=== PATIENT | male | born 1970 | race Caucasian/White ===

== ENCOUNTER → 2016-02-28 | Emergency (ER) | payer OTHER ==
[~2016-02-28] MED LIST: CEFAZOLIN (PRE-DOCKED) 50 ML IVPB ONE; CLINDAMYCIN 600MG PREMIX IVPB 50 ML IVPB ONE; FOLIC ACID 1 MG TABLET (FP) ONE; LORazepam 0.5 MG TABLET ONE; METHADONE HCL 10 MG TABLET ONE; ONDANSETRON 4 MG/2 ML VIAL ONE; PIPERACILLIN/TAZOB 3.375 GM 50 ML IVPB ONE; POTASSIUM CHLORIDE 40 MEQ/30 ML UNIT DOSE CUP ONE; POTASSIUM CHLORIDE TABS 20 MEQ TABLET.ER (FP) PO ONE; SILVER SULFADIAZINE 1% TOP CREAM 50 GM JAR TP ONE; VANCOMYCIN 1 GRAM (PRE-DOCKED) 250 ML IVPB ONE; chlordiazePOXIDE HCL 25 MG CAPSULE ONE; morphine CARPU-JECT 2 MG/1 ML DISP.SYRIN ONE; morphine CARPU-JECT 4 MG/1 ML DISP.SYRIN ONE
[2016-02-28 03:12] VITALS: BP 118/68; PULSE 95; TEMP 98; BMI 34.5
--- NOTE | 2016-02-28 04:20 | PDOC ---
History of Present Illness - General Chief Complaint: Injury Stated Complaint: FALL ( NOSE BLEED) Time Seen by Provider: 02/28/16 03:19 History Source: Patient, Family Exam Limitations: No Limitations - History of Present Illness Initial Comments: 02/28/16 04:15 Patient is a 45 year old male with h/o exploratary laparotomy for perforated viscus with bowel resection hernia c/o laceration to the nose since [employer]. States was walking up the stairs and got his foot caught on a nail on the step, tripped and fell on the steps hitting his nose. He has no LOC, no dizziness, no prodrome. Tetanus is UTD. PMD: [facility] PMHX: as above PSOCHX: (+) occ etoh, (-) cig, (-) drug PFamHx: noncontributory ALL: NKDA GENERAL/CONSTITUTIONAL: [No fever or chills. No weakness. No weight change.] HEAD, EYES, EARS, NOSE AND THROAT: [No change in vision. No ear pain or discharge. No sore throat.] CARDIOVASCULAR: [No chest pain or shortness of breath.] RESPIRATORY: [No cough, wheezing, or hemoptysis.] GASTROINTESTINAL: [No nausea, vomiting, diarrhea or constipation. No rectal bleeding.] GENITOURINARY: [No dysuria, frequency, or change in urination.] MUSCULOSKELETAL: [No joint or muscle swelling or pain. No neck or back pain.] SKIN AND BREASTS: (+) open wound to the left calf (chronic) or easy bruising.] NEUROLOGIC: [No headache, vertigo, loss of consciousness, or loss of sensation.] PSYCHIATRIC: [No depression or anxiety.] ENDOCRINE: [No increased thirst. No abnormal weight change.] HEMATOLOGIC/LYMPHATIC: [No anemia, easy bleeding, or history of blood clots.] ALLERGIC/IMMUNOLOGIC: [No hives or skin allergy. No latex allergy.] GENERAL: [The patient is awake, alert, and fully oriented, in no acute distress. ] HEAD: [Normal with no signs of trauma.] EYES: [Pupils equal, round and reactive to light, extraocular movements intact, sclera anicteric, conjunctiva clear.] ENT: [Ears normal, nares patent, oropharynx clear without exudates. Moist mucous membranes.] NECK: [Normal range of motion, supple without lymphadenopathy, JVD, or masses.] LUNGS: [Breath sounds equal, clear to auscultation bilaterally. No wheezes, and no crackles.] HEART: [Regular rate and rhythm, normal S1 and S2 without murmur, rub.] ABDOMEN: [Soft, nontender, normoactive bowel sounds. No guarding, no rebound. No masses.] EXTREMITIES: [Normal range of motion, no edema. No clubbing or cyanosis. No cords, erythema, or tenderness.] NEUROLOGICAL: [Cranial nerves II through XII grossly intact. Normal speech, normal gait.] PSYCH: [Normal mood, normal affect.] SKIN: (+) 2 cm laceration to the bridge of the nose, no septal hematoma, no epistaxis, large open wound to the left calf with good granulating tissue. Warm , Dry, normal turgor, no rashes or lesions noted.] Past History - Past Medical History Allergies/Adverse Reactions: Allergies Allergy/AdvReac Type Severity Reaction Status Date / Time No Known Allergies Allergy Verified 02/28/16 02:57 Home Medications: Ambulatory Orders Furosemide [Lasix -] 40 mg PO DAILY 03/27/15 Lactulose 20 gm PO Q8H 03/27/15 Methadone [Dolophine -] 10 mg PO DAILY 03/27/15 Pantoprazole Sodium [Protonix] 40 mg PO DAILY 03/27/15 Propranolol HCl 10 mg PO Q8H 03/27/15 Quetiapine Fumarate [Seroquel -] 25 mg PO BID 03/27/15 Spironolactone 50 mg PO DAILY 03/27/15 Doxepin HCl [Sinequan -] 10 mg PO HS 02/25/16 Folic Acid 1 mg PO DAILY 02/25/16 Thiamine HCl [Vitamin B1] 100 mg PO BID 02/25/16 GI Disorders: Yes (GI BLEED) Liver Disease: Yes (HEPATITS B) - Surgical History Abdominal Surgery: Yes (GI BLEED/HERNIA) Neurologic Surgery: Yes - Psycho/Social/Smoking Cessation Hx Anxiety: No Suicidal Ideation: No Smoking Status: Yes Smoking History: Former smoker Have you smoked in the past 12 months: Yes Number of Cigarettes Smoked Daily: 10 If you are a former smoker, when did you quit?: 2013 Information on smoking cessation initiated: No 'Breaking Loose' booklet given: 02/25/16 Hx Alcohol Use: Yes Drug/Substance Use Hx: Yes Substance Use Type: Opiates Hx Substance Use Treatment: Yes (MMTP) *Physical Exam - Vital Signs Last Vital Signs Temp Pulse Resp BP Pulse Ox 98 F 95 H 18 118/68 99 02/28/16 02:51 02/28/16 02:51 02/28/16 02:51 02/28/16 02:51 02/28/16 02:51 Procedures - Laceration/Wound Repair Proximal Nose Wound Length: to 2.5 cm Wound Explored: clean Wound's Depth, Shape: superficial, irregular Irrigated w/ Saline: Yes Betadine Prep: Yes Wound Repaired With: Steri-strips, Dermabond Medical Decision Making - Medical Decision Making 02/28/16 04:20 Patient is a 45 year old male with h/o exploratary laparotomy for perforated viscus with bowel resection hernia c/o laceration to the nose since [employer], mechanical fall. Will dermabond and strips Wound care provided by the nurse I discussed the physical exam findings, ancillary test results and final diagnoses with the patient. I answered all of the patient's questions. The patient was satisfied with the care received and felt comfortable with the discharge plan and treatment plan. The Patient agrees to follow up with the primary care physician within 24-72 hours. *DC/Admit/Observation/Transfer Diagnosis at time of Disposition: Laceration, Open wound - Discharge Dispostion Disposition: HOME Condition at time of disposition: Stable - Patient Instructions Printed Discharge Instructions: DI for Laceration Repair With Dermabond Additional Instructions: Do not put any oil, lotions or cream on the laceration, wash with soap and water the strip with fall off in a few days. Return to the ED if the wound becomes hot, red, and discharging, for fever.
== END | disposition home or self-care (01) ==
LOC: JER 02:48
PROC: 09QKXZZ Repair Nasal Mucosa and Soft Tissue, External Approach (ICD-10-PCS; principal; 2016-02-28)
DX: S01.21XA Laceration without foreign body of nose, initial encounter (principal); S81.802A Unspecified open wound, left lower leg, initial encounter; W10.8XXA Fall (on) (from) other stairs and steps, initial encounter; Y93.89 Activity, other specified; Y92.89 Other specified places as the place of occurrence of the external cause; Y99.8 Other external cause status
CPT/HCPCS: 12011-25; 99282-25

== ENCOUNTER 2016-03-29 03:32 | Emergency (ER) | payer OTHER ==
[2016-03-29] MEDS ORDERED: KETOROLAC TROMETHAMINE 60 MG/2 ML VIAL IM ONE (05:00)
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
[2016-03-29] MEDS ORDERED: KETOROLAC TROMETHAMINE 60 MG/2 ML VIAL ONE (05:15)
[2016-03-29 05:31] VITALS: BP 145/85; PULSE 89; TEMP 98.1; BMI 35.4
== END 2016-03-29 06:29 | disposition home or self-care (01) ==
LOC: JER 03:32
PROC: 3E0233Z Introduction of Anti-inflammatory into Muscle, Percutaneous Approach (ICD-10-PCS; principal; 2016-03-29)
DX: L03.115 Cellulitis of right lower limb (principal); I83.018 Varicose veins of right lower extremity with ulcer other part of lower leg; R18.8 Other ascites; F10.10 Alcohol abuse, uncomplicated; F11.10 Opioid abuse, uncomplicated; B18.2 Chronic viral hepatitis C
CPT/HCPCS: 96372; 99284-25

== ENCOUNTER 2016-05-28 13:09 | Inpatient (IN) | payer OTHER ==
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
[2016-05-28 14:22] VITALS: BMI 38.0
[2016-05-28 15:29] LABS: BASOPHIL 2.6 % (0-2.0); EOSINOPHIL 6.5 % (0-4.5); MCH 26.9 pg (25.7-33.7); MEAN CELL VOLUME 81.4 fl (80-96); NEUTROPHILS 55.8 % (42.8-82.8); PLATELET COUNT 58 K/MM3 (134-434); RDW 18.7 % (11.9-15.9); WHITE BLOOD COUNT 3.7 K/mm3 (4.0-10.0)
[2016-05-28 16:04] LABS: ALBUMIN 2.4 g/dl (3.4-5.0); ANION GAP 10 (8-16); CALCIUM 7.6 mg/dL (8.5-10.1); CO2 27 mmol/L (21-32); COCKROFT - GAULT 260.05; CREATININE 0.5 mg/dL (0.7-1.3); GLUCOSE,RANDOM 86 mg/dL (74-106); SGOT/AST 134 U/L (15-37)
[2016-05-28 16:14] LABS: ALK PHOS 350 U/L (45-117); BILIRUBIN,TOTAL 1.8 mg/dL (0.2-1.0); SGPT/ALT 61 U/L (12-78); TOT PROT 7.9 g/dl (6.4-8.2)
[2016-05-28] MEDS ORDERED: POTASSIUM CHLORIDE TABS 20 MEQ TABLET.ER (FP) PO ONE (17:35)
[2016-05-28] MEDS ORDERED: MAGNESIUM SULF 50% (8.12 MEQ/2 ML-1 GM VIAL) IVPB ONE (19:20)
[2016-05-28] MEDS ORDERED: FOLIC ACID INJECTION - 1 MG, THIAMINE HCL 100 MG, MULTIVIT INJECTION ADULT 10 ML in SOD... IVPB ONE (20:24)
[2016-05-28] MEDS ORDERED: KCL 10 MEQ IVPB 100 ML IVPB ONE ×2 (21:43→23:12)
[2016-05-28] MEDS ORDERED: KCL 10 MEQ IVPB 100 ML IVPB SCH (21:45)
[2016-05-28] MEDS: KCL 10 MEQ IVPB 100 ML IVPB SCH ×2 (21:48→23:21)
[2016-05-28 23:48] LABS: ALBUMIN 2.2 g/dl (3.4-5.0); ANION GAP 9 (8-16); BILIRUBIN,TOTAL 1.9 mg/dL (0.2-1.0); CALCIUM 7.3 mg/dL (8.5-10.1); CO2 28 mmol/L (21-32); COCKROFT - GAULT 260.05; CREATININE 0.5 mg/dL (0.7-1.3); GLUCOSE,RANDOM 105 mg/dL (74-106); SGOT/AST 116 U/L (15-37); SGPT/ALT 53 U/L (12-78); TOT PROT 7.2 g/dl (6.4-8.2)
[2016-05-28 23:49] LABS: ALK PHOS 284 U/L (45-117)
[2016-05-29] MEDS ORDERED: KCL 10 MEQ IVPB 100 ML IVPB ONE (00:46)
[2016-05-29] MEDS ORDERED: POTASSIUM CHLORIDE TABS 20 MEQ TABLET.ER (FP) PO ONE ×2 (02:32→03:45)
[2016-05-29] MEDS ORDERED: VANCOMYCIN 1,000 MG in DEXTROSE 5%-WATER - 250 ML IVPB ONE (06:07)
[2016-05-29] MEDS ORDERED: VANCOMYCIN 1 GRAM (PRE-DOCKED) 250 ML IVPB ONE (08:16)
[2016-05-29] MEDS ORDERED: ACETAMINOPHEN 325 MG TABLET (FP) ONE (08:27)
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
[2016-05-29] MEDS ORDERED: chlordiazePOXIDE HCL 25 MG CAPSULE PO PRN (09:39)
[2016-05-29] MEDS ORDERED: chlordiazePOXIDE HCL 25 MG CAPSULE PO ONE (09:39)
[2016-05-29] MEDS: HEPARIN NA (PORCINE) 5,000 UNITS/ML 1ML VIAL SQ SCH ×2 (10:27→23:14)
[2016-05-29] MEDS: CLINDAMYCIN 600MG PREMIX IVPB 50 ML IVPB SCH ×2 (10:27→17:06)
[2016-05-29] MEDS ORDERED: METHADONE HCL 5 MG TABLET PO SCH (11:45)
[2016-05-29] MEDS: METHADONE HCL 5 MG TABLET PO SCH (12:13)
[2016-05-29] MEDS: chlordiazePOXIDE HCL 25 MG CAPSULE PO SCH ×2 (16:46→23:14)
[2016-05-30] MEDS: CLINDAMYCIN 600MG PREMIX IVPB 50 ML IVPB SCH ×2 (01:28→11:10)
[2016-05-30] MEDS: chlordiazePOXIDE HCL 25 MG CAPSULE PO SCH ×2 (05:31→11:09)
[2016-05-30] MEDS: METHADONE HCL 5 MG TABLET PO SCH (06:18)
[2016-05-30 08:22] LABS: MCH 26.8 pg (25.7-33.7); MCHC 32.7 g/dl (32.0-35.9); MEAN PLT VOLUME 8.3 fl (7.5-11.1); PLATELET COUNT 42 K/MM3 (134-434); WHITE BLOOD COUNT 2.6 K/mm3 (4.0-10.0)
[2016-05-30 08:59] LABS: ALBUMIN 2.1 g/dl (3.4-5.0); ALK PHOS 241 U/L (45-117); ANION GAP 10 (8-16); BILIRUBIN,TOTAL 2.7 mg/dL (0.2-1.0); CALCIUM 8.1 mg/dL (8.5-10.1); CO2 23 mmol/L (21-32); COCKROFT - GAULT 260.05; CREATININE 0.5 mg/dL (0.7-1.3); GLUCOSE,RANDOM 83 mg/dL (74-106); MAGNESIUM 1.7 mg/dL (1.8-2.4); SGOT/AST 124 U/L (15-37); SGPT/ALT 53 U/L (12-78); TOT PROT 7.1 g/dl (6.4-8.2)
[2016-05-30] MEDS: HEPARIN NA (PORCINE) 5,000 UNITS/ML 1ML VIAL SQ SCH (11:10)
--- NOTE | 2016-05-30 13:21 | PN ---
Progress Note (short form) - Note Progress Note: ID Consult dictated Cellulitis R LE Fever,possible sepsis Non-healing R LE ulcers Chronic liver disease Polysubstance use Empiric cefazolin Wound care evaluation Await BC
[2016-05-30] MEDS ORDERED: POTASSIUM CHLORIDE TABS 20 MEQ TABLET.ER (FP) PO ONE (13:35)
[2016-05-30] MEDS ORDERED: MAGNESIUM OXIDE 400 MG TABLET (FP) PO ONE (13:45)
[2016-05-30] MEDS: CEFAZOLIN (PRE-DOCKED) 50 ML IVPB SCH ×2 (14:11→17:59)
--- NOTE | 2016-05-30 14:37 | PN ---
Progress Note (short form) - Note Progress Note: Subjective: The patient was seen and examined at the bedside, he states he has had the wounds on his left leg for months and sees Dr. Garcia in the office. He reports having a casting operator but does not recall her name. Quant gold from previous admission positive, now with no evidence of Tb. No hemoptysis, no chest x-ray evidence. Discussed with Dr. Gasca, will need outpatient follow-up, no intervention now. Current Medications Generic Name Dose Route Start Last Admin Trade Name Freq PRN Reason Stop Dose Admin Chlordiazepoxide HCl 25 mg 05/29/16 09:39 Librium - PO 06/01/16 09:38 Q4H PRN WITHDRAWAL(CONT SUBST) Chlordiazepoxide HCl 25 mg 05/30/16 17:00 Librium - PO 05/31/16 11:01 T4C-VRA KENDRICK Chlordiazepoxide HCl 15 mg 05/31/16 17:00 Librium - PO 06/01/16 11:01 [id number] KENDRICK Heparin Sodium (Porcine) 5,000 unit 05/29/16 10:00 05/30/16 11:10 Heparin - SQ 5,000 unit BID KENDRICK Administration Cefazolin Sodium 50 mls @ 100 mls/hr 05/30/16 13:30 05/30/16 14:11 Ancef 1gm Ivpb (Pre-Docked) IVPB 100 mls/hr Q8H-IV KENDRICK Administration Methadone HCl 5 mg 05/29/16 12:15 05/30/16 06:18 Dolophine - PO 5 mg DAILY@0600 KENDRICK Administration Objective: Vital Signs Period Temp Pulse Resp BP Sys/Choi Pulse Ox Last 24 Hr 98.3 F-99.4 F 64-78 16-20 125-139/66-80 97-100 Physical Exam: General: NAD, A&Ox3 HEENT: No tongue fasiculations Lungs: Patient refused Heart: Patient refused Abd: Patient refused Ext: RLE with dressing, patient refused to take dressing off CBCD WBC 2.6 K/mm3 (4.0-10.0) L 05/30/16 06:00 RBC 3.74 M/mm3 (4.00-5.60) L 05/30/16 06:00 Hgb 10.0 GM/dL (11.7-16.9) L 05/30/16 06:00 Hct 30.7 % (35.4-49) L 05/30/16 06:00 MCV 82.0 fl (80-96) 05/30/16 06:00 MCHC 32.7 g/dl (32.0-35.9) 05/30/16 06:00 RDW 18.0 % (11.9-15.9) H 05/30/16 06:00 Plt Count 42 K/MM3 (134-434) L D 05/30/16 06:00 MPV 8.3 fl (7.5-11.1) 05/30/16 06:00 CMP Sodium 142 mmol/L (136-145) 05/30/16 06:00 Potassium 3.4 mmol/L (3.5-5.1) L 05/30/16 06:00 Chloride 109 mmol/L (98-107) H 05/30/16 06:00 Carbon Dioxide 23 mmol/L (21-32) 05/30/16 06:00 Anion Gap 10 (8-16) 05/30/16 06:00 BUN 7 mg/dL (7-18) D 05/30/16 06:00 Creatinine 0.5 mg/dL (0.7-1.3) L 05/30/16 06:00 Creat Clearance w eGFR > 60 (>60) 05/30/16 06:00 Random Glucose 83 mg/dL (74-106) D 05/30/16 06:00 Calcium 8.1 mg/dL (8.5-10.1) L 05/30/16 06:00 Total Bilirubin 2.7 mg/dL (0.2-1.0) H D 05/30/16 06:00 AST 124 U/L (15-37) H 05/30/16 06:00 ALT 53 U/L (12-78) 05/30/16 06:00 Alkaline Phosphatase 241 U/L (45-117) H 05/30/16 06:00 Total Protein 7.1 g/dl (6.4-8.2) 05/30/16 06:00 Albumin 2.1 g/dl (3.4-5.0) L 05/30/16 06:00 Microbiology 05/29/16 09:50 Blood - Peripheral Venous Blood Culture - Preliminary NO GROWTH OBTAINED AFTER 24 HOURS, INCUBATION TO CONTINUE FOR 4 DAYS. 05/29/16 09:50 Blood - Peripheral Venous Blood Culture - Preliminary NO GROWTH OBTAINED AFTER 24 HOURS, INCUBATION TO CONTINUE FOR 4 DAYS. Assessment: This is a 45 year old male with PMHx of alcohol abuse, SBO s/p partial bowel resection, HCV, possible liver cirrhosis, previous heroin user, ascites, esophageal varices, rheumatoid arthritis who presented to the ED after being found unresponsive possibly 2/2 opiate overdose. Plan: 1) ID: RLE cellulitis - Per ID will start Cefazolin - F/u blood cultures - F/u Dr. Garcia for wound care (patient follows outpatient) - Appreciate ID consult 2) Psych: Opiate overdose - Continue Methadone Acute alcohol withdrawal - Continue Librium taper - Continue Folic acid - Continue thiamine - Continue Multivitamin 3) GI: Liver cirrhosis, HCV - Follows with outpatient casting operator Thrombocytopenia, worsening 2/2 cirrhosis - Continue to trend - Transfuse it platelets <10 with no active bleeding Esophageal varices - No active issues 4) F/E/N: - Monitor electrolytes - Hypomagnesemia: replete - Hypokalemia: replete - Sodium controlled diet 5) Prophylaxis: - Hold all chemical DVT prophylaxis 2/2 thrombocytopenia - OOB ambulating - SCD left leg only (not on right leg 2/2 ulcerations) 6) Dispo: - Requires continued inpatient care CODE STATUS: FULL CODE Visit type - Emergency Visit Emergency Visit: Yes ED Registration Date: 05/29/16 Care time: The patient presented to the Emergency Department on the above date and was hospitalized for further evaluation of their emergent condition. - New Patient This patient is new to me today: Yes Date on this admission: 05/30/16 - Critical Care Critical Care patient: No
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
[2016-05-30] MEDS ORDERED: chlordiazePOXIDE HCL 25 MG CAPSULE PO SCH (17:00)
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
[2016-05-30] MEDS ORDERED: COLLAGENASE CLOSTRIDIUM HIST. 30 GRAMS TUBE TP SCH (19:00)
[2016-05-30] MEDS ORDERED: traMADol HCL 50 MG TABLET PO PRN (20:45)
[2016-05-30 21:28] LABS: URINE MARIJUANA THC NEGATIVE ng/ml (CUTOFF=50)
[2016-05-30 22:57] VITALS: BP 141/72; PULSE 96; TEMP 99.8
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
[2016-05-31] MEDS ORDERED: MULTIVITAMINS (DAILY MVI) TABLET (FP) PO SCH (10:00)
[2016-05-31] MEDS ORDERED: THIAMINE HCL 100 MG TABLET (FP) PO SCH (10:00)
[2016-05-31] MEDS ORDERED: FOLIC ACID 1 MG TABLET (FP) PO SCH (10:00)
--- NOTE | 2016-05-31 12:58 | EKG ---
Test Reason : Blood Pressure : / mmHG Vent. Rate : 081 BPM Atrial Rate : 081 BPM P-R Int : 140 ms QRS Dur : 090 ms QT Int : 422 ms P-R-T Axes : 058 014 036 degrees QTc Int : 490 ms NORMAL SINUS RHYTHM PROLONGED QT ABNORMAL ECG WHEN COMPARED WITH ECG OF 17-MAR-2016 02:08, NO SIGNIFICANT CHANGE WAS FOUND Confirmed by SUZANNE VARGAS MD ([id number]) on 05/31/2016 12:57:26 PM Referred By: Confirmed By:SUZANNE VARGAS MD
[2016-05-31] MEDS ORDERED: chlordiazePOXIDE 5 MG CAPSULE PO SCH (17:00)
[2016-06-01] MEDS ORDERED: chlordiazePOXIDE 5 MG CAPSULE PO SCH (17:00)
== END 2016-05-30 22:00 | disposition left against medical advice (07) | DRG 812 ==
LOC: JER 13:09 → JERBED 05-29 06:09 → UNDOADMIN 05-29 06:17 → JERBED 05-29 06:17 → J7W 05-29 09:33
PROVIDERS: ADMIT Internal Medicine; ATTEND Internal Medicine
PROC: HZ2ZZZZ Detoxification Services for Substance Abuse Treatment (ICD-10-PCS; principal; 2016-05-29)
DX: T40.2X1A Poisoning by other opioids, accidental (unintentional), initial encounter (principal); A41.89 Other specified sepsis; R00.0 Tachycardia, unspecified; I83.019 Varicose veins of right lower extremity with ulcer of unspecified site; L97.919 Non-pressure chronic ulcer of unspecified part of right lower leg with unspecified severity; L03.115 Cellulitis of right lower limb; K70.30 Alcoholic cirrhosis of liver without ascites; F11.10 Opioid abuse, uncomplicated; F17.210 Nicotine dependence, cigarettes, uncomplicated; F10.230 Alcohol dependence with withdrawal, uncomplicated; F19.10 Other psychoactive substance abuse, uncomplicated; E83.42 Hypomagnesemia; E87.6 Hypokalemia; D69.6 Thrombocytopenia, unspecified; I85.00 Esophageal varices without bleeding; M06.80 Other specified rheumatoid arthritis, unspecified site; K42.9 Umbilical hernia without obstruction or gangrene; B19.10 Unspecified viral hepatitis B without hepatic coma; I50.9 Heart failure, unspecified; R18.8 Other ascites
CPT/HCPCS: 36415; 71010-TC; 80053; 80307; 83605; 83735; 85025; 85027; 87040; 93005; 93010; 93971-TC; 99285-25; J1644

== ENCOUNTER 2016-07-26 05:15 | Inpatient (IN) | payer OTHER ==
[2016-07-26] MEDS ORDERED: morphine CARPU-JECT 4 MG/1 ML DISP.SYRIN ONE (05:48)
[2016-07-26] MEDS ORDERED: ONDANSETRON 4 MG/2 ML VIAL IVPUSH ONE (05:50)
[2016-07-26] MEDS ORDERED: VANCOMYCIN 1,000 MG in DEXTROSE 5%-WATER - 250 ML IVPB ONE (05:50)
[2016-07-26] MEDS ORDERED: morphine CARPU-JECT 4 MG/1 ML DISP.SYRIN IVPUSH ONE (05:50)
[2016-07-26] MEDS ORDERED: SODIUM CHLORIDE 1,000 ML IV STA (05:50)
--- NOTE | 2016-07-26 05:56 | PDOC ---
History of Present Illness - General Chief Complaint: Laceration Stated Complaint: BLEEDING/RT LEG WOUND Time Seen by Provider: 07/26/16 05:21 History Source: Patient Exam Limitations: No Limitations - History of Present Illness Initial Comments: 07/26/16 06:21 46yo Male patient w/ PmHx: EtOH and Opiate abuse, Cirrhosis, Chronic edema, Hypokalemia, RLE Wounds, Cellulitis presents to ED via EMS from home. Patient reports while changing wound dressings, his leg began to bleed profusely. Patient called EMS and was transported to this ED with tourniquet applied to right LE. Timing/Duration: reports: just prior to arrival Severity: Yes: moderate Location: reports: extremities Respiratory Risk Factors: denies: no cause identified, exposure to illness, exposure to allergen, foods, insect bite, insect sting, medications, pollen, soaps, other Modifying Factors: worse with: antihistamine, calamine lotion, prednisone, scratching, topical steriods, other Associated Symptoms: denies: denies symptoms, blisters, change in skin texture, edema, fever, flushing, headache, hives, jaundice, malaise, nasal congestion, numbness, pallor, paresthesia, petechiae, rash, sore throat, swelling/mass/lumps , tingling, other Past History - Travel Traveled outside of the country in the last 30 days: No Close contact w/someone who was outside of country & ill: No - Past Medical History Allergies/Adverse Reactions: Allergies Allergy/AdvReac Type Severity Reaction Status Date / Time No Known Allergies Allergy Verified 07/26/16 05:52 Home Medications: Ambulatory Orders Unobtainable [Unobtainable] 07/26/16 Anemia: No Asthma: No Cancer: No Cardiac Disorders: No CVA: No COPD: No CHF: No Dementia: No Diabetes: No GI Disorders: Yes (GI BLEED) Disorders: No HTN: Yes Hypercholesterolemia: No Liver Disease: Yes (HEPATITS C) Seizures: No Thyroid Disease: No - Surgical History Abdominal Surgery: Yes (GI BLEED/HERNIA) Appendectomy: No Cardiac Surgery: No Cholecystectomy: No Lung Surgery: No Neurologic Surgery: Yes Orthopedic Surgery: No - Immunization History Immunization Up to Date: No - Psycho/Social/Smoking Cessation Hx Anxiety: No Suicidal Ideation: No Smoking Status: Yes Smoking History: Current every day smoker Have you smoked in the past 12 months: No Number of Cigarettes Smoked Daily: 10 If you are a former smoker, when did you quit?: 06/11/2013 Information on smoking cessation initiated: No 'Breaking Loose' booklet given: 02/25/16 Hx Alcohol Use: Yes Drug/Substance Use Hx: No Substance Use Type: Opiates Hx Substance Use Treatment: Yes (MMTP) Review of Systems - Review of Systems Able to Perform ROS?: Yes Is the patient limited Hungarian proficient: No Constitutional: No: Chills, Fever Respiratory: No: Shortness of Breath, Stridor, Wheezing Cardiac (ROS): No: Chest Pain ABD/GI: No: Constipated, Diarrhea, Nausea, Poor Appetite, Poor Fluid Intake, Vomiting, Abdominal cramping : No: Dysuria, Hematuria Musculoskeletal: No: Back Pain Integumentary: Yes: Erythema, Other (3 Large Wounds) Neurological: No: Headache, Seizure All Other Systems: Reviewed and Negative *Physical Exam - Vital Signs Last Vital Signs Temp Pulse Resp BP Pulse Ox 98.1 F 112 H 16 123/63 96 07/26/16 05:19 07/26/16 05:19 07/26/16 05:19 07/26/16 05:19 07/26/16 05:19 - Physical Exam General Appearance: Yes: Nourished, Appropriately Dressed, Disheveled, Mild Distress. No: Apparent Distress Neck: positive: Trachea midline, Supple. negative: Lymphadenopathy (R), Lymphadenopathy (L) Respiratory/Chest: positive: Lungs Clear, Normal Breath Sounds. negative: Chest Tender, Respiratory Distress, Accessory Muscle Use, Labored Respiration, Rapid RR Cardiovascular: positive: Tachycardia Gastrointestinal/Abdominal: positive: Normal Bowel Sounds, Soft, Distended. negative: Guarding, Rebound, Tenderness Musculoskeletal: positive: Normal Inspection. negative: CVA Tenderness Extremity: positive: Normal Capillary Refill, Normal Range of Motion, Swelling, Erythema, Inflammation, Other (3 Large Wounds infected, odor, bleeding controlled. +Weeping Cellulitis w/ excoration). 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
[2016-07-26 06:13] LABS: BASOPHIL 2.9 % (0-2.0); EOSINOPHIL 6.1 % (0-4.5); MCH 24.4 pg (25.7-33.7); MEAN CELL VOLUME 76.1 fl (80-96); NEUTROPHILS 52.3 % (42.8-82.8); RDW 18.4 % (11.9-15.9); WHITE BLOOD COUNT 4.2 K/mm3 (4.0-10.0)
[2016-07-26] MEDS ORDERED: ONDANSETRON 4 MG/2 ML VIAL ONE (06:15)
[2016-07-26] MEDS ORDERED: VANCOMYCIN 1 GRAM (PRE-DOCKED) 250 ML IVPB ONE (06:15)
[2016-07-26 06:36] LABS: ANION GAP 10 (8-16); CALCIUM 7.3 mg/dL (8.5-10.1); CO2 27 mmol/L (21-32); COCKROFT - GAULT 221.44; CREATININE 0.5 mg/dL (0.7-1.3); GLUCOSE,RANDOM 146 mg/dL (74-106); SGOT/AST 96 U/L (15-37); SGPT/ALT 43 U/L (12-78)
[2016-07-26 06:38] LABS: ALK PHOS 230 U/L (45-117); BILIRUBIN,TOTAL 1.9 mg/dL (0.2-1.0); TOT PROT 7.5 g/dl (6.4-8.2)
[2016-07-26 06:40] LABS: INR 1.47 (0.82-1.09); PROTHROMBIN TIME (PATIENT) 16.3 SEC (9.98-11.88)
[2016-07-26 06:43] LABS: ACTIVATED PTT 39.2 SECONDS (26.9-34.4)
[2016-07-26 07:33] LABS: MEAN PLT VOLUME 8.4 fl (7.5-11.1); PLATELET COUNT 52 K/MM3 (134-434)
[2016-07-26 07:34] LABS: PLATELET COMMENT2 NO CLOTTING DETECTED
[2016-07-26 09:15] LABS: URINE MARIJUANA THC NEGATIVE ng/ml (CUTOFF=50)
[2016-07-26] MEDS ORDERED: PIPERACILLIN/TAZOB 3.375 GM/50 ML PRE-DOCKED IVPB ONE (10:35)
[2016-07-26] MEDS ORDERED: PIPERACILLIN/TAZOB 3.375 GM/50 ML PRE-DOCKED IV ONE (10:35)
[2016-07-26] MEDS: FOLIC ACID 1 MG TABLET (FP) PO SCH (10:49)
[2016-07-26] MEDS: THIAMINE HCL 100 MG TABLET (FP) PO SCH (11:20)
[2016-07-26] MEDS ORDERED: chlordiazePOXIDE HCL 25 MG CAPSULE PO PRN (11:49)
[2016-07-26] MEDS ORDERED: METHADONE HCL 10 MG TABLET (FOR DETOX USE ONLY) PO ONE ×2 (11:49→23:00)
[2016-07-26] MEDS ORDERED: METHADONE HCL 10 MG TABLET ONE (12:04)
[2016-07-26] MEDS: chlordiazePOXIDE HCL 25 MG CAPSULE PO SCH ×3 (12:09→23:08)
--- NOTE | 2016-07-26 12:49 | PN ---
Progress Note (short form) - Note Progress Note: ID consult dictated imp/reccd 46 year old man with history of etoh use, denies IV drug use, chronic RLE ulcer was recently seen at [facility]- discharged on doxycycline (I called his pharmacy) developed profuse bleeding from ulcer and called EMS no fevers itchy scaly rash now for three days that he attributes to antibiotics he is a very poor historian chronic venous stasis ulcer with associated cellulitis no history of MRSA can treat with cefazolin surgical f/u rash- consider derm evaluation etoh use liver cirrhosis Problem List - Problems (1) Cellulitis of right leg Code(s): L03.115 - CELLULITIS OF RIGHT LOWER LIMB (2) Venous stasis ulcer Code(s): I83.009 - VARICOSE VEINS OF UNSP LOWER EXTREMITY W ULCER OF UNSP SITE L97.909 - NON-PRS CHRONIC ULC UNSP PRT OF UNSP LOW LEG W UNSP SEVERITY (3) Alcohol abuse Code(s): F10.10 - ALCOHOL ABUSE, UNCOMPLICATED (4) Liver cirrhosis Code(s): K74.60 - UNSPECIFIED CIRRHOSIS OF LIVER (5) Rash Code(s): R21 - RASH AND OTHER NONSPECIFIC SKIN ERUPTION
--- NOTE | 2016-07-26 13:20 | HP ---
CHIEF COMPLAINT: lower leg bleeding and redness PCP: HISTORY OF PRESENT ILLNESS: 45 yo M with h/o of HCV, cirrhosis, varices, EtOH abuse with admissions for withdrawal (no intubations, no seizures), opiate abuse on methadone maintenance at [facility] ( ), chronic edema with poorly healing ulcers presents with bleeding of lower ext. He is a poor historian and difficult to illicit history. When speaking with his partner she states that last night he was attempting to change his dressings and when he removed bandage wounds began to bleed and amount of blood loss was concerning and prompted visit to ER.Denies CP, CHOWDHURY, SOB, abd. pain , n/v. ER course was notable for: (1)No leukocytosis (2) (3) Recent Travel: PAST MEDICAL HISTORY:HCV, cirrhosis, varices, EtOH abuse PAST SURGICAL HISTORY: Social History: Smoking:PPD Alcohol:ETOH abuse with cirrhosis Drugs: Extasy Family History: Allergies No Known Allergies Allergy (Verified 07/26/16 05:52) HOME MEDICATIONS: Home Medications Medication Instructions Recorded Unobtainable [Unobtainable] 07/26/16 REVIEW OF SYSTEMS Patient uncooperative with review of symptoms. Refused to answer questions. PHYSICAL EXAMINATION Vital Signs - 24 hr 07/26/16 07/26/16 07/26/16 07:05 11:45 12:41 Temperature 98.0 F 98.1 F Pulse Rate [ 78 73 68 Right] Respiratory 18 18 20 Rate Blood Pressure 94/32 113/71 124/74 [Right Arm] O2 Sat by Pulse 94 L 98 99 Oximetry (%) GENERAL: lethargic no acute distress. HEAD:NC/AT EYES: PERRLA, sclera anicteris EARS, NOSE, THROAT: Dry mucous membranes. NECK: supple with no JVD, or masses. LUNGS:CTAB. No wheezes, and no crackles. No accessory muscle use. HEART:RRR, normal S1 and S2 without murmur, rub or gallop. ABDOMEN: Soft, nontender, distended, normoactive bowel sounds, no guarding, no rebound, no masses. MUSCULOSKELETAL: Normal range of motion at all joints. No bony deformities or tenderness. No CVA tenderness. UPPER EXTREMITIES: 2+ pulses, warm, well-perfused. No cyanosis. No clubbing. No peripheral edema. LOWER EXTREMITIES:R leg with 3 deep ulcerations and diffuse cellulitits up to groin. NEUROLOGICAL: lethargic Laboratory Results - last 24 hr 07/26/16 08:44 Opiates Screen Negative Methadone Screen Negative Barbiturate Screen Negative Phencyclidine Screen Negative Ur Amphetamines Screen Negative MDMA (Ecstasy) Screen Positive Benzodiazepines Screen Negative Cocaine Screen Negative U Marijuana (THC) Screen Negative ASSESSMENT/PLAN: 45 yo M with h/o of HCV, cirrhosis, varices, EtOH abuse admitted for cellulitis and bleeding leg ulcers. Problem List - Problem (1) Venous stasis ulcer Assessment/Plan: * Chronic ulcers previously seen by Dr. Garcia ; will consult * Wounds have been bandaged and wrapped with dry sterile dressing. * Very foul smell - No history of MRSA * ID consulted * Vanco and Zosyn given in ED. (2) Cellulitis of right leg Assessment/Plan: * Extensive cellulits of RLE * Started on Vanco and Zosyn * ID consulted. (3) Liver cirrhosis Assessment/Plan: * LFT's AST mildly elevated. * Ammonia level pending. (4) Rash Assessment/Plan: * Patchy maculopapular rash * Unclear etiolgy * will consider Derm consult. (5) Alcohol abuse Assessment/Plan: * History of withdrawal with seizure. * Started on Librium detox protocol . * Will monitor for sign of withdrawal and DT's (6) Methadone dependence Assessment/Plan: * [facility] saw him 07/25/16 abd confirmed dose of 10mg PO daily. Visit type - Emergency Visit Emergency Visit: Yes ED Registration Date: 07/26/16 Care time: The patient presented to the Emergency Department on the above date and was hospitalized for further evaluation of their emergent condition. - New Patient This patient is new to me today: Yes Date on this admission: 07/27/16 - Critical Care Critical Care patient: No
--- NOTE | 2016-07-26 14:13 | PN ---
Teaching Attending Note Name of Resident: Alcon Tapia ATTENDING PHYSICIAN STATEMENT I saw and evaluated the patient. I reviewed the resident's note and discussed the case with the resident. I agree with the resident's findings and plan as documented. SUBJECTIVE: Patient is lying in bed with no acute distress, No shortness of breath. Family; Mother and Fiancee at bed side. OBJECTIVE: Vital Signs Temperature 98.1 F 07/26/16 11:45 Pulse Rate 68 07/26/16 12:41 Respiratory Rate 20 07/26/16 12:41 Blood Pressure 124/74 07/26/16 12:41 O2 Sat by Pulse Oximetry (%) 99 07/26/16 12:41 GENERAL: Lying in bed, sleeping, poor historian. in no acute distress. HEAD: Normal with no signs of trauma. EYES: Pupils equal, round and reactive to light, extraocular movements intact, sclera anicteric, conjunctiva clear. No lid lag. EARS, NOSE, THROAT: Ears normal, nares patent, oropharynx clear without exudates. Moist mucous membranes. NECK: Normal range of motion, supple without lymphadenopathy, JVD, or masses. LUNGS: Breath sounds equal, clear to auscultation bilaterally. No wheezes, and no crackles. No accessory muscle use. HEART: Regular rate and rhythm, normal S1 and S2 without murmur, rub or gallop. ABDOMEN: Soft, nontender, not distended, normoactive bowel sounds, NG,NR, no masses appreciated, has a midline scar due to having recent surgery. MUSCULOSKELETAL: Normal range of motion at all joints. No bony deformities or tenderness. No CVA tenderness. EXTREMITIES: 2+ pulses, warm, well-perfused. No calf tenderness. RLE redness above the wound, chronic venous stasis of RLE, No further bleeding. NEUROLOGICAL: Cranial nerves II-XII intact. Normal speech. Normal gait. PSYCHIATRIC: Cooperative. Good eye contact. Appropriate mood and affect. SKIN: Warm, dry, normal turgor, itchy scaly rash on right side of abdomen. CBCD WBC 4.2 K/mm3 (4.0-10.0) D 07/26/16 06:06 RBC 3.79 M/mm3 (4.00-5.60) L 07/26/16 06:06 Hgb 9.2 GM/dL (11.7-16.9) L 07/26/16 06:06 Hct 28.9 % (35.4-49) L 07/26/16 06:06 MCV 76.1 fl (80-96) L 07/26/16 06:06 MCHC 32.0 g/dl (32.0-35.9) 07/26/16 06:06 RDW 18.4 % (11.9-15.9) H 07/26/16 06:06 Plt Count 52 K/MM3 (134-434) L D 07/26/16 06:06 MPV 8.4 fl (7.5-11.1) 07/26/16 06:06 CMP Sodium 140 mmol/L (136-145) 07/26/16 06:06 Potassium 3.2 mmol/L (3.5-5.1) L 07/26/16 06:06 Chloride 103 mmol/L (98-107) 07/26/16 06:06 Carbon Dioxide 27 mmol/L (21-32) 07/26/16 06:06 Anion Gap 10 (8-16) 07/26/16 06:06 BUN 5 mg/dL (7-18) L D 07/26/16 06:06 Creatinine 0.5 mg/dL (0.7-1.3) L 07/26/16 06:06 Creat Clearance w eGFR > 60 (>60) 07/26/16 06:06 Random Glucose 146 mg/dL (74-106) H D 07/26/16 06:06 Calcium 7.3 mg/dL (8.5-10.1) L 07/26/16 06:06 Total Bilirubin 1.9 mg/dL (0.2-1.0) H D 07/26/16 06:06 AST 96 U/L (15-37) H D 07/26/16 06:06 ALT 43 U/L (12-78) 07/26/16 06:06 Alkaline Phosphatase 230 U/L (45-117) H 07/26/16 06:06 Total Protein 7.5 g/dl (6.4-8.2) 07/26/16 06:06 Albumin 2.0 g/dl (3.4-5.0) L 07/26/16 06:06 CARDIAC ENZYMES Creatine Kinase 302 IU/L (39-308) D 07/26/16 06:06 Current Medications Generic Name Dose Route Start Last Admin Trade Name Freq PRN Reason Stop Dose Admin Chlordiazepoxide HCl 50 mg 07/26/16 11:00 07/26/16 12:09 Librium - PO 07/27/16 05:01 50 mg [id number] KENDRICK Administration Chlordiazepoxide HCl 25 mg 07/26/16 11:49 Librium - PO 07/29/16 11:50 Q4H PRN WITHDRAWAL(CONT SUBST) Chlordiazepoxide HCl 25 mg 07/27/16 11:00 Librium - PO 07/28/16 05:01 [id number] KENDRICK Chlordiazepoxide HCl 15 mg 07/28/16 11:00 Librium - PO 07/29/16 05:01 [id number] KENDRICK Folic Acid 1 mg 07/26/16 10:00 07/26/16 10:49 Folic Acid - PO 1 mg DAILY KENDRICK Administration Cefazolin Sodium 2 gm/ 50 mls @ 200 mls/hr 07/26/16 18:00 Dextrose IVPB Q8H-IV KENDRICK Methadone HCl 10 mg 07/26/16 23:00 Dolophine - PO 07/26/16 23:01 ONCE@2300 ONE Methadone HCl 20 mg 07/27/16 10:00 Dolophine - PO 07/27/16 10:01 DAILY KENDRICK Methadone HCl 10 mg 07/30/16 10:00 Dolophine - PO 07/30/16 10:01 DAILY KENDRICK Methadone HCl 15 mg 07/28/16 10:00 Dolophine - PO 07/29/16 10:01 DAILY KENDRICK Methadone HCl 5 mg 07/31/16 06:00 Dolophine - PO 07/31/16 06:01 DAILY@0600 KENDRICK Thiamine HCl 100 mg 07/26/16 10:00 07/26/16 11:20 Vitamin B1 - PO 100 mg DAILY KENDRICK Administration Home Medications Medication Instructions Recorded Unobtainable [Unobtainable] 07/26/16 ASSESSMENT AND PLAN: Patient is a 46 year old man with history of etoh abuse, Heroin use 10 yrs ago on Methadone, presented to ED.due to developing profuse bleeding from the ulcer of RLE bleeding last night. Has a hx of chronic RLE ulcer was recently seen at [facility]- discharged on doxycycline # Acute cellulitis of RLE with chronic venous stasis ulcer: No further bleeding ; started on cefazolin IV, ID consult seen the patient in ED. Vascular surgery consult .s/p Pepito/nevaeh in ED. # Alcohol withdrawel: monitor for DTs ,as per patient's Fiancee he drinks beer starts looking for it on opening his eyes. Librium protocol . for consult. Folic acid/thiamine ordered. #hx of Heroin use on Methadone, Dr.Piirre Nathan on the case # Acute Hypokalemia on Pot[place] supplement continue DVT Px: early ambulation, patient was bleeding from RLE, No heparin for now.
--- NOTE | 2016-07-26 15:49 | CONS ---
INFECTIOUS DISEASE CONSULTATION DATE OF CONSULTATION: DATE OF DICTATION: 07/26/2016 REQUESTED BY: The hospitalist service. The patient was seen and examined in the emergency room. He is a very poor historian. Apparently, this morning, he developed profuse bleeding from his leg when he was changing his wound. He came to the emergency room. He was noted to have an associated cellulitis and admitted. As well, he notes he has an itchy rash that is confined to his arms and his abdomen that started 3 days ago. He has been taking oral antibiotics, he does not know what, which he was prescribed after an admission recently at [facility]. He does not know any other medications he is taking. He denies any fevers or chills. To me, he states he drinks alcohol, but has not drunk recently, and he denies any other substance use. He has no known drug allergies. I called his pharmacy on [facility], which he indicated was his primary pharmacy, and they state he filled a prescription for doxycycline 100 mg b.i.d. on July 19. They state he had not been taking any other medication since at least May or they have not filled medications for him. PAST MEDICAL HISTORY: Per the ER chart is notable for a prior GI bleed, hypertension, hepatitis C. He apparently has a history of liver cirrhosis and chronic leg edema. He also has a chronic ulcer on the right leg. He has a history of a venous stasis ulcer. He apparently has a history of cirrhosis, esophageal varices, and polysubstance use. SURGICAL HISTORY: Notable for hernia repair in the past. SOCIAL HISTORY: Positive for alcohol, tobacco and opiate use. He tested HIV negative in March 2016. MEDICATION: Currently is doxycycline 100 mg p.o. b.i.d. which he started July 19. REVIEW OF SYSTEMS: He reports pain in his right leg. PHYSICAL EXAMINATION: General: He is awake and alert. Vital signs: He is afebrile, temperature is 98.1, pulse of 68, blood pressure 124/74, respiratory rate is 20, O2 saturation is 99%. HEENT: He is normocephalic. His eyes are anicteric. Neck: Supple. Lungs: Clear to auscultation. Heart: Regular rate and rhythm. Extremities: He has edema of both legs. He has a dressing intact from the bleeding right leg where he has a stasis ulcer on the posterior aspect of the right leg and he has surrounding erythema and induration which is painful to touch. He has 3 large open wounds. LABORATORIES: Notable for a white count of 4.2, hemoglobin 9.2, platelets are 52,000. He has an INR of 1.4. BUN and creatinine of 5 and 0.5, alkaline phosphatase is 230. Toxicology on admission was positive for Ecstasy. Blood cultures and wound cultures are pending. 1. In summary, this is a 46-year-old man with a history of alcohol use and liver cirrhosis with chronic ulcers with associated cellulitis of the right lower extremity. There is no history of MRSA. We could treat him with cefazolin, at this time, with surgical followup. 2. Itchy rash. Would consider Dermatology evaluation. 3. Liver cirrhosis. 4. Alcohol use. MICHAEL CARRILLO M.D. [id number]
[2016-07-26] MEDS ORDERED: CLINDAMYCIN IVPB 300 MG in DEXTROSE 5%-WATER - 48 ML IVPB SCH (18:00)
[2016-07-26] MEDS: CEFAZOLIN 2 GM/D5W 50 ML IVPB SCH (19:05)
[2016-07-26 20:06] VITALS: BMI 36.7
[2016-07-26] MEDS ORDERED: METHADONE HCL 10 MG TABLET PO ONE (23:00)
[2016-07-27] MEDS: CEFAZOLIN 2 GM/D5W 50 ML IVPB SCH ×3 (01:09→18:54)
[2016-07-27] MEDS: chlordiazePOXIDE HCL 25 MG CAPSULE PO SCH ×4 (06:19→23:04)
[2016-07-27] MEDS ORDERED: PT OWN MED DRAWER 7, Y5N ONE ×2 (09:52→18:17)
[2016-07-27] MEDS: THIAMINE HCL 100 MG TABLET (FP) PO SCH (09:54)
[2016-07-27] MEDS: FUROSEMIDE 40 MG TABLET (FP) PO SCH (09:54)
[2016-07-27] MEDS: POTASSIUM CHLORIDE TABS 20 MEQ TABLET.ER (FP) PO SCH (09:54)
[2016-07-27] MEDS: FOLIC ACID 1 MG TABLET (FP) PO SCH (09:54)
[2016-07-27] MEDS: METHADONE HCL 10 MG TABLET PO SCH (09:55)
[2016-07-27] MEDS ORDERED: METHADONE HCL 10 MG TABLET PO SCH (10:00)
[2016-07-27 10:33] LABS: BASOPHIL 0.7 % (0-2.0); EOSINOPHIL 3.2 % (0-4.5); MCH 24.7 pg (25.7-33.7); MCHC 32.1 g/dl (32.0-35.9); MEAN CELL VOLUME 76.9 fl (80-96); MEAN PLT VOLUME 8.3 fl (7.5-11.1); NEUTROPHILS 65.7 % (42.8-82.8); RDW 18.2 % (11.9-15.9); WHITE BLOOD COUNT 4.9 K/mm3 (4.0-10.0)
[2016-07-27 10:57] LABS: PLATELET COUNT 31 K/MM3 (134-434)
[2016-07-27 11:11] LABS: ALBUMIN 1.9 g/dl (3.4-5.0); ALK PHOS 179 U/L (45-117); ANION GAP 7 (8-16); BILIRUBIN,TOTAL 2.4 mg/dL (0.2-1.0); CALCIUM 7.4 mg/dL (8.5-10.1); CO2 27 mmol/L (21-32); COCKROFT - GAULT 281.28; CREATININE 0.4 mg/dL (0.7-1.3); GLUCOSE,RANDOM 87 mg/dL (74-106); MAGNESIUM 1.8 mg/dL (1.8-2.4); PHOSPHOROUS 2.2 mg/dL (2.5-4.9); SGOT/AST 82 U/L (15-37); SGPT/ALT 35 U/L (12-78); TOT PROT 7.2 g/dl (6.4-8.2)
[2016-07-27 11:12] LABS: INR 1.51 (0.82-1.09); PROTHROMBIN TIME (PATIENT) 16.8 SEC (9.98-11.88)
[2016-07-27] MEDS: LACTULOSE 20 GM/30 ML UDC (FOR ORAL USE ONLY) PO SCH ×3 (15:12→21:59)
--- NOTE | 2016-07-27 15:57 | PN ---
Progress Note (short form) - Note Progress Note: NAD no complaints Vital Signs Period Temp Pulse Resp BP Sys/Choi Pulse Ox Last 24 Hr 98.3 F-100.1 F 68-91 18-20 127-136/60-78 95-96 cor-rrr lungs clear leg examined, less erythema and induration +foulsmelling ulcer CBC, BMP 07/27/16 10:30 07/27/16 10:30 Microbiology 07/26/16 06:06 Blood - Peripheral Venous Blood Culture - Preliminary NO GROWTH OBTAINED AFTER 24 HOURS, INCUBATION TO CONTINUE FOR 4 DAYS. 07/26/16 06:06 Blood - Peripheral Venous Blood Culture - Preliminary NO GROWTH OBTAINED AFTER 24 HOURS, INCUBATION TO CONTINUE FOR 4 DAYS. a/p chronic venous stasis ulcer with associated cellulitis improving continue cefazolin, f/u with surgery rash- consider derm evaluation etoh use liver cirrhosis Problem List - Problems (1) Cellulitis of right leg Code(s): L03.115 - CELLULITIS OF RIGHT LOWER LIMB (2) Venous stasis ulcer Code(s): I83.009 - VARICOSE VEINS OF UNSP LOWER EXTREMITY W ULCER OF UNSP SITE L97.909 - NON-PRS CHRONIC ULC UNSP PRT OF UNSP LOW LEG W UNSP SEVERITY (3) Alcohol abuse Code(s): F10.10 - ALCOHOL ABUSE, UNCOMPLICATED (4) Liver cirrhosis Code(s): K74.60 - UNSPECIFIED CIRRHOSIS OF LIVER Qualifiers: Hepatic cirrhosis type: alcoholic cirrhosis (5) Rash Code(s): R21 - RASH AND OTHER NONSPECIFIC SKIN ERUPTION
--- NOTE | 2016-07-27 16:14 | PN ---
Teaching Attending Note Name of Resident: Alcon Tapia ATTENDING PHYSICIAN STATEMENT I saw and evaluated the patient. I reviewed the resident's note and discussed the case with the resident. I agree with the resident's findings and plan as documented. SUBJECTIVE:pain has improved , no more bleeding from the wound OBJECTIVE: Vital Signs Temperature 98.9 F 07/27/16 14:22 Pulse Rate 91 H 07/27/16 14:22 Respiratory Rate 20 07/27/16 10:00 Blood Pressure 136/76 07/27/16 14:22 O2 Sat by Pulse Oximetry (%) 96 07/27/16 09:00 ENERAL: lethargic no acute distress. HEAD:NC/AT EYES: Pupils equal, round and reactive to light, extraocular movements intact, sclera anicteric, conjunctiva clear. No lid lag. EARS, NOSE, THROAT: Dry mucous membranes. NECK: Normal range of motion, supple without lymphadenopathy, JVD, or masses. LUNGS: Breath sounds equal, clear to auscultation bilaterally. No wheezes, and no crackles. No accessory muscle use. HEART: Regular rate and rhythm, normal S1 and S2 without murmur, rub or gallop. ABDOMEN: Soft, nontender, distended, normoactive bowel sounds, no guarding, no rebound, no masses. No hepatomegaly or splenomegaly. MUSCULOSKELETAL: Normal range of motion at all joints. No bony deformities or tenderness. No CVA tenderness. UPPER EXTREMITIES: 2+ pulses, warm, well-perfused. LOWER EXTREMITIES:R leg with 3 deep ulcerations and diffuse cellulitits NEUROLOGICAL: somnolent Abnormal Lab Results 07/26/16 07/27/16 07/27/16 16:15 10:30 10:30 RBC 3.65 L Hgb 9.0 L Hct 28.1 L MCV 76.9 L RDW 18.2 H Plt Count 31 L* D Monocytes % 15.2 H INR 1.51 H Anion Gap BUN Creatinine Calcium Phosphorus Total Bilirubin AST Alkaline Phosphatase Ammonia 126.68 H Albumin 07/27/16 10:30 RBC Hgb Hct MCV RDW Plt Count Monocytes % INR Anion Gap 7 L BUN 6 L Creatinine 0.4 L Calcium 7.4 L Phosphorus 2.2 L D Total Bilirubin 2.4 H D AST 82 H Alkaline Phosphatase 179 H D Ammonia Albumin 1.9 L ASSESSMENT AND PLAN: Chronic venous stasis ulcers complicated by RLE cellulitis * Chronic ulcers previously seen by Dr. Garcia ; will consult * Reapply sterile dressing. * ID consulted * Vanco and Zosyn given in ED and will continue Hepatic Encephalopathy - alcoholic liver chirrhosis * start lactulose Alcohol Dependence and history of withdrawal seizure. * Started on Librium detox protocol . * Will monitor for sign of withdrawal and DT's * [facility] saw him 07/25/16 abd confirmed dose of 10mg PO daily of methadone Pancytopenia- secondary to liver disease * monitor CBC and for signs of bleeding
--- NOTE | 2016-07-27 16:58 | PN ---
Physical Exam: SUBJECTIVE: Patient seen and examined at bedside. no overnight events. No new complaints. more alert today but remains confused. Continued R leg pain. Denies CP, CHOWDHURY, SOB, palpitations, N/V. OBJECTIVE: Vital Signs Period Temp Pulse Resp BP Sys/Choi Pulse Ox Last 24 Hr 98.3 F-100.1 F 68-91 18-20 127-136/60-78 95-96 GENERAL:awake and alert no acute distress. HEAD:NC/AT EYES: PERRLA, sclera icteris EARS, NOSE, THROAT: Dry mucous membranes. NECK: supple with no JVD, or masses. LUNGS:CTAB. No wheezes, and no crackles. No accessory muscle use. HEART:RRR, normal S1 and S2 without murmur, rub or gallop. ABDOMEN: Soft, nontender, distended, normoactive bowel sounds, no guarding, no rebound, no masses. MUSCULOSKELETAL: Normal range of motion at all joints. No bony deformities or tenderness. No CVA tenderness. UPPER EXTREMITIES: 2+ pulses, warm, well-perfused. No cyanosis. No clubbing. No peripheral edema. LOWER EXTREMITIES:R leg with 3 deep ulcerations and diffuse cellulitits up to groin. NEUROLOGICAL: alert but confused. SKIN: diffuse macular papular rash. Laboratory Results - last 24 hr 07/26/16 07/27/16 07/27/16 16:15 10:30 10:30 WBC 4.9 RBC 3.65 L Hgb 9.0 L Hct 28.1 L MCV 76.9 L MCHC 32.1 RDW 18.2 H Plt Count 31 L* D MPV 8.3 Neutrophils % 65.7 D Lymphocytes % 15.2 D Monocytes % 15.2 H Eosinophils % 3.2 Basophils % 0.7 INR 1.51 H Sodium Potassium Chloride Carbon Dioxide Anion Gap BUN Creatinine Creat Clearance w eGFR Random Glucose Calcium Phosphorus Magnesium Total Bilirubin AST ALT Alkaline Phosphatase Ammonia 126.68 H Total Protein Albumin 07/27/16 10:30 WBC RBC Hgb Hct MCV MCHC RDW Plt Count MPV Neutrophils % Lymphocytes % Monocytes % Eosinophils % Basophils % INR Sodium 140 Potassium 3.7 Chloride 106 Carbon Dioxide 27 Anion Gap 7 L BUN 6 L Creatinine 0.4 L Creat Clearance w eGFR > 60 Random Glucose 87 D Calcium 7.4 L Phosphorus 2.2 L D Magnesium 1.8 Total Bilirubin 2.4 H D AST 82 H ALT 35 Alkaline Phosphatase 179 H D Ammonia Total Protein 7.2 Albumin 1.9 L Active Medications Generic Name Dose Route Start Last Admin Trade Name Freesperanza PRN Reason Stop Dose Admin Chlordiazepoxide HCl 25 mg 07/26/16 11:49 Librium - PO 07/29/16 11:50 Q4H PRN WITHDRAWAL(CONT SUBST) Chlordiazepoxide HCl 25 mg 07/27/16 11:00 07/27/16 12:28 Librium - PO 07/28/16 05:01 Not Given [id number] KENDRICK Chlordiazepoxide HCl 15 mg 07/28/16 11:00 Librium - PO 07/29/16 05:01 [id number] KENDRICK Folic Acid 1 mg 07/26/16 10:00 07/27/16 09:54 Folic Acid - PO 1 mg DAILY KENDRICK Administration Furosemide 40 mg 07/27/16 10:00 07/27/16 09:54 Lasix - PO 40 mg DAILY KENDRICK Administration Cefazolin Sodium/Dextrose 50 mls @ 100 mls/hr 07/26/16 18:00 07/27/16 13:24 Ancef 2 Gm Premixed Ivpb - IVPB 100 mls/hr Q8H-IV KENDRICK Administration Lactulose 20 gm 07/27/16 14:00 07/27/16 15:12 Cephulac (Oral Use) PO 20 gm TID KENDRICK Administration Methadone HCl 10 mg 07/27/16 10:00 07/27/16 09:55 Dolophine - PO 10 mg DAILY KENDRICK Administration Potassium Chloride 40 meq 07/27/16 10:00 07/27/16 09:54 K-Dur - PO 40 meq DAILY KENDRICK Administration Thiamine HCl 100 mg 07/26/16 10:00 07/27/16 09:54 Vitamin B1 - PO 100 mg DAILY KENDRICK Administration ASSESSMENT/PLAN: Problem List - Problems (1) Venous stasis ulcer Assessment/Plan: * Vascular surgery consult pending. * Wounds have been bandaged and wrapped with dry sterile dressing. * Very foul smell - No history of MRSA * ID consult appreciated. * Continue IV abx (2) Cellulitis of right leg Assessment/Plan: * Extensive cellulits of RLE improved * switched to Cefazolin * ID consulted appreciated (3) Liver cirrhosis Assessment/Plan: * LFT's AST trending down * Ammonia level increased - started on Lactulose 20mg TID * repeat labs in AM (4) Rash Assessment/Plan: * Patchy maculopapular rash * will consider Derm consult. (5) Alcohol abuse Assessment/Plan: * History of withdrawal with seizure. * Started on Librium detox protocol . * Will monitor for sign of withdrawal and DT's (6) Methadone dependence Assessment/Plan: * [facility] saw him 07/25/16 abd confirmed dose of 10mg PO daily. (7) Hyperammonemia Assessment/Plan: * Lactulose 20mg TID * repeat levels in am (8) Thrombocytopenia concurrent with and due to alcoholism Assessment/Plan: * No active bleeding * NO platelet transfusion at this time. * Will monitor Visit type - Emergency Visit Emergency Visit: Yes ED Registration Date: 07/26/16 Care time: The patient presented to the Emergency Department on the above date and was hospitalized for further evaluation of their emergent condition. - New Patient This patient is new to me today: No - Critical Care Critical Care patient: No - Discharge Referral Referred to [facility] Med P.C.: No
[2016-07-27] MEDS ORDERED: CEFAZOLIN 2 GM in DEXTROSE 5%-WATER - 100 ML IVPB SCH (18:00)
[2016-07-27] MEDS ORDERED: CEFAZOLIN 2 GM in DEXTROSE 5%-WATER - 50 ML IVPB SCH (18:00)
[2016-07-27] MEDS: CEFAZOLIN 2 GM in DEXTROSE 5%-WATER - 50 ML IVPB SCH (21:15)
[2016-07-28] MEDS: CEFAZOLIN 2 GM in DEXTROSE 5%-WATER - 50 ML IVPB SCH ×3 (01:08→17:46)
[2016-07-28] MEDS: chlordiazePOXIDE HCL 25 MG CAPSULE PO SCH (05:09)
[2016-07-28] MEDS: LACTULOSE 20 GM/30 ML UDC (FOR ORAL USE ONLY) PO SCH ×5 (05:09→21:30)
[2016-07-28 07:12] LABS: BASOPHIL 2.6 % (0-2.0); EOSINOPHIL 6.4 % (0-4.5); MCH 24.7 pg (25.7-33.7); MCHC 31.9 g/dl (32.0-35.9); MEAN CELL VOLUME 77.5 fl (80-96); MEAN PLT VOLUME 8.4 fl (7.5-11.1); NEUTROPHILS 61.2 % (42.8-82.8); WHITE BLOOD COUNT 3.3 K/mm3 (4.0-10.0)
[2016-07-28 07:45] LABS: PLATELET COUNT 26 K/MM3 (134-434)
[2016-07-28 07:49] LABS: CALCIUM 7.9 mg/dL (8.5-10.1)
[2016-07-28 07:56] LABS: ALBUMIN 1.8 g/dl (3.4-5.0); ALK PHOS 149 U/L (45-117); ANION GAP 8 (8-16); BILIRUBIN,TOTAL 2.6 mg/dL (0.2-1.0); CO2 27 mmol/L (21-32); COCKROFT - GAULT 225.03; CREATININE 0.5 mg/dL (0.7-1.3); GLUCOSE,RANDOM 87 mg/dL (74-106); SGOT/AST 66 U/L (15-37); SGPT/ALT 29 U/L (12-78); TOT PROT 6.6 g/dl (6.4-8.2)
[2016-07-28] MEDS ORDERED: METHADONE HCL 5 MG TABLET PO SCH (10:00)
[2016-07-28] MEDS: POTASSIUM CHLORIDE TABS 20 MEQ TABLET.ER (FP) PO SCH (10:08)
[2016-07-28] MEDS: METHADONE HCL 10 MG TABLET PO SCH (10:08)
[2016-07-28] MEDS: THIAMINE HCL 100 MG TABLET (FP) PO SCH (10:08)
[2016-07-28] MEDS: FOLIC ACID 1 MG TABLET (FP) PO SCH (10:08)
[2016-07-28] MEDS: FUROSEMIDE 40 MG TABLET (FP) PO SCH (10:08)
--- NOTE | 2016-07-28 12:58 | PN ---
Teaching Attending Note Name of Resident: Alcon Tapia ATTENDING PHYSICIAN STATEMENT I saw and evaluated the patient. I reviewed the resident's note and discussed the case with the resident. I agree with the resident's findings and plan as documented. SUBJECTIVE: was trying to scratch RLE wound . Denies pain Vital Signs Temperature 99.2 F 07/28/16 06:01 Pulse Rate 73 07/28/16 06:01 Respiratory Rate 20 07/28/16 06:01 Blood Pressure 125/69 07/28/16 06:01 O2 Sat by Pulse Oximetry (%) 97 07/27/16 21:00 ENERAL: lethargic no acute distress. HEAD:NC/AT EYES: Pupils equal, round and reactive to light, extraocular movements intact, sclera anicteric, conjunctiva clear. No lid lag. EARS, NOSE, THROAT: Dry mucous membranes. NECK: Normal range of motion, supple without lymphadenopathy, JVD, or masses. LUNGS: Breath sounds equal, clear to auscultation bilaterally. No wheezes, and no crackles. No accessory muscle use. HEART: Regular rate and rhythm, normal S1 and S2 without murmur, rub or gallop. ABDOMEN: Soft, nontender, distended, normoactive bowel sounds, no guarding, no rebound, no masses. No hepatomegaly or splenomegaly. MUSCULOSKELETAL: Normal range of motion at all joints. No bony deformities or tenderness. No CVA tenderness. UPPER EXTREMITIES: 2+ pulses, warm, well-perfused. LOWER EXTREMITIES:R leg with 3 deep ulcerations and diffuse cellulitits NEUROLOGICAL: somnolent Abnormal Lab Results 07/28/16 07/28/16 07/28/16 06:20 06:20 06:20 WBC 3.3 L D RBC 3.53 L Hgb 8.7 L Hct 27.3 L MCV 77.5 L MCHC 31.9 L RDW 18.0 H Plt Count 26 L* Monocytes % 15.5 H Eosinophils % 6.4 H D Basophils % 2.6 H D Potassium 3.2 L Creatinine 0.5 L D Calcium 7.9 L Total Bilirubin 2.6 H AST 66 H Alkaline Phosphatase 149 H Ammonia 89.85 H Albumin 1.8 L OBJECTIVE: ASSESSMENT AND PLAN: Chronic venous stasis ulcers complicated by RLE cellulitis * Chronic ulcers previously seen by Dr. Garcia * Reapply sterile dressing. * ID input appreciated re length of therapy * Ancef IV Hepatic Encephalopathy - alcoholic liver chirrhosis * on lactulose Alcohol Dependence and history of withdrawal seizure. * on Librium detox protocol . * Will monitor for signs of withdrawal and DT's * [facility] saw him 07/25/16 abd confirmed dose of 10mg PO daily of methadone Pancytopenia- secondary to liver disease * monitor platelets and for signs of bleeding * no transfusion at this time
[2016-07-28] MEDS: chlordiazePOXIDE 5 MG CAPSULE PO SCH ×3 (14:31→22:22)
--- NOTE | 2016-07-28 16:36 | PN ---
Progress Note (short form) - Note Progress Note: Vascular Surgery Pt well known from wound care center. Left lower ext venous stasis ulcers. Post calf ulcer with extensive slough. Leg is swollen and weeping. Will start santyl and wrap with tesfaye for compression. Might need debridment. Pt is non compliant. Sen Garcia DO
--- NOTE | 2016-07-28 17:48 | PN ---
Physical Exam: SUBJECTIVE: Patient seen and examined at bedside. No overnight events. No new complaints. Less confused and more alert. Only 1 loose BM in 24hrs. Denies CP,CHOWDHURY , SOB, abd.pain, N/V. OBJECTIVE: Vital Signs Period Temp Pulse Resp BP Sys/Choi Pulse Ox Last 24 Hr 98.7 F-99.2 F 73-76 18-20 98-125/60-69 97 GENERAL:awake and mildly confused. NAD HEAD:NC/AT EYES: PERRLA, sclera icteris EARS, NOSE, THROAT: Dry mucous membranes. NECK: supple with no JVD, or masses. LUNGS:CTAB. No wheezes, and no crackles. No accessory muscle use. HEART:RRR, normal S1 and S2 without murmur, rub or gallop. ABDOMEN: Soft, nontender, distended, normoactive bowel sounds, no guarding, no rebound, no masses. MUSCULOSKELETAL: Normal range of motion at all joints. No bony deformities or tenderness. No CVA tenderness. UPPER EXTREMITIES: 2+ pulses, warm, well-perfused. No cyanosis. No clubbing. No peripheral edema. LOWER EXTREMITIES:R leg with 3 deep ulcerations and cellulitits has improved significantly . NEUROLOGICAL: alert but confused. SKIN: diffuse macular papular rash. Laboratory Results - last 24 hr 07/28/16 07/28/16 07/28/16 06:20 06:20 06:20 WBC 3.3 L D RBC 3.53 L Hgb 8.7 L Hct 27.3 L MCV 77.5 L MCHC 31.9 L RDW 18.0 H Plt Count 26 L* MPV 8.4 Neutrophils % 61.2 Lymphocytes % 14.3 Monocytes % 15.5 H Eosinophils % 6.4 H D Basophils % 2.6 H D Sodium 139 Potassium 3.2 L Chloride 104 Carbon Dioxide 27 Anion Gap 8 BUN 7 Creatinine 0.5 L D Creat Clearance w eGFR > 60 Random Glucose 87 Calcium 7.9 L Total Bilirubin 2.6 H AST 66 H ALT 29 Alkaline Phosphatase 149 H Ammonia 89.85 H Total Protein 6.6 Albumin 1.8 L Active Medications Generic Name Dose Route Start Last Admin Trade Name Freq PRN Reason Stop Dose Admin Chlordiazepoxide HCl 25 mg 07/26/16 11:49 Librium - PO 07/29/16 11:50 Q4H PRN WITHDRAWAL(CONT SUBST) Chlordiazepoxide HCl 15 mg 07/28/16 11:00 07/28/16 17:11 Librium - PO 07/29/16 05:01 10 mg [id number] KENDRICK Administration Collagenase 1 applic 07/28/16 16:45 Santyl - TP DAILY KENDRICK Folic Acid 1 mg 07/26/16 10:00 07/28/16 10:08 Folic Acid - PO 1 mg DAILY KENDRICK Administration Furosemide 40 mg 07/27/16 10:00 07/28/16 10:08 Lasix - PO 40 mg DAILY KENDRICK Administration Cefazolin Sodium 2 gm/ 50 mls @ 100 mls/hr 07/27/16 20:15 07/28/16 10:07 Dextrose IVPB 100 mls/hr Q8H-IV KENDRICK Administration Lactulose 20 gm 07/28/16 18:00 07/28/16 17:12 Cephulac (Oral Use) PO 20 gm QID KENDRICK Administration Methadone HCl 10 mg 07/27/16 10:00 07/28/16 10:08 Dolophine - PO 10 mg DAILY KENDRICK Administration Potassium Chloride 40 meq 07/27/16 10:00 07/28/16 10:08 K-Dur - PO 40 meq DAILY KENDRICK Administration Thiamine HCl 100 mg 07/26/16 10:00 07/28/16 10:08 Vitamin B1 - PO 100 mg DAILY KENDRICK Administration Microbiology 07/26/16 06:06 Gram Stain - Final Skin - Cellulitis Wound Culture - Preliminary Non Lactose Fermenting Gnb Lactose Fermenting Neg Bacilli Staphylococcus Coagulase Neg Pending Organism 07/26/16 06:06 Blood Culture - Preliminary Blood - Peripheral Venous NO GROWTH OBTAINED AFTER 48 HOURS, INCUBATION TO CONTINUE FOR 3 DAYS. 07/26/16 06:06 Blood Culture - Preliminary Blood - Peripheral Venous NO GROWTH OBTAINED AFTER 48 HOURS, INCUBATION TO CONTINUE FOR 3 DAYS. ASSESSMENT/PLAN: 45 yo M with h/o of HCV, cirrhosis, varices, EtOH abuse admitted for cellulitis and bleeding leg ulcers. Problem List - Problems (1) Venous stasis ulcer Assessment/Plan: * Vascular surgery consult appreciated. * start santyl and wrap with tesfaye for compression * Might need debridment. * Very foul smell - No history of MRSA * ID consult appreciated. * Continue IV abx (2) Cellulitis of right leg Assessment/Plan: * cellulits of RLE improved * Continue Cefazolin * Cultures as above. * ID consulted appreciated (3) Liver cirrhosis Assessment/Plan: * LFT's AST trending down * Ammonia trending down - Increase Lactulose 20mg QID * repeat labs in AM (4) Rash Assessment/Plan: * Patchy maculopapular rash * will consider Derm consult. (5) Alcohol abuse Assessment/Plan: * History of withdrawal with seizure. * Started on Librium detox protocol . * Will monitor for sign of withdrawal and DT's (6) Methadone dependence Assessment/Plan: * [facility] saw him 07/25/16 abd confirmed dose of 10mg PO daily. (7) Hyperammonemia Assessment/Plan: * increased Lactulose 20mg QID - only one loose BM in 24hrs. * repeat levels in am (8) Thrombocytopenia concurrent with and due to alcoholism Assessment/Plan: * No active bleeding * NO platelet transfusion at this time. * Will monitor Visit type - Emergency Visit Emergency Visit: Yes ED Registration Date: 07/26/16 Care time: The patient presented to the Emergency Department on the above date and was hospitalized for further evaluation of their emergent condition. - New Patient This patient is new to me today: No - Critical Care Critical Care patient: No - Discharge Referral Referred to [facility] Med P.C.: No
[2016-07-28] MEDS: COLLAGENASE CLOSTRIDIUM HIST. 30 GRAMS TUBE TP SCH (18:07)
[2016-07-28] MEDS ORDERED: PT OWN MED DRAWER 7, Y5N ONE (21:12)
[2016-07-29] MEDS: CEFAZOLIN 2 GM in DEXTROSE 5%-WATER - 50 ML IVPB SCH ×2 (01:59→09:33)
[2016-07-29] MEDS: chlordiazePOXIDE 5 MG CAPSULE PO SCH (06:35)
[2016-07-29 08:20] LABS: BASOPHIL 2.8 % (0-2.0); EOSINOPHIL 6.8 % (0-4.5); MCH 24.8 pg (25.7-33.7); MCHC 31.9 g/dl (32.0-35.9); MEAN CELL VOLUME 77.7 fl (80-96); MEAN PLT VOLUME 8.3 fl (7.5-11.1); PLATELET COUNT 39 K/MM3 (134-434); RDW 18.7 % (11.9-15.9); WHITE BLOOD COUNT 3.3 K/mm3 (4.0-10.0)
[2016-07-29 08:56] LABS: ALBUMIN 1.8 g/dl (3.4-5.0); ANION GAP 10 (8-16); CALCIUM 7.6 mg/dL (8.5-10.1); CO2 25 mmol/L (21-32); CREATININE 0.4 mg/dL (0.7-1.3); GLUCOSE,RANDOM 71 mg/dL (74-106); SGOT/AST 69 U/L (15-37); SGPT/ALT 29 U/L (12-78); TOT PROT 6.6 g/dl (6.4-8.2)
[2016-07-29 08:57] LABS: ALK PHOS 153 U/L (45-117)
[2016-07-29] MEDS ORDERED: PT OWN MED DRAWER 7, Y5N ONE (09:32)
[2016-07-29] MEDS: LACTULOSE 20 GM/30 ML UDC (FOR ORAL USE ONLY) PO SCH (09:33)
[2016-07-29] MEDS: METHADONE HCL 10 MG TABLET PO SCH (09:34)
[2016-07-29] MEDS: POTASSIUM CHLORIDE TABS 20 MEQ TABLET.ER (FP) PO SCH (09:35)
[2016-07-29] MEDS: FOLIC ACID 1 MG TABLET (FP) PO SCH (09:35)
[2016-07-29] MEDS: FUROSEMIDE 40 MG TABLET (FP) PO SCH (09:36)
[2016-07-29] MEDS: THIAMINE HCL 100 MG TABLET (FP) PO SCH (09:36)
[2016-07-29] MEDS: COLLAGENASE CLOSTRIDIUM HIST. 30 GRAMS TUBE TP SCH (09:36)
[2016-07-29 13:16] VITALS: BP 118/60; PULSE 83; TEMP 99.3
--- NOTE | 2016-07-29 13:23 | CONSULT ---
Consult Detox [facility] Reason for Current Admission/Consult: Opioid dependence on Agonist therapy. MDMA Referred by:: Joyce Jennings MD - History History of Present Illness: 46 y/o man on OTP has a positive drug screen for MDMA.He was brought to ED because of bleeding from wound on legs. - History Source History Provided By: Patient, Medical Record Limitations to Obtaining History: No Limitations - Alcohol/Substance Use Hx Alcohol Use: Yes - Past Medical History Gastrointestinal: Yes: Ascites, Esophageal Varices, Other (Hepatitis, umbilical hernia) Hepatobiliary: Yes: Cirrhosis, Hepatitis B Psych: Yes: Addictions (alchohol Current, Heroin revcovery) Rheumatology: Yes: Rheumatoid Arthritis, Other (Arthritis). No: Fibromyalgia - Past Surgical History Past Surgical History: Yes: Colectomy Assessment Plan - Diagnosis (1) Opioid dependence on agonist therapy Status: Acute
--- NOTE | 2016-07-29 14:57 | PN ---
Teaching Attending Note Name of Resident: Alcon Tapia ATTENDING PHYSICIAN STATEMENT I saw and the patient however he refused further exams and was leaving against our advice I reviewed the resident's note and discussed the case with the resident. I agree with the resident's findings and plan as documented. Patient left against medical advice. Risks of worsening infection and bleeding were explained. IV line was removed . Chronic venous stasis ulcers complicated by RLE cellulitis Hepatic Encephalopathy - alcoholic liver chirrhosis , improved , alert and oriented Alcohol Dependence and history of withdrawal seizure. * Pancytopenia- secondary to liver disease
--- NOTE | 2016-07-29 15:48 | DS ---
Physical Exam: SUBJECTIVE: Patient seen and examined at bedside. No overnight events. No new complaints. Alert and oriented. Angry and want to leave. Denies CP,CHOWDHURY, SOB, Abd. pain, N/V. OBJECTIVE: Vital Signs Period Temp Pulse Resp BP Sys/Choi Pulse Ox Last 24 Hr 98.8 F-99.6 F 74-88 18-20 100-135/58-85 95-97 PHYSICAL EXAM GENERAL:AAOx3, NAD, agitated. HEAD:NC/AT EYES: PERRLA, sclera icteris EARS, NOSE, THROAT: Dry mucous membranes. NECK: supple with no JVD, or masses. LUNGS:CTAB. No wheezes, and no crackles. No accessory muscle use. HEART:RRR, normal S1 and S2 without murmur, rub or gallop. ABDOMEN: Soft, nontender, mildly distended, normoactive bowel sounds, no guarding, no rebound, no masses. MUSCULOSKELETAL: Normal range of motion at all joints. No bony deformities or tenderness. No CVA tenderness. UPPER EXTREMITIES: 2+ pulses, warm, well-perfused. No cyanosis. No clubbing. No peripheral edema. LOWER EXTREMITIES:R leg with 3 deep ulcerations still draining but cellulitits has improved significantly . NEUROLOGICAL: Alert and agitated. SKIN: diffuse macular papular rash. LABS Laboratory Results - last 24 hr 07/26/16 07/29/16 07/29/16 08:00 07:35 07:35 WBC 3.3 L RBC 3.52 L Hgb 8.7 L Hct 27.3 L MCV 77.7 L MCHC 31.9 L RDW 18.7 H Plt Count 39 L D MPV 8.3 Neutrophils % 52.0 Lymphocytes % 20.3 D Monocytes % 18.1 H Eosinophils % 6.8 H Basophils % 2.8 H Sodium 139 Potassium 3.4 L Chloride 104 Carbon Dioxide 25 Anion Gap 10 BUN 8 Creatinine 0.4 L Creat Clearance w eGFR > 60 Random Glucose 71 L Calcium 7.6 L Total Bilirubin 2.0 H D AST 69 H ALT 29 Alkaline Phosphatase 153 H Ammonia Total Protein 6.6 Albumin 1.8 L MDMA & Metabolite Positive H 07/29/16 07:35 WBC RBC Hgb Hct MCV MCHC RDW Plt Count MPV Neutrophils % Lymphocytes % Monocytes % Eosinophils % Basophils % Sodium Potassium Chloride Carbon Dioxide Anion Gap BUN Creatinine Creat Clearance w eGFR Random Glucose Calcium Total Bilirubin AST ALT Alkaline Phosphatase Ammonia 92.87 H Total Protein Albumin MDMA & Metabolite HOSPITAL COURSE: 45 yo M with h/o of HCV, cirrhosis, varices, EtOH abuse admitted for cellulitis and bleeding leg ulcers. For his leg ulcers daily wound care and IV antibiotic started. Vascular surgeon saw him and advised wound care with santyl and compression dressing. Possible dibridement but patient left AMA. He was started on IV antibiotic for his cellulitis and erythema improved. A prescription sent to his pharmacy for continued antibiotics for 7 days. His liver enzymes were trending down. He refused all medications and began to become severely agitated. He was awake and fully oriented. Patient adamantly refuses hospitalization and wants to leave AMA. I explained to patient that AMA is dangerous and can lead to worsening of condition, permanent disability, and even . I used lay terminology. I answered all questions. It is clear to me that he understands the risk and benefits of continuous hospital stay and leaving AMA. He has capacity to make his own decisions, He agrees to follow up with PMD tomorrow and return to ED if symptoms worsen. Date of Admission:07/26/16 Date of Discharge: 07/29/16 Minutes to complete discharge: 35 Discharge Summary Reason For Visit: CELLULITIS OF RIGHT LEG Current Active Problems Hypokalemia (Acute) Liver failure (Acute) Condition: Poor - Instructions Diet, Activity, Other Instructions: Patient adamantly refuses hospitalization and wants to leave AMA. I explained to patient that AMA is dangerous and can lead to worsening of condition, permanent disability, and even . I used lay terminology. I answered all questions. It is clear to me that he understands the risk and benefits of continuous hospital stay and leaving AMA. He has capacity to make his own decisions, He agrees to follow up with PMD tomorrow and return to ED if symptoms worsen. -I will send antibiotics to his pharmacy for him to continue. -Advised he needs to follow up with wound care. - Disposition: AGAINST MEDICAL ADVICE - Home Medications Comprehensive Discharge Medication List: Ambulatory Orders Furosemide [Lasix] 40 mg PO DAILY 07/26/16 Methadone [Dolophine -] 10 mg PO DAILY 07/27/16 Collagenase Clostridium Hist. [Santyl -] 1 applic TP DAILY #1 tube 07/29/16 Levofloxacin [Levaquin] 500 mg PO DAILY #7 tablet 07/29/16 Problem List - Problems (1) Venous stasis ulcer (2) Cellulitis of right leg (3) Liver cirrhosis (4) Rash (5) Alcohol abuse (6) Methadone dependence (7) Hyperammonemia (8) Thrombocytopenia concurrent with and due to alcoholism This patient is new to me today: No Emergency Visit: Yes ED Registration Date: 07/26/16 Care time: The patient presented to the Emergency Department on the above date and was hospitalized for further evaluation of their emergent condition. Critical Care patient: No - Discharge Referral Referred to [facility] Med P.C.: No
[2016-07-30] MEDS ORDERED: METHADONE HCL 10 MG TABLET PO SCH (10:00)
[2016-07-31] MEDS ORDERED: METHADONE HCL 5 MG TABLET PO SCH (06:00)
== END 2016-07-29 14:30 | disposition left against medical advice (07) | DRG 380 ==
LOC: JER 05:15 → JERBED 06:57 → J6S 17:58
PROVIDERS: ADMIT Internal Medicine; ATTEND Internal Medicine
DX: L97.819 Non-pressure chronic ulcer of other part of right lower leg with unspecified severity (principal); D61.818 Other pancytopenia; E72.20 Disorder of urea cycle metabolism, unspecified; K70.30 Alcoholic cirrhosis of liver without ascites; D69.6 Thrombocytopenia, unspecified; F11.20 Opioid dependence, uncomplicated; K72.90 Hepatic failure, unspecified without coma; L03.115 Cellulitis of right lower limb; I87.2 Venous insufficiency (chronic) (peripheral); R21 Rash and other nonspecific skin eruption; B19.20 Unspecified viral hepatitis C without hepatic coma; E87.6 Hypokalemia; F10.20 Alcohol dependence, uncomplicated
CPT/HCPCS: 36415; 80053; 80307; 82140; 82550; 82553; 83605; 83735; 84100; 85025; 85610; 85730; 86850; 86900; 86901; 87040; 87070; 87186; 87205; 93970-TC; 97116-GP; 97161-GP; 99285-25; G0480

== ENCOUNTER 2016-08-29 00:33 | Inpatient (IN) | payer OTHER ==
[2016-08-29] MEDS ORDERED: SODIUM CHLORIDE 0.9% 1000 ML INFUS.BAG IV PRN (01:31)
[2016-08-29] MEDS ORDERED: VANCOMYCIN 1,000 MG in DEXTROSE 5%-WATER - 250 ML IVPB ONE (01:34)
[2016-08-29] MEDS ORDERED: PIPERACILLIN/TAZOB 3.375 GM/50 ML PRE-DOCKED IVPB ONE (01:36)
[2016-08-29] MEDS ORDERED: SODIUM CHLORIDE 0.9% 1000 ML INFUS.BAG IV ONE (01:38)
[2016-08-29] MEDS ORDERED: morphine CARPU-JECT 4 MG/1 ML DISP.SYRIN IVPUSH ONE (02:19)
--- NOTE | 2016-08-29 02:22 | PDOC ---
Attending Attestation - Resident Resident Name: AndreslevynickZhao - ED Attending Attestation I have performed the following: I have examined & evaluated the patient, The case was reviewed & discussed with the resident, I agree w/resident's findings & plan, Exceptions are as noted - HPI HPI: 08/29/16 02:20 46 year old male with past medical history of liver cirrhosis, alcohol abuse, polysubstance abuse, chronic cellulitis of the right lower extremity presents with right lotion ulcer and cellulitis. The patient was here in July 2016 where he is advised to get debridement and treatment for cellulitis. He had left AGAINST MEDICAL ADVICE at that time. Denies fevers or chills. Stated the last 2 weeks that he's been having intermittent tactile fevers and worsening right lower extremity cellulitis and right calf ulcer. - Physicial Exam PE: 08/29/16 02:20 GENERAL: Awake, alert, and fully oriented, in no acute distress. HEAD: No signs of trauma EYES: PERRLA, EOMI, sclera anicteric, conjunctiva clear ENT: Auricles normal inspection, hearing grossly normal, nares patent, oropharynx clear without exudates. NECK: Normal ROM, supple, no lymphadenopathy, JVD, or masses LUNGS: Breath sounds equal, clear to auscultation bilaterally. No wheezes, and no crackles HEART: Regular rate and rhythm, normal S1 and S2, no murmurs, rubs or gallops ABDOMEN: Soft, nontender, normoactive bowel sounds. No guarding, no rebound. No masses EXTREMITIES: 2+ pitting edema b/l. ~5x5 cm R calf ulcer with large surrounding erythema and induration, TTP. NEUROLOGICAL: Cranial nerves II through XII grossly intact. Normal speech, normal gait SKIN: Warm, Dry, normal turgor, no rashes or lesions noted. - Medical Decision Making 08/29/16 02:21 This is an cirrhosis patient with a chronic now acute right lower showing cellulitis and wound. Adult sepsis protocol initiated. Empiric vancomycin and zosyn was ordered. Patient should be admitted to the hospital for further management and disposition. Heart Score/ECG Review #1 ECG reviewed & interpreted by me at: 02:15 08/29/16 02:22 NSR 90, QTC 504 msec, no std/angela, normal axis
[2016-08-29 02:48] LABS: BASOPHIL 0.6 % (0-2.0); EOSINOPHIL 3.5 % (0-4.5); MCH 22.2 pg (25.7-33.7); MCHC 31.1 g/dl (32.0-35.9); MEAN CELL VOLUME 71.5 fl (80-96); NEUTROPHILS 66.4 % (42.8-82.8); RDW 18.3 % (11.9-15.9); WHITE BLOOD COUNT 5.6 K/mm3 (4.0-10.0)
--- NOTE | 2016-08-29 02:51 | PDOC ---
History of Present Illness - General Chief Complaint: Wound Infection Stated Complaint: LEG PAIN Time Seen by Provider: 08/29/16 01:02 History Source: Patient Exam Limitations: Clinical Condition - History of Present Illness Initial Comments: 08/29/16 02:46 The patient is a 46M with a PMH of HCV, cirrhosis, varices, EtOH abuse, opiate abuse, and chronic leg edema who presents with worsening cellulitis of his R calf. He was admitted in July 2016 for IV treatment of his cellulitis but left AMA. The patient states that he follows with wound clinic but changes his bandages himself. The patient states that tonight the pain is not tolerable. Patient states that he has had fevers on and off for the past 2 weeks. PSH: non contributory Social: Former IVDU Allergies: NKDA Past History - Past Medical History Allergies/Adverse Reactions: Allergies Allergy/AdvReac Type Severity Reaction Status Date / Time No Known Allergies Allergy Verified 08/29/16 01:45 Home Medications: Ambulatory Orders Furosemide [Lasix] 40 mg PO DAILY 07/26/16 Methadone [Dolophine -] 10 mg PO DAILY 07/27/16 Collagenase Clostridium Hist. [Santyl -] 1 applic TP DAILY #1 tube 07/29/16 Levofloxacin [Levaquin] 500 mg PO DAILY #7 tablet 07/29/16 Oxycodone HCl/Acetaminophen [Percocet 5-325 mg Tablet] 1 tab PO Q6H #100 tablet MDD 4 08/19/16 Anemia: No Asthma: No Cancer: No Cardiac Disorders: No CVA: No COPD: No CHF: No Dementia: No Diabetes: No GI Disorders: Yes (GI BLEED) Disorders: No HTN: Yes Hypercholesterolemia: No Liver Disease: Yes (HEPATITS C) Seizures: No Thyroid Disease: No - Surgical History Abdominal Surgery: Yes (GI BLEED/HERNIA) Appendectomy: No Cardiac Surgery: No Cholecystectomy: No Lung Surgery: No Neurologic Surgery: Yes Orthopedic Surgery: No - Immunization History Immunization Up to Date: No - Psycho/Social/Smoking Cessation Hx Anxiety: No Suicidal Ideation: No Smoking Status: Yes Smoking History: Never smoked Have you smoked in the past 12 months: Yes Number of Cigarettes Smoked Daily: 3 If you are a former smoker, when did you quit?: 06/11/2013 Information on smoking cessation initiated: No 'Breaking Loose' booklet given: 07/26/16 Hx Alcohol Use: No Drug/Substance Use Hx: No Substance Use Type: Opiates Hx Substance Use Treatment: Yes (MMTP) Review of Systems - Review of Systems Constitutional: Yes: Fever Respiratory: No: Shortness of Breath Cardiac (ROS): No: Chest Pain ABD/GI: Yes: Abdominal Distended Integumentary: Yes: Lesions, Other (R calf swelling, erythema, ulcerations) Neurological: No: Numbness, Paresthesia, Weakness *Physical Exam - Vital Signs Last Vital Signs Temp Pulse Resp BP Pulse Ox 97.9 F 93 H 14 118/87 97 08/29/16 01:46 08/29/16 01:46 08/29/16 01:46 08/29/16 01:46 08/29/16 01:46 - Physical Exam General Appearance: Yes: Mild Distress HEENT: positive: Normal Voice Neck: positive: Trachea midline Respiratory/Chest: positive: Lungs Clear, Normal Breath Sounds. negative: Respiratory Distress Cardiovascular: positive: Regular Rhythm, Regular Rate, S1, S2 Vascular Pulses: Dorsalis-Pedis (R): 2+ Gastrointestinal/Abdominal: positive: Soft, Distended. negative: Tender, Guarding, Rebound Integumentary: positive: Moist (R calf), Swelling (b/l lower extremities), Other (Erythematous and swollen from knee to ankle. 5x5 ulceration on posterior calf. Weeping ulcer. Tender to palpation) Neurologic: positive: Other (Neurovascularly intact in R foot.) Heart Score/ECG Review - ST and T Prolonged Q-T Interval: Yes - ECG Impressions Normal ECG: Yes ED Treatment Course - LABORATORY CBC & Chemistry Diagram: 08/29/16 02:30 08/29/16 02:30 - RADIOLOGY Radiology Studies Ordered: Category Date Time Status CHEST X-RAY PORTABLE* [RAD] Stat Radiology 08/29/16 01:32 Taken Medical Decision Making - Medical Decision Making 08/29/16 02:57 Patient is a 46M with a PMH of chronic leg edema and previous cellulitis who left AMA last month. He is now present with worsening symptoms. He has agreed to stay the length of his hospital course until he is deemed clinically recovering from his cellulitis. Sepsis protocol has been ordered and the patient 's pain is being addressed. I will update the patient as labs return. EKG shows prolonged QT. *DC/Admit/Observation/Transfer Diagnosis at time of Disposition: Cellulitis Qualifiers: Site of cellulitis: extremity Site of cellulitis of extremity: lower extremity Laterality: right Qualified Code(s): L03.115 - Cellulitis of right lower limb - Discharge Dispostion Condition at time of disposition: Stable Admit: Yes - Referrals Referrals: Garcia Arteaga [Primary Care Provider] - - Transfer to Acute Care Facility Accepting Physician:: Willie - Attestations Physician Attestion: 08/29/16 04:48 I, Dr. Zhao Hdz, attest that this document has been prepared under my direction and personally reviewed by me in its entirety. I further attest, that it accurately reflects all work, treatment, procedures and medical decision -making performed by me.
[2016-08-29] MEDS ORDERED: PIPERACILLIN/TAZOB 4.5 GM/100 ML PRE-DOCKED IVPB ONE (02:56)
[2016-08-29 03:06] LABS: INR 1.55 (0.82-1.09); PROTHROMBIN TIME (PATIENT) 17.2 SEC (9.98-11.88)
[2016-08-29 03:08] LABS: ACTIVATED PTT 39.7 SECONDS (26.9-34.4)
[2016-08-29 03:16] LABS: ALBUMIN 1.8 g/dl (3.4-5.0); ANION GAP 8 (8-16); CALCIUM 7.6 mg/dL (8.5-10.1); CO2 28 mmol/L (21-32); CREATININE 0.4 mg/dL (0.7-1.3); GLUCOSE,RANDOM 80 mg/dL (74-106); SGOT/AST 77 U/L (15-37); SGPT/ALT 37 U/L (12-78); TOT PROT 6.9 g/dl (6.4-8.2)
[2016-08-29 03:18] LABS: ALK PHOS 194 U/L (45-117); TROPONIN I < 0.02 ng/ml (0.00-0.05)
[2016-08-29 04:02] LABS: MEAN PLT VOLUME 8.6 fl (7.5-11.1); PLATELET COUNT 72 K/MM3 (134-434)
--- NOTE | 2016-08-29 05:35 | HP ---
CHIEF COMPLAINT: LEG WOUND PCP: Garcia Arteaga NP, Vascular: Coty Garcia HISTORY OF PRESENT ILLNESS: This is a 46 year old male with a past medical history of cirrhosis, ETOH, varices, Hep C, chronic wound to RLE who presented to the ED with pain to RLE and non healing wound. Pt reports redness and swelling increasing. He states that he is followed by wound care here and last visit was about 2 weeks ago. He states that he changes dressing regularly but dressing does not look as if it has been changed in several days. Pt reports pain increasing to leg. ER course was notable for: (1) WBC 5.6 (2) Lactic acid 2.2 Recent Travel: pt denies PAST MEDICAL HISTORY: Hep C cirrhosis varices EtOH SBO PAST SURGICAL HISTORY: partial SB resection facial trauma-fx orbit s/p ORIF with metal plate Social History: Smoking: "once in a while" - not daily Alcohol: none x 2 days, report daily drinking prior, a "few beers" Drugs: pt denies current use. Recent utox + MDMA, past h/o heroin use Allergies No Known Allergies Allergy (Verified 08/29/16 01:45) HOME MEDICATIONS: 3 Medication Instructions Recorded Furosemide [Lasix] 40 mg PO DAILY 07/26/16 Oxycodone HCl/Acetaminophen 1 tab PO Q6H #100 tablet MDD 4 08/19/16 [Percocet 5-325 mg Tablet] REVIEW OF SYSTEMS CONSTITUTIONAL: Absent: fever, chills, diaphoresis, generalized weakness, malaise, loss of appetite, weight change HEENT: Absent: rhinorrhea, nasal congestion, throat pain, throat swelling, difficulty swallowing, mouth swelling, ear pain, eye pain, visual changes CARDIOVASCULAR: Absent: chest pain, syncope, palpitations, irregular heart rate, lightheadedness , peripheral edema RESPIRATORY: Absent: cough, shortness of breath, dyspnea with exertion, orthopnea, wheezing, stridor, hemoptysis GASTROINTESTINAL: Absent: abdominal pain, abdominal distension, nausea, vomiting, diarrhea, constipation, melena, hematochezia GENITOURINARY: Absent: dysuria, frequency, urgency, hesitancy, hematuria, flank pain, genital pain MUSCULOSKELETAL: Absent: myalgia, arthralgia, joint swelling, back pain, neck pain SKIN: Present: wound RLE w/ pain Absent: rash, itching, pallor HEMATOLOGIC/IMMUNOLOGIC: Absent: easy bleeding, easy bruising, lymphadenopathy, frequent infections ENDOCRINE: Absent: unexplained weight gain, unexplained weight loss, heat intolerance, cold intolerance NEUROLOGIC: Absent: headache, focal weakness or paresthesias, dizziness, unsteady gait, seizure, mental status changes, bladder or bowel incontinence PSYCHIATRIC: Absent: anxiety, depression, suicidal or homicidal ideation, hallucinations. PHYSICAL EXAMINATION Vital Signs - 24 hr 3 08/29/16 01:46 Temperature 97.9 F Pulse Rate 93 H Respiratory 14 Rate Blood Pressure 118/87 O2 Sat by Pulse 97 Oximetry (%) GENERAL: Awake, alert, and fully oriented, in no acute distress. HEAD: Normal with no signs of trauma. EYES: Pupils equal, round and reactive to light, extraocular movements intact, sclera icteric, conjunctiva clear. No lid lag. EARS, NOSE, THROAT: Ears normal, nares patent, oropharynx clear without exudates. Moist mucous membranes. NECK: Normal range of motion, supple without lymphadenopathy, JVD, or masses. LUNGS: Breath sounds equal, clear to auscultation bilaterally. No wheezes, and no crackles. No accessory muscle use. HEART: Regular rate and rhythm, normal S1 and S2 without murmur, rub or gallop. ABDOMEN: Soft, nontender, not distended, normoactive bowel sounds, no guarding, no rebound, no masses. No hepatomegaly or splenomegaly. + mild ascites MUSCULOSKELETAL: Normal range of motion at all joints. No bony deformities or tenderness. No CVA tenderness. UPPER EXTREMITIES: 2+ pulses, warm, well-perfused. No cyanosis. No clubbing. No peripheral edema. LOWER EXTREMITIES: 2+ pulses, warm. LLE 1+ edema, hypertrophic skin to lower aspect, no erythema. RLE 2-3+ edema, Excoriated beefy red lower aspect circumferentially with open wound to posterolateral aspect: 7.6cm x 5.5cm x 0.3cm. wound bed pink with slough, dc brown, foul odor. NEUROLOGICAL: Cranial nerves II-XII intact. Normal speech. Normal gait. resting tremor of upper extremities PSYCHIATRIC: Cooperative. Good eye contact. Appropriate mood and affect. SKIN: Warm, dry, normal turgor, no rashes or lesions noted, normal capillary refill. Laboratory Results - last 24 hr 3 0708/29/16 08/29/16 02:30 02:30 02:30 WBC 5.6 D RBC 3.83 L Hgb 8.5 L Hct 27.4 L MCV 71.5 L MCH 22.2 L MCHC 31.1 L RDW 18.3 H Plt Count 72 L D MPV 8.6 Neutrophils % 66.4 D Lymphocytes % 16.5 Monocytes % 13.0 H Eosinophils % 3.5 Basophils % 0.6 Differential Comment Slide scanned Platelet Comment No clumping noted INR 1.55 H PTT (Actin FS) 39.7 H Sodium 141 Potassium 3.6 Chloride 105 Carbon Dioxide 28 Anion Gap 8 BUN 4 L D Creatinine 0.4 L Creat Clearance w eGFR > 60 Random Glucose 80 Lactic Acid 2.2 H* Calcium 7.6 L Total Bilirubin 2.0 H AST 77 H ALT 37 D Alkaline Phosphatase 194 H D Creatine Kinase 273 Creatine Kinase Index 0.7 CK-MB (CK-2) 1.959 CK-MB (CK-2) Rel Index Troponin I < 0.02 Total Protein 6.9 Albumin 1.8 L Blood Type B NEGATIVE Antibody Screen Negative CXR pending ASSESSMENT/PLAN: 46yM with PMH cirrhosis, Hep C, ETOH, varices, chronic RLE wound presented to ED for increased pain and worsening of wound. Pt is being admitted for same. RLE wound with chronic venous stasis - admitted 07/26-07/29 for same, tx with ancef with good response. Will restart same - collagenase to wound bed after NS cleanse, cover with DPD, xeroform to open excoriated skin. - vascular surgery consult - consider ID consult Lactic acidosis - received 1L bolus in ED, will repeat ETOH - librium protocol as pt is tremulous on exam and not outside window of possible DT given last drink less than 96H ago Cirrhosis - supportive care - cont lasix po - trend LFTs DVT PPX - heparin contraindicated, plt count <75, + liver disease - SCD to LLE FEN - NS @ 100cc/hr, DC if repeat lactic acid WNL Dispo: Pt currently requires inpatient management of his emergent condition. Visit type - Emergency Visit Emergency Visit: Yes ED Registration Date: 08/29/16 Care time: The patient presented to the Emergency Department on the above date and was hospitalized for further evaluation of their emergent condition. - New Patient This patient is new to me today: No Date on this admission: 08/29/16 - Critical Care Critical Care patient: No
[2016-08-29] MEDS ORDERED: chlordiazePOXIDE HCL 25 MG CAPSULE PO PRN (06:22)
[2016-08-29] MEDS: SODIUM CHLORIDE 1,000 ML IV SCH ×2 (06:48→15:21)
[2016-08-29] MEDS: CEFAZOLIN 2 GM/D5W 50 ML IVPB SCH ×2 (09:29→17:29)
[2016-08-29] MEDS: FUROSEMIDE 40 MG TABLET (FP) PO SCH (09:29)
[2016-08-29 09:30] VITALS: BMI 35.4
[2016-08-29] MEDS ORDERED: FUROSEMIDE 40 MG/4 ML INJECTABLE VIAL IVPUSH SCH (10:00)
[2016-08-29] MEDS: oxyCODONE HCL 5 MG TABLET PO PRN ×2 (12:04→22:48)
[2016-08-29] MEDS: chlordiazePOXIDE HCL 25 MG CAPSULE PO SCH ×3 (12:05→22:40)
--- NOTE | 2016-08-29 12:32 | EKG ---
Test Reason : Blood Pressure : / mmHG Vent. Rate : 090 BPM Atrial Rate : 090 BPM P-R Int : 120 ms QRS Dur : 088 ms QT Int : 412 ms P-R-T Axes : 046 009 042 degrees QTc Int : 504 ms NORMAL SINUS RHYTHM PROLONGED QT ABNORMAL ECG WHEN COMPARED WITH ECG OF 28-MAY-2016 14:44, NO SIGNIFICANT CHANGE WAS FOUND Confirmed by PAPI JOSHI MD ([id number]) on 08/29/2016 12:32:25 PM Referred By: Confirmed By:PAPI JOSHI MD
[2016-08-29] MEDS: METHADONE HCL 10 MG TABLET PO SCH (12:51)
[2016-08-29] MEDS ORDERED: ACETAMINOPHEN 325 MG TABLET (FP) PO ONE (14:31)
[2016-08-29] MEDS: COLLAGENASE CLOSTRIDIUM HIST. 30 GRAMS TUBE TP SCH (17:12)
[2016-08-29 17:22] LABS: URINE APPEARANCE CLEAR; URINE BILIRUBIN NEGATIVE (NEGATIVE); URINE BLOOD NEGATIVE (NEGATIVE); URINE COLOR LTYELLOW; URINE GLUCOSE (UA) NEGATIVE (NEGATIVE); URINE KETONE NEGATIVE (NEGATIVE); URINE LEUK ESTERASE NEGATIVE (NEGATIVE); URINE NITRITE NEGATIVE (NEGATIVE); URINE PROTEIN NEGATIVE (NEGATIVE); URINE UROBILINOGEN NEGATIVE mg/dL (0.2-1.0)
[2016-08-30] MEDS: ACETAMINOPHEN 325 MG TABLET (FP) PO PRN (00:09)
[2016-08-30] MEDS: CEFAZOLIN 2 GM/D5W 50 ML IVPB SCH ×2 (01:24→09:33)
[2016-08-30] MEDS: SODIUM CHLORIDE 1,000 ML IV SCH ×2 (02:18→05:23)
[2016-08-30] MEDS: chlordiazePOXIDE HCL 25 MG CAPSULE PO SCH ×4 (05:21→22:08)
[2016-08-30 07:25] LABS: BASOPHIL 1.3 % (0-2.0); EOSINOPHIL 3.7 % (0-4.5); MCH 22.3 pg (25.7-33.7); MCHC 31.3 g/dl (32.0-35.9); MEAN CELL VOLUME 71.2 fl (80-96); MEAN PLT VOLUME 8.2 fl (7.5-11.1); NEUTROPHILS 65.1 % (42.8-82.8); PLATELET COUNT 51 K/MM3 (134-434); RDW 18.7 % (11.9-15.9); WHITE BLOOD COUNT 4.3 K/mm3 (4.0-10.0)
[2016-08-30 07:49] LABS: ALBUMIN 1.5 g/dl (3.4-5.0); ALK PHOS 123 U/L (45-117); ANION GAP 7 (8-16); BILIRUBIN,TOTAL 2.1 mg/dL (0.2-1.0); CALCIUM 7.1 mg/dL (8.5-10.1); CO2 28 mmol/L (21-32); CREATININE 0.4 mg/dL (0.7-1.3); GLUCOSE,RANDOM 77 mg/dL (74-106); MAGNESIUM 1.6 mg/dL (1.8-2.4); PHOSPHOROUS 2.7 mg/dL (2.5-4.9); SGOT/AST 50 U/L (15-37); SGPT/ALT 25 U/L (12-78); TOT PROT 5.8 g/dl (6.4-8.2)
[2016-08-30] MEDS ORDERED: MAGNESIUM OXIDE 400 MG TABLET (FP) PO ONE (08:15)
[2016-08-30] MEDS ORDERED: POTASSIUM CHLORIDE TABS 20 MEQ TABLET.ER (FP) PO ONE (08:15)
[2016-08-30] MEDS: oxyCODONE HCL 5 MG TABLET PO PRN ×3 (08:36→22:08)
[2016-08-30] MEDS: COLLAGENASE CLOSTRIDIUM HIST. 30 GRAMS TUBE TP SCH (09:32)
[2016-08-30] MEDS: METHADONE HCL 10 MG TABLET PO SCH (09:32)
[2016-08-30] MEDS: FUROSEMIDE 40 MG TABLET (FP) PO SCH (09:33)
--- NOTE | 2016-08-30 11:06 | PN ---
Progress Note (short form) - Note Progress Note: ID Consult Dictated: Pt is 46yo M with PMHx of liver cirrhosis, esophageal varices, EtOH abuse, polysubstance abuse, chronic R lower extremity wound, and history of hep C who presents with worsening R LE wound pain and intermittent fevers. Pt had visited the ED recently in July and was advised to get debridement and tx for cellulitis ; pt ended up leaving AMA. Pt states he had taken 6 days of the abx he was given (levaquin?) he is unsure of the name. Pt is an unreliable historian. Has chills and intermittent fevers (Tmax 102.7) Denies vomiting, nausea, diarrhea, abdominal pain, or dizziness. PSHx: Partial SB resection, fractured orbit s/p ORIF. All: NKDA Blood Cx: Gram negative bacilli UA: Negative Impression/Plan: Fever and gram negative bacteremia - source? Right LE ulcer and cellulitis D/c cefazolin Start Zosyn - gram negative and pseudomonas coverage (Hx of cultures positive for pseudomonas, e. coli) Abdominal U/S - r/o intraabdominal source of bacteremia
--- NOTE | 2016-08-30 11:19 | CONSULT ---
Consult - Past Medical History Gastrointestinal: Yes: Ascites, Esophageal Varices, Other (Hepatitis, umbilical hernia) Hepatobiliary: Yes: Cirrhosis, Hepatitis B Psych: Yes: Addictions (alchohol Current, Heroin revcovery) Rheumatology: Yes: Rheumatoid Arthritis, Other (Arthritis). No: Fibromyalgia - Past Surgical History Past Surgical History: Yes: Colectomy - Alcohol/Substance Use Hx Alcohol Use: Yes Number of Drinks Daily: 3 History of Substance Use: reports: Heroin - Smoking History Smoking history: Current some day smoker Have you smoked in the past 12 months: Yes Aproximately how many cigarettes per day: 3 If you are a former smoker, when did you quit?: 06/11/2013 Home Medications - Allergies Allergies/Adverse Reactions: Allergies Allergy/AdvReac Type Severity Reaction Status Date / Time No Known Allergies Allergy Verified 08/29/16 01:45 - Home Medications Home Medications: Ambulatory Orders Furosemide [Lasix] 40 mg PO DAILY 07/26/16 Methadone [Dolophine -] 10 mg PO DAILY 07/27/16 Collagenase Clostridium Hist. [Santyl -] 1 applic TP DAILY #1 tube 07/29/16 Levofloxacin [Levaquin] 500 mg PO DAILY #7 tablet 07/29/16 Oxycodone HCl/Acetaminophen [Percocet 5-325 mg Tablet] 1 tab PO Q6H #100 tablet MDD 4 08/19/16 Physical Exam Vital Signs: Vital Signs Temperature 99 F 08/30/16 09:32 Pulse Rate 82 08/30/16 09:32 Respiratory Rate 18 08/30/16 09:32 Blood Pressure 116/68 08/30/16 09:32 O2 Sat by Pulse Oximetry (%) 99 08/29/16 06:52 Labs: CBC, BMP 08/30/16 05:35 08/30/16 05:35 Assessment/Plan Vascular Surgery 46 year old male with past medical history of liver cirrhosis, alcohol abuse, polysubstance abuse, chronic cellulitis of the right lower extremity presents with right lotion ulcer and cellulitis. The patient was here in July 2016 where he is advised to get debridement and treatment for cellulitis. He had left AGAINST MEDICAL ADVICE at that time. Denies fevers or chills. Stated the last 2 weeks that he's been having intermittent tactile fevers and worsening right lower extremity cellulitis and right calf ulcer. Well known to wound care clinic PE Head - NC/AT Lung - CTA heart - rrr abd - soft,nt,nd ext - warm, pink. RLE -- wounds, clean, pink, granulating. A/P Right lower ext wounds. Lateral bertrand 1. Santyl daily to wounds 2. Compression with tesfaye. 3. leg elevation Sen Garcia DO
[2016-08-30] MEDS: PIPERACILLIN/TAZOB 4.5 GM/100 ML PRE-DOCKED IVPB SCH ×2 (11:30→17:47)
--- NOTE | 2016-08-30 15:10 | PN ---
Progress Note (short form) - Note Progress Note: Subjective: The patient was seen and examined at the bedside, he has no complaints at this time. Tmax 102.6 Current Medications Generic Name Dose Route Start Last Admin Trade Name Freq PRN Reason Stop Dose Admin Acetaminophen 650 mg 08/29/16 23:52 08/30/16 00:09 Tylenol - PO 650 mg Q6H PRN Administration FEVER OR PAIN Chlordiazepoxide HCl 25 mg 08/29/16 06:22 Librium - PO 09/01/16 06:21 Q4H PRN WITHDRAWAL(CONT SUBST) Chlordiazepoxide HCl 25 mg 08/30/16 11:00 08/30/16 11:17 Librium - PO 08/31/16 05:01 25 mg [id number] KENDRICK Administration Chlordiazepoxide HCl 15 mg 08/31/16 11:00 Librium - PO 09/01/16 05:01 [id number] KENDRICK Collagenase 1 applic 08/29/16 10:00 08/30/16 09:32 Santyl - TP 1 applic DAILY KENDRICK Administration Furosemide 40 mg 08/29/16 10:00 08/30/16 09:33 Lasix - PO 40 mg DAILY KENDRICK Administration Sodium Chloride 1,000 mls @ 100 mls/hr 08/29/16 05:00 08/30/16 05:23 Normal Saline - IV Not Given ASDIR KENDRICK Methadone HCl 10 mg 08/29/16 12:45 08/30/16 09:32 Dolophine - PO 10 mg DAILY KENDRICK Administration Oxycodone HCl 5 mg 08/29/16 04:59 08/30/16 08:36 Roxicodone - PO 5 mg Q4H PRN Administration PAIN Piperacillin Sod/Tazobactam Sod 4.5 gm 08/30/16 11:15 08/30/16 11:30 Zosyn 4.5gm Ivpb (Pre-Docked) IVPB 4.5 gm Q8H-IV KENDRICK Administration Objective: Vital Signs Period Temp Pulse Resp BP Sys/Choi Pulse Ox Last 24 Hr 98.7 F-100.7 F 82-96 16-18 113-144/62-71 Physical Exam: Patient refused CBCD WBC 4.3 K/mm3 (4.0-10.0) 08/30/16 05:35 RBC 3.46 M/mm3 (4.00-5.60) L 08/30/16 05:35 Hgb 7.7 GM/dL (11.7-16.9) L 08/30/16 05:35 Hct 24.6 % (35.4-49) L 08/30/16 05:35 MCV 71.2 fl (80-96) L 08/30/16 05:35 MCHC 31.3 g/dl (32.0-35.9) L 08/30/16 05:35 RDW 18.7 % (11.9-15.9) H 08/30/16 05:35 Plt Count 51 K/MM3 (134-434) L D 08/30/16 05:35 MPV 8.2 fl (7.5-11.1) 08/30/16 05:35 CMP Sodium 141 mmol/L (136-145) 08/30/16 05:35 Potassium 3.1 mmol/L (3.5-5.1) L 08/30/16 05:35 Chloride 106 mmol/L (98-107) 08/30/16 05:35 Carbon Dioxide 28 mmol/L (21-32) 08/30/16 05:35 Anion Gap 7 (8-16) L 08/30/16 05:35 BUN 8 mg/dL (7-18) D 08/30/16 05:35 Creatinine 0.4 mg/dL (0.7-1.3) L 08/30/16 05:35 Creat Clearance w eGFR > 60 (>60) 08/30/16 05:35 Random Glucose 77 mg/dL (74-106) 08/30/16 05:35 Calcium 7.1 mg/dL (8.5-10.1) L 08/30/16 05:35 Total Bilirubin 2.1 mg/dL (0.2-1.0) H 08/30/16 05:35 AST 50 U/L (15-37) H D 08/30/16 05:35 ALT 25 U/L (12-78) D 08/30/16 05:35 Alkaline Phosphatase 123 U/L (45-117) H D 08/30/16 05:35 Total Protein 5.8 g/dl (6.4-8.2) L 08/30/16 05:35 Albumin 1.5 g/dl (3.4-5.0) L 08/30/16 05:35 CARDIAC ENZYMES Creatine Kinase 273 IU/L (39-308) 08/29/16 02:30 Troponin I < 0.02 ng/ml (0.00-0.05) 08/29/16 02:30 Microbiology 08/29/16 02:30 Blood - Peripheral Venous Blood Culture - Preliminary Non Lactose Fermenting Gnb 08/29/16 02:30 Blood - Peripheral Venous Blood Culture - Preliminary NO GROWTH OBTAINED AFTER 24 HOURS, INCUBATION TO CONTINUE FOR 4 DAYS. 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 Plan: 1) ID: Gram negative bacilli bacteremia, RLE cellulitis - Start Zosyn, hx of positive pseudomonas - Per ID, abdominal ultrasound to r/o intraabominal source for bacteremia - Monitor WBC - Monitor fever curve - Appreciate ID consult 2) Vascular: Chronic right lower extremity wound - Collagenase daily - Compression with tesfaye bandage - Leg elevation - Appreciate vascular surgery consult 3) GI: Liver cirrhosis - No evidence of hepatic encephalopathy, continue to monitor - Pancytopenia 2/2 liver disease - Elevated INR 2/2 liver disease 4) Psych: Acute alcohol withdrawal - Continue librium taper 5) F/E/N: - Hypokalemia: replete - Hypomagenesemia: replete - Regular diet 6) Prophylaxis: - SCDs bilaterally - No chemical DVT prophylaxis 2/2 thrombocytopenia 7) Dispo: - Requires continued inpatient care CODE STATUS: FULL CODE Visit type - Emergency Visit Emergency Visit: Yes ED Registration Date: 08/29/16 Care time: The patient presented to the Emergency Department on the above date and was hospitalized for further evaluation of their emergent condition. - New Patient This patient is new to me today: Yes Date on this admission: 08/30/16 - Critical Care Critical Care patient: No
--- NOTE | 2016-08-30 15:20 | CONS ---
INFECTIOUS DISEASE CONSULTATION DATE OF CONSULTATION: DATE OF DICTATION: 08/30/2016 REQUESTING PHYSICIAN: The hospitalist service. HISTORY OF PRESENT ILLNESS: This is a 46-year-old man who I saw last admission in July when he was admitted with an ulcer on his leg that was profusely bleeding. He was noted to have associated cellulitis and admitted. He had recently been admitted at that point to [facility]. He has a known ulcer on that leg that he has had he says for at least 1 year. He left on the last admission AMA. He now comes back with history of intermittent fever. Overnight, he had fever as high as 102, and blood culture this morning, 1 of 4 bottles is growing gram-negative bacillus. Hence, we were asked to see him. He denies any abdominal complaints. He denies nausea, vomiting. Denies cough. He is a very poor historian. He reports he had fever yesterday and prior to that, 4 days ago. In the emergency room, he stated he had 2 weeks of intermittent fever. PAST MEDICAL HISTORY: Notable for prior GI bleed, hypertension, hepatitis C. He has a history of liver cirrhosis, chronic leg edema, chronic ulcer of the right leg, esophageal varices, and polysubstance use. PAST SURGICAL HISTORY: He has had a hernia repair in the past, and he reports having had partial small-bowel resection, as well as facial trauma with a fracture to the orbits. SOCIAL HISTORY: He reports occasional beer use. He denies any current drug use, and he does not smoke regularly. ALLERGIES: He has no known drug allergies. MEDICATIONS AN OUTPATIENT: Include Lasix and Percocet. He reports he is a methadone maintenance program. REVIEW OF SYSTEMS: He reports pain at the site of his lower extremity ulcer. He is an extremely poor historian, and his answers change. He is not very reliable in his history. He was HIV tested in March of this year and is HIV negative. PHYSICAL EXAMINATION: Vital Signs: His T-max is 102.6. Current temperature is 99. Pulse is 82, blood pressure 116/68, respiratory rate is 18. HEENT: He is normocephalic. His eyes are anicteric. Neck: Supple. Lungs: Clear to auscultation. Heart: Regular rate and rhythm. Abdomen: Distended. Question ascites. It is nontender. Extremities: He has edema of both legs, left greater than right, 2+ pitting. He has an open ulcer on his right lower extremity that is probably 6 x 8 cm. It is shallow. There is some surrounding erythema. There is no noted purulence. LABORATORY DATA: Labs are notable for a white count of 4.3, hemoglobin 7.7, platelets of 51,000. His INR is 1.5. His BUN is 8 and creatinine 0.4, a total bilirubin of 2.1, and an alkaline phosphatase of 123. His albumin is 1.5. His urinalysis is negative. His urine toxicology was positive for MDMA. Blood cultures as stated; 1 bottle is growing a non-lactose furniture duster. Of note, in July when he had blood cultures, they were negative, but a culture of the wound grew a pansensitive pseudomonas, a pansensitive E. coli with coagulase-negative staphylococcus and Streptococcus viridans. He had a duplex done that was unremarkable. He had chest x-ray done that showed no evidence of active disease. In summary, this is a 46-year-old man with liver cirrhosis, both on the basis of hepatitis C and alcohol, admitted with fever, a chronic lower extremity ulcer with cellulitis and gran-negative bacteremia. Possible source of bacteremia would include the wound as he has had gram negatives colonize the wound in the past, but must evaluate him for intraabdominal processes. Would start with an abdominal sonogram. Would stop the cefazolin, start Zosyn for gram-negative and pseudomonas coverage given the prior culture results, and obtain a sonogram of the abdomen. Further recommendations to follow. [place] [id number]
[2016-08-31] MEDS: SODIUM CHLORIDE 1,000 ML IV SCH ×3 (01:12→21:40)
[2016-08-31] MEDS: PIPERACILLIN/TAZOB 4.5 GM/100 ML PRE-DOCKED IVPB SCH ×2 (01:12→11:09)
[2016-08-31] MEDS: chlordiazePOXIDE HCL 25 MG CAPSULE PO SCH (05:06)
[2016-08-31] MEDS: oxyCODONE HCL 5 MG TABLET PO PRN ×3 (05:12→21:43)
[2016-08-31 06:19] LABS: BASOPHIL 1.7 % (0-2.0); EOSINOPHIL 4.8 % (0-4.5); MCH 21.8 pg (25.7-33.7); MCHC 30.3 g/dl (32.0-35.9); MEAN PLT VOLUME 8.4 fl (7.5-11.1); NEUTROPHILS 61.3 % (42.8-82.8); PLATELET COUNT 66 K/MM3 (134-434); WHITE BLOOD COUNT 3.8 K/mm3 (4.0-10.0)
[2016-08-31 06:56] LABS: ALBUMIN 1.5 g/dl (3.4-5.0); ALK PHOS 140 U/L (45-117); ANION GAP 7 (8-16); BILIRUBIN,TOTAL 1.6 mg/dL (0.2-1.0); CALCIUM 7.3 mg/dL (8.5-10.1); CO2 26 mmol/L (21-32); CREATININE 0.5 mg/dL (0.7-1.3); GLUCOSE,RANDOM 78 mg/dL (74-106); SGOT/AST 45 U/L (15-37); SGPT/ALT 22 U/L (12-78); TOT PROT 5.8 g/dl (6.4-8.2)
[2016-08-31] MEDS ORDERED: POTASSIUM CHLORIDE TABS 20 MEQ TABLET.ER (FP) PO ONE (08:30)
[2016-08-31 09:06] LABS: MAGNESIUM 1.8 mg/dL (1.8-2.4)
[2016-08-31] MEDS: METHADONE HCL 10 MG TABLET PO SCH (09:50)
[2016-08-31] MEDS: FOLIC ACID 1 MG TABLET (FP) PO SCH (09:51)
[2016-08-31] MEDS: MULTIVITAMINS (DAILY MVI) TABLET (FP) PO SCH (09:51)
[2016-08-31] MEDS: FUROSEMIDE 40 MG TABLET (FP) PO SCH (09:51)
[2016-08-31] MEDS: THIAMINE HCL 100 MG TABLET (FP) PO SCH (09:51)
--- NOTE | 2016-08-31 09:51 | PN ---
Progress Note (short form) - Note Progress Note: Subjective: The patient was seen and examined at the bedside, he reports lower extremity pain, however is refusing an exam Current Medications Generic Name Dose Route Start Last Admin Trade Name Freq PRN Reason Stop Dose Admin Acetaminophen 650 mg 08/29/16 23:52 08/30/16 00:09 Tylenol - PO 650 mg Q6H PRN Administration FEVER OR PAIN Chlordiazepoxide HCl 25 mg 08/29/16 06:22 Librium - PO 09/01/16 06:21 Q4H PRN WITHDRAWAL(CONT SUBST) Chlordiazepoxide HCl 15 mg 08/31/16 11:00 08/31/16 11:27 Librium - PO 09/01/16 05:01 Not Given [id number] KENDRICK Collagenase 1 applic 08/29/16 10:00 08/31/16 11:11 Santyl - TP 1 applic DAILY KENDRICK Administration Folic Acid 1 mg 08/31/16 10:00 08/31/16 09:51 Folic Acid - PO 1 mg DAILY KENDRICK Administration Furosemide 40 mg 08/29/16 10:00 08/31/16 09:51 Lasix - PO 40 mg DAILY KENDRICK Administration Sodium Chloride 1,000 mls @ 100 mls/hr 08/29/16 05:00 08/31/16 05:14 Normal Saline - IV Not Given ASDIR KENDRICK Vancomycin HCl 1,250 mg/ 250 mls @ 250 mls/hr 08/31/16 16:00 Dextrose IVPB DAILY KENDRICK Protocol Methadone HCl 10 mg 08/29/16 12:45 08/31/16 09:50 Dolophine - PO 10 mg DAILY KENDRICK Administration Multivitamins/Minerals/Vitamin C 1 tab 08/31/16 10:00 08/31/16 09:51 Tab-A-Vit - PO 1 tab DAILY KENDRICK Administration Oxycodone HCl 5 mg 08/29/16 04:59 08/31/16 05:12 Roxicodone - PO 5 mg Q4H PRN Administration PAIN Thiamine HCl 100 mg 08/31/16 10:00 08/31/16 09:51 Vitamin B1 - PO 100 mg DAILY KENDRICK Administration Objective: Vital Signs Period Temp Pulse Resp BP Sys/Choi Pulse Ox Last 24 Hr 98.9 F-100.4 F 83-96 20-20 100-123/53-75 92 Physical Exam: Patient refused CBCD WBC 3.8 K/mm3 (4.0-10.0) L 08/31/16 05:32 RBC 3.45 M/mm3 (4.00-5.60) L 08/31/16 05:32 Hgb 7.5 GM/dL (11.7-16.9) L 08/31/16 05:32 Hct 24.8 % (35.4-49) L 08/31/16 05:32 MCV 72.0 fl (80-96) L 08/31/16 05:32 MCHC 30.3 g/dl (32.0-35.9) L 08/31/16 05:32 RDW 19.0 % (11.9-15.9) H 08/31/16 05:32 Plt Count 66 K/MM3 (134-434) L D 08/31/16 05:32 MPV 8.4 fl (7.5-11.1) 08/31/16 05:32 CMP Sodium 140 mmol/L (136-145) 08/31/16 05:32 Potassium 3.1 mmol/L (3.5-5.1) L 08/31/16 05:32 Chloride 107 mmol/L (98-107) 08/31/16 05:32 Carbon Dioxide 26 mmol/L (21-32) 08/31/16 05:32 Anion Gap 7 (8-16) L 08/31/16 05:32 BUN 9 mg/dL (7-18) 08/31/16 05:32 Creatinine 0.5 mg/dL (0.7-1.3) L D 08/31/16 05:32 Creat Clearance w eGFR > 60 (>60) 08/31/16 05:32 Random Glucose 78 mg/dL (74-106) 08/31/16 05:32 Calcium 7.3 mg/dL (8.5-10.1) L 08/31/16 05:32 Total Bilirubin 1.6 mg/dL (0.2-1.0) H D 08/31/16 05:32 AST 45 U/L (15-37) H 08/31/16 05:32 ALT 22 U/L (12-78) 08/31/16 05:32 Alkaline Phosphatase 140 U/L (45-117) H 08/31/16 05:32 Total Protein 5.8 g/dl (6.4-8.2) L 08/31/16 05:32 Albumin 1.5 g/dl (3.4-5.0) L 08/31/16 05:32 CARDIAC ENZYMES Creatine Kinase 273 IU/L (39-308) 08/29/16 02:30 Troponin I < 0.02 ng/ml (0.00-0.05) 08/29/16 02:30 Microbiology 08/29/16 02:30 Blood - Peripheral Venous Blood Culture - Preliminary Escherichia Vulneris Pending Organism Pending Organism#2 08/29/16 16:30 Urine - Urine Clean Catch Urine Culture - Final NO GROWTH OBTAINED 08/29/16 02:30 Blood - Peripheral Venous Blood Culture - Preliminary NO GROWTH OBTAINED AFTER 48 HOURS, INCUBATION TO CONTINUE FOR 3 DAYS. 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 Plan: 1) ID: Gram negative bacilli bacteremia, RLE cellulitis - Continue Zosyn - Per ID, abdominal ultrasound to r/o intraabominal source for bacteremia - Monitor WBC - Monitor fever curve - F/u blood cultures - Appreciate ID consult 2) Vascular: Chronic right lower extremity wound - Collagenase daily - Compression with tesfaye bandage - Leg elevation - Appreciate vascular surgery consult 3) GI: Liver cirrhosis - No evidence of hepatic encephalopathy, continue to monitor - Pancytopenia 2/2 liver disease - Elevated INR 2/2 liver disease 4) Psych: Acute alcohol withdrawal - Continue librium taper 5) F/E/N: - Hypokalemia: replete - Hypomagenesemia: replete - Regular diet 6) Prophylaxis: - SCDs bilaterally - No chemical DVT prophylaxis 2/2 thrombocytopenia 7) Dispo: - Requires continued inpatient care CODE STATUS: FULL CODE Visit type - Emergency Visit Emergency Visit: Yes ED Registration Date: 08/29/16 Care time: The patient presented to the Emergency Department on the above date and was hospitalized for further evaluation of their emergent condition. - New Patient This patient is new to me today: No - Critical Care Critical Care patient: No
[2016-08-31] MEDS: COLLAGENASE CLOSTRIDIUM HIST. 30 GRAMS TUBE TP SCH (11:11)
[2016-08-31] MEDS: chlordiazePOXIDE 5 MG CAPSULE PO SCH ×3 (11:27→22:08)
--- NOTE | 2016-08-31 16:05 | PN ---
Progress Note (short form) - Note Progress Note: some low grade overnight eating well no abdominal pain Vital Signs Period Temp Pulse Resp BP Sys/Choi Pulse Ox Last 24 Hr 98.9 F-100.4 F 83-96 20-20 100-123/53-75 92 cor-rrr lungs decreased bs at bases abd soft,nt ext +edema +erythema left leg and inner thigh open shallow ulcer LLE CBC, BMP 08/31/16 05:32 08/31/16 05:32 Microbiology 08/29/16 02:30 Blood - Peripheral Venous Blood Culture - Preliminary Escherichia Vulneris Pending Organism Pending Organism#2 08/29/16 16:30 Urine - Urine Clean Catch Urine Culture - Final NO GROWTH OBTAINED 08/29/16 02:30 Blood - Peripheral Venous Blood Culture - Preliminary NO GROWTH OBTAINED AFTER 48 HOURS, INCUBATION TO CONTINUE FOR 3 DAYS. sonogram- no GB disease, small ascites Impression/Plan: Fever and polymicrobial bacteremia- ?contaminant repeat blood cultures cefazolin/vancomycin cellulitis with venous stasis ulcer cirrhosis consider d/c IVF
[2016-08-31] MEDS: ceFAZolin 2 GRAM PREMIX BAG IVPB SCH (16:25)
[2016-08-31] MEDS: VANCOMYCIN 1,250 MG in DEXTROSE 5%-WATER - 250 ML IVPB SCH (17:34)
[2016-08-31] MEDS ORDERED: PIPERACILLIN/TAZOB 4.5 GM 4.5 GM in DEXTROSE 5%-WATER 100 ML IVPB SCH (18:00)
[2016-09-01] MEDS: ceFAZolin 2 GRAM PREMIX BAG IVPB SCH ×3 (00:06→16:25)
[2016-09-01] MEDS: ACETAMINOPHEN 325 MG TABLET (FP) PO PRN (02:00)
[2016-09-01] MEDS: oxyCODONE HCL 5 MG TABLET PO PRN ×2 (03:54→19:35)
[2016-09-01] MEDS: SODIUM CHLORIDE 1,000 ML IV SCH ×2 (05:45→14:50)
[2016-09-01] MEDS: chlordiazePOXIDE 5 MG CAPSULE PO SCH (05:46)
[2016-09-01 07:13] LABS: EOSINOPHIL 6.3 % (0-4.5); MCH 22.1 pg (25.7-33.7); MCHC 30.6 g/dl (32.0-35.9); MEAN CELL VOLUME 72.3 fl (80-96); MEAN PLT VOLUME 8.4 fl (7.5-11.1); NEUTROPHILS 51.4 % (42.8-82.8); PLATELET COUNT 65 K/MM3 (134-434); RDW 19.3 % (11.9-15.9)
[2016-09-01 07:28] LABS: ALBUMIN 1.5 g/dl (3.4-5.0); ANION GAP 7 (8-16); CALCIUM 7.2 mg/dL (8.5-10.1); CO2 26 mmol/L (21-32); CREATININE 0.5 mg/dL (0.7-1.3); GLUCOSE,RANDOM 67 mg/dL (74-106); MAGNESIUM 1.6 mg/dL (1.8-2.4); SGPT/ALT 21 U/L (12-78)
[2016-09-01 07:30] LABS: ALK PHOS 156 U/L (45-117); BILIRUBIN,TOTAL 1.3 mg/dL (0.2-1.0); SGOT/AST 50 U/L (15-37); TOT PROT 5.7 g/dl (6.4-8.2)
--- NOTE | 2016-09-01 08:25 | PN ---
Progress Note (short form) - Note Progress Note: Subjective: The patient was seen and examined at the bedside, he reports feeling "so-so" Tmax 101.4 Current Medications Generic Name Dose Route Start Last Admin Trade Name Freesperanza PRN Reason Stop Dose Admin Acetaminophen 650 mg 08/29/16 23:52 09/01/16 02:00 Tylenol - PO 650 mg Q6H PRN Administration FEVER OR PAIN Cefazolin Sodium/Dextrose 2 gm 08/31/16 16:15 09/01/16 08:23 Ancef 2 Gm Premixed Ivpb - IVPB 2 gm Q8H KENDRICK Administration Collagenase 1 applic 08/29/16 10:00 08/31/16 11:11 Santyl - TP 1 applic DAILY KENDRICK Administration Folic Acid 1 mg 08/31/16 10:00 08/31/16 09:51 Folic Acid - PO 1 mg DAILY KENDRICK Administration Furosemide 40 mg 08/29/16 10:00 08/31/16 09:51 Lasix - PO 40 mg DAILY KENDRICK Administration Sodium Chloride 1,000 mls @ 100 mls/hr 08/29/16 05:00 09/01/16 05:45 Normal Saline - IV Not Given ASDIR KENDRICK Vancomycin HCl 1,250 mg/ 250 mls @ 166.667 mls/hr 08/31/16 16:00 08/31/16 17:34 Dextrose IVPB 166.667 mls/hr DAILY KENDRICK Administration Protocol Magnesium Oxide 400 mg 09/01/16 10:00 Mag-Ox - PO 09/02/16 22:01 BID KENDRICK Methadone HCl 10 mg 08/29/16 12:45 08/31/16 09:50 Dolophine - PO 10 mg DAILY KENDRICK Administration Multivitamins/Minerals/Vitamin C 1 tab 08/31/16 10:00 08/31/16 09:51 Tab-A-Vit - PO 1 tab DAILY KENDRICK Administration Oxycodone HCl 5 mg 08/29/16 04:59 09/01/16 03:54 Roxicodone - PO 5 mg Q4H PRN Administration PAIN Potassium Chloride 40 meq 09/01/16 10:00 K-Dur - PO 09/01/16 22:01 BID KENDRICK Thiamine HCl 100 mg 08/31/16 10:00 08/31/16 09:51 Vitamin B1 - PO 100 mg DAILY KENDRICK Administration Objective: Vital Signs Period Temp Pulse Resp BP Sys/Choi Pulse Ox Last 24 Hr 98.8 F-101.4 F 80-96 18-20 108-121/65-71 92-95 Physical Exam: General: NAD Lungs: CTA bilaterally Heart: RRR, S1S2 Abd: Soft, distended. Normoactive bowel sounds Ext: RLE with dressing (refusing to have it removed) CBCD WBC 3.0 K/mm3 (4.0-10.0) L 09/01/16 06:00 RBC 3.47 M/mm3 (4.00-5.60) L 09/01/16 06:00 Hgb 7.7 GM/dL (11.7-16.9) L 09/01/16 06:00 Hct 25.1 % (35.4-49) L 09/01/16 06:00 MCV 72.3 fl (80-96) L 09/01/16 06:00 MCHC 30.6 g/dl (32.0-35.9) L 09/01/16 06:00 RDW 19.3 % (11.9-15.9) H 09/01/16 06:00 Plt Count 65 K/MM3 (134-434) L 09/01/16 06:00 MPV 8.4 fl (7.5-11.1) 09/01/16 06:00 CMP Sodium 141 mmol/L (136-145) 09/01/16 06:00 Potassium 3.1 mmol/L (3.5-5.1) L 09/01/16 06:00 Chloride 108 mmol/L (98-107) H 09/01/16 06:00 Carbon Dioxide 26 mmol/L (21-32) 09/01/16 06:00 Anion Gap 7 (8-16) L 09/01/16 06:00 BUN 8 mg/dL (7-18) 09/01/16 06:00 Creatinine 0.5 mg/dL (0.7-1.3) L 09/01/16 06:00 Creat Clearance w eGFR > 60 (>60) 09/01/16 06:00 Random Glucose 67 mg/dL (74-106) L 09/01/16 06:00 Calcium 7.2 mg/dL (8.5-10.1) L 09/01/16 06:00 Total Bilirubin 1.3 mg/dL (0.2-1.0) H 09/01/16 06:00 AST 50 U/L (15-37) H 09/01/16 06:00 ALT 21 U/L (12-78) 09/01/16 06:00 Alkaline Phosphatase 156 U/L (45-117) H 09/01/16 06:00 Total Protein 5.7 g/dl (6.4-8.2) L 09/01/16 06:00 Albumin 1.5 g/dl (3.4-5.0) L 09/01/16 06:00 CARDIAC ENZYMES Creatine Kinase 273 IU/L (39-308) 08/29/16 02:30 Troponin I < 0.02 ng/ml (0.00-0.05) 08/29/16 02:30 Microbiology 08/29/16 02:30 Blood - Peripheral Venous Blood Culture - Preliminary NO GROWTH OBTAINED AFTER 72 HOURS, INCUBATION TO CONTINUE FOR 2 DAYS. 08/29/16 02:30 Blood - Peripheral Venous Blood Culture - Preliminary Escherichia Vulneris Pending Organism Pending Organism#2 08/29/16 16:30 Urine - Urine Clean Catch Urine Culture - Final NO GROWTH OBTAINED Assessment: This is a 46 year old male with PMHx of liver cirrhosis, esophageal varices, ETOH abuse, polysubstance abuse, chronic right lower extremity would, HCV (recent admission for cellulitis, left AMA), who presented to the ED with worsening right lower extremity pain and intermittent fevers. Plan: 1) ID: Polymicrobial bacteremia, RLE cellulitis - Tmax 101.4 - Abx switched to Vancomycin and Cefazolin - Monitor WBC - F/u repeat blood cultures 08/31 - Appreciate ID consult 2) Vascular: Chronic right lower extremity wound - Collagenase daily - Compression with tesfaye bandage - Leg elevation - Appreciate vascular surgery consult 3) GI: Liver cirrhosis - No evidence of hepatic encephalopathy, continue to monitor - Pancytopenia 2/2 liver disease - Elevated INR 2/2 liver disease 4) Psych: Acute alcohol withdrawal - Completed Librium taper 5) F/E/N: - Hypokalemia: replete - Hypomagenesemia: replete - Regular diet 6) Prophylaxis: - SCDs bilaterally - No chemical DVT prophylaxis 2/2 thrombocytopenia 7) Dispo: - Requires continued inpatient care CODE STATUS: FULL CODE Visit type - Emergency Visit Emergency Visit: Yes ED Registration Date: 08/29/16 Care time: The patient presented to the Emergency Department on the above date and was hospitalized for further evaluation of their emergent condition. - New Patient This patient is new to me today: No - Critical Care Critical Care patient: No
[2016-09-01] MEDS: MULTIVITAMINS (DAILY MVI) TABLET (FP) PO SCH (09:50)
[2016-09-01] MEDS: VANCOMYCIN 1,250 MG in DEXTROSE 5%-WATER - 250 ML IVPB SCH (09:50)
[2016-09-01] MEDS: FUROSEMIDE 40 MG TABLET (FP) PO SCH (09:50)
[2016-09-01] MEDS: METHADONE HCL 10 MG TABLET PO SCH (09:50)
[2016-09-01] MEDS: THIAMINE HCL 100 MG TABLET (FP) PO SCH (09:50)
[2016-09-01] MEDS: FOLIC ACID 1 MG TABLET (FP) PO SCH (09:50)
[2016-09-01] MEDS: POTASSIUM CHLORIDE TABS 20 MEQ TABLET.ER (FP) PO SCH ×2 (09:51→21:08)
[2016-09-01] MEDS: MAGNESIUM OXIDE 400 MG TABLET (FP) PO SCH ×2 (09:51→21:07)
[2016-09-01] MEDS: COLLAGENASE CLOSTRIDIUM HIST. 30 GRAMS TUBE TP SCH (09:54)
[2016-09-01 11:52] LABS: ANISOCYTOSIS 2+; HYPOCHROMIA 3+; MICROCYTOSIS 2+
--- NOTE | 2016-09-01 16:11 | PN ---
Progress Note (short form) - Note Progress Note: alert febrile overnight Vital Signs Period Temp Pulse Resp BP Sys/Choi Pulse Ox Last 24 Hr 98.2 F-101.4 F 84-96 18-18 103-121/60-71 95-95 cor-rrr lungs clear abd firm NT ext +edema, erythema markedly improved CBC, BMP 09/01/16 06:00 09/01/16 06:00 Microbiology 08/31/16 15:30 Blood - Peripheral Venous Blood Culture - Preliminary NO GROWTH OBTAINED AFTER 24 HOURS, INCUBATION TO CONTINUE FOR 4 DAYS. 08/31/16 15:30 Blood - Peripheral Venous Blood Culture - Preliminary NO GROWTH OBTAINED AFTER 24 HOURS, INCUBATION TO CONTINUE FOR 4 DAYS. 08/29/16 02:30 Blood - Peripheral Venous Blood Culture - Preliminary Escherichia Vulneris Gram Positive Bacillus Gram Positive Bacillus#2 Diphtheroid/Corynebacterium 08/29/16 02:30 Blood - Peripheral Venous Blood Culture - Preliminary NO GROWTH OBTAINED AFTER 72 HOURS, INCUBATION TO CONTINUE FOR 2 DAYS. 08/29/16 16:30 Urine - Urine Clean Catch Urine Culture - Final NO GROWTH OBTAINED Impression/Plan: Fever and polymicrobial bacteremia- suspect contaminant repeat blood cultures pending cefazolin/vancomycin cellulitis with venous stasis ulcer cirrhosis consider d/c IVF
[2016-09-02] MEDS: ceFAZolin 2 GRAM PREMIX BAG IVPB SCH ×2 (00:40→09:09)
[2016-09-02] MEDS: oxyCODONE HCL 5 MG TABLET PO PRN ×4 (00:55→18:49)
[2016-09-02] MEDS: ACETAMINOPHEN 325 MG TABLET (FP) PO PRN ×3 (00:58→18:48)
[2016-09-02 07:55] LABS: BASOPHIL 1.5 % (0-2.0); EOSINOPHIL 5.7 % (0-4.5); MCH 22.1 pg (25.7-33.7); MCHC 30.6 g/dl (32.0-35.9); MEAN CELL VOLUME 72.4 fl (80-96); MEAN PLT VOLUME 8.2 fl (7.5-11.1); NEUTROPHILS 56.5 % (42.8-82.8); PLATELET COUNT 69 K/MM3 (134-434); RDW 19.6 % (11.9-15.9); WHITE BLOOD COUNT 3.5 K/mm3 (4.0-10.0)
[2016-09-02 08:27] LABS: ALBUMIN 1.4 g/dl (3.4-5.0); ALK PHOS 153 U/L (45-117); ANION GAP 6 (8-16); BILIRUBIN,TOTAL 1.3 mg/dL (0.2-1.0); CALCIUM 7.3 mg/dL (8.5-10.1); CO2 26 mmol/L (21-32); CREATININE 0.4 mg/dL (0.7-1.3); GLUCOSE,RANDOM 105 mg/dL (74-106); MAGNESIUM 1.7 mg/dL (1.8-2.4); SGOT/AST 50 U/L (15-37); SGPT/ALT 20 U/L (12-78); TOT PROT 5.3 g/dl (6.4-8.2)
--- NOTE | 2016-09-02 08:49 | PN ---
Physical Exam: SUBJECTIVE: Patient seen and examined. Complains that he was unable to sleep last night. OBJECTIVE: TMax 101.4 @ 2am. Vital Signs Period Temp Pulse Resp BP Sys/Choi Pulse Ox Last 24 Hr 98.7 F-101.4 F 81-95 18-18 99-116/60-62 95-96 GENERAL: The patient is awake, alert, and fully oriented, in no acute distress. HEAD: Normal with no signs of trauma. EYES: PERRL, extraocular movements intact, sclera anicteric, conjunctiva clear. No ptosis. ENT: Ears normal, nares patent, oropharynx clear without exudates, moist mucous membranes. NECK: Trachea midline, full range of motion, supple. LUNGS: Breath sounds equal, clear to auscultation bilaterally, no wheezes, no crackles, no accessory muscle use. HEART: Regular rate and rhythm, S1, S2 without murmur, rub or gallop. ABDOMEN: Protuberant, firm, non-tender, normoactive bowel sounds, no guarding, no rebound, no hepatosplenomegaly, no masses. EXTREMITIES: 2+ pulses. RLE 2+ non-pitting edema. Refuses removal of RLE dressing for wound inspection. NEUROLOGICAL: Cranial nerves II through XII grossly intact. Normal speech, gait not observed. PSYCH: Argumentative.. SKIN: Warm, dry, normal turgor. Laboratory Results - last 24 hr 09/01/16 09/02/16 09/02/16 06:00 06:05 06:05 WBC 3.0 L 3.5 L RBC 3.47 L 3.49 L Hgb 7.7 L 7.7 L Hct 25.1 L 25.3 L MCV 72.3 L 72.4 L MCH 22.1 L 22.1 L MCHC 30.6 L 30.6 L RDW 19.3 H 19.6 H Plt Count 65 L 69 L MPV 8.4 8.2 Neutrophils % 51.4 56.5 Lymphocytes % 22.9 D 19.5 Monocytes % 17.4 H 16.8 H Eosinophils % 6.3 H 5.7 H Basophils % 2.0 1.5 Hypochromic-Microcytic 3+ Anisocytosis 2+ Microcytosis 2+ Sodium 139 Potassium 3.3 L Chloride 107 Carbon Dioxide 26 Anion Gap 6 L BUN 7 Creatinine 0.4 L Creat Clearance w eGFR > 60 Random Glucose 105 D Calcium 7.3 L Magnesium 1.7 L Total Bilirubin 1.3 H AST 50 H ALT 20 Alkaline Phosphatase 153 H Total Protein 5.3 L Albumin 1.4 L Active Medications Generic Name Dose Route Start Last Admin Trade Name Shenq PRN Reason Stop Dose Admin Acetaminophen 650 mg 08/29/16 23:52 09/02/16 00:58 Tylenol - PO 650 mg Q6H PRN Administration FEVER OR PAIN Cefazolin Sodium/Dextrose 2 gm 08/31/16 16:15 09/02/16 00:40 Ancef 2 Gm Premixed Ivpb - IVPB 2 gm Q8H KENDRICK Administration Collagenase 1 applic 08/29/16 10:00 09/01/16 09:54 Santyl - TP 1 applic DAILY KENDRICK Administration Folic Acid 1 mg 08/31/16 10:00 09/01/16 09:50 Folic Acid - PO 1 mg DAILY KENDRICK Administration Furosemide 40 mg 08/29/16 10:00 09/01/16 09:50 Lasix - PO 40 mg DAILY KENDRICK Administration Vancomycin HCl 1,250 mg/ 250 mls @ 166.667 mls/hr 08/31/16 16:00 09/01/16 09:50 Dextrose IVPB 166.667 mls/hr DAILY KENDRICK Administration Protocol Magnesium Oxide 400 mg 09/01/16 10:00 09/01/16 21:07 Mag-Ox - PO 09/02/16 22:01 400 mg BID KENDRICK Administration Methadone HCl 10 mg 08/29/16 12:45 09/01/16 09:50 Dolophine - PO 10 mg DAILY KENDRICK Administration Multivitamins/Minerals/Vitamin C 1 tab 08/31/16 10:00 09/01/16 09:50 Tab-A-Vit - PO 1 tab DAILY KENDRICK Administration Oxycodone HCl 5 mg 08/29/16 04:59 09/02/16 06:35 Roxicodone - PO 5 mg Q4H PRN Administration PAIN Potassium Chloride 40 meq 09/02/16 08:48 K-Dur - PO 09/02/16 08:49 ONCE ONE Thiamine HCl 100 mg 08/31/16 10:00 09/01/16 09:50 Vitamin B1 - PO 100 mg DAILY KENDRICK Administration Microbiology 08/29/16 02:30 Blood - Peripheral Venous Blood Culture - Preliminary Escherichia Vulneris Propionibacterium Acnes Diphtheroid/Corynebacterium#2 Diphtheroid/Corynebacterium 08/29/16 02:30 Blood - Peripheral Venous Blood Culture - Preliminary NO GROWTH OBTAINED AFTER 96 HOURS, INCUBATION TO CONTINUE FOR 1 DAYS. 08/31/16 15:30 Blood - Peripheral Venous Blood Culture - Preliminary NO GROWTH OBTAINED AFTER 24 HOURS, INCUBATION TO CONTINUE FOR 4 DAYS. 08/31/16 15:30 Blood - Peripheral Venous Blood Culture - Preliminary NO GROWTH OBTAINED AFTER 24 HOURS, INCUBATION TO CONTINUE FOR 4 DAYS. 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 Plan: 1) ID: Polymicrobial bacteremia, RLE cellulitis - Tmax 101.4 again today - Continue Vancomycin (Day #3) and Cefazolin (Day #3) - Monitor WBC, temp - Tylenol prn fever - F/u repeat blood cultures 08/31 - ID following 2) Vascular: Chronic right lower extremity wound - Collagenase daily - Compression with tesfaye bandage - Leg elevation - Vascular following 3) GI: Liver cirrhosis - No evidence of hepatic encephalopathy, continue to monitor - Pancytopenia 2/2 liver disease - Prolonged INR 2/2 liver disease - No abdominal tenderness to suggest SBP 4) Psych: Acute alcohol withdrawal (resolved) - Completed Librium taper 5) F/E/N: - Hypokalemia: replete - Hypomagenesemia: replete - Regular diet 6) Prophylaxis: - SCDs bilaterally - No chemical DVT prophylaxis 2/2 thrombocytopenia 7) Dispo: - Requires continued inpatient care CODE STATUS: FULL CODE
[2016-09-02] MEDS ORDERED: diphenhydrAMINE HCL 25 MG CAPSULE (FP) PO PRN (08:53)
[2016-09-02] MEDS ORDERED: POTASSIUM CHLORIDE TABS 20 MEQ TABLET.ER (FP) PO ONE (09:15)
[2016-09-02] MEDS: FOLIC ACID 1 MG TABLET (FP) PO SCH (09:56)
[2016-09-02] MEDS: MULTIVITAMINS (DAILY MVI) TABLET (FP) PO SCH (09:56)
[2016-09-02] MEDS: METHADONE HCL 10 MG TABLET PO SCH (09:57)
[2016-09-02] MEDS: COLLAGENASE CLOSTRIDIUM HIST. 30 GRAMS TUBE TP SCH (09:57)
[2016-09-02] MEDS: THIAMINE HCL 100 MG TABLET (FP) PO SCH (09:57)
[2016-09-02] MEDS: MAGNESIUM OXIDE 400 MG TABLET (FP) PO SCH ×2 (09:57→21:18)
[2016-09-02] MEDS: VANCOMYCIN 1,250 MG in DEXTROSE 5%-WATER - 250 ML IVPB SCH (09:57)
[2016-09-02] MEDS: FUROSEMIDE 40 MG TABLET (FP) PO SCH (09:57)
[2016-09-02] MEDS ORDERED: PIPERACILLIN/TAZOB 3.375 GM/50 ML PRE-DOCKED IVPB SCH (11:30)
[2016-09-02] MEDS ORDERED: PIPERACILLIN/TAZOBACTAM 3.375 GM VIAL IVPB ONE ×2 (12:20→18:40)
[2016-09-02] MEDS ORDERED: DEXTROSE 5%-WATER 100 ML IVPB ONE ×2 (12:21→18:40)
[2016-09-02] MEDS: PIPERACILLIN/TAZOB 3.375 GM 3.375 GM in DEXTROSE 5%-WATER 100 ML IVPB SCH ×2 (12:23→18:46)
--- NOTE | 2016-09-02 15:01 | PN ---
Progress Note (short form) - Note Progress Note: still with intermittent fever otherwise well Vital Signs Period Temp Pulse Resp BP Sys/Choi Pulse Ox Last 24 Hr 98.9 F-101.4 F 81-95 18-20 97-131/60-62 94-96 cor-rrr lungs decreased bs at bases abd soft,nt ext +edema much less erythema cxray bibasilar infiltrates CBC, BMP 09/02/16 06:05 09/02/16 06:05 Impression/Plan: Fever and polymicrobial bacteremia- suspect contaminant now with pneumonia cellulitis with venous stasis ulcer-improving vancomycin for cellulitis add zosyn for HAP check vancomycin level cirrhosis consider d/c IVF
[2016-09-03] MEDS ORDERED: DEXTROSE 5%-WATER 100 ML IVPB ONE ×3 (01:18→16:50)
[2016-09-03] MEDS ORDERED: PIPERACILLIN/TAZOBACTAM 3.375 GM VIAL IVPB ONE ×4 (01:18→17:34)
[2016-09-03] MEDS: PIPERACILLIN/TAZOB 3.375 GM 3.375 GM in DEXTROSE 5%-WATER 100 ML IVPB SCH ×3 (01:22→17:11)
[2016-09-03] MEDS: ACETAMINOPHEN 325 MG TABLET (FP) PO PRN ×2 (01:26→22:27)
[2016-09-03] MEDS: oxyCODONE HCL 5 MG TABLET PO PRN ×3 (01:26→22:27)
--- NOTE | 2016-09-03 07:25 | PN ---
Physical Exam: SUBJECTIVE: Patient seen and examined. Feels better. No fevers/chills overnight. Slept better. OBJECTIVE: Hospital day #5 for this 46 year old male admitted with alcohol withdrawal and venous stasis ulcer with cellulitis. Persistent fevers; CXR yesterday with bilateral infiltrates. Abx adjusted. Vital Signs Period Temp Pulse Resp BP Sys/Choi Pulse Ox Last 24 Hr 98.5 F-99.1 F 76-86 16-20 97-131/50-70 94 GENERAL: The patient is awake, alert, and fully oriented, in no acute distress. HEAD: Normal with no signs of trauma. EYES: PERRL, extraocular movements intact, sclera anicteric, conjunctiva clear. No ptosis. ENT: Ears normal, nares patent, oropharynx clear without exudates, moist mucous membranes. NECK: Trachea midline, full range of motion, supple. LUNGS: Breath sounds equal, clear to auscultation bilaterally, no wheezes, no crackles, no accessory muscle use. HEART: Regular rate and rhythm, S1, S2 without murmur, rub or gallop. ABDOMEN: Soft, nontender, nondistended, normoactive bowel sounds, no guarding, no rebound, no hepatosplenomegaly, no masses. EXTREMITIES: 2+ pulses, warm, well-perfused, no edema. NEUROLOGICAL: Cranial nerves II through XII grossly intact. Normal speech, gait not observed. PSYCH: Normal mood, normal affect. SKIN: 5x5 cm calf ulceration and adjacent 2 x 3cm ulcaration lateral to right bertrand with surrounding erythema, weeping serosanguinous fluid. Laboratory Results - last 24 hr 09/02/16 09/02/16 06:05 06:05 WBC 3.5 L RBC 3.49 L Hgb 7.7 L Hct 25.3 L MCV 72.4 L MCH 22.1 L MCHC 30.6 L RDW 19.6 H Plt Count 69 L MPV 8.2 Neutrophils % 56.5 Lymphocytes % 19.5 Monocytes % 16.8 H Eosinophils % 5.7 H Basophils % 1.5 Sodium 139 Potassium 3.3 L Chloride 107 Carbon Dioxide 26 Anion Gap 6 L BUN 7 Creatinine 0.4 L Creat Clearance w eGFR > 60 Random Glucose 105 D Calcium 7.3 L Magnesium 1.7 L Total Bilirubin 1.3 H AST 50 H ALT 20 Alkaline Phosphatase 153 H Total Protein 5.3 L Albumin 1.4 L Active Medications Generic Name Dose Route Start Last Admin Trade Name Freq PRN Reason Stop Dose Admin Acetaminophen 650 mg 08/29/16 23:52 09/03/16 01:26 Tylenol - PO 650 mg Q6H PRN Administration FEVER OR PAIN Collagenase 1 applic 08/29/16 10:00 09/02/16 09:57 Santyl - TP 1 applic DAILY KENDRICK Administration Diphenhydramine HCl 25 mg 09/02/16 08:53 Benadryl - PO HS PRN INSOMNIA Folic Acid 1 mg 08/31/16 10:00 09/02/16 09:56 Folic Acid - PO 1 mg DAILY KENDRICK Administration Furosemide 40 mg 08/29/16 10:00 09/02/16 09:57 Lasix - PO 40 mg DAILY KENDRICK Administration Vancomycin HCl 1,250 mg/ 250 mls @ 166.667 mls/hr 08/31/16 16:00 09/02/16 09:57 Dextrose IVPB 166.667 mls/hr DAILY KENDRICK Administration Protocol Piperacillin Sod/Tazobactam 100 mls @ 200 mls/hr 09/02/16 12:15 09/03/16 01:22 Sod 3.375 gm/ Dextrose IVPB 200 mls/hr Q8H-IV KENDRICK Administration Methadone HCl 10 mg 08/29/16 12:45 09/02/16 09:57 Dolophine - PO 10 mg DAILY KENDRICK Administration Multivitamins/Minerals/Vitamin C 1 tab 08/31/16 10:00 09/02/16 09:56 Tab-A-Vit - PO 1 tab DAILY KENDRICK Administration Oxycodone HCl 5 mg 08/29/16 04:59 09/03/16 06:11 Roxicodone - PO 5 mg Q4H PRN Administration PAIN Thiamine HCl 100 mg 08/31/16 10:00 09/02/16 09:57 Vitamin B1 - PO 100 mg DAILY KENDRICK Administration Microbiology 08/29/16 02:30 Blood - Peripheral Venous Blood Culture - Final NO GROWTH AFTER 5 DAYS INCUBATION 08/31/16 15:30 Blood - Peripheral Venous Blood Culture - Preliminary NO GROWTH OBTAINED AFTER 48 HOURS, INCUBATION TO CONTINUE FOR 3 DAYS. 08/31/16 15:30 Blood - Peripheral Venous Blood Culture - Preliminary NO GROWTH OBTAINED AFTER 48 HOURS, INCUBATION TO CONTINUE FOR 3 DAYS. 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 Plan: 1) ID: Polymicrobial bacteremia, RLE cellulitis - Blood culture 08/29 polymicrobial, but contaminant suspected - Repeat from 08/31 ngtd, repeat from 09/02 pending - Afebrile overnight - Continue Vancomycin (Day #4 - check trough) and Zosyn (Day #2) - Monitor WBC, temp - Tylenol prn fever - ID following 2) Vascular: Chronic right lower extremity wound - Collagenase daily - Compression with tesfaye bandage - Leg elevation - Vascular following 3) GI: Liver cirrhosis - No evidence of hepatic encephalopathy, continue to monitor - Pancytopenia 2/2 liver disease - Prolonged INR 2/2 liver disease - No abdominal tenderness to suggest SBP 4) Psych: Acute alcohol withdrawal (resolved) - Completed Librium taper 5) F/E/N: - Hypokalemia: replete - Hypomagenesemia: replete - Regular diet 6) Prophylaxis: - No chemical DVT prophylaxis 2/2 thrombocytopenia 7) Dispo: - Requires continued inpatient care CODE STATUS: FULL CODE
[2016-09-03 10:00] LABS: BASOPHIL 2.2 % (0-2.0); EOSINOPHIL 6.2 % (0-4.5); MCH 22.1 pg (25.7-33.7); MCHC 30.3 g/dl (32.0-35.9); MEAN CELL VOLUME 72.8 fl (80-96); MEAN PLT VOLUME 8.3 fl (7.5-11.1); NEUTROPHILS 60.8 % (42.8-82.8); PLATELET COUNT 70 K/MM3 (134-434); RDW 19.2 % (11.9-15.9); WHITE BLOOD COUNT 3.7 K/mm3 (4.0-10.0)
[2016-09-03 10:14] LABS: ALBUMIN 1.4 g/dl (3.4-5.0); ANION GAP 5 (8-16); BILIRUBIN,TOTAL 1.1 mg/dL (0.2-1.0); CALCIUM 7.3 mg/dL (8.5-10.1); CO2 26 mmol/L (21-32); CREATININE 0.5 mg/dL (0.7-1.3); GLUCOSE,RANDOM 86 mg/dL (74-106); SGOT/AST 59 U/L (15-37); TOT PROT 5.8 g/dl (6.4-8.2)
[2016-09-03 10:15] LABS: ALK PHOS 179 U/L (45-117); SGPT/ALT 21 U/L (12-78)
[2016-09-03] MEDS: FUROSEMIDE 40 MG TABLET (FP) PO SCH (10:20)
[2016-09-03] MEDS: FOLIC ACID 1 MG TABLET (FP) PO SCH (10:20)
[2016-09-03] MEDS: MULTIVITAMINS (DAILY MVI) TABLET (FP) PO SCH (10:20)
[2016-09-03] MEDS: THIAMINE HCL 100 MG TABLET (FP) PO SCH (10:20)
[2016-09-03] MEDS: METHADONE HCL 10 MG TABLET PO SCH (10:20)
[2016-09-03] MEDS: COLLAGENASE CLOSTRIDIUM HIST. 30 GRAMS TUBE TP SCH (10:22)
[2016-09-03] MEDS: VANCOMYCIN 1,250 MG in DEXTROSE 5%-WATER - 250 ML IVPB SCH ×3 (11:35→22:27)
[2016-09-04] MEDS ORDERED: DEXTROSE 5%-WATER 100 ML IVPB ONE ×3 (02:07→17:58)
[2016-09-04] MEDS ORDERED: PIPERACILLIN/TAZOBACTAM 3.375 GM VIAL IVPB ONE ×3 (02:07→17:58)
[2016-09-04] MEDS: PIPERACILLIN/TAZOB 3.375 GM 3.375 GM in DEXTROSE 5%-WATER 100 ML IVPB SCH ×3 (02:29→18:01)
[2016-09-04] MEDS: oxyCODONE HCL 5 MG TABLET PO PRN ×3 (06:37→21:05)
[2016-09-04] MEDS: ACETAMINOPHEN 325 MG TABLET (FP) PO PRN ×2 (06:37→16:35)
[2016-09-04 07:43] LABS: EOSINOPHIL 5.5 % (0-4.5); MCH 22.1 pg (25.7-33.7); MCHC 30.8 g/dl (32.0-35.9); MEAN CELL VOLUME 71.8 fl (80-96); MEAN PLT VOLUME 8.2 fl (7.5-11.1); NEUTROPHILS 49.8 % (42.8-82.8); PLATELET COUNT 77 K/MM3 (134-434); RDW 19.6 % (11.9-15.9); WHITE BLOOD COUNT 3.3 K/mm3 (4.0-10.0)
--- NOTE | 2016-09-04 08:16 | PN ---
Physical Exam: SUBJECTIVE: Patient seen and examined OBJECTIVE: Vital Signs Period Temp Pulse Resp BP Sys/Choi Pulse Ox Last 24 Hr 98.6 F-100.1 F 76-85 16-18 101-118/57-64 98-98 GENERAL: The patient is awake, alert, and fully oriented, in no acute distress. HEAD: Normal with no signs of trauma. EYES: PERRL, extraocular movements intact, sclera anicteric, conjunctiva clear. No ptosis. ENT: Ears normal, nares patent, oropharynx clear without exudates, moist mucous membranes. NECK: Trachea midline, full range of motion, supple. LUNGS: Breath sounds equal, clear to auscultation bilaterally, no wheezes, no crackles, no accessory muscle use. HEART: Regular rate and rhythm, S1, S2 without murmur, rub or gallop. ABDOMEN: Soft, nontender, nondistended, normoactive bowel sounds, no guarding, no rebound, no hepatosplenomegaly, no masses. EXTREMITIES: 2+ pulses, warm, well-perfused, 2+ non-pitting LE edema, improving. NEUROLOGICAL: Cranial nerves II through XII grossly intact. Normal speech, gait not observed. PSYCH: Normal mood, normal affect. SKIN: 5x5 cm calf ulceration and adjacent 2 x 3cm ulcaration lateral to right bertrand with surrounding erythema, weeping serosanguinous fluid. Laboratory Results - last 24 hr 09/03/16 09/03/16 09/03/16 09:25 09:25 09:25 WBC 3.7 L RBC 3.66 L Hgb 8.1 L Hct 26.6 L MCV 72.8 L MCH 22.1 L MCHC 30.3 L RDW 19.2 H Plt Count 70 L MPV 8.3 Neutrophils % 60.8 Lymphocytes % 16.0 Monocytes % 14.8 H Eosinophils % 6.2 H Basophils % 2.2 H Sodium 140 Potassium 3.5 Chloride 109 H Carbon Dioxide 26 Anion Gap 5 L BUN 7 Creatinine 0.5 L D Creat Clearance w eGFR > 60 Random Glucose 86 Calcium 7.3 L Total Bilirubin 1.1 H AST 59 H ALT 21 Alkaline Phosphatase 179 H Total Protein 5.8 L Albumin 1.4 L Vancomycin Pre-Dose 1.811 L* 09/04/16 06:55 WBC 3.3 L RBC 3.67 L Hgb 8.1 L Hct 26.3 L MCV 71.8 L MCH 22.1 L MCHC 30.8 L RDW 19.6 H Plt Count 77 L MPV 8.2 Neutrophils % 49.8 Lymphocytes % 22.9 D Monocytes % 19.8 H Eosinophils % 5.5 H Basophils % 2.0 Sodium Potassium Chloride Carbon Dioxide Anion Gap BUN Creatinine Creat Clearance w eGFR Random Glucose Calcium Total Bilirubin AST ALT Alkaline Phosphatase Total Protein Albumin Vancomycin Pre-Dose Active Medications Generic Name Dose Route Start Last Admin Trade Name Freq PRN Reason Stop Dose Admin Acetaminophen 650 mg 08/29/16 23:52 09/04/16 06:37 Tylenol - PO 650 mg Q6H PRN Administration FEVER OR PAIN Collagenase 1 applic 08/29/16 10:00 09/03/16 10:22 Santyl - TP 1 applic DAILY KENDRICK Administration Diphenhydramine HCl 25 mg 09/02/16 08:53 Benadryl - PO HS PRN INSOMNIA Folic Acid 1 mg 08/31/16 10:00 09/03/16 10:20 Folic Acid - PO 1 mg DAILY KENDRICK Administration Furosemide 40 mg 08/29/16 10:00 09/03/16 10:20 Lasix - PO 40 mg DAILY KENDRICK Administration Piperacillin Sod/Tazobactam 100 mls @ 200 mls/hr 09/02/16 12:15 09/04/16 02:29 Sod 3.375 gm/ Dextrose IVPB 200 mls/hr Q8H-IV KENDRICK Administration Vancomycin HCl 1,250 mg/ 250 mls @ 166.667 mls/hr 09/03/16 22:00 09/03/16 22:27 Dextrose IVPB 166.667 mls/hr BID KENDRICK Administration Protocol Methadone HCl 10 mg 08/29/16 12:45 09/03/16 10:20 Dolophine - PO 10 mg DAILY KENDRICK Administration Multivitamins/Minerals/Vitamin C 1 tab 08/31/16 10:00 09/03/16 10:20 Tab-A-Vit - PO 1 tab DAILY KENDRICK Administration Oxycodone HCl 5 mg 08/29/16 04:59 09/04/16 06:37 Roxicodone - PO 5 mg Q4H PRN Administration PAIN Thiamine HCl 100 mg 08/31/16 10:00 09/03/16 10:20 Vitamin B1 - PO 100 mg DAILY KENDRICK Administration Microbiology 08/31/16 15:30 Blood - Peripheral Venous Blood Culture - Preliminary NO GROWTH OBTAINED AFTER 72 HOURS, INCUBATION TO CONTINUE FOR 2 DAYS. 08/31/16 15:30 Blood - Peripheral Venous Blood Culture - Preliminary NO GROWTH OBTAINED AFTER 72 HOURS, INCUBATION TO CONTINUE FOR 2 DAYS. 09/02/16 12:58 Blood - Peripheral Venous Blood Culture - Preliminary NO GROWTH OBTAINED AFTER 24 HOURS, INCUBATION TO CONTINUE FOR 4 DAYS. 09/02/16 12:55 Blood - Peripheral Venous Blood Culture - Preliminary NO GROWTH OBTAINED AFTER 24 HOURS, INCUBATION TO CONTINUE FOR 4 DAYS. 08/29/16 02:30 Blood - Peripheral Venous Blood Culture - Final NO GROWTH AFTER 5 DAYS INCUBATION 08/29/16 02:30 Blood - Peripheral Venous Blood Culture - Preliminary Escherichia Vulneris Propionibacterium Acnes Diphtheroid/Corynebacterium#2 Diphtheroid/Corynebacterium 08/29/16 16:30 Urine - Urine Clean Catch Urine Culture - Final NO GROWTH OBTAINED IMAGING: CXR 08/29: No active pulmonary disease Vascular u/s: No DVT bilaterally Abd u/s: Cirrhosis with portal HTN CXR 09/02: Left retrocardiac and right base infiltrates ASSESSMENT/PLAN: 46 year old male with liver cirrhosis/Hep C, esophageal varices , ETOH abuse, polysubstance abuse, chronic right lower extremity would, (recent admission for cellulitis, left AMA), who presented to the ED with worsening right lower extremity pain and intermittent fevers. Plan: 1) ID: Polymicrobial bacteremia, RLE cellulitis - Blood culture 08/29 polymicrobial, but contaminant suspected - Repeat from 08/31 ngtd, repeat from 09/02 also ngtd - TMax overnight 100.1 - Continue Vancomycin (Day #5 - increased to bid per yesterday's trough 1.8) and Zosyn (Day #3) - Monitor WBC, temp - Tylenol prn fever - ID following 2) Vascular: Chronic right lower extremity wound - Collagenase daily - Compression with tesfaye bandage - Lasix - Leg elevation - Vascular following 3) GI: Liver cirrhosis - No evidence of hepatic encephalopathy - Pancytopenia 2/2 liver disease - Prolonged INR 2/2 liver disease - No abdominal tenderness to suggest SBP 4) Psych: Acute alcohol withdrawal (resolved) - Completed Librium taper 5) F/E/N: - Hypokalemia: resolved - Hypomagenesemia: on daily Mg - Regular diet 6) Prophylaxis: - No chemical DVT prophylaxis 2/2 thrombocytopenia 7) Dispo: - Requires continued inpatient care CODE STATUS: FULL CODE
[2016-09-04 08:25] LABS: ALBUMIN 1.4 g/dl (3.4-5.0); ALK PHOS 177 U/L (45-117); ANION GAP 7 (8-16); CALCIUM 7.7 mg/dL (8.5-10.1); CO2 26 mmol/L (21-32); CREATININE 0.5 mg/dL (0.7-1.3); GLUCOSE,RANDOM 71 mg/dL (74-106); SGOT/AST 56 U/L (15-37); SGPT/ALT 20 U/L (12-78); TOT PROT 5.6 g/dl (6.4-8.2)
[2016-09-04 09:13] LABS: MAGNESIUM 1.9 mg/dL (1.8-2.4)
[2016-09-04] MEDS ORDERED: PT OWN MED DRAWER 7, Y5N ONE (10:23)
[2016-09-04] MEDS: MULTIVITAMINS (DAILY MVI) TABLET (FP) PO SCH (10:29)
[2016-09-04] MEDS: THIAMINE HCL 100 MG TABLET (FP) PO SCH (10:29)
[2016-09-04] MEDS: FOLIC ACID 1 MG TABLET (FP) PO SCH (10:29)
[2016-09-04] MEDS: METHADONE HCL 10 MG TABLET PO SCH (10:29)
[2016-09-04] MEDS: FUROSEMIDE 40 MG TABLET (FP) PO SCH (10:29)
[2016-09-04] MEDS: VANCOMYCIN 1,250 MG in DEXTROSE 5%-WATER - 250 ML IVPB SCH ×2 (11:40→21:05)
[2016-09-04] MEDS: COLLAGENASE CLOSTRIDIUM HIST. 30 GRAMS TUBE TP SCH (16:38)
[2016-09-05] MEDS: ACETAMINOPHEN 325 MG TABLET (FP) PO PRN ×2 (00:55→06:11)
[2016-09-05] MEDS: oxyCODONE HCL 5 MG TABLET PO PRN ×3 (00:56→14:06)
[2016-09-05] MEDS: PIPERACILLIN/TAZOB 3.375 GM 3.375 GM in DEXTROSE 5%-WATER 100 ML IVPB SCH ×3 (04:00→17:19)
[2016-09-05] MEDS ORDERED: PIPERACILLIN/TAZOBACTAM 3.375 GM VIAL IVPB ONE ×3 (04:33→17:16)
[2016-09-05] MEDS ORDERED: DEXTROSE 5%-WATER 100 ML IVPB ONE ×3 (04:33→17:16)
[2016-09-05 08:17] LABS: MCH 22.4 pg (25.7-33.7); MCHC 31.3 g/dl (32.0-35.9); MEAN CELL VOLUME 71.6 fl (80-96); MEAN PLT VOLUME 8.2 fl (7.5-11.1); PLATELET COUNT 85 K/MM3 (134-434); RDW 19.8 % (11.9-15.9); WHITE BLOOD COUNT 3.1 K/mm3 (4.0-10.0)
[2016-09-05 08:36] LABS: ALBUMIN 1.4 g/dl (3.4-5.0); ALK PHOS 238 U/L (45-117); ANION GAP 6 (8-16); BILIRUBIN,TOTAL 0.8 mg/dL (0.2-1.0); CALCIUM 7.4 mg/dL (8.5-10.1); CO2 27 mmol/L (21-32); CREATININE 0.5 mg/dL (0.7-1.3); GLUCOSE,RANDOM 86 mg/dL (74-106); SGOT/AST 60 U/L (15-37); SGPT/ALT 21 U/L (12-78); TOT PROT 5.9 g/dl (6.4-8.2)
[2016-09-05] MEDS ORDERED: PT OWN MED DRAWER 7, Y5N ONE (09:34)
[2016-09-05] MEDS: THIAMINE HCL 100 MG TABLET (FP) PO SCH (09:39)
[2016-09-05] MEDS: FOLIC ACID 1 MG TABLET (FP) PO SCH (09:39)
[2016-09-05] MEDS: FUROSEMIDE 40 MG TABLET (FP) PO SCH (09:39)
[2016-09-05] MEDS: MULTIVITAMINS (DAILY MVI) TABLET (FP) PO SCH (09:39)
[2016-09-05] MEDS: METHADONE HCL 10 MG TABLET PO SCH (09:39)
[2016-09-05] MEDS: COLLAGENASE CLOSTRIDIUM HIST. 30 GRAMS TUBE TP SCH (11:08)
[2016-09-05] MEDS: VANCOMYCIN 1,250 MG in DEXTROSE 5%-WATER - 250 ML IVPB SCH ×2 (11:14→21:07)
--- NOTE | 2016-09-05 11:17 | PN ---
Physical Exam: SUBJECTIVE: Patient seen and examined at bedside. Leg dressings being changed. OBJECTIVE: Vital Signs Period Temp Pulse Resp BP Sys/Choi Pulse Ox Last 24 Hr 98.0 F-99.2 F 78-87 18-18 106-116/57-71 97 GENERAL: The patient is awake, alert, and fully oriented, in mild distress during dressing change. HEAD: Normal with no signs of trauma. EYES: PERRL, extraocular movements intact, sclera anicteric, conjunctiva clear. No ptosis. LUNGS: Breath sounds equal, clear to auscultation bilaterally, no wheezes, no crackles, no accessory muscle use. HEART: Regular rate and rhythm, S1, S2 without murmur, rub or gallop. ABDOMEN: Distended, 1+ pitting edema up flanks; not tender, normoactive bowel sounds; no guarding, no rebound; well-healed surgical scar RIGHT LOWER EXTREMITY: extensive venous ulcers, beefy red wound beds, mild bleeding with dressing change, no odor LEFT LOWER EXTREMITY: 3+ pitting pedal and lower edema, mild erythema, mild warmth NEUROLOGICAL: Cranial nerves II through XII grossly intact. Normal speech, gait not observed. Laboratory Results - last 24 hr 09/04/16 09/05/16 09/05/16 06:55 06:00 06:00 WBC 3.1 L RBC 3.56 L Hgb 8.0 L Hct 25.5 L MCV 71.6 L MCH 22.4 L MCHC 31.3 L RDW 19.8 H Plt Count 85 L MPV 8.2 Neutrophils % Y Lymphocytes % Y Sodium 140 Potassium 3.4 L Chloride 107 Carbon Dioxide 27 Anion Gap 6 L BUN 7 Creatinine 0.5 L Creat Clearance w eGFR > 60 Random Glucose 86 D Calcium 7.4 L Magnesium Cancelled Total Bilirubin 0.8 AST 60 H ALT 21 Alkaline Phosphatase 238 H D Total Protein 5.9 L Albumin 1.4 L Vancomycin Pre-Dose 09/05/16 08:50 WBC RBC Hgb Hct MCV MCH MCHC RDW Plt Count MPV Neutrophils % Lymphocytes % Sodium Potassium Chloride Carbon Dioxide Anion Gap BUN Creatinine Creat Clearance w eGFR Random Glucose Calcium Magnesium Total Bilirubin AST ALT Alkaline Phosphatase Total Protein Albumin Vancomycin Pre-Dose 8.775 D Current Medications Generic Name Dose Route Start Last Admin Trade Name Freq PRN Reason Stop Dose Admin Collagenase 1 applic 08/29/16 10:00 09/05/16 11:08 Santyl - TP 1 applic DAILY KENDRICK Administration Folic Acid 1 mg 08/31/16 10:00 09/05/16 09:39 Folic Acid - PO 1 mg DAILY KENDRICK Administration Furosemide 40 mg 09/05/16 16:00 Lasix Injection - IVPUSH BID@0600,1400 KENDRICK Heparin Sodium (Porcine) 5,000 unit 09/05/16 12:45 Heparin - SQ BID KENDRICK Piperacillin Sod/Tazobactam 100 mls @ 200 mls/hr 09/02/16 12:15 09/05/16 09:40 Sod 3.375 gm/ Dextrose IVPB 200 mls/hr Q8H-IV KENDRICK Administration Vancomycin HCl 1,250 mg/ 250 mls @ 166.667 mls/hr 09/03/16 22:00 09/05/16 11:14 Dextrose IVPB 166.667 mls/hr BID KENDRICK Administration Protocol Lactulose 20 gm 09/05/16 12:06 Cephulac (Oral Use) PO TID PRN CONSTIPATION Methadone HCl 10 mg 08/29/16 12:45 09/05/16 09:39 Dolophine - PO 10 mg DAILY KENDRICK Administration Multivitamins/Minerals/Vitamin C 1 tab 08/31/16 10:00 09/05/16 09:39 Tab-A-Vit - PO 1 tab DAILY KENDRICK Administration Oxycodone HCl 5 mg 09/05/16 12:19 Roxicodone - PO Q24H PRN PAIN Pantoprazole Sodium 40 mg 09/06/16 10:00 Protonix - PO DAILY KENDRICK Potassium Chloride 40 meq 09/05/16 12:00 K-Dur - PO 09/05/16 18:01 Q6H KENDRICK Thiamine HCl 100 mg 08/31/16 10:00 09/05/16 09:39 Vitamin B1 - PO 100 mg DAILY KENDRICK Administration ASSESSMENT/PLAN: 46 year-old male with a PMH of polysubstance abuse (ETOH, on methadone), esophageal varices, hepatitis, SBO, and RLE chronic wound. Admitted for RLE cellulitis, pneumonia, cirrhosis with portal hypertension, anisarca. Bilateral lower extremity cellulitis Chronic RLE venous ulcers --both legs with cellulitic changes; Tm 100.1, no leukocytosis --continue Vanc (day #6) --collagenase daily to wounds --JAVIER wrap compression to both legs Bilateral HAP --continue Zosyn (day #3) Cirrhosis with portal hypertension Ascites Anisarca Hypoalbuminemia --08/31 US abdomen: consistent with cirrhosis with portal hypertension; small amount of ascites --total bili 2.0 on admission, has trended down to 0.8; alk phos trending up ; albumin 1.4 --edematous from feet to bilateral flanks; escalate Lasix IVP 40mg BID; daily weights --GI consult requested; consider need for paracentesis to r/o SBP given cirrhosis, ascites, fever, and altered mental status h/o esophageal varices --start protonix Polysubstance abuse --opioid, MDMA, alcohol --continue methadone,thiamine, folic acid Hyperammonia Altered mental status --alert and oriented but slow to respond to questions today --start lactulose, titrate to 3-4 BMs per day Hypokalemia --repleted F/E/N Fluids: PO intake adequate Electrolytes: replete as indicated Nutrition: low sodium DVT prophylaxis: subq heparin (platelets 85k), oob, ambulation PT evaluation Daily PT Dispo: continues to require inpatient care. Full Code. Visit type - Emergency Visit Emergency Visit: Yes ED Registration Date: 08/29/16 Care time: The patient presented to the Emergency Department on the above date and was hospitalized for further evaluation of their emergent condition. - New Patient This patient is new to me today: Yes Date on this admission: 09/05/16 - Critical Care Critical Care patient: No
[2016-09-05] MEDS ORDERED: ENOXAPARIN NA (PORCINE) 40 MG/0.4 ML DISP.SYRIN SQ SCH (12:00)
[2016-09-05] MEDS ORDERED: FUROSEMIDE 40 MG/4 ML INJECTABLE VIAL IVPUSH ONE (12:00)
[2016-09-05] MEDS ORDERED: PANTOPRAZOLE 40 MG TABLET (FP) PO ONE (12:03)
[2016-09-05] MEDS ORDERED: LACTULOSE 20 GM/30 ML UDC (FOR ORAL USE ONLY) PO PRN (12:06)
[2016-09-05 12:08] LABS: PLATELET ESTIMATE DECREASED (NORMAL)
--- NOTE | 2016-09-05 12:08 | PN ---
Progress Note (short form) - Note Progress Note: afebrile Vital Signs Period Temp Pulse Resp BP Sys/Choi Pulse Ox Last 24 Hr 98.0 F-99.2 F 78-87 18-18 106-116/57-71 97 cor-rrr lungs decreased bs at bases abd soft,nt ext +edema dressings intact, less erythema cxray bibasilar infiltrates CBC, BMP 09/05/16 06:00 09/05/16 06:00 Microbiology 08/31/16 15:30 Blood - Peripheral Venous Blood Culture - Preliminary NO GROWTH OBTAINED AFTER 96 HOURS, INCUBATION TO CONTINUE FOR 1 DAYS. 08/31/16 15:30 Blood - Peripheral Venous Blood Culture - Preliminary NO GROWTH OBTAINED AFTER 96 HOURS, INCUBATION TO CONTINUE FOR 1 DAYS. 09/02/16 12:58 Blood - Peripheral Venous Blood Culture - Preliminary NO GROWTH OBTAINED AFTER 48 HOURS, INCUBATION TO CONTINUE FOR 3 DAYS. 09/02/16 12:55 Blood - Peripheral Venous Blood Culture - Preliminary NO GROWTH OBTAINED AFTER 48 HOURS, INCUBATION TO CONTINUE FOR 3 DAYS. 08/29/16 02:30 Blood - Peripheral Venous Blood Culture - Final NO GROWTH AFTER 5 DAYS INCUBATION 08/29/16 02:30 Blood - Peripheral Venous Blood Culture - Preliminary Escherichia Vulneris Propionibacterium Acnes Diphtheroid/Corynebacterium#2 Diphtheroid/Corynebacterium 08/29/16 16:30 Urine - Urine Clean Catch Urine Culture - Final NO GROWTH OBTAINED Impression/Plan: Fever and polymicrobial bacteremia- suspect contaminant now with pneumonia cellulitis with venous stasis ulcer-improving vancomycin for cellulitis-day #6 add zosyn for HAP day #3 cirrhosis-meds per primary service will consider change to po antibiotics in am if patient remains afebrile gentle diuresis
--- NOTE | 2016-09-05 12:33 | PN ---
Progress Note (short form) - Note Progress Note: Vascular Surgery Pt seen and examined. Left leg dressing changed. Cont santyl with tesfaye for compression. No need for wound vac. Sen Garcia DO
[2016-09-05] MEDS: HEPARIN NA (PORCINE) 5,000 UNITS/ML 1ML VIAL SQ SCH ×2 (13:43→21:07)
[2016-09-05] MEDS: POTASSIUM CHLORIDE TABS 20 MEQ TABLET.ER (FP) PO SCH ×2 (13:44→17:19)
[2016-09-05] MEDS ORDERED: FUROSEMIDE 40 MG/4 ML INJECTABLE VIAL IVPUSH SCH (16:00)
[2016-09-05] MEDS ORDERED: ACETAMINOPHEN 325 MG TABLET (FP) PO ONE (16:30)
--- NOTE | 2016-09-05 18:30 | CON.GI ---
Consult Consult Specialty:: gastroenterology Referred by:: hospitalist - History of Present Illness History of Present Illness: 46 y/o male with PMH of cirrhosis secondary to alcohol was admitted because of bilateral leg cellulitis and anasarca. He denies, hematemesis,change in sleep pattern, confusion, melena and rectal bleeding. He is on 100mg of aldactone and Lasix 40mg with no improvement of his anasarca. - Past Medical History Gastrointestinal: Yes: Ascites, Esophageal Varices, Other (Hepatitis, umbilical hernia) Hepatobiliary: Yes: Cirrhosis, Hepatitis B Psych: Yes: Addictions (alchohol Current, Heroin revcovery) Rheumatology: Yes: Rheumatoid Arthritis, Other (Arthritis). No: Fibromyalgia - Past Surgical History Past Surgical History: Yes: Colectomy - Alcohol/Substance Use Hx Alcohol Use: Yes Number of Drinks Daily: 3 History of Substance Use: reports: Heroin - Smoking History Smoking history: Current some day smoker Have you smoked in the past 12 months: Yes Aproximately how many cigarettes per day: 3 If you are a former smoker, when did you quit?: 06/11/2013 Home Medications - Allergies Allergies/Adverse Reactions: Allergies Allergy/AdvReac Type Severity Reaction Status Date / Time No Known Allergies Allergy Verified 08/29/16 01:45 - Home Medications Home Medications: Ambulatory Orders Furosemide [Lasix] 40 mg PO DAILY 07/26/16 Methadone [Dolophine -] 10 mg PO DAILY 07/27/16 Collagenase Clostridium Hist. [Santyl -] 1 applic TP DAILY #1 tube 07/29/16 Levofloxacin [Levaquin] 500 mg PO DAILY #7 tablet 07/29/16 Oxycodone HCl/Acetaminophen [Percocet 5-325 mg Tablet] 1 tab PO Q6H #100 tablet MDD 4 08/19/16 Review of Systems - Review of Systems Constitutional: denies: Loss of Appetite Eyes: denies: Blurred Vision HENT: denies: Difficult Swallowing Neck: denies: Decreased ROM Cardiovascular: denies: Chest Pain Respiratory: denies: Cough, SOB on Exertion Gastrointestinal: reports: Bloating. denies: Abdominal Pain, Diarrhea, Dysphagia, Melena, Rectal Bleeding, Vomiting, Vomiting Blood Physical Exam-GI Vital Signs: Vital Signs Temperature 98.5 F 09/05/16 17:55 Pulse Rate 77 07/24/17 17:55 Respiratory Rate 18 09/05/16 17:55 Blood Pressure 116/71 09/05/16 17:55 O2 Sat by Pulse Oximetry (%) 97 09/04/16 21:00 Constitutional: Yes: Obese Eyes: Yes: Conjunctiva Clear HENT: Yes: Atraumatic Neck: Yes: Supple Cardiovascular: Yes: Regular Rate and Rhythm Respiratory: Yes: CTA Bilaterally Gastrointestinal Inspection: Yes: Ascites, Other (mid line scar) ...Palpate: Yes: Soft. No: Firm/Rigid, Guarding, Mass, Pulsatile Mass, Splenomegaly, Tenderness, Tenderness, Epigastium Edema: LLE: 4+, RLE: 4+ Labs: CBC, BMP 09/05/16 06:00 09/05/16 06:00 INR, PTT INR 1.55 (0.82-1.09) H 08/29/16 02:30 Problem List - Problems (1) Bilateral leg edema Assessment/Plan: secondary to Alcohol cirrhosis R> AFP level every 4 mos abdominal ultrasound every 6 mos Cocktail of Albumin, IV lasix and Zaroxolyn then resume lasix 40mg bid then decrease diuretic once leg edema resolved to avoid renal insufficiency Code(s): R60.0 - LOCALIZED EDEMA
[2016-09-05] MEDS: FUROSEMIDE 40 MG/4 ML INJECTABLE VIAL IVPUSH SCH (19:50)
[2016-09-05] MEDS: ALBUMIN HUMAN 25% 12.5 GM/50 ML VIAL IVPB SCH (19:50)
[2016-09-06] MEDS ORDERED: traMADol HCL 50 MG TABLET PO ONE (01:30)
[2016-09-06] MEDS ORDERED: PIPERACILLIN/TAZOBACTAM 3.375 GM VIAL IVPB ONE ×3 (01:35→17:16)
[2016-09-06] MEDS ORDERED: DEXTROSE 5%-WATER 100 ML IVPB ONE ×3 (01:36→17:16)
[2016-09-06] MEDS: PIPERACILLIN/TAZOB 3.375 GM 3.375 GM in DEXTROSE 5%-WATER 100 ML IVPB SCH ×3 (01:37→17:24)
[2016-09-06] MEDS: ALBUMIN HUMAN 25% 12.5 GM/50 ML VIAL IVPB SCH ×2 (06:05→19:43)
[2016-09-06] MEDS: FUROSEMIDE 40 MG/4 ML INJECTABLE VIAL IVPUSH SCH ×2 (06:07→19:43)
[2016-09-06 08:01] LABS: ANION GAP 7 (8-16); CALCIUM 7.6 mg/dL (8.5-10.1); CO2 28 mmol/L (21-32); GLUCOSE,RANDOM 72 mg/dL (74-106); MAGNESIUM 1.8 mg/dL (1.8-2.4)
[2016-09-06 08:02] LABS: CREATININE 0.5 mg/dL (0.7-1.3)
[2016-09-06] MEDS: PANTOPRAZOLE 40 MG TABLET (FP) PO SCH (09:07)
[2016-09-06] MEDS: FOLIC ACID 1 MG TABLET (FP) PO SCH (09:07)
[2016-09-06] MEDS: SPIRONOLACTONE 25 MG TABLET (FP) PO SCH (09:07)
[2016-09-06] MEDS: MULTIVITAMINS (DAILY MVI) TABLET (FP) PO SCH (09:07)
[2016-09-06] MEDS: METHADONE HCL 10 MG TABLET PO SCH (09:07)
[2016-09-06] MEDS: THIAMINE HCL 100 MG TABLET (FP) PO SCH (09:07)
[2016-09-06] MEDS: HEPARIN NA (PORCINE) 5,000 UNITS/ML 1ML VIAL SQ SCH ×2 (09:08→21:28)
[2016-09-06] MEDS ORDERED: FUROSEMIDE 40 MG TABLET (FP) PO SCH (10:00)
[2016-09-06] MEDS: oxyCODONE HCL 5 MG TABLET PO PRN (11:23)
[2016-09-06] MEDS: COLLAGENASE CLOSTRIDIUM HIST. 30 GRAMS TUBE TP SCH (11:24)
--- NOTE | 2016-09-06 13:08 | PN ---
Progress Note (short form) - Note Progress Note: afebrile leg much improved diuresis per GI Vital Signs Period Temp Pulse Resp BP Sys/Choi Pulse Ox Last 24 Hr 97.2 F-100.2 F 68-80 18-20 100-117/50-71 96 cor-rrr lungs decreased bs at bases abd soft,nt ext +edema leg with much less erythema CBC, BMP 09/05/16 06:00 09/06/16 06:00 Microbiology 09/02/16 12:58 Blood - Peripheral Venous Blood Culture - Preliminary NO GROWTH OBTAINED AFTER 96 HOURS, INCUBATION TO CONTINUE FOR 1 DAYS. 09/02/16 12:55 Blood - Peripheral Venous Blood Culture - Preliminary NO GROWTH OBTAINED AFTER 96 HOURS, INCUBATION TO CONTINUE FOR 1 DAYS. 08/31/16 15:30 Blood - Peripheral Venous Blood Culture - Final NO GROWTH AFTER 5 DAYS INCUBATION 08/31/16 15:30 Blood - Peripheral Venous Blood Culture - Final NO GROWTH AFTER 5 DAYS INCUBATION 08/29/16 02:30 Blood - Peripheral Venous Blood Culture - Final Escherichia Vulneris Propionibacterium Acnes Diphtheroid/Corynebacterium#2 Diphtheroid/Corynebacterium 08/29/16 02:30 Blood - Peripheral Venous Blood Culture - Final NO GROWTH AFTER 5 DAYS INCUBATION 08/29/16 16:30 Urine - Urine Clean Catch Urine Culture - Final NO GROWTH OBTAINED Impression/Plan: Fever and polymicrobial bacteremia- suspect contaminant now with pneumonia cellulitis with venous stasis ulcer-resolved vancomycin for cellulitis-day #7- will d/c, much improved zosyn for HAP day #4 cirrhosis-meds per primary service being diuresed will consider change to po antibiotics in am if patient remains afebrile gentle diuresis
[2016-09-06] MEDS: VANCOMYCIN 1,250 MG in DEXTROSE 5%-WATER - 250 ML IVPB SCH (13:10)
--- NOTE | 2016-09-06 17:18 | PN ---
Physical Exam: SUBJECTIVE: Patient seen and examined at bedside. Irritated about decrease in opioid medication. OBJECTIVE: Vital Signs Period Temp Pulse Resp BP Sys/Choi Pulse Ox Last 24 Hr 97.2 F-98.8 F 68-80 18-20 94-117/50-71 96 GENERAL: The patient is awake, alert, and fully oriented, in no acute distress. More alert, animated, sitting up, eating dinner, responding to questions. HEAD: Normal with no signs of trauma. EYES: PERRL, extraocular movements intact, sclera anicteric, conjunctiva clear. No ptosis. LUNGS: Breath sounds equal, clear to auscultation bilaterally, no wheezes, no crackles, no accessory muscle use. HEART: Regular rate and rhythm, S1, S2 without murmur, rub or gallop. ABDOMEN: Distended, 1+ pitting edema up flanks; not tender, normoactive bowel sounds; no guarding, no rebound; well-healed surgical scar RIGHT LOWER EXTREMITY: wounds wrapped, dressings c/d/i LEFT LOWER EXTREMITY: 3+ pitting pedal and lower edema, mild erythema, mild warmth NEUROLOGICAL: Cranial nerves II through XII grossly intact. Normal speech, gait not observed. Laboratory Results - last 24 hr 09/05/16 09/06/16 09/06/16 21:00 06:00 09:45 Sodium 142 Potassium 3.4 L Chloride 107 Carbon Dioxide 28 Anion Gap 7 L BUN 8 Creatinine 0.5 L Random Glucose 72 L Calcium 7.6 L Magnesium 1.8 Vancomycin Pre-Dose 17.118 H* D 5.793 D Active Medications Generic Name Dose Route Start Last Admin Trade Name Rafael PRN Reason Stop Dose Admin Albumin Human 12.5 gm 09/05/16 19:00 09/06/16 06:05 Albumin Human 25% IVPB 09/07/16 07:01 12.5 gm Q12H KENDRICK Administration Collagenase 1 applic 08/29/16 10:00 09/06/16 11:24 Santyl - TP 1 applic DAILY KENDRICK Administration Folic Acid 1 mg 08/31/16 10:00 09/06/16 09:07 Folic Acid - PO 1 mg DAILY KENDRICK Administration Furosemide 40 mg 09/05/16 19:00 09/06/16 06:07 Lasix Injection - IVPUSH 09/07/16 07:01 40 mg Q12H KENDRICK Administration Heparin Sodium (Porcine) 5,000 unit 09/05/16 12:45 09/06/16 09:08 Heparin - SQ 5,000 unit BID KENDRICK Administration Piperacillin Sod/Tazobactam 100 mls @ 200 mls/hr 09/02/16 12:15 09/06/16 09:08 Sod 3.375 gm/ Dextrose IVPB 200 mls/hr Q8H-IV KENDRICK Administration Lactulose 20 gm 09/05/16 12:06 09/05/16 13:43 Cephulac (Oral Use) PO 20 gm TID PRN Administration CONSTIPATION Methadone HCl 10 mg 08/29/16 12:45 09/06/16 09:07 Dolophine - PO 10 mg DAILY KENDRICK Administration Metolazone 5 mg 09/06/16 18:30 Zaroxolyn - PO DAILY [facility] Multivitamins/Minerals/Vitamin C 1 tab 08/31/16 10:00 09/06/16 09:07 Tab-A-Vit - PO 1 tab DAILY KENDRICK Administration Oxycodone HCl 5 mg 09/05/16 12:19 09/06/16 11:23 Roxicodone - PO 5 mg Q24H PRN Administration PAIN Pantoprazole Sodium 40 mg 09/06/16 10:00 09/06/16 09:07 Protonix - PO 40 mg DAILY KENDRICK Administration Spironolactone 100 mg 09/06/16 10:00 09/06/16 09:07 Aldactone - PO 100 mg DAILY KENDRICK Administration Thiamine HCl 100 mg 08/31/16 10:00 09/06/16 09:07 Vitamin B1 - PO 100 mg DAILY KENDRICK Administration ASSESSMENT/PLAN 46 year-old male with a PMH of polysubstance abuse (ETOH, on methadone), esophageal varices, hepatitis, SBO, and RLE chronic wound. Admitted for RLE cellulitis, pneumonia, cirrhosis with portal hypertension, anisarca. Bilateral lower extremity cellulitis Chronic RLE venous ulcers --continue Vanc (day #7, last day) --collagenase daily to wounds --JAVIER wrap compression to both legs Bilateral HAP --continue Zosyn (day #4) Cirrhosis with portal hypertension Ascites Anisarca Hypoalbuminemia --08/31 US abdomen: consistent with cirrhosis with portal hypertension; small amount of ascites --started by GI yesterday on Lasix/albumin/spironolactone --net negative 3L over past 24 hours, will monitor closely h/o esophageal varices --continue protonix Polysubstance abuse --opioid, MDMA, alcohol --continue methadone,thiamine, folic acid --limit oxycodone to once daily 30 minutes before dressing changes Hyperammonia Altered mental status --alert and oriented, mentally clearer today --continue lactulose Hypokalemia --repleted again today F/E/N Fluids: PO intake adequate Electrolytes: replete as indicated Nutrition: low sodium DVT prophylaxis: subq heparin, oob, ambulation PT evaluation Daily PT Dispo: continues to require inpatient care. Full Code. Visit type - Emergency Visit Emergency Visit: Yes ED Registration Date: 08/29/16 Care time: The patient presented to the Emergency Department on the above date and was hospitalized for further evaluation of their emergent condition. - New Patient This patient is new to me today: No - Critical Care Critical Care patient: No
[2016-09-06] MEDS: METOLAZONE 5 MG TABLET PO SCH (18:24)
--- NOTE | 2016-09-06 18:38 | PN ---
GI Progress Note Subjective: hard to assess real weight as different weighing scales are used, he did have good results with cocktail if diuretics, there was a downward trend of BUN ad creatinine, he was just medicated and hard to asses clinically - Objective Vital Signs: Vital Signs Temperature 98.3 F 09/06/16 13:58 Pulse Rate 76 09/06/16 13:58 Respiratory Rate 18 09/06/16 13:58 Blood Pressure 94/52 09/06/16 13:58 O2 Sat by Pulse Oximetry (%) 96 09/05/16 20:29 Constitutional: Well Nourished, Poor Hygeine HENT: Yes: Atraumatic Neck: Yes: Supple Cardiovascular: Yes: Regular Rate and Rhythm Respiratory: Yes: Regular ...Palpate: Yes: Soft. No: Firm/Rigid, Guarding, Hepatomegaly, Mass, Pulsatile Mass, Splenomegaly, Other Edema: LLE: 4+, RLE: 4+ Labs: CBC, BMP 09/05/16 06:00 09/06/16 06:00 INR, PTT INR 1.55 (0.82-1.09) H 08/29/16 02:30 Problem List - Problems (1) Bilateral leg edema Assessment/Plan: continue cocktail of diuretics as oredered then may give Lasix 20mg po tid Code(s): R60.0 - LOCALIZED EDEMA
[2016-09-06] MEDS: POTASSIUM CHLORIDE TABS 20 MEQ TABLET.ER (FP) PO SCH ×3 (19:05→23:48)
[2016-09-07] MEDS ORDERED: PIPERACILLIN/TAZOBACTAM 3.375 GM VIAL IVPB ONE (01:38)
[2016-09-07] MEDS ORDERED: DEXTROSE 5%-WATER 100 ML IVPB ONE (01:39)
[2016-09-07] MEDS: PIPERACILLIN/TAZOB 3.375 GM 3.375 GM in DEXTROSE 5%-WATER 100 ML IVPB SCH (01:50)
[2016-09-07] MEDS: ALBUMIN HUMAN 25% 12.5 GM/50 ML VIAL IVPB SCH (06:01)
[2016-09-07] MEDS: FUROSEMIDE 40 MG/4 ML INJECTABLE VIAL IVPUSH SCH (06:01)
--- NOTE | 2016-09-07 07:59 | PN ---
Progress Note, Physician Chief Complaint: ID Remains on Pip Tazobactam Groans that he is in pain No fever - Current Medication List Current Medications: Active Medications Collagenase (Santyl -) 1 applic TP DAILY [facility] Last Admin: 09/06/16 11:24 Dose: 1 applic Folic Acid (Folic Acid -) 1 mg PO DAILY [facility] Last Admin: 09/06/16 09:07 Dose: 1 mg Heparin Sodium (Porcine) (Heparin -) 5,000 unit SQ BID [facility] Last Admin: 09/06/16 21:28 Dose: 5,000 unit Piperacillin Sod/Tazobactam (Sod 3.375 gm/ Dextrose) 100 mls @ 200 mls/hr IVPB Q8H-IV [facility] Last Admin: 09/07/16 01:50 Dose: 200 mls/hr Lactulose (Cephulac (Oral Use)) 20 gm PO TID PRN PRN Reason: CONSTIPATION Last Admin: 09/05/16 13:43 Dose: 20 gm Methadone HCl (Dolophine -) 10 mg PO DAILY [facility] Last Admin: 09/06/16 09:07 Dose: 10 mg Metolazone (Zaroxolyn -) 5 mg PO DAILY [facility] Last Admin: 09/06/16 18:24 Dose: 5 mg Multivitamins/Minerals/Vitamin C (Tab-A-Vit -) 1 tab PO DAILY [facility] Last Admin: 09/06/16 09:07 Dose: 1 tab Oxycodone HCl (Roxicodone -) 5 mg PO Q24H PRN PRN Reason: PAIN Last Admin: 09/06/16 11:23 Dose: 5 mg Pantoprazole Sodium (Protonix -) 40 mg PO DAILY [facility] Last Admin: 09/06/16 09:07 Dose: 40 mg Spironolactone (Aldactone -) 100 mg PO DAILY [facility] Last Admin: 09/06/16 09:07 Dose: 100 mg Thiamine HCl (Vitamin B1 -) 100 mg PO DAILY [facility] Last Admin: 09/06/16 09:07 Dose: 100 mg - Objective Vital Signs: Vital Signs Temperature 99.0 F 09/07/16 06:33 Pulse Rate 76 09/07/16 06:33 Respiratory Rate 19 09/07/16 06:33 Blood Pressure 114/64 09/07/16 06:33 O2 Sat by Pulse Oximetry (%) 96 09/05/16 20:29 Constitutional: Yes: No Distress Neck: Yes: WNL, Supple Cardiovascular: Yes: S1, S2 Respiratory: Yes: WNL, Regular, CTA Bilaterally, Diminished, Tachypnea Gastrointestinal: Yes: WNL, Soft Edema: Yes Labs: CBC, BMP 09/05/16 06:00 09/06/16 06:00 INR, PTT INR 1.55 (0.82-1.09) H 08/29/16 02:30 Assessment/Plan Laboratory Tests 09/05/16 09/06/16 06:00 06:00 WBC 3.1 L Hgb 8.0 L Hct 25.5 L Plt Count 85 L BUN 8 Creatinine 0.5 L Assessment Cirrhosis varices HAP as per chart Blood culture contaminant Plan Stop Zosyn Ceftin 500mg bid 72 hours ( QT prolonged EKG avoid quinolone) Campos LLOYD
[2016-09-07] MEDS ORDERED: traMADol HCL 50 MG TABLET PO PRN (08:47)
[2016-09-07] MEDS: PANTOPRAZOLE 40 MG TABLET (FP) PO SCH (09:01)
[2016-09-07] MEDS: METHADONE HCL 10 MG TABLET PO SCH (09:01)
[2016-09-07] MEDS: METOLAZONE 5 MG TABLET PO SCH (09:01)
[2016-09-07] MEDS: FOLIC ACID 1 MG TABLET (FP) PO SCH (09:01)
[2016-09-07] MEDS: MULTIVITAMINS (DAILY MVI) TABLET (FP) PO SCH (09:01)
[2016-09-07] MEDS: THIAMINE HCL 100 MG TABLET (FP) PO SCH (09:01)
[2016-09-07] MEDS: HEPARIN NA (PORCINE) 5,000 UNITS/ML 1ML VIAL SQ SCH (09:02)
[2016-09-07] MEDS: SPIRONOLACTONE 25 MG TABLET (FP) PO SCH (09:04)
--- NOTE | 2016-09-07 09:59 | DS ---
Physical Exam: SUBJECTIVE: Patient seen and examined. No fevers/chills. Complaining of pain at wound site. OBJECTIVE: Vital Signs Period Temp Pulse Resp BP Sys/Choi Pulse Ox Last 24 Hr 98.2 F-99.0 F 57-80 18-20 94-114/50-64 PHYSICAL EXAM GENERAL: The patient is awake, alert, and fully oriented, in no acute distress. HEAD: Normal with no signs of trauma. EYES: PERRL, extraocular movements intact, sclera anicteric, conjunctiva clear. ENT: Ears normal, nares patent, oropharynx clear without exudates, moist mucous membranes. NECK: Trachea midline, full range of motion, supple. LUNGS: Breath sounds equal, clear to auscultation bilaterally, no wheezes, no crackles, no accessory muscle use. HEART: Regular rate and rhythm, S1, S2 without murmur, rub or gallop. ABDOMEN: Soft, nontender, nondistended, normoactive bowel sounds, no guarding, no rebound, no hepatosplenomegaly, no masses. EXTREMITIES: 2+ pulses, warm, well-perfused, no edema. NEUROLOGICAL: Cranial nerves II through XII grossly intact. Normal speech, gait not observed. PSYCH: Normal mood, normal affect. SKIN: Warm, dry, normal turgor, no rashes or lesions noted. LABS Microbiology 09/02/16 12:58 Blood - Peripheral Venous Blood Culture - Preliminary NO GROWTH OBTAINED AFTER 96 HOURS, INCUBATION TO CONTINUE FOR 1 DAYS. 09/02/16 12:55 Blood - Peripheral Venous Blood Culture - Preliminary NO GROWTH OBTAINED AFTER 96 HOURS, INCUBATION TO CONTINUE FOR 1 DAYS. 08/31/16 15:30 Blood - Peripheral Venous Blood Culture - Final NO GROWTH AFTER 5 DAYS INCUBATION 08/31/16 15:30 Blood - Peripheral Venous Blood Culture - Final NO GROWTH AFTER 5 DAYS INCUBATION 08/29/16 02:30 Blood - Peripheral Venous Blood Culture - Final Escherichia Vulneris Propionibacterium Acnes Diphtheroid/Corynebacterium#2 Diphtheroid/Corynebacterium 08/29/16 02:30 Blood - Peripheral Venous Blood Culture - Final NO GROWTH AFTER 5 DAYS INCUBATION 08/29/16 16:30 Urine - Urine Clean Catch Urine Culture - Final NO GROWTH OBTAINED IMAGING: CXR 08/29: No active pulmonary disease Vascular u/s: No DVT bilaterally Abd u/s: Cirrhosis with portal HTN CXR 09/02: Left retrocardiac and right base infiltrates HOSPITAL COURSE: 46 year old male with liver cirrhosis/Hep C, esophageal varices , ETOH abuse, polysubstance abuse, chronic right lower extremity would, (recent admission for cellulitis, left AMA), who presented to the ED with worsening right lower extremity pain and intermittent fevers. He was started on Cefazolin and Vancomycin. He was seen by wound care/vascular surgery and provided with Collagenase and dressings. Blood cultures sent on 08/28 showed a polymicrobial bacteremia, suspected to be contaminant. Repeat cultures from 08/31 showed no growth. On 09/01, he spiked fevers (TMax 101.4) and continued to spike fevers though . CXR on 09/02 showed bilateral infiltrates. Antibiotics were broadened to Zosyn/Vancomycin. Fevers resolved. Wound appearance greatly improved. Today in consultation with ID, patient can be discharged today on po Ceftin with VNS services for dressing changes. He will continue Lasix and methadone as an outpatient. Followup instructions and return precautions reviewed. Date of Admission:08/29/16 Date of Discharge: 09/07/16 Minutes to complete discharge: 35 Discharge Summary Reason For Visit: CELLULITIS Current Active Problems Cellulitis (Acute) Cellulitis of right leg (Acute) Venous stasis ulcer of right lower extremity (Acute) Bilateral leg edema (Chronic) Liver failure (Chronic) Condition: Stable - Instructions Diet, Activity, Other Instructions: -Continue Collagenase/dressing changes with Visiting Nurse Services -Continue Ceftin (an antibiotic) as prescribed and ibuprofen as needed for pain with Tramadol if needed for severe pain -Follow up with your primary care doctor as well as the Wound Center (contact information enclosed) within one week -Do not drink alcohol -Return here for fevers, increased redness around the wounds, or any other concerning symptoms Referrals: Garcia Arteaga [Primary Care Provider] - 1 Week Sen Garcia MD [Staff Physician] - Disposition: VNS/HOME HEALTH CARE - Home Medications Comprehensive Discharge Medication List: Ambulatory Orders Furosemide [Lasix] 40 mg PO DAILY 07/26/16 Methadone [Dolophine -] 10 mg PO DAILY 07/27/16 Cefuroxime Axetil [Ceftin -] 500 mg PO Q12H #6 tablet 09/07/16 Collagenase Clostridium Hist. [Santyl -] 1 applic TP DAILY #1 tube 09/07/16 Ibuprofen [Motrin -] 600 mg PO QID PRN #15 tablet 09/07/16 This patient is new to me today: No Emergency Visit: Yes ED Registration Date: 08/29/16 Care time: The patient presented to the Emergency Department on the above date and was hospitalized for further evaluation of their emergent condition. Critical Care patient: No - Discharge Referral Referred to [facility] Med P.C.: No
[2016-09-07] MEDS ORDERED: CEFUROXIME AXETIL 500 MG TABLET PO SCH (10:00)
[2016-09-07] MEDS: COLLAGENASE CLOSTRIDIUM HIST. 30 GRAMS TUBE TP SCH (10:31)
[2016-09-07 11:14] VITALS: BP 109/67; PULSE 83; TEMP 98.2
--- NOTE | 2016-09-07 11:16 | HOSP ---
Subjective - Review of Symptoms Subjective: Controlled prescription for percocet sent to pharmacy with 3 day supply Istop checked reference #[id number] Physical Examination Vital Signs: Vital Signs Temperature 98.2 F 09/07/16 11:13 Pulse Rate 83 09/07/16 11:13 Respiratory Rate 18 09/07/16 11:13 Blood Pressure 109/67 09/07/16 11:13 O2 Sat by Pulse Oximetry (%) 96 09/05/16 20:29 Labs: CBC, BMP 09/05/16 06:00 09/06/16 06:00
== END 2016-09-07 11:43 | disposition home health service (06) | DRG 383 ==
LOC: JER 00:33 → JERBED 04:48 → J6S 08:50
PROVIDERS: ADMIT Internal Medicine; ATTEND Registered Nurse Emergency
PROC: HZ2ZZZZ Detoxification Services for Substance Abuse Treatment (ICD-10-PCS; principal; 2016-08-29)
DX: L03.115 Cellulitis of right lower limb (principal); K70.31 Alcoholic cirrhosis of liver with ascites; F10.230 Alcohol dependence with withdrawal, uncomplicated; F11.10 Opioid abuse, uncomplicated; B19.20 Unspecified viral hepatitis C without hepatic coma; E87.2 Acidosis; L97.809 Non-pressure chronic ulcer of other part of unspecified lower leg with unspecified severity; I87.8 Other specified disorders of veins; I85.10 Secondary esophageal varices without bleeding; B96.89 Other specified bacterial agents as the cause of diseases classified elsewhere; K42.9 Umbilical hernia without obstruction or gangrene; M06.80 Other specified rheumatoid arthritis, unspecified site; F17.210 Nicotine dependence, cigarettes, uncomplicated; F19.10 Other psychoactive substance abuse, uncomplicated; E87.6 Hypokalemia; E83.42 Hypomagnesemia; D61.818 Other pancytopenia; E88.09 Other disorders of plasma-protein metabolism, not elsewhere classified; E72.20 Disorder of urea cycle metabolism, unspecified; J18.9 Pneumonia, unspecified organism; R60.0 Localized edema; R41.82 Altered mental status, unspecified; R78.81 Bacteremia
CPT/HCPCS: 36415; 71010-TC; 76700-TC; 80048; 80053; 81003; 82140; 82550; 82553; 83605; 83735; 84100; 84484; 85025; 85610; 85730; 86850; 86900; 86901; 87040; 87086; 87186; 93005; 93010; 93970-TC; 97116-GP; 97161-GP; 99282-25; G0480; J1644; P9047

== ENCOUNTER 2016-09-29 00:32 | Inpatient (IN) | payer OTHER ==
--- NOTE | 2016-09-29 01:04 | PDOC ---
History of Present Illness - General History Source: Patient Exam Limitations: No Limitations - History of Present Illness Initial Comments: 09/29/16 01:16 The patient is a 46 year old male with a significant past medical history of HCV , cirrhosis, varices, ETOH abuse, opiate abuse, and chronic leg edema who presents to the ED with worsening leg edema since earlier today. Patient reports bilateral leg edema that is worse from his baseline. He states his right leg is worse than his left and reports pain, erythema, and bleeding wounds on his right lower extremity. Patient denies fevers or chills. Denies nausea, vomiting, or diarrhea. Denies chest pain or shortness of breath. Denies any other symptoms. <Kisha Leo - Last Filed: 09/29/16 02:03> - General History Source: Patient <Rios Riddle - Last Filed: 09/29/16 19:33> - General Chief Complaint: Edema Stated Complaint: LEG PAIN Time Seen by Provider: 09/29/16 00:59 Past History <Kisha Leo - Last Filed: 09/29/16 02:03> - Past Medical History Anemia: No Asthma: No Cancer: No Cardiac Disorders: No CVA: No COPD: No CHF: No Dementia: No Diabetes: No GI Disorders: Yes (GI BLEED) Disorders: No HTN: Yes Hypercholesterolemia: No Liver Disease: Yes (HEPATITS C) Seizures: No Thyroid Disease: No - Surgical History Abdominal Surgery: Yes (GI BLEED/HERNIA) Appendectomy: No Cardiac Surgery: No Cholecystectomy: No Lung Surgery: No Neurologic Surgery: Yes Orthopedic Surgery: No - Immunization History Immunization Up to Date: No - Psycho/Social/Smoking Cessation Hx Anxiety: No Suicidal Ideation: No Smoking Status: Yes Smoking History: Unknown if ever smoked Have you smoked in the past 12 months: No Number of Cigarettes Smoked Daily: 3 If you are a former smoker, when did you quit?: 06/11/2013 Information on smoking cessation initiated: No 'Breaking Loose' booklet given: 07/26/16 Hx Alcohol Use: No Drug/Substance Use Hx: No Substance Use Type: Opiates Hx Substance Use Treatment: Yes (MMTP) <Rios Riddle - Last Filed: 09/29/16 19:33> - Past Medical History Allergies/Adverse Reactions: Allergies Allergy/AdvReac Type Severity Reaction Status Date / Time No Known Allergies Allergy Verified 09/29/16 00:43 Home Medications: Ambulatory Orders Furosemide [Lasix] 40 mg PO DAILY 07/26/16 Methadone [Dolophine -] 10 mg PO DAILY 07/27/16 Collagenase Clostridium Hist. [Santyl -] 1 applic TP DAILY #1 tube 09/07/16 Ibuprofen [Motrin -] 600 mg PO QID PRN #15 tablet 09/07/16 Oxycodone HCl/Acetaminophen [Percocet 5-325 mg Tablet] 1 tab PO Q4H PRN #18 tablet MDD 30 09/07/16 Pantoprazole Sodium [Protonix] 40 mg PO DAILY 09/29/16 Review of Systems - Review of Systems Able to Perform ROS?: Yes Comments:: 09/29/16 01:16 CONSTITUTIONAL: No reported: Fever, Chills, Diaphoresis, Generalized Weakness, Malaise, Loss of Appetite HEENT: No reported: Rhinorrhea, Nasal Congestion, Throat Pain, Throat Swelling, Difficulty Swallowing, Mouth Swelling, Ear Pain, Eye Pain, Visual Changes CARDIOVASCULAR: No reported: Chest Pain, Syncope, Palpitations, Irregular Heart Rate, Lightheadedness, Peripheral Edema RESPIRATORY: No reported: Cough, Shortness of Breath, SOB with Exertion, Orthopnea, Wheezing , Stridor, Hemoptysis GASTROINTESTINAL: No reported: Abdominal pain, Abdominal Distension, Nausea, Vomiting, Diarrhea, Constipation, Melena, Hematochezia GENITOURINARY: No reported: Dysuria, Frequency, Urgency, Hesitancy, Flank Pain, Genital Pain MUSCULOSKELETAL: + leg edema, pain, erythema and bleeding No reported: Back pain, Neck Pain SKIN: No reported: Rash, Itching, Pallor HEMEATOLOGIC/IMMUNOLOGIC: No reported: Easy Bleeding, Easy Bruising, Lymphadenopathy, Frequent infections ENDOCRINE: No reported: Unexplained Weight Gain, Unexplained Weight Loss, Heat Intolerance , Cold Intolerance NEUROLOGIC: No reported: Headache, Focal Weakness, Paresthesias, Vertigo, Lightheadedness, Unsteady Gait, Seizure, Mental Status Changes, Incontinence PSYCHIATRIC: No reported: Anxiety, Depression All Other Systems: Reviewed and Negative <Kisha Leo - Last Filed: 09/29/16 02:03> *Physical Exam - Vital Signs Last Vital Signs Temp Pulse Resp BP Pulse Ox 97.1 F L 111 H 20 109/69 98 09/29/16 00:44 09/29/16 00:44 09/29/16 00:44 09/29/16 00:44 09/29/16 00:44 - Physical Exam Comments: 09/29/16 01:16 GENERAL: Well developed, well nourished. Awake and alert. No acute distress. HEENT: Normocephalic, atraumatic. PERRLA, EOMI. No conjunctival pallor. Sclera are non- icteric. Moist mucous membranes. Oropharynx is clear. NECK: Supple. Full ROM. No JVD. Carotid pulses 2+ and symmetric, without bruits. No thyromegaly. No lymphadenopathy. CARDIOVASCULAR: + tachycardic Regular rhythm. No murmurs, rubs, or gallops. Distal pulses are 2+ and symmetric. PULMONARY: + Bibasilar crackles No evidence of respiratory distress. Lungs clear to auscultation bilaterally. No wheezing, rales. ABDOMINAL: + obese Soft. Non-tender. Non-distended. No rebound or guarding. No organomegaly. Normoactive bowel sounds. MUSCULOSKELETAL Normal range of motion at all joints. No bony deformities or tenderness. No CVA tenderness. EXTREMITIES: + Bilateral edema to both lower extremities, right greater than left. Right lower extremity wounds with bleeding. No cyanosis. No clubbing. No calf tenderness. SKIN: Warm. No rashes. No jaundice. NEUROLOGICAL: Alert, awake, appropriate. Cranial nerves 2-12 intact. No deficits to light touch and temperature in face, upper extremities and lower extremities. No motor deficits in the in face, upper extremities and lower extremities. Normoreflexic in the upper and lower extremities. Normal speech. Toes are down- going bilaterally. Gait is normal without ataxia. PSYCHIATRIC: Cooperative. Good eye contact. Appropriate mood and affect. <Kisha Leo - Last Filed: 09/29/16 02:03> - Vital Signs Last Vital Signs Temp Pulse Resp BP Pulse Ox 97.1 F L 111 H 20 109/69 98 09/29/16 00:44 09/29/16 00:44 09/29/16 00:44 09/29/16 00:44 09/29/16 00:44 <Rios Riddle - Last Filed: 09/29/16 19:33> Heart Score/ECG Review #1 08/17/17 02:04 Vent. rate 95 bpm MI interval 136 ms QRS duration 82 ms Normal sinus rhythm <Kisha Leo - Last Filed: 09/29/16 02:03> ED Treatment Course - LABORATORY CBC & Chemistry Diagram: 09/29/16 02:10 09/29/16 11:45 <Rios Riddle - Last Filed: 09/29/16 19:33> Medical Decision Making - Medical Decision Making 09/29/16 19:33 Dr. Riddle: The scribe's documentation has been prepared under my direction and personally reviewed by me in its entirery. I confirm that the note above accurately reflects all work, treatment, procedures, and medical decision making performed by me. <Rios Riddle - Last Filed: 09/29/16 19:33> *DC/Admit/Observation/Transfer - Attestations Scribe Attestion: 09/29/16 01:16 Documentation prepared by Kisha Leo, acting as medical investigator for Rios Riddle MD <Kisha Leo - Last Filed: 09/29/16 02:03> - Discharge Dispostion Admit: Yes <Rios Riddle - Last Filed: 09/29/16 19:33> Diagnosis at time of Disposition: Bilateral leg edema, Venous stasis ulcer of right lower extremity - Referrals
[2016-09-29 02:29] LABS: BASOPHIL 0.7 % (0-2.0); EOSINOPHIL 2.2 % (0-4.5); MCHC 31.6 g/dl (32.0-35.9); MEAN CELL VOLUME 72.8 fl (80-96); MEAN PLT VOLUME 8.4 fl (7.5-11.1); NEUTROPHILS 63.8 % (42.8-82.8); PLATELET COUNT 115 K/MM3 (134-434); RDW 21.8 % (11.9-15.9)
[2016-09-29 02:42] LABS: INR 1.71 (0.82-1.09)
[2016-09-29 04:03] LABS: ALBUMIN 1.6 g/dl (3.4-5.0); ANION GAP 10 (8-16); BILIRUBIN,TOTAL 1.1 mg/dL (0.2-1.0); CALCIUM 7.3 mg/dL (8.5-10.1); CO2 24 mmol/L (21-32); CREATININE 0.4 mg/dL (0.7-1.3); GLUCOSE,RANDOM 90 mg/dL (74-106); SGOT/AST 53 U/L (15-37); SGPT/ALT 25 U/L (12-78); TOT PROT 6.3 g/dl (6.4-8.2)
[2016-09-29 04:06] LABS: ALK PHOS 112 U/L (45-117); CPK 221 IU/L (39-308); TROPONIN I < 0.02 ng/ml (0.00-0.05)
[2016-09-29] MEDS ORDERED: POTASSIUM CHLORIDE TABS 20 MEQ TABLET.ER (FP) PO ONE ×2 (04:12→04:18)
[2016-09-29] MEDS ORDERED: AMPICILLIN NA/SULBACTAM NA 3 GM in SODIUM CHLORIDE 100 ML IVPB ONE (04:48)
[2016-09-29] MEDS ORDERED: oxyCODONE HCL 5 MG TABLET PO PRN (04:48)
[2016-09-29] MEDS ORDERED: IBUPROFEN 600 MG TABLET (FP) PO PRN (04:50)
[2016-09-29] MEDS ORDERED: traMADol HCL 50 MG TABLET ONE (05:36)
[2016-09-29] MEDS: traMADol HCL 50 MG TABLET PO PRN ×2 (05:36→18:45)
--- NOTE | 2016-09-29 06:19 | HP ---
CHIEF COMPLAINT: LEG WOUND PCP: Garcia Arteaga NP, Vascular: Coty Garcia HISTORY OF PRESENT ILLNESS: This is a 46 year old male with a past medical history of cirrhosis, ETOH, varices, Hep C, chronic wound to RLE who presented to the ED with pain to RLE and non healing wound. Pt reports redness and swelling increasing x 2 weeks. He presented because the pain became "unbearable". ER course was notable for: (1) WBC 5.0 Recent Travel: pt denies PAST MEDICAL HISTORY: Hep C cirrhosis varices EtOH SBO PAST SURGICAL HISTORY: partial SB resection facial trauma-fx orbit s/p ORIF with metal plate Social History: Smokin-2 cig/day Alcohol: 2 beers a day, last drink with dinner last nght Drugs: pt denies current use. past h/o heroin use, on methadone program [facility] [place] Allergies No Known Allergies Allergy (Verified 09/29/16 00:43) HOME MEDICATIONS: 3 Medication Instructions Recorded Furosemide [Lasix] 40 mg PO DAILY 07/26/16 Methadone [Dolophine -] 10 mg PO DAILY 07/27/16 Collagenase Clostridium Hist. 1 applic TP DAILY #1 tube 09/07/16 [Santyl -] Ibuprofen [Motrin -] 600 mg PO QID PRN #15 tablet 09/07/16 Oxycodone HCl/Acetaminophen 1 tab PO Q4H PRN #18 tablet MDD 30 09/07/16 [Percocet 5-325 mg Tablet] Pantoprazole Sodium [Protonix] 40 mg PO DAILY 09/29/16 REVIEW OF SYSTEMS CONSTITUTIONAL: Absent: fever, chills, diaphoresis, generalized weakness, malaise, loss of appetite, weight change HEENT: Absent: rhinorrhea, nasal congestion, throat pain, throat swelling, difficulty swallowing, mouth swelling, ear pain, eye pain, visual changes CARDIOVASCULAR: Present: peripheral edema Absent: chest pain, syncope, palpitations, irregular heart rate, lightheadedness RESPIRATORY: Absent: cough, shortness of breath, dyspnea with exertion, orthopnea, wheezing, stridor, hemoptysis GASTROINTESTINAL: Absent: abdominal pain, abdominal distension, nausea, vomiting, diarrhea, constipation, melena, hematochezia GENITOURINARY: Absent: dysuria, frequency, urgency, hesitancy, hematuria, flank pain, genital pain MUSCULOSKELETAL: Present: leg pain Absent: myalgia, arthralgia, joint swelling, back pain, neck pain SKIN: Absent: rash, itching, pallor HEMATOLOGIC/IMMUNOLOGIC: Absent: easy bleeding, easy bruising, lymphadenopathy, frequent infections ENDOCRINE: Absent: unexplained weight gain, unexplained weight loss, heat intolerance, cold intolerance NEUROLOGIC: Absent: headache, focal weakness or paresthesias, dizziness, unsteady gait, seizure, mental status changes, bladder or bowel incontinence PSYCHIATRIC: Absent: anxiety, depression, suicidal or homicidal ideation, hallucinations. PHYSICAL EXAMINATION Vital Signs - 24 hr 3 09/29/16 09/29/16 00:44 05:46 Temperature 97.1 F L 99.5 F Pulse Rate 111 H Pulse Rate [ 108 H Apical] Respiratory 20 18 Rate Blood Pressure 109/69 Blood Pressure 135/83 [Left Arm] O2 Sat by Pulse 98 98 Oximetry (%) GENERAL: Awake, alert, and fully oriented, in no acute distress. HEAD: Normal with no signs of trauma. EYES: Pupils equal, round and reactive to light, extraocular movements intact, sclera anicteric, conjunctiva clear. No lid lag. EARS, NOSE, THROAT: Ears normal, nares patent, oropharynx clear without exudates. Moist mucous membranes. NECK: Normal range of motion, supple without lymphadenopathy, JVD, or masses. LUNGS: Breath sounds equal, clear to auscultation bilaterally. No wheezes, and no crackles. No accessory muscle use. HEART: Regular rate and rhythm, normal S1 and S2 without murmur, rub or gallop. ABDOMEN: Soft, nontender, not distended, normoactive bowel sounds, no guarding, no rebound, no masses. No hepatomegaly or splenomegaly. MUSCULOSKELETAL: Normal range of motion at all joints. No bony deformities or tenderness. No CVA tenderness. UPPER EXTREMITIES: 2+ pulses, warm, well-perfused. No cyanosis. No clubbing. No peripheral edema. LOWER EXTREMITIES: 2+ pulses, warm, well-perfused. No calf tenderness. 2+ peripheral edema RLE, 1+ LLE, + venous ulcer to RLE 5.8cm x 8cm x 0.2cm, wound bed beefy red, no slough or eschar. majority of entire lower leg noted with desquamation of skin, wound beds beefy red, DC serosanguinous. Existing xeroform dresing dry and adherant to wound in places, loosened with NS. dried dc noted to foot and betwen toes. All cleansed with NS and redressed with xeroform and bulky kerlix dressing NEUROLOGICAL: Cranial nerves II-XII intact. Normal speech. Normal gait. PSYCHIATRIC: Cooperative. Good eye contact. Appropriate mood and affect. SKIN: Warm, dry, normal turgor, no rashes or lesions noted, normal capillary refill. Laboratory Results - last 24 hr 3 09/29/16 09/29/16 09/29/16 02:10 02:10 02:10 WBC 5.0 D RBC 4.20 Hgb 9.7 L D Hct 30.6 L D MCV 72.8 L MCH 23.0 L MCHC 31.6 L RDW 21.8 H D Plt Count 115 L D MPV 8.4 Neutrophils % 63.8 Lymphocytes % 18.2 Monocytes % 15.1 H Eosinophils % 2.2 Basophils % 0.7 INR 1.71 H Sodium Cancelled Potassium Cancelled Chloride Cancelled Carbon Dioxide Cancelled Anion Gap Cancelled BUN Cancelled Creatinine Cancelled Creat Clearance w eGFR Cancelled Random Glucose Cancelled Calcium Cancelled Magnesium Cancelled Total Bilirubin Cancelled AST Cancelled ALT Cancelled Alkaline Phosphatase Cancelled Creatine Kinase Cancelled Creatine Kinase Index CK-MB (CK-2) Troponin I Cancelled B-Natriuretic Peptide Cancelled Total Protein Cancelled Albumin Cancelled Anti-A Titer Blood Type Antibody Screen Spec Expiration Date 3 09/29/16 09/29/16 09/29/16 02:10 03:23 03:23 WBC RBC Hgb Hct MCV MCH MCHC RDW Plt Count MPV Neutrophils % Lymphocytes % Monocytes % Eosinophils % Basophils % INR Sodium 138 Potassium 3.3 L Chloride 104 Carbon Dioxide 24 Anion Gap 10 BUN 5 L D Creatinine 0.4 L Creat Clearance w eGFR > 60 Random Glucose 90 D Calcium 7.3 L Magnesium Total Bilirubin 1.1 H D AST 53 H ALT 25 Alkaline Phosphatase 112 D Creatine Kinase 221 Creatine Kinase Index 0.7 CK-MB (CK-2) 1.743 Troponin I < 0.02 B-Natriuretic Peptide Total Protein 6.3 L Albumin 1.6 L Anti-A Titer Cancelled Blood Type Cancelled B NEGATIVE Antibody Screen Cancelled Negative Spec Expiration Date Cancelled ECG NSR, rate 95, QTC [address]/T wave changes CXR final read pending, haziness noted at costophrenic angle, + no acute infiltrates noted ASSESSMENT/PLAN: 46yM with PMH HCV, cirrhosis, ETOH, varices, chronic leg edema presented to the ED with increased swelling and leg pain. He is being admitted for RLE cellulitis. RLE cellulitis with vascular ulcer - start unasyn 3g q6h - cont xeroform dressing daily, more frequently if needed - vascular consult; consider ID consult - change lasix to IV QD Cirrhosis - alcohol cessation encouraged - monitor platelets closely on heparin. ETOH dependence - start librium protocol - start folate and thiamine DVT PPX - Heparin 5000u TID, monitor platelets and dc if dropping FEN - no IVF, tolerating po - BMP 12pm with Mg - low sodium diet Dispo: Pt currently requires inpatient management of his emergent condition. Visit type - Emergency Visit Emergency Visit: Yes ED Registration Date: 09/29/16 Care time: The patient presented to the Emergency Department on the above date and was hospitalized for further evaluation of their emergent condition. - New Patient This patient is new to me today: Yes Date on this admission: 09/29/16 - Critical Care Critical Care patient: No
[2016-09-29] MEDS ORDERED: chlordiazePOXIDE HCL 25 MG CAPSULE PO PRN (06:23)
[2016-09-29 07:43] LABS: ANISOCYTOSIS 1+; MICROCYTOSIS 1+
[2016-09-29] MEDS ORDERED: COLLAGENASE CLOSTRIDIUM HIST. 30 GRAMS TUBE TP SCH (10:00)
[2016-09-29] MEDS ORDERED: FUROSEMIDE 40 MG TABLET (FP) PO SCH (10:00)
[2016-09-29] MEDS ORDERED: AMPICILLIN NA/SULBACTAM NA 100 ML IVPB SCH (11:00)
[2016-09-29] MEDS: FOLIC ACID 1 MG TABLET (FP) PO SCH (11:08)
[2016-09-29] MEDS: FUROSEMIDE 40 MG/4 ML INJECTABLE VIAL IVPUSH SCH ×2 (11:08→11:10)
[2016-09-29] MEDS: PANTOPRAZOLE 40 MG TABLET (FP) PO SCH (11:08)
[2016-09-29] MEDS: THIAMINE HCL 100 MG TABLET (FP) PO SCH (11:08)
[2016-09-29] MEDS: chlordiazePOXIDE HCL 25 MG CAPSULE PO SCH ×3 (11:09→22:12)
[2016-09-29] MEDS: HEPARIN NA (PORCINE) 5,000 UNITS/ML 1ML VIAL SQ SCH ×2 (11:09→18:37)
[2016-09-29] MEDS ORDERED: AMPICILLIN NA/SULBACTAM NA 3 GM in SODIUM CHLORIDE 100 ML IVPB SCH (11:45)
[2016-09-29] MEDS ORDERED: AMPICILLIN NA/SULBACTAM NA 3 GM in DEXTROSE 5%-WATER - 100 ML IVPB SCH (11:45)
--- NOTE | 2016-09-29 11:48 | PN ---
Progress Note (short form) - Note Progress Note: ID consult dictated imp/reccd 46 year old man with liver cirrhosis, chronic RLE venous stasis with ulcer, active ETOH use, on methadone recent admission in July and August for bleeding from leg ulcer last admission had intermittent fevers and was treated for pneumonia now readmitted with severe leg pain and bleeding suspect this is primarily a wound care issue- not sure he is adherent with wound care f/u some mild cellulitis ancef with switch to po keflex agree with evaluation by Dr Garcia consider diuresis consider ammonia level- mild asterixis on exam somewhat sleepy but appropriate when awoken hiv negative 03/2016, would document hep c status as well d/w hospitalist Problem List - Problems (1) Cellulitis of right leg Code(s): L03.115 - CELLULITIS OF RIGHT LOWER LIMB (2) Venous stasis ulcer of right lower extremity Code(s): I83.019 - VARICOSE VEINS OF RIGHT LOWER EXTREMITY W ULCER OF UNSP SITE (3) Liver cirrhosis Code(s): K74.60 - UNSPECIFIED CIRRHOSIS OF LIVER Qualifiers: Hepatic cirrhosis type: alcoholic cirrhosis
[2016-09-29] MEDS: METHADONE HCL 10 MG TABLET PO SCH (12:18)
[2016-09-29 12:24] LABS: ANION GAP 8 (8-16); CALCIUM 7.3 mg/dL (8.5-10.1); CO2 25 mmol/L (21-32); CREATININE 0.4 mg/dL (0.7-1.3); GLUCOSE,RANDOM 94 mg/dL (74-106); MAGNESIUM 1.9 mg/dL (1.8-2.4)
[2016-09-29] MEDS ORDERED: ceFAZolin SODIUM 1 GM VIAL ONE ×2 (13:01→18:31)
[2016-09-29] MEDS ORDERED: DEXTROSE 5%-WATER - 50 ML IVPB ONE ×2 (13:01→18:31)
[2016-09-29] MEDS: CEFAZOLIN 1 GM in DEXTROSE 5%-WATER - 50 ML IVPB SCH ×2 (13:04→18:37)
--- NOTE | 2016-09-29 13:17 | CONS ---
DATE OF CONSULTATION: 09/29/2016 This is a 46-year-old man who I saw in July and again in August. He has a history of liver cirrhosis and alcohol use. He has a chronic ulcer and venous stasis of his right lower extremity. Was admitted both in July and again in August with bleeding from the ulcer and pain. His last admission he had intermittent fever, was treated for cellulitis and pneumonia with resolution. He now returns again with pain in his leg accompanied by some bleeding. He denies any abdominal pain. He denies any chest pain or cough. He has no fevers or chills. PAST MEDICAL HISTORY: Is notable for GI bleed, hypertension, liver cirrhosis, chronic leg edema, chronic ulcer of the right leg, esophageal varices and polysubstance use. SOCIAL HISTORY: Is notable for hernia repair in the past. He has had a partial small bowel obstruction. He has a history of facial trauma with a fracture to his orbits in the past. SOCIAL HISTORY: He still drinks 3 to 4 beers daily, his last drink was 2 days ago. 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 He smokes 1 to 2 cigarettes daily. ALLERGIES: He has no known drug allergies. MEDICATIONS AN OUTPATIENT: Include furosemide, Methadone, , Motrin, Percocet and Protonix. FAMILY HISTORY: Noncontributory. REVIEW OF SYSTEMS: It is notable for edema and pain in his legs. He reports he takes Lasix intermittently at home. PHYSICAL EXAMINATION: General: He is sleepy but he is easily arousable. He is afebrile. Vital Signs: T-max is 99.5, pulse is 97, blood pressure 133/73, respiratory rate is 22, his weight is 200 pounds, he is satting 98% on room air. HEENT: He is normocephalic. His eyes are anicteric. Neck: Supple. Lungs: Clear to auscultation. Heart: Regular rate and rhythm. Abdomen: Slightly distended. Extremities: He has bilateral pitting edema of his legs extending up to his thighs. He has a beefy red shallow ulcer on the anterior part of most of his right lower extremity. He has a slightly deeper venous stasis ulcer on the posterior aspect of the right lower leg. He has some swelling. The right lower extremity is larger than his left. His legs are warm. There is no associated purulence and there is some mild erythema. LABORATORY DATA: His labs are notable for a white count of 5, hemoglobin is 9.7, platelets are 150, INR is 1.7, BUN 5 and creatinine 0.4, bilirubin is 1.1. His urinalysis is negative and in March of this year he was tested and is HIV negative. He had a chest x-ray which shows no infiltrate and a Duplex of his leg that is negative for DVT. IN SUMMARY: This is a 46-year-old jamal with liver cirrhosis, still actively drinking, admitted with bleeding and pain in his leg which I suspect is primarily a wound care issue. It does not sound like he is adherent with wound care follow up. He does have some mild cellulitis, could treat him with Ancef, will switch to oral Keflex. Would agree with evaluation by Dr. Garcia and consider diuresis, consider an ammonia level. Addendum to his physical exam is that he has mild asterixis. He is somewhat sleepy but appropriate when awoken. HIV negative in March 2016. Would document Hepatitis C status as well. This was all discussed with the hospitalist. MICHAEL CARRILLO M.D. [id number]
--- NOTE | 2016-09-29 14:53 | EKG ---
Test Reason : Blood Pressure : / mmHG Vent. Rate : 095 BPM Atrial Rate : 095 BPM P-R Int : 136 ms QRS Dur : 082 ms QT Int : 380 ms P-R-T Axes : 049 -03 018 degrees QTc Int : 477 ms NORMAL SINUS RHYTHM NORMAL ECG WHEN COMPARED WITH ECG OF 29-AUG-2016 02:11, NO SIGNIFICANT CHANGE WAS FOUND Confirmed by KENN WEBB MD ([id number]) on 09/29/2016 2:52:54 PM Referred By: Confirmed By:KENN WEBB MD
--- NOTE | 2016-09-29 17:23 | CONSULT ---
Consult - Past Medical History Gastrointestinal: Yes: Ascites, Esophageal Varices, Other (Hepatitis, umbilical hernia) Hepatobiliary: Yes: Cirrhosis, Hepatitis B Psych: Yes: Addictions (alchohol Current, Heroin revcovery) Rheumatology: Yes: Rheumatoid Arthritis, Other (Arthritis). No: Fibromyalgia - Past Surgical History Past Surgical History: Yes: Colectomy - Alcohol/Substance Use Hx Alcohol Use: No Number of Drinks Daily: 3 History of Substance Use: reports: Heroin - Smoking History Smoking history: Unknown if ever smoked Have you smoked in the past 12 months: No Aproximately how many cigarettes per day: 3 If you are a former smoker, when did you quit?: 06/11/2013 Home Medications - Allergies Allergies/Adverse Reactions: Allergies Allergy/AdvReac Type Severity Reaction Status Date / Time No Known Allergies Allergy Verified 09/29/16 00:43 - Home Medications Home Medications: Ambulatory Orders Furosemide [Lasix] 40 mg PO DAILY 07/26/16 Methadone [Dolophine -] 10 mg PO DAILY 07/27/16 Collagenase Clostridium Hist. [Santyl -] 1 applic TP DAILY #1 tube 09/07/16 Ibuprofen [Motrin -] 600 mg PO QID PRN #15 tablet 09/07/16 Oxycodone HCl/Acetaminophen [Percocet 5-325 mg Tablet] 1 tab PO Q4H PRN #18 tablet MDD 30 09/07/16 Pantoprazole Sodium [Protonix] 40 mg PO DAILY 09/29/16 Physical Exam Vital Signs: Vital Signs Temperature 98.8 F 09/29/16 14:49 Pulse Rate 75 09/29/16 14:49 Respiratory Rate 20 09/29/16 14:49 Blood Pressure 91/47 09/29/16 14:49 O2 Sat by Pulse Oximetry (%) 98 09/29/16 05:46 Labs: CBC, BMP 09/29/16 11:45 Assessment/Plan Vascular surgery The patient is a 46 year old male with a significant past medical history of HCV , cirrhosis, varices, ETOH abuse, opiate abuse, and chronic leg edema who presents to the ED with worsening leg edema since earlier today. Patient reports bilateral leg edema that is worse from his baseline. He states his right leg is worse than his left and reports pain, erythema, and bleeding wounds on his right lower extremity. Patient denies fevers or chills. Denies nausea, vomiting, or diarrhea. Denies chest pain or shortness of breath. Denies any other symptoms. <Kisha Leo - Last Filed: 09/29/16 02:03> - General History Source: Patient <Rios Riddle - Last Filed: 09/29/16 04:37> - General Chief Complaint: Edema Stated Complaint: LEG PAIN Time Seen by Provider: 09/29/16 00:59 Past History <Kisha Leo - Last Filed: 09/29/16 02:03> - Past Medical History Anemia: No Asthma: No Cancer: No Cardiac Disorders: No CVA: No COPD: No CHF: No Dementia: No Diabetes: No GI Disorders: Yes (GI BLEED) Disorders: No HTN: Yes Hypercholesterolemia: No Liver Disease: Yes (HEPATITS C) Seizures: No Thyroid Disease: No - Surgical History Abdominal Surgery: Yes (GI BLEED/HERNIA) Appendectomy: No Cardiac Surgery: No Cholecystectomy: No Lung Surgery: No Neurologic Surgery: Yes Orthopedic Surgery: No - Immunization History Immunization Up to Date: No - Psycho/Social/Smoking Cessation Hx Anxiety: No Suicidal Ideation: No Smoking Status: Yes Smoking History: Unknown if ever smoked Have you smoked in the past 12 months: No Number of Cigarettes Smoked Daily: 3 If you are a former smoker, when did you quit?: 06/11/2013 Information on smoking cessation initiated: No 'Breaking Loose' booklet given: 07/26/16 Hx Alcohol Use: No Drug/Substance Use Hx: No Substance Use Type: Opiates Hx Substance Use Treatment: Yes ([facility]) <Rios Riddle - Last Filed: 09/29/16 04:37> - Past Medical History Allergies/Adverse Reactions: Allergies Allergy/AdvReac Type Severity Reaction Status Date / Time No Known Allergies Allergy Verified 09/29/16 00:43 Home Medications: Ambulatory Orders Furosemide [Lasix] 40 mg PO DAILY 07/26/16 Methadone [Dolophine -] 10 mg PO DAILY 07/27/16 Collagenase Clostridium Hist. [Santyl -] 1 applic TP DAILY #1 tube 09/07/16 Ibuprofen [Motrin -] 600 mg PO QID PRN #15 tablet 09/07/16 Oxycodone HCl/Acetaminophen [Percocet 5-325 mg Tablet] 1 tab PO Q4H PRN #18 tablet MDD 30 09/07/16 Pantoprazole Sodium [Protonix] 40 mg PO DAILY 09/29/16 PE head - NC/at Lung - CTA Heart - RRR abd - soft,nt,nd ext - RLE -- posterior calf wound, ant calf wound. weeping , slough A/P Right calf wounds Pt does not follow in wound care clinic Santyl to wounds with tesfaye for compression Sen alexander DO
[2016-09-29 17:40] VITALS: BMI 34.3
[2016-09-29] MEDS: COLLAGENASE CLOSTRIDIUM HIST. 30 GRAMS TUBE TP SCH (18:37)
[2016-09-30] MEDS ORDERED: ceFAZolin SODIUM 1 GM VIAL ONE ×3 (00:57→16:56)
[2016-09-30] MEDS ORDERED: DEXTROSE 5%-WATER - 50 ML IVPB ONE ×3 (00:57→16:56)
[2016-09-30] MEDS: CEFAZOLIN 1 GM in DEXTROSE 5%-WATER - 50 ML IVPB SCH ×3 (02:32→17:02)
[2016-09-30] MEDS: traMADol HCL 50 MG TABLET PO PRN ×2 (02:43→21:27)
[2016-09-30] MEDS: HEPARIN NA (PORCINE) 5,000 UNITS/ML 1ML VIAL SQ SCH ×4 (04:06→21:28)
[2016-09-30] MEDS: chlordiazePOXIDE HCL 25 MG CAPSULE PO SCH ×4 (05:15→22:12)
[2016-09-30 07:52] LABS: BASOPHIL 0.8 % (0-2.0); EOSINOPHIL 4.7 % (0-4.5); MCH 22.7 pg (25.7-33.7); MCHC 31.1 g/dl (32.0-35.9); MEAN CELL VOLUME 73.1 fl (80-96); MEAN PLT VOLUME 8.4 fl (7.5-11.1); NEUTROPHILS 57.9 % (42.8-82.8); PLATELET COUNT 100 K/MM3 (134-434); RDW 22.1 % (11.9-15.9); WHITE BLOOD COUNT 4.1 K/mm3 (4.0-10.0)
[2016-09-30 08:10] LABS: ANION GAP 6 (8-16); CALCIUM 7.2 mg/dL (8.5-10.1); CO2 27 mmol/L (21-32); CREATININE 0.4 mg/dL (0.7-1.3); GLUCOSE,RANDOM 67 mg/dL (74-106)
[2016-09-30] MEDS: FOLIC ACID 1 MG TABLET (FP) PO SCH (11:18)
[2016-09-30] MEDS: THIAMINE HCL 100 MG TABLET (FP) PO SCH (11:18)
[2016-09-30] MEDS: PANTOPRAZOLE 40 MG TABLET (FP) PO SCH (11:18)
[2016-09-30] MEDS: METHADONE HCL 10 MG TABLET PO SCH (11:18)
[2016-09-30] MEDS: FUROSEMIDE 40 MG/4 ML INJECTABLE VIAL IVPUSH SCH (11:19)
[2016-09-30] MEDS: COLLAGENASE CLOSTRIDIUM HIST. 30 GRAMS TUBE TP SCH (11:19)
--- NOTE | 2016-09-30 12:15 | PN ---
Physical Exam: SUBJECTIVE: Patient seen and examined. He has pain to his R leg. Denies withdrawal symptoms. OBJECTIVE: Vital Signs Period Temp Pulse Resp BP Sys/Choi Pulse Ox Last 24 Hr 97.2 F-99.6 F 70-77 20-20 91-121/43-64 99 PE Neuro: alert, awake, cn 2-12intact, mental slowing Pulm: diminished bases CV: s1 s2 rrr Abd: s nt nd + bs Ext: R pedal edema, edema +1 up to thigh, R lower ext erythema, red, posterior calf with slough Laboratory Results - last 24 hr 09/29/16 09/30/16 09/30/16 11:45 06:00 06:00 WBC 4.1 RBC 3.74 L Hgb 8.5 L D Hct 27.3 L MCV 73.1 L MCH 22.7 L MCHC 31.1 L RDW 22.1 H Plt Count 100 L MPV 8.4 Neutrophils % 57.9 Lymphocytes % 19.5 Monocytes % 17.1 H Eosinophils % 4.7 H D Basophils % 0.8 Sodium 139 Potassium 3.8 Chloride 106 Carbon Dioxide 25 Anion Gap 8 BUN 5 L Creatinine 0.4 L Random Glucose 94 Calcium 7.3 L Magnesium 1.9 Cancelled 09/30/16 06:00 WBC RBC Hgb Hct MCV MCH MCHC RDW Plt Count MPV Neutrophils % Lymphocytes % Monocytes % Eosinophils % Basophils % Sodium 140 Potassium 3.5 Chloride 107 Carbon Dioxide 27 Anion Gap 6 L BUN 7 D Creatinine 0.4 L Random Glucose 67 L D Calcium 7.2 L Magnesium 2.0 Active Medications Generic Name Dose Route Start Last Admin Trade Name Shenq PRN Reason Stop Dose Admin Chlordiazepoxide HCl 25 mg 09/30/16 11:00 09/30/16 11:18 Librium - PO 10/01/16 05:01 25 mg [id number] KENDRICK Administration Chlordiazepoxide HCl 15 mg 10/01/16 11:00 Librium - PO 10/02/16 05:01 [id number] KENDRICK Chlordiazepoxide HCl 25 mg 09/29/16 06:23 Librium - PO 10/02/16 06:22 Q4H PRN WITHDRAWAL(CONT SUBST) Collagenase 1 applic 09/29/16 17:30 09/30/16 11:19 Santyl - TP 1 gm DAILY KENDRICK Administration Folic Acid 1 mg 09/29/16 10:00 09/30/16 11:18 Folic Acid - PO 1 mg DAILY KENDRICK Administration Furosemide 40 mg 09/29/16 06:30 09/30/16 11:19 Lasix Injection - IVPUSH 40 mg DAILY KENDRICK Administration Heparin Sodium (Porcine) 5,000 unit 09/30/16 04:07 09/30/16 06:32 Heparin - SQ 5,000 unit TID KENDRICK Administration Cefazolin Sodium 1 gm/ 50 mls @ 100 mls/hr 09/29/16 12:15 09/30/16 11:18 Dextrose IVPB 100 mls/hr Q8H-IV KENDRICK Administration Methadone HCl 10 mg 09/29/16 11:45 09/30/16 11:18 Dolophine - PO 10 mg DAILY KENDRICK Administration Pantoprazole Sodium 40 mg 09/29/16 10:00 09/30/16 11:18 Protonix - PO 40 mg DAILY KENDRICK Administration Thiamine HCl 100 mg 09/29/16 10:00 09/30/16 11:18 Vitamin B1 - PO 100 mg DAILY KENDRICK Administration Tramadol HCl 50 mg 09/29/16 04:53 09/30/16 02:43 Ultram - PO 50 mg Q6H PRN Administration PAIN Assessment: 46 year old male with pmhx cirrhosis, ETOH, esophageal varices, Hep C, chronic wound to RLE admitted with pain to RLE and non healing wound. Plan: 1. RLE acute on chronic non healing wound - Continue ancef with keflex transition on discharge - Daily dressing changes with santyl - Will need outpt wound care 2. ETOH abuse - Continue librium taper - Folic acid - Thaimine - Methadone 10mg daily - ammonia level pendin 3. Lower ext edema - Improving with IV diuresis - If worsens will give albumin, lasix, zaroxolyn 4. Esophageal varices/Portal HTN - Start low dose nadolol - Protonix 40mg daily 5. Thrombocytopenia/prolonged INR - Likely d/t cirrhosis Visit type - Emergency Visit Emergency Visit: Yes ED Registration Date: 09/29/16 Care time: The patient presented to the Emergency Department on the above date and was hospitalized for further evaluation of their emergent condition. - New Patient This patient is new to me today: Yes Date on this admission: 09/30/16 - Critical Care Critical Care patient: No - Discharge Referral Physician Referral: Sen Garcia DO ([facility])
[2016-09-30] MEDS ORDERED: PT OWN MED DRAWER 7, Y5N ONE ×2 (14:24→14:59)
[2016-09-30] MEDS: NADOLOL 20 MG TABLET (FP) PO SCH (15:21)
--- NOTE | 2016-09-30 16:47 | PN ---
Progress Note (short form) - Note Progress Note: sleepy no complaints Vital Signs Period Temp Pulse Resp BP Sys/Choi Pulse Ox Last 24 Hr 97.2 F-99.6 F 70-79 18-20 102-121/43-66 99 cor-rrr lungs cler abd soft,nt ext +edema less erythema of RLE CBC, BMP 09/30/16 06:00 09/30/16 06:00 Microbiology 09/29/16 12:13 Urine - Urine Clean Catch Urine Culture - Final Contaminated: Please Repeat 09/29/16 02:10 Blood - Peripheral Venous Blood Culture - Preliminary NO GROWTH OBTAINED AFTER 24 HOURS, INCUBATION TO CONTINUE FOR 4 DAYS. 09/29/16 02:12 Blood - Peripheral Venous Blood Culture - Preliminary NO GROWTH OBTAINED AFTER 24 HOURS, INCUBATION TO CONTINUE FOR 4 DAYS. a/p suspect this is primarily a wound care issue- not sure he is adherent with wound care f/u some mild cellulitis ancef with switch to po keflex agree with evaluation by Dr Garcia consider diuresis consider ammonia level- mild asterixis on exam somewhat sleepy but appropriate when awoken hiv negative 03/2016, would document hep c status as well d/w hospitalist will sign off cellulitis is improving can switch to po keflex when discharged Problem List - Problems (1) Cellulitis of right leg Code(s): L03.115 - CELLULITIS OF RIGHT LOWER LIMB (2) Venous stasis ulcer of right lower extremity Code(s): I83.019 - VARICOSE VEINS OF RIGHT LOWER EXTREMITY W ULCER OF UNSP SITE (3) Liver cirrhosis Code(s): K74.60 - UNSPECIFIED CIRRHOSIS OF LIVER Qualifiers: Hepatic cirrhosis type: alcoholic cirrhosis
[2016-09-30] MEDS ORDERED: LACTULOSE 20 GM/30 ML UDC (FOR ORAL USE ONLY) PO ONE (19:10)
[2016-10-01] MEDS ORDERED: DEXTROSE 5%-WATER - 50 ML IVPB ONE ×3 (02:15→17:15)
[2016-10-01] MEDS ORDERED: ceFAZolin SODIUM 1 GM VIAL ONE ×3 (02:15→17:15)
[2016-10-01] MEDS: CEFAZOLIN 1 GM in DEXTROSE 5%-WATER - 50 ML IVPB SCH ×3 (02:38→17:18)
[2016-10-01] MEDS: traMADol HCL 50 MG TABLET PO PRN (03:21)
[2016-10-01] MEDS: chlordiazePOXIDE HCL 25 MG CAPSULE PO SCH (06:02)
[2016-10-01] MEDS: HEPARIN NA (PORCINE) 5,000 UNITS/ML 1ML VIAL SQ SCH ×3 (06:02→21:35)
[2016-10-01 09:12] LABS: ALBUMIN 1.3 g/dl (3.4-5.0); ANION GAP 8 (8-16); BASOPHIL 1.5 % (0-2.0); BILIRUBIN,TOTAL 1.1 mg/dL (0.2-1.0); CALCIUM 7.3 mg/dL (8.5-10.1); CO2 27 mmol/L (21-32); CREATININE 0.4 mg/dL (0.7-1.3); EOSINOPHIL 5.3 % (0-4.5); GLUCOSE,RANDOM 68 mg/dL (74-106); MCH 23.4 pg (25.7-33.7); MCHC 32.5 g/dl (32.0-35.9); MEAN CELL VOLUME 72.2 fl (80-96); MEAN PLT VOLUME 8.7 fl (7.5-11.1); NEUTROPHILS 55.7 % (42.8-82.8); PLATELET COUNT 126 K/MM3 (134-434); RDW 22.5 % (11.9-15.9); SGOT/AST 42 U/L (15-37); SGPT/ALT 21 U/L (12-78); TOT PROT 5.4 g/dl (6.4-8.2); WHITE BLOOD COUNT 3.3 K/mm3 (4.0-10.0)
[2016-10-01 09:13] LABS: ALK PHOS 111 U/L (45-117)
[2016-10-01] MEDS ORDERED: POTASSIUM CHLORIDE ORAL LIQUID 20 MEQ/15 ML PO ONE (10:00)
[2016-10-01] MEDS ORDERED: PT OWN MED DRAWER 7, Y5N ONE (10:36)
[2016-10-01] MEDS: METHADONE HCL 10 MG TABLET PO SCH (10:38)
[2016-10-01] MEDS: THIAMINE HCL 100 MG TABLET (FP) PO SCH (10:38)
[2016-10-01] MEDS: FOLIC ACID 1 MG TABLET (FP) PO SCH (10:38)
[2016-10-01] MEDS: PANTOPRAZOLE 40 MG TABLET (FP) PO SCH (10:38)
[2016-10-01] MEDS: FUROSEMIDE 40 MG/4 ML INJECTABLE VIAL IVPUSH SCH (10:40)
[2016-10-01] MEDS: NADOLOL 20 MG TABLET (FP) PO SCH (10:40)
[2016-10-01] MEDS: chlordiazePOXIDE 5 MG CAPSULE PO SCH ×3 (11:03→22:48)
[2016-10-01] MEDS: COLLAGENASE CLOSTRIDIUM HIST. 30 GRAMS TUBE TP SCH (11:39)
--- NOTE | 2016-10-01 16:47 | PN ---
Physical Exam: SUBJECTIVE: Patient seen and examined. He is sleepy but arousable. No acute issues OBJECTIVE: Vital Signs Period Temp Pulse Resp BP Sys/Choi Pulse Ox Last 24 Hr 98.3 F-99.3 F 67-77 16-20 101-139/57-66 96-97 PE Neuro: drowsy, arousable, cn 2-12intact Pulm: clear anteriorly CV: s1 s2 rrr no mrg Abd: s nt nd + bs Ext: R pedal edema improved, trace, RLE wound dressed, LLE edema resolved Laboratory Results - last 24 hr 09/30/16 10/01/16 10/01/16 06:00 08:00 08:00 WBC 3.3 L RBC 3.76 L Hgb 8.8 L Hct 27.2 L MCV 72.2 L MCH 23.4 L MCHC 32.5 RDW 22.5 H Plt Count 126 L D MPV 8.7 Neutrophils % 55.7 Lymphocytes % 20.5 Monocytes % 17.0 H Eosinophils % 5.3 H Basophils % 1.5 Sodium 141 Potassium 3.4 L Chloride 106 Carbon Dioxide 27 Anion Gap 8 BUN 6 L Creatinine 0.4 L Creat Clearance w eGFR > 60 Random Glucose 68 L Calcium 7.3 L Total Bilirubin 1.1 H AST 42 H D ALT 21 Alkaline Phosphatase 111 Total Protein 5.4 L Albumin 1.3 L Hepatitis C Antibody >11.0 H Active Medications Generic Name Dose Route Start Last Admin Trade Name Freq PRN Reason Stop Dose Admin Chlordiazepoxide HCl 15 mg 10/01/16 11:00 10/01/16 11:03 Librium - PO 10/02/16 05:01 15 mg [id number] KENDRICK Administration Chlordiazepoxide HCl 25 mg 09/29/16 06:23 Librium - PO 10/02/16 06:22 Q4H PRN WITHDRAWAL(CONT SUBST) Collagenase 1 applic 09/29/16 17:30 10/01/16 11:39 Santyl - TP 1 applic DAILY KENDRICK Administration Folic Acid 1 mg 09/29/16 10:00 10/01/16 10:38 Folic Acid - PO 1 mg DAILY KENDRICK Administration Furosemide 40 mg 09/29/16 06:30 10/01/16 10:40 Lasix Injection - IVPUSH 40 mg DAILY KENDRICK Administration Heparin Sodium (Porcine) 5,000 unit 09/30/16 04:07 10/01/16 13:56 Heparin - SQ 5,000 unit TID KENDRICK Administration Cefazolin Sodium 1 gm/ 50 mls @ 100 mls/hr 09/29/16 12:15 10/01/16 10:40 Dextrose IVPB 100 mls/hr Q8H-IV KENDRICK Administration Methadone HCl 10 mg 09/29/16 11:45 10/01/16 10:38 Dolophine - PO 10 mg DAILY KENDRICK Administration Nadolol 10 mg 09/30/16 13:15 10/01/16 10:40 Corgard - PO 10 mg DAILY KENDRICK Administration Pantoprazole Sodium 40 mg 09/29/16 10:00 10/01/16 10:38 Protonix - PO 40 mg DAILY KENDRICK Administration Thiamine HCl 100 mg 09/29/16 10:00 10/01/16 10:38 Vitamin B1 - PO 100 mg DAILY KENDRICK Administration Tramadol HCl 50 mg 09/29/16 04:53 10/01/16 03:21 Ultram - PO 50 mg Q6H PRN Administration PAIN Assessment: 46 year old male with pmhx cirrhosis, ETOH, esophageal varices, Hep C, chronic wound to RLE admitted with pain to RLE and non healing wound. Plan: 1. RLE acute on chronic non healing wound - Continue ancef with keflex transition tomorrow - Daily dressing changes with santyl - Will need outpt wound care 2. ETOH abuse - Continue librium taper ends tomorrow - Folic acid - Thaimine - Methadone 10mg daily - s/p lactulose with BM 3. Lower ext edema - Improved - Stop IV lasix - Resume home lasix PO tomorrow 4. Esophageal varices/Portal HTN - Nadolol 10mg daily - Protonix 40mg daily 5. Thrombocytopenia/prolonged INR - Likely d/t cirrhosis Visit type - Emergency Visit Emergency Visit: Yes ED Registration Date: 09/29/16 Care time: The patient presented to the Emergency Department on the above date and was hospitalized for further evaluation of their emergent condition. - New Patient This patient is new to me today: No - Critical Care Critical Care patient: No
[2016-10-02] MEDS ORDERED: ceFAZolin SODIUM 1 GM VIAL ONE ×4 (01:16→21:12)
[2016-10-02] MEDS ORDERED: DEXTROSE 5%-WATER - 50 ML IVPB ONE ×4 (01:17→21:12)
[2016-10-02] MEDS: CEFAZOLIN 1 GM in DEXTROSE 5%-WATER - 50 ML IVPB SCH ×3 (01:42→17:48)
[2016-10-02] MEDS: traMADol HCL 50 MG TABLET PO PRN (02:26)
[2016-10-02] MEDS: HEPARIN NA (PORCINE) 5,000 UNITS/ML 1ML VIAL SQ SCH ×3 (06:20→21:38)
[2016-10-02] MEDS: chlordiazePOXIDE 5 MG CAPSULE PO SCH (06:20)
[2016-10-02] MEDS: FUROSEMIDE 40 MG TABLET (FP) PO SCH (09:47)
[2016-10-02] MEDS: METHADONE HCL 10 MG TABLET PO SCH (09:47)
[2016-10-02] MEDS: PANTOPRAZOLE 40 MG TABLET (FP) PO SCH (09:47)
[2016-10-02] MEDS: FOLIC ACID 1 MG TABLET (FP) PO SCH (09:47)
[2016-10-02] MEDS: THIAMINE HCL 100 MG TABLET (FP) PO SCH (09:47)
[2016-10-02] MEDS: NADOLOL 20 MG TABLET (FP) PO SCH (10:40)
[2016-10-02] MEDS ORDERED: PT OWN MED DRAWER 7, Y5N ONE ×2 (11:17→11:18)
[2016-10-02] MEDS: COLLAGENASE CLOSTRIDIUM HIST. 30 GRAMS TUBE TP SCH (14:06)
[2016-10-02] MEDS ORDERED: LACTULOSE 20 GM/30 ML UDC (FOR ORAL USE ONLY) PO ONE (17:02)
--- NOTE | 2016-10-02 17:04 | PN ---
Physical Exam: SUBJECTIVE: Patient seen and examined. Pt says he is in pain and he doesn't want to go home. Events: - Per RN 2 person transfer to wheelchair OBJECTIVE: Vital Signs Period Temp Pulse Resp BP Sys/Choi Pulse Ox Last 24 Hr 98 F-98.9 F 65-90 17-20 101-142/56-65 96 PE Neuro: drowsy, arousable, cn 2-12intact Pulm: CTAB CV: s1 s2 rrr no mrg Abd: s nt nd + bs Ext: R pedal edema improved, trace, RLE wound dressed, LLE edema resolved Active Medications Generic Name Dose Route Start Last Admin Trade Name Freq PRN Reason Stop Dose Admin Collagenase 1 applic 09/29/16 17:30 10/02/16 14:06 Santyl - TP 1 applic DAILY KENDRICK Administration Folic Acid 1 mg 09/29/16 10:00 10/02/16 09:47 Folic Acid - PO 1 mg DAILY KENDRICK Administration Furosemide 40 mg 10/02/16 10:00 10/02/16 09:47 Lasix - PO 40 mg DAILY KENDRICK Administration Heparin Sodium (Porcine) 5,000 unit 09/30/16 04:07 10/02/16 14:06 Heparin - SQ 5,000 unit TID KENDRICK Administration Cefazolin Sodium 1 gm/ 50 mls @ 100 mls/hr 09/29/16 12:15 10/02/16 09:48 Dextrose IVPB 100 mls/hr Q8H-IV KENDRICK Administration Lactulose 20 gm 10/02/16 17:02 Cephulac (Oral Use) PO 10/02/16 17:03 ONCE ONE Methadone HCl 10 mg 09/29/16 11:45 10/02/16 09:47 Dolophine - PO 10 mg DAILY KENDRICK Administration Nadolol 10 mg 09/30/16 13:15 10/02/16 10:40 Corgard - PO 10 mg DAILY KENDRICK Administration Pantoprazole Sodium 40 mg 09/29/16 10:00 10/02/16 09:47 Protonix - PO 40 mg DAILY KENDRICK Administration Thiamine HCl 100 mg 09/29/16 10:00 10/02/16 09:47 Vitamin B1 - PO 100 mg DAILY KENDRICK Administration Tramadol HCl 50 mg 09/29/16 04:53 10/02/16 02:26 Ultram - PO 50 mg Q6H PRN Administration PAIN Assessment: 46 year old male with pmhx cirrhosis, ETOH, esophageal varices, Hep C, chronic wound to RLE admitted with pain to RLE and non healing wound. Plan: 1. RLE acute on chronic non healing wound - Increased pain with dressing changes - Continue cefazolin (day 4) - Daily dressing changes with santyl - Will need outpt wound care - Physical therapy, pt unable to bear weight 2. ETOH abuse - Completed librium taper - Folic acid - Thaimine - Methadone 10mg daily 3. Lower ext edema - Improved - Continue Po lasix 40mg daily 4. Esophageal varices/Portal HTN/cirrhosis - Nadolol 10mg daily - Protonix 40mg daily 5. Mild hepatic encephalopathy - Start lactulose 20mg TID 6. Thrombocytopenia/prolonged INR - Likely d/t cirrhosis Visit type - Emergency Visit Emergency Visit: Yes ED Registration Date: 09/29/16 Care time: The patient presented to the Emergency Department on the above date and was hospitalized for further evaluation of their emergent condition. - New Patient This patient is new to me today: No - Critical Care Critical Care patient: No
[2016-10-02] MEDS: LACTULOSE 20 GM/30 ML UDC (FOR ORAL USE ONLY) PO SCH (21:37)
[2016-10-03] MEDS: CEFAZOLIN 1 GM in DEXTROSE 5%-WATER - 50 ML IVPB SCH ×3 (01:29→17:51)
[2016-10-03] MEDS: HEPARIN NA (PORCINE) 5,000 UNITS/ML 1ML VIAL SQ SCH ×3 (06:28→22:54)
[2016-10-03 09:02] LABS: ANION GAP 10 (8-16); CALCIUM 7.5 mg/dL (8.5-10.1); CO2 26 mmol/L (21-32); CREATININE 0.5 mg/dL (0.7-1.3); GLUCOSE,RANDOM 60 mg/dL (74-106)
[2016-10-03] MEDS ORDERED: ceFAZolin SODIUM 1 GM VIAL ONE ×3 (09:59→21:29)
[2016-10-03] MEDS ORDERED: POTASSIUM CHLORIDE ORAL LIQUID 20 MEQ/15 ML PO SCH (10:00)
[2016-10-03] MEDS ORDERED: DEXTROSE 5%-WATER - 50 ML IVPB ONE ×3 (10:00→21:29)
[2016-10-03] MEDS: LACTULOSE 20 GM/30 ML UDC (FOR ORAL USE ONLY) PO SCH (10:12)
[2016-10-03] MEDS: POTASSIUM CHLORIDE ORAL LIQUID 20 MEQ/15 ML PO SCH ×2 (10:13→15:31)
[2016-10-03] MEDS: METHADONE HCL 10 MG TABLET PO SCH (10:14)
[2016-10-03] MEDS: THIAMINE HCL 100 MG TABLET (FP) PO SCH (10:14)
[2016-10-03] MEDS: PANTOPRAZOLE 40 MG TABLET (FP) PO SCH (10:14)
[2016-10-03] MEDS: FUROSEMIDE 40 MG TABLET (FP) PO SCH (10:14)
[2016-10-03] MEDS: FOLIC ACID 1 MG TABLET (FP) PO SCH (10:14)
[2016-10-03] MEDS: NADOLOL 20 MG TABLET (FP) PO SCH (10:15)
[2016-10-03] MEDS: traMADol HCL 50 MG TABLET PO PRN (10:30)
[2016-10-03] MEDS: COLLAGENASE CLOSTRIDIUM HIST. 30 GRAMS TUBE TP SCH (10:47)
--- NOTE | 2016-10-03 12:36 | PN ---
Physical Exam: SUBJECTIVE: Patient seen and examined. He complains of pain, he knows he is at [facility]. Per RN pt will not straighten his leg OBJECTIVE: Vital Signs Period Temp Pulse Resp BP Sys/Choi Pulse Ox Last 24 Hr 98 F-99.0 F 72-90 17-20 100-142/56-71 PE Neuro: drowsy, arousable, responds to touch and verbal stimuli Pulm: CTAB CV: s1 s2 rrr no mrg Abd: s nt nd + bs, midline incision healed Ext: R pedal edema improved, trace, RLE wound dressed, LLE edema resolved Skin: Tattoo Laboratory Results - last 24 hr 10/03/16 06:00 Sodium 143 Potassium 3.3 L Chloride 107 Carbon Dioxide 26 Anion Gap 10 BUN 7 Creatinine 0.5 L D Random Glucose 60 L Calcium 7.5 L Active Medications Generic Name Dose Route Start Last Admin Trade Name Freq PRN Reason Stop Dose Admin Collagenase 1 applic 09/29/16 17:30 10/03/16 10:47 Santyl - TP 1 applic DAILY KENDRICK Administration Folic Acid 1 mg 09/29/16 10:00 10/03/16 10:14 Folic Acid - PO 1 mg DAILY KENDRICK Administration Furosemide 40 mg 10/02/16 10:00 10/03/16 10:14 Lasix - PO 40 mg DAILY KENDRICK Administration Heparin Sodium (Porcine) 5,000 unit 09/30/16 04:07 10/03/16 06:28 Heparin - SQ 5,000 unit TID KENDRICK Administration Cefazolin Sodium 1 gm/ 50 mls @ 100 mls/hr 09/29/16 12:15 10/03/16 10:13 Dextrose IVPB 100 mls/hr Q8H-IV KENDRICK Administration Lactulose 20 gm 10/02/16 22:00 10/03/16 10:12 Cephulac (Oral Use) PO 20 gm BID KENDRICK Administration Methadone HCl 10 mg 09/29/16 11:45 10/03/16 10:14 Dolophine - PO 10 mg DAILY KENDRICK Administration Nadolol 10 mg 09/30/16 13:15 10/03/16 10:15 Corgard - PO 10 mg DAILY KENDRICK Administration Pantoprazole Sodium 40 mg 09/29/16 10:00 10/03/16 10:14 Protonix - PO 40 mg DAILY KENDRICK Administration Potassium Chloride 40 meq 10/03/16 10:00 10/03/16 10:13 Potassium Chloride Oral Liquid PO 10/03/16 14:01 40 meq BID@1000,1400 KENDRICK Administration Thiamine HCl 100 mg 09/29/16 10:00 10/03/16 10:14 Vitamin B1 - PO 100 mg DAILY KENDRICK Administration Tramadol HCl 50 mg 09/29/16 04:53 10/03/16 10:30 Ultram - PO 50 mg Q6H PRN Administration PAIN Assessment: 46 year old male with pmhx cirrhosis, ETOH, esophageal varices, Hep C, chronic wound to RLE admitted with pain to RLE and non healing wound. Plan: 1. RLE acute on chronic non healing wound - Continue cefazolin (day 5) - Daily dressing changes with santyl - Will need outpt wound care - SNF placement unable to bear weight 2. ETOH abuse - Completed librium taper - Folic acid - Thaimine - Decrease methadone 5mg daily 3. Mild hepatic encephalopathy - Lactulose 20mg TID - Decrease methadoone 5mg daily - Stop ultram 4. Lower ext edema - Lasix 40mg daily - s/p IV diuresis 5. Esophageal varices/Portal HTN/cirrhosis - Nadolol 10mg daily - Protonix 40mg daily 6. Thrombocytopenia/prolonged INR - Likely d/t cirrhosis 7. Hypokalemia - Replete 40meq x2 q4hr 8. PPX - Daily physical therapy - Heparin BID - Daily wound care Dispo: - Medically cleared, awaiting SNF placement or home PT, pt unable to assist himself or walk with walker Visit type - Emergency Visit Emergency Visit: Yes ED Registration Date: 09/29/16 Care time: The patient presented to the Emergency Department on the above date and was hospitalized for further evaluation of their emergent condition. - New Patient This patient is new to me today: No - Critical Care Critical Care patient: No - Discharge Referral Referred to [facility] Med P.C[facility] No
[2016-10-03] MEDS ORDERED: METHADONE HCL 10 MG TABLET PO SCH (16:18)
[2016-10-03] MEDS ORDERED: LACTULOSE 20 GM/30 ML UDC (FOR ORAL USE ONLY) PO SCH (22:00)
[2016-10-03] MEDS: LACTULOSE 20 GM/30 ML UDC (FOR RECTAL USE ONLY) PR SCH (22:54)
[2016-10-03] MEDS: RIFAXIMIN 550 MG TABLET (UD) PO SCH (22:55)
[2016-10-04] MEDS: CEFAZOLIN 1 GM in DEXTROSE 5%-WATER - 50 ML IVPB SCH ×2 (01:48→10:18)
[2016-10-04] MEDS: HEPARIN NA (PORCINE) 5,000 UNITS/ML 1ML VIAL SQ SCH ×3 (06:36→21:06)
[2016-10-04 08:31] LABS: ANION GAP 8 (8-16); CALCIUM 7.4 mg/dL (8.5-10.1); CO2 27 mmol/L (21-32); CREATININE 0.4 mg/dL (0.7-1.3); GLUCOSE,RANDOM 75 mg/dL (74-106)
[2016-10-04] MEDS ORDERED: ceFAZolin SODIUM 1 GM VIAL ONE (10:00)
[2016-10-04] MEDS ORDERED: PT OWN MED DRAWER 7, Y5N ONE ×2 (10:00→20:06)
[2016-10-04] MEDS ORDERED: DEXTROSE 5%-WATER - 50 ML IVPB ONE (10:01)
[2016-10-04] MEDS: RIFAXIMIN 550 MG TABLET (UD) PO SCH ×2 (10:18→21:07)
[2016-10-04] MEDS: NADOLOL 20 MG TABLET (FP) PO SCH (10:18)
[2016-10-04] MEDS: METHADONE HCL 5 MG TABLET PO SCH (10:18)
[2016-10-04] MEDS: THIAMINE HCL 100 MG TABLET (FP) PO SCH (10:19)
[2016-10-04] MEDS: FOLIC ACID 1 MG TABLET (FP) PO SCH (10:19)
[2016-10-04] MEDS: PANTOPRAZOLE 40 MG TABLET (FP) PO SCH (10:19)
[2016-10-04] MEDS: COLLAGENASE CLOSTRIDIUM HIST. 30 GRAMS TUBE TP SCH ×2 (10:19→14:26)
[2016-10-04] MEDS: FUROSEMIDE 40 MG TABLET (FP) PO SCH (10:19)
[2016-10-04] MEDS: POTASSIUM CHLORIDE TABS 20 MEQ TABLET.ER (FP) PO SCH ×2 (10:24→16:32)
[2016-10-04 10:52] LABS: ALBUMIN 1.4 g/dl (3.4-5.0); BILIRUBIN,DIRECT 0.5 mg/dL (0.0-0.2)
[2016-10-04 10:54] LABS: BILIRUBIN,TOTAL 0.9 mg/dL (0.2-1.0); TOT PROT 5.5 g/dl (6.4-8.2)
[2016-10-04] MEDS: LACTULOSE 20 GM/30 ML UDC (FOR RECTAL USE ONLY) PR SCH (11:07)
--- NOTE | 2016-10-04 11:57 | PN ---
Physical Exam: SUBJECTIVE: Patient seen and examined at bedside. Kept eyes closed during this provider's exam, irritated, refused to answer questions, but awoke and was alert and oriented when fiancee came to bedside. OBJECTIVE: Vital Signs Period Temp Pulse Resp BP Sys/Choi Pulse Ox Last 24 Hr 97.5 F-99.2 F 70-75 18-20 87-110/45-62 99 GENERAL: A&Ox3 HEAD: Normal with no signs of trauma. EYES: PERRL, extraocular movements intact, sclera anicteric, conjunctiva clear. No ptosis. LUNGS: Breath sounds equal, clear to auscultation bilaterally, no wheezes, no crackles, no accessory muscle use. HEART: Regular rate and rhythm, S1, S2 without murmur, rub or gallop. ABDOMEN: Soft, distended, tympanic UPPER EXTREMITIES: 2+ pulses, warm, well-perfused, no edema. RIGHT LOWER EXTREMITY: vascular ulcer extends on posterior leg from ankle to knee, wound bed is beefy red, no slough, no odor, moderate bleeding NEUROLOGICAL: Cranial nerves II through XII grossly intact. Normal speech, gait not observed. Laboratory Results - last 24 hr 09/30/16 10/04/16 10/04/16 06:00 06:00 06:00 Sodium 144 Potassium 3.4 L Chloride 109 H Carbon Dioxide 27 Anion Gap 8 BUN 9 D Creatinine 0.4 L Random Glucose 75 D Calcium 7.4 L Total Bilirubin Direct Bilirubin AST ALT Alkaline Phosphatase Ammonia 117.35 H Total Protein Albumin Hepatitis C Antibody >11.0 H 10/04/16 06:00 Sodium Potassium Chloride Carbon Dioxide Anion Gap BUN Creatinine Random Glucose Calcium Total Bilirubin 0.9 Direct Bilirubin 0.5 H D AST 39 H ALT 17 Alkaline Phosphatase 97 Ammonia Total Protein 5.5 L Albumin 1.4 L Hepatitis C Antibody Active Medications Generic Name Dose Route Start Last Admin Trade Name Freq PRN Reason Stop Dose Admin Collagenase 1 applic 09/29/16 17:30 10/04/16 10:19 Santyl - TP 1 applic DAILY KENDRICK Administration Folic Acid 1 mg 09/29/16 10:00 10/04/16 10:19 Folic Acid - PO 1 mg DAILY KENDRICK Administration Furosemide 40 mg 10/02/16 10:00 10/04/16 10:19 Lasix - PO 40 mg DAILY KENDRICK Administration Heparin Sodium (Porcine) 5,000 unit 09/30/16 04:07 10/04/16 06:36 Heparin - SQ 5,000 unit TID KENDRICK Administration Cefazolin Sodium 1 gm/ 50 mls @ 100 mls/hr 09/29/16 12:15 10/04/16 10:18 Dextrose IVPB 100 mls/hr Q8H-IV KENDRICK Administration Lactulose 45 gm 10/04/16 10:30 Cephulac (Oral Use) PO TID KENDRICK Methadone HCl 5 mg 10/03/16 16:43 10/04/16 10:18 Dolophine - PO 5 mg DAILY KENDRICK Administration Nadolol 10 mg 09/30/16 13:15 10/04/16 10:18 Corgard - PO 10 mg DAILY KENDRICK Administration Pantoprazole Sodium 40 mg 09/29/16 10:00 10/04/16 10:19 Protonix - PO 40 mg DAILY KENDRICK Administration Potassium Chloride 40 meq 10/04/16 10:00 10/04/16 10:24 K-Dur - PO 10/04/16 16:01 40 meq Q6H KENDRICK Administration Rifaximin 550 mg 10/03/16 22:00 10/04/16 10:18 Xifaxan - PO 550 mg BID KENDRICK Administration Thiamine HCl 100 mg 09/29/16 10:00 10/04/16 10:19 Vitamin B1 - PO 100 mg DAILY KENDRICK Administration ASSESSMENT/PLAN 46 year old male with pmhx cirrhosis, ETOH, esophageal varices, Hep C, chronic wound to RLE admitted with pain to RLE and non healing wound. RLE venous stasis ulcer --wound very clean, no slough, no odor, no drainage; moderate amount of bleeding --switch to PO Keflex --stop collagenase, dress daily with xerofoam ETOH abuse --completed librium taper --continue folic acid, thiamine Opioid dependence --continue methadone 5mg daily Mild hepatic encephalopathy --much improved; alert, oriented, interactive with family at bedside; non- cooperative with staff; suspect volitional component to "lethargy" --very large BM overnight --increase lactulose 30mg TID--titrate to 2-3 BMs per day Hypoalbuminemia Lower extremity edema --continue PO lasix Esophageal varices/Portal HTN/cirrhosis --continue Nadolol, protonix Thrombocytopenia/prolonged INR -- Likely d/t cirrhosis Hypokalemia --repleted PPX - Daily physical therapy - Heparin BID - Daily wound care Dispo: - Medically cleared, awaiting SNF placement or home PT, pt unable to assist himself or walk with walker Visit type - Emergency Visit Emergency Visit: Yes ED Registration Date: 09/29/16 Care time: The patient presented to the Emergency Department on the above date and was hospitalized for further evaluation of their emergent condition. - New Patient This patient is new to me today: Yes Date on this admission: 10/04/16 - Critical Care Critical Care patient: No
[2016-10-04] MEDS: LACTULOSE 20 GM/30 ML UDC (FOR ORAL USE ONLY) PO SCH ×3 (12:00→21:06)
[2016-10-04] MEDS ORDERED: traMADol HCL 50 MG TABLET PO PRN (12:17)
[2016-10-04] MEDS: CEPHALEXIN MONOHYDRATE 500 MG CAPSULE (UD) PO SCH (18:03)
[2016-10-04] MEDS ORDERED: ACETAMINOPHEN 325 MG TABLET (FP) PO ONE ×2 (20:45)
[2016-10-04] MEDS ORDERED: oxyCODONE HCL 5 MG TABLET PO ONE ×2 (20:45)
[2016-10-04] MEDS: MULTIVITAMINS (DAILY MVI) TABLET (FP) PO SCH (22:30)
[2016-10-05] MEDS: CEPHALEXIN MONOHYDRATE 500 MG CAPSULE (UD) PO SCH ×3 (00:37→18:09)
[2016-10-05 10:13] LABS: HCV LOG 10 5.732 (.)
[2016-10-05] MEDS ORDERED: PT OWN MED DRAWER 7, Y5N ONE (11:01)
[2016-10-05] MEDS: NADOLOL 20 MG TABLET (FP) PO SCH (11:04)
[2016-10-05] MEDS: METHADONE HCL 5 MG TABLET PO SCH (11:06)
[2016-10-05] MEDS: FOLIC ACID 1 MG TABLET (FP) PO SCH (11:06)
[2016-10-05] MEDS: PANTOPRAZOLE 40 MG TABLET (FP) PO SCH (11:06)
[2016-10-05] MEDS: FUROSEMIDE 40 MG TABLET (FP) PO SCH (11:06)
[2016-10-05] MEDS: THIAMINE HCL 100 MG TABLET (FP) PO SCH (11:07)
[2016-10-05] MEDS: ASCORBIC ACID 500 MG TABLET (FP) PO SCH (11:07)
[2016-10-05] MEDS: RIFAXIMIN 550 MG TABLET (UD) PO SCH ×2 (11:07→23:00)
[2016-10-05] MEDS: MULTIVITAMINS (DAILY MVI) TABLET (FP) PO SCH (11:07)
--- NOTE | 2016-10-05 13:17 | DS ---
Physical Exam: SUBJECTIVE: Patient seen and examined at bedside. States he wants to go home, not to a rehab facility. OBJECTIVE: Vital Signs Period Temp Pulse Resp BP Sys/Choi Pulse Ox Last 24 Hr 97.9 F-99.6 F 75-85 18-20 104-120/60-68 98 PHYSICAL EXAM GENERAL: A&Ox3 HEAD: Normal with no signs of trauma. EYES: PERRL, extraocular movements intact, sclera anicteric, conjunctiva clear. No ptosis. LUNGS: Breath sounds equal, clear to auscultation bilaterally, no wheezes, no crackles, no accessory muscle use. HEART: Regular rate and rhythm, S1, S2 without murmur, rub or gallop. ABDOMEN: Soft, distended, tympanic UPPER EXTREMITIES: 2+ pulses, warm, well-perfused, no edema. RIGHT LOWER EXTREMITY: vascular ulcer extends on posterior leg from ankle to knee, wound bed is beefy red, no slough, no odor, moderate bleeding NEUROLOGICAL: Cranial nerves II through XII grossly intact. Normal speech, gait not observed. CBCD WBC 3.3 K/mm3 (4.0-10.0) L 10/01/16 08:00 RBC 3.76 M/mm3 (4.00-5.60) L 10/01/16 08:00 Hgb 8.8 GM/dL (11.7-16.9) L 10/01/16 08:00 Hct 27.2 % (35.4-49) L 10/01/16 08:00 MCV 72.2 fl (80-96) L 10/01/16 08:00 MCHC 32.5 g/dl (32.0-35.9) 10/01/16 08:00 RDW 22.5 % (11.9-15.9) H 10/01/16 08:00 Plt Count 126 K/MM3 (134-434) L D 10/01/16 08:00 MPV 8.7 fl (7.5-11.1) 10/01/16 08:00 CMP Sodium 144 mmol/L (136-145) 10/04/16 06:00 Potassium 3.4 mmol/L (3.5-5.1) L 10/04/16 06:00 Chloride 109 mmol/L (98-107) H 10/04/16 06:00 Carbon Dioxide 27 mmol/L (21-32) 10/04/16 06:00 Anion Gap 8 (8-16) 10/04/16 06:00 BUN 9 mg/dL (7-18) D 10/04/16 06:00 Creatinine 0.4 mg/dL (0.7-1.3) L 10/04/16 06:00 Creat Clearance w eGFR > 60 (>60) 10/01/16 08:00 Calcium 7.4 mg/dL (8.5-10.1) L 10/04/16 06:00 Total Bilirubin 0.9 mg/dL (0.2-1.0) 10/04/16 06:00 AST 39 U/L (15-37) H 10/04/16 06:00 ALT 17 U/L (12-78) 10/04/16 06:00 Alkaline Phosphatase 97 U/L (45-117) 10/04/16 06:00 Total Protein 5.5 g/dl (6.4-8.2) L 10/04/16 06:00 Albumin 1.4 g/dl (3.4-5.0) L 10/04/16 06:00 HOSPITAL COURSE: Date of Admission:09/29/16 Date of Discharge: 10/05/16 46 year old male with pmhx cirrhosis, ETOH, esophageal varices, Hep C, chronic wound to RLE admitted with pain to RLE and non healing wound. RLE venous stasis ulcer --wound very clean, no slough, no odor, no drainage; moderate amount of bleeding --switch to PO Keflex for 10 days --stop collagenase, dress daily with xerofoam ETOH abuse --completed librium taper --continued folic acid, thiamine Opioid dependence --continued methadone 5mg daily Mild hepatic encephalopathy --much improved; alert, oriented, interactive with family at bedside; non- cooperative with staff; suspect volitional component to "lethargy" --very large BM overnight --increase lactulose 30mg TID--titrate to 2-3 BMs per day Hypoalbuminemia Lower extremity edema --continued PO lasix Esophageal varices/Portal HTN/cirrhosis --continued Nadolol, protonix Thrombocytopenia/prolonged INR -- Likely d/t cirrhosis Hypokalemia --repleted Directions to death claim clerk: presently there is no sign of infection. Patient will continue Keflex for another 10 days. After cleaning and drying wound, apply xerofoam dressings and wrap with sterile cling. Minutes to complete discharge: 35 Discharge Summary Reason For Visit: BILATERAL LEG EDEMA, OPEN WOUND Current Active Problems Cellulitis of right leg (Acute) Venous stasis ulcer of right lower extremity (Acute) Bilateral leg edema (Chronic) Liver failure (Chronic) - Instructions Diet, Activity, Other Instructions: Arrangements have been made for you to be seen by the Visiting Nurse Wound Service. Five prescriptions have been sent to your pharmacy. You should take these medications as directed. You should followup with your primary care provider within 1 week of your discharge. Referrals: Garcia Arteaga [Primary Care Provider] - 1 Week - Home Medications Comprehensive Discharge Medication List: Ambulatory Orders Furosemide [Lasix] 40 mg PO DAILY 07/26/16 Methadone [Dolophine -] 10 mg PO DAILY 07/27/16 Collagenase Clostridium Hist. [Santyl -] 1 applic TP DAILY #1 tube 09/07/16 Pantoprazole Sodium [Protonix] 40 mg PO DAILY 09/29/16 Folic Acid - 1 mg PO DAILY #30 tablet 10/02/16 Nadolol [Corgard -] 10 mg PO DAILY #30 tablet 10/02/16 Thiamine HCl [Vitamin B1 -] 100 mg PO DAILY #30 tablet 10/02/16 This patient is new to me today: No Emergency Visit: Yes ED Registration Date: 09/29/16 Care time: The patient presented to the Emergency Department on the above date and was hospitalized for further evaluation of their emergent condition. Critical Care patient: No - Discharge Referral Referred to [facility] Med P.C[facility] No Physician Referral: Sen Garcia DO ([facility])
[2016-10-05] MEDS: LACTULOSE 20 GM/30 ML UDC (FOR ORAL USE ONLY) PO SCH ×2 (13:41→22:59)
[2016-10-05] MEDS: HEPARIN NA (PORCINE) 5,000 UNITS/ML 1ML VIAL SQ SCH ×2 (13:43→22:57)
--- NOTE | 2016-10-05 21:50 | HOSP ---
Subjective - Review of Symptoms Events since last encounter: 46yo M has been D/Jose but not yet left the hospital, has been detoxed from etoh , admitted for RLE nonhealing wound. Pt became agitated and was posing a risk of injury to self. Wrist restraints were ordered for pt safety. Physical Examination Vital Signs: Vital Signs Temperature 98.1 F 10/05/16 21:00 Pulse Rate 92 H 10/05/16 21:00 Respiratory Rate 18 10/05/16 21:00 Blood Pressure 125/75 10/05/16 21:00 O2 Sat by Pulse Oximetry (%) 98 10/04/16 21:00 Labs: CBC, BMP 10/01/16 08:00 10/04/16 06:00 Visit type - Emergency Visit Emergency Visit: Yes ED Registration Date: 09/29/16 Care time: The patient presented to the Emergency Department on the above date and was hospitalized for further evaluation of their emergent condition. - New Patient This patient is new to me today: Yes Date on this admission: 10/05/16 - Critical Care Critical Care patient: No
[2016-10-06] MEDS: CEPHALEXIN MONOHYDRATE 500 MG CAPSULE (UD) PO SCH ×2 (00:20→06:15)
[2016-10-06] MEDS: LACTULOSE 20 GM/30 ML UDC (FOR ORAL USE ONLY) PO SCH (06:15)
[2016-10-06] MEDS: HEPARIN NA (PORCINE) 5,000 UNITS/ML 1ML VIAL SQ SCH (06:16)
[2016-10-06 08:39] VITALS: BP 117/69; PULSE 80; TEMP 97.7
[2016-10-06] MEDS ORDERED: PT OWN MED DRAWER 7, Y5N ONE (09:16)
[2016-10-06] MEDS: NADOLOL 20 MG TABLET (FP) PO SCH (09:20)
[2016-10-06] MEDS: PANTOPRAZOLE 40 MG TABLET (FP) PO SCH (09:21)
[2016-10-06] MEDS: METHADONE HCL 5 MG TABLET PO SCH (09:21)
[2016-10-06] MEDS: FUROSEMIDE 40 MG TABLET (FP) PO SCH (09:21)
[2016-10-06] MEDS: FOLIC ACID 1 MG TABLET (FP) PO SCH (09:21)
[2016-10-06] MEDS: RIFAXIMIN 550 MG TABLET (UD) PO SCH (09:22)
[2016-10-06] MEDS: MULTIVITAMINS (DAILY MVI) TABLET (FP) PO SCH (09:22)
[2016-10-06] MEDS: ASCORBIC ACID 500 MG TABLET (FP) PO SCH (09:22)
[2016-10-06] MEDS: THIAMINE HCL 100 MG TABLET (FP) PO SCH (09:22)
== END 2016-10-06 12:18 | disposition home or self-care (01) | DRG 380 ==
LOC: JER 00:32 → JERBED 04:37 → J5S 06:51 → J8W 10-02 14:09
PROVIDERS: ADMIT Internal Medicine; ATTEND Nurse Practitioner Acute Care
PROC: HZ2ZZZZ Detoxification Services for Substance Abuse Treatment (ICD-10-PCS; principal; 2016-09-29)
DX: L97.819 Non-pressure chronic ulcer of other part of right lower leg with unspecified severity (principal); I83.019 Varicose veins of right lower extremity with ulcer of unspecified site; K70.30 Alcoholic cirrhosis of liver without ascites; B19.20 Unspecified viral hepatitis C without hepatic coma; F10.20 Alcohol dependence, uncomplicated; L03.115 Cellulitis of right lower limb; I85.00 Esophageal varices without bleeding; K42.9 Umbilical hernia without obstruction or gangrene; M06.80 Other specified rheumatoid arthritis, unspecified site; M13.88 Other specified arthritis, other site; K76.6 Portal hypertension; D69.6 Thrombocytopenia, unspecified; R27.8 Other lack of coordination; R79.1 Abnormal coagulation profile; K72.90 Hepatic failure, unspecified without coma; E87.6 Hypokalemia; R60.0 Localized edema; F11.20 Opioid dependence, uncomplicated; E88.09 Other disorders of plasma-protein metabolism, not elsewhere classified
CPT/HCPCS: 36415; 71010-TC; 80048; 80053; 80076; 81003; 82140; 82553; 83735; 84484; 85025; 85610; 86803; 86850; 86900; 86901; 87040; 87086; 87522; 93005; 93010; 93970-TC; 97116-GP; 97162-GP; 99283-25; J1644

== ENCOUNTER 2016-10-10 13:51 | Inpatient (IN) | payer OTHER ==
--- NOTE | 2016-10-10 15:04 | PDOC ---
History of Present Illness <Ozzie Palafox - Last Filed: 10/10/16 15:48> <Del Guzmán - Last Filed: 10/10/16 16:21> - General History Source: Patient Exam Limitations: No Limitations - History of Present Illness Initial Comments: 10/10/16 15:04 CHIEF COMPLAINT: AMS HISTORY OF PRESENT ILLNESS: This is a 46 year old male with liver cirrhosis/Hep C, esophageal varices, SBO, ETOH abuse, polysubstance abuse, chronic right lower extremity wound with multiple recent admissions for cellulitis brought in by his girlfriend for altered mental status. She states that she found him in the street this morning unconscious. She acknowledges that he has been drinking heavily recently. She also notes that his wound has been leaking malodorous fluid and appears redder and more swollen than usual. She is concerned that his ammonia levels may be high because he is lethargic and confused. V/s on arrival are notable for P 91. PCP is Garcia Arteaga. REVIEW OF SYSTEMS: Patient is unable to participate. PHYSICAL EXAM: GENERAL: The patient is responsive to painful stimuli, minimally interactive. HEAD: Normal with no signs of trauma. ENT: Pupils equal, round and reactive to light, extraocular movements intact, sclera anicteric, conjunctiva clear. Neck supple. LUNGS: Clear to auscultation bilaterally. Normal excursion. No respiratory distress or use of accessory muscles. CV: RRR, S1/S2, no MRG. Cap refill < 2 sec. ABDOMEN: Soft, protuberant, non-tender, midline vertical surgical scar. EXTREMITIES: RLE: 2+ pitting edema. Open, desquamated ulcerations to anterior tibia and posterior calf, beefy red with malodorous yellow drainage. DP/PT pulses 1+, warm and well-perfused. NEUROLOGICAL: Opens eyes to voice. Groans when dressing taken down. CN II-XII grossly intact. SKIN: Warm, dry, normal turgor. <Natalie Aggarwal - Last Filed: 10/10/16 19:07> - General Chief Complaint: Alcohol intoxication Stated Complaint: Alcohol intoxication Time Seen by Provider: 10/10/16 14:29 Past History <Ozzie Palafox - Last Filed: 10/10/16 15:48> <Del Guzmán - Last Filed: 10/10/16 16:21> - Past Medical History Anemia: No Asthma: No Cancer: No Cardiac Disorders: No CVA: No COPD: No CHF: No Dementia: No Diabetes: No Dialysis: No GI Disorders: Yes (GI BLEED) Disorders: No HTN: Yes Hypercholesterolemia: No HIV: No Liver Disease: Yes (HEPATITS C) Seizures: No Thyroid Disease: No - Surgical History Abdominal Surgery: Yes (GI BLEED/HERNIA) Appendectomy: No Cardiac Surgery: No Cholecystectomy: No Lung Surgery: No Neurologic Surgery: Yes Orthopedic Surgery: No - Immunization History Immunization Up to Date: No - Psycho/Social/Smoking Cessation Hx Anxiety: No Suicidal Ideation: No Smoking Status: Yes Smoking History: Current some day smoker Have you smoked in the past 12 months: Yes Number of Cigarettes Smoked Daily: 3 If you are a former smoker, when did you quit?: 06/11/2013 Information on smoking cessation initiated: No 'Breaking Loose' booklet given: 07/26/16 Hx Alcohol Use: Yes Drug/Substance Use Hx: No Substance Use Type: Alcohol Hx Substance Use Treatment: Yes ([facility]) <Natalie Aggarwal - Last Filed: 10/10/16 19:07> - Past Medical History Allergies/Adverse Reactions: Allergies Allergy/AdvReac Type Severity Reaction Status Date / Time No Known Allergies Allergy Verified 09/29/16 00:43 Home Medications: Ambulatory Orders Methadone [Dolophine -] 10 mg PO DAILY 07/27/16 Pantoprazole Sodium [Protonix] 40 mg PO DAILY 09/29/16 Folic Acid - 1 mg PO DAILY #30 tablet 10/02/16 Nadolol [Corgard -] 10 mg PO DAILY #30 tablet 10/02/16 Thiamine HCl [Vitamin B1 -] 100 mg PO DAILY #30 tablet 10/02/16 Ascorbic Acid [Vitamin C -] 500 mg PO DAILY #30 tablet 10/05/16 Cephalexin Monohydrate [Keflex -] 500 mg PO BID #20 mg 10/05/16 Lactulose (Oral Use) [Cephulac -] 30 gm PO TID #90 gm 10/05/16 Multivitamins [Multivit ([facility] Formul[facility])] 1 tab PO DAILY #30 tab 10/05/16 Rifaximin [Xifaxan -] 550 mg PO BID #60 tablet 10/05/16 *Physical Exam - Vital Signs Last Vital Signs Temp Pulse Resp BP Pulse Ox 98.2 F 91 H 18 126/77 98 10/10/16 14:03 10/10/16 14:03 10/10/16 14:03 10/10/16 14:03 10/10/16 14:03 <Ozzie Palafox - Last Filed: 10/10/16 15:48> - Vital Signs Last Vital Signs Temp Pulse Resp BP Pulse Ox 98.2 F 91 H 18 126/77 98 10/10/16 14:03 10/10/16 14:03 10/10/16 14:03 10/10/16 14:03 10/10/16 14:03 <Del Guzmán - Last Filed: 10/10/16 16:21> - Vital Signs Last Vital Signs Temp Pulse Resp BP Pulse Ox 98.2 F 91 H 18 126/77 98 10/10/16 14:03 10/10/16 14:03 10/10/16 14:03 10/10/16 14:03 10/10/16 14:03 <Natalie Aggarwal - Last Filed: 10/10/16 19:07> Heart Score/ECG Review #1 10/10/16 15:48 Vent. rate 92 bpm. IA interval 130 ms QRS duration 88 ms QT/QTc 386/477 ms P-R-T axes 73 0 30 Normal sinus rhythm Normal ECG <Ozzie Palafox - Last Filed: 10/10/16 15:48> ED Treatment Course - LABORATORY CBC & Chemistry Diagram: 10/10/16 15:38 10/10/16 15:38 - RADIOLOGY Radiology Studies Ordered: Category Date Time Status HEAD CT WITHOUT CONTRAST [CT] Stat CT Scan 10/10/16 15:03 Ordered CHEST X-RAY PORTABLE* [RAD] Stat Radiology 10/10/16 15:02 Ordered <Natalie Aggarwal - Last Filed: 10/10/16 19:07> Medical Decision Making - Medical Decision Making 10/10/16 16:21 20g Angiocath L EJ without complication <Del Guzmán - Last Filed: 10/10/16 16:21> - Medical Decision Making 10/10/16 16:16 A/P: 46 year old male with AMS. Possible etiologies include EtOH intoxication, hyperammonemia, sepsis/metabolic encephalopathy secondary to wound infection. 1. EKG 2. Basic labs, ammonia, blood cultures 3. Vancomycin/Zosyn for likely wound infection 4. Anticipate admission CXR: No infiltrate. Patient now more alert and requesting pain medication for RLE. Also given lactulose for elevated ammonia (78). IV abx infusing. EtOH <5; AMS not attributable to intoxication. Family wishes to discuss SNF placement. Endorsed to Dr. Solitario. <Natalie Aggarwal - Last Filed: 10/10/16 19:07> *DC/Admit/Observation/Transfer <Ozzie Palafox - Last Filed: 10/10/16 15:48> <Del Guzmán - Last Filed: 10/10/16 16:21> - Discharge Dispostion Admit: Yes <Natalie Aggarwal - Last Filed: 10/10/16 19:07> Diagnosis at time of Disposition: Wound infection, Hyperammonemia Altered mental status Qualifiers: Altered mental status type: somnolence Qualified Code(s): R40.0 - Somnolence - Referrals Referrals: Garcia Arteaga [Primary Care Provider] -
[2016-10-10] MEDS ORDERED: morphine CARPU-JECT 4 MG/1 ML DISP.SYRIN IVPUSH ONE (15:13)
[2016-10-10] MEDS ORDERED: PIPERACILLIN/TAZOB 4.5 GM 4.5 GM in DEXTROSE 5%-WATER - 100 ML IVPB ONE (16:19)
[2016-10-10] MEDS ORDERED: VANCOMYCIN 1,000 MG in DEXTROSE 5%-WATER - 250 ML IVPB ONE (16:19)
[2016-10-10 16:29] LABS: BASOPHIL 0.4 % (0-2.0); EOSINOPHIL 2.7 % (0-4.5); MCH 23.2 pg (25.7-33.7); MCHC 32.6 g/dl (32.0-35.9); MEAN CELL VOLUME 71.3 fl (80-96); MEAN PLT VOLUME 8.3 fl (7.5-11.1); NEUTROPHILS 67.7 % (42.8-82.8); PLATELET COUNT 109 K/MM3 (134-434); RDW 22.1 % (11.9-15.9)
[2016-10-10 16:44] LABS: INR 1.86 (0.82-1.09); PROTHROMBIN TIME (PATIENT) 20.7 SEC (9.98-11.88)
[2016-10-10] MEDS ORDERED: VANCOMYCIN 1 GRAM (PRE-DOCKED) 250 ML IVPB ONE (16:44)
[2016-10-10] MEDS ORDERED: PIPERACILLIN/TAZOB 4.5 GM 100 ML IVPB ONE (16:44)
[2016-10-10 17:02] LABS: ALBUMIN 1.8 g/dl (3.4-5.0); ANION GAP 8 (8-16); BILIRUBIN,TOTAL 1.8 mg/dL (0.2-1.0); CALCIUM 7.6 mg/dL (8.5-10.1); CO2 27 mmol/L (21-32); CREATININE 0.5 mg/dL (0.7-1.3); SGOT/AST 58 U/L (15-37); SGPT/ALT 25 U/L (12-78); TOT PROT 6.7 g/dl (6.4-8.2)
[2016-10-10 17:04] LABS: ALK PHOS 93 U/L (45-117); CPK 221 IU/L (39-308); TROPONIN I < 0.02 ng/ml (0.00-0.05)
[2016-10-10] MEDS ORDERED: LACTULOSE 20 GM/30 ML UDC (FOR ORAL USE ONLY) PO ONE (17:15)
[2016-10-10 17:20] LABS: GLUCOSE,RANDOM 103 mg/dL (74-106)
[2016-10-10 18:35] LABS: PLATELET ESTIMATE DECREASED (NORMAL); POLYCHROMASIA 1+
[2016-10-10 18:36] LABS: ANISOCYTOSIS 3+
[2016-10-10] MEDS ORDERED: oxyCODONE HCL 5 MG TABLET PO PRN (19:49)
--- NOTE | 2016-10-10 20:09 | HP ---
CHIEF COMPLAINT: altered mental status PCP: Garcia Arteaga NP, Vascular: Coty Garcia HISTORY OF PRESENT ILLNESS: This is a 46 year old male with a past medical history of cirrhosis, ETOH, varices, Hep C, chronic wound to RLE who presented to the ED with altered mental status. As per ED note, girlfriend found patient "unconscious in street" . Pt minimally responsive, unable to obtain HPI from him and girlfriend not present. ER course was notable for: (1) CT head negative for acute infarct or hemorrhage (2) ammonia level 78.79 Recent Travel: pt denies PAST MEDICAL HISTORY: Hep C cirrhosis varices EtOH SBO PAST SURGICAL HISTORY: partial SB resection facial trauma-fx orbit s/p ORIF with metal plate Social History: Smoking: unknown, previously reported 1-2 cig/day Alcohol: unknown-as per ED note girlfriend reported "heavy drinking" Drugs: pt denies current use. past h/o heroin use, on methadone program [facility] Allergies No Known Allergies Allergy (Verified 09/29/16 00:43) Home Medications 3 Medication Instructions Recorded Methadone [Dolophine -] 10 mg PO DAILY 07/27/16 Pantoprazole Sodium [Protonix] 40 mg PO DAILY 09/29/16 Folic Acid - 1 mg PO DAILY #30 tablet 10/02/16 Nadolol [Corgard -] 10 mg PO DAILY #30 tablet 10/02/16 Thiamine HCl [Vitamin B1 -] 100 mg PO DAILY #30 tablet 10/02/16 Ascorbic Acid [Vitamin C -] 500 mg PO DAILY #30 tablet 10/05/16 Cephalexin Monohydrate [Keflex -] 500 mg PO BID #20 mg 10/05/16 Lactulose (Oral Use) [Cephulac -] 30 gm PO TID #90 gm 10/05/16 Multivitamins [Multivit ([facility] 1 tab PO DAILY #30 tab 10/05/16 Formulary)] Rifaximin [Xifaxan -] 550 mg PO BID #60 tablet 10/05/16 REVIEW OF SYSTEMS CONSTITUTIONAL: Absent: fever, chills, diaphoresis, generalized weakness, malaise, loss of appetite, weight change HEENT: Absent: rhinorrhea, nasal congestion, throat pain, throat swelling, difficulty swallowing, mouth swelling, ear pain, eye pain, visual changes CARDIOVASCULAR: Present: peripheral edema Absent: chest pain, syncope, palpitations, irregular heart rate, lightheadedness RESPIRATORY: Absent: cough, shortness of breath, dyspnea with exertion, orthopnea, wheezing, stridor, hemoptysis GASTROINTESTINAL: Absent: abdominal pain, abdominal distension, nausea, vomiting, diarrhea, constipation, melena, hematochezia GENITOURINARY: Absent: dysuria, frequency, urgency, hesitancy, hematuria, flank pain, genital pain MUSCULOSKELETAL: Present: leg pain Absent: myalgia, arthralgia, joint swelling, back pain, neck pain SKIN: Present: chronic wound RLE Absent: rash, itching, pallor HEMATOLOGIC/IMMUNOLOGIC: Absent: easy bleeding, easy bruising, lymphadenopathy, frequent infections ENDOCRINE: Absent: unexplained weight gain, unexplained weight loss, heat intolerance, cold intolerance NEUROLOGIC: Present: altered mental status Absent: headache, focal weakness or paresthesias, dizziness, unsteady gait, seizure, bladder or bowel incontinence PSYCHIATRIC: Absent: anxiety, depression, suicidal or homicidal ideation, hallucinations. PHYSICAL EXAMINATION Vital Signs - 24 hr 3 10/10/16 14:03 Temperature 98.2 F Pulse Rate 91 H Respiratory 18 Rate Blood Pressure 126/77 O2 Sat by Pulse 98 Oximetry (%) GENERAL: Awake, alert, and fully oriented, in no acute distress. HEAD: Normal with no signs of trauma. EYES: Pupils equal, round and reactive to light, extraocular movements intact, sclera anicteric, conjunctiva clear. No lid lag. EARS, NOSE, THROAT: Ears normal, nares patent, oropharynx clear without exudates. Moist mucous membranes. NECK: Normal range of motion, supple without lymphadenopathy, JVD, or masses. LUNGS: Breath sounds equal, clear to auscultation bilaterally. No wheezes, and no crackles. No accessory muscle use. HEART: Regular rate and rhythm, normal S1 and S2 without murmur, rub or gallop. ABDOMEN: Soft, nontender, not distended, normoactive bowel sounds, no guarding, no rebound, no masses. No hepatomegaly or splenomegaly. MUSCULOSKELETAL: Normal range of motion at all joints. No bony deformities or tenderness. No CVA tenderness. UPPER EXTREMITIES: 2+ pulses, warm, well-perfused. No cyanosis. No clubbing. No peripheral edema. LOWER EXTREMITIES: 2+ pulses, warm, well-perfused. No calf tenderness. 2+ peripheral edema RLE, 1+ LLE, + venous ulcer to posterior aspect RLE, brown eschar noted, DC yellowish, foul smelling. majority of entire lower leg noted with desquamation of skin, wound beds beefy red, DC serosanguinous. NEUROLOGICAL: Cranial nerves II-XII intact. Normal speech. Normal gait. PSYCHIATRIC: Cooperative. Good eye contact. Appropriate mood and affect. SKIN: Warm, dry, normal turgor, no rashes or lesions noted, normal capillary refill. Laboratory Results - last 24 hr 3 10/10/16 10/10/16 10/10/16 15:38 15:38 15:38 WBC 6.0 D RBC 3.90 L Hgb 9.1 L Hct 27.8 L MCV 71.3 L MCH 23.2 L MCHC 32.6 RDW 22.1 H Plt Count 109 L MPV 8.3 Neutrophils % 67.7 D Lymphocytes % 11.0 D Monocytes % 18.2 H Eosinophils % 2.7 Basophils % 0.4 Platelet Estimate Decreased Polychromasia 1+ Anisocytosis 3+ INR 1.86 H Sodium 139 Potassium 3.6 Chloride 104 Carbon Dioxide 27 Anion Gap 8 BUN 5 L D Creatinine 0.5 L D Creat Clearance w eGFR > 60 Random Glucose 103 D Calcium 7.6 L Total Bilirubin 1.8 H D AST 58 H D ALT 25 D Alkaline Phosphatase 93 Ammonia 78.79 H Creatine Kinase 221 Creatine Kinase Index 0.7 CK-MB (CK-2) 1.576 Troponin I < 0.02 Total Protein 6.7 D Albumin 1.8 L D Alcohol, Quantitative < 5.[address] without contrast Clinical information: altered mental status No intracranial hemorrhage is seen. There is no discrete infarct within the limitations of CT. No gross mass lesion is identified. There is no extra-axial fluid collection. The ventricles and cisterns appear unremarkable. Impression: No CT evidence of acute intracranial pathology. Reported By: Jeremy Beasley MD 10/10/162017 ASSESSMENT/PLAN: 46yM with PMH HCV, cirrhosis, ETOH, varices, chronic leg edema presented to the ED with altered mental status and increased RLE swelling and pain. He is being admitted for hepatic encephalopathy and RLE cellulitis. Hepatic encephalopathy - unclear if pt has been taking medications at home - resume home lactulose 30gm TID - continue rifaximin - will need NGT placed if too lethargic to swallow po meds RLE cellulitis with vascular ulcer - start ancef 1g q8h - cont xeroform dressing daily, more frequently if needed - vascular consult; consider ID consult - change lasix to IV QD Cirrhosis - alcohol cessation encouraged - monitor platelets closely on heparin. ETOH dependence - start librium protocol - cont folate and thiamine DVT PPX - Heparin 5000u TID, monitor platelets and dc if dropping FEN - no IVF at this time - CMP in AM with Mg - low sodium diet Dispo: Pt currently requires inpatient management of his emergent condition and expected LOS is greater than 2 MN Visit type - Emergency Visit Emergency Visit: Yes ED Registration Date: 10/10/16 Care time: The patient presented to the Emergency Department on the above date and was hospitalized for further evaluation of their emergent condition. - New Patient This patient is new to me today: Yes Date on this admission: 10/10/16 - Critical Care Critical Care patient: No
[2016-10-10] MEDS ORDERED: chlordiazePOXIDE HCL 25 MG CAPSULE PO PRN (20:37)
[2016-10-10] MEDS: LACTULOSE 20 GM/30 ML UDC (FOR ORAL USE ONLY) PO SCH (22:32)
[2016-10-10] MEDS: RIFAXIMIN 550 MG TABLET (UD) PO SCH (22:32)
[2016-10-10 23:01] VITALS: BMI 33.7
[2016-10-10] MEDS: chlordiazePOXIDE HCL 25 MG CAPSULE PO SCH (23:15)
[2016-10-11] MEDS ORDERED: ceFAZolin SODIUM 1 GM VIAL ONE ×2 (01:43→10:17)
[2016-10-11] MEDS ORDERED: DEXTROSE 5%-WATER - 50 ML IVPB ONE ×3 (01:44→17:17)
[2016-10-11] MEDS: CEFAZOLIN 1 GM in DEXTROSE 5%-WATER - 50 ML IVPB SCH (01:48)
[2016-10-11] MEDS: HEPARIN NA (PORCINE) 5,000 UNITS/ML 1ML VIAL SQ SCH ×3 (01:48→18:04)
[2016-10-11] MEDS ORDERED: CEFAZOLIN (PRE-DOCKED) 50 ML IVPB SCH (02:00)
[2016-10-11] MEDS ORDERED: chlordiazePOXIDE HCL 25 MG CAPSULE PO SCH (05:00)
[2016-10-11] MEDS: LACTULOSE 20 GM/30 ML UDC (FOR ORAL USE ONLY) PO SCH ×4 (05:51→21:09)
[2016-10-11 08:31] LABS: BASOPHIL 0.6 % (0-2.0); EOSINOPHIL 2.2 % (0-4.5); MCH 22.7 pg (25.7-33.7); MCHC 31.8 g/dl (32.0-35.9); MEAN CELL VOLUME 71.3 fl (80-96); MEAN PLT VOLUME 8.2 fl (7.5-11.1); NEUTROPHILS 71.1 % (42.8-82.8); PLATELET COUNT 100 K/MM3 (134-434); RDW 22.2 % (11.9-15.9); WHITE BLOOD COUNT 7.5 K/mm3 (4.0-10.0)
[2016-10-11 09:31] LABS: ALBUMIN 1.6 g/dl (3.4-5.0); ANION GAP 8 (8-16); CALCIUM 7.5 mg/dL (8.5-10.1); CO2 26 mmol/L (21-32); CREATININE 0.4 mg/dL (0.7-1.3); GLUCOSE,RANDOM 70 mg/dL (74-106); MAGNESIUM 1.9 mg/dL (1.8-2.4); PHOSPHOROUS 2.5 mg/dL (2.5-4.9); SGOT/AST 46 U/L (15-37); SGPT/ALT 22 U/L (12-78)
[2016-10-11 09:33] LABS: ALK PHOS 89 U/L (45-117); BILIRUBIN,TOTAL 1.6 mg/dL (0.2-1.0); TOT PROT 6.1 g/dl (6.4-8.2)
--- NOTE | 2016-10-11 09:36 | PN ---
Physical Exam: SUBJECTIVE: Patient seen and examined. States he is in pain. Denies chest pain, shortness of breath OBJECTIVE: Bilateral lower ext doppler to rule out DVT Right leg PA and lateral r/o fracture Started on Vanco and Zosyn, ID consulted Will order lactic acid Ammonia levels remain elevated, rechecking levels this afternoon Negative for DVT on bilateral lower ext. Xray to rule out fracture unclear as it reads as follows "There is diffuse soft tissue swelling. Fracture or dislocation is seen". Clarified with Dr. Beasley that there is no fracture or dislocation, addendum on report to follow. Vital Signs Period Temp Pulse Resp BP Sys/Choi Pulse Ox Last 24 Hr 99.1 F-100 F 83-95 18-20 113-127/58-71 GENERAL: The patient is lethargic, asking for pain medications - opens eyes to tactile stimuli HEAD: Normal with no signs of trauma. EYES: PERRL, extraocular movements intact, sclera anicteric, conjunctiva clear. No ptosis. LUNGS: Breath sounds equal, clear to auscultation bilaterally, ABDOMEN: distended abdomen, soft rebound, no hepatosplenomegaly, no masses. EXTREMITIES: Right leg cellulitis, +3 pitting edema, open ulcerations to anterior aspect of leg. Right leg with purulent yellow drainage, mild odor. Painful to touch. NEUROLOGICAL: Lethargy, but asking for pain meds NEUROLOGICAL: Opens eyes to voice. Groans when dressing taken down. CN II-XII grossly intact. SKIN: Warm, dry, normal turgor. Laboratory Results - last 24 hr 10/11/16 10/11/16 10/11/16 07:45 07:45 07:45 WBC 7.5 RBC 3.97 L Hgb 9.0 L Hct 28.3 L MCV 71.3 L MCH 22.7 L MCHC 31.8 L RDW 22.2 H Plt Count 100 L MPV 8.2 Neutrophils % 71.1 Lymphocytes % 11.1 Monocytes % 15.0 H Eosinophils % 2.2 Basophils % 0.6 Sodium 141 Potassium 3.1 L Chloride 107 Carbon Dioxide 26 Anion Gap 8 BUN 5 L Creatinine 0.4 L Creat Clearance w eGFR > 60 Random Glucose 70 L D Calcium 7.5 L Phosphorus 2.5 Magnesium 1.9 Total Bilirubin 1.6 H AST 46 H D ALT 22 Alkaline Phosphatase 89 Ammonia 73.6 H Total Protein 6.1 L Albumin 1.6 L Active Medications Generic Name Dose Route Start Last Admin Trade Name Freq PRN Reason Stop Dose Admin Ascorbic Acid 500 mg 10/11/16 10:00 Vitamin C - PO DAILY [facility] Chlordiazepoxide HCl 25 mg 10/10/16 20:37 Librium - PO 10/13/16 20:36 Q4H PRN WITHDRAWAL(CONT SUBST) Chlordiazepoxide HCl 25 mg 10/11/16 05:00 10/11/16 05:51 Librium - PO 10/11/16 23:01 Not Given [id number] KENDRICK Chlordiazepoxide HCl 15 mg 10/12/16 05:00 Librium - PO 10/12/16 23:01 [id number] KENDRICK Folic Acid 1 mg 10/11/16 10:00 Folic Acid - PO DAILY KENDRICK Furosemide 40 mg 10/11/16 10:00 Lasix Injection - IVPUSH DAILY KENDRICK Heparin Sodium (Porcine) 5,000 unit 10/11/16 02:00 10/11/16 01:48 Heparin - SQ 5,000 unit Q8H KENDRICK Administration Cefazolin Sodium 1 gm/ 50 mls @ 100 mls/hr 10/11/16 02:00 10/11/16 01:48 Dextrose IVPB 100 mls/hr Q8H-IV KENDRICK Administration Sodium Chloride 1,000 mls @ 100 mls/hr 10/11/16 09:45 Normal Saline - IV ASDIR KENDRICK Piperacillin Sod/Tazobactam 50 mls @ 100 mls/hr 10/11/16 09:34 Sod 2.25 gm/ Dextrose IVPB 10/11/16 10:03 ONCE ONE Protocol Lactulose 30 gm 10/10/16 22:00 10/11/16 05:51 Cephulac (Oral Use) PO Not Given TID KENDRICK Lactulose 200 gm 10/11/16 10:00 Cephulac (Rectal Use) NM 10/11/16 10:01 ONCE ONE Methadone HCl 10 mg 10/11/16 10:00 Dolophine - PO DAILY [facility] Multivitamins/Minerals/Vitamin C 1 tab 10/11/16 10:00 Tab-A-Vit - PO DAILY [facility] Nadolol 10 mg 10/11/16 10:00 Corgard - PO DAILY [facility] Pantoprazole Sodium 40 mg 10/11/16 10:00 Protonix - PO DAILY [facility] Rifaximin 550 mg 10/10/16 22:00 10/10/16 22:32 Xifaxan - PO Not Given BID KENDRICK Thiamine HCl 100 mg 10/11/16 10:00 Vitamin B1 - PO DAILY [facility] ASSESSMENT/PLAN: Patient is a 46 year old male with a significant past medical history of chronic ETOH abuse, varicies, cirrhosis, small bowel obstruction, hepatitis C and right leg cellulitis. He was admitted on 10/10/2016 for altered mental status and right leg wound infection with purulent drainage. As per ED notes, patient was found by his girlfriend passed out in the street. On exam he is lethargic but arousable. He verbalizes pain of his right leg. Has episodes of agitation. Ammonia levels on admission 78. Lactulose is scheduled TID. On previous admissions his ammonia levels were as high as 117. Imaging: Right leg xray - diffuse soft tissue swelling, NO fracture or dislocation is seen. Vascular study - negative for DVT Neurology: Hepatic encephalopathy/Altered mental status - acute A/P: CT of head negative for acute infarct or hemorrhage He is responsive to tactile stimuli On Rifaximin Presented with hyperammonemia. Ammonia level 78.79 on admission, started on lactulose TID Repeat ammonia levels pending Hx of cirrhosis/Varicies, on Corgard ID: Sepsis/metabolic encephalopathy likely secondary to RLE cellulitis with vascular ulcer, purulent drainage - acute A/P: Blood and urine cultures pending ID consulted, started on Zosyn and Vanco Lactic acid 1.5, WBC within normal limits Wound cultured Vascular consulted Hematology: Anemia A/P: Likely chronic in setting of ETOH abuse Monitor in abstinence of alcohol Platelets stable at 100, monitor for thrombocytopenia Psyche: ETOH abuse with ependence/polysubstance -chronic A/P: Started on Librium protocol On folate and thiamine Started home dose of methadone 10mg F.E.N. Fluids: NS @ 100 cc/hr Electrolytes: hypok repleted, monitor daily BMP Nutrition; low sodium diet Prophylaxis: DVT: on heparin GI: Protonix Disposition: Pt currently requires inpatient management of his emergent condition and expected LOS is greater than 2 MN Visit type - Emergency Visit Emergency Visit: Yes ED Registration Date: 10/10/16 Care time: The patient presented to the Emergency Department on the above date and was hospitalized for further evaluation of their emergent condition. - New Patient This patient is new to me today: Yes Date on this admission: 10/11/16 - Critical Care Critical Care patient: No - Discharge Referral Referred to [facility] No
[2016-10-11] MEDS ORDERED: LACTULOSE 20 GM/30 ML UDC (FOR RECTAL USE ONLY) PR ONE (10:00)
[2016-10-11] MEDS ORDERED: FUROSEMIDE 40 MG/4 ML INJECTABLE VIAL IVPUSH SCH (10:00)
[2016-10-11] MEDS ORDERED: POTASSIUM CHLORIDE ORAL LIQUID 20 MEQ/15 ML PO ONE (10:15)
[2016-10-11] MEDS: ASCORBIC ACID 500 MG TABLET (FP) PO SCH (10:28)
[2016-10-11] MEDS: METHADONE HCL 10 MG TABLET PO SCH (10:28)
[2016-10-11] MEDS: PANTOPRAZOLE 40 MG TABLET (FP) PO SCH (10:28)
[2016-10-11] MEDS: THIAMINE HCL 100 MG TABLET (FP) PO SCH (10:29)
[2016-10-11] MEDS: FOLIC ACID 1 MG TABLET (FP) PO SCH (10:29)
[2016-10-11] MEDS: RIFAXIMIN 550 MG TABLET (UD) PO SCH ×2 (10:29→21:09)
[2016-10-11] MEDS: MULTIVITAMINS (DAILY MVI) TABLET (FP) PO SCH (10:29)
[2016-10-11] MEDS ORDERED: PT OWN MED DRAWER 7, Y5N ONE (10:34)
[2016-10-11] MEDS ORDERED: chlordiazePOXIDE HCL 25 MG CAPSULE PO PRN (10:40)
[2016-10-11] MEDS ORDERED: VANCOMYCIN 1,250 MG in DEXTROSE 5%-WATER - 250 ML IVPB ONE (11:30)
[2016-10-11] MEDS ORDERED: PIPERACILLIN/TAZOB 2.25 GM 2.25 GM in DEXTROSE 5%-WATER - 50 ML IVPB ONE (11:30)
--- NOTE | 2016-10-11 13:33 | CONSULT ---
Consult Consult Specialty:: infectious diseases Reason for Consultation:: bilateral cellulitits and open wounds of the legs on the rt - History of Present Illness History of Present Illness: patient in no condition to give hisotry which is taken from the charts, according to the story patient was found in the streets drunk This is a 46 year old male with liver cirrhosis/Hep C, esophageal varices, SBO , ETOH abuse, polysubstance abuse, chronic right lower extremity wound with multiple recent admissions for cellulitis brought in by his girlfriend for altered mental status. patient was found in the street unconscious. he had been drinking heavily recently. She also notes that his wound has been leaking malodorous fluid and appears redder and more swollen than usual. patient wound on the rt leg it seems have been there for some time and now have become worse currently the patient is zonked out and is in no condition to give history,but he squirms in severe pain when his right leg is touched his left leg is also cellulitic - History Source History Provided By: Medical Record Limitations to Obtaining History: Clinical Condition - Past Medical History Gastrointestinal: Yes: Ascites, Esophageal Varices, Other (Hepatitis, umbilical hernia) Hepatobiliary: Yes: Cirrhosis, Hepatitis B Psych: Yes: Addictions (alchohol Current, Heroin revcovery) Rheumatology: Yes: Rheumatoid Arthritis, Other (Arthritis). No: Fibromyalgia - Past Surgical History Past Surgical History: Yes: Colectomy - Alcohol/Substance Use Hx Alcohol Use: Yes Number of Drinks Daily: 3 History of Substance Use: reports: Heroin - Smoking History Smoking history: Current every day smoker Have you smoked in the past 12 months: Yes Aproximately how many cigarettes per day: 3 If you are a former smoker, when did you quit?: 06/11/2013 Home Medications - Allergies Allergies/Adverse Reactions: Allergies Allergy/AdvReac Type Severity Reaction Status Date / Time No Known Allergies Allergy Verified 09/29/16 00:43 - Home Medications Home Medications: Ambulatory Orders Methadone [Dolophine -] 10 mg PO DAILY 07/27/16 Pantoprazole Sodium [Protonix] 40 mg PO DAILY 09/29/16 Folic Acid - 1 mg PO DAILY #30 tablet 10/02/16 Nadolol [Corgard -] 10 mg PO DAILY #30 tablet 10/02/16 Thiamine HCl [Vitamin B1 -] 100 mg PO DAILY #30 tablet 10/02/16 Ascorbic Acid [Vitamin C -] 500 mg PO DAILY #30 tablet 10/05/16 Cephalexin Monohydrate [Keflex -] 500 mg PO BID #20 mg 10/05/16 Lactulose (Oral Use) [Cephulac -] 30 gm PO TID #90 gm 10/05/16 Multivitamins [Multivit ([facility] Formulary)] 1 tab PO DAILY #30 tab 10/05/16 Rifaximin [Xifaxan -] 550 mg PO BID #60 tablet 10/05/16 Review of Systems Unable to obtain ROS, reason: unable to obtain - Review of Systems Constitutional: reports: Other Physical Exam Vital Signs: Vital Signs Temperature 98.9 F 10/11/16 10:25 Pulse Rate 91 H 10/11/16 10:25 Respiratory Rate 18 10/11/16 10:25 Blood Pressure 113/61 10/11/16 10:25 O2 Sat by Pulse Oximetry (%) 98 10/10/16 14:03 Constitutional: Yes: Other Eyes: Yes: Conjunctiva Clear HENT: Yes: Atraumatic Neck: Yes: Supple Cardiovascular: Yes: Regular Rate and Rhythm Respiratory: Yes: Regular, On Nasal O2, Poor Air Entry, Rhonchi Gastrointestinal: Yes: Normal Bowel Sounds, Soft Musculoskeletal: Yes: Other Extremities: Yes: Other (bilateral cellulitis of the leg multiple wounds on the rt leg draianing) Integumentary: Yes: Erythema, Venous Stasis Changes Wound/Incision: Yes: Dressing Removed, Draining, Other (wounds looked at multiple present painful) Neurological: Yes: Alert, Other Psychiatric: Yes: Alert, Other Labs: CBC, BMP 10/11/16 07:45 10/11/16 07:45 Imaging - Results Chest X-ray: Report Reviewed, Image Reviewed X-ray: Report Reviewed, Image Reviewed Cat Scan: Report Reviewed, Image Reviewed Assessment/Plan this patient with terminal gauger ulcers on the leg with alcohol intoxication now admitted because of that with bilateral cellulitits of the legs with worsening of the wounds of the leg which are painful non healing ulcer of the rt leg bilateral cellulitits of the leg etoh intoxication lethargy plan will start patient on abx leg elevation 'wound care aspiration precautions withdrawal prevention rest as per primary team
[2016-10-11] MEDS: SODIUM CHLORIDE 1,000 ML IV SCH (13:43)
[2016-10-11] MEDS: chlordiazePOXIDE HCL 25 MG CAPSULE PO SCH ×3 (13:43→22:42)
[2016-10-11] MEDS: NADOLOL 20 MG TABLET (FP) PO SCH (16:47)
[2016-10-11] MEDS ORDERED: PIPERACILLIN/TAZOBACTAM 3.375 GM VIAL IVPB ONE (17:17)
[2016-10-11] MEDS: PIPERACILLIN/TAZOB 3.375 GM 3.375 GM in DEXTROSE 5%-WATER - 50 ML IVPB SCH (17:23)
--- NOTE | 2016-10-11 18:26 | EKG ---
Test Reason : Blood Pressure : / mmHG Vent. Rate : 080 BPM Atrial Rate : 080 BPM P-R Int : 134 ms QRS Dur : 088 ms QT Int : 426 ms P-R-T Axes : 002 001 021 degrees QTc Int : 491 ms NORMAL SINUS RHYTHM NONDIAGNOSTIC Q WAVE IN AND aVL PROLONGED QT ABNORMAL ECG WHEN COMPARED WITH ECG OF 10-OCT-2016 14:50, NO SIGNIFICANT CHANGE WAS FOUND Confirmed by LUIS M WARE MD ([id number]) on 10/11/2016 6:26:18 PM Referred By: SUGEY AGUAYO Confirmed By:LUIS M WARE MD
--- NOTE | 2016-10-11 19:12 | EKG ---
Test Reason : Blood Pressure : / mmHG Vent. Rate : 092 BPM Atrial Rate : 092 BPM P-R Int : 130 ms QRS Dur : 088 ms QT Int : 386 ms P-R-T Axes : 073 000 030 degrees QTc Int : 477 ms NORMAL SINUS RHYTHM T INVERSIONS IN V2 WHEN COMPARED WITH ECG OF 29-SEP-2016 01:44, T WAVES ARE INVERTED IN V2 REPEAT EKG IF CLINICALLY INDICATED Confirmed by LUIS M WARE MD ([id number]) on 10/11/2016 7:12:31 PM Referred By: Confirmed By:LUIS M WARE MD
--- NOTE | 2016-10-11 19:21 | CONSULT ---
Consult Detox [facility] Reason for Current Admission/Consult: pt with h/o cirrhosis, hcv, chronic alcoholism on methadone treatment who was found with AMS and brought to ED. - History History of Present Illness: 46 y/o m pt with multiple admissions for encephalopathy, cirrhosiis ,hcv , chronic alcoholism , kristi methadone main. with chronic rt lower extremity cellulitis , esophageal varices who was found unresponsive and brought to ED. - History Source History Provided By: Patient, Family Member, Medical Record Limitations to Obtaining History: Clinical Condition - Alcohol/Substance Use Hx Alcohol Use: Yes (beer 4 / d) Hx Substance Use: Yes (h/o opioid dep. 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 moist no tremor 's + asterixis rt lower extremity bandage in place CIWA Score - CIWA Score Nausea/Vomitin-Mild Nausea/No Vomiting Muscle Tremors: 1-None Visible, but [place] Anxiety: 1-Mildly Anxious Agitation: 1-Slight > Activity Paroxysmal Sweats: 1-Minimal Palms Moist Orientation: 2-Disoriented Date<2 days Tacttile Disturbances: 1-Very Mild Itch/Numbness Auditory Disturbances: 0-None Visual Disturbances: 0-None Headache: 0-None Present CIWA-Ar Total Score: 8 Assessment Plan - Diagnosis (1) Altered mental status Status: Acute Qualifiers: Altered mental status type: somnolence Qualified Code(s): R40.0 - Somnolence (2) Cellulitis Status: Chronic Qualifiers: Site of cellulitis: extremity Site of cellulitis of extremity: lower extremity Laterality: right Qualified Code(s): L03.115 - Cellulitis of right lower limb (3) Liver cirrhosis Status: Chronic Qualifiers: Hepatic cirrhosis type: alcoholic cirrhosis (4) Opioid dependence on agonist therapy Status: Chronic (5) Chronic alcoholism Status: Chronic - Plan Plan: cont. alcohol detox with librium protocol cont thiamine 100mg po/d cont folic aciid 1mg/d strongly encourage in pt rehab after d/c -[facility] librium 10mg po q 6h x 4 doses starting 10/14/16 @11:00 am - Medication Detox Regimen/Protocol: Librium
--- NOTE | 2016-10-11 19:32 | CON.PSY ---
Psychiatry Consult Chief Complaint: Patient with a history of Alcoholism admitted with Chronic Cellulitis. seen for capacity, pt wanted to sign out. Symptoms: reports: Irritability - Previous Psychiatric Treatment Outpatient: None Inpatient: None - Previous Substance Abuse Treatment Outpatient: None Inpatient: None - Reason for Previous Treatment Reason for Previous Treatment: Alcohol Abuse - Current Medications Current Medications: Active Medications Ascorbic Acid (Vitamin C -) 500 mg PO DAILY [facility] Last Admin: 10/11/16 10:28 Dose: 500 mg Chlordiazepoxide HCl (Librium -) 25 mg PO Q4H PRN PRN Reason: WITHDRAWAL(CONT SUBST) Stop: 10/14/16 10:39 Chlordiazepoxide HCl (Librium -) 50 mg PO [id number] KENDRICK Stop: 10/12/16 05:01 Last Admin: 10/11/16 17:23 Dose: 50 mg Chlordiazepoxide HCl (Librium -) 25 mg PO [id number] KENDRICK Stop: 10/13/16 05:01 Chlordiazepoxide HCl (Librium -) 15 mg PO [id number] [facility] Stop: 10/14/16 05:01 Folic Acid (Folic Acid -) 1 mg PO DAILY [facility] Last Admin: 10/11/16 10:29 Dose: 1 mg Heparin Sodium (Porcine) (Heparin -) 5,000 unit SQ Q8H [facility] Last Admin: 10/11/16 18:04 Dose: 5,000 unit Sodium Chloride (Normal Saline -) 1,000 mls @ 100 mls/hr IV ASDIR [facility] Last Admin: 10/11/16 13:43 Dose: 100 mls/hr Vancomycin HCl 1,250 mg/ (Dextrose) 250 mls @ 166.667 mls/hr IVPB DAILY@1200 KENDRICK PRN Reason: Protocol Piperacillin Sod/Tazobactam (Sod 3.375 gm/ Dextrose) 50 mls @ 100 mls/hr IVPB Q8H-IV KENDRICK PRN Reason: Protocol Last Admin: 10/11/16 17:23 Dose: 100 mls/hr Lactulose (Cephulac (Oral Use)) 30 gm PO QID [facility] Methadone HCl (Dolophine -) 10 mg PO DAILY [facility] Last Admin: 10/11/16 10:28 Dose: 10 mg Multivitamins/Minerals/Vitamin C (Tab-A-Vit -) 1 tab PO DAILY [facility] Last Admin: 10/11/16 10:29 Dose: 1 tab Nadolol (Corgard -) 10 mg PO DAILY [facility] Last Admin: 10/11/16 16:47 Dose: 10 mg Pantoprazole Sodium (Protonix -) 40 mg PO DAILY [facility] Last Admin: 10/11/16 10:28 Dose: 40 mg Potassium Chloride (K-Dur -) 20 meq PO BID [facility] Rifaximin (Xifaxan -) 550 mg PO BID [facility] Last Admin: 10/11/16 10:29 Dose: 550 mg Thiamine HCl (Vitamin B1 -) 100 mg PO DAILY [facility] Last Admin: 10/11/16 10:29 Dose: 100 mg - Allergies Allergies: Allergies Allergy/AdvReac Type Severity Reaction Status Date / Time No Known Allergies Allergy Verified 09/29/16 00:43 - Current Living Status Usual Living Arrangement: Alone - Current Mental Status Evaluation Appearance: Disheveled Attitude: Guarded - Affect Affect: Constrictive Appropriateness: Appropriate to Content - Mood Mood: Irritable - Speech/Language Expressive: Coherent - Psychomotor Activity Psychomotor Activity: Normal - Thought Process Thought Process: Intact - Thought Content Hallucinations: Absent Delusions: Absent - Self Perception Self Perception: No Impairment - Cognition Attention: Alert Orientation: Time Memory, Immediate Recall: Intact Memory, Short Term: 2/3 Memory, Remote with Promptin/3 - Concentration Serial Sevens Intact: No Simple Calculations Intact: No - Abstraction Proverb Interpretation: Intact Judgement: Minimally Impaired - Insight Insight: Intact - Impulse Control Impulse Control: Minimally Impaired - Suicidal Ideation Suicidal Ideation: No - Homicidal Ideation Homicidal Ideation: No Assessment/Plan Patient is not suicidal, can sign out AMA if he wants.
[2016-10-11] MEDS: POTASSIUM CHLORIDE TABS 20 MEQ TABLET.ER (FP) PO SCH (21:09)
[2016-10-12] MEDS ORDERED: PIPERACILLIN/TAZOBACTAM 3.375 GM VIAL IVPB ONE ×2 (02:31→10:30)
[2016-10-12] MEDS ORDERED: DEXTROSE 5%-WATER - 50 ML IVPB ONE ×2 (02:31→10:30)
[2016-10-12] MEDS: PIPERACILLIN/TAZOB 3.375 GM 3.375 GM in DEXTROSE 5%-WATER - 50 ML IVPB SCH ×2 (02:41→10:49)
[2016-10-12] MEDS: SODIUM CHLORIDE 1,000 ML IV SCH (02:43)
[2016-10-12] MEDS: HEPARIN NA (PORCINE) 5,000 UNITS/ML 1ML VIAL SQ SCH ×2 (02:58→10:49)
[2016-10-12] MEDS ORDERED: chlordiazePOXIDE 5 MG CAPSULE PO SCH (05:00)
[2016-10-12] MEDS: chlordiazePOXIDE HCL 25 MG CAPSULE PO SCH ×2 (05:19→07:29)
[2016-10-12 06:58] VITALS: BP 100/60; PULSE 90; TEMP 99.2
[2016-10-12] MEDS: CEFAZOLIN 1 GM in DEXTROSE 5%-WATER - 50 ML IVPB SCH (07:28)
[2016-10-12 08:01] LABS: BASOPHIL 0.8 % (0-2.0); EOSINOPHIL 3.5 % (0-4.5); MCH 22.8 pg (25.7-33.7); MCHC 31.5 g/dl (32.0-35.9); MEAN CELL VOLUME 72.3 fl (80-96); MEAN PLT VOLUME 8.3 fl (7.5-11.1); NEUTROPHILS 64.2 % (42.8-82.8); PLATELET COUNT 90 K/MM3 (134-434); RDW 22.9 % (11.9-15.9); WHITE BLOOD COUNT 5.5 K/mm3 (4.0-10.0)
[2016-10-12 08:28] LABS: ALBUMIN 1.4 g/dl (3.4-5.0); ALK PHOS 102 U/L (45-117); ANION GAP 4 (8-16); BILIRUBIN,TOTAL 1.1 mg/dL (0.2-1.0); CALCIUM 7.3 mg/dL (8.5-10.1); CO2 28 mmol/L (21-32); CREATININE 0.6 mg/dL (0.7-1.3); GLUCOSE,RANDOM 82 mg/dL (74-106); MAGNESIUM 1.9 mg/dL (1.8-2.4); SGOT/AST 49 U/L (15-37); SGPT/ALT 19 U/L (12-78); TOT PROT 5.3 g/dl (6.4-8.2)
[2016-10-12] MEDS ORDERED: PT OWN MED DRAWER 7, Y5N ONE (10:30)
[2016-10-12] MEDS: RIFAXIMIN 550 MG TABLET (UD) PO SCH (10:48)
[2016-10-12] MEDS: POTASSIUM CHLORIDE TABS 20 MEQ TABLET.ER (FP) PO SCH (10:48)
[2016-10-12] MEDS: FOLIC ACID 1 MG TABLET (FP) PO SCH (10:48)
[2016-10-12] MEDS: ASCORBIC ACID 500 MG TABLET (FP) PO SCH (10:48)
[2016-10-12] MEDS: NADOLOL 20 MG TABLET (FP) PO SCH (10:48)
[2016-10-12] MEDS: PANTOPRAZOLE 40 MG TABLET (FP) PO SCH (10:48)
[2016-10-12] MEDS: THIAMINE HCL 100 MG TABLET (FP) PO SCH (10:48)
[2016-10-12] MEDS: MULTIVITAMINS (DAILY MVI) TABLET (FP) PO SCH (10:49)
[2016-10-12] MEDS: LACTULOSE 20 GM/30 ML UDC (FOR ORAL USE ONLY) PO SCH (10:49)
[2016-10-12] MEDS: METHADONE HCL 10 MG TABLET PO SCH (10:49)
[2016-10-12] MEDS ORDERED: chlordiazePOXIDE HCL 25 MG CAPSULE PO SCH (11:00)
[2016-10-12] MEDS ORDERED: VANCOMYCIN 1,250 MG in DEXTROSE 5%-WATER - 250 ML IVPB SCH (12:00)
--- NOTE | 2016-10-12 12:37 | DS ---
Physical Exam: SUBJECTIVE: Patient seen and examined OBJECTIVE: Vital Signs Period Temp Pulse Resp BP Sys/Choi Pulse Ox Last 24 Hr 98.0 F-99.2 F 78-90 18-20 100-136/60-73 97 PHYSICAL EXAM GENERAL: The patient is awake, alert, and fully oriented, in no acute distress. HEAD: Normal with no signs of trauma. EYES: PERRL, extraocular movements intact, sclera anicteric, conjunctiva clear. ENT: Ears normal, nares patent, oropharynx clear without exudates, moist mucous membranes. NECK: Trachea midline, full range of motion, supple. LUNGS: Breath sounds equal, clear to auscultation bilaterally, no wheezes, no crackles, no accessory muscle use. HEART: Regular rate and rhythm, S1, S2 without murmur, rub or gallop. ABDOMEN: Soft, nontender, nondistended, normoactive bowel sounds, no guarding, no rebound, no hepatosplenomegaly, no masses. EXTREMITIES: 2+ pulses, warm, well-perfused, no edema. NEUROLOGICAL: Cranial nerves II through XII grossly intact. Normal speech, gait not observed. PSYCH: Normal mood, normal affect. SKIN: Warm, dry, normal turgor, no rashes or lesions noted. LABS Laboratory Results - last 24 hr 10/11/16 10/11/16 10/12/16 17:20 18:48 06:00 WBC 5.5 RBC 3.67 L Hgb 8.3 L Hct 26.5 L MCV 72.3 L MCH 22.8 L MCHC 31.5 L RDW 22.9 H Plt Count 90 L MPV 8.3 Neutrophils % 64.2 Lymphocytes % 17.1 D Monocytes % 14.4 H Eosinophils % 3.5 Basophils % 0.8 Sodium Potassium 3.4 L Chloride Carbon Dioxide Anion Gap BUN Creatinine Creat Clearance w eGFR Random Glucose Calcium Magnesium Total Bilirubin AST ALT Alkaline Phosphatase Ammonia 71.45 H Total Protein Albumin 10/12/16 10/12/16 06:00 06:00 WBC RBC Hgb Hct MCV MCH MCHC RDW Plt Count MPV Neutrophils % Lymphocytes % Monocytes % Eosinophils % Basophils % Sodium 144 Potassium 3.6 Chloride 112 H Carbon Dioxide 28 Anion Gap 4 L BUN 6 L Creatinine 0.6 L D Creat Clearance w eGFR > 60 Random Glucose 82 Calcium 7.3 L Magnesium 1.9 Total Bilirubin 1.1 H D AST 49 H ALT 19 Alkaline Phosphatase 102 Ammonia 35.3 H Total Protein 5.3 L Albumin 1.4 L HOSPITAL COURSE: Date of Admission:10/10/16 Date of Discharge: 10/12/16 Discharge Summary Reason For Visit: WOUND INFECTION AMS Current Active Problems Altered mental status (Acute) Cellulitis of right leg (Acute) Hyperammonemia (Acute) Wound infection (Acute) Chronic alcoholism (Chronic) Liver failure (Chronic) Hospital Course: AMA - Instructions Referrals: Garcia Arteaga [Primary Care Provider] - Disposition: AGAINST MEDICAL ADVICE - Home Medications Comprehensive Discharge Medication List: Ambulatory Orders Methadone [Dolophine -] 10 mg PO DAILY 07/27/16 Pantoprazole Sodium [Protonix] 40 mg PO DAILY 09/29/16 Folic Acid - 1 mg PO DAILY #30 tablet 10/02/16 Nadolol [Corgard -] 10 mg PO DAILY #30 tablet 10/02/16 Thiamine HCl [Vitamin B1 -] 100 mg PO DAILY #30 tablet 10/02/16 Ascorbic Acid [Vitamin C -] 500 mg PO DAILY #30 tablet 10/05/16 Cephalexin Monohydrate [Keflex -] 500 mg PO BID #20 mg 10/05/16 Lactulose (Oral Use) [Cephulac -] 30 gm PO TID #90 gm 10/05/16 Multivitamins [Multivit ([facility] Formulary)] 1 tab PO DAILY #30 tab 10/05/16 Rifaximin [Xifaxan -] 550 mg PO BID #60 tablet 10/05/16 - Discharge Referral Referred to [facility] No
[2016-10-13] MEDS ORDERED: chlordiazePOXIDE 5 MG CAPSULE PO SCH (11:00)
[2016-10-14] MEDS ORDERED: chlordiazePOXIDE 5 MG CAPSULE PO SCH (11:00)
== END 2016-10-12 13:04 | disposition left against medical advice (07) | DRG 720 ==
LOC: JER 13:51 → JERBED 18:43 → J6S 21:23
PROVIDERS: ADMIT Internal Medicine; ATTEND Registered Nurse
DX: A41.9 Sepsis, unspecified organism (principal); G93.41 Metabolic encephalopathy; L97.819 Non-pressure chronic ulcer of other part of right lower leg with unspecified severity; F11.20 Opioid dependence, uncomplicated; K72.90 Hepatic failure, unspecified without coma; B19.20 Unspecified viral hepatitis C without hepatic coma; L03.115 Cellulitis of right lower limb; D64.9 Anemia, unspecified; E87.6 Hypokalemia; M06.9 Rheumatoid arthritis, unspecified; F10.220 Alcohol dependence with intoxication, uncomplicated; K70.30 Alcoholic cirrhosis of liver without ascites
CPT/HCPCS: 36415; 70450-TC; 71010-TC; 73590-TC-RT; 80053; 80307; 82140; 82553; 83605; 83735; 84100; 84132; 84484; 85025; 85610; 87040; 87070; 87077; 87205; 93005; 93010; 93970-TC; 99284-25; J1644

== ENCOUNTER 2016-10-14 17:29 | Emergency (ER) | payer OTHER ==
[2016-10-14 17:44] VITALS: BP 123/70; PULSE 108; TEMP 98.9; BMI 31.8
--- NOTE | 2016-10-14 17:53 | PDOC ---
Attending Attestation - Resident Resident Name: GeoffreyCelso corbin - ED Attending Attestation I have performed the following: I have examined & evaluated the patient, The case was reviewed & discussed with the resident, I agree w/resident's findings & plan, Exceptions are as noted - HPI HPI: 46 yo M history EtOH abuse, cirrhosis, HCV, hepatic encephalopathy, chronic R lower leg wound presents with leg wound. He left hospital AMA 2 days ago for leg wound, has filled his prescription for bactrim but has not yet started it. He left AMA after having psychiatry consult for capacity, he was cleared. He denies complaints at present, does not want to stay for evaluation. Denies fever , drainage. Wound was not dressed on ED arrival. - Physicial Exam PE: GENERAL: Awake, alert, and fully oriented, in no acute distress HEAD: No signs of trauma EYES: PERRLA, EOMI, sclera anicteric, conjunctiva clear ENT: Auricles normal inspection, hearing grossly normal, nares patent, oropharynx clear without exudates. Moist mucosa NECK: Normal ROM, supple, no lymphadenopathy, JVD, or masses LUNGS: Breath sounds equal, clear to auscultation bilaterally. No wheezes, and no crackles HEART: Regular rate and rhythm, normal S1 and S2, no murmurs, rubs or gallops ABDOMEN: Soft, nontender, normoactive bowel sounds. No guarding, no rebound. No masses EXTREMITIES: 3+ pitting edema to BLE, R lower leg with ulcerated lesion to posterior leg, mild serosanguineous drainage. +Surrounding cellulitis. Remainder of extremities with normal range of motion. No clubbing or cyanosis. No cords, erythema, or tenderness NEUROLOGICAL: Cranial nerves II through XII grossly intact. Normal speech, normal gait SKIN: Warm, Dry, normal turgor, no rashes or lesions noted. - Medical Decision Making Pt was brought to hospital against his wishes, refused evaluation and treatment in ED. He was evaluated by psychiatry in the last 2 days, found to have decision -making capacity. Explained consequences of leaving without treatment. Patient understands, and still wishes to leave. Encouraged him to take his medication.
--- NOTE | 2016-10-14 19:10 | PDOC ---
History of Present Illness - General Chief Complaint: Wound Infection Stated Complaint: Altered Mental Status Time Seen by Provider: 10/14/16 17:51 - History of Present Illness Initial Comments: 10/14/16 19:35 Patient is a 46M with history of etoh abuse, alcohol withdrawal, HCV, cirrhosis , varices, hepatic encephalopathy and chronic leg edema arrived here today for a leg wound. He states that he did not want to come to the hospital today, and that someone else called EMS. He states that he's taking his antibiotics and his wound is getting better. He denies nausea, vomiting, fevers and chills. He denies chest pain and shortness of breath. Past History - Past Medical History Allergies/Adverse Reactions: Allergies Allergy/AdvReac Type Severity Reaction Status Date / Time No Known Allergies Allergy Verified 10/14/16 17:44 Home Medications: Ambulatory Orders Ciprofloxacin HCl [Cipro] 500 mg PO DAILY 10/14/16 Oxycodone HCl/Acetaminophen [Endocet 5-325 Tablet] 1 each PO Q6H PRN 10/14/16 Sulfamethoxazole/Trimethoprim [Bactrim Ds -] 1 tab PO DAILY 10/14/16 Anemia: No Asthma: No Cancer: No Cardiac Disorders: No CVA: No COPD: No CHF: No Dementia: No Diabetes: No Dialysis: No GI Disorders: Yes (GI BLEED, SBO) Disorders: No HTN: Yes Hypercholesterolemia: No HIV: No Liver Disease: Yes (HEPATITS C) Seizures: No Thyroid Disease: No - Surgical History Abdominal Surgery: Yes (GI BLEED/HERNIA, Partial SBO resection) Appendectomy: No Cardiac Surgery: No Cholecystectomy: No Lung Surgery: No Neurologic Surgery: Yes Orthopedic Surgery: No - Immunization History Immunization Up to Date: No - Psycho/Social/Smoking Cessation Hx Anxiety: No Suicidal Ideation: No Smoking Status: Yes Smoking History: Current some day smoker Have you smoked in the past 12 months: Yes Number of Cigarettes Smoked Daily: 3 If you are a former smoker, when did you quit?: 06/11/2013 Information on smoking cessation initiated: No 'Breaking Loose' booklet given: 07/26/16 Hx Alcohol Use: Yes Drug/Substance Use Hx: Yes Substance Use Type: Alcohol, Opiates Hx Substance Use Treatment: Yes ([facility]MTP) Review of Systems - Review of Systems Comments:: 10/14/16 19:39 GENERAL/CONSTITUTIONAL: No fever or chills. No weakness. HEAD, EYES, EARS, NOSE AND THROAT: No change in vision. No sore throat. CARDIOVASCULAR: No chest pain or shortness of breath RESPIRATORY: No cough, wheezing, or hemoptysis. GASTROINTESTINAL: No nausea, vomiting, diarrhea or constipation. GENITOURINARY: No dysuria, frequency, or change in urination. MUSCULOSKELETAL: No joint or muscle swelling or pain. No neck or back pain. SKIN: No rash NEUROLOGIC: No headache, vertigo, loss of consciousness, or change in strength/ sensation. *Physical Exam - Vital Signs Last Vital Signs Temp Pulse Resp BP Pulse Ox 98.9 F 108 H 20 123/70 97 10/14/16 17:43 10/14/16 17:43 10/14/16 17:43 10/14/16 17:43 10/14/16 17:43 - Physical Exam Comments: 10/14/16 19:40 GENERAL: Awake, alert, and fully oriented, in no acute distress HEAD: No signs of trauma, normocephalic, atraumatic EYES: PERRLA, EOMI, sclera anicteric, conjunctiva clear ENT: Auricles normal inspection, hearing grossly normal, nares patent, oropharynx clear without exudates. Moist mucosa LUNGS: No distress, speaks full sentences, clear to auscultation bilaterally HEART: Tachycardic, regular rhythm, normal S1 and S2, no murmurs, rubs or gallops, peripheral pulses normal and equal bilaterally. ABDOMEN: Soft, nontender, normoactive bowel sounds. No guarding, no rebound. No masses EXTREMITIES: Large circumferential wound, about 15cm in length, with large amount of skin breakdown and necrosis. Neurovascularly intact distal to wound NEUROLOGICAL: Cranial nerves II through XII grossly intact. Normal speech, walks with cane, no focal sensorimotor deficits Medical Decision Making - Medical Decision Making 10/14/16 19:34 46M with history of etoh abuse, etoh withdrawal, HCV, varices, hepatic encephalopathy and chronic leg edema here today with leg wound. Recently hospitalized for wound, left AMA. Alert, oriented to person, place, self and time. Expressed understanding that leaving now without treatment will risk loss of limb and . Left AMA. *DC/Admit/Observation/Transfer Diagnosis at time of Disposition: Open wound, Wound infection, Edema - Discharge Dispostion Disposition: AGAINST MEDICAL ADVICE Condition at time of disposition: Poor Admit: No
[2016-10-14] MEDS ORDERED: SODIUM CHLORIDE 0.9% 1000 ML INFUS.BAG IV STA (19:12)
[2016-10-14] MEDS ORDERED: PIPERACILLIN/TAZOB 4.5 GM/100 ML PRE-DOCKED IVPB ONE (19:15)
[2016-10-14] MEDS ORDERED: VANCOMYCIN 1,000 MG in DEXTROSE 5%-WATER - 250 ML IVPB SCH (22:00)
== END 2016-10-14 19:52 | disposition left against medical advice (07) ==
LOC: JER 17:29
DX: L97.811 Non-pressure chronic ulcer of other part of right lower leg limited to breakdown of skin (principal); L03.115 Cellulitis of right lower limb; R60.0 Localized edema; B18.2 Chronic viral hepatitis C; K74.69 Other cirrhosis of liver; F10.10 Alcohol abuse, uncomplicated
CPT/HCPCS: 99282-25

== ENCOUNTER 2016-11-13 23:57 | Inpatient (IN) | payer OTHER ==
[2016-11-14] MEDS ORDERED: SODIUM CHLORIDE 0.9% 1000 ML INFUS.BAG IV ONE (01:11)
--- NOTE | 2016-11-14 01:15 | PDOC ---
History of Present Illness - General Chief Complaint: Pain, Acute Stated Complaint: PAIN Time Seen by Provider: 11/14/16 00:35 History Source: Patient, Significant Other - History of Present Illness Initial Comments: 11/14/16 01:15 Patient is a 46-year-old male with history of chronic EtOH abuse, cirrhosis, varices, hep C, IVDA, substance abuse, chronic wound to RLE, SBO, partial small bowel resection, facial trauma - fracture orbit s/p ORIF/w metal plates, brought by his girlfriend for AMS. Patient is a poor historian due to somnolence history obtained from the girlfriend. Girlfriend states that she found him "unconscious" in someone's hallway today, curled up and shaking. States the patient has been having right lower leg swelling for about and consequently went to [facility] for evaluation and was discharged from the emergency room 2-3 days ago. Further states that in the past when he has been like this at his ammonia has been high. She does not know if he has been taking his lactulose. Also states that he was given IV antibiotics, and when discharged from the hospital he was given antibiotics but does not think that he took them. She also thinks that he is back on his methadone and continued about a month ago. Based on review of the chart patient was admitted to the hospital one month ago for similar symptoms. Denies drinking today PMD: CARLOS ENRIQUE [facility]: Dr. Coty Garcia PMH: As above PSOCHx: (+) etoh abuse, IVDA, polysubstance abuse, ALL: NKDA GENERAL/CONSTITUTIONAL: [No fever or chills. (+) weakness. No weight change.] HEAD, EYES, EARS, NOSE AND THROAT: [No change in vision. No ear pain or discharge. No sore throat.] CARDIOVASCULAR: [No chest pain or shortness of breath.] RESPIRATORY: [No cough, wheezing, or hemoptysis.] GASTROINTESTINAL: [No nausea, vomiting, diarrhea or constipation. No rectal bleeding (+) abdominal distension.] GENITOURINARY: [No dysuria, frequency, or change in urination.] MUSCULOSKELETAL: [No joint or muscle swelling or pain. No neck or back pain.] SKIN AND BREASTS: (+) Chronic RLE wound, No rash or easy bruising.] NEUROLOGIC: [No headache, vertigo, loss of consciousness, or loss of sensation.] PSYCHIATRIC: [No depression or anxiety.] ENDOCRINE: [No increased thirst. No abnormal weight change.] HEMATOLOGIC/LYMPHATIC: [No anemia, easy bleeding, or history of blood clots.] ALLERGIC/IMMUNOLOGIC: [No hives or skin allergy. No latex allergy.] GENERAL: [The patient is awake, alert, and fully oriented, in no acute distress , (+) somnolent.] HEAD: [Normal with no signs of trauma.] EYES: [Pupils equal, round and reactive to light, extraocular movements intact, sclera anicteric, conjunctiva clear.] ENT: [Ears normal, nares patent, oropharynx clear without exudates. Moist mucous membranes.] NECK: [Normal range of motion, supple without lymphadenopathy, JVD, or masses.] LUNGS: [Breath sounds equal, clear to auscultation bilaterally. No wheezes, and no crackles.] HEART: [Regular rate and rhythm, normal S1 and S2 without murmur, rub.] ABDOMEN: [Soft, (+) distended, nontender, normoactive bowel sounds. No guarding, no rebound. No masses.] EXTREMITIES: [Normal range of motion, (+) b/l edema , multiple wound to the RLE with a 4x 7cm necrotic wound to the last aspect of the leg, (+) erythema and tenderness to RLE. No clubbing or cyanosis, pulses intact. NEUROLOGICAL: (+) slurred speech, unsteady gait, arousable PSYCH: [Normal mildy irritable mood when aroused. SKIN: [Warmth to RLE, (+) tense edema, choronic change to b/l lower ext, wound to RLE as above] Past History - Past Medical History Allergies/Adverse Reactions: Allergies Allergy/AdvReac Type Severity Reaction Status Date / Time No Known Allergies Allergy Verified 10/14/16 17:44 Home Medications: Ambulatory Orders Unobtainable [Unobtainable] 11/14/16 Anemia: No Asthma: No Cancer: No Cardiac Disorders: No CVA: No COPD: No CHF: No Dementia: No Diabetes: No Dialysis: No GI Disorders: Yes (GI BLEED, SBO) Disorders: No HTN: Yes Hypercholesterolemia: No Liver Disease: Yes (HEPATITS C) Seizures: No Thyroid Disease: No - Surgical History Abdominal Surgery: Yes (GI BLEED/HERNIA, Partial SBO resection) Appendectomy: No Cardiac Surgery: No Cholecystectomy: No Lung Surgery: No Neurologic Surgery: Yes Orthopedic Surgery: No - Immunization History Immunization Up to Date: No - Suicide/Smoking/Psychosocial Hx Smoking Status: Yes Smoking History: Current some day smoker Have you smoked in the past 12 months: No Number of Cigarettes Smoked Daily: 3 If you are a former smoker, when did you quit?: 06/11/2013 Information on smoking cessation initiated: No 'Breaking Loose' booklet given: 07/26/16 Hx Alcohol Use: Yes Drug/Substance Use Hx: Yes Substance Use Type: Alcohol, Opiates Hx Substance Use Treatment: Yes (MMTP) *Physical Exam - Vital Signs Last Vital Signs Temp Pulse Resp BP Pulse Ox 98.3 F 96 H 18 132/77 100 11/14/16 00:43 11/14/16 00:43 11/14/16 00:43 11/14/16 00:43 11/14/16 00:43 ED Treatment Course - LABORATORY CBC & Chemistry Diagram: 11/14/16 01:22 11/14/16 02:23 - RADIOLOGY Radiology Studies Ordered: Category Date Time Status CHEST X-RAY PORTABLE* [RAD] Stat Radiology 11/14/16 01:11 Ordered Medical Decision Making - Medical Decision Making 11/14/16 00:35 Patient is a 46-year-old male with history of chronic EtOH abuse, ascites, cirrhosis, varices, hep C, IVDA, substance abuse, chronic wound to RLE, SBO, partial small bowel resection, facial trauma - fracture orbit s/p ORIF/w metal plates, brought by his girlfriend for AMS. Base on prior history DDx inclu but not limited to substance withdrawal, sepsis, wound infection, intoxication. will initiate SIRS protocol but will withhold sepsis fluid due to h/o ascites Ancef 1 gm IV, admission EKG SR rate 94, NAD, prolonged QT 500, (-) ST-T wave change CXR no acute infiltrates Ancef 1 g given for wound infection labs review not to have a lactic elevation but hold fluid due to ascites, and liver disease K+ 3.1 will given runs x 2 Elevated ammonia level, however lactulose helped due to patient's somnolence. Discussed with hospitalist will admit to Dr. Tapia *DC/Admit/Observation/Transfer Diagnosis at time of Disposition: Wound infection, Cellulitis of right leg, Polysubstance abuse, Hyperammonemia, Acute hypokalemia Altered mental status Qualifiers: Altered mental status type: somnolence Qualified Code(s): R40.0 - Somnolence; R40.0 - Somnolence - Discharge Dispostion Condition at time of disposition: Stable Admit: Yes
[2016-11-14 01:23] VITALS: BMI 31.8
[2016-11-14 01:47] LABS: BASOPHIL 0.7 % (0-2.0); EOSINOPHIL 4.8 % (0-4.5); MCH 22.4 pg (25.7-33.7); MCHC 31.8 g/dl (32.0-35.9); MEAN CELL VOLUME 70.5 fl (80-96); MEAN PLT VOLUME 8.3 fl (7.5-11.1); NEUTROPHILS 62.4 % (42.8-82.8); PLATELET COUNT 137 K/MM3 (134-434); RDW 20.6 % (11.9-15.9); WHITE BLOOD COUNT 5.4 K/mm3 (4.0-10.0)
[2016-11-14 02:08] LABS: INR 1.7 (0.82-1.09); PROTHROMBIN TIME (PATIENT) 18.9 SEC (9.98-11.88)
[2016-11-14 02:10] LABS: ACTIVATED PTT 31.4 SECONDS (26.9-34.4)
[2016-11-14 03:00] LABS: ALBUMIN 1.9 g/dl (3.4-5.0); ALK PHOS 143 U/L (45-117); ANION GAP 12 (8-16); BILIRUBIN,TOTAL 1.5 mg/dL (0.2-1.0); CALCIUM 7.4 mg/dL (8.5-10.1); CO2 25 mmol/L (21-32); CREATININE 0.4 mg/dL (0.7-1.3); GLUCOSE,RANDOM 91 mg/dL (74-106); SGOT/AST 62 U/L (15-37); SGPT/ALT 34 U/L (12-78); TOT PROT 6.1 g/dl (6.4-8.2)
[2016-11-14 03:04] LABS: CPK 298 IU/L (39-308); TROPONIN I < 0.02 ng/ml (0.00-0.05)
[2016-11-14 03:08] LABS: URINE APPEARANCE SLCLOUDY; URINE BLOOD NEGATIVE (NEGATIVE); URINE GLUCOSE (UA) NEGATIVE (NEGATIVE); URINE KETONE NEGATIVE (NEGATIVE); URINE LEUK ESTERASE NEGATIVE (NEGATIVE); URINE NITRITE NEGATIVE (NEGATIVE); URINE UROBILINOGEN 4.0 E.U/dl mg/dL (0.2-1.0)
[2016-11-14 03:10] LABS: URINE COLOR YELLOW; URINE PROTEIN 1+ (NEGATIVE)
[2016-11-14] MEDS ORDERED: CEFAZOLIN 1 GM in DEXTROSE 5%-WATER - 50 ML IVPB ONE (03:15)
[2016-11-14 03:19] LABS: URINE MUCUS MANY; URINE RBC 2 /hpf (0-3); URINE WBC 3 /hpf (3-5)
[2016-11-14 03:20] LABS: URINE MARIJUANA THC NEGATIVE ng/ml (CUTOFF=50)
[2016-11-14] MEDS ORDERED: CEFAZOLIN (PRE-DOCKED) 50 ML IVPB ONE (03:34)
--- NOTE | 2016-11-14 03:48 | PN ---
Teaching Attending Note Name of Resident: Edmundo Ortez ATTENDING PHYSICIAN STATEMENT I saw and evaluated the patient. I reviewed the resident's note and discussed the case with the resident. I agree with the resident's findings and plan as documented. SUBJECTIVE: 46 yo M with pmhx of Etoh abuse, cirrhosis, varices, hep. C, IVDA, Chronic wound RLE, SBO s/p partial Small Bowel Resection, facial truma s/p ORIF w. metal plates, who presented with AMS. His girlfriend found him on the floor of someone's [place]. She states he has been having RLE wounds for 1 year. Pt. had multiple prior admissions and did not follow with wound care. OBJECTIVE: Physical: VS: Vital Signs Period Temp Pulse Resp BP Sys/Choi Pulse Ox Last 24 Hr 98.3 F 96 18 132/77 100 GEN: NAD, Resting in bed, AA0X3 HEENT: NCAT, PERRL, Throat without erythema or exudates CARD: RRR S1,S2 RESP: CTAB ABD: BSX4, NTD to palpation, midline scar, mild distension EXT: + 2 Pitting edema bilateral and equal. RLE 5x3 cm ulcer with serosanginous drainage, with surrounding erythema and edema. +2 Pulses bilateral LE. CBCD WBC 5.4 K/mm3 (4.0-10.0) 11/14/16 01:22 RBC 3.98 M/mm3 (4.00-5.60) L 11/14/16 01:22 Hgb 8.9 GM/dL (11.7-16.9) L 11/14/16 01:22 Hct 28.0 % (35.4-49) L 11/14/16 01:22 MCV 70.5 fl (80-96) L 11/14/16 01:22 MCHC 31.8 g/dl (32.0-35.9) L 11/14/16 01:22 RDW 20.6 % (11.9-15.9) H D 11/14/16 01:22 Plt Count 137 K/MM3 (134-434) D 11/14/16 01:22 MPV 8.3 fl (7.5-11.1) 11/14/16 01:22 CMP Sodium 144 mmol/L (136-145) 11/14/16 02:23 Potassium 3.1 mmol/L (3.5-5.1) L 11/14/16 02:23 Chloride 107 mmol/L (98-107) 11/14/16 02:23 Carbon Dioxide 25 mmol/L (21-32) 11/14/16 02:23 Anion Gap 12 (8-16) 11/14/16 02:23 BUN 5 mg/dL (7-18) L 11/14/16 02:23 Creatinine 0.4 mg/dL (0.7-1.3) L D 11/14/16 02:23 Creat Clearance w eGFR > 60 (>60) 11/14/16 02:23 Random Glucose 91 mg/dL (74-106) 11/14/16 02:23 Calcium 7.4 mg/dL (8.5-10.1) L 11/14/16 02:23 Total Bilirubin 1.5 mg/dL (0.2-1.0) H D 11/14/16 02:23 AST 62 U/L (15-37) H D 11/14/16 02:23 ALT 34 U/L (12-78) D 11/14/16 02:23 Alkaline Phosphatase 143 U/L (45-117) H D 11/14/16 02:23 Total Protein 6.1 g/dl (6.4-8.2) L 11/14/16 02:23 Albumin 1.9 g/dl (3.4-5.0) L D 11/14/16 02:23 CARDIAC ENZYMES Creatine Kinase 298 IU/L (39-308) 11/14/16 02:23 Troponin I < 0.02 ng/ml (0.00-0.05) 11/14/16 02:23 Urine Test Results Urine Color Yellow 11/14/16 02:00 Urine Appearance Slcloudy 11/14/16 02:00 Urine pH 5.0 (5.0-8.0) D 11/14/16 02:00 Urine Protein 1+ (NEGATIVE) H 11/14/16 02:00 Urine Glucose (UA) Negative (NEGATIVE) 11/14/16 02:00 Urine Ketones Negative (NEGATIVE) 11/14/16 02:00 Urine Blood Negative (NEGATIVE) 11/14/16 02:00 Urine Nitrite Negative (NEGATIVE) 11/14/16 02:00 Urine Bilirubin 2.0 (NEGATIVE) 11/14/16 02:00 Urine RBC 2 /hpf (0-3) 11/14/16 02:00 Urine WBC 3 /hpf (3-5) 11/14/16 02:00 Ur Epithelial Cells Rare /hpf (FEW) 11/14/16 02:00 Urine Mucus Many 11/14/16 02:00 EKG:NSR QtC 500 CXR- No acute Process(Pre-coto)read Home Medications Medication Instructions Recorded Unobtainable [Unobtainable] 11/14/16 ASSESSMENT AND PLAN: 46 yo M with hx. of polysubstance abuse, cirrhosis, etoh, varices, Hep. C, Chronic RLE wound who presented with AMS, found to have metabolic encephalopathy and chronic RLE wound. 1.) Metabolic Encephalopathy - Now resolved - C/W Lactulose and Rifaxamin 2.) RLE Cellulitis with chronic non healing ulcer - Wound care cx, - blood cx - C/W Ancef - ID consult 3.) Polysubstance Abuse - Banana Bag - CIWA w. Librium - Detox Consult - Thiamine and Folic A 4.) Microcytic Anemia - Fe studies done last visit - B12/Folate if not already done 5.) Lactic Acidosis - IVF-Gentle - Repeat 6.) Hypokalemia - Replete - Chk. Mg 2+ 7.) Hypoalbuminemia - Most likely from Cirrhosis - Monitor, Etoh cessation, nutrition 8.) Cirrhosis - Etoh Cessation 9.) Dvt Ppx - Mod Risk - Heparin [address] in Med-Sx
[2016-11-14] MEDS ORDERED: LACTULOSE 20 GM/30 ML UDC (FOR ORAL USE ONLY) PO ONE (04:07)
[2016-11-14] MEDS ORDERED: KCL 10 MEQ IVPB 100 ML IVPB SCH ×2 (04:15)
[2016-11-14 04:29] LABS: ANISOCYTOSIS 2+; HYPOCHROMIA 1+; PLATELET ESTIMATE ADEQUATE (NORMAL)
--- NOTE | 2016-11-14 04:31 | PDOC ---
*Physical Exam - Vital Signs Last Vital Signs Temp Pulse Resp BP Pulse Ox 98.3 F 96 H 18 132/77 100 11/14/16 00:43 11/14/16 00:43 11/14/16 00:43 11/14/16 00:43 11/14/16 00:43 ED Treatment Course - LABORATORY CBC & Chemistry Diagram: 11/14/16 01:22 11/14/16 02:23 - ADDITIONAL ORDERS Additional order review: Laboratory Results 11/14/16 11/14/16 11/14/16 02:45 02:23 02:23 PT with INR INR PTT (Actin FS) Sodium Potassium Chloride Carbon Dioxide Anion Gap BUN Creatinine Creat Clearance w eGFR Random Glucose Specific [place] Lactic Acid Calcium Total Bilirubin AST ALT Alkaline Phosphatase Ammonia Creatine Kinase Creatine Kinase Index CK-MB (CK-2) Troponin I Total Protein Albumin Urine Color Urine Appearance Urine pH Urine Protein Urine Glucose (UA) Urine Ketones Urine Blood Urine Nitrite Urine Bilirubin Urine Urobilinogen Urine RBC Urine WBC Ur Epithelial Cells Urine Mucus Urine Butalbital Ur Butalbital Confirm Opiates Screen Positive Urine Opiates Screen Meperidine Urine Normeperidine U Normeperidine GC/MS Urine Codeine U Codeine Confrm GC/MS Urine Morphine Morphine Confirm GC/MS Urine Hydrocodone Ur Hydrocodone (GC/MS) Oxycodone Urine Oxycodone Ur Oxycodone GC/MS Oxymorphone Confirm U Oxycodone/Oxymorphon Methadone Screen Negative Ur Methadone Ur Methadone Confirm Ur Hydromorphone Ur Hydromorphone (GC/MS) Urine Propoxyphene U Propoxyphene/M GC/MS Barbiturate Screen Negative Ur Barbiturates Screen Urine Barbiturates Phencyclidine Screen Negative Ur Phencyclidine (PCP) Ur PCP Confirm (GC/MS) Amphetamines Amphetamines Grp GC/MS Ur Amphetamines Screen Negative Urine Amphetamine Ur Amphetamines, Quant Methamphetamine Methamphetamine GC/MS MDMA (Ecstasy) Screen Negative Urine Amobarbital Ur Amobarbital GC/MS Urine Pentobarbital U Pentobarbital GC/MS Urine Phenobarbital U Phenobarbital GC/MS Urine Secobarbital U Secobarbital GC/MS Urine Alprazolam U OH-Alprazolam GC/MS Benzodiazepines Screen Positive U Benzodiazepines Scrn Urine Clonazepam U 7-Amino Clonazep GC/MS Ur Nordiazepam Ur Nordiazepam GC/MS Flurazepam Flurazepam Confirm Lorazepam Urine Lorazepam Ur Oxazepam U Oxazepam Confm GC/MS Urine Temazepam Ur Temazepam (GC/MS) Urine Triazolam Ur Triazolam (GC/MS) Meperidine (GC/MS) Ur Meperidine Cocaine Screen Positive Cocaine & Metabolite Urine Cocaine Benzoylecgonine Cannabinoids Urine Cannabinoids U Marijuana (THC) Screen Negative Urine Marijuana (THC) Drug Test Comment Alcohol, Quantitative 102.2 H* Urine Ethyl Alcohol Anti-A Titer Blood Type B NEGATIVE Antibody Screen Negative Spec Expiration Date 11/14/16 11/14/16 11/14/16 02:23 02:23 02:20 PT with INR INR PTT (Actin FS) Sodium 144 Cancelled Potassium 3.1 L Cancelled Chloride 107 Cancelled Carbon Dioxide 25 Cancelled Anion Gap 12 Cancelled BUN 5 L Cancelled Creatinine 0.4 L D Cancelled Creat Clearance w eGFR > 60 Cancelled Random Glucose 91 Cancelled Specific [place] Lactic Acid Calcium 7.4 L Cancelled Total Bilirubin 1.5 H D Cancelled AST 62 H D Cancelled ALT 34 D Cancelled Alkaline Phosphatase 143 H D Cancelled Ammonia 114.80 H Creatine Kinase 298 Creatine Kinase Index 0.7 CK-MB (CK-2) 2.140 Troponin I < 0.02 Total Protein 6.1 L Cancelled Albumin 1.9 L D Cancelled Urine Color Urine Appearance Urine pH Urine Protein Urine Glucose (UA) Urine Ketones Urine Blood Urine Nitrite Urine Bilirubin Urine Urobilinogen Urine RBC Urine WBC Ur Epithelial Cells Urine Mucus Urine Butalbital Ur Butalbital Confirm Opiates Screen Urine Opiates Screen Meperidine Urine Normeperidine U Normeperidine GC/MS Urine Codeine U Codeine Confrm GC/MS Urine Morphine Morphine Confirm GC/MS Urine Hydrocodone Ur Hydrocodone (GC/MS) Oxycodone Urine Oxycodone Ur Oxycodone GC/MS Oxymorphone Confirm U Oxycodone/Oxymorphon Methadone Screen Ur Methadone Ur Methadone Confirm Ur Hydromorphone Ur Hydromorphone (GC/MS) Urine Propoxyphene U Propoxyphene/M GC/MS Barbiturate Screen Ur Barbiturates Screen Urine Barbiturates Phencyclidine Screen Ur Phencyclidine (PCP) Ur PCP Confirm (GC/MS) Amphetamines Amphetamines Grp GC/MS Ur Amphetamines Screen Urine Amphetamine Ur Amphetamines, Quant Methamphetamine Methamphetamine GC/MS MDMA (Ecstasy) Screen Urine Amobarbital Ur Amobarbital GC/MS Urine Pentobarbital U Pentobarbital GC/MS Urine Phenobarbital U Phenobarbital GC/MS Urine Secobarbital U Secobarbital GC/MS Urine Alprazolam U OH-Alprazolam GC/MS Benzodiazepines Screen U Benzodiazepines Scrn Urine Clonazepam U 7-Amino Clonazep GC/MS Ur Nordiazepam Ur Nordiazepam GC/MS Flurazepam Flurazepam Confirm Lorazepam Urine Lorazepam Ur Oxazepam U Oxazepam Confm GC/MS Urine Temazepam Ur Temazepam (GC/MS) Urine Triazolam Ur Triazolam (GC/MS) Meperidine (GC/MS) Ur Meperidine Cocaine Screen Cocaine & Metabolite Urine Cocaine Benzoylecgonine Cannabinoids Urine Cannabinoids U Marijuana (THC) Screen Urine Marijuana (THC) Drug Test Comment Alcohol, Quantitative Urine Ethyl Alcohol Anti-A Titer Blood Type Antibody Screen Spec Expiration Date 11/14/16 11/14/16 11/14/16 02:00 02:00 01:22 PT with INR INR PTT (Actin FS) Sodium Potassium Chloride Carbon Dioxide Anion Gap BUN Creatinine Cancelled Creat Clearance w eGFR Random Glucose Specific [place] Cancelled Lactic Acid Calcium Total Bilirubin AST ALT Alkaline Phosphatase Ammonia Creatine Kinase Creatine Kinase Index CK-MB (CK-2) Troponin I Total Protein Albumin Urine Color Yellow Urine Appearance Slcloudy Urine pH 5.0 D Urine Protein 1+ H Urine Glucose (UA) Negative Urine Ketones Negative Urine Blood Negative Urine Nitrite Negative Urine Bilirubin 2.0 Urine Urobilinogen 4.0 e.u/dl Urine RBC 2 Urine WBC 3 Ur Epithelial Cells Rare Urine Mucus Many Urine Butalbital Cancelled Ur Butalbital Confirm Cancelled Opiates Screen Urine Opiates Screen Cancelled Meperidine Cancelled Urine Normeperidine Cancelled U Normeperidine GC/MS Cancelled Urine Codeine Cancelled U Codeine Confrm GC/MS Cancelled Urine Morphine Cancelled Morphine Confirm GC/MS Cancelled Urine Hydrocodone Cancelled Ur Hydrocodone (GC/MS) Cancelled Oxycodone Cancelled Urine Oxycodone Cancelled Ur Oxycodone GC/MS Cancelled Oxymorphone Confirm Cancelled U Oxycodone/Oxymorphon Cancelled Methadone Screen Ur Methadone Cancelled Ur Methadone Confirm Cancelled Ur Hydromorphone Cancelled Ur Hydromorphone (GC/MS) Cancelled Urine Propoxyphene Cancelled U Propoxyphene/M GC/MS Cancelled Barbiturate Screen Ur Barbiturates Screen Cancelled Urine Barbiturates Cancelled Phencyclidine Screen Ur Phencyclidine (PCP) Cancelled Ur PCP Confirm (GC/MS) Cancelled Amphetamines Cancelled Amphetamines Grp GC/MS Cancelled Ur Amphetamines Screen Urine Amphetamine Cancelled Ur Amphetamines, Quant Cancelled Methamphetamine Cancelled Methamphetamine GC/MS Cancelled MDMA (Ecstasy) Screen Urine Amobarbital Cancelled Ur Amobarbital GC/MS Cancelled Urine Pentobarbital Cancelled U Pentobarbital GC/MS Cancelled Urine Phenobarbital Cancelled U Phenobarbital GC/MS Cancelled Urine Secobarbital Cancelled U Secobarbital GC/MS Cancelled Urine Alprazolam Cancelled U OH-Alprazolam GC/MS Cancelled Benzodiazepines Screen U Benzodiazepines Scrn Cancelled Urine Clonazepam Cancelled U 7-Amino Clonazep GC/MS Cancelled Ur Nordiazepam Cancelled Ur Nordiazepam GC/MS Cancelled Flurazepam Cancelled Flurazepam Confirm Cancelled Lorazepam Cancelled Urine Lorazepam Cancelled Ur Oxazepam Cancelled U Oxazepam Confm GC/MS Cancelled Urine Temazepam Cancelled Ur Temazepam (GC/MS) Cancelled Urine Triazolam Cancelled Ur Triazolam (GC/MS) Cancelled Meperidine (GC/MS) Cancelled Ur Meperidine Cancelled Cocaine Screen Cocaine & Metabolite Cancelled Urine Cocaine Cancelled Benzoylecgonine Cancelled Cannabinoids Cancelled Urine Cannabinoids Cancelled U Marijuana (THC) Screen Urine Marijuana (THC) Cancelled Drug Test Comment Cancelled Alcohol, Quantitative Urine Ethyl Alcohol Cancelled Anti-A Titer Cancelled Blood Type Cancelled Antibody Screen Cancelled Spec Expiration Date Cancelled 11/14/16 11/14/16 01:22 01:13 PT with INR 18.90 H INR 1.70 H PTT (Actin FS) 31.4 Sodium Potassium Chloride Carbon Dioxide Anion Gap BUN Creatinine Creat Clearance w eGFR Random Glucose Specific [place] Lactic Acid 2.9 H* Calcium Total Bilirubin AST ALT Alkaline Phosphatase Ammonia Creatine Kinase Creatine Kinase Index CK-MB (CK-2) Troponin I Total Protein Albumin Urine Color Urine Appearance Urine pH Urine Protein Urine Glucose (UA) Urine Ketones Urine Blood Urine Nitrite Urine Bilirubin Urine Urobilinogen Urine RBC Urine WBC Ur Epithelial Cells Urine Mucus Urine Butalbital Ur Butalbital Confirm Opiates Screen Urine Opiates Screen Meperidine Urine Normeperidine U Normeperidine GC/MS Urine Codeine U Codeine Confrm GC/MS Urine Morphine Morphine Confirm GC/MS Urine Hydrocodone Ur Hydrocodone (GC/MS) Oxycodone Urine Oxycodone Ur Oxycodone GC/MS Oxymorphone Confirm U Oxycodone/Oxymorphon Methadone Screen Ur Methadone Ur Methadone Confirm Ur Hydromorphone Ur Hydromorphone (GC/MS) Urine Propoxyphene U Propoxyphene/M GC/MS Barbiturate Screen Ur Barbiturates Screen Urine Barbiturates Phencyclidine Screen Ur Phencyclidine (PCP) Ur PCP Confirm (GC/MS) Amphetamines Amphetamines Grp GC/MS Ur Amphetamines Screen Urine Amphetamine Ur Amphetamines, Quant Methamphetamine Methamphetamine GC/MS MDMA (Ecstasy) Screen Urine Amobarbital Ur Amobarbital GC/MS Urine Pentobarbital U Pentobarbital GC/MS Urine Phenobarbital U Phenobarbital GC/MS Urine Secobarbital U Secobarbital GC/MS Urine Alprazolam U OH-Alprazolam GC/MS Benzodiazepines Screen U Benzodiazepines Scrn Urine Clonazepam U 7-Amino Clonazep GC/MS Ur Nordiazepam Ur Nordiazepam GC/MS Flurazepam Flurazepam Confirm Lorazepam Urine Lorazepam Ur Oxazepam U Oxazepam Confm GC/MS Urine Temazepam Ur Temazepam (GC/MS) Urine Triazolam Ur Triazolam (GC/MS) Meperidine (GC/MS) Ur Meperidine Cocaine Screen Cocaine & Metabolite Urine Cocaine Benzoylecgonine Cannabinoids Urine Cannabinoids U Marijuana (THC) Screen Urine Marijuana (THC) Drug Test Comment Alcohol, Quantitative Urine Ethyl Alcohol Anti-A Titer Blood Type Antibody Screen Spec Expiration Date 11/14/16 01:22 RBC 3.98 L MCV 70.5 L MCHC 31.8 L RDW 20.6 H D MPV 8.3 Neutrophils % 62.4 Lymphocytes % 19.3 Monocytes % 12.8 H Eosinophils % 4.8 H Basophils % 0.7 - Medications Given in the ED: ED Medications Discontinued Medications Generic Name Dose Route Start Last Admin Trade Name Rafael PRN Reason Stop Dose Admin Cefazolin Sodium 1 gm/ 50 mls @ 100 mls/hr 11/14/16 03:15 11/14/16 03:37 Dextrose IVPB 11/14/16 03:44 100 mls/hr ONCE ONE Administration Sodium Chloride 500 ml 11/14/16 01:11 11/14/16 01:48 Normal Saline - IV 11/14/16 01:12 500 ml ONCE ONE Administration Medical Decision Making - Medical Decision Making 11/14/16 04:30 Pt seen by the Advanced Practice Provider under my direct supervision Ancillary studies reviewed I agree with plan as outlined by the Advanced Practice Provider *DC/Admit/Observation/Transfer Diagnosis at time of Disposition: Wound infection, Cellulitis of right leg, Polysubstance abuse, Hyperammonemia, Acute hypokalemia Altered mental status Qualifiers: Altered mental status type: somnolence Qualified Code(s): R40.0 - Somnolence - Discharge Dispostion Condition at time of disposition: Stable - Referrals Referrals: Garcia Arteaga [Primary Care Provider] - - Patient Instructions - Post Discharge Activity
[2016-11-14] MEDS ORDERED: LACTULOSE 20 GM/30 ML UDC (FOR ORAL USE ONLY) ONE (04:32)
[2016-11-14] MEDS ORDERED: KCL 10 MEQ IVPB 100 ML IVPB ONE ×2 (04:33→04:57)
[2016-11-14 04:40] LABS: VENOUS BLOOD GAS HCO3 25.9 meq/L (19-25); VENOUS PH 7.45 (7.32-7.42)
[2016-11-14] MEDS ORDERED: POTASSIUM CHLORIDE TABS 20 MEQ TABLET.ER (FP) PO ONE ×2 (04:48→05:02)
[2016-11-14] MEDS ORDERED: chlordiazePOXIDE HCL 25 MG CAPSULE PO PRN (04:55)
[2016-11-14] MEDS ORDERED: FOLIC ACID INJECTION - 1 MG, THIAMINE HCL 100 MG, MULTIVIT INJECTION ADULT 10 ML in SOD... IVPB ONE (05:04)
--- NOTE | 2016-11-14 05:21 | HP ---
Admitting History and Physical - Primary Care Physician PCP: Garcia Arteaga - Admission History of Present Illness: 46 yo M with pmhx of Etoh abuse, cirrhosis, varices, hep. C, IVDA, Chronic wound RLE, SBO s/p partial Small Bowel Resection, facial trauma s/p ORIF w. metal plates, who presented with AMS. history difficult to obtain from patient as Patient is intoxicated and a poor historian. Multiple admission for RLE cellultitis and non healing ulcer and altered mental status. Found in hallway of friends building by girlfriend shaking with a hoodie over his head. Patient was altered. Girlfriend states he usually gets like this when ammonia level gets too high. Patient denies nausea vomiting fevers. Girlfriend states he had some chills no measured fever. Recently discharged from [facility] ED with Abx which girlfriend believes he did not take. Girlfriend magdalenamax he is back on methadone now but his urine tox did not pick it up. It instead picked up benzos cocaine an opiates which patient denied using all. 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 Gastrointestinal: Yes: Ascites, Esophageal Varices, Other (Hepatitis, umbilical hernia) Hepatobiliary: Yes: Cirrhosis, Hepatitis C Psych: Yes: Addictions (alchohol Current, Heroin revcovery) Rheumatology: No: Fibromyalgia Dermatology: Yes: Other (rt lower extremity cellulitis) - Past Surgical History Past Surgical History: Yes: Colectomy - Smoking History Smoking history: Current some day smoker Have you smoked in the past 12 months: No Aproximately how many cigarettes per day: 3 If you are a former smoker, when did you quit?: 06/11/2013 - Alcohol/Substance Use Hx Alcohol Use: Yes Number of Drinks Daily: 3 History of Substance Use: reports: Heroin Home Medications - Allergies Allergies/Adverse Reactions: Allergies Allergy/AdvReac Type Severity Reaction Status Date / Time No Known Allergies Allergy Verified 10/14/16 17:44 - Home Medications Home Medications: Ambulatory Orders Unobtainable [Unobtainable] 11/14/16 Review of Systems Findings/Remarks: Unable to obtain: somnolent Did state while somonolent he gets occasional chest pain and shortness of breath Physical Examination Vital Signs: Vital Signs Temperature 98.3 F 11/14/16 00:43 Pulse Rate 96 H 11/14/16 00:43 Respiratory Rate 18 11/14/16 00:43 Blood Pressure 132/77 11/14/16 00:43 O2 Sat by Pulse Oximetry (%) 100 10 00:43 Constitutional: Yes: No Distress, Other (lethargic) Eyes: Yes: Conjunctiva Clear HENT: Yes: Atraumatic, Normocephalic, Other (dry mucous membranes) Neck: Yes: Supple Cardiovascular: Yes: Regular Rate and Rhythm, Murmur (3/6 systolic murmur), S1, S2 Respiratory: Yes: Regular, CTA Bilaterally Gastrointestinal: Yes: Soft, Distention, Other (+ shifting dullness no fluid wave). No: Tenderness Extremities: Yes: Other (LLE with large ulcer posterior calf with surrounding erythema and skin excoritation along the whole length of the lef from just below the ankle up to just below the knee. 2+ Dp pulses. Evidence of early venous stasis) Edema: Yes Edema: LLE: 1+, RLE: 1+ (pitting ) Peripheral Pulses: Left Doralis Pedis: 2+, Right Dorsalis Pedis: 2+ Neurological: Yes: Lethargy Imaging - Results Chest X-ray: Image Reviewed Assessment/Plan 46M with hx. of polysubstance abuse, cirrhosis, etoh, varices, Hep. C, Chronic RLE wound who presented with AMS, found to have metabolic encephalopathy and chronic RLE wound. Problem list : RLE non healing ulcer with cellulitis hepatic encephalopathy polysubstance abuse-Utox positive for opioids benzos and cocaine Lactic acidosos hypokalemia varcies mirocyic anemia-likely anemia of chronic disease possible portal hypertension recurrent ascites hypoalbuminemia elevated ammonia cirrhosis Plan: admit to inpatient med/surg Continue home meds Continue rifaxamin hold nadolol due to cocaine abuse [facility] protocol detox consult vascular consult-known to Dr. Garcia ID consult-known to Dr. 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 Visit type - Emergency Visit Emergency Visit: Yes ED Registration Date: 11/14/16 Care time: The patient presented to the Emergency Department on the above date and was hospitalized for further evaluation of their emergent condition. - New Patient This patient is new to me today: Yes Date on this admission: 11/14/16 - Critical Care Critical Care patient: No
--- NOTE | 2016-11-14 05:42 | HP ---
CHIEF COMPLAINT: AMS & RLE cellulitis PCP: CARLOS ENRIQUE Arteaga Vascular: Dr. Coty Garcia HISTORY OF PRESENT ILLNESS: Pt is a 46M with PMH EtOH abuse, hepatic encephalopathy, ascites, polysubstance abuse, IVDA, recent admissions to this hospital and to [facility] who was brought in by ambulance after being found by girlfriend unconscious and shivering in a neighbor's hallway. Pt is somnolent and unable to provide any meaningful history, so history was taken from records and from girlfriend. Pt has a cellulitic RLE with ulceration which has been relatively stable for the last year. ER course was notable for: (1) utox Pos for cocaine, EtOH (102.2), benzos, opiates, neg for methadone (2) labs significant for low K 3.1,LA 2.9, T. Bili 1.5, Ammonia 114, Hb 8.9, INR 1.7 (3) Recent Travel: denies PAST MEDICAL HISTORY: EtOH abuse, hepatic encephalopathy, ascites, polysubstance abuse, IVDA, Hep C, facial trauma, SBO PAST SURGICAL HISTORY: small bowel resection, facial ORIF Social History: Smokin cig/day Alcohol: positive Drugs: positive Family History: n/a Allergies No Known Allergies Allergy (Verified 10/14/16 17:44) HOME MEDICATIONS: Home Medications Medication Instructions Recorded Unobtainable [Unobtainable] 11/14/16 REVIEW OF SYSTEMS : taken from girlfriend, as pt was too intoxicated to give history CONSTITUTIONAL: subjective fevers, chills, Absent: diaphoresis, generalized weakness, malaise, loss of appetite, weight change HEENT: Absent: rhinorrhea, nasal congestion, throat pain, throat swelling, difficulty swallowing, mouth swelling, ear pain, eye pain, visual changes CARDIOVASCULAR: Absent: chest pain, syncope, palpitations, irregular heart rate, lightheadedness , peripheral edema RESPIRATORY: Absent: cough, shortness of breath, dyspnea with exertion, orthopnea, wheezing, stridor, hemoptysis GASTROINTESTINAL: Absent: abdominal pain, abdominal distension, nausea, vomiting, diarrhea, constipation, melena, hematochezia GENITOURINARY: Absent: dysuria, frequency, urgency, hesitancy, hematuria, flank pain, genital pain MUSCULOSKELETAL: Absent: myalgia, arthralgia, joint swelling, back pain, neck pain SKIN: Absent: rash, itching, pallor HEMATOLOGIC/IMMUNOLOGIC: Absent: easy bleeding, easy bruising, lymphadenopathy, frequent infections ENDOCRINE: Absent: unexplained weight gain, unexplained weight loss, heat intolerance, cold intolerance NEUROLOGIC: Absent: headache, focal weakness or paresthesias, dizziness, unsteady gait, seizure, mental status changes, bladder or bowel incontinence PSYCHIATRIC: Absent: anxiety, depression, suicidal or homicidal ideation, hallucinations. PHYSICAL EXAMINATION Very poor historian. Intoxicated GENERAL: somnolent in no acute distress. HEAD: Normal with no signs of trauma. EYES: Pupils equal, round and reactive to light, sclera anicteric, conjunctiva clear EARS, NOSE, THROAT: Moist mucous membranes. Able to extend tongue midline NECK: Normal range of motion, supple without lymphadenopathy, JVD, or masses. No carotid bruits LUNGS: Breath sounds equal, clear to auscultation bilaterally. No wheezes, and no crackles. No accessory muscle use. HEART: Regular rate and rhythm, normal S1 and S2 with 4/6 crescendo-decrescendo murmur heard throughout and best heard at RUSB, no rub or gallop. ABDOMEN: Soft, nontender, distended with mild shifting dullness, normoactive bowel sounds, no guarding, no rebound, no masses. No hepatomegaly or splenomegaly. midline surgical scar MUSCULOSKELETAL: Normal range of motion at all joints. No bony deformities or tenderness. No CVA tenderness. UPPER EXTREMITIES: 2+ pulses, warm, well-perfused. No cyanosis. No clubbing. No peripheral edema. LOWER EXTREMITIES: RLE cellulitis with nonhealing posterior ulcer. 2+ pulses b/l , warm. No calf tenderness. 2+ peripheral edema. NEUROLOGICAL: unable to assess SKIN: Warm, dry, normal turgor, cellulitic region, normal capillary refill. ASSESSMENT/PLAN: 46 M with PMH EtOH abuse, hepatic encephalopathy, ascites, polysubstance abuse, IVDA, recent admissions to this hospital and to [facility] who was brought in by ambulance after being found by girlfriend unconscious and shivering in a neighbor's hallway. Pt is being admitted for cellulitis and AMS 2/2 intoxication & hepatic encephalopathy. #Intoxication -Utox pos for EtOH 102, cocaine, benzos, opiates -LA 2.9->1.7 -[facility] protocol -banana bag, thiamine, folate -CIWA -Detox (Dr. Courtney) consulted #Cellulitis -WBC 8.9 -Ancef in ED -ID (Dr. Beebe) consulted #Hepatic encephalopathy/Cirrhosis -[id number] -INR 1.7 -hypoalbuminemia -varices -may have portal HTN (pt is on Nadalol) -c/w Lactulose -c/w Rifaximin -stop EtOH #Hypokalemia -K of 3.1 -f/u Mg -KCl supplement PO #Lactic Acidosis: RESOLVED -LA 2.9 on admission. Now 1.7 #Hep C -f/u out pt #Abdominal distension -recently tapped -consider imaging/abdominal tap if worsens #Chronic Anemia -repeat Fe studies (last done in Mar) -B12/Folate #Methadone -Pt has been on methadone in the past. According to girlfriend, pt said he restarted today. However, Utox was negative for methadone. #FEN -NS -hypokalemia on PO KCl -advance once pt is awake and lucid #Dispo -admit to Med-Surg for AMS, metabolic encephalopathy, cellulitis Edmundo Ortez MD, PGY-1 Case discussed with senior Visit type - Emergency Visit Emergency Visit: Yes ED Registration Date: 11/14/16 Care time: The patient presented to the Emergency Department on the above date and was hospitalized for further evaluation of their emergent condition. - New Patient This patient is new to me today: Yes Date on this admission: 11/14/16 - Critical Care Critical Care patient: No
[2016-11-14] MEDS ORDERED: HEPARIN NA (PORCINE) 5,000 UNITS/ML 1ML VIAL SQ SCH (06:00)
[2016-11-14] MEDS ORDERED: HEPARIN NA (PORCINE) 5,000 UNITS/ML 1ML VIAL ONE (06:18)
[2016-11-14 09:08] LABS: MCH 22.2 pg (25.7-33.7); MCHC 31.8 g/dl (32.0-35.9); MEAN PLT VOLUME 8.2 fl (7.5-11.1); PLATELET COUNT 91 K/MM3 (134-434)
[2016-11-14 09:18] LABS: INR 1.75 (0.82-1.09); PROTHROMBIN TIME (PATIENT) 19.5 SEC (9.98-11.88)
[2016-11-14 09:21] LABS: ACTIVATED PTT 35.6 SECONDS (26.9-34.4)
[2016-11-14 09:31] LABS: ANION GAP 9 (8-16); CALCIUM 7.6 mg/dL (8.5-10.1); CO2 26 mmol/L (21-32); CREATININE 0.4 mg/dL (0.7-1.3); GLUCOSE,RANDOM 91 mg/dL (74-106); MAGNESIUM 1.9 mg/dL (1.8-2.4); PHOSPHOROUS 3.1 mg/dL (2.5-4.9)
[2016-11-14] MEDS ORDERED: RIFAXIMIN 550 MG TABLET (UD) PO SCH ×2 (10:00→22:00)
[2016-11-14] MEDS ORDERED: NADOLOL 20 MG TABLET (FP) PO SCH (10:00)
[2016-11-14] MEDS: FOLIC ACID 1 MG TABLET (FP) PO SCH (10:27)
[2016-11-14] MEDS: THIAMINE HCL 100 MG TABLET (FP) PO SCH (10:27)
[2016-11-14] MEDS: PANTOPRAZOLE 40 MG TABLET (FP) PO SCH (10:27)
[2016-11-14] MEDS: ASCORBIC ACID 500 MG TABLET (FP) PO SCH (10:27)
--- NOTE | 2016-11-14 10:56 | EKG ---
Test Reason : Blood Pressure : / mmHG Vent. Rate : 094 BPM Atrial Rate : 094 BPM P-R Int : 114 ms QRS Dur : 084 ms QT Int : 400 ms P-R-T Axes : 048 007 018 degrees QTc Int : 500 ms NORMAL SINUS RHYTHM PROLONGED QT ABNORMAL ECG WHEN COMPARED WITH ECG OF 11-OCT-2016 08:52, NO SIGNIFICANT CHANGE WAS FOUND Confirmed by PAPI JOSHI MD ([id number]) on 11/14/2016 10:55:46 AM Referred By: Confirmed By:PAPI JOSHI MD
[2016-11-14] MEDS ORDERED: chlordiazePOXIDE HCL 25 MG CAPSULE PO SCH (11:00)
[2016-11-14 11:35] LABS: FERRITIN 15 ng/ml (16.4-293.9)
--- NOTE | 2016-11-14 11:35 | CONSULT ---
Consult Detox [facility] Reason for Current Admission/Consult: Polysubstance use - IDU heroin and alcohol Referred by:: Shanita Ying - History History of Present Illness: 46 yo m with h/o chronic alcoholism, IDU heroin, Hep C+, cirrhosis, esophageal varices, ascites, s/p colectomy for SBO, chronc LES ulcers - not compliant with follow up now admitted with AMS, etiology unknown. Unable to obtain history from patient re:substance use, is being transported for further studies at this time. Appears to have been a patient at [facility] intensive outpatient program at one time. 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 No signs of withdrawal at this time, no tremors, no sweats, no pupillary dilation, normal bp and pulse, no sweats or anxiety noted. Labs reviewed and significant for severe anemai, hypokalemia, no [id number], elevated ammonia and lactic acid. COWS - Scale Resting Pulse: 1= [place] 81-100 Sweatin= No chills or Flushing Restless Observation: 0= Sits Still Pupil Size: 0= Normal to Room Light Bone or Joint Aches: 0= None Runny Nose/ Eye Tearin= None GI Upset > 30mins: 0= None Tremor Observation: 0= None Yawning Observation: 0= None Anxiety or Irritability: 0= None Goose Flesh Skin: 0=Smooth Skin COWS Score: 1 CIWA Score - CIWA Score Nausea/Vomitin-No Nausea/No Vomiting Muscle Tremors: None Anxiety: 0-No Anxiety, at Ease Agitation: 0-Normal Activity Paroxysmal Sweats: No Perspiration Orientation: 3-Disoriented Date>2 days Tacttile Disturbances: 0-None Auditory Disturbances: 0-None Visual Disturbances: 0-None Headache: 0-None Present CIWA-Ar Total Score: 3 Assessment Plan - Diagnosis (1) Polysubstance abuse Status: Chronic (2) Altered mental status Status: Acute Qualifiers: Altered mental status type: somnolence Qualified Code(s): R40.0 - Somnolence; R40.0 - Somnolence (3) Chronic alcoholism Status: Chronic (4) Opioid dependence Status: Acute - Medication Detox Regimen/Protocol: Not Applicable (no signs of withdrawal at this time, continue to observe and monitor, patient appears to be intoxicated at the very least from alcohol with some hepatic encephalopthy. If he develops signs and symptoms of withdrawal consider symptom triggered treatment with short acting ativan. Will follow. May need methadone detox if he develops opioid withdrawal. call [phone] )
--- NOTE | 2016-11-14 13:34 | CON.ID ---
Consult Consult Specialty:: infectious diseases Referred by:: Reason for Consultation:: cellulitis of the rt leg - History of Present Illness History of Present Illness: RY OF PRESENT ILLNESS: Pt is a 46M with PMH EtOH abuse, hepatic encephalopathy, ascites, polysubstance abuse, IVDA, recent admissions to this hospital and to [facility] who was brought in by ambulance after being found by girlfriend unconscious and shivering in a neighbor's hallway. Pt is somnolent and unable to provide any meaningful history, so history was taken from records Pt has a cellulitic RLE with ulceration which has been relatively stable for the last year. 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 Gastrointestinal: Yes: Ascites, Esophageal Varices, Other (Hepatitis, umbilical hernia) Hepatobiliary: Yes: Cirrhosis, Hepatitis C Psych: Yes: Addictions (alchohol Current, Heroin revcovery) Rheumatology: No: Fibromyalgia Dermatology: Yes: Other (rt lower extremity cellulitis) - Past Surgical History Past Surgical History: Yes: Colectomy - Alcohol/Substance Use Hx Alcohol Use: Yes Number of Drinks Daily: 3 History of Substance Use: reports: Heroin - Smoking History Smoking history: Current some day smoker Have you smoked in the past 12 months: No Aproximately how many cigarettes per day: 3 If you are a former smoker, when did you quit?: 06/11/2013 - Social History Usual Living Arrangement: Alone Home Medications - Allergies Allergies/Adverse Reactions: Allergies Allergy/AdvReac Type Severity Reaction Status Date / Time No Known Allergies Allergy Verified 10/14/16 17:44 - Home Medications Home Medications: Ambulatory Orders Unobtainable [Unobtainable] 11/14/16 Review of Systems Unable to obtain ROS, reason: unable to obtain Physical Exam Vital Signs: Vital Signs Temperature 98.8 F 11/14/16 11:00 Pulse Rate 84 11/14/16 11:00 Respiratory Rate 16 11/14/16 11:00 Blood Pressure 129/83 11/14/16 11:00 O2 Sat by Pulse Oximetry (%) 100 11/14/16 09:00 Constitutional: Yes: Other Eyes: Yes: Conjunctiva Clear Neck: Yes: Supple Cardiovascular: Yes: Regular Rate and Rhythm Respiratory: Yes: Regular, CTA Bilaterally Gastrointestinal: Yes: Normal Bowel Sounds, Soft Musculoskeletal: Yes: Other Extremities: Yes: Erythema, Other Integumentary: Yes: Erythema, Other Wound/Incision: Yes: Reddened, Excoriated Neurological: Yes: Lethargy, Other Psychiatric: Yes: Other Labs: CBC, BMP 11/14/16 08:35 11/14/16 08:35 Imaging - Results Chest X-ray: Report Reviewed, Image Reviewed Assessment/Plan Intoxication #Cellulitis #Hepatic encephalopathy/Cirrhosis #Hypokalemia #Lactic Acidosis patient has non healing venous ulcer with probably polymicrobial infection the wound has some spots of erythema but other romero looks dry and foul smelling plan will start him on abx rest continue as per detox await for cx reports rest as per primary
--- NOTE | 2016-11-14 14:12 | PN ---
Teaching Attending Note Name of Resident: Shanita Ying ATTENDING PHYSICIAN STATEMENT I saw and evaluated the patient. I reviewed the resident's note and discussed the case with the resident. I agree with the resident's findings and plan as documented. SUBJECTIVE:c/o LLE pain. states he last drank beers yesterday. states hes on methadone from [facility] [address]. denies cocaine use or IVDA. claims medication compliance. denies CP, SOB, fever, chills, CHOWDHURY, N/V/C/D denies visual/ auditory or tactile stimuli. does not report hx of withdrawal seizures or DT's. OBJECTIVE: Last Vital Signs Temp Pulse Resp BP Pulse Ox 98.8 F 84 16 129/83 100 11/14/16 11:00 11/14/16 11:00 11/14/16 11:00 11/14/16 11:00 11/14/16 09:00 General lethargic. anicteric. easily arrousable to verbal stimuli A&O x2 (self and location) CV S1 S2 RRR no murmur/rub/gallop Lungs CTA B/L no wheezing/rales/rhonchi Abdomen soft +distended. midline scar Extremities +tremor no asterixis. RLE +warmth, +tender multiple ulcers with + active drainage noted on bed +foul odor +edema ASSESSMENT AND PLAN: 46yo M with PMH continuous ETOH dependence, Cirrhosis, HCV, SBO s/p resection, possible methadone abuse presented to the ER with AMS 1. Acute toxic encephalopathy- likely due to Hyperammonemia vs severe sepsis due to RLE cellulitis vs SBP?- mental status slightly improved. started on lactulose no reports of BM per RN. pt also has enlarged abdomen concern for ascites with ?SBP. unable to obtain if had paracentesis in the past unsure if this is new but does not appear to be painful. obtain abdominal u/s. doppler to r/o DVT. started on lactulose and rifaxmin. on cefazolin which will cover for both sources. will hold librium at this time to prevent worsening confusion as does not appear to be withdrawing at this time. ID and vascular surgery consulted 2. Microcytic anemia- no reports of bleeding. likely some dilutional component. repeat CBC this afternoon, check iron studies. no indication for transfusion. txn for Hgb <7 3. Hypokalemia- Kcl po 4. Pseudohypocalcemia- Corrected Ca 9.2 5. Continuous polysubstance abuse- Utox +opiates, BZD, cocaine. CIWA 3. will hold librium at this time as he is already lethargic and does not appear to be actively withdrawing. reports hes on methadone but Utox is negative. will call to confirm. banana bag, thiamine, folate, MVI. detox specialist. monitor for worsening signs of withdrawal 6. Cirrhosis- due to HCV vs ETOH. unclear if he was treated for HCV in the past. transaminits at baseline 7. DVT ppx- hold pharmacologic prophylaxis
[2016-11-14] MEDS ORDERED: PT OWN MED DRAWER 7, Y5N ONE (14:17)
[2016-11-14] MEDS: LACTULOSE 20 GM/30 ML UDC (FOR ORAL USE ONLY) PO SCH ×2 (14:28→21:32)
[2016-11-14] MEDS: AMPICILLIN NA/SULBACTAM NA 3 GM in SODIUM CHLORIDE 100 ML IVPB SCH ×2 (14:30→18:22)
[2016-11-14] MEDS ORDERED: LORazepam 0.5 MG TABLET PO PRN (17:03)
--- NOTE | 2016-11-14 17:03 | PN ---
Physical Exam: SUBJECTIVE: Patient seen and examined. uncooperative. unable to obtain proper history. OBJECTIVE: Vital Signs Period Temp Pulse Resp BP Sys/Choi Pulse Ox Last 24 Hr 98 F-98.8 F 82-90 14-20 120-165/75-95 95-100 GENERAL: lethargic, uncooperative, nad. A/o X2 HEAD: Normal with no signs of trauma. EYES: 1mm pupils, minimally reactive ENT: oropharynx clear without exudates, moist mucous membranes. NECK: supple. LUNGS: Breath sounds equal, clear to auscultation bilaterally, no wheezes, no crackles, no accessory muscle use. HEART: Regular rate and rhythm, S1, S2 with 4/6 crescendo-decrescendo murmur ABDOMEN: Distended, Ascities, normoactive bowel sounds, nontender EXTREMITIES: warm, tender, RLE cellulitis. foul smelling, non healing posterior ulcer without drainage. SKIN: Warm, dry, normal turgor, no rashes or lesions noted Laboratory Results - last 24 hr 11/14/16 11/14/16 11/14/16 04:25 08:35 08:35 WBC 5.0 RBC 3.51 L Hgb 7.8 L D Hct 24.6 L MCV 70.0 L MCH 22.2 L MCHC 31.8 L RDW 20.0 H Plt Count 91 L D MPV 8.2 PT with INR 19.50 H INR 1.75 H PTT (Actin FS) 35.6 H Sodium Potassium Chloride Carbon Dioxide Anion Gap BUN Creatinine Random Glucose Lactic Acid 1.7 Calcium Phosphorus Magnesium Ferritin Vitamin B12 Serum Folate 11/14/16 11/14/16 11/14/16 08:35 08:35 08:35 WBC RBC Hgb Hct MCV MCH MCHC RDW Plt Count MPV PT with INR INR PTT (Actin FS) Sodium 144 Potassium 3.5 Chloride 109 H Carbon Dioxide 26 Anion Gap 9 BUN 5 L Creatinine 0.4 L Random Glucose 91 Lactic Acid Calcium 7.6 L Phosphorus 3.1 D Magnesium 1.9 Ferritin 15 L Cancelled Vitamin B12 1016 H D Cancelled Serum Folate 18 H Active Medications Generic Name Dose Route Start Last Admin Trade Name Freq PRN Reason Stop Dose Admin Ascorbic Acid 500 mg 11/14/16 10:00 11/14/16 10:27 Vitamin C - PO 500 mg DAILY KENDRICK Administration Folic Acid 1 mg 11/14/16 10:00 11/14/16 10:27 Folic Acid - PO 1 mg DAILY KENDRICK Administration Ampicillin Sodium/Sulbactam 100 mls @ 200 mls/hr 11/14/16 14:00 11/14/16 14:30 Sodium 3 gm/ Sodium Chloride IVPB 200 mls/hr Q8H-IV KENDRICK Administration Lactulose 30 gm 11/14/16 14:00 11/14/16 14:28 Cephulac (Oral Use) PO 30 gm TID KENDRICK Administration Pantoprazole Sodium 40 mg 11/14/16 10:00 11/14/16 10:27 Protonix - PO 40 mg DAILY KENDRICK Administration Rifaximin 550 mg 11/14/16 10:00 11/14/16 10:27 Xifaxan - PO 550 mg BID KENDRICK Administration Thiamine HCl 100 mg 11/14/16 10:00 11/14/16 10:27 Vitamin B1 - PO 100 mg DAILY KENDRICK Administration ASSESSMENT/PLAN: #Acute toxic encephalopathy - Hyperammonemia vs Severe Sepsis due to RLE cellulitis vs SBP -slightly improved mental status compared to last night -distended abdomen, ascities -continue Lactulose 30mg TID - continue rifaximin 550 PO BID -Started Unasyn today as per ID -Duplex negative -ID and vascular consulted -FU ammonia -FU hepatic panel #RLE cellulitis -wbc 5 -multiple previous admissions for same problem -chronic, non-compliant - ID on board -Started on Unasyn #Polysubstance abuse -held librium- will monitor withdrawal symptoms -utox + for opiates, BZD, cocaine, CIWA 3 -banana bag -thiamine -folate -FU detox specialist- recommends PRN short acting ativan for withdrawal. -will monitor for worsening signs of withdrawal #Microcytic anemia -FU repeat CBC -FU iron studies -treat if hemoglobin <7 #Hypokalemia -Given KCL PO #FEN -Not on any fluids -WNL -Sodium controlled diet #DVT PPX -held Visit type - Emergency Visit Emergency Visit: Yes ED Registration Date: 11/14/16 Care time: The patient presented to the Emergency Department on the above date and was hospitalized for further evaluation of their emergent condition. - New Patient This patient is new to me today: Yes Date on this admission: 11/14/16 - Critical Care Critical Care patient: No
[2016-11-14] MEDS: oxyCODONE HCL 5 MG TABLET PO PRN (17:23)
[2016-11-14] MEDS: SPIRONOLACTONE 25 MG TABLET (FP) PO SCH (18:27)
[2016-11-14] MEDS: FUROSEMIDE 20 MG TABLET (FP) PO SCH (18:28)
[2016-11-14 18:50] LABS: ALBUMIN 1.8 g/dl (3.4-5.0); BILIRUBIN,DIRECT 0.9 mg/dL (0.0-0.2); BILIRUBIN,TOTAL 1.5 mg/dL (0.2-1.0); TOT PROT 6.4 g/dl (6.4-8.2)
[2016-11-14 19:07] LABS: MCH 22.8 pg (25.7-33.7); MEAN CELL VOLUME 71.1 fl (80-96); MEAN PLT VOLUME 8.6 fl (7.5-11.1); PLATELET COUNT 96 K/MM3 (134-434); RDW 20.3 % (11.9-15.9); WHITE BLOOD COUNT 5.5 K/mm3 (4.0-10.0)
[2016-11-14] MEDS: COLLAGENASE CLOSTRIDIUM HIST. 30 GRAMS TUBE TP SCH (19:50)
[2016-11-15] MEDS: AMPICILLIN NA/SULBACTAM NA 3 GM in SODIUM CHLORIDE 100 ML IVPB SCH ×3 (02:38→17:55)
[2016-11-15] MEDS: oxyCODONE HCL 5 MG TABLET PO PRN ×2 (03:34→20:59)
[2016-11-15] MEDS: LACTULOSE 20 GM/30 ML UDC (FOR ORAL USE ONLY) PO SCH ×3 (05:39→21:00)
[2016-11-15 07:51] LABS: MCH 22.3 pg (25.7-33.7); MCHC 31.6 g/dl (32.0-35.9); MEAN CELL VOLUME 70.5 fl (80-96); MEAN PLT VOLUME 8.2 fl (7.5-11.1); PLATELET COUNT 89 K/MM3 (134-434); RDW 20.5 % (11.9-15.9); WHITE BLOOD COUNT 6.6 K/mm3 (4.0-10.0)
[2016-11-15] MEDS ORDERED: oxyCODONE HCL 5 MG TABLET PO PRN (07:55)
[2016-11-15 08:09] LABS: SERUM IRON 15 ug/dL (38-169); TOTAL IRON BINDING CAPACITY 214 ug/dL (250-450); UIBC 199 ug/dL (111-343)
[2016-11-15 08:23] LABS: ALBUMIN 1.7 g/dl (3.4-5.0); ALK PHOS 132 U/L (45-117); ANION GAP 7 (8-16); BILIRUBIN,TOTAL 1.6 mg/dL (0.2-1.0); CALCIUM 7.7 mg/dL (8.5-10.1); CO2 25 mmol/L (21-32); CREATININE 0.4 mg/dL (0.7-1.3); GLUCOSE,RANDOM 79 mg/dL (74-106); SGOT/AST 45 U/L (15-37); SGPT/ALT 28 U/L (12-78); TOT PROT 6.1 g/dl (6.4-8.2)
--- NOTE | 2016-11-15 08:31 | PN ---
Physical Exam: SUBJECTIVE: Patient seen and examined. No acute events overnight. Patient complains of pain in his RLE. Says the pain is a 8/10. Did not have a BM since admission. He denies nausea, vomiting, fever, dizziness. OBJECTIVE: Vital Signs Period Temp Pulse Resp BP Sys/Choi Pulse Ox Last 24 Hr 98 F-99.7 F 82-100 14-20 122-165/74-95 96-100 GENERAL: lethargic, uncooperative, A/O x 3 HEAD: Normal with no signs of trauma. EYES: 1mm pupils, minimally reactive ENT: oropharynx clear without exudates, moist mucous membranes. NECK: supple. LUNGS: Breath sounds equal, clear to auscultation bilaterally, no wheezes, no crackles, no accessory muscle use. HEART: Regular rate and rhythm, S1, S2 with 4/6 crescendo-decrescendo murmur ABDOMEN: Distended, Ascites, normoactive bowel sounds, nontender EXTREMITIES: RLE tenderness with warmth, edematous, erythematous, ulcerated, drainage, and foul odor. SKIN: Warm, dry, normal turgor, no rashes or lesions noted Laboratory Results - last 24 hr 11/14/16 11/14/16 11/14/16 08:35 08:35 08:35 WBC 5.0 RBC 3.51 L Hgb 7.8 L D Hct 24.6 L MCV 70.0 L MCH 22.2 L MCHC 31.8 L RDW 20.0 H Plt Count 91 L D MPV 8.2 PT with INR 19.50 H INR 1.75 H PTT (Actin FS) 35.6 H Sodium 144 Potassium 3.5 Chloride 109 H Carbon Dioxide 26 Anion Gap 9 BUN 5 L Creatinine 0.4 L Random Glucose 91 Calcium 7.6 L Phosphorus 3.1 D Magnesium 1.9 Iron TIBC Iron Saturation Transferrin Ferritin 15 L Total Bilirubin Direct Bilirubin AST ALT Alkaline Phosphatase Ammonia Total Protein Albumin Vitamin B12 1016 H D Serum Folate 18 H 11/14/16 11/14/16 11/14/16 08:35 08:35 08:35 WBC RBC Hgb Hct MCV MCH MCHC RDW Plt Count MPV PT with INR INR PTT (Actin FS) Sodium Potassium Chloride Carbon Dioxide Anion Gap BUN Creatinine Random Glucose Calcium Phosphorus Magnesium Iron 15 L TIBC 214 L Iron Saturation 7 L Transferrin Ferritin Cancelled Total Bilirubin Direct Bilirubin AST ALT Alkaline Phosphatase Ammonia Total Protein Albumin Vitamin B12 Cancelled Serum Folate 11/14/16 11/14/16 11/14/16 08:35 17:15 17:15 WBC 5.5 RBC 3.79 L Hgb 8.6 L D Hct 26.9 L MCV 71.1 L MCH 22.8 L MCHC 32.0 RDW 20.3 H Plt Count 96 L MPV 8.6 PT with INR INR PTT (Actin FS) Sodium Potassium Chloride Carbon Dioxide Anion Gap BUN Creatinine Random Glucose Calcium Phosphorus Magnesium Iron TIBC Iron Saturation Transferrin 188 L Ferritin Total Bilirubin 1.5 H Direct Bilirubin 0.9 H D AST 58 H ALT 32 Alkaline Phosphatase 170 H Ammonia Total Protein 6.4 Albumin 1.8 L Vitamin B12 Serum Folate 11/14/16 17:15 WBC RBC Hgb Hct MCV MCH MCHC RDW Plt Count MPV PT with INR INR PTT (Actin FS) Sodium Potassium Chloride Carbon Dioxide Anion Gap BUN Creatinine Random Glucose Calcium Phosphorus Magnesium Iron TIBC Iron Saturation Transferrin Ferritin Total Bilirubin Direct Bilirubin AST ALT Alkaline Phosphatase Ammonia 103.72 H Total Protein Albumin Vitamin B12 Serum Folate Active Medications Generic Name Dose Route Start Last Admin Trade Name Freq PRN Reason Stop Dose Admin Ascorbic Acid 500 mg 11/14/16 10:00 11/14/16 10:27 Vitamin C - PO 500 mg DAILY KENDRICK Administration Collagenase 1 applic 11/14/16 19:45 11/14/16 19:50 Santyl - TP 1 applic DAILY KENDRICK Administration Folic Acid 1 mg 11/14/16 10:00 11/14/16 10:27 Folic Acid - PO 1 mg DAILY KENDRICK Administration Furosemide 20 mg 11/14/16 17:45 11/14/16 18:28 Lasix - PO 20 mg DAILY KENDRICK Administration Ampicillin Sodium/Sulbactam 100 mls @ 200 mls/hr 11/14/16 14:00 11/15/16 02:38 Sodium 3 gm/ Sodium Chloride IVPB 200 mls/hr Q8H-IV KENDRICK Administration Lactulose 30 gm 11/14/16 14:00 11/15/16 05:39 Cephulac (Oral Use) PO Not Given TID KENDRICK Lorazepam 0.5 mg 11/14/16 17:03 Ativan - PO DAILY PRN ANXIETY Oxycodone HCl 5 mg 11/15/16 07:55 Roxicodone - PO Q6H PRN PAIN Pantoprazole Sodium 40 mg 11/14/16 10:00 11/14/16 10:27 Protonix - PO 40 mg DAILY KENDRICK Administration Rifaximin 550 mg 11/15/16 10:00 Xifaxan - PO BID KENDRICK Spironolactone 50 mg 11/14/16 17:45 11/14/16 18:27 Aldactone - PO 50 mg DAILY KENDRICK Administration Thiamine HCl 100 mg 11/14/16 10:00 11/14/16 10:27 Vitamin B1 - PO 100 mg DAILY KENDRICK Administration ASSESSMENT/PLAN: #Acute toxic encephalopathy - Hyperammonemia vs Severe Sepsis due to RLE cellulitis vs SBP -improved mental status, likely at baseline -distended abdomen, ascities -continue Lactulose 30mg TID - continue rifaximin 550 PO BID -LFT's trending down -Continue Unasyn (day 2) -Duplex negative -ID and vascular consulted -Says he has a knuckler at [facility] but has not seen him in a long time -Chemical debridement with collagenase recommended by surgical PA #RLE cellulitis -wbc 5.6 -multiple previous admissions for same problem -chronic, non-compliant - ID on board -continue Unasyn (day 2) #Polysubstance abuse -held librium- will monitor withdrawal symptoms -Ativan 2mg PO daily -Methadone 10mg q12 -utox + for opiates, BZD, cocaine, CIWA 0 -thiamine -folate -FU detox specialist- recommends PRN short acting ativan for withdrawal and methadone -will go to [facility] for rehab once medically optimized -will monitor for worsening signs of withdrawal -should follow up with [facility]ler outpatient -continue spirolactone, lasix, and rifaxamin #Cirrhosis -likely from ETOH vs. HCV -ascites, but patient says his abdomen has always been like that -low concern for SBP -refused Liver u/s #Thrombocytopenia -likely from cirrhosis -baseline 80-90 -will monitor #Microcytic anemia -no signs of bleeding -iron deficiency -monitor H&H -treat if hemoglobin <7 #Hypokalemia -resolved #FEN -Not on any fluids -WNL -Sodium controlled diet #DVT PPX -held Visit type - Emergency Visit Emergency Visit: Yes ED Registration Date: 11/14/16 Care time: The patient presented to the Emergency Department on the above date and was hospitalized for further evaluation of their emergent condition. - New Patient This patient is new to me today: No - Critical Care Critical Care patient: No
--- NOTE | 2016-11-15 08:40 | PN ---
[facility] CIWA - CIWA Score Nausea/Vomitin-No Nausea/No Vomiting Muscle Tremors: None Anxiety: 1-Mildly Anxious Agitation: 1-Slight > Activity Paroxysmal Sweats: No Perspiration Orientation: 0-Oriented Tacttile Disturbances: 0-None Auditory Disturbances: 0-None Visual Disturbances: 0-None Headache: 0-None Present CIWA-Ar Total Score: 2 S COWS - Scale Resting Pulse: 1= [place] 81-100 Sweatin= No chills or Flushing Restless Observation: 1= Difficult to Sit Still Pupil Size: 0= Normal to Room Light Bone or Joint Aches: 1= Mild Discomfort Runny Nose/ Eye Tearin= Nasal Congestion GI Upset > 30mins: 0= None Tremor Observation of Outstretched Hands: 0= None Yawning Observation: 0= None Anxiety or Irritability: 1=Feels Anxious/Irritable Goose Flesh Skin: 0=Smooth Skin COWS Score: 5 S Progress Note (SOAP) Subjective: c/o back pain , pain left leg ulcer, started on oxycodone 5mg po prn patient reports being on [facility]MTP ([facility]?) but utox neg for methadone, denies IDU heroin, cocaine or benzodiazepines, reports drinking 1 6 pack daily. also reports insomnia. Objective: 11/15/16 08:33 Vital Signs - 24 hr 11/14/16 11/14/16 11/14/16 09:00 11:00 14:00 Temperature 98 F 98.8 F 98.8 F Pulse Rate 82 84 90 Respiratory 14 16 20 Rate Blood Pressure 165/95 129/83 O2 Sat by Pulse 100 Oximetry (%) 11/14/16 11/14/16 11/14/16 20:00 21:00 23:37 Temperature 99.7 F H 98.0 F Pulse Rate 90 82 Respiratory 20 18 Rate Blood Pressure 122/74 134/78 O2 Sat by Pulse 96 Oximetry (%) 11/15/16 06:20 Temperature 98.9 F Pulse Rate 100 H Respiratory 20 Rate Blood Pressure 130/83 O2 Sat by Pulse Oximetry (%) patient still lethargic but more responsive then yesterday, slight cough, moving in bed, appears uncomfortable on movement, awaiting US now NPO Assessment: 11/15/16 08:40 mild withdrawal from opioids/alcohol noted, chronic back and leg pain poorly controlled with po oxycodone, continued lethargy and AMS Plan: 1. cont work up and treatment as per primary team 2. Pain - oxycodone scheduled around the clock for pain 5mg q4h with 5mg po for breakthrough pain prn may provide better control, hold for sedation - this should treat any opiod withdrawal sx as well. 3. Opioid dependence - called [facility] , they report he was administratively discharged for non compliance and his last date of medication was 10/18/16, last dose dispensed was 5mg methadone. He is not able to return to the program. When patient is ready for d/c can transfer to [facility] for opioid detox from pain medication if he is in agreement. Can give ativan po 2 mg qHS for sleep and prn for any withdrawal sx noted, hold for sedation. 4. Chronic alcoholism - deneies h/o seizures or DTS, would not start librium detox protocol at this time because of sedation. Patient may benefit form suboxone in divided doses for pain and addiction, can follow up at [facility] for buprenorphine induction maintenance treatment as alternative to inpatient detoxification.
[2016-11-15] MEDS ORDERED: chlordiazePOXIDE HCL 25 MG CAPSULE PO SCH (11:00)
[2016-11-15] MEDS: THIAMINE HCL 100 MG TABLET (FP) PO SCH (11:31)
[2016-11-15] MEDS: FOLIC ACID 1 MG TABLET (FP) PO SCH (11:31)
[2016-11-15] MEDS: PANTOPRAZOLE 40 MG TABLET (FP) PO SCH (11:33)
[2016-11-15] MEDS: SPIRONOLACTONE 25 MG TABLET (FP) PO SCH (11:33)
[2016-11-15] MEDS: FUROSEMIDE 20 MG TABLET (FP) PO SCH (11:34)
[2016-11-15] MEDS: RIFAXIMIN 550 MG TABLET (UD) PO SCH ×2 (11:34→20:59)
[2016-11-15] MEDS: COLLAGENASE CLOSTRIDIUM HIST. 30 GRAMS TUBE TP SCH (11:52)
[2016-11-15] MEDS: ASCORBIC ACID 500 MG TABLET (FP) PO SCH (11:52)
--- NOTE | 2016-11-15 12:22 | PN ---
Progress Note (short form) - Note Progress Note: PT states that he has had this wound for several months. He has been seen in the clinic at [facility]. He is having pain to this extremity this am. He has a male history of chronic EtOH abuse, cirrhosis, varices, hep C, IVDA, substance abuse, chronic wound to RLE. He was found down and brought to the ER by his girlfriend. The patient was recently discharge from [facility]. Vital Signs Period Temp Pulse Resp BP Sys/Choi Pulse Ox Last 24 Hr 98.0 F-99.7 F 82-100 18-20 122-134/74-83 96 RLE: approx 15 x15 wound with granulated base, there are small, scattered areas of necrotic tissue. averagni 1 to 2 cm in size. No eschar. his b/l lower ext are warm to touch with distal DP/palpable +2 pulses. His right lower extremity has some swelling, no erythema. Duplex study-no evidnece of DVT CBC, BMP 11/15/16 07:15 11/15/16 07:15 Problem List - Problems (1) Ulcer of right calf Assessment/Plan: recommend to continue santyl/xeroform, telfa with gauze and kerlix daily elevate RLE for comfort and to decrease swelling IV abx as per ID D.w Dr. Garcia, at this time no surgical debridment is needed. Apply Santyl to small areas of tissue which need debridement. Code(s): L97.219 - NON-PRESSURE CHRONIC ULCER OF RIGHT CALF WITH UNSP SEVERITY Qualifiers: Non-pressure ulcer stage: limited to breakdown of skin Qualified Code(s): L97.211 - Non-pressure chronic ulcer of right calf limited to breakdown of skin; L97.211 - Non-pressure chronic ulcer of right calf limited to breakdown of skin; L97.211 - Non-pressure chronic ulcer of right calf limited to breakdown of skin; L97.211 - Non-pressure chronic ulcer of right calf limited to breakdown of skin
[2016-11-15] MEDS ORDERED: METHADONE HCL 10 MG TABLET PO SCH (13:00)
[2016-11-15] MEDS: METHADONE HCL 10 MG TABLET PO SCH (13:33)
[2016-11-15] MEDS ORDERED: LORazepam 1 MG TABLET PO PRN (13:34)
--- NOTE | 2016-11-15 13:49 | PN ---
Teaching Attending Note Name of Resident: Shanita Ying ATTENDING PHYSICIAN STATEMENT I saw and evaluated the patient. I reviewed the resident's note and discussed the case with the resident. I agree with the resident's findings and plan as documented. SUBJECTIVE:c/o RLE pain. states pain has been progressively worsening. states this is why he came to the hospital. does not recall events of yesterday. admits to drinking on monday but refuses cocaine or IV drug use. denies abdominal pain. states his abdomen is not distended and this is normal for him. denies paracentesis in the past. denies CP, SOB, fever, chills, N/V/C/D, [place]OW[place], auditory/visual/tactile hallucinations, no hx of withdrawal seizures or DT's No BM since arrival OBJECTIVE: Last Vital Signs Temp Pulse Resp BP Pulse Ox 98.9 F 100 H 20 130/83 96 11/15/16 06:20 11/15/16 06:20 11/15/16 06:20 11/15/16 06:20 11/14/16 21:00 General A&O x3 CV S1 S2 RRR no murmur/rub/gallop Lungs CTA B/L no wheezing/rales/rhonchi Abdomen soft +distended. dull to percussion. midline scar Extremities RLE +warmth, +tender multiple ulcers with +active drainage +slough + foul odor +edema. no tremors ASSESSMENT AND PLAN: 46yo M with PMH continuous ETOH dependence, Cirrhosis, HCV, SBO s/p resection, possible methadone abuse presented to the ER with AMS 1. Acute toxic encephalopathy- likely due to Hyperammonemia vs severe sepsis due to RLE cellulitis vs SBP vs acute intoxication- mental status appears to be at baseline. no BM yet. will cont lactulose with titration to 2-3 BM daily. states that he is following with automatic dry starch operator at [facility] (unknown name). abdomen is distended but low concern for SBP at this time. evaluated the leg with surgical PA who recommends chemical debridement with collagenase. if no improvement will possibly require debridement in a few days. abx switched to Unasyn day 2. doppler negative for DVT. cont to hold any sedating drugs. ID and vascular surgery consulted 2. Microcytic anemia- no reports of bleeding. repeat cbc yesterday improved. iron studies pending. no indication for transfusion. txn for Hgb <7 3. Hypokalemia- resolved 4. thrombocytopenia- likely due to cirrhosis. near baseline 80-90's. as pt has no active bleeding no indication for platelet transfusion. monitor for now 5. Pseudohypocalcemia- Corrected Ca 9.2 6. Continuous polysubstance abuse- Utox +opiates, BZD, cocaine. CIWA 0. no signs of withdrawals. not on methadone at this time. last dose received 10/15/16 and not indicated at this time. as per detox specialist recommends oxy RTC to prevent opiate withdrawal. will leave for now. ativan QHS for agitation. will avoid long acting bzd with liver disease. counseled on need for drug abstinence. will go to [facility] [place] for opiate detox and rehab once medically optimized. cont thiamine/folate/MVI 7. Cirrhosis- due to HCV vs ETOH. with apparent ascites although pt states his abdomen does not appear larger than usual. low concern for SBP given no pain. he reports he had abdominal u/s but as per RN he refused it. would ultimately require paracentesis if he does have ascites to characterize fluid but would need to confirm first. would defer for now. should follow up with automatic dry starch operator fur further management. cont spirolactone, lasix, and rifaxamin. transaminits at baseline 8. DVT ppx- hold pharmacologic prophylaxis in setting of anemia
--- NOTE | 2016-11-15 14:08 | PN ---
Progress Note, Physician History of Present Illness: patient stable no new issues - Current Medication List Current Medications: Active Medications Ascorbic Acid (Vitamin C -) 500 mg PO DAILY [facility] Last Admin: 11/15/16 11:52 Dose: 500 mg Collagenase (Santyl -) 1 applic TP DAILY [facility] Last Admin: 11/15/16 11:52 Dose: 1 applic Folic Acid (Folic Acid -) 1 mg PO DAILY [facility] Last Admin: 11/15/16 11:31 Dose: 1 mg Furosemide (Lasix -) 20 mg PO DAILY [facility] Last Admin: 11/15/16 11:34 Dose: 20 mg Ampicillin Sodium/Sulbactam (Sodium 3 gm/ Sodium Chloride) 100 mls @ 200 mls/ hr IVPB Q8H-IV [facility] Last Admin: 11/15/16 11:32 Dose: 200 mls/hr Lactulose (Cephulac (Oral Use)) 30 gm PO TID [facility] Last Admin: 11/15/16 13:35 Dose: 30 gm Lorazepam (Ativan -) 2 mg PO HS PRN PRN Reason: ANXIETY Methadone HCl (Dolophine -) 10 mg PO Q12H [facility] Last Admin: 11/15/16 13:33 Dose: 10 mg Methadone HCl (Dolophine -) 5 mg PO DAILY@0600 [facility] Oxycodone HCl (Roxicodone -) 5 mg PO Q6H PRN PRN Reason: PAIN Last Admin: 11/15/16 11:51 Dose: 5 mg Pantoprazole Sodium (Protonix -) 40 mg PO DAILY [facility] Last Admin: 11/15/16 11:33 Dose: 40 mg Rifaximin (Xifaxan -) 550 mg PO BID [facility] Last Admin: 11/15/16 11:34 Dose: 550 mg Spironolactone (Aldactone -) 50 mg PO DAILY [facility] Last Admin: 11/15/16 11:33 Dose: 50 mg Thiamine HCl (Vitamin B1 -) 100 mg PO DAILY [facility] Last Admin: 11/15/16 11:31 Dose: 100 mg - Objective Vital Signs: Vital Signs Temperature 98.9 F 11/15/16 06:20 Pulse Rate 100 H 11/15/16 06:20 Respiratory Rate 20 11/15/16 06:20 Blood Pressure 130/83 11/15/16 06:20 O2 Sat by Pulse Oximetry (%) 96 11/14/16 21:00 Constitutional: Yes: No Distress, Calm Cardiovascular: Yes: Regular Rate and Rhythm Respiratory: Yes: Regular, CTA Bilaterally Gastrointestinal: Yes: Normal Bowel Sounds, Soft Musculoskeletal: Yes: Other Extremities: Yes: Other (non healing wound) Wound/Incision: Yes: Reddened, Other Psychiatric: Yes: Alert, Other Labs: CBC, BMP 11/15/16 07:15 11/15/16 07:15 INR, PTT INR 1.75 (0.82-1.09) H 11/14/16 08:35 Assessment/Plan Intoxication #Cellulitis #Hepatic encephalopathy/Cirrhosis #Hypokalemia #Lactic Acidosis plan continue current mgmt when patient ready for discharge might be able to switch to oral
[2016-11-15 16:49] LABS: MCH 22.6 pg (25.7-33.7); MCHC 31.8 g/dl (32.0-35.9); MEAN CELL VOLUME 71.1 fl (80-96); MEAN PLT VOLUME 8.3 fl (7.5-11.1); PLATELET COUNT 93 K/MM3 (134-434); RDW 20.7 % (11.9-15.9); WHITE BLOOD COUNT 5.6 K/mm3 (4.0-10.0)
[2016-11-15] MEDS ORDERED: PT OWN MED DRAWER 7, Y5N ONE (17:53)
[2016-11-16] MEDS: METHADONE HCL 10 MG TABLET PO SCH ×2 (00:51→14:09)
[2016-11-16] MEDS: AMPICILLIN NA/SULBACTAM NA 3 GM in SODIUM CHLORIDE 100 ML IVPB SCH ×3 (02:36→17:41)
[2016-11-16] MEDS: LACTULOSE 20 GM/30 ML UDC (FOR ORAL USE ONLY) PO SCH ×2 (05:51→21:03)
[2016-11-16] MEDS ORDERED: METHADONE HCL 5 MG TABLET PO SCH (06:00)
[2016-11-16] MEDS: oxyCODONE HCL 5 MG TABLET PO PRN ×2 (09:13→20:55)
[2016-11-16] MEDS: FUROSEMIDE 20 MG TABLET (FP) PO SCH (09:13)
[2016-11-16] MEDS: FOLIC ACID 1 MG TABLET (FP) PO SCH (09:14)
[2016-11-16] MEDS: SPIRONOLACTONE 25 MG TABLET (FP) PO SCH (09:14)
[2016-11-16] MEDS: THIAMINE HCL 100 MG TABLET (FP) PO SCH (09:14)
[2016-11-16] MEDS: PANTOPRAZOLE 40 MG TABLET (FP) PO SCH (09:14)
[2016-11-16] MEDS: RIFAXIMIN 550 MG TABLET (UD) PO SCH ×2 (09:14→21:03)
[2016-11-16] MEDS: ASCORBIC ACID 500 MG TABLET (FP) PO SCH (09:14)
[2016-11-16] MEDS ORDERED: PT OWN MED DRAWER 7, Y5N ONE ×2 (09:29→17:40)
[2016-11-16] MEDS: COLLAGENASE CLOSTRIDIUM HIST. 30 GRAMS TUBE TP SCH (09:33)
[2016-11-16] MEDS ORDERED: chlordiazePOXIDE 5 MG CAPSULE PO SCH (11:00)
[2016-11-16] MEDS ORDERED: LACTULOSE 20 GM/30 ML UDC (FOR ORAL USE ONLY) PO PRN (11:44)
[2016-11-16] MEDS ORDERED: LACTULOSE 20 GM/30 ML UDC (FOR ORAL USE ONLY) PO SCH (14:00)
[2016-11-16] MEDS: FERROUS SO4 325 MG TABLET (FP) PO SCH (14:09)
--- NOTE | 2016-11-16 14:59 | PN ---
Physical Exam: SUBJECTIVE: Patient seen and examined. No acute events overnight. Patient still complains of pain in his RLE but better today with pain medications. He had 1 bowel movement since yesterday. He denies nausea, vomiting, fever, dizziness. OBJECTIVE: Vital Signs Period Temp Pulse Resp BP Sys/Choi Pulse Ox Last 24 Hr 98.0 F-99.0 F 82-90 19-21 107-125/57-76 95 GENERAL: alert, lethargic, oriented x 3 HEAD: Normal with no signs of trauma. EYES: 1mm pupils, minimally reactive ENT: oropharynx clear without exudates, moist mucous membranes. NECK: supple. LUNGS: Breath sounds equal, clear to auscultation bilaterally, no wheezes, no crackles, no accessory muscle use. HEART: Regular rate and rhythm, S1, S2 with 4/6 crescendo-decrescendo murmur ABDOMEN: Distended, Ascites, normoactive bowel sounds, nontender EXTREMITIES: RLE tenderness with warmth, edematous, erythematous, ulcerated, drainage, and foul odor. SKIN: Warm, dry, normal turgor, no rashes or lesions noted Laboratory Results - last 24 hr 11/15/16 11/15/16 16:10 16:10 WBC 5.6 RBC 3.62 L Hgb 8.2 L Hct 25.7 L MCV 71.1 L MCH 22.6 L MCHC 31.8 L RDW 20.7 H Plt Count 93 L MPV 8.3 Ferritin 17.514 Active Medications Generic Name Dose Route Start Last Admin Trade Name Freq PRN Reason Stop Dose Admin Ascorbic Acid 500 mg 11/14/16 10:00 11/16/16 09:14 Vitamin C - PO 500 mg DAILY [facility] Administration Collagenase 1 applic 11/14/16 19:45 11/16/16 09:33 Santyl - TP 1 applic DAILY [facility] Administration Ferrous Sulfate 325 mg 11/16/16 13:30 11/16/16 14:09 Feosol - PO 325 mg DAILY [facility] Administration Folic Acid 1 mg 11/14/16 10:00 11/16/16 09:14 Folic Acid - PO 1 mg DAILY [facility] Administration Furosemide 20 mg 11/14/16 17:45 11/16/16 09:13 Lasix - PO 20 mg DAILY [facility] Administration Ampicillin Sodium/Sulbactam 100 mls @ 200 mls/hr 11/14/16 14:00 11/16/16 09:33 Sodium 3 gm/ Sodium Chloride IVPB 200 mls/hr Q8H-IV [facility] Administration Lactulose 30 gm 11/16/16 11:44 Cephulac (Oral Use) PO QID PRN CONSTIPATION Lorazepam 2 mg 11/15/16 13:34 Ativan - PO HS PRN ANXIETY Methadone HCl 10 mg 11/15/16 13:00 11/16/16 14:09 Dolophine - PO 10 mg Q12H [facility] Administration Oxycodone HCl 5 mg 11/15/16 18:23 11/16/16 09:13 Roxicodone - PO 5 mg Q4H PRN Administration PAIN Pantoprazole Sodium 40 mg 11/14/16 10:00 11/16/16 09:14 Protonix - PO 40 mg DAILY [facility] Administration Rifaximin 550 mg 11/15/16 10:00 11/16/16 09:14 Xifaxan - PO 550 mg BID [facility] Administration Spironolactone 50 mg 11/14/16 17:45 11/16/16 09:14 Aldactone - PO 50 mg DAILY [facility] Administration Thiamine HCl 100 mg 11/14/16 10:00 11/16/16 09:14 Vitamin B1 - PO 100 mg DAILY [facility] Administration ASSESSMENT/PLAN: #Acute toxic encephalopathy - Hyperammonemia vs Severe Sepsis due to RLE cellulitis vs SBP -improved mental status, likely at baseline -distended abdomen (worse than yesterday), ascites -refused liver US yesterday. agreed for today at 6pm -continue Lactulose 30mg q6 - continue rifaximin 550 PO BID -LFT's trending down -Continue Unasyn (day 3) -Duplex negative -Says he has a community center worker at [facility] but has not seen him in a long time #RLE cellulitis - last wbc 5.6 -multiple previous admissions for same problem -chronic, non-compliant -debridement not recommended as per Vascular -Continue santyl/xeroform, telfa with gauze and kerlix daily - ID on board -continue Unasyn (day 3) #Polysubstance abuse -held librium- will monitor withdrawal symptoms -Ativan 2mg PO daily -Methadone 10mg q12 -utox + for opiates, BZD, cocaine, CIWA 0 -thiamine -folate -FU detox specialist- recommends PRN short acting ativan for withdrawal and methadone -will go to [facility] for detox and rehab once medically optimized -will monitor for worsening signs of withdrawal -should follow up with community center worker outpatient -continue spirolactone, lasix, and rifaxamin #Cirrhosis -likely from ETOH vs. HCV -ascites, today patient says abdominal distension is new. yesterday he said it was chronic. -low concern for SBP #Thrombocytopenia -likely from cirrhosis -baseline 80-90 -will monitor #Microcytic anemia -no signs of bleeding -iron deficiency -monitor H&H -treat if hemoglobin <7 #Hypokalemia -resolved #FEN -Not on any fluids -WNL -Sodium controlled diet #DVT PPX -held (thrombocytopenia) Visit type - Emergency Visit Emergency Visit: Yes ED Registration Date: 11/14/16 Care time: The patient presented to the Emergency Department on the above date and was hospitalized for further evaluation of their emergent condition. - New Patient This patient is new to me today: No - Critical Care Critical Care patient: No
--- NOTE | 2016-11-16 15:25 | PN ---
Progress Note, Physician History of Present Illness: patient is awake but still zonked looks comfortable - Current Medication List Current Medications: Active Medications Ascorbic Acid (Vitamin C -) 500 mg PO DAILY [facility] Last Admin: 11/16/16 09:14 Dose: 500 mg Collagenase (Santyl -) 1 applic TP DAILY [facility] Last Admin: 11/16/16 09:33 Dose: 1 applic Ferrous Sulfate (Feosol -) 325 mg PO DAILY [facility] Last Admin: 11/16/16 14:09 Dose: 325 mg Folic Acid (Folic Acid -) 1 mg PO DAILY [facility] Last Admin: 11/16/16 09:14 Dose: 1 mg Furosemide (Lasix -) 20 mg PO DAILY [facility] Last Admin: 11/16/16 09:13 Dose: 20 mg Ampicillin Sodium/Sulbactam (Sodium 3 gm/ Sodium Chloride) 100 mls @ 200 mls/ hr IVPB Q8H-IV [facility] Last Admin: 11/16/16 09:33 Dose: 200 mls/hr Lactulose (Cephulac (Oral Use)) 30 gm PO QID PRN PRN Reason: CONSTIPATION Lorazepam (Ativan -) 2 mg PO HS PRN PRN Reason: ANXIETY Methadone HCl (Dolophine -) 10 mg PO Q12H [facility] Last Admin: 11/16/16 14:09 Dose: 10 mg Oxycodone HCl (Roxicodone -) 5 mg PO Q4H PRN PRN Reason: PAIN Last Admin: 11/16/16 09:13 Dose: 5 mg Pantoprazole Sodium (Protonix -) 40 mg PO DAILY [facility] Last Admin: 11/16/16 09:14 Dose: 40 mg Rifaximin (Xifaxan -) 550 mg PO BID [facility] Last Admin: 11/16/16 09:14 Dose: 550 mg Spironolactone (Aldactone -) 50 mg PO DAILY [facility] Last Admin: 11/16/16 09:14 Dose: 50 mg Thiamine HCl (Vitamin B1 -) 100 mg PO DAILY [facility] Last Admin: 11/16/16 09:14 Dose: 100 mg - Objective Vital Signs: Vital Signs Temperature 98.0 F 11/16/16 14:00 Pulse Rate 87 11/16/16 14:00 Respiratory Rate 20 11/16/16 14:00 Blood Pressure 118/76 11/16/16 14:00 O2 Sat by Pulse Oximetry (%) 95 11/15/16 20:14 Constitutional: Yes: No Distress, Calm Cardiovascular: Yes: Regular Rate and Rhythm Respiratory: Yes: Regular, Poor Air Entry Gastrointestinal: Yes: Normal Bowel Sounds, Soft, Ascites, Distention Musculoskeletal: Yes: WNL Extremities: Yes: Other Integumentary: Yes: Erythema Wound/Incision: Yes: Dressing Dry and Intact Neurological: Yes: Alert Psychiatric: Yes: Alert Labs: CBC, BMP 11/15/16 16:10 11/15/16 07:15 INR, PTT INR 1.75 (0.82-1.09) H 11/14/16 08:35 Assessment/Plan Intoxication #Cellulitis #Hepatic encephalopathy/Cirrhosis #Hypokalemia #Lactic Acidosis plan patient going to be worked up for ascites patient to continue abx rest as per primary will check wound tomorrow
[2016-11-16] MEDS ORDERED: LORazepam 0.5 MG TABLET PO PRN (17:05)
--- NOTE | 2016-11-16 17:05 | PN ---
[facility] CIWA - CIWA Score Nausea/Vomitin-Mild Nausea/No Vomiting Muscle Tremors: 3 Anxiety: 4-Mod. Anxious/Guarded Agitation: 3 Paroxysmal Sweats: No Perspiration Orientation: 0-Oriented Tacttile Disturbances: 0-None Auditory Disturbances: 0-None Visual Disturbances: 0-None Headache: 0-None Present CIWA-Ar Total Score: 11 S COWS - Scale Resting Pulse: 1= PA 81-100 Sweatin= No chills or Flushing Restless Observation: 0= Sits Still Pupil Size: 0= Normal to Room Light Bone or Joint Aches: 1= Mild Discomfort Runny Nose/ Eye Tearin= Nasal Congestion GI Upset > 30mins: 0= None Tremor Observation of Outstretched Hands: 2= Slight Tremor Visible Yawning Observation: 0= None Anxiety or Irritability: 2=Irritable/Anxious Goose Flesh Skin: 0=Smooth Skin COWS Score: 7 [facility] Progress Note (SOAP) Subjective: c/o anxiety, body aches, tremor, insomnia and sweats Objective: 11/16/16 17:02 Vital Signs - 8 hr 11/16/16 14:00 Temperature 98.0 F Pulse Rate 87 Respiratory 20 Rate Blood Pressure 118/76 Laboratory Tests 11/14/16 11/14/16 11/14/16 01:13 01:22 01:22 WBC 5.4 RBC 3.98 L Hgb 8.9 L Hct 28.0 L MCV 70.5 L MCH 22.4 L MCHC 31.8 L RDW 20.6 H D Plt Count 137 D MPV 8.3 Neutrophils % 62.4 Lymphocytes % 19.3 Monocytes % 12.8 H Eosinophils % 4.8 H Basophils % 0.7 Hypochromia 1+ Platelet Estimate Adequate Anisocytosis 2+ Morphology Comment PT with INR 18.90 H INR 1.70 H PTT (Actin FS) 31.4 VBG pH POC VBG pCO2 POC VBG pO2 Mixed VBG HCO3 Sodium Potassium Chloride Carbon Dioxide Anion Gap BUN Creatinine Creat Clearance w eGFR Random Glucose Specific Parrish Lactic Acid 2.9 H* Calcium Phosphorus Magnesium Iron TIBC Iron Saturation Transferrin Ferritin Total Bilirubin Direct Bilirubin AST ALT Alkaline Phosphatase Ammonia Creatine Kinase Creatine Kinase Index CK-MB (CK-2) Troponin I Total Protein Albumin Vitamin B12 Serum Folate Urine Color Urine Appearance Urine pH Ur Specific Parrish Urine Protein Urine Glucose (UA) Urine Ketones Urine Blood Urine Nitrite Urine Bilirubin Urine Urobilinogen Urine RBC Urine WBC Ur Epithelial Cells Urine Mucus Urine Butalbital Ur Butalbital Confirm Opiates Screen Urine Opiates Screen Meperidine Urine Normeperidine U Normeperidine GC/MS Urine Codeine U Codeine Confrm GC/MS Urine Morphine Morphine Confirm GC/MS Urine Hydrocodone Ur Hydrocodone (GC/MS) Oxycodone Urine Oxycodone Ur Oxycodone GC/MS Oxymorphone Confirm U Oxycodone/Oxymorphon Methadone Screen Ur Methadone Ur Methadone Confirm Ur Hydromorphone Ur Hydromorphone (GC/MS) Urine Propoxyphene U Propoxyphene/M GC/MS Barbiturate Screen Ur Barbiturates Screen Urine Barbiturates Phencyclidine Screen Ur Phencyclidine (PCP) Ur PCP Confirm (GC/MS) Amphetamines Amphetamines Grp GC/MS Ur Amphetamines Screen Urine Amphetamine Ur Amphetamines, Quant Methamphetamine Methamphetamine GC/MS MDMA (Ecstasy) Screen Urine Amobarbital Ur Amobarbital GC/MS Urine Pentobarbital U Pentobarbital GC/MS Urine Phenobarbital U Phenobarbital GC/MS Urine Secobarbital U Secobarbital GC/MS Urine Alprazolam U OH-Alprazolam GC/MS Benzodiazepines Screen U Benzodiazepines Scrn Urine Clonazepam U 7-Amino Clonazep GC/MS Ur Nordiazepam Ur Nordiazepam GC/MS Flurazepam Flurazepam Confirm Lorazepam Urine Lorazepam Ur Oxazepam U Oxazepam Confm GC/MS Urine Temazepam Ur Temazepam (GC/MS) Urine Triazolam Ur Triazolam (GC/MS) Meperidine (GC/MS) Ur Meperidine Cocaine Screen Cocaine & Metabolite Urine Cocaine Benzoylecgonine Cannabinoids Urine Cannabinoids U Marijuana (THC) Screen Urine Marijuana (THC) Drug Test Comment Alcohol, Quantitative Urine Ethyl Alcohol Anti-A Titer Blood Type Antibody Screen Spec Expiration Date 11/14/16 11/14/16 11/14/16 01:22 02:00 02:00 WBC RBC Hgb Hct MCV MCH MCHC RDW Plt Count MPV Neutrophils % Lymphocytes % Monocytes % Eosinophils % Basophils % Hypochromia Platelet Estimate Anisocytosis Morphology Comment PT with INR INR PTT (Actin FS) VBG pH POC VBG pCO2 POC VBG pO2 Mixed VBG HCO3 Sodium Potassium Chloride Carbon Dioxide Anion Gap BUN Creatinine Cancelled Creat Clearance w eGFR Random Glucose Specific Parrish Cancelled Lactic Acid Calcium Phosphorus Magnesium Iron TIBC Iron Saturation Transferrin Ferritin Total Bilirubin Direct Bilirubin AST ALT Alkaline Phosphatase Ammonia Creatine Kinase Creatine Kinase Index CK-MB (CK-2) Troponin I Total Protein Albumin Vitamin B12 Serum Folate Urine Color Yellow Urine Appearance Slcloudy Urine pH 5.0 D Ur Specific Parrish 1.020 Urine Protein 1+ H Urine Glucose (UA) Negative Urine Ketones Negative Urine Blood Negative Urine Nitrite Negative Urine Bilirubin 2.0 Urine Urobilinogen 4.0 e.u/dl Urine RBC 2 Urine WBC 3 Ur Epithelial Cells Rare Urine Mucus Many Urine Butalbital Cancelled Ur Butalbital Confirm Cancelled Opiates Screen Urine Opiates Screen Cancelled Meperidine Cancelled Urine Normeperidine Cancelled U Normeperidine GC/MS Cancelled Urine Codeine Cancelled U Codeine Confrm GC/MS Cancelled Urine Morphine Cancelled Morphine Confirm GC/MS Cancelled Urine Hydrocodone Cancelled Ur Hydrocodone (GC/MS) Cancelled Oxycodone Cancelled Urine Oxycodone Cancelled Ur Oxycodone GC/MS Cancelled Oxymorphone Confirm Cancelled U Oxycodone/Oxymorphon Cancelled Methadone Screen Ur Methadone Cancelled Ur Methadone Confirm Cancelled Ur Hydromorphone Cancelled Ur Hydromorphone (GC/MS) Cancelled Urine Propoxyphene Cancelled U Propoxyphene/M GC/MS Cancelled Barbiturate Screen Ur Barbiturates Screen Cancelled Urine Barbiturates Cancelled Phencyclidine Screen Ur Phencyclidine (PCP) Cancelled Ur PCP Confirm (GC/MS) Cancelled Amphetamines Cancelled Amphetamines Grp GC/MS Cancelled Ur Amphetamines Screen Urine Amphetamine Cancelled Ur Amphetamines, Quant Cancelled Methamphetamine Cancelled Methamphetamine GC/MS Cancelled MDMA (Ecstasy) Screen Urine Amobarbital Cancelled Ur Amobarbital GC/MS Cancelled Urine Pentobarbital Cancelled U Pentobarbital GC/MS Cancelled Urine Phenobarbital Cancelled U Phenobarbital GC/MS Cancelled Urine Secobarbital Cancelled U Secobarbital GC/MS Cancelled Urine Alprazolam Cancelled U OH-Alprazolam GC/MS Cancelled Benzodiazepines Screen U Benzodiazepines Scrn Cancelled Urine Clonazepam Cancelled U 7-Amino Clonazep GC/MS Cancelled Ur Nordiazepam Cancelled Ur Nordiazepam GC/MS Cancelled Flurazepam Cancelled Flurazepam Confirm Cancelled Lorazepam Cancelled Urine Lorazepam Cancelled Ur Oxazepam Cancelled U Oxazepam Confm GC/MS Cancelled Urine Temazepam Cancelled Ur Temazepam (GC/MS) Cancelled Urine Triazolam Cancelled Ur Triazolam (GC/MS) Cancelled Meperidine (GC/MS) Cancelled Ur Meperidine Cancelled Cocaine Screen Cocaine & Metabolite Cancelled Urine Cocaine Cancelled Benzoylecgonine Cancelled Cannabinoids Cancelled Urine Cannabinoids Cancelled U Marijuana (THC) Screen Urine Marijuana (THC) Cancelled Drug Test Comment Cancelled Alcohol, Quantitative Urine Ethyl Alcohol Cancelled Anti-A Titer Cancelled Blood Type Cancelled Antibody Screen Cancelled Spec Expiration Date Cancelled 11/14/16 11/14/16 11/14/16 02:20 02:23 02:23 WBC RBC Hgb Hct MCV MCH MCHC RDW Plt Count MPV Neutrophils % Lymphocytes % Monocytes % Eosinophils % Basophils % Hypochromia Platelet Estimate Anisocytosis Morphology Comment PT with INR INR PTT (Actin FS) VBG pH POC VBG pCO2 POC VBG pO2 Mixed VBG HCO3 Sodium Cancelled 144 Potassium Cancelled 3.1 L Chloride Cancelled 107 Carbon Dioxide Cancelled 25 Anion Gap Cancelled 12 BUN Cancelled 5 L Creatinine Cancelled 0.4 L D Creat Clearance w eGFR Cancelled > 60 Random Glucose Cancelled 91 Specific Parrish Lactic Acid Calcium Cancelled 7.4 L Phosphorus Magnesium Iron TIBC Iron Saturation Transferrin Ferritin Total Bilirubin Cancelled 1.5 H D Direct Bilirubin AST Cancelled 62 H D ALT Cancelled 34 D Alkaline Phosphatase Cancelled 143 H D Ammonia 114.80 H Creatine Kinase 298 Creatine Kinase Index 0.7 CK-MB (CK-2) 2.140 Troponin I < 0.02 Total Protein Cancelled 6.1 L Albumin Cancelled 1.9 L D Vitamin B12 Serum Folate Urine Color Urine Appearance Urine pH Ur Specific Parrish Urine Protein Urine Glucose (UA) Urine Ketones Urine Blood Urine Nitrite Urine Bilirubin Urine Urobilinogen Urine RBC Urine WBC Ur Epithelial Cells Urine Mucus Urine Butalbital Ur Butalbital Confirm Opiates Screen Urine Opiates Screen Meperidine Urine Normeperidine U Normeperidine GC/MS Urine Codeine U Codeine Confrm GC/MS Urine Morphine Morphine Confirm GC/MS Urine Hydrocodone Ur Hydrocodone (GC/MS) Oxycodone Urine Oxycodone Ur Oxycodone GC/MS Oxymorphone Confirm U Oxycodone/Oxymorphon Methadone Screen Ur Methadone Ur Methadone Confirm Ur Hydromorphone Ur Hydromorphone (GC/MS) Urine Propoxyphene U Propoxyphene/M GC/MS Barbiturate Screen Ur Barbiturates Screen Urine Barbiturates Phencyclidine Screen Ur Phencyclidine (PCP) Ur PCP Confirm (GC/MS) Amphetamines Amphetamines Grp GC/MS Ur Amphetamines Screen Urine Amphetamine Ur Amphetamines, Quant Methamphetamine Methamphetamine GC/MS MDMA (Ecstasy) Screen Urine Amobarbital Ur Amobarbital GC/MS Urine Pentobarbital U Pentobarbital GC/MS Urine Phenobarbital U Phenobarbital GC/MS Urine Secobarbital U Secobarbital GC/MS Urine Alprazolam U OH-Alprazolam GC/MS Benzodiazepines Screen U Benzodiazepines Scrn Urine Clonazepam U 7-Amino Clonazep GC/MS Ur Nordiazepam Ur Nordiazepam GC/MS Flurazepam Flurazepam Confirm Lorazepam Urine Lorazepam Ur Oxazepam U Oxazepam Confm GC/MS Urine Temazepam Ur Temazepam (GC/MS) Urine Triazolam Ur Triazolam (GC/MS) Meperidine (GC/MS) Ur Meperidine Cocaine Screen Cocaine & Metabolite Urine Cocaine Benzoylecgonine Cannabinoids Urine Cannabinoids U Marijuana (THC) Screen Urine Marijuana (THC) Drug Test Comment Alcohol, Quantitative Urine Ethyl Alcohol Anti-A Titer Blood Type Antibody Screen Spec Expiration Date 11/14/16 11/14/16 11/14/16 02:23 02:23 02:45 WBC RBC Hgb Hct MCV MCH MCHC RDW Plt Count MPV Neutrophils % Lymphocytes % Monocytes % Eosinophils % Basophils % Hypochromia Platelet Estimate Anisocytosis Morphology Comment PT with INR INR PTT (Actin FS) VBG pH POC VBG pCO2 POC VBG pO2 Mixed VBG HCO3 Sodium Potassium Chloride Carbon Dioxide Anion Gap BUN Creatinine Creat Clearance w eGFR Random Glucose Specific Parrish Lactic Acid Calcium Phosphorus Magnesium Iron TIBC Iron Saturation Transferrin Ferritin Total Bilirubin Direct Bilirubin AST ALT Alkaline Phosphatase Ammonia Creatine Kinase Creatine Kinase Index CK-MB (CK-2) Troponin I Total Protein Albumin Vitamin B12 Serum Folate Urine Color Urine Appearance Urine pH Ur Specific Parrish Urine Protein Urine Glucose (UA) Urine Ketones Urine Blood Urine Nitrite Urine Bilirubin Urine Urobilinogen Urine RBC Urine WBC Ur Epithelial Cells Urine Mucus Urine Butalbital Ur Butalbital Confirm Opiates Screen Positive Urine Opiates Screen Meperidine Urine Normeperidine U Normeperidine GC/MS Urine Codeine U Codeine Confrm GC/MS Urine Morphine Morphine Confirm GC/MS Urine Hydrocodone Ur Hydrocodone (GC/MS) Oxycodone Urine Oxycodone Ur Oxycodone GC/MS Oxymorphone Confirm U Oxycodone/Oxymorphon Methadone Screen Negative Ur Methadone Ur Methadone Confirm Ur Hydromorphone Ur Hydromorphone (GC/MS) Urine Propoxyphene U Propoxyphene/M GC/MS Barbiturate Screen Negative Ur Barbiturates Screen Urine Barbiturates Phencyclidine Screen Negative Ur Phencyclidine (PCP) Ur PCP Confirm (GC/MS) Amphetamines Amphetamines Grp GC/MS Ur Amphetamines Screen Negative Urine Amphetamine Ur Amphetamines, Quant Methamphetamine Methamphetamine GC/MS MDMA (Ecstasy) Screen Negative Urine Amobarbital Ur Amobarbital GC/MS Urine Pentobarbital U Pentobarbital GC/MS Urine Phenobarbital U Phenobarbital GC/MS Urine Secobarbital U Secobarbital GC/MS Urine Alprazolam U OH-Alprazolam GC/MS Benzodiazepines Screen Positive U Benzodiazepines Scrn Urine Clonazepam U 7-Amino Clonazep GC/MS Ur Nordiazepam Ur Nordiazepam GC/MS Flurazepam Flurazepam Confirm Lorazepam Urine Lorazepam Ur Oxazepam U Oxazepam Confm GC/MS Urine Temazepam Ur Temazepam (GC/MS) Urine Triazolam Ur Triazolam (GC/MS) Meperidine (GC/MS) Ur Meperidine Cocaine Screen Positive Cocaine & Metabolite Urine Cocaine Benzoylecgonine Cannabinoids Urine Cannabinoids U Marijuana (THC) Screen Negative Urine Marijuana (THC) Drug Test Comment Alcohol, Quantitative 102.2 H* Urine Ethyl Alcohol Anti-A Titer Blood Type B NEGATIVE Antibody Screen Negative Spec Expiration Date 11/14/16 11/14/16 11/14/16 04:00 04:25 08:35 WBC 5.0 RBC 3.51 L Hgb 7.8 L D Hct 24.6 L MCV 70.0 L MCH 22.2 L MCHC 31.8 L RDW 20.0 H Plt Count 91 L D MPV 8.2 Neutrophils % Lymphocytes % Monocytes % Eosinophils % Basophils % Hypochromia Platelet Estimate Anisocytosis Morphology Comment PT with INR INR PTT (Actin FS) VBG pH 7.45 H POC VBG pCO2 37.9 L POC VBG pO2 80.0 H Mixed VBG HCO3 25.9 H Sodium Potassium Chloride Carbon Dioxide Anion Gap BUN Creatinine Creat Clearance w eGFR Random Glucose Specific Parrish Lactic Acid 1.7 Calcium Phosphorus Magnesium Iron TIBC Iron Saturation Transferrin Ferritin Total Bilirubin Direct Bilirubin AST ALT Alkaline Phosphatase Ammonia Creatine Kinase Creatine Kinase Index CK-MB (CK-2) Troponin I Total Protein Albumin Vitamin B12 Serum Folate Urine Color Urine Appearance Urine pH Ur Specific Parrish Urine Protein Urine Glucose (UA) Urine Ketones Urine Blood Urine Nitrite Urine Bilirubin Urine Urobilinogen Urine RBC Urine WBC Ur Epithelial Cells Urine Mucus Urine Butalbital Ur Butalbital Confirm Opiates Screen Urine Opiates Screen Meperidine Urine Normeperidine U Normeperidine GC/MS Urine Codeine U Codeine Confrm GC/MS Urine Morphine Morphine Confirm GC/MS Urine Hydrocodone Ur Hydrocodone (GC/MS) Oxycodone Urine Oxycodone Ur Oxycodone GC/MS Oxymorphone Confirm U Oxycodone/Oxymorphon Methadone Screen Ur Methadone Ur Methadone Confirm Ur Hydromorphone Ur Hydromorphone (GC/MS) Urine Propoxyphene U Propoxyphene/M GC/MS Barbiturate Screen Ur Barbiturates Screen Urine Barbiturates Phencyclidine Screen Ur Phencyclidine (PCP) Ur PCP Confirm (GC/MS) Amphetamines Amphetamines Grp GC/MS Ur Amphetamines Screen Urine Amphetamine Ur Amphetamines, Quant Methamphetamine Methamphetamine GC/MS MDMA (Ecstasy) Screen Urine Amobarbital Ur Amobarbital GC/MS Urine Pentobarbital U Pentobarbital GC/MS Urine Phenobarbital U Phenobarbital GC/MS Urine Secobarbital U Secobarbital GC/MS Urine Alprazolam U OH-Alprazolam GC/MS Benzodiazepines Screen U Benzodiazepines Scrn Urine Clonazepam U 7-Amino Clonazep GC/MS Ur Nordiazepam Ur Nordiazepam GC/MS Flurazepam Flurazepam Confirm Lorazepam Urine Lorazepam Ur Oxazepam U Oxazepam Confm GC/MS Urine Temazepam Ur Temazepam (GC/MS) Urine Triazolam Ur Triazolam (GC/MS) Meperidine (GC/MS) Ur Meperidine Cocaine Screen Cocaine & Metabolite Urine Cocaine Benzoylecgonine Cannabinoids Urine Cannabinoids U Marijuana (THC) Screen Urine Marijuana (THC) Drug Test Comment Alcohol, Quantitative Urine Ethyl Alcohol Anti-A Titer Blood Type Antibody Screen Spec Expiration Date 11/14/16 11/14/16 11/14/16 08:35 08:35 08:35 WBC RBC Hgb Hct MCV MCH MCHC RDW Plt Count MPV Neutrophils % Lymphocytes % Monocytes % Eosinophils % Basophils % Hypochromia Platelet Estimate Anisocytosis Morphology Comment PT with INR 19.50 H INR 1.75 H PTT (Actin FS) 35.6 H VBG pH POC VBG pCO2 POC VBG pO2 Mixed VBG HCO3 Sodium 144 Potassium 3.5 Chloride 109 H Carbon Dioxide 26 Anion Gap 9 BUN 5 L Creatinine 0.4 L Creat Clearance w eGFR Random Glucose 91 Specific Parrish Lactic Acid Calcium 7.6 L Phosphorus 3.1 D Magnesium 1.9 Iron TIBC Iron Saturation Transferrin Ferritin 15 L Total Bilirubin Direct Bilirubin AST ALT Alkaline Phosphatase Ammonia Creatine Kinase Creatine Kinase Index CK-MB (CK-2) Troponin I Total Protein Albumin Vitamin B12 1016 H D Cancelled Serum Folate 18 H Urine Color Urine Appearance Urine pH Ur Specific Parrish Urine Protein Urine Glucose (UA) Urine Ketones Urine Blood Urine Nitrite Urine Bilirubin Urine Urobilinogen Urine RBC Urine WBC Ur Epithelial Cells Urine Mucus Urine Butalbital Ur Butalbital Confirm Opiates Screen Urine Opiates Screen Meperidine Urine Normeperidine U Normeperidine GC/MS Urine Codeine U Codeine Confrm GC/MS Urine Morphine Morphine Confirm GC/MS Urine Hydrocodone Ur Hydrocodone (GC/MS) Oxycodone Urine Oxycodone Ur Oxycodone GC/MS Oxymorphone Confirm U Oxycodone/Oxymorphon Methadone Screen Ur Methadone Ur Methadone Confirm Ur Hydromorphone Ur Hydromorphone (GC/MS) Urine Propoxyphene U Propoxyphene/M GC/MS Barbiturate Screen Ur Barbiturates Screen Urine Barbiturates Phencyclidine Screen Ur Phencyclidine (PCP) Ur PCP Confirm (GC/MS) Amphetamines Amphetamines Grp GC/MS Ur Amphetamines Screen Urine Amphetamine Ur Amphetamines, Quant Methamphetamine Methamphetamine GC/MS MDMA (Ecstasy) Screen Urine Amobarbital Ur Amobarbital GC/MS Urine Pentobarbital U Pentobarbital GC/MS Urine Phenobarbital U Phenobarbital GC/MS Urine Secobarbital U Secobarbital GC/MS Urine Alprazolam U OH-Alprazolam GC/MS Benzodiazepines Screen U Benzodiazepines Scrn Urine Clonazepam U 7-Amino Clonazep GC/MS Ur Nordiazepam Ur Nordiazepam GC/MS Flurazepam Flurazepam Confirm Lorazepam Urine Lorazepam Ur Oxazepam U Oxazepam Confm GC/MS Urine Temazepam Ur Temazepam (GC/MS) Urine Triazolam Ur Triazolam (GC/MS) Meperidine (GC/MS) Ur Meperidine Cocaine Screen Cocaine & Metabolite Urine Cocaine Benzoylecgonine Cannabinoids Urine Cannabinoids U Marijuana (THC) Screen Urine Marijuana (THC) Drug Test Comment Alcohol, Quantitative Urine Ethyl Alcohol Anti-A Titer Blood Type Antibody Screen Spec Expiration Date 11/14/16 11/14/16 11/14/16 08:35 08:35 08:35 WBC RBC Hgb Hct MCV MCH MCHC RDW Plt Count MPV Neutrophils % Lymphocytes % Monocytes % Eosinophils % Basophils % Hypochromia Platelet Estimate Anisocytosis Morphology Comment PT with INR INR PTT (Actin FS) VBG pH POC VBG pCO2 POC VBG pO2 Mixed VBG HCO3 Sodium Potassium Chloride Carbon Dioxide Anion Gap BUN Creatinine Creat Clearance w eGFR Random Glucose Specific Parrish Lactic Acid Calcium Phosphorus Magnesium Iron 15 L TIBC 214 L Iron Saturation 7 L Transferrin 188 L Ferritin Cancelled Total Bilirubin Direct Bilirubin AST ALT Alkaline Phosphatase Ammonia Creatine Kinase Creatine Kinase Index CK-MB (CK-2) Troponin I Total Protein Albumin Vitamin B12 Serum Folate Urine Color Urine Appearance Urine pH Ur Specific Parrish Urine Protein Urine Glucose (UA) Urine Ketones Urine Blood Urine Nitrite Urine Bilirubin Urine Urobilinogen Urine RBC Urine WBC Ur Epithelial Cells Urine Mucus Urine Butalbital Ur Butalbital Confirm Opiates Screen Urine Opiates Screen Meperidine Urine Normeperidine U Normeperidine GC/MS Urine Codeine U Codeine Confrm GC/MS Urine Morphine Morphine Confirm GC/MS Urine Hydrocodone Ur Hydrocodone (GC/MS) Oxycodone Urine Oxycodone Ur Oxycodone GC/MS Oxymorphone Confirm U Oxycodone/Oxymorphon Methadone Screen Ur Methadone Ur Methadone Confirm Ur Hydromorphone Ur Hydromorphone (GC/MS) Urine Propoxyphene U Propoxyphene/M GC/MS Barbiturate Screen Ur Barbiturates Screen Urine Barbiturates Phencyclidine Screen Ur Phencyclidine (PCP) Ur PCP Confirm (GC/MS) Amphetamines Amphetamines Grp GC/MS Ur Amphetamines Screen Urine Amphetamine Ur Amphetamines, Quant Methamphetamine Methamphetamine GC/MS MDMA (Ecstasy) Screen Urine Amobarbital Ur Amobarbital GC/MS Urine Pentobarbital U Pentobarbital GC/MS Urine Phenobarbital U Phenobarbital GC/MS Urine Secobarbital U Secobarbital GC/MS Urine Alprazolam U OH-Alprazolam GC/MS Benzodiazepines Screen U Benzodiazepines Scrn Urine Clonazepam U 7-Amino Clonazep GC/MS Ur Nordiazepam Ur Nordiazepam GC/MS Flurazepam Flurazepam Confirm Lorazepam Urine Lorazepam Ur Oxazepam U Oxazepam Confm GC/MS Urine Temazepam Ur Temazepam (GC/MS) Urine Triazolam Ur Triazolam (GC/MS) Meperidine (GC/MS) Ur Meperidine Cocaine Screen Cocaine & Metabolite Urine Cocaine Benzoylecgonine Cannabinoids Urine Cannabinoids U Marijuana (THC) Screen Urine Marijuana (THC) Drug Test Comment Alcohol, Quantitative Urine Ethyl Alcohol Anti-A Titer Blood Type Antibody Screen Spec Expiration Date 11/14/16 11/14/16 11/14/16 17:15 17:15 17:15 WBC 5.5 RBC 3.79 L Hgb 8.6 L D Hct 26.9 L MCV 71.1 L MCH 22.8 L MCHC 32.0 RDW 20.3 H Plt Count 96 L MPV 8.6 Neutrophils % Lymphocytes % Monocytes % Eosinophils % Basophils % Hypochromia Platelet Estimate Anisocytosis Morphology Comment PT with INR INR PTT (Actin FS) VBG pH POC VBG pCO2 POC VBG pO2 Mixed VBG HCO3 Sodium Potassium Chloride Carbon Dioxide Anion Gap BUN Creatinine Creat Clearance w eGFR Random Glucose Specific Parrish Lactic Acid Calcium Phosphorus Magnesium Iron TIBC Iron Saturation Transferrin Ferritin Total Bilirubin 1.5 H Direct Bilirubin 0.9 H D AST 58 H ALT 32 Alkaline Phosphatase 170 H Ammonia 103.72 H Creatine Kinase Creatine Kinase Index CK-MB (CK-2) Troponin I Total Protein 6.4 Albumin 1.8 L Vitamin B12 Serum Folate Urine Color Urine Appearance Urine pH Ur Specific Parrish Urine Protein Urine Glucose (UA) Urine Ketones Urine Blood Urine Nitrite Urine Bilirubin Urine Urobilinogen Urine RBC Urine WBC Ur Epithelial Cells Urine Mucus Urine Butalbital Ur Butalbital Confirm Opiates Screen Urine Opiates Screen Meperidine Urine Normeperidine U Normeperidine GC/MS Urine Codeine U Codeine Confrm GC/MS Urine Morphine Morphine Confirm GC/MS Urine Hydrocodone Ur Hydrocodone (GC/MS) Oxycodone Urine Oxycodone Ur Oxycodone GC/MS Oxymorphone Confirm U Oxycodone/Oxymorphon Methadone Screen Ur Methadone Ur Methadone Confirm Ur Hydromorphone Ur Hydromorphone (GC/MS) Urine Propoxyphene U Propoxyphene/M GC/MS Barbiturate Screen Ur Barbiturates Screen Urine Barbiturates Phencyclidine Screen Ur Phencyclidine (PCP) Ur PCP Confirm (GC/MS) Amphetamines Amphetamines Grp GC/MS Ur Amphetamines Screen Urine Amphetamine Ur Amphetamines, Quant Methamphetamine Methamphetamine GC/MS MDMA (Ecstasy) Screen Urine Amobarbital Ur Amobarbital GC/MS Urine Pentobarbital U Pentobarbital GC/MS Urine Phenobarbital U Phenobarbital GC/MS Urine Secobarbital U Secobarbital GC/MS Urine Alprazolam U OH-Alprazolam GC/MS Benzodiazepines Screen U Benzodiazepines Scrn Urine Clonazepam U 7-Amino Clonazep GC/MS Ur Nordiazepam Ur Nordiazepam GC/MS Flurazepam Flurazepam Confirm Lorazepam Urine Lorazepam Ur Oxazepam U Oxazepam Confm GC/MS Urine Temazepam Ur Temazepam (GC/MS) Urine Triazolam Ur Triazolam (GC/MS) Meperidine (GC/MS) Ur Meperidine Cocaine Screen Cocaine & Metabolite Urine Cocaine Benzoylecgonine Cannabinoids Urine Cannabinoids U Marijuana (THC) Screen Urine Marijuana (THC) Drug Test Comment Alcohol, Quantitative Urine Ethyl Alcohol Anti-A Titer Blood Type Antibody Screen Spec Expiration Date 11/15/16 11/15/16 11/15/16 07:15 07:15 16:10 WBC 6.6 5.6 RBC 3.53 L 3.62 L Hgb 7.9 L 8.2 L Hct 24.9 L 25.7 L MCV 70.5 L 71.1 L MCH 22.3 L 22.6 L MCHC 31.6 L 31.8 L RDW 20.5 H 20.7 H Plt Count 89 L 93 L MPV 8.2 8.3 Neutrophils % Lymphocytes % Monocytes % Eosinophils % Basophils % Hypochromia Platelet Estimate Anisocytosis Morphology Comment PT with INR INR PTT (Actin FS) VBG pH POC VBG pCO2 POC VBG pO2 Mixed VBG HCO3 Sodium 146 H Potassium 3.7 Chloride 114 H Carbon Dioxide 25 Anion Gap 7 L BUN 6 L Creatinine 0.4 L Creat Clearance w eGFR > 60 Random Glucose 79 Specific Parrish Lactic Acid Calcium 7.7 L Phosphorus Magnesium Iron TIBC Iron Saturation Transferrin Ferritin Total Bilirubin 1.6 H Direct Bilirubin AST 45 H D ALT 28 Alkaline Phosphatase 132 H D Ammonia Creatine Kinase Creatine Kinase Index CK-MB (CK-2) Troponin I Total Protein 6.1 L Albumin 1.7 L Vitamin B12 Serum Folate Urine Color Urine Appearance Urine pH Ur Specific Parrish Urine Protein Urine Glucose (UA) Urine Ketones Urine Blood Urine Nitrite Urine Bilirubin Urine Urobilinogen Urine RBC Urine WBC Ur Epithelial Cells Urine Mucus Urine Butalbital Ur Butalbital Confirm Opiates Screen Urine Opiates Screen Meperidine Urine Normeperidine U Normeperidine GC/MS Urine Codeine U Codeine Confrm GC/MS Urine Morphine Morphine Confirm GC/MS Urine Hydrocodone Ur Hydrocodone (GC/MS) Oxycodone Urine Oxycodone Ur Oxycodone GC/MS Oxymorphone Confirm U Oxycodone/Oxymorphon Methadone Screen Ur Methadone Ur Methadone Confirm Ur Hydromorphone Ur Hydromorphone (GC/MS) Urine Propoxyphene U Propoxyphene/M GC/MS Barbiturate Screen Ur Barbiturates Screen Urine Barbiturates Phencyclidine Screen Ur Phencyclidine (PCP) Ur PCP Confirm (GC/MS) Amphetamines Amphetamines Grp GC/MS Ur Amphetamines Screen Urine Amphetamine Ur Amphetamines, Quant Methamphetamine Methamphetamine GC/MS MDMA (Ecstasy) Screen Urine Amobarbital Ur Amobarbital GC/MS Urine Pentobarbital U Pentobarbital GC/MS Urine Phenobarbital U Phenobarbital GC/MS Urine Secobarbital U Secobarbital GC/MS Urine Alprazolam U OH-Alprazolam GC/MS Benzodiazepines Screen U Benzodiazepines Scrn Urine Clonazepam U 7-Amino Clonazep GC/MS Ur Nordiazepam Ur Nordiazepam GC/MS Flurazepam Flurazepam Confirm Lorazepam Urine Lorazepam Ur Oxazepam U Oxazepam Confm GC/MS Urine Temazepam Ur Temazepam (GC/MS) Urine Triazolam Ur Triazolam (GC/MS) Meperidine (GC/MS) Ur Meperidine Cocaine Screen Cocaine & Metabolite Urine Cocaine Benzoylecgonine Cannabinoids Urine Cannabinoids U Marijuana (THC) Screen Urine Marijuana (THC) Drug Test Comment Alcohol, Quantitative Urine Ethyl Alcohol Anti-A Titer Blood Type Antibody Screen Spec Expiration Date 11/15/16 16:10 WBC RBC Hgb Hct MCV MCH MCHC RDW Plt Count MPV Neutrophils % Lymphocytes % Monocytes % Eosinophils % Basophils % Hypochromia Platelet Estimate Anisocytosis Morphology Comment PT with INR INR PTT (Actin FS) VBG pH POC VBG pCO2 POC VBG pO2 Mixed VBG HCO3 Sodium Potassium Chloride Carbon Dioxide Anion Gap BUN Creatinine Creat Clearance w eGFR Random Glucose Specific [place] Lactic Acid Calcium Phosphorus Magnesium Iron TIBC Iron Saturation Transferrin Ferritin 17.514 Total Bilirubin Direct Bilirubin AST ALT Alkaline Phosphatase Ammonia Creatine Kinase Creatine Kinase Index CK-MB (CK-2) Troponin I Total Protein Albumin Vitamin B12 Serum Folate Urine Color Urine Appearance Urine pH Ur Specific [place] Urine Protein Urine Glucose (UA) Urine Ketones Urine Blood Urine Nitrite Urine Bilirubin Urine Urobilinogen Urine RBC Urine WBC Ur Epithelial Cells Urine Mucus Urine Butalbital Ur Butalbital Confirm Opiates Screen Urine Opiates Screen Meperidine Urine Normeperidine U Normeperidine GC/MS Urine Codeine U Codeine Confrm GC/MS Urine Morphine Morphine Confirm GC/MS Urine Hydrocodone Ur Hydrocodone (GC/MS) Oxycodone Urine Oxycodone Ur Oxycodone GC/MS Oxymorphone Confirm U Oxycodone/Oxymorphon Methadone Screen Ur Methadone Ur Methadone Confirm Ur Hydromorphone Ur Hydromorphone (GC/MS) Urine Propoxyphene U Propoxyphene/M GC/MS Barbiturate Screen Ur Barbiturates Screen Urine Barbiturates Phencyclidine Screen Ur Phencyclidine (PCP) Ur PCP Confirm (GC/MS) Amphetamines Amphetamines Grp GC/MS Ur Amphetamines Screen Urine Amphetamine Ur Amphetamines, Quant Methamphetamine Methamphetamine GC/MS MDMA (Ecstasy) Screen Urine Amobarbital Ur Amobarbital GC/MS Urine Pentobarbital U Pentobarbital GC/MS Urine Phenobarbital U Phenobarbital GC/MS Urine Secobarbital U Secobarbital GC/MS Urine Alprazolam U OH-Alprazolam GC/MS Benzodiazepines Screen U Benzodiazepines Scrn Urine Clonazepam U 7-Amino Clonazep GC/MS Ur Nordiazepam Ur Nordiazepam GC/MS Flurazepam Flurazepam Confirm Lorazepam Urine Lorazepam Ur Oxazepam U Oxazepam Confm GC/MS Urine Temazepam Ur Temazepam (GC/MS) Urine Triazolam Ur Triazolam (GC/MS) Meperidine (GC/MS) Ur Meperidine Cocaine Screen Cocaine & Metabolite Urine Cocaine Benzoylecgonine Cannabinoids Urine Cannabinoids U Marijuana (THC) Screen Urine Marijuana (THC) Drug Test Comment Alcohol, Quantitative Urine Ethyl Alcohol Anti-A Titer Blood Type Antibody Screen Spec Expiration Date 11/16/16 17:03 patient alert and oriented x3, condition uch imporved, severe irondeficiency anemia and liver disease alb low, ammonia high Assessment: 11/16/16 17:02 mild withdrawal sx, on methadone 10mg bid for pain with oxycodone 5mg prn for BTP, symptoms may be from alcohol withdrawal, considering the severity of his medical comorbidities would give ativan 2mg po qHS for sleep and prn Plan: ativan prn for anxiety/tremors and qHS will give one dose now. When medically stable suggest transfer to [facility] inpatient detox for detox from pain meds and rehab if he is able to participate
[2016-11-16] MEDS ORDERED: LORazepam 1 MG TABLET PO ONE (17:30)
--- NOTE | 2016-11-16 19:03 | PN ---
Teaching Attending Note Name of Resident: Shanita Ying ATTENDING PHYSICIAN STATEMENT I saw and evaluated the patient. I reviewed the resident's note and discussed the case with the resident. I agree with the resident's findings and plan as documented. SUBJECTIVE: no fever or chills . Has no abd pain. denies any CP or SOB OBJECTIVE: NAD , awake , alert, knows location , age, year, and condition . MMM CV: RRR, 3/6 DM in LUSB. Lungs : CTAB ext: trace edema on L leg. R leg with ulcers, slough , drainage , and foul smell . DP 2+ b/l Abd: soft, distended , decreased BS ,shifting dullness, no TTP , no hepatosplenomegaly. ASSESSMENT AND PLAN: 46 y/o man with h/o alcohol abuse, multisubstance abuse, cirrhosis, HCV, SBO s/ p Bowel resection , who presented with AMS. He was found to have acute encephalopathy 1- AMS: could be due to hepatic encephalopathy , with component of metabolic encephalopathy and alcohol intoxication now back to base line - cont lactulose, make standing and increase to QID - montior and treat fro withdrawal - cont methadone and oxy for possible opioid withdrawal - cont rifaximine 2- Ascitis : SBP is unlikely with no abd tenderness/ pain, leukocytosis or fever . - will order US. - pt declines any TAP. - case was d/w ID , who agrees is unlikely - willget KUB due to the hypoactive BS, and no BM even with lactulose ( r/o ileus or SBP ) 3- RLE cellulitis with infected ulcers: - cont unasyn - chemical debridment 4- Thrombocytopeia: likely due to liver dz 5- Cirrhosis : cont lasix and spironolactone , rifaximine and lactulose 6- POlysubstance abuse : - ativan PRN and HS for withdrawal sx - methadone and oxy for opioid dependence and possible withdrawal - need detox and rehab when ready 7- Microcytic anemia : iron def on labs. - cont iron supp - willneed colonoscopy as outpt DVT PX : hold heparin due to thrombocytopenia SCD on L
[2016-11-17] MEDS: METHADONE HCL 10 MG TABLET PO SCH ×3 (00:33→14:00)
[2016-11-17] MEDS ORDERED: PT OWN MED DRAWER 7, Y5N ONE ×3 (01:12→18:35)
[2016-11-17] MEDS: AMPICILLIN NA/SULBACTAM NA 3 GM in SODIUM CHLORIDE 100 ML IVPB SCH ×3 (01:16→18:39)
[2016-11-17 08:33] LABS: MCH 22.4 pg (25.7-33.7); MCHC 31.6 g/dl (32.0-35.9); MEAN CELL VOLUME 70.8 fl (80-96); MEAN PLT VOLUME 8.2 fl (7.5-11.1); PLATELET COUNT 93 K/MM3 (134-434); RDW 20.8 % (11.9-15.9); WHITE BLOOD COUNT 5.7 K/mm3 (4.0-10.0)
[2016-11-17 09:05] LABS: ALBUMIN 1.6 g/dl (3.4-5.0); ALK PHOS 140 U/L (45-117); ANION GAP 7 (8-16); BILIRUBIN,TOTAL 0.9 mg/dL (0.2-1.0); CALCIUM 7.4 mg/dL (8.5-10.1); CO2 24 mmol/L (21-32); CREATININE 0.4 mg/dL (0.7-1.3); GLUCOSE,RANDOM 110 mg/dL (74-106); SGOT/AST 35 U/L (15-37); SGPT/ALT 24 U/L (12-78); TOT PROT 5.9 g/dl (6.4-8.2)
--- NOTE | 2016-11-17 09:06 | PN ---
S Progress Note (SOAP) Subjective: patient is c/o pain le after dressing change, abdo pain Objective: 11/17/16 16:54 Vital Signs - 8 hr 11/17/16 11/17/16 09:00 14:00 Temperature 99.0 F 98.5 F Pulse Rate 94 H 88 Respiratory 20 20 Rate Blood Pressure 113/61 129/86 Laboratory Last Values WBC 5.7 K/mm3 (4.0-10.0) 11/17/16 07:50 RBC 3.65 M/mm3 (4.00-5.60) L 11/17/16 07:50 Hgb 8.2 GM/dL (11.7-16.9) L 11/17/16 07:50 Hct 25.8 % (35.4-49) L 11/17/16 07:50 MCV 70.8 fl (80-96) L 11/17/16 07:50 MCH 22.4 pg (25.7-33.7) L 11/17/16 07:50 MCHC 31.6 g/dl (32.0-35.9) L 11/17/16 07:50 RDW 20.8 % (11.9-15.9) H 11/17/16 07:50 Plt Count 93 K/MM3 (134-434) L 11/17/16 07:50 MPV 8.2 fl (7.5-11.1) 11/17/16 07:50 Neutrophils % 62.4 % (42.8-82.8) 11/14/16 01:22 Lymphocytes % 19.3 % (8-40) 11/14/16 01:22 Monocytes % 12.8 % (3.8-10.2) H 11/14/16 01:22 Eosinophils % 4.8 % (0-4.5) H 11/14/16 01:22 Basophils % 0.7 % (0-2.0) 11/14/16 01:22 Hypochromia 1+ 11/14/16 01:22 Platelet Estimate Adequate (NORMAL) 11/14/16 01:22 Anisocytosis 2+ 11/14/16 01:22 Morphology Comment 11/14/16 01:22 PT with INR 19.50 SEC (9.98-11.88) H 11/14/16 08:35 INR 1.75 (0.82-1.09) H 11/14/16 08:35 PTT (Actin FS) 35.6 SECONDS (26.9-34.4) H 11/14/16 08:35 VBG pH 7.45 (7.32-7.42) H 11/14/16 04:00 POC VBG pCO2 37.9 mmHg (38-52) L 11/14/16 04:00 POC VBG pO2 80.0 mmHg (28-48) H 11/14/16 04:00 Mixed VBG HCO3 25.9 meq/L (19-25) H 11/14/16 04:00 Sodium 142 mmol/L (136-145) 11/17/16 07:50 Potassium 3.6 mmol/L (3.5-5.1) 11/17/16 07:50 Chloride 111 mmol/L (98-107) H 11/17/16 07:50 Carbon Dioxide 24 mmol/L (21-32) 11/17/16 07:50 Anion Gap 7 (8-16) L 11/17/16 07:50 BUN 9 mg/dL (7-18) D 11/17/16 07:50 Creatinine 0.4 mg/dL (0.7-1.3) L 11/17/16 07:50 Creat Clearance w eGFR > 60 (>60) 11/17/16 07:50 Random Glucose 110 mg/dL (74-106) H D 11/17/16 07:50 Specific [place] Cancelled 11/14/16 02:00 Lactic Acid 1.7 mmol/L (0.4-2.0) 11/14/16 04:25 Calcium 7.4 mg/dL (8.5-10.1) L 11/17/16 07:50 Phosphorus 3.1 mg/dL (2.5-4.9) D 11/14/16 08:35 Magnesium 1.9 mg/dL (1.8-2.4) 11/14/16 08:35 Iron 15 ug/dL (38-169) L 11/14/16 08:35 TIBC 214 ug/dL (250-450) L 11/14/16 08:35 Iron Saturation 7 % (15-55) L 11/14/16 08:35 Transferrin 188 mg/dL (200-370) L 11/14/16 08:35 Ferritin 17.514 ng/ml (16.4-293.9) 11/15/16 16:10 Total Bilirubin 0.9 mg/dL (0.2-1.0) D 11/17/16 07:50 Direct Bilirubin 0.9 mg/dL (0.0-0.2) H D 11/14/16 17:15 AST 35 U/L (15-37) D 11/17/16 07:50 ALT 24 U/L (12-78) 11/17/16 07:50 Alkaline Phosphatase 140 U/L (45-117) H 11/17/16 07:50 Ammonia 103.72 umol/L (11-32) H 11/14/16 17:15 Creatine Kinase 298 IU/L (39-308) 11/14/16 02:23 Creatine Kinase Index 0.7 % (0.0-5.0) 11/14/16 02:23 CK-MB (CK-2) 2.140 ng/mL (0.5-3.6) 11/14/16 02:23 Troponin I < 0.02 ng/ml (0.00-0.05) 11/14/16 02:23 Total Protein 5.9 g/dl (6.4-8.2) L 11/17/16 07:50 Albumin 1.6 g/dl (3.4-5.0) L 11/17/16 07:50 Vitamin B12 1016 pg/ml (180-914) H D 11/14/16 08:35 Serum Folate 18 ng/ml (3.1-17.5) H 11/14/16 08:35 Urine Color Yellow 11/14/16 02:00 Urine Appearance Slcloudy 11/14/16 02:00 Urine pH 5.0 (5.0-8.0) D 11/14/16 02:00 Ur Specific [place] 1.020 (1.005-1.025) 11/14/16 02:00 Urine Protein 1+ (NEGATIVE) H 11/14/16 02:00 Urine Glucose (UA) Negative (NEGATIVE) 11/14/16 02:00 Urine Ketones Negative (NEGATIVE) 11/14/16 02:00 Urine Blood Negative (NEGATIVE) 11/14/16 02:00 Urine Nitrite Negative (NEGATIVE) 11/14/16 02:00 Urine Bilirubin 2.0 (NEGATIVE) 11/14/16 02:00 Urine Urobilinogen 4.0 e.u/dl mg/dL (0.2-1.0) 11/14/16 02:00 Urine RBC 2 /hpf (0-3) 11/14/16 02:00 Urine WBC 3 /hpf (3-5) 11/14/16 02:00 Ur Epithelial Cells Rare /hpf (FEW) 11/14/16 02:00 Urine Mucus Many 11/14/16 02:00 Urine Butalbital Cancelled 11/14/16 02:00 Ur Butalbital Confirm Cancelled 11/14/16 02:00 Opiates Screen Positive ng/ml ([id number]) 11/14/16 02:45 Urine Opiates Screen Cancelled 11/14/16 02:00 Meperidine Cancelled 11/14/16 02:00 Urine Normeperidine Cancelled 11/14/16 02:00 U Normeperidine GC/MS Cancelled 11/14/16 02:00 Urine Codeine Cancelled 11/14/16 02:00 U Codeine Confrm GC/MS Cancelled 11/14/16 02:00 Urine Morphine Cancelled 11/14/16 02:00 Morphine Confirm GC/MS Cancelled 11/14/16 02:00 Urine Hydrocodone Cancelled 11/14/16 02:00 Ur Hydrocodone (GC/MS) Cancelled 11/14/16 02:00 Oxycodone Cancelled 11/14/16 02:00 Urine Oxycodone Cancelled 11/14/16 02:00 Ur Oxycodone GC/MS Cancelled 11/14/16 02:00 Oxymorphone Confirm Cancelled 11/14/16 02:00 U Oxycodone/Oxymorphon Cancelled 11/14/16 02:00 Methadone Screen Negative ng/ml ([id number]) 11/14/16 02:45 Ur Methadone Cancelled 11/14/16 02:00 Ur Methadone Confirm Cancelled 11/14/16 02:00 Ur Hydromorphone Cancelled 11/14/16 02:00 Ur Hydromorphone (GC/MS) Cancelled 11/14/16 02:00 Urine Propoxyphene Cancelled 11/14/16 02:00 U Propoxyphene/M GC/MS Cancelled 11/14/16 02:00 Barbiturate Screen Negative ng/ml (BNVORO=895) 11/14/16 02:45 Ur Barbiturates Screen Cancelled 11/14/16 02:00 Urine Barbiturates Cancelled 11/14/16 02:00 Phencyclidine Screen Negative ng/ml (CUTOFF=25) 11/14/16 02:45 Ur Phencyclidine (PCP) Cancelled 11/14/16 02:00 Ur PCP Confirm (GC/MS) Cancelled 11/14/16 02:00 Amphetamines Cancelled 11/14/16 02:00 Amphetamines Grp GC/MS Cancelled 11/14/16 02:00 Ur Amphetamines Screen Negative ng/ml ([id number]=812) 11/14/16 02:45 Urine Amphetamine Cancelled 11/14/16 02:00 Ur Amphetamines, Quant Cancelled 11/14/16 02:00 Methamphetamine Cancelled 11/14/16 02:00 Methamphetamine GC/MS Cancelled 11/14/16 02:00 MDMA (Ecstasy) Screen Negative ng/ml ([id number]) 11/14/16 02:45 Urine Amobarbital Cancelled 11/14/16 02:00 Ur Amobarbital GC/MS Cancelled 11/14/16 02:00 Urine Pentobarbital Cancelled 11/14/16 02:00 U Pentobarbital GC/MS Cancelled 11/14/16 02:00 Urine Phenobarbital Cancelled 11/14/16 02:00 U Phenobarbital GC/MS Cancelled 11/14/16 02:00 Urine Secobarbital Cancelled 11/14/16 02:00 U Secobarbital GC/MS Cancelled 11/14/16 02:00 Urine Alprazolam Cancelled 11/14/16 02:00 U OH-Alprazolam GC/MS Cancelled 11/14/16 02:00 Benzodiazepines Screen Positive ng/ml ([id number]=493) 11/14/16 02:45 U Benzodiazepines Scrn Cancelled 11/14/16 02:00 Urine Clonazepam Cancelled 11/14/16 02:00 U 7-Amino Clonazep GC/MS Cancelled 11/14/16 02:00 Ur Nordiazepam Cancelled 11/14/16 02:00 Ur Nordiazepam GC/MS Cancelled 11/14/16 02:00 Flurazepam Cancelled 11/14/16 02:00 Flurazepam Confirm Cancelled 11/14/16 02:00 Lorazepam Cancelled 11/14/16 02:00 Urine Lorazepam Cancelled 11/14/16 02:00 Ur Oxazepam Cancelled 11/14/16 02:00 U Oxazepam Confm GC/MS Cancelled 11/14/16 02:00 Urine Temazepam Cancelled 11/14/16 02:00 Ur Temazepam (GC/MS) Cancelled 11/14/16 02:00 Urine Triazolam Cancelled 11/14/16 02:00 Ur Triazolam (GC/MS) Cancelled 11/14/16 02:00 Meperidine (GC/MS) Cancelled 11/14/16 02:00 Ur Meperidine Cancelled 11/14/16 02:00 Cocaine Screen Positive ng/ml (SVIUQN=745) 11/14/16 02:45 Cocaine & Metabolite Cancelled 11/14/16 02:00 Urine Cocaine Cancelled 11/14/16 02:00 Benzoylecgonine Cancelled 11/14/16 02:00 Cannabinoids Cancelled 11/14/16 02:00 Urine Cannabinoids Cancelled 11/14/16 02:00 U Marijuana (THC) Screen Negative ng/ml (CUTOFF=50) 11/14/16 02:45 Urine Marijuana (THC) Cancelled 11/14/16 02:00 Drug Test Comment Cancelled 11/14/16 02:00 Alcohol, Quantitative 102.2 mg/dl (0-5) H* 11/14/16 02:23 Urine Ethyl Alcohol Cancelled 11/14/16 02:00 Anti-A Titer Cancelled 11/14/16 01:22 Blood Type B NEGATIVE 11/14/16 02:23 Antibody Screen Negative 11/14/16 02:23 Spec Expiration Date Cancelled 11/14/16 01:22 Assessment: 11/17/16 16:55 withdrawal sx with chronic lower extremity pain Plan: Opioid dependence with withdrawal sx - primary team is ruling out SBO, if medically stable would detox with methadone : day 1 15mg day 2 10mg day 3 5 mg can continue oxycodone prn for pain, rapid taper possible because of use of methadone 10mg bid for pain would d/c prior to d/c and increase neurontin tid for pain, consider NSAIDS if not medically contraindicated. Alcohol dependence - no need for inpatietn detox at this time, prn symptom triggered po ativan for anxiety and sleep
[2016-11-17] MEDS: LACTULOSE 20 GM/30 ML UDC (FOR ORAL USE ONLY) PO SCH ×4 (09:24→22:40)
[2016-11-17] MEDS: THIAMINE HCL 100 MG TABLET (FP) PO SCH (09:27)
[2016-11-17] MEDS: oxyCODONE HCL 5 MG TABLET PO PRN ×2 (09:27→18:51)
[2016-11-17] MEDS: FUROSEMIDE 20 MG TABLET (FP) PO SCH (09:27)
[2016-11-17] MEDS: ASCORBIC ACID 500 MG TABLET (FP) PO SCH (09:27)
[2016-11-17] MEDS: SPIRONOLACTONE 25 MG TABLET (FP) PO SCH (09:27)
[2016-11-17] MEDS: PANTOPRAZOLE 40 MG TABLET (FP) PO SCH (09:28)
[2016-11-17] MEDS: FOLIC ACID 1 MG TABLET (FP) PO SCH (09:28)
[2016-11-17] MEDS: COLLAGENASE CLOSTRIDIUM HIST. 30 GRAMS TUBE TP SCH (09:28)
[2016-11-17] MEDS: RIFAXIMIN 550 MG TABLET (UD) PO SCH ×2 (09:28→22:39)
[2016-11-17] MEDS: FERROUS SO4 325 MG TABLET (FP) PO SCH (09:28)
--- NOTE | 2016-11-17 13:04 | PN ---
Teaching Attending Note Name of Resident: Shanita Ying ATTENDING PHYSICIAN STATEMENT I saw and evaluated the patient. I reviewed the resident's note and discussed the case with the resident. I agree with the resident's findings and plan as documented. SUBJECTIVE: No fever or chills. has pain in R LE . denies abd pain or N/V. OBJECTIVE: NAD , awake , less alert than yesterday but still knows location , age, year, and condition . MMM CV: RRR, 3/6 DM in LUSB. Lungs : CTAB ext: trace edema on L leg. R leg with ulcers, No slough today,has granulation, bleeding tissue . DP 2+ b/l Abd: soft, distended , decreased BS ,shifting dullness, no TTP , no hepatosplenomegaly. ASSESSMENT AND PLAN: 46 y/o man with h/o alcohol abuse, multisubstance abuse, cirrhosis, HCV, SBO s/ p Bowel resection , who presented with AMS. He was found to have acute encephalopathy 1- AMS: could be due to hepatic encephalopathy , with component of metabolic encephalopathy and alcohol intoxication now back to base line - cont lactulose QID . will obtain CT scan of Abd . If no obstruction will give lactulose enema as he is not getting the oral as ordered and today is less alert - montior and treat for withdrawal - cont methadone - cont Rifaximin 2- Ascitis: SBP is unlikely with no abd tenderness/ pain, leukocytosis or fever . - US with mod amount ascitis - KUB with possible SBO. Will obtain CT scan to R/O . give Po contrast, avoid IV as the risk of renal injury is high in this cirrhotic patient - pt cont to decline any paracentesis 3- RLE cellulitis with infected ulcers: improved - cont unasyn - chemical debridment 4- Thrombocytopeia: likely due to liver dz 5- Cirrhosis : cont lasix and spironolactone , rifaximine and lactulose 6- Polysubstance abuse : - Ativan PRN and HS for withdrawal sx - Agree with methadone detox. Will d/w Dr. Medina - Need detox and rehab when ready 7- Microcytic anemia: iron def on labs. - cont iron supp - will need colonoscopy as outpt DVT PX : hold heparin due to thrombocytopenia SCD on L ordered .
[2016-11-17] MEDS: GABAPENTIN 100 MG CAPSULE (FP) PO SCH ×2 (14:16→22:39)
--- NOTE | 2016-11-17 14:20 | PN ---
Progress Note, Physician History of Present Illness: does not have much to say wound dressing changed pain - Current Medication List Current Medications: Active Medications Ascorbic Acid (Vitamin C -) 500 mg PO DAILY [facility] Last Admin: 11/17/16 09:27 Dose: 500 mg Collagenase (Santyl -) 1 applic TP DAILY [facility] Last Admin: 11/17/16 09:28 Dose: 1 applic Ferrous Sulfate (Feosol -) 325 mg PO DAILY [facility] Last Admin: 11/17/16 09:28 Dose: 325 mg Folic Acid (Folic Acid -) 1 mg PO DAILY [facility] Last Admin: 11/17/16 09:28 Dose: 1 mg Furosemide (Lasix -) 20 mg PO DAILY [facility] Last Admin: 11/17/16 09:27 Dose: 20 mg Gabapentin (Neurontin -) 100 mg PO TID [facility] Ampicillin Sodium/Sulbactam (Sodium 3 gm/ Sodium Chloride) 100 mls @ 200 mls/ hr IVPB Q8H-IV [facility] Last Admin: 11/17/16 09:24 Dose: 200 mls/hr Lactulose (Cephulac (Oral Use)) 30 gm PO QID [facility] Last Admin: 11/17/16 09:24 Dose: 30 gm Lorazepam (Ativan -) 2 mg PO HS PRN PRN Reason: ANXIETY Lorazepam (Ativan -) 0.5 mg PO Q8H PRN PRN Reason: ANXIETY Methadone HCl (Dolophine -) 10 mg PO Q12H [facility] Last Admin: 11/17/16 13:05 Dose: 10 mg Oxycodone HCl (Roxicodone -) 5 mg PO Q6H PRN PRN Reason: PAIN Last Admin: 11/17/16 09:27 Dose: 5 mg Pantoprazole Sodium (Protonix -) 40 mg PO DAILY [facility] Last Admin: 11/17/16 09:28 Dose: 40 mg Rifaximin (Xifaxan -) 550 mg PO BID [facility] Last Admin: 11/17/16 09:28 Dose: 550 mg Spironolactone (Aldactone -) 50 mg PO DAILY [facility] Last Admin: 11/17/16:27 Dose: 50 mg Thiamine HCl (Vitamin B1 -) 100 mg PO DAILY [facility] Last Admin: 11/17/16 09:27 Dose: 100 mg - Objective Vital Signs: Vital Signs Temperature 99.0 F 11/17/16 09:00 Pulse Rate 94 H 11/17/16 09:00 Respiratory Rate 20 11/17/16 09:00 Blood Pressure 113/61 11/17/16 09:00 O2 Sat by Pulse Oximetry (%) 95 11/15/16 20:14 Constitutional: Yes: Calm, Mild Distress Cardiovascular: Yes: Regular Rate and Rhythm Respiratory: Yes: Regular, CTA Bilaterally Gastrointestinal: Yes: Normal Bowel Sounds, Soft Musculoskeletal: Yes: Other Extremities: Yes: Other Wound/Incision: Yes: Dressing Dry and Intact Neurological: Yes: Alert Psychiatric: Yes: Alert Labs: CBC, BMP 11/17/16 07:50 11/17/16 07:50 INR, PTT INR 1.75 (0.82-1.09) H 11/14/16 08:35 Assessment/Plan Intoxication #Cellulitis #Hepatic encephalopathy/Cirrhosis #Hypokalemia #Lactic Acidosis plan patient going to be worked up for ascites patient to continue abx rest as per primary
--- NOTE | 2016-11-17 20:42 | PN ---
Physical Exam: SUBJECTIVE: Patient seen and examined. Says he feels the same as yesterday except for a headache. Denies fevers, chills, abdominal pain and chest pain. No acute events overnight. OBJECTIVE: Vital Signs Period Temp Pulse Resp BP Sys/Choi Pulse Ox Last 24 Hr 98.5 F-99.8 F 88-94 20-22 113-129/61-86 GENERAL: somnolent, lethargic, oriented x 3 HEAD: Normal with no signs of trauma. EYES: 1mm pupils, minimally reactive ENT: oropharynx clear without exudates, moist mucous membranes. NECK: supple. LUNGS: Breath sounds equal, clear to auscultation bilaterally, no wheezes, no crackles, no accessory muscle use. HEART: Regular rate and rhythm, S1, S2 with 4/6 crescendo-decrescendo murmur ABDOMEN: Distended, Ascites, normoactive bowel sounds, nontender EXTREMITIES: Dp pulses 2+, RLE ulceration, granulation, bleeding tissue. SKIN: Warm, dry, normal turgor, no rashes or lesions noted Laboratory Results - last 24 hr 11/17/16 11/17/16 11/17/16 07:50 07:50 17:00 WBC 5.7 RBC 3.65 L Hgb 8.2 L Hct 25.8 L MCV 70.8 L MCH 22.4 L MCHC 31.6 L RDW 20.8 H Plt Count 93 L MPV 8.2 Sodium 142 Potassium 3.6 Chloride 111 H Carbon Dioxide 24 Anion Gap 7 L BUN 9 D Creatinine 0.4 L Creat Clearance w eGFR > 60 Random Glucose 110 H D Lactic Acid Calcium 7.4 L Total Bilirubin 0.9 D AST 35 D ALT 24 Alkaline Phosphatase 140 H Ammonia 117.98 H Total Protein 5.9 L Albumin 1.6 L 11/17/16 17:00 WBC RBC Hgb Hct MCV MCH MCHC RDW Plt Count MPV Sodium Potassium Chloride Carbon Dioxide Anion Gap BUN Creatinine Creat Clearance w eGFR Random Glucose Lactic Acid 1.3 Calcium Total Bilirubin AST ALT Alkaline Phosphatase Ammonia Total Protein Albumin Active Medications Generic Name Dose Route Start Last Admin Trade Name Freq PRN Reason Stop Dose Admin Ascorbic Acid 500 mg 11/14/16 10:00 11/17/16 09:27 Vitamin C - PO 500 mg DAILY [facility] Administration Collagenase 1 applic 11/14/16 19:45 11/17/16 09:28 Santyl - TP 1 applic DAILY [facility] Administration Ferrous Sulfate 325 mg 11/16/16 13:30 11/17/16 09:28 Feosol - PO 325 mg DAILY [facility] Administration Folic Acid 1 mg 11/14/16 10:00 11/17/16 09:28 Folic Acid - PO 1 mg DAILY [facility] Administration Furosemide 20 mg 11/14/16 17:45 11/17/16 09:27 Lasix - PO 20 mg DAILY [facility] Administration Gabapentin 100 mg 11/17/16 14:00 11/17/16 14:16 Neurontin - PO 100 mg TID [facility] Administration Ampicillin Sodium/Sulbactam 100 mls @ 200 mls/hr 11/14/16 14:00 11/17/16 18:39 Sodium 3 gm/ Sodium Chloride IVPB 200 mls/hr Q8H-IV [facility] Administration Lactulose 30 gm 11/16/16 22:00 11/17/16 18:39 Cephulac (Oral Use) PO 30 gm QID [facility] Administration Lorazepam 2 mg 11/15/16 13:34 Ativan - PO HS PRN ANXIETY Lorazepam 0.5 mg 11/16/16 17:05 Ativan - PO Q8H PRN ANXIETY Methadone HCl 10 mg 11/17/16 14:30 11/17/16 14:00 Dolophine - PO Not Given Q12H [facility] Oxycodone HCl 5 mg 11/16/16 16:40 11/17/16 18:51 Roxicodone - PO 5 mg Q6H PRN Administration PAIN Pantoprazole Sodium 40 mg 11/14/16 10:00 11/17/16 09:28 Protonix - PO 40 mg DAILY [facility] Administration Rifaximin 550 mg 11/15/16 10:00 11/17/16 09:28 Xifaxan - PO 550 mg BID [facility] Administration Spironolactone 50 mg 11/14/16 17:45 11/17/16 09:27 Aldactone - PO 50 mg DAILY [facility] Administration Thiamine HCl 100 mg 11/14/16 10:00 11/17/16 09:27 Vitamin B1 - PO 100 mg DAILY [facility] Administration ASSESSMENT/PLAN: #Acute toxic encephalopathy - Hyperammonemia vs Severe Sepsis due to RLE cellulitis -improved mental status, likely at baseline -distended abdomen (worse than yesterday), ascites -Abdominal xray revealed distended small bowel loops in right abdomen, which could represent a focal ileus but cannot rule out SBO. -CT abdo ordered, will FU -continue Lactulose 30mg q6 - continue rifaximin 550 PO BID -LFT's trending down -Continue Unasyn (day 4) -Duplex negative #Ascitis: -Unlikely SBP -Liver U/s with moderate ascitis -Will FU abdominal CT scan w/ oral contrast #RLE cellulitis - last wbc 5.6 -improved -multiple previous admissions for same problem -chronic, non-compliant -debridement not recommended as per Vascular -Continue santyl/xeroform, telfa with gauze and kerlix daily - ID on board -continue Unasyn (day 4) #Polysubstance abuse -held librium- will monitor withdrawal symptoms -Ativan 2mg PO daily -Will start methadone detox -utox + for opiates, BZD, cocaine -thiamine -folate -FU detox specialist- recommends PRN short acting ativan for withdrawal and methadone -will go to [facility] for detox and rehab once medically optimized -will monitor for worsening signs of withdrawal -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 HCV -ascites -low concern for SBP #Thrombocytopenia -likely from cirrhosis -baseline 80-90 -will monitor #Microcytic anemia -no signs of bleeding -iron deficiency -monitor H&H -treat if hemoglobin <7 -cont iron supplements #Hypokalemia -resolved #FEN -Not on any fluids -WNL -Sodium controlled diet #DVT PPX -held (thrombocytopenia) Visit type - Emergency Visit Emergency Visit: Yes ED Registration Date: 11/14/16 Care time: The patient presented to the Emergency Department on the above date and was hospitalized for further evaluation of their emergent condition. - New Patient This patient is new to me today: No - Critical Care Critical Care patient: No
[2016-11-17] MEDS ORDERED: LACTULOSE 20 GM/30 ML UDC (FOR RECTAL USE ONLY) PR ONE (23:15)
[2016-11-18] MEDS: AMPICILLIN NA/SULBACTAM NA 3 GM in SODIUM CHLORIDE 100 ML IVPB SCH ×3 (01:29→17:56)
[2016-11-18] MEDS: METHADONE HCL 10 MG TABLET PO SCH (02:01)
[2016-11-18] MEDS: GABAPENTIN 100 MG CAPSULE (FP) PO SCH ×3 (06:05→21:44)
[2016-11-18 07:55] LABS: PLATELET COUNT 86 K/MM3 (134-434); RDW 20.7 % (11.9-15.9); WHITE BLOOD COUNT 5.7 K/mm3 (4.0-10.0)
[2016-11-18 08:33] LABS: ALBUMIN 1.6 g/dl (3.4-5.0); ALK PHOS 116 U/L (45-117); ANION GAP 7 (8-16); BILIRUBIN,TOTAL 1.3 mg/dL (0.2-1.0); CALCIUM 7.6 mg/dL (8.5-10.1); CO2 25 mmol/L (21-32); CREATININE 0.4 mg/dL (0.7-1.3); GLUCOSE,RANDOM 71 mg/dL (74-106); MAGNESIUM 1.8 mg/dL (1.8-2.4); PHOSPHOROUS 3.4 mg/dL (2.5-4.9); SGOT/AST 34 U/L (15-37); SGPT/ALT 24 U/L (12-78); TOT PROT 6.2 g/dl (6.4-8.2)
[2016-11-18] MEDS ORDERED: PT OWN MED DRAWER 7, Y5N ONE ×2 (10:26→17:55)
[2016-11-18] MEDS: FOLIC ACID 1 MG TABLET (FP) PO SCH (10:30)
[2016-11-18] MEDS: RIFAXIMIN 550 MG TABLET (UD) PO SCH ×2 (10:30→21:44)
[2016-11-18] MEDS: THIAMINE HCL 100 MG TABLET (FP) PO SCH (10:31)
[2016-11-18] MEDS: PANTOPRAZOLE 40 MG TABLET (FP) PO SCH (10:31)
[2016-11-18] MEDS: FERROUS SO4 325 MG TABLET (FP) PO SCH (10:31)
[2016-11-18] MEDS: FUROSEMIDE 20 MG TABLET (FP) PO SCH (10:31)
[2016-11-18] MEDS: SPIRONOLACTONE 25 MG TABLET (FP) PO SCH (10:31)
[2016-11-18] MEDS: ASCORBIC ACID 500 MG TABLET (FP) PO SCH (10:31)
[2016-11-18] MEDS: LACTULOSE 20 GM/30 ML UDC (FOR ORAL USE ONLY) PO SCH ×4 (10:32→21:47)
[2016-11-18] MEDS: oxyCODONE HCL 5 MG TABLET PO PRN ×2 (10:32→21:48)
[2016-11-18] MEDS: COLLAGENASE CLOSTRIDIUM HIST. 30 GRAMS TUBE TP SCH (10:33)
--- NOTE | 2016-11-18 11:44 | PN ---
Physical Exam: SUBJECTIVE: Patient seen and examined. No acute events overnight. Patient offers no complaints this morning except pain at the site of cellulitis. Denies nausea, vomiting, headache, abdominal pain. OBJECTIVE: Vital Signs Period Temp Pulse Resp BP Sys/Choi Pulse Ox Last 24 Hr 98.5 F-99.1 F 83-88 20-21 114-138/73-90 GENERAL: somnolent, lethargic, oriented x 3 HEAD: Normal with no signs of trauma. EYES: 1mm pupils, minimally reactive ENT: oropharynx clear without exudates, moist mucous membranes. NECK: supple. LUNGS: Breath sounds equal, clear to auscultation bilaterally, no wheezes, no crackles, no accessory muscle use. HEART: Regular rate and rhythm, S1, S2 with 4/6 crescendo-decrescendo murmur ABDOMEN:Soft, Distended, Ascites, normoactive bowel sounds, nontender EXTREMITIES: Dp pulses 2+, RLE ulceration, granulation, bleeding tissue. SKIN: Warm, dry, normal turgor, no rashes or lesions noted Laboratory Results - last 24 hr 11/17/16 11/17/16 11/18/16 17:00 17:00 06:45 WBC 5.7 RBC 3.72 L Hgb 8.2 L Hct 26.4 L MCV 71.0 L MCH 22.0 L MCHC 31.0 L RDW 20.7 H Plt Count 86 L MPV 8.0 Sodium Potassium Chloride Carbon Dioxide Anion Gap BUN Creatinine Creat Clearance w eGFR Random Glucose Lactic Acid 1.3 Calcium Phosphorus Magnesium Total Bilirubin AST ALT Alkaline Phosphatase Ammonia 117.98 H Total Protein Albumin 11/18/16 06:45 WBC RBC Hgb Hct MCV MCH MCHC RDW Plt Count MPV Sodium 142 Potassium 3.5 Chloride 110 H Carbon Dioxide 25 Anion Gap 7 L BUN 9 Creatinine 0.4 L Creat Clearance w eGFR > 60 Random Glucose 71 L D Lactic Acid Calcium 7.6 L Phosphorus 3.4 Magnesium 1.8 Total Bilirubin 1.3 H D AST 34 ALT 24 Alkaline Phosphatase 116 Ammonia Total Protein 6.2 L Albumin 1.6 L Active Medications Generic Name Dose Route Start Last Admin Trade Name Freq PRN Reason Stop Dose Admin Ascorbic Acid 500 mg 11/14/16 10:00 11/18/16 10:31 Vitamin C - PO 500 mg DAILY [facility] Administration Collagenase 1 applic 11/14/16 19:45 11/18/16 10:33 Santyl - TP 1 applic DAILY [facility] Administration Ferrous Sulfate 325 mg 11/16/16 13:30 11/18/16 10:31 Feosol - PO 325 mg DAILY [facility] Administration Folic Acid 1 mg 11/14/16 10:00 11/18/16 10:30 Folic Acid - PO 1 mg DAILY [facility] Administration Furosemide 20 mg 11/14/16 17:45 11/18/16 10:31 Lasix - PO 20 mg DAILY [facility] Administration Gabapentin 100 mg 11/17/16 14:00 11/18/16 06:05 Neurontin - PO 100 mg TID [facility] Administration Ampicillin Sodium/Sulbactam 100 mls @ 200 mls/hr 11/14/16 14:00 11/18/16 10:30 Sodium 3 gm/ Sodium Chloride IVPB 200 mls/hr Q8H-IV [facility] Administration Lactulose 30 gm 11/16/16 22:00 11/18/16 10:32 Cephulac (Oral Use) PO 30 gm QID [facility] Administration Lorazepam 0.5 mg 11/18/16 10:11 Ativan - PO BID PRN ANXIETY Methadone HCl 10 mg 11/19/16 14:00 Dolophine - PO 11/19/16 14:01 ONCE ONE Methadone HCl 10 mg 11/20/16 14:00 Dolophine - PO 11/20/16 14:01 ONCE ONE Methadone HCl 5 mg 11/21/16 14:00 Dolophine - PO 11/21/16 14:01 ONCE ONE Methadone HCl 15 mg 11/18/16 14:00 Dolophine - PO 11/18/16 14:01 ONCE ONE Oxycodone HCl 5 mg 11/16/16 16:40 11/18/16 10:32 Roxicodone - PO 5 mg Q6H PRN Administration PAIN Pantoprazole Sodium 40 mg 11/14/16 10:00 11/18/16 10:31 Protonix - PO 40 mg DAILY [facility] Administration Rifaximin 550 mg 11/15/16 10:00 11/18/16 10:30 Xifaxan - PO 550 mg BID [facility] Administration Spironolactone 50 mg 11/14/16 17:45 11/18/16 10:31 Aldactone - PO 50 mg DAILY [facility] Administration Thiamine HCl 100 mg 11/14/16 10:00 11/18/16 10:31 Vitamin B1 - PO 100 mg DAILY [facility] Administration ASSESSMENT/PLAN: #Acute toxic encephalopathy - Hyperammonemia vs Severe Sepsis due to RLE cellulitis -improved mental status, likely at baseline -distended abdomen, ascites -CT negative for SBO -continue Lactulose 30mg q6 - continue rifaximin 550 PO BID -LFT's trending down -Continue Unasyn (day 5) -Duplex negative #Ascitis: -Unlikely SBP -Liver U/s and CT with moderate ascitis #RLE cellulitis - last wbc 5.7 -improved -multiple previous admissions for same problem -chronic, non-compliant -Continue santyl/xeroform, telfa with gauze and kerlix daily - ID on board -continue Unasyn (day 5) #Polysubstance abuse -held librium- will monitor withdrawal symptoms -Ativan .5 mg PO BID -Will start methadone detox. 15mg today. 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 -GI consulted for EGD eval -Nadolol started for variceal bleeding ppx -iron deficiency -monitor H&H -treat if hemoglobin <7 -cont iron supplements #Hypokalemia -resolved #FEN -Not on any fluids -WNL -Sodium controlled diet #DVT PPX -held (thrombocytopenia) Visit type - Emergency Visit Emergency Visit: Yes ED Registration Date: 11/14/16 Care time: The patient presented to the Emergency Department on the above date and was hospitalized for further evaluation of their emergent condition. - New Patient This patient is new to me today: No - Critical Care Critical Care patient: No
[2016-11-18] MEDS ORDERED: METHADONE HCL 5 MG TABLET PO ONE (14:00)
[2016-11-18 14:40] LABS: MICROCYTOSIS 2+
[2016-11-18 14:41] LABS: ANISOCYTOSIS 2+; HYPOCHROMIA 1+
--- NOTE | 2016-11-18 15:28 | PN ---
Progress Note, Physician History of Present Illness: continues to improve patient stable wound healing better - Current Medication List Current Medications: Active Medications Ascorbic Acid (Vitamin C -) 500 mg PO DAILY [facility] Last Admin: 11/18/16 10:31 Dose: 500 mg Collagenase (Santyl -) 1 applic TP DAILY [facility] Last Admin: 11/18/16 10:33 Dose: 1 applic Ferrous Sulfate (Feosol -) 325 mg PO DAILY [facility] Last Admin: 11/18/16 10:31 Dose: 325 mg Folic Acid (Folic Acid -) 1 mg PO DAILY [facility] Last Admin: 11/18/16 10:30 Dose: 1 mg Furosemide (Lasix -) 20 mg PO DAILY [facility] Last Admin: 11/18/16 10:31 Dose: 20 mg Gabapentin (Neurontin -) 100 mg PO TID [facility] Last Admin: 11/18/16 14:46 Dose: 100 mg Ampicillin Sodium/Sulbactam (Sodium 3 gm/ Sodium Chloride) 100 mls @ 200 mls/ hr IVPB Q8H-IV [facility] Last Admin: 11/18/16 10:30 Dose: 200 mls/hr Lactulose (Cephulac (Oral Use)) 30 gm PO QID [facility] Last Admin: 11/18/16 14:47 Dose: 30 gm Lorazepam (Ativan -) 0.5 mg PO BID PRN PRN Reason: ANXIETY Methadone HCl (Dolophine -) 10 mg PO ONCE ONE Stop: 11/19/16 14:01 Methadone HCl (Dolophine -) 10 mg PO ONCE ONE Stop: 11/20/16 14:01 Methadone HCl (Dolophine -) 5 mg PO ONCE ONE Stop: 11/21/16 14:01 Oxycodone HCl (Roxicodone -) 5 mg PO Q6H PRN PRN Reason: PAIN Last Admin: 11/18/16 10:32 Dose: 5 mg Pantoprazole Sodium (Protonix -) 40 mg PO DAILY [facility] Last Admin: 11/18/16 10:31 Dose: 40 mg Rifaximin (Xifaxan -) 550 mg PO BID [facility] Last Admin: 11/18/16 10:30 Dose: 550 mg Spironolactone (Aldactone -) 50 mg PO DAILY [facility] Last Admin: 11/18/16 10:31 Dose: 50 mg Thiamine HCl (Vitamin B1 -) 100 mg PO DAILY [facility] Last Admin: 11/18/16 10:31 Dose: 100 mg - Objective Vital Signs: Vital Signs Temperature 98.0 F 11/18/16 10:00 Pulse Rate 87 11/18/16 10:00 Respiratory Rate 20 11/18/16 10:00 Blood Pressure 112/72 11/18/16 10:00 O2 Sat by Pulse Oximetry (%) 95 11/15/16 20:14 Constitutional: Yes: No Distress, Calm Cardiovascular: Yes: Regular Rate and Rhythm Respiratory: Yes: Regular, CTA Bilaterally Musculoskeletal: Yes: Other Extremities: Yes: Other Wound/Incision: Yes: Dressing Dry and Intact Neurological: Yes: Alert Labs: CBC, BMP 11/18/16 06:45 11/18/16 06:45 INR, PTT INR 1.75 (0.82-1.09) H 11/14/16 08:35 Assessment/Plan Intoxication #Cellulitis #Hepatic encephalopathy/Cirrhosis #Hypokalemia #Lactic Acidosis plan patient going to be worked up for ascites patient to continue abx rest as per primary awaiting final decision
--- NOTE | 2016-11-18 16:16 | PN ---
Teaching Attending Note Name of Resident: Shanita Ying ATTENDING PHYSICIAN STATEMENT I saw and evaluated the patient. I reviewed the resident's note and discussed the case with the resident. I agree with the resident's findings and plan as documented. SUBJECTIVE: no fever or chills. has no abd pain , has no N/V. had 4 BMs last night , even without lactulose enema OBJECTIVE: NAD , awake , alert, cooperative MMM CV: RRR, 3/6 DM in LUSB. Lungs : CTAB Ext: trace edema on L leg. R leg with ulcers, No slough today,has granulation, bleeding tissue . DP 2+ b/l Abd: soft, distended , decreased BS ,shifting dullness, no TTP , no hepatosplenomegaly. ASSESSMENT AND PLAN: 46 y/o man with h/o alcohol abuse, multisubstance abuse, cirrhosis, HCV, SBO s/ p Bowel resection , who presented with AMS. He was found to have acute encephalopathy. 1- AMS: could be due to hepatic encephalopathy , with component of metabolic encephalopathy and alcohol intoxication now back to base line - cont lactulose QID . CT scan with no obstruction - montior and treat for withdrawal - decrease ativan to 0.5 mg BID PRN only for withdrawal sx - will start a methadone detoc with 15 mg , then 10 , then 5 . DC 10 BID dosing - cont Rifaximin 2- Ascitis: seen on CT scan . - US with mod amount ascitis - cont diuretics and low salt diet 3- RLE cellulitis with infected ulcers: improved - cont unasyn - chemical debridment 4- Thrombocytopeia: likely due to liver dz 5- Cirrhosis : cont lasix and spironolactone , rifaximine and lactulose. 6- Polysubstance abuse : - Ativan dose to 0.5 - Methadone detox 7- Microcytic anemia: iron def on labs. - cont iron supp - CT scan with periesophageal varices. - will ask GI to evaluate for EGD - will start nadolol for variceal bleeding prophylaxis DVT PX : hold heparin due to thrombocytopenia SCD on L ordered .
[2016-11-18] MEDS ORDERED: NADOLOL 40 MG TABLET (FP) PO SCH (16:45)
[2016-11-18] MEDS ORDERED: NADOLOL 20 MG TABLET (FP) PO SCH (17:15)
[2016-11-18] MEDS ORDERED: LACTULOSE 20 GM/30 ML UDC (FOR RECTAL USE ONLY) PR ONE (17:38)
--- NOTE | 2016-11-18 19:18 | PN ---
Progress Note (short form) - Note Progress Note: Chart reviewed, events noted. Case discussed with the covering resident. Diagnostic paracentesis, r/o SBP. If present, change Abx to 3rd gen cephalosporin and stop nadalol Give adequate lactulose po/pr to maintain at least 4 bms/day. Avoid sedatives Close monitoring for changes in mental status. Bili, BUN, creatinine, electrolytes Transfer to ICU if mental status worsens EGD on Monday to asses esophageal varices Full consult to follow.
--- NOTE | 2016-11-18 19:26 | PN ---
Progress Note, Physician History of Present Illness: The pt was more lethargic this afternoon. We measured his temperature, it was 101F around 2 PM and 100.6F around 5 PM. We are concerned that he is developing SBP. We consulted Dr Rivera who recommended giving Lactulose, close monitoring patient , diagnostic paracenthesis and upper endoscopy on Monday. He will be NPO after midnight to undergo endoscopy on Monday. I also contacted Dr Beebe who recommended cont. Unasyn and will assess the pt in AM. The case was discussed with Dr Solitario. - Current Medication List Current Medications: Active Medications Ascorbic Acid (Vitamin C -) 500 mg PO DAILY [facility] Last Admin: 11/18/16 10:31 Dose: 500 mg Collagenase (Santyl -) 1 applic TP DAILY [facility] Last Admin: 11/18/16 10:33 Dose: 1 applic Ferrous Sulfate (Feosol -) 325 mg PO DAILY [facility] Last Admin: 11/18/16 10:31 Dose: 325 mg Folic Acid (Folic Acid -) 1 mg PO DAILY [facility] Last Admin: 11/18/16 10:30 Dose: 1 mg Furosemide (Lasix -) 20 mg PO DAILY [facility] Last Admin: 11/18/16 10:31 Dose: 20 mg Gabapentin (Neurontin -) 100 mg PO TID [facility] Last Admin: 11/18/16 14:46 Dose: 100 mg Ampicillin Sodium/Sulbactam (Sodium 3 gm/ Sodium Chloride) 100 mls @ 200 mls/ hr IVPB Q8H-IV [facility] Last Admin: 11/18/16 17:56 Dose: 200 mls/hr Lactulose (Cephulac (Oral Use)) 30 gm PO QID [facility] Last Admin: 11/18/16 18:05 Dose: Not Given Lorazepam (Ativan -) 0.5 mg PO BID PRN PRN Reason: ANXIETY Methadone HCl (Dolophine -) 10 mg PO ONCE ONE Stop: 11/19/16 14:01 Methadone HCl (Dolophine -) 10 mg PO ONCE ONE Stop: 11/20/16 14:01 Methadone HCl (Dolophine -) 5 mg PO ONCE ONE Stop: 11/21/16 14:01 Nadolol (Corgard -) 40 mg PO DAILY [facility] Last Admin: 11/18/16 18:08 Dose: 40 mg Oxycodone HCl (Roxicodone -) 5 mg PO Q6H PRN PRN Reason: PAIN Last Admin: 11/18/16 10:32 Dose: 5 mg Pantoprazole Sodium (Protonix -) 40 mg PO DAILY [facility] Last Admin: 11/18/16 10:31 Dose: 40 mg Rifaximin (Xifaxan -) 550 mg PO BID [facility] Last Admin: 11/18/16 10:30 Dose: 550 mg Spironolactone (Aldactone -) 50 mg PO DAILY [facility] Last Admin: 11/18/16 10:31 Dose: 50 mg Thiamine HCl (Vitamin B1 -) 100 mg PO DAILY [facility] Last Admin: 11/18/16 10:31 Dose: 100 mg - Objective Vital Signs: Vital Signs Temperature 98.0 F 11/18/16 10:00 Pulse Rate 87 11/18/16 10:00 Respiratory Rate 20 11/18/16 10:00 Blood Pressure 112/72 11/18/16 10:00 O2 Sat by Pulse Oximetry (%) 95 11/15/16 20:14 Constitutional: Yes: Other (lethargic) Neck: Yes: Supple Cardiovascular: Yes: Regular Rate and Rhythm Respiratory: Yes: Regular, CTA Bilaterally Gastrointestinal: Yes: Normal Bowel Sounds, Soft, Ascites, Distention Labs: CBC, BMP 11/18/16 06:45 11/18/16 06:45 INR, PTT INR 1.75 (0.82-1.09) H 11/14/16 08:35 Problem List - Problems (1) Acute hypokalemia Code(s): E87.6 - HYPOKALEMIA (2) Altered mental status Code(s): R41.82 - ALTERED MENTAL STATUS, UNSPECIFIED Qualifiers: Altered mental status type: somnolence Qualified Code(s): R40.0 - Somnolence; R40.0 - Somnolence (3) Cellulitis of right leg Code(s): L03.115 - CELLULITIS OF RIGHT LOWER LIMB (4) Hyperammonemia Code(s): E72.20 - DISORDER OF UREA CYCLE METABOLISM, UNSPECIFIED (5) Opioid dependence Code(s): F11.20 - OPIOID DEPENDENCE, UNCOMPLICATED (6) Ulcer of right calf Code(s): L97.219 - NON-PRESSURE CHRONIC ULCER OF RIGHT CALF WITH UNSP SEVERITY Qualifiers: Non-pressure ulcer stage: limited to breakdown of skin Qualified Code(s): L97.211 - Non-pressure chronic ulcer of right calf limited to breakdown of skin; L97.211 - Non-pressure chronic ulcer of right calf limited to breakdown of skin; L97.211 - Non-pressure chronic ulcer of right calf limited to breakdown of skin; L97.211 - Non-pressure chronic ulcer of right calf limited to breakdown of skin (7) Wound infection Code(s): T14.8 - OTHER INJURY OF UNSPECIFIED BODY REGION * DO NOT USE * L08.9 - LOCAL INFECTION OF THE SKIN AND SUBCUTANEOUS TISSUE, UNSP (8) Liver failure Code(s): K72.90 - HEPATIC FAILURE, UNSPECIFIED WITHOUT COMA (9) Polysubstance abuse Code(s): F19.10 - OTHER PSYCHOACTIVE SUBSTANCE ABUSE, UNCOMPLICATED (10) Hypokalemia Code(s): E87.6 - HYPOKALEMIA (11) Laceration Code(s): T14.8 - OTHER INJURY OF UNSPECIFIED BODY REGION * DO NOT USE * (12) Venous stasis ulcer of right lower extremity Code(s): I83.019 - VARICOSE VEINS OF RIGHT LOWER EXTREMITY W ULCER OF UNSP SITE (13) Alcohol abuse Code(s): F10.10 - ALCOHOL ABUSE, UNCOMPLICATED
[2016-11-18] MEDS ORDERED: LORazepam 0.5 MG TABLET PO SCH (22:00)
[2016-11-19] MEDS: AMPICILLIN NA/SULBACTAM NA 3 GM in SODIUM CHLORIDE 100 ML IVPB SCH ×3 (01:31→18:14)
[2016-11-19] MEDS: oxyCODONE HCL 5 MG TABLET PO PRN ×2 (05:03→20:20)
[2016-11-19] MEDS: GABAPENTIN 100 MG CAPSULE (FP) PO SCH ×3 (05:04→21:44)
[2016-11-19 07:41] LABS: MCH 22.2 pg (25.7-33.7); MCHC 31.2 g/dl (32.0-35.9); MEAN CELL VOLUME 71.1 fl (80-96); MEAN PLT VOLUME 6.9 fl (7.5-11.1); PLATELET COUNT 92 K/MM3 (134-434); RDW 20.7 % (11.9-15.9); WHITE BLOOD COUNT 6.3 K/mm3 (4.0-10.0)
[2016-11-19 08:20] LABS: ALBUMIN 1.6 g/dl (3.4-5.0); ALK PHOS 97 U/L (45-117); ANION GAP 7 (8-16); BILIRUBIN,TOTAL 1.4 mg/dL (0.2-1.0); CALCIUM 7.4 mg/dL (8.5-10.1); CO2 25 mmol/L (21-32); CREATININE 0.4 mg/dL (0.7-1.3); GLUCOSE,RANDOM 83 mg/dL (74-106); SGOT/AST 29 U/L (15-37); SGPT/ALT 21 U/L (12-78); TOT PROT 5.9 g/dl (6.4-8.2)
[2016-11-19] MEDS: LORazepam 0.5 MG TABLET PO PRN ×2 (10:12→21:49)
[2016-11-19] MEDS: COLLAGENASE CLOSTRIDIUM HIST. 30 GRAMS TUBE TP SCH (10:17)
[2016-11-19] MEDS: SPIRONOLACTONE 25 MG TABLET (FP) PO SCH (11:36)
[2016-11-19] MEDS: LACTULOSE 20 GM/30 ML UDC (FOR ORAL USE ONLY) PO SCH ×4 (11:37→21:45)
[2016-11-19] MEDS: FERROUS SO4 325 MG TABLET (FP) PO SCH (11:39)
[2016-11-19] MEDS: THIAMINE HCL 100 MG TABLET (FP) PO SCH (11:39)
[2016-11-19] MEDS: FOLIC ACID 1 MG TABLET (FP) PO SCH (11:39)
[2016-11-19] MEDS: FUROSEMIDE 20 MG TABLET (FP) PO SCH (11:39)
[2016-11-19] MEDS: PANTOPRAZOLE 40 MG TABLET (FP) PO SCH (11:39)
[2016-11-19] MEDS: RIFAXIMIN 550 MG TABLET (UD) PO SCH ×2 (11:40→21:44)
[2016-11-19] MEDS: ASCORBIC ACID 500 MG TABLET (FP) PO SCH (11:40)
[2016-11-19] MEDS ORDERED: PT OWN MED DRAWER 7, Y5N ONE ×2 (12:15→18:00)
[2016-11-19] MEDS: NADOLOL 40 MG TABLET (FP) PO SCH (12:21)
--- NOTE | 2016-11-19 12:35 | PN ---
Progress Note, Physician History of Present Illness: patient noah had a spike to 100.3 yesterday lactulose given bowel movement - Current Medication List Current Medications: Active Medications Ascorbic Acid (Vitamin C -) 500 mg PO DAILY [facility] Last Admin: 11/19/16 11:40 Dose: 500 mg Collagenase (Santyl -) 1 applic TP DAILY [facility] Last Admin: 11/19/16 10:17 Dose: 1 applic Ferrous Sulfate (Feosol -) 325 mg PO DAILY [facility] Last Admin: 11/19/16 11:39 Dose: 325 mg Folic Acid (Folic Acid -) 1 mg PO DAILY [facility] Last Admin: 11/19/16 11:39 Dose: 1 mg Furosemide (Lasix -) 20 mg PO DAILY [facility] Last Admin: 11/19/16 11:39 Dose: 20 mg Gabapentin (Neurontin -) 100 mg PO TID [facility] Last Admin: 11/19/16 05:04 Dose: 100 mg Ampicillin Sodium/Sulbactam (Sodium 3 gm/ Sodium Chloride) 100 mls @ 200 mls/ hr IVPB Q8H-IV [facility] Last Admin: 11/19/16 12:21 Dose: 200 mls/hr Lactulose (Cephulac (Oral Use)) 30 gm PO QID [facility] Last Admin: 11/19/16 11:37 Dose: 30 gm Lorazepam (Ativan -) 0.5 mg PO BID PRN PRN Reason: ANXIETY Last Admin: 11/19/16 10:12 Dose: 0.5 mg Methadone HCl (Dolophine -) 10 mg PO ONCE ONE Stop: 11/19/16 14:01 Methadone HCl (Dolophine -) 10 mg PO ONCE ONE Stop: 11/20/16 14:01 Methadone HCl (Dolophine -) 5 mg PO ONCE ONE Stop: 11/21/16 14:01 Nadolol (Corgard -) 40 mg PO DAILY [facility] Last Admin: 11/19/16 12:21 Dose: 40 mg Oxycodone HCl (Roxicodone -) 5 mg PO Q6H PRN PRN Reason: PAIN Last Admin: 11/19/16 05:03 Dose: 5 mg Pantoprazole Sodium (Protonix -) 40 mg PO DAILY [facility] Last Admin: 11/19/16 11:39 Dose: 40 mg Rifaximin (Xifaxan -) 550 mg PO BID [facility] Last Admin: 11/19/16 11:40 Dose: 550 mg Spironolactone (Aldactone -) 50 mg PO DAILY [facility] Last Admin: 11/19/16 11:36 Dose: 50 mg Thiamine HCl (Vitamin B1 -) 100 mg PO DAILY [facility] Last Admin: 11/19/16 11:39 Dose: 100 mg - Objective Vital Signs: Vital Signs Temperature 98.8 F 11/19/16 10:00 Pulse Rate 91 H 11/19/16 10:00 Respiratory Rate 14 11/19/16 10:00 Blood Pressure 120/72 11/19/16 10:00 O2 Sat by Pulse Oximetry (%) 95 11/15/16 20:14 Constitutional: Yes: No Distress, Calm Cardiovascular: Yes: Regular Rate and Rhythm Respiratory: Yes: Regular, CTA Bilaterally Gastrointestinal: Yes: Normal Bowel Sounds, Soft Musculoskeletal: Yes: Other Extremities: Yes: Other Integumentary: Yes: Erythema (resolving) Wound/Incision: Yes: Dressing Dry and Intact Neurological: Yes: Alert Psychiatric: Yes: Alert Labs: CBC, BMP 11/19/16 07:25 11/19/16 07:25 INR, PTT INR 1.75 (0.82-1.09) H 11/14/16 08:35 Assessment/Plan Intoxication #Cellulitis #Hepatic encephalopathy/Cirrhosis #Hypokalemia #Lactic Acidosis plan continue abx monitor for fever wbc if patient starts spiking fever then paracentesis
--- NOTE | 2016-11-19 13:49 | PN ---
Teaching Attending Note Name of Resident: Daniel Holbrook ATTENDING PHYSICIAN STATEMENT I saw and evaluated the patient. I reviewed the resident's note and discussed the case with the resident. I agree with the resident's findings and plan as documented. SUBJECTIVE: no fever or chills. has no ABd pain,. reports 2 BMS yesterday. no melena or hematochezia OBJECTIVE: NAD , awake , alert, oriented x 3 MMM CV: RRR, 3/6 DM in LUSB. Lungs : CTAB Ext: Refused exam of R leg Abd: soft, distended , Nl BS ,shifting dullness, no TTP , no hepatosplenomegaly. ASSESSMENT AND PLAN: 46 y/o man with h/o alcohol abuse, multisubstance abuse, cirrhosis, HCV, SBO s/ p Bowel resection , who presented with AMS. He was found to have acute encephalopathy. 1- AMS: could be due to hepatic encephalopathy , with component of metabolic encephalopathy and alcohol intoxication now back to base line - cont lactulose QID . - minimize and taper off benzos - cont methadone taper - cont Rifaximin 2- Cirrhosis , with ascitis : fever did not recur, and pt has no abd pain or tenderness and mental status is at base line fever yesterday, was concerning for SBP. -PT cont refuse diagnostic paracentesis to r/o SBP. -will d/w ID and GI whether he should be treated any way -cont diuretics. - check Cxray and UA to r/o other sources for infection 3- RLE cellulitis with infected ulcers: improved - cont unasyn - chemical debridment 4- Thrombocytopeia: likely due to liver dz 5- Polysubstance abuse : - Ativan dose to 0.5 BID for withdrawal sx only. taper off - Methadone detox , 10 mg today then 5 tomorrow 6- Microcytic anemia: iron def on labs. - cont iron supp - concern for variceal bleed ( not active ) - Cont nadolol for variceal bleeding prophylaxis - GI input appreciated, EGD on Monday DVT PX : hold heparin due to thrombocytopenia SCD on L ordered .
[2016-11-19] MEDS ORDERED: METHADONE HCL 5 MG TABLET PO ONE (14:00)
[2016-11-19] MEDS ORDERED: METHADONE HCL 10 MG TABLET PO ONE (14:00)
--- NOTE | 2016-11-19 14:33 | PN ---
Physical Exam: SUBJECTIVE: Patient seen and examined. No acute events overnight. Pt complaining of a headache, /, relieved with pain medication. Pt angry that he isn't getting his pain medications every 4 hours. He denies SOB, chest pain, abdominal pain, n/v/d/c, and dysuria. He reports having 2 large BMs yesterday. OBJECTIVE: Vital Signs Period Temp Pulse Resp BP Sys/Choi Pulse Ox Last 24 Hr 98.8 F-100.3 F 85-99 12-20 101-133/59-83 GENERAL: The patient is awake, drowsy, sitting in bed eating breakfast HEAD: Normal with no signs of trauma. EYES: PERRL, extraocular movements intact, sclera anicteric, conjunctiva clear. No ptosis. ENT: Ears normal, nares patent, oropharynx clear without exudates, moist mucous membranes. NECK: Trachea midline, full range of motion, supple. LUNGS: Breath sounds equal, clear to auscultation bilaterally, no wheezes, no crackles, no accessory muscle use. HEART: RRR, 3/6 diastolic murmur in LUSB Abdomen: distended with fluid wave, vertical midline scar, +caput medusae, NT EXTREMITIES: RLE has bandage overlying large area of cellulitis with healing posterior ulcer, extremely tender to palpation. Less sloughing compared to previous days NEUROLOGICAL: Cranial nerves II through XII grossly intact. drowsy, normal speech, gait not observed. Laboratory Results - last 24 hr 11/18/16 11/19/16 11/19/16 06:45 07:25 07:25 WBC 5.7 6.3 RBC 3.72 L 3.54 L Hgb 8.2 L 7.9 L Hct 26.4 L 25.2 L MCV 71.0 L 71.1 L MCH 22.0 L 22.2 L MCHC 31.0 L 31.2 L RDW 20.7 H 20.7 H Plt Count 86 L 92 L MPV 8.0 6.9 L D Hypochromia 1+ Anisocytosis 2+ Microcytosis 2+ Sodium 142 Potassium 3.4 L Chloride 110 H Carbon Dioxide 25 Anion Gap 7 L BUN 9 Creatinine 0.4 L Creat Clearance w eGFR > 60 Random Glucose 83 Calcium 7.4 L Total Bilirubin 1.4 H AST 29 ALT 21 Alkaline Phosphatase 97 Total Protein 5.9 L Albumin 1.6 L Active Medications Generic Name Dose Route Start Last Admin Trade Name Freq PRN Reason Stop Dose Admin Ascorbic Acid 500 mg 11/14/16 10:00 11/19/16 11:40 Vitamin C - PO 500 mg DAILY KENDRICK Administration Collagenase 1 applic 11/14/16 19:45 11/19/16 10:17 Santyl - TP 1 applic DAILY KENDRICK Administration Ferrous Sulfate 325 mg 11/16/16 13:30 11/19/16 11:39 Feosol - PO 325 mg DAILY KENDRICK Administration Folic Acid 1 mg 11/14/16 10:00 11/19/16 11:39 Folic Acid - PO 1 mg DAILY KENDRICK Administration Furosemide 20 mg 11/14/16 17:45 11/19/16 11:39 Lasix - PO 20 mg DAILY KENDRICK Administration Gabapentin 100 mg 11/17/16 14:00 11/19/16 05:04 Neurontin - PO 100 mg TID KENDRICK Administration Ampicillin Sodium/Sulbactam 100 mls @ 200 mls/hr 11/14/16 14:00 11/19/16 12:21 Sodium 3 gm/ Sodium Chloride IVPB 200 mls/hr Q8H-IV KENDRICK Administration Lactulose 30 gm 11/16/16 22:00 11/19/16 11:37 Cephulac (Oral Use) PO 30 gm QID KENDRICK Administration Lorazepam 0.5 mg 11/18/16 10:11 11/19/16 10:12 Ativan - PO 0.5 mg BID PRN Administration ANXIETY Methadone HCl 10 mg 11/20/16 14:00 Dolophine - PO 11/20/16 14:01 ONCE ONE Methadone HCl 5 mg 11/21/16 14:00 Dolophine - PO 11/21/16 14:01 ONCE ONE Nadolol 40 mg 11/19/16 10:00 11/19/16 12:21 Corgard - PO 40 mg DAILY KENDRICK Administration Oxycodone HCl 5 mg 11/16/16 16:40 11/19/16 05:03 Roxicodone - PO 5 mg Q6H PRN Administration PAIN Pantoprazole Sodium 40 mg 11/14/16 10:00 11/19/16 11:39 Protonix - PO 40 mg DAILY KENDRICK Administration Rifaximin 550 mg 11/15/16 10:00 11/19/16 11:40 Xifaxan - PO 550 mg BID KENDRICK Administration Spironolactone 50 mg 11/14/16 17:45 11/19/16 11:36 Aldactone - PO 50 mg DAILY KENDRICK Administration Thiamine HCl 100 mg 11/14/16 10:00 11/19/16 11:39 Vitamin B1 - PO 100 mg DAILY KENDRICK Administration ASSESSMENT/PLAN: 46M with hx of polysubstance abuse, cirrhosis, HCV, and SBO s/p bowel resection who presented with AMS and RLE pain/rash, found to have acute encephalopathy. #AMS- multi-factorial including hepatic encephalopathy, metabolic encephalopathy , and alcohol intoxication -back at baseline - cont lactulose QID, Rifaximin 550mg BID, methadone taper (today is methadone 10mg) - minimize and taper off benzos. Today, pt is on ativan 0.5mg BID, switch to qd starting clarence #Cirrhosis with ascitis -fever of 100.3 last night without a leukocytosis, concerning for SBP. When pt was explained concern for SBP and need for diagnostic paracentesis, pt stated that he "needs to ask his mother first." -per attending, will d/w ID and GI whether he should be treated any way -cont lasix 20 and spironolctone 50. -CXR negative for any source of PNA -f/u UA as cause for fever #RLE cellulitis with infected ulcers -improved -cont unasyn and chemical debridment #Thrombocytopeia - likely due to cirrhosis #Polysubstance abuse - minimize and taper off benzos. Today, pt is on ativan 0.5mg BID, switch to qd starting clarence - Methadone detox, 10 mg today then 5 tomorrow #Microcytic anemia -labs consistent with iron deficiency - cont iron supp with ferrous sulfate 325 - cont nadolol 40mg for variceal bleeding prophylaxis - GI input appreciated, EGD scheduled on Monday #FEN/PPx -no fluids -electrolytes wnl -sodium controlled diet -protonix 40 -SCD on left leg, heparin held due to thrombocytopenia -Daniel Holbrook MD PGY1 Visit type - Emergency Visit Emergency Visit: Yes ED Registration Date: 11/14/16 Care time: The patient presented to the Emergency Department on the above date and was hospitalized for further evaluation of their emergent condition. - New Patient This patient is new to me today: Yes Date on this admission: 11/19/16 - Critical Care Critical Care patient: No
[2016-11-19] MEDS ORDERED: POTASSIUM CHLORIDE TABS 20 MEQ TABLET.ER (FP) PO ONE (14:59)
[2016-11-19 15:54] LABS: URINE APPEARANCE CLEAR; URINE BILIRUBIN NEGATIVE (NEGATIVE); URINE BLOOD NEGATIVE (NEGATIVE); URINE COLOR YELLOW; URINE GLUCOSE (UA) NEGATIVE (NEGATIVE); URINE KETONE NEGATIVE (NEGATIVE); URINE NITRITE NEGATIVE (NEGATIVE); URINE PROTEIN NEGATIVE (NEGATIVE); URINE UROBILINOGEN NEGATIVE mg/dL (0.2-1.0)
[2016-11-19 18:15] LABS: URINE LEUK ESTERASE Negative (NEGATIVE)
[2016-11-20] MEDS: AMPICILLIN NA/SULBACTAM NA 3 GM in SODIUM CHLORIDE 100 ML IVPB SCH (01:09)
[2016-11-20] MEDS: oxyCODONE HCL 5 MG TABLET PO PRN ×3 (03:29→21:59)
[2016-11-20] MEDS: GABAPENTIN 100 MG CAPSULE (FP) PO SCH ×3 (05:57→21:59)
[2016-11-20 08:05] LABS: BASOPHIL 0.5 % (0-2.0); EOSINOPHIL 2.9 % (0-4.5); MCH 22.2 pg (25.7-33.7); MCHC 30.1 g/dl (32.0-35.9); MEAN CELL VOLUME 73.6 fl (80-96); MEAN PLT VOLUME 8.3 fl (7.5-11.1); NEUTROPHILS 67.8 % (42.8-82.8); PLATELET COUNT 88 K/MM3 (134-434); RDW 21.1 % (11.9-15.9); WHITE BLOOD COUNT 6.4 K/mm3 (4.0-10.0)
[2016-11-20 08:27] LABS: ANION GAP 5 (8-16); CALCIUM 7.8 mg/dL (8.5-10.1); CO2 26 mmol/L (21-32); CREATININE 0.5 mg/dL (0.7-1.3); GLUCOSE,RANDOM 82 mg/dL (74-106)
[2016-11-20] MEDS: PANTOPRAZOLE 40 MG TABLET (FP) PO SCH (09:48)
[2016-11-20] MEDS: ASCORBIC ACID 500 MG TABLET (FP) PO SCH (09:48)
[2016-11-20] MEDS: RIFAXIMIN 550 MG TABLET (UD) PO SCH ×2 (09:48→21:58)
[2016-11-20] MEDS: SPIRONOLACTONE 25 MG TABLET (FP) PO SCH (09:48)
[2016-11-20] MEDS: THIAMINE HCL 100 MG TABLET (FP) PO SCH (09:48)
[2016-11-20] MEDS: FOLIC ACID 1 MG TABLET (FP) PO SCH (09:48)
[2016-11-20] MEDS: FERROUS SO4 325 MG TABLET (FP) PO SCH (09:48)
[2016-11-20] MEDS: NADOLOL 40 MG TABLET (FP) PO SCH (09:49)
[2016-11-20] MEDS: FUROSEMIDE 20 MG TABLET (FP) PO SCH (09:49)
[2016-11-20] MEDS: LACTULOSE 20 GM/30 ML UDC (FOR ORAL USE ONLY) PO SCH ×4 (09:50→21:54)
[2016-11-20] MEDS ORDERED: CEFTRIAXONE 1 GM in DEXTROSE 5%-WATER - 50 ML IVPB SCH (10:00)
[2016-11-20] MEDS: COLLAGENASE CLOSTRIDIUM HIST. 30 GRAMS TUBE TP SCH (10:07)
[2016-11-20] MEDS ORDERED: CEFTRIAXONE 1 GM in DEXTROSE 5%-WATER - 50 ML IVPB ONE ×2 (11:49→12:45)
--- NOTE | 2016-11-20 11:56 | PN ---
Progress Note (short form) - Note Progress Note: Subjective: no abd pain , had 3 BMs yesterday. does not like lactulose , not compliant with it per RN. No SOB or CP. Objective: Vital Signs: Last Vital Signs Temp Pulse Resp BP Pulse Ox 98.2 F 75 20 107/56 95 11/20/16 08:54 11/20/16 08:54 11/20/16 08:54 11/20/16 08:54 11/15/16 20:14 Laboratory Results - last 24 hr 11/19/16 11/20/16 11/20/16 14:45 07:30 07:30 WBC 6.4 RBC 3.96 L Hgb 8.8 L D Hct 29.2 L D MCV 73.6 L MCH 22.2 L MCHC 30.1 L RDW 21.1 H Plt Count 88 L MPV 8.3 D Neutrophils % 67.8 Lymphocytes % 17.8 Monocytes % 11.0 H Eosinophils % 2.9 Basophils % 0.5 Sodium 147 H Potassium 3.9 Chloride 116 H Carbon Dioxide 26 Anion Gap 5 L BUN 8 Creatinine 0.5 L D Random Glucose 82 Calcium 7.8 L Urine Color Yellow Urine Appearance Clear Urine pH 6.0 Ur Specific [place] 1.020 Urine Protein Negative Urine Glucose (UA) Negative Urine Ketones Negative Urine Blood Negative Urine Nitrite Negative Urine Bilirubin Negative Urine Urobilinogen Negative Ur Leukocyte Esterase Negative Physical Exam: NAD , awake , alert, oriented x 3 MMM CV: RRR, 3/6 DM in LUSB. Lungs : CTAB Ext: Refused exam of R leg Abd: soft, distended , Nl BS ,shifting dullness, no TTP , no hepatosplenomegaly. ASSESSMENT AND PLAN: 46 y/o man with h/o alcohol abuse, multisubstance abuse, cirrhosis, HCV, SBO s/ p Bowel resection , who presented with AMS. He was found to have acute encephalopathy. 1- AMS: could be due to hepatic encephalopathy , with component of metabolic encephalopathy and alcohol intoxication now back to base line - cont lactulose QID. -decrease dose of ativan to 0.5 daily PRN for withdrawal x 2 days only - cont methadone taper ( last dose today ) - cont Rifaximin 2- Cirrhosis , with ascitis : fever had recurred .Cont to refuse diagnostic paracentesis - Start ceftriaxone 2 g daily as empiric treatment for SBP - cont diuretics. - Monitor renaL FUNCTION - CXRAY and UA neg fro other source of infection 3- RLE cellulitis with infected ulcers: improved - Abx changed to CTx as above - chemical debridment 4- Thrombocytopeia: likely due to liver dz 5- Polysubstance abuse : - Ativan dose to 0.5 BID for withdrawal sx only. taper off - Methadone detox , 5 mg today then stop 6- Microcytic iron def anemia: - co nt iron supp - Cont nadolol for variceal bleeding prophylaxis - GI input appreciated, EGD on Monday , make NPO after MN DVT PX : hold heparin due to thrombocytopenia SCD on L ordered . Risks of non compliance with medical treatment were explained to him. Visit type - Emergency Visit Emergency Visit: Yes ED Registration Date: 11/14/16 Care time: The patient presented to the Emergency Department on the above date and was hospitalized for further evaluation of their emergent condition. - New Patient This patient is new to me today: No - Critical Care Critical Care patient: No
[2016-11-20] MEDS ORDERED: CEFTRIAXONE 2 GM in DEXTROSE 5%-WATER 100 ML IVPB SCH (12:45)
[2016-11-20] MEDS ORDERED: CEFEPIME HCL 1 GM VIAL (RESTRICTED TO ID) IVPB SCH (13:15)
--- NOTE | 2016-11-20 13:24 | PN ---
Progress Note, Physician History of Present Illness: still spiking fevers low grade fever patient refusing tap clinically stable - Current Medication List Current Medications: Active Medications Ascorbic Acid (Vitamin C -) 500 mg PO DAILY [facility] Last Admin: 11/20/16 09:48 Dose: 500 mg Collagenase (Santyl -) 1 applic TP DAILY [facility] Last Admin: 11/20/16 10:07 Dose: 1 applic Ferrous Sulfate (Feosol -) 325 mg PO DAILY [facility] Last Admin: 11/20/16 09:48 Dose: 325 mg Folic Acid (Folic Acid -) 1 mg PO DAILY [facility] Last Admin: 11/20/16 09:48 Dose: 1 mg Furosemide (Lasix -) 20 mg PO DAILY [facility] Last Admin: 11/20/16 09:49 Dose: 20 mg Gabapentin (Neurontin -) 100 mg PO TID [facility] Last Admin: 11/20/16 05:57 Dose: 100 mg Cefepime HCl 1 gm/ Dextrose 100 mls @ 200 mls/hr IVPB Q8H-IV KENDRICK Lactulose (Cephulac (Oral Use)) 30 gm PO QID [facility] Last Admin: 11/20/16 13:14 Dose: Not Given Lorazepam (Ativan -) 0.5 mg PO DAILY PRN PRN Reason: WITHDRAWAL(CONT SUBST) Stop: 11/23/16 10:10 Methadone HCl (Dolophine -) 5 mg PO ONCE ONE Stop: 11/20/16 14:01 Nadolol (Corgard -) 40 mg PO DAILY [facility] Last Admin: 11/20/16 09:49 Dose: 40 mg Oxycodone HCl (Roxicodone -) 5 mg PO Q6H PRN PRN Reason: PAIN Last Admin: 11/20/16 03:29 Dose: 5 mg Pantoprazole Sodium (Protonix -) 40 mg PO DAILY [facility] Last Admin: 11/20/16 09:48 Dose: 40 mg Rifaximin (Xifaxan -) 550 mg PO BID [facility] Last Admin: 11/20/16 09:48 Dose: 550 mg Spironolactone (Aldactone -) 50 mg PO DAILY [facility] Last Admin: 11/20/16 09:48 Dose: 50 mg Thiamine HCl (Vitamin B1 -) 100 mg PO DAILY [facility] Last Admin: 11/20/16 09:48 Dose: 100 mg - Objective Vital Signs: Vital Signs Temperature 98.2 F 11/20/16 08:54 Pulse Rate 75 11/20/16 08:54 Respiratory Rate 20 11/20/16 08:54 Blood Pressure 107/56 11/20/16 08:54 O2 Sat by Pulse Oximetry (%) 95 11/15/16 20:14 Constitutional: Yes: No Distress, Calm Cardiovascular: Yes: Regular Rate and Rhythm Respiratory: Yes: Regular, CTA Bilaterally Gastrointestinal: Yes: Normal Bowel Sounds, Soft, Ascites, Distention Musculoskeletal: Yes: WNL Extremities: Yes: Other Wound/Incision: Yes: Dressing Dry and Intact Neurological: Yes: Alert, Oriented Psychiatric: Yes: Alert, Oriented Labs: CBC, BMP 11/20/16 07:30 11/20/16 07:30 INR, PTT INR 1.75 (0.82-1.09) H 11/14/16 08:35 Assessment/Plan Intoxication #Cellulitis #Hepatic encephalopathy/Cirrhosis #Hypokalemia #Lactic Acidosis plan will change abx and see how is the fever curve rest as per primary team
[2016-11-20] MEDS ORDERED: METHADONE HCL 10 MG TABLET PO ONE (14:00)
[2016-11-20] MEDS ORDERED: METHADONE HCL 5 MG TABLET PO ONE (14:00)
[2016-11-20] MEDS: CEFEPIME 1 GM in DEXTROSE 5%-WATER 100 ML IVPB SCH ×2 (15:41→17:17)
[2016-11-21] MEDS: CEFEPIME 1 GM in DEXTROSE 5%-WATER 100 ML IVPB SCH ×3 (01:32→18:46)
[2016-11-21] MEDS: oxyCODONE HCL 5 MG TABLET PO PRN (06:22)
[2016-11-21] MEDS: GABAPENTIN 100 MG CAPSULE (FP) PO SCH ×3 (06:22→21:38)
--- NOTE | 2016-11-21 07:51 | CON.GI ---
Consult Consult Specialty:: GI Referred by:: Primary team Reason for Consultation:: fever, esopaheal varices, ascites - History of Present Illness History of Present Illness: Chart reviewed. A 46 yo male with ongoing polysubstance abuse, liver cirrhosis, lethargy, portal hypertension and ascites. A CT a/p on this admission reveals moderate ascites and esophageal vertices. On Monday noted to spike temp 102 while on Unasyn for lower extremity infection triggering concern for SBP. The patient has been refusing diagnostic parasentesis. Unasyn was changed to cefipime. BUN, Cr remained normal. Tmax 99.7. Baseline lethargy has not worsened , or improved. The patient is on lactulose and rifaximin however there may have been an issue with taking PO medications while lethargic. Lactulose UT prescribed. No history of melena, hematochezia, hematemesis, dysphagia, SBP otherwise. Positive tox screen on admission. On exam this AM still lethargic, but arousable, complains of neck pain, asking for pain medication. - History Source History Provided By: Medical Record Limitations to Obtaining History: Other (poor historian, lethargic) - Past Medical History [employer]: Yes: Other Gastrointestinal: Yes: Ascites, Esophageal Varices, Other (Hepatitis, umbilical hernia) Hepatobiliary: Yes: Cirrhosis, Hepatitis C Psych: Yes: Addictions (alchohol Current, Heroin revcovery) Rheumatology: No: Fibromyalgia Dermatology: Yes: Other (rt lower extremity cellulitis) - Past Surgical History Past Surgical History: Yes: Colectomy - Alcohol/Substance Use Hx Alcohol Use: Yes Number of Drinks Daily: 3 History of Substance Use: reports: Heroin Date of Last Use: 11/14/16 (see tox report) - Smoking History Smoking history: Current some day smoker Have you smoked in the past 12 months: No Aproximately how many cigarettes per day: 3 If you are a former smoker, when did you quit?: 06/11/2013 - Social History Usual Living Arrangement: Alone Home Medications - Allergies Allergies/Adverse Reactions: Allergies Allergy/AdvReac Type Severity Reaction Status Date / Time No Known Allergies Allergy Verified 10/14/16 17:44 - Home Medications Home Medications: Ambulatory Orders Folic Acid 1 mg PO DAILY 11/14/16 Furosemide [Lasix -] 20 mg PO DAILY 11/14/16 Lactulose 10 gm PO BID 11/14/16 Pantoprazole Sodium [Protonix] 40 mg PO DAILY 11/14/16 Rifaximin [Xifaxan] 550 mg PO BID 11/14/16 Spironolactone 50 mg PO DAILY 11/14/16 Thiamine HCl [Vitamin B1] 100 mg NR DAILY 11/14/16 Family Disease History - Family Disease History Family History: Unremarkable Review of Systems Findings/Remarks: poor historian, lethargic. HP reviewed Physical Exam-GI Vital Signs: Vital Signs Temperature 98.9 F 11/21/16 02:00 Pulse Rate 75 11/21/16 02:00 Respiratory Rate 18 11/21/16 02:00 Blood Pressure 103/64 11/21/16 02:00 O2 Sat by Pulse Oximetry (%) 97 11/20/16 21:00 Constitutional: Yes: No Distress, Calm Eyes: No: Sclera Icterus HENT: Yes: Atraumatic, Normocephalic. No: Thrush Neck: Yes: Supple. No: Lymphadenopathy Cardiovascular: Yes: Regular Rate and Rhythm Respiratory: Yes: Regular Gastrointestinal Inspection: Yes: Ascites, Distention ...Auscultate: Yes: Normoactive Bowel Sounds ...Palpate: Yes: Soft. No: Firm/Rigid, Guarding, Hepatomegaly, Mass, Pulsatile Mass, Splenomegaly, Tenderness, Tenderness, Epigastium, Tenderness, Rebound ...Percussion: Yes: Fluid Wave, Tympanitic Neurological: Yes: Asterixis, Lethargy. No: Tremors, Unresponsive ...Motor Strength: WNL Psychiatric: No: Alert, Oriented, Agitated Labs: Vital Signs (72 hours) 11/18/16 11/18/16 11/18/16 10:00 22:00 23:27 Temperature 98.0 F 100.3 F H 98.9 F Pulse Rate 87 91 H 99 H Respiratory 20 20 12 Rate Blood Pressure 112/72 132/72 133/83 O2 Sat by Pulse Oximetry (%) 11/19/16 11/19/16 11/19/16 06:00 10:00 14:00 Temperature 99.4 F 98.8 F 98.7 F Pulse Rate 85 91 H Respiratory 20 14 Rate Blood Pressure 101/59 120/72 O2 Sat by Pulse Oximetry (%) 11/19/16 11/19/16 11/20/16 15:19 21:00 06:00 Temperature 100.6 F H 98.6 F Pulse Rate 76 78 68 Respiratory 14 20 Rate Blood Pressure 115/63 102/57 102/59 O2 Sat by Pulse Oximetry (%) 11/20/16 11/20/16 11/20/16 08:54 09:00 14:00 Temperature 98.2 F 99.7 F H Pulse Rate 75 78 Respiratory 20 18 Rate Blood Pressure 107/56 O2 Sat by Pulse 97 Oximetry (%) 11/20/16 11/20/16 11/21/16 20:00 21:00 02:00 Temperature 98.7 F 98.9 F Pulse Rate 78 75 Respiratory 19 18 18 Rate Blood Pressure 118/60 103/64 O2 Sat by Pulse 97 Oximetry (%) CMP Sodium 147 mmol/L (136-145) H 11/20/16 07:30 Potassium 3.9 mmol/L (3.5-5.1) 11/20/16 07:30 Chloride 116 mmol/L (98-107) H 11/20/16 07:30 Carbon Dioxide 26 mmol/L (21-32) 11/20/16 07:30 Anion Gap 5 (8-16) L 11/20/16 07:30 BUN 8 mg/dL (7-18) 11/20/16 07:30 Creatinine 0.5 mg/dL (0.7-1.3) L D 11/20/16 07:30 Creat Clearance w eGFR > 60 (>60) 11/19/16 07:25 Random Glucose 82 mg/dL (74-106) 11/20/16 07:30 Specific [place] Cancelled 11/14/16 02:00 Lactic Acid 1.3 mmol/L (0.4-2.0) 11/17/16 17:00 Calcium 7.8 mg/dL (8.5-10.1) L 11/20/16 07:30 Phosphorus 3.4 mg/dL (2.5-4.9) 11/18/16 06:45 Magnesium 1.8 mg/dL (1.8-2.4) 11/18/16 06:45 Iron 15 ug/dL (38-169) L 11/14/16 08:35 TIBC 214 ug/dL (250-450) L 11/14/16 08:35 Iron Saturation 7 % (15-55) L 11/14/16 08:35 Transferrin 188 mg/dL (200-370) L 11/14/16 08:35 Ferritin 17.514 ng/ml (16.4-293.9) 11/15/16 16:10 Total Bilirubin 1.4 mg/dL (0.2-1.0) H 11/19/16 07:25 Direct Bilirubin 0.9 mg/dL (0.0-0.2) H D 11/14/16 17:15 AST 29 U/L (15-37) 11/19/16 07:25 ALT 21 U/L (12-78) 11/19/16 07:25 Alkaline Phosphatase 97 U/L (45-117) 11/19/16 07:25 Ammonia 117.98 umol/L (11-32) H 11/17/16 17:00 Creatine Kinase 298 IU/L (39-308) 11/14/16 02:23 Creatine Kinase Index 0.7 % (0.0-5.0) 11/14/16 02:23 CK-MB (CK-2) 2.140 ng/mL (0.5-3.6) 11/14/16 02:23 Troponin I < 0.02 ng/ml (0.00-0.05) 11/14/16 02:23 Total Protein 5.9 g/dl (6.4-8.2) L 11/19/16 07:25 Albumin 1.6 g/dl (3.4-5.0) L 11/19/16 07:25 Vitamin B12 1016 pg/ml (180-914) H D 11/14/16 08:35 Serum Folate 18 ng/ml (3.1-17.5) H 11/14/16 08:35 CBC WBC 6.4 K/mm3 (4.0-10.0) 11/20/16 07:30 RBC 3.96 M/mm3 (4.00-5.60) L 11/20/16 07:30 Hgb 8.8 GM/dL (11.7-16.9) L D 11/20/16 07:30 Hct 29.2 % (35.4-49) L D 11/20/16 07:30 MCV 73.6 fl (80-96) L 11/20/16 07:30 MCH 22.2 pg (25.7-33.7) L 11/20/16 07:30 MCHC 30.1 g/dl (32.0-35.9) L 11/20/16 07:30 RDW 21.1 % (11.9-15.9) H 11/20/16 07:30 Plt Count 88 K/MM3 (134-434) L 11/20/16 07:30 MPV 8.3 fl (7.5-11.1) D 11/20/16 07:30 Neutrophils % 67.8 % (42.8-82.8) 11/20/16 07:30 Lymphocytes % 17.8 % (8-40) 11/20/16 07:30 Monocytes % 11.0 % (3.8-10.2) H 11/20/16 07:30 Eosinophils % 2.9 % (0-4.5) 11/20/16 07:30 Basophils % 0.5 % (0-2.0) 11/20/16 07:30 Hypochromia 1+ 11/18/16 06:45 Platelet Estimate Adequate (NORMAL) 11/14/16 01:22 Anisocytosis 2+ 11/18/16 06:45 Microcytosis 2+ 11/18/16 06:45 Morphology Comment 11/14/16 01:22 INR, PTT INR 1.75 (0.82-1.09) H 11/14/16 08:35 Microbiology 11/18/16 17:30 Blood - Peripheral Venous Blood Culture - Preliminary NO GROWTH OBTAINED AFTER 48 HOURS, INCUBATION TO CONTINUE FOR 3 DAYS. 11/18/16 17:30 Blood - Peripheral Venous Blood Culture - Preliminary NO GROWTH OBTAINED AFTER 48 HOURS, INCUBATION TO CONTINUE FOR 3 DAYS. 11/14/16 01:19 Blood - Peripheral Venous Blood Culture - Final NO GROWTH AFTER 5 DAYS INCUBATION 11/14/16 01:19 Blood - Peripheral Venous Blood Culture - Final NO GROWTH AFTER 5 DAYS INCUBATION 11/14/16 02:00 Urine - Urine Clean Catch Urine Culture - Final NO GROWTH OBTAINED Current Medications Generic Name Dose Route Start Last Admin Trade Name Freq PRN Reason Stop Dose Admin Ascorbic Acid 500 mg 11/14/16 10:00 11/20/16 09:48 Vitamin C - PO 500 mg DAILY KENDRICK Administration Collagenase 1 applic 11/14/16 19:45 11/20/16 10:07 Santyl - TP 1 applic DAILY KENDRICK Administration Ferrous Sulfate 325 mg 11/16/16 13:30 11/20/16 09:48 Feosol - PO 325 mg DAILY KENDRICK Administration Folic Acid 1 mg 11/14/16 10:00 11/20/16 09:48 Folic Acid - PO 1 mg DAILY KENDRICK Administration Furosemide 20 mg 11/14/16 17:45 11/20/16 09:49 Lasix - PO 20 mg DAILY KENDRICK Administration Gabapentin 100 mg 11/17/16 14:00 11/21/16 06:22 Neurontin - PO 100 mg TID KENDRICK Administration Cefepime HCl 1 gm/ Dextrose 100 mls @ 200 mls/hr 11/20/16 13:30 11/21/16 01:32 IVPB 200 mls/hr Q8H-IV KENDRICK Administration Lactulose 30 gm 11/16/16 22:00 11/20/16 21:54 Cephulac (Oral Use) PO Not Given QID KENDRICK Lorazepam 0.5 mg 11/21/16 10:11 Ativan - PO 11/23/16 10:10 DAILY PRN WITHDRAWAL(CONT SUBST) Nadolol 40 mg 11/19/16 10:00 11/20/16 09:49 Corgard - PO 40 mg DAILY KENDRICK Administration Pantoprazole Sodium 40 mg 11/14/16 10:00 11/20/16 09:48 Protonix - PO 40 mg DAILY KENDRICK Administration Rifaximin 550 mg 11/15/16 10:00 11/20/16 21:58 Xifaxan - PO 550 mg BID KENDRICK Administration Spironolactone 50 mg 11/14/16 17:45 11/20/16 09:48 Aldactone - PO 50 mg DAILY KENDRICK Administration Thiamine HCl 100 mg 11/14/16 10:00 11/20/16 09:48 Vitamin B1 - PO 100 mg DAILY KENDRICK Administration Imaging - Results X-ray: Report Reviewed Cat Scan: Report Reviewed Ultrasound: Report Reviewed Problem List - Problems (1) Ascites due to alcoholic cirrhosis Assessment/Plan: MELD 14. Liver disease with portal hypertension, esophageal varices (by CT) and ascites. Itz 102 fever on Monday. Tmax 99.7 Refusing diagnostic parasentesis, on cefepime now. Cr and BUN remain normal EGD was planned for this am, however the patent was not compliant with NPO orders. Reschedule to tomorrow morning. Strict NPO after midnight except medications.. If BUN, Cr remain stable in the next 2 days, consider increasing Aldactone to 50 bid and lasix to 20 bid. Maintain low salt diet. Code(s): K70.31 - ALCOHOLIC CIRRHOSIS OF LIVER WITH ASCITES (2) Portal hypertension with esophageal varices Assessment/Plan: Agree with nadolol pending EGD Maintain low salt diet Code(s): K76.6 - PORTAL HYPERTENSION I85.00 - ESOPHAGEAL VARICES WITHOUT BLEEDING (3) Liver cirrhosis Assessment/Plan: MELD 14 Code(s): K74.60 - UNSPECIFIED CIRRHOSIS OF LIVER Qualifiers: Hepatic cirrhosis type: alcoholic cirrhosis (4) Encephalopathy Assessment/Plan: Agree with lactulose and rifaximin Code(s): G93.40 - ENCEPHALOPATHY, UNSPECIFIED (5) Methadone dependence Code(s): F11.20 - OPIOID DEPENDENCE, UNCOMPLICATED (6) Alcohol abuse Code(s): F10.10 - ALCOHOL ABUSE, UNCOMPLICATED (7) Opioid dependence on agonist therapy Code(s): F11.20 - OPIOID DEPENDENCE, UNCOMPLICATED
--- NOTE | 2016-11-21 08:16 | PN ---
[facility] Progress Note (SOAP) Subjective: Patient c/o pain in Lower extremities, back of leg from ulcers, not sleeping because of pain Objective: VSS as per chart, labs reviewed Assessment: alcohol and opioid withdrawal sx, pain from ulcer Plan: symptomatic management of withdrawal, pain management
[2016-11-21 09:14] LABS: ANION GAP 9 (8-16); CALCIUM 7.2 mg/dL (8.5-10.1); CO2 23 mmol/L (21-32); GLUCOSE,RANDOM 79 mg/dL (74-106)
[2016-11-21 09:15] LABS: CREATININE 0.3 mg/dL (0.7-1.3)
[2016-11-21] MEDS ORDERED: CEFTRIAXONE 2 GM in DEXTROSE 5%-WATER 100 ML IVPB SCH (10:00)
[2016-11-21] MEDS ORDERED: LORazepam 0.5 MG TABLET PO PRN (10:11)
[2016-11-21] MEDS ORDERED: DEXTROSE 5%-WATER 100 ML IVPB ONE (10:27)
[2016-11-21] MEDS ORDERED: CEFEPIME HCL 1 GM VIAL (RESTRICTED TO ID) ONE (10:27)
[2016-11-21] MEDS ORDERED: PT OWN MED DRAWER 7, Y5N ONE (10:28)
[2016-11-21] MEDS: NADOLOL 40 MG TABLET (FP) PO SCH (10:30)
[2016-11-21] MEDS: SPIRONOLACTONE 25 MG TABLET (FP) PO SCH (10:31)
[2016-11-21] MEDS: PANTOPRAZOLE 40 MG TABLET (FP) PO SCH (10:31)
[2016-11-21] MEDS: FERROUS SO4 325 MG TABLET (FP) PO SCH (10:31)
[2016-11-21] MEDS: LACTULOSE 20 GM/30 ML UDC (FOR ORAL USE ONLY) PO SCH ×5 (10:31→21:38)
[2016-11-21] MEDS: THIAMINE HCL 100 MG TABLET (FP) PO SCH (10:31)
[2016-11-21] MEDS: ASCORBIC ACID 500 MG TABLET (FP) PO SCH (10:31)
[2016-11-21] MEDS: FUROSEMIDE 20 MG TABLET (FP) PO SCH (10:32)
[2016-11-21] MEDS: RIFAXIMIN 550 MG TABLET (UD) PO SCH ×2 (10:32→21:38)
[2016-11-21] MEDS: FOLIC ACID 1 MG TABLET (FP) PO SCH (10:32)
[2016-11-21] MEDS: COLLAGENASE CLOSTRIDIUM HIST. 30 GRAMS TUBE TP SCH (10:32)
[2016-11-21 11:20] LABS: INR 1.83 (0.82-1.09); PROTHROMBIN TIME (PATIENT) 20.4 SEC (9.98-11.88)
--- NOTE | 2016-11-21 13:45 | PN ---
Teaching Attending Note Name of Resident: Shanita Ying ATTENDING PHYSICIAN STATEMENT I saw and evaluated the patient. I reviewed the resident's note and discussed the case with the resident. I agree with the resident's findings and plan as documented. SUBJECTIVE: no fever or chills , has pain in R leg , has insomnia, had 2 BMs yesterday . No abd pain . OBJECTIVE: NAD , awake , alert, oriented x 3 MMM CV: RRR, 3/6 DM in LUSB. Lungs: CTAB Ext: ulceration of the R calf with bleeding tissue. Abd: soft, distended , Nl BS ,shifting dullness, no TTP , no hepatosplenomegaly. ASSESSMENT AND PLAN: 46 y/o man with h/o alcohol abuse, multisubstance abuse, cirrhosis, HCV, SBO s/ p Bowel resection , who presented with AMS. He was found to have acute encephalopathy. 1- AMS: could be due to hepatic encephalopathy , with component of metabolic encephalopathy and alcohol intoxication now back to base line - cont lactulose QID. - off benzos - off methadone - cont Rifaximin 2- Cirrhosis , with ascitis : concern for SBP. Treating empirically as he refused paracentesis - Cont cefepime day 1 /5 - Cont diuretics. can increase if Cr remains stable - Monitor renal function 3- RLE cellulitis with infected ulcers: improved - cefepime - chemical debridment 4- Thrombocytopeia: likely due to liver dz 5- Polysubstance abuse : - off alcohol detox -off methadone detox 6- Microcytic iron def anemia: - cont iron supp - Cont nadolol for variceal bleeding prophylaxis - EGD tomorrow DVT PX : hold heparin due to thrombocytopenia SCD on L ordered .
[2016-11-21] MEDS ORDERED: METHADONE HCL 5 MG TABLET PO ONE (14:00)
[2016-11-21] MEDS ORDERED: traMADol HCL 50 MG TABLET PO ONE (18:30)
--- NOTE | 2016-11-21 18:48 | PN ---
Progress Note, Physician History of Present Illness: patient stable no fevers noted - Current Medication List Current Medications: Active Medications Ascorbic Acid (Vitamin C -) 500 mg PO DAILY [facility] Last Admin: 11/21/16 10:31 Dose: 500 mg Collagenase (Santyl -) 1 applic TP DAILY [facility] Last Admin: 11/21/16 10:32 Dose: 1 applic Ferrous Sulfate (Feosol -) 325 mg PO DAILY [facility] Last Admin: 11/21/16 10:31 Dose: 325 mg Folic Acid (Folic Acid -) 1 mg PO DAILY [facility] Last Admin: 11/21/16 10:32 Dose: 1 mg Furosemide (Lasix -) 20 mg PO DAILY [facility] Last Admin: 11/21/16 10:32 Dose: 20 mg Gabapentin (Neurontin -) 100 mg PO TID [facility] Last Admin: 11/21/16 14:30 Dose: 100 mg Cefepime HCl 1 gm/ Dextrose 100 mls @ 200 mls/hr IVPB Q8H-IV [facility] Last Admin: 11/21/16 10:32 Dose: 200 mls/hr Lactulose (Cephulac (Oral Use)) 30 gm PO QID [facility] Last Admin: 11/21/16 18:31 Dose: Not Given Nadolol (Corgard -) 40 mg PO DAILY [facility] Last Admin: 11/21/16 10:30 Dose: 40 mg Pantoprazole Sodium (Protonix -) 40 mg PO DAILY [facility] Last Admin: 11/21/16 10:31 Dose: 40 mg Rifaximin (Xifaxan -) 550 mg PO BID [facility] Last Admin: 11/21/16 10:32 Dose: 550 mg Spironolactone (Aldactone -) 50 mg PO DAILY [facility] Last Admin: 11/21/16 10:31 Dose: 50 mg Thiamine HCl (Vitamin B1 -) 100 mg PO DAILY [facility] Last Admin: 11/21/16 10:31 Dose: 100 mg - Objective Vital Signs: Vital Signs Temperature 99.1 F 11/21/16 15:30 Pulse Rate 74 11/21/16 15:30 Respiratory Rate 19 11/21/16 15:30 Blood Pressure 106/65 11/21/16 15:30 O2 Sat by Pulse Oximetry (%) 97 11/20/16 21:00 Constitutional: Yes: No Distress, Calm Cardiovascular: Yes: Regular Rate and Rhythm Respiratory: Yes: Regular, CTA Bilaterally Gastrointestinal: Yes: Normal Bowel Sounds, Soft, Ascites Musculoskeletal: Yes: Other Extremities: Yes: Other Labs: CBC, BMP 11/20/16 07:30 11/21/16 07:40 INR, PTT INR 1.83 (0.82-1.09) H 11/21/16 10:48 Assessment/Plan Intoxication #Cellulitis #Hepatic encephalopathy/Cirrhosis #Hypokalemia #Lactic Acidosis plan patient doing well no new issues continue current mgmt continue watching
--- NOTE | 2016-11-21 19:03 | PN ---
Physical Exam: SUBJECTIVE: Patient seen and examined. No acute events overnight. says he had 2 bowel movements last night. Complains of pain on site of cellulitis. OBJECTIVE: Vital Signs Period Temp Pulse Resp BP Sys/Choi Pulse Ox Last 24 Hr 98.1 F-99.1 F 68-78 18-20 103-118/57-65 97 GENERAL: somnolent, lethargic, oriented x 3 HEAD: Normal with no signs of trauma. EYES: 1mm pupils, minimally reactive ENT: oropharynx clear without exudates, moist mucous membranes. NECK: supple. LUNGS: Breath sounds equal, clear to auscultation bilaterally, no wheezes, no crackles, no accessory muscle use. HEART: Regular rate and rhythm, S1, S2 with 4/6 crescendo-decrescendo murmur ABDOMEN:Soft, Distended, Ascites, normoactive bowel sounds, nontender EXTREMITIES: Dp pulses 2+, RLE ulceration, granulation, dry SKIN: Warm, dry, normal turgor, no rashes or lesions noted Laboratory Results - last 24 hr 11/21/16 11/21/16 07:40 10:48 PT with INR 20.40 H INR 1.83 H Sodium 139 Potassium 3.5 Chloride 107 Carbon Dioxide 23 Anion Gap 9 BUN 8 Creatinine 0.3 L D Random Glucose 79 Calcium 7.2 L Active Medications Generic Name Dose Route Start Last Admin Trade Name Freq PRN Reason Stop Dose Admin Ascorbic Acid 500 mg 11/14/16 10:00 11/21/16 10:31 Vitamin C - PO 500 mg DAILY [facility] Administration Collagenase 1 applic 11/14/16 19:45 11/21/16 10:32 Santyl - TP 1 applic DAILY [facility] Administration Ferrous Sulfate 325 mg 11/16/16 13:30 11/21/16 10:31 Feosol - PO 325 mg DAILY [facility] Administration Folic Acid 1 mg 11/14/16 10:00 11/21/16 10:32 Folic Acid - PO 1 mg DAILY [facility] Administration Furosemide 20 mg 11/14/16 17:45 11/21/16 10:32 Lasix - PO 20 mg DAILY [facility] Administration Gabapentin 100 mg 11/17/16 14:00 11/21/16 14:30 Neurontin - PO 100 mg TID [facility] Administration Cefepime HCl 1 gm/ Dextrose 100 mls @ 200 mls/hr 11/20/16 13:30 11/21/16 18:46 IVPB 200 mls/hr Q8H-IV [facility] Administration Lactulose 30 gm 11/16/16 22:00 11/21/16 18:47 Cephulac (Oral Use) PO 30 gm QID [facility] Administration Nadolol 40 mg 11/19/16 10:00 11/21/16 10:30 Corgard - PO 40 mg DAILY [facility] Administration Pantoprazole Sodium 40 mg 11/14/16 10:00 11/21/16 10:31 Protonix - PO 40 mg DAILY [facility] Administration Rifaximin 550 mg 11/15/16 10:00 11/21/16 10:32 Xifaxan - PO 550 mg BID [facility] Administration Spironolactone 50 mg 11/14/16 17:45 11/21/16 10:31 Aldactone - PO 50 mg DAILY [facility] Administration Thiamine HCl 100 mg 11/14/16 10:00 11/21/16 10:31 Vitamin B1 - PO 100 mg DAILY [facility] Administration ASSESSMENT/PLAN: #Acute toxic encephalopathy - Hyperammonemia vs Severe Sepsis due to RLE cellulitis -improved mental status, likely at baseline -distended abdomen, ascites -Cefepime day 1 -continue Lactulose 30mg q6 -continue rifaximin 550 PO BID -Duplex negative #Ascitis: -refused paracentesis -emperic coverage for SBP -Liver U/s and CT with moderate ascitis #RLE cellulitis - last wbc 5.7 -improved -multiple previous admissions for same problem -chronic, non-compliant -Continue santyl/xeroform, telfa with gauze and kerlix daily - ID on board -Cefepime day 02/17 #Polysubstance abuse -held librium- will monitor withdrawal symptoms -Stop Ativan today -off methadone -utox + for opiates, BZD, cocaine -thiamine -folate -will go to [facility] for detox and rehab once medically optimized -will monitor for worsening signs of withdrawal -should follow up with swatch paster outpatient -continue spirolactone, lasix, and rifaxamin #Cirrhosis -likely from ETOH vs. 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 -GI consulted for EGD eval -Nadolol started for variceal bleeding ppx -iron deficiency -monitor H&H -treat if hemoglobin <7 -cont iron supplements #Hypokalemia -resolved #FEN -Not on any fluids -WNL -Sodium controlled diet #DVT PPX -held (thrombocytopenia) Visit type - Emergency Visit Emergency Visit: Yes ED Registration Date: 11/14/16 Care time: The patient presented to the Emergency Department on the above date and was hospitalized for further evaluation of their emergent condition. - New Patient This patient is new to me today: No - Critical Care Critical Care patient: No
[2016-11-22] MEDS ORDERED: DEXTROSE 5%-WATER 100 ML IVPB ONE ×2 (01:11→11:07)
[2016-11-22] MEDS ORDERED: CEFEPIME HCL 1 GM VIAL (RESTRICTED TO ID) ONE ×2 (01:11→11:07)
[2016-11-22] MEDS: CEFEPIME 1 GM in DEXTROSE 5%-WATER 100 ML IVPB SCH ×3 (01:14→17:53)
[2016-11-22] MEDS: GABAPENTIN 100 MG CAPSULE (FP) PO SCH ×3 (05:52→21:31)
[2016-11-22] MEDS ORDERED: PROPOFOL 20 ML ONE ×2 (07:56)
[2016-11-22] MEDS ORDERED: LIDOCAINE HCL/PF 2% SDV 5ML VIAL ONE (07:56)
--- NOTE | 2016-11-22 07:58 | PN ---
Progress Note (short form) - Note Progress Note: Seen in endo. Awake and alert. Recalls having a procedure 2 years ago for what sounds like variceal banding. Problem List - Problems (1) Ascites due to alcoholic cirrhosis Code(s): K70.31 - ALCOHOLIC CIRRHOSIS OF LIVER WITH ASCITES (2) Portal hypertension with esophageal varices Code(s): K76.6 - PORTAL HYPERTENSION I85.00 - ESOPHAGEAL VARICES WITHOUT BLEEDING (3) Liver cirrhosis Code(s): K74.60 - UNSPECIFIED CIRRHOSIS OF LIVER Qualifiers: Hepatic cirrhosis type: alcoholic cirrhosis (4) Encephalopathy Code(s): G93.40 - ENCEPHALOPATHY, UNSPECIFIED (5) Methadone dependence Code(s): F11.20 - OPIOID DEPENDENCE, UNCOMPLICATED (6) Alcohol abuse Code(s): F10.10 - ALCOHOL ABUSE, UNCOMPLICATED (7) Opioid dependence on agonist therapy Code(s): F11.20 - OPIOID DEPENDENCE, UNCOMPLICATED
--- NOTE | 2016-11-22 09:03 | PROC ---
Endoscopy Procedure Endoscopy procedure completed. Please see scanned procedure report. EGD with esophageal variceal ligation. No immediate complications. Clear liquid diet ordered Soft diet staring tomorrow morning. Nadolol stopped
[2016-11-22 10:57] LABS: MCH 22.3 pg (25.7-33.7); MCHC 30.6 g/dl (32.0-35.9); MEAN CELL VOLUME 72.9 fl (80-96); MEAN PLT VOLUME 7.3 fl (7.5-11.1); PLATELET COUNT 101 K/MM3 (134-434); RDW 21.7 % (11.9-15.9); WHITE BLOOD COUNT 4.8 K/mm3 (4.0-10.0)
[2016-11-22] MEDS: LACTULOSE 20 GM/30 ML UDC (FOR ORAL USE ONLY) PO SCH ×4 (11:26→21:28)
[2016-11-22 11:33] LABS: ANION GAP 6 (8-16); CALCIUM 7.2 mg/dL (8.5-10.1); CO2 26 mmol/L (21-32); CREATININE 0.4 mg/dL (0.7-1.3); GLUCOSE,RANDOM 76 mg/dL (74-106)
[2016-11-22] MEDS: THIAMINE HCL 100 MG TABLET (FP) PO SCH (11:36)
[2016-11-22] MEDS: SPIRONOLACTONE 25 MG TABLET (FP) PO SCH (11:37)
[2016-11-22] MEDS: PANTOPRAZOLE 40 MG TABLET (FP) PO SCH (11:37)
[2016-11-22] MEDS: ASCORBIC ACID 500 MG TABLET (FP) PO SCH (11:37)
[2016-11-22] MEDS: FUROSEMIDE 20 MG TABLET (FP) PO SCH (11:37)
[2016-11-22] MEDS: COLLAGENASE CLOSTRIDIUM HIST. 30 GRAMS TUBE TP SCH (11:38)
[2016-11-22] MEDS: FERROUS SO4 325 MG TABLET (FP) PO SCH (11:38)
[2016-11-22] MEDS: RIFAXIMIN 550 MG TABLET (UD) PO SCH ×3 (11:39→21:31)
[2016-11-22] MEDS: FOLIC ACID 1 MG TABLET (FP) PO SCH (11:39)
--- NOTE | 2016-11-22 13:47 | PN ---
Progress Note, Physician History of Present Illness: patient post endoscopy no issues calm 99 - Current Medication List Current Medications: Active Medications Ascorbic Acid (Vitamin C -) 500 mg PO DAILY [facility] Last Admin: 11/22/16 11:37 Dose: 500 mg Collagenase (Santyl -) 1 applic TP DAILY [facility] Last Admin: 11/22/16 11:38 Dose: Not Given Ferrous Sulfate (Feosol -) 325 mg PO DAILY [facility] Last Admin: 11/22/16 11:38 Dose: 325 mg Folic Acid (Folic Acid -) 1 mg PO DAILY [facility] Last Admin: 11/22/16 11:39 Dose: 1 mg Furosemide (Lasix -) 20 mg PO DAILY [facility] Last Admin: 11/22/16 11:37 Dose: 20 mg Gabapentin (Neurontin -) 100 mg PO TID [facility] Last Admin: 11/22/16 05:52 Dose: 100 mg Cefepime HCl 1 gm/ Dextrose 100 mls @ 200 mls/hr IVPB Q8H-IV [facility] Last Admin: 11/22/16 11:37 Dose: 200 mls/hr Lactulose (Cephulac (Oral Use)) 30 gm PO QID [facility] Last Admin: 11/22/16 11:26 Dose: Not Given Pantoprazole Sodium (Protonix -) 40 mg PO DAILY [facility] Last Admin: 11/22/16 11:37 Dose: 40 mg Rifaximin (Xifaxan -) 550 mg PO BID [facility] Spironolactone (Aldactone -) 50 mg PO DAILY [facility] Last Admin: 11/22/16 11:37 Dose: 50 mg Thiamine HCl (Vitamin B1 -) 100 mg PO DAILY [facility] Last Admin: 11/22/16 11:36 Dose: 100 mg - Objective Vital Signs: Vital Signs Temperature 98.0 F 11/22/16 09:14 Pulse Rate 63 11/22/16 09:14 Respiratory Rate 20 11/22/16 09:14 Blood Pressure 103/56 11/22/16 09:14 O2 Sat by Pulse Oximetry (%) 100 11/22/16 09:14 Constitutional: Yes: No Distress, Calm Cardiovascular: Yes: Regular Rate and Rhythm Respiratory: Yes: Regular, CTA Bilaterally Gastrointestinal: Yes: Soft, Ascites Musculoskeletal: Yes: WNL Extremities: Yes: Other Wound/Incision: Yes: Dressing Dry and Intact, Other (wound healing well) Neurological: Yes: Alert Psychiatric: Yes: Alert, Oriented Labs: CBC, BMP 11/22/16 09:25 11/22/16 09:25 INR, PTT INR 1.83 (0.82-1.09) H 11/21/16 10:48 Assessment/Plan Intoxication #Cellulitis #Hepatic encephalopathy/Cirrhosis #Hypokalemia #Lactic Acidosis oesophageal varices plan patient doing well no new issues continue current mgmt continue watching post endoscopy
[2016-11-22] MEDS: NADOLOL 40 MG TABLET (FP) PO SCH (16:41)
[2016-11-22] MEDS ORDERED: PT OWN MED DRAWER 7, Y5N ONE (16:41)
--- NOTE | 2016-11-22 18:14 | PN ---
Physical Exam: SUBJECTIVE: Patient seen and examined. No acute events overnight. Did not have a bowel movement. Patient says he has chest pain that started today. OBJECTIVE: Vital Signs Period Temp Pulse Resp BP Sys/Choi Pulse Ox Last 24 Hr 98.0 F-99.0 F 63-77 18-20 98-111/56-90 96-100 GENERAL: mild distress, Alert, oriented x 3 HEAD: Normal with no signs of trauma. EYES: 1mm pupils, minimally reactive ENT: oropharynx clear without exudates, moist mucous membranes. NECK: supple. LUNGS: Breath sounds equal, clear to auscultation bilaterally, no wheezes, no crackles, no accessory muscle use. HEART: Regular rate and rhythm, S1, S2 with 4/6 crescendo-decrescendo murmur ABDOMEN:Soft, Distended (more than yesterday), Ascites, normoactive bowel sounds, nontender EXTREMITIES: Dp pulses 2+, RLE ulceration , granulation, dry (improved) SKIN: Warm, dry, normal turgor, no rashes or lesions noted Laboratory Results - last 24 hr 11/22/16 11/22/16 09:25 09:25 WBC 4.8 RBC 3.97 L Hgb 8.9 L Hct 29.0 L MCV 72.9 L MCH 22.3 L MCHC 30.6 L RDW 21.7 H Plt Count 101 L MPV 7.3 L D Sodium 137 Potassium 3.8 Chloride 105 Carbon Dioxide 26 Anion Gap 6 L BUN 7 Creatinine 0.4 L D Random Glucose 76 Calcium 7.2 L Active Medications Generic Name Dose Route Start Last Admin Trade Name Rafael PRN Reason Stop Dose Admin Ascorbic Acid 500 mg 11/14/16 10:00 11/22/16 11:37 Vitamin C - PO 500 mg DAILY [facility] Administration Collagenase 1 applic 11/14/16 19:45 11/22/16 11:38 Santyl - TP Not Given DAILY [facility] Ferrous Sulfate 325 mg 11/16/16 13:30 11/22/16 11:38 Feosol - PO 325 mg DAILY [facility] Administration Folic Acid 1 mg 11/14/16 10:00 11/22/16 11:39 Folic Acid - PO 1 mg DAILY [facility] Administration Furosemide 40 mg 11/22/16 16:46 Lasix - PO DAILY [facility] Gabapentin 100 mg 11/17/16 14:00 11/22/16 14:28 Neurontin - PO 100 mg TID [facility] Administration Cefepime HCl 1 gm/ Dextrose 100 mls @ 200 mls/hr 11/20/16 13:30 11/22/16 17:53 IVPB 200 mls/hr Q8H-IV [facility] Administration Lactulose 30 gm 11/16/16 22:00 11/22/16 17:52 Cephulac (Oral Use) PO Not Given QID [facility] Nadolol 40 mg 11/22/16 15:00 11/22/16 16:41 Corgard - PO 40 mg DAILY [facility] Administration Pantoprazole Sodium 40 mg 11/14/16 10:00 11/22/16 11:37 Protonix - PO 40 mg DAILY [facility] Administration Rifaximin 550 mg 11/22/16 11:45 11/22/16 14:28 Xifaxan - PO 550 mg BID [facility] Administration Spironolactone 50 mg 11/14/16 17:45 11/22/16 11:37 Aldactone - PO 50 mg DAILY [facility] Administration Thiamine HCl 100 mg 11/14/16 10:00 11/22/16 11:36 Vitamin B1 - PO 100 mg DAILY [facility] Administration ASSESSMENT/PLAN: #Acute toxic encephalopathy - Hyperammonemia vs Severe Sepsis due to RLE cellulitis -improved mental status, likely at baseline -distended abdomen, ascites -IV Antibiotics: Cefepime day 3 -continue Lactulose 30mg q6 -continue rifaximin 550 PO BID -Duplex negative #Ascites: -refused paracentesis -emperic coverage for SBP: Cefepime Day 3 -2 more days of IV antibiotics -Liver U/s and CT with moderate ascites -continue Nadolol #RLE cellulitis - last wbc 4.8 -improved -multiple previous admissions for same problem -chronic, non-compliant -Continue santyl/xeroform, telfa with gauze and kerlix daily - ID on board -Cefepime day 3 #Chest Pain -likely irritation after EGD -normal EKG #Polysubstance abuse -held librium- will monitor withdrawal symptoms -Stop Ativan today -off methadone -utox + for opiates, BZD, cocaine -thiamine -folate -will go to [facility] for detox and rehab once medically optimized -will monitor for worsening signs of withdrawal -should follow up with medical assistant outpatient -continue spirolactone, lasix, and rifaxamin #Cirrhosis -likely from ETOH vs. HCV -s/p EGD: EGD with esophageal varices without immediate complications. 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 -GI consulted for EGD eval -Nadolol started for variceal bleeding ppx -iron deficiency -monitor H&H -treat if hemoglobin <7 -cont iron supplements #Hypokalemia -resolved #FEN -Not on any fluids -WNL -Post EGD: Clear liquid diet today, soft diet tomorrow #DVT PPX -held (thrombocytopenia) Visit type - Emergency Visit Emergency Visit: Yes ED Registration Date: 11/14/16 Care time: The patient presented to the Emergency Department on the above date and was hospitalized for further evaluation of their emergent condition. - New Patient This patient is new to me today: No - Critical Care Critical Care patient: No
--- NOTE | 2016-11-22 18:45 | PN ---
Teaching Attending Note Name of Resident: Shanita Ying ATTENDING PHYSICIAN STATEMENT I saw and evaluated the patient. I reviewed the resident's note and discussed the case with the resident. I agree with the resident's findings and plan as documented. SUBJECTIVE: No fever or chills. has no abd pain. OBJECTIVE: NAD , awake , alert, oriented x 3 MMM CV: RRR, 3/6 DM in LUSB. Lungs: CTAB Ext: ulceration of the R calf with bleeding tissue. NO discharge Abd: soft, more distended today , Nl BS ,tympanic . no TTP , no hepatosplenomegaly. ASSESSMENT AND PLAN: 46 y/o man with h/o alcohol abuse, multisubstance abuse, cirrhosis, HCV, SBO s/ p Bowel resection , who presented with AMS. He was found to have acute encephalopathy. 1- AMS: could be due to hepatic encephalopathy , with component of metabolic encephalopathy and alcohol intoxication now back to base line - cont lactulose QID. - off benzos - off methadone - cont Rifaximin 2- Cirrhosis , with ascitis : concern for SBP. Treating empirically as he repeatedly refused paracentesis - Cont cefepime day 3/5 - Cont diuretics. will increase dose of lasix to 40 and later can increase spironolactone to BID - Monitor renal function - EGD today with varices, banded 3- RLE cellulitis with infected ulcers: improved - Cefepime - Chemical debridment 4- Thrombocytopeia: likely due to liver dz 5- Polysubstance abuse : - off alcohol detox - off methadone detox 6- Microcytic iron def anemia: - cont iron supp - Cont nadolol for variceal bleeding prophylaxis DVT PX : hold heparin due to thrombocytopenia will be ready for Dc when he finishes his IV abx , 2 more days
[2016-11-23] MEDS: CEFEPIME 1 GM in DEXTROSE 5%-WATER 100 ML IVPB SCH ×4 (01:43→21:22)
[2016-11-23] MEDS: GABAPENTIN 100 MG CAPSULE (FP) PO SCH ×3 (05:46→21:24)
--- NOTE | 2016-11-23 08:33 | PN ---
Progress Note, Physician History of Present Illness: No events. Comfortable. AXR - mild ileus. - Current Medication List Current Medications: Active Medications Ascorbic Acid (Vitamin C -) 500 mg PO DAILY [facility] Last Admin: 11/22/16 11:37 Dose: 500 mg Collagenase (Santyl -) 1 applic TP DAILY [facility] Last Admin: 11/22/16 11:38 Dose: Not Given Ferrous Sulfate (Feosol -) 325 mg PO DAILY [facility] Last Admin: 11/22/16 11:38 Dose: 325 mg Folic Acid (Folic Acid -) 1 mg PO DAILY [facility] Last Admin: 11/22/16 11:39 Dose: 1 mg Furosemide (Lasix -) 40 mg PO DAILY [facility] Gabapentin (Neurontin -) 100 mg PO TID [facility] Last Admin: 11/23/16 05:46 Dose: 100 mg Cefepime HCl 1 gm/ Dextrose 100 mls @ 200 mls/hr IVPB Q8H-IV [facility] Last Admin: 11/23/16 01:43 Dose: 200 mls/hr Lactulose (Cephulac (Oral Use)) 30 gm PO QID [facility] Last Admin: 11/22/16 21:28 Dose: Not Given Nadolol (Corgard -) 40 mg PO DAILY [facility] Last Admin: 11/22/16 16:41 Dose: 40 mg Pantoprazole Sodium (Protonix -) 40 mg PO DAILY [facility] Last Admin: 11/22/16 11:37 Dose: 40 mg Rifaximin (Xifaxan -) 550 mg PO BID [facility] Last Admin: 11/22/16 21:31 Dose: 550 mg Spironolactone (Aldactone -) 50 mg PO DAILY [facility] Last Admin: 11/22/16 11:37 Dose: 50 mg Thiamine HCl (Vitamin B1 -) 100 mg PO DAILY [facility] Last Admin: 11/22/16 11:36 Dose: 100 mg - Objective Vital Signs: Vital Signs Temperature 98.7 F 11/23/16 06:00 Pulse Rate 66 11/23/16 06:00 Respiratory Rate 18 11/23/16 06:00 Blood Pressure 104/59 11/23/16 06:00 O2 Sat by Pulse Oximetry (%) 97 11/22/16 20:24 Constitutional: Yes: No Distress, Calm Eyes: Yes: Conjunctiva Clear HENT: Yes: Atraumatic Neck: Yes: Supple Cardiovascular: Yes: Regular Rate and Rhythm Respiratory: Yes: Regular Gastrointestinal: Yes: Normal Bowel Sounds, Ascites, Distention. No: Melena, Palpable Mass, Pulsatile Mass, Rectal Bleeding, Tenderness, Tenderness, Epigastrium, Tenderness, Rebound, Vomiting Neurological: Yes: Lethargy (as before) Labs: CBC, BMP 11/22/16 09:25 11/22/16 09:25 INR, PTT INR 1.83 (0.82-1.09) H 11/21/16 10:48 - ....Imaging X-ray: Report Reviewed (ileus) Problem List - Problems (1) Ascites due to alcoholic cirrhosis Assessment/Plan: s/p esophageal varices ligation. No immediate complications, No events over night. No odynophagia, or dysphagia. monitor BMs, ectrolytes Advance diet to soft, 2 gm salt Continue PPI, Nadolol, lactulose, rifaximine, aldactone and lasix Need to establish outpatient follow up Code(s): K70.31 - ALCOHOLIC CIRRHOSIS OF LIVER WITH ASCITES (2) Portal hypertension with esophageal varices Code(s): K76.6 - PORTAL HYPERTENSION I85.00 - ESOPHAGEAL VARICES WITHOUT BLEEDING (3) Liver cirrhosis Code(s): K74.60 - UNSPECIFIED CIRRHOSIS OF LIVER Qualifiers: Hepatic cirrhosis type: alcoholic cirrhosis (4) Encephalopathy Code(s): G93.40 - ENCEPHALOPATHY, UNSPECIFIED (5) Methadone dependence Code(s): F11.20 - OPIOID DEPENDENCE, UNCOMPLICATED (6) Alcohol abuse Code(s): F10.10 - ALCOHOL ABUSE, UNCOMPLICATED (7) Opioid dependence on agonist therapy Code(s): F11.20 - OPIOID DEPENDENCE, UNCOMPLICATED
--- NOTE | 2016-11-23 08:43 | PN ---
Physical Exam: SUBJECTIVE: Patient seen and examined. No acute events overnight. Offers no new complaints today. OBJECTIVE: Vital Signs Period Temp Pulse Resp BP Sys/Choi Pulse Ox Last 24 Hr 97.9 F-98.9 F 63-80 18-20 103-140/56-90 96-100 GENERAL: mild distress, Alert, oriented x 3 HEAD: Normal with no signs of trauma. EYES: 1mm pupils, minimally reactive ENT: oropharynx clear without exudates, moist mucous membranes. NECK: supple. LUNGS: Breath sounds equal, clear to auscultation bilaterally, no wheezes, no crackles, no accessory muscle use. HEART: Regular rate and rhythm, S1, S2 with 4/6 crescendo-decrescendo murmur ABDOMEN:Soft, Distended (more than yesterday), Ascites, normoactive bowel sounds, nontender EXTREMITIES: Dp pulses 2+, RLE ulceration , granulation, dry (improved) SKIN: Warm, dry, normal turgor, no rashes or lesions noted Laboratory Results - last 24 hr 11/22/16 11/22/16 09:25 09:25 WBC 4.8 RBC 3.97 L Hgb 8.9 L Hct 29.0 L MCV 72.9 L MCH 22.3 L MCHC 30.6 L RDW 21.7 H Plt Count 101 L MPV 7.3 L D Sodium 137 Potassium 3.8 Chloride 105 Carbon Dioxide 26 Anion Gap 6 L BUN 7 Creatinine 0.4 L D Random Glucose 76 Calcium 7.2 L Active Medications Generic Name Dose Route Start Last Admin Trade Name Freq PRN Reason Stop Dose Admin Ascorbic Acid 500 mg 11/14/16 10:00 11/22/16 11:37 Vitamin C - PO 500 mg DAILY [facility] Administration Collagenase 1 applic 11/14/16 19:45 11/22/16 11:38 Santyl - TP Not Given DAILY [facility] Ferrous Sulfate 325 mg 11/16/16 13:30 11/22/16 11:38 Feosol - PO 325 mg DAILY [facility] Administration Folic Acid 1 mg 11/14/16 10:00 11/22/16 11:39 Folic Acid - PO 1 mg DAILY [facility] Administration Furosemide 40 mg 11/22/16 16:46 Lasix - PO DAILY [facility] Gabapentin 100 mg 11/17/16 14:00 11/23/16 05:46 Neurontin - PO 100 mg TID [facility] Administration Cefepime HCl 1 gm/ Dextrose 100 mls @ 200 mls/hr 11/20/16 13:30 11/23/16 01:43 IVPB 200 mls/hr Q8H-IV [facility] Administration Lactulose 30 gm 11/16/16 22:00 11/22/16 21:28 Cephulac (Oral Use) PO Not Given QID [facility] Nadolol 40 mg 11/22/16 15:00 11/22/16 16:41 Corgard - PO 40 mg DAILY [facility] Administration Pantoprazole Sodium 40 mg 11/14/16 10:00 11/22/16 11:37 Protonix - PO 40 mg DAILY [facility] Administration Rifaximin 550 mg 11/22/16 11:45 11/22/16 21:31 Xifaxan - PO 550 mg BID [facility] Administration Spironolactone 50 mg 11/14/16 17:45 11/22/16 11:37 Aldactone - PO 50 mg DAILY [facility] Administration Thiamine HCl 100 mg 11/14/16 10:00 11/22/16 11:36 Vitamin B1 - PO 100 mg DAILY [facility] Administration ASSESSMENT/PLAN: #Acute toxic encephalopathy - Hyperammonemia vs Severe Sepsis due to RLE cellulitis -improved mental status, likely at baseline -distended abdomen, ascites -IV Antibiotics: Cefepime day 4 -continue Lactulose 30mg q6 -continue rifaximin 550 PO BID -Duplex negative #Ascites: -refused paracentesis -emperic coverage for SBP: Cefepime Day 4 -2 more days of IV antibiotics -Liver U/s and CT with moderate ascites -continue Nadolol #RLE cellulitis - last wbc 4.8 -improved -multiple previous admissions for same problem -chronic, non-compliant -Continue santyl/xeroform, telfa with gauze and kerlix daily - ID on board -Cefepime day 4/5 -f/u arterial duplex #Chest Pain -resolved -likely irritation after EGD -normal EKG #Polysubstance abuse -held librium- will monitor withdrawal symptoms -Stop Ativan today -off methadone -utox + for opiates, BZD, cocaine -thiamine -folate -will go to [facility] for detox and rehab once medically optimized -will monitor for worsening signs of withdrawal -should follow up with security compliance engineer outpatient -continue spirolactone, lasix, and rifaxamin #Cirrhosis -likely from ETOH vs. HCV -s/p EGD: EGD with esophageal varices without immediate complications. 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 -GI consulted for EGD eval -Nadolol started for variceal bleeding ppx -iron deficiency -monitor H&H -treat if hemoglobin <7 -cont iron supplements #Hypokalemia -resolved #FEN -Not on any fluids -WNL -Post EGD: soft diet #DVT PPX -held (thrombocytopenia) Visit type - Emergency Visit Emergency Visit: Yes ED Registration Date: 11/14/16 Care time: The patient presented to the Emergency Department on the above date and was hospitalized for further evaluation of their emergent condition. - New Patient This patient is new to me today: No - Critical Care Critical Care patient: No
[2016-11-23] MEDS ORDERED: CEFEPIME HCL 1 GM VIAL (RESTRICTED TO ID) ONE ×2 (08:52→18:05)
[2016-11-23] MEDS ORDERED: DEXTROSE 5%-WATER 100 ML IVPB ONE ×2 (08:52→18:05)
[2016-11-23] MEDS: FUROSEMIDE 20 MG TABLET (FP) PO SCH ×2 (08:57→21:22)
[2016-11-23] MEDS: LACTULOSE 20 GM/30 ML UDC (FOR ORAL USE ONLY) PO SCH ×5 (08:57→21:24)
[2016-11-23] MEDS: THIAMINE HCL 100 MG TABLET (FP) PO SCH ×2 (08:57→21:22)
[2016-11-23] MEDS: SPIRONOLACTONE 25 MG TABLET (FP) PO SCH ×2 (08:58→21:21)
[2016-11-23] MEDS: RIFAXIMIN 550 MG TABLET (UD) PO SCH ×2 (09:00→21:24)
[2016-11-23] MEDS: FERROUS SO4 325 MG TABLET (FP) PO SCH (09:01)
[2016-11-23] MEDS: FOLIC ACID 1 MG TABLET (FP) PO SCH (09:01)
[2016-11-23] MEDS: ASCORBIC ACID 500 MG TABLET (FP) PO SCH (09:01)
[2016-11-23] MEDS: PANTOPRAZOLE 40 MG TABLET (FP) PO SCH (09:01)
[2016-11-23] MEDS: NADOLOL 40 MG TABLET (FP) PO SCH (10:07)
--- NOTE | 2016-11-23 12:00 | EKG ---
Test Reason : Blood Pressure : / mmHG Vent. Rate : 063 BPM Atrial Rate : 063 BPM P-R Int : 146 ms QRS Dur : 088 ms QT Int : 456 ms P-R-T Axes : -02 022 degrees QTc Int : 466 ms NORMAL SINUS RHYTHM NORMAL ECG WHEN COMPARED WITH ECG OF 14-NOV-2016 01:57, VENT. RATE HAS DECREASED BY 31 BPM Confirmed by TAMIE LLOYD, TOÑO ([id number]) on 11/23/2016 12:00:31 PM Referred By: Leila CAMPBELL Confirmed By:TOÑO WILLETT MD
--- NOTE | 2016-11-23 13:02 | PN ---
Teaching Attending Note Name of Resident: Shanita Ying ATTENDING PHYSICIAN STATEMENT I saw and evaluated the patient. I reviewed the resident's note and discussed the case with the resident. I agree with the resident's findings and plan as documented. SUBJECTIVE: Patient is comfortble with no acute distress. No fever or chills, no shortness of breath. OBJECTIVE: Vital Signs Temperature 98.7 F 11/23/16 06:00 Pulse Rate 66 11/23/16 06:00 Respiratory Rate 18 11/23/16 06:00 Blood Pressure 104/59 11/23/16 06:00 O2 Sat by Pulse Oximetry (%) 97 11/22/16 20:24 CBCD WBC 4.8 K/mm3 (4.0-10.0) 11/22/16 09:25 RBC 3.97 M/mm3 (4.00-5.60) L 11/22/16 09:25 Hgb 8.9 GM/dL (11.7-16.9) L 11/22/16 09:25 Hct 29.0 % (35.4-49) L 11/22/16 09:25 MCV 72.9 fl (80-96) L 11/22/16 09:25 MCHC 30.6 g/dl (32.0-35.9) L 11/22/16 09:25 RDW 21.7 % (11.9-15.9) H 11/22/16 09:25 Plt Count 101 K/MM3 (134-434) L 11/22/16 09:25 MPV 7.3 fl (7.5-11.1) L D 11/22/16 09:25 CMP Sodium 137 mmol/L (136-145) 11/22/16 09:25 Potassium 3.8 mmol/L (3.5-5.1) 11/22/16 09:25 Chloride 105 mmol/L (98-107) 11/22/16 09:25 Carbon Dioxide 26 mmol/L (21-32) 11/22/16 09:25 Anion Gap 6 (8-16) L 11/22/16 09:25 BUN 7 mg/dL (7-18) 11/22/16 09:25 Creatinine 0.4 mg/dL (0.7-1.3) L D 11/22/16 09:25 Creat Clearance w eGFR > 60 (>60) 11/19/16 07:25 Random Glucose 76 mg/dL (74-106) 11/22/16 09:25 Calcium 7.2 mg/dL (8.5-10.1) L 11/22/16 09:25 Total Bilirubin 1.4 mg/dL (0.2-1.0) H 11/19/16 07:25 AST 29 U/L (15-37) 11/19/16 07:25 ALT 21 U/L (12-78) 11/19/16 07:25 Alkaline Phosphatase 97 U/L (45-117) 11/19/16 07:25 Total Protein 5.9 g/dl (6.4-8.2) L 11/19/16 07:25 Albumin 1.6 g/dl (3.4-5.0) L 11/19/16 07:25 CARDIAC ENZYMES Creatine Kinase 298 IU/L (39-308) 11/14/16 02:23 Troponin I < 0.02 ng/ml (0.00-0.05) 11/14/16 02:23 Current Medications Generic Name Dose Route Start Last Admin Trade Name Shenq PRN Reason Stop Dose Admin Ascorbic Acid 500 mg 11/14/16 10:00 11/23/16 09:01 Vitamin C - PO 500 mg DAILY [facility] Administration Collagenase 1 applic 11/14/16 19:45 11/22/16 11:38 Santyl - TP Not Given DAILY [facility] Ferrous Sulfate 325 mg 11/16/16 13:30 11/23/16 09:01 Feosol - PO 325 mg DAILY [facility] Administration Folic Acid 1 mg 11/14/16 10:00 11/23/16 09:01 Folic Acid - PO 1 mg DAILY [facility] Administration Furosemide 40 mg 11/22/16 16:46 11/23/16 08:57 Lasix - PO 40 mg DAILY [facility] Administration Gabapentin 100 mg 11/17/16 14:00 11/23/16 05:46 Neurontin - PO 100 mg TID [facility] Administration Cefepime HCl 1 gm/ Dextrose 100 mls @ 200 mls/hr 11/20/16 13:30 11/23/16 08:56 IVPB 200 mls/hr Q8H-IV [facility] Administration Lactulose 30 gm 11/16/16 22:00 11/23/16 08:57 Cephulac (Oral Use) PO 30 gm QID [facility] Administration Nadolol 40 mg 11/22/16 15:00 11/23/16 10:07 Corgard - PO 40 mg DAILY [facility] Administration Pantoprazole Sodium 40 mg 11/14/16 10:00 11/23/16 09:01 Protonix - PO 40 mg DAILY [facility] Administration Rifaximin 550 mg 11/22/16 11:45 11/23/16 09:00 Xifaxan - PO 550 mg BID K[facility] Administration Spironolactone 50 mg 11/14/16 17:45 11/23/16 08:58 Aldactone - PO 50 mg DAILY K[facility] Administration Thiamine HCl 100 mg 11/14/16 10:00 11/23/16 08:57 Vitamin B1 - PO 100 mg DAILY [facility] Administration Home Medications Medication Instructions Recorded Folic Acid 1 mg PO DAILY 11/14/16 Furosemide [Lasix -] 20 mg PO DAILY 11/14/16 Lactulose 10 gm PO BID 11/14/16 Pantoprazole Sodium [Protonix] 40 mg PO DAILY 11/14/16 Rifaximin [Xifaxan] 550 mg PO BID 11/14/16 Spironolactone 50 mg PO DAILY 11/14/16 Thiamine HCl [Vitamin B1] 100 mg NR DAILY 11/14/16 PE: per resident's note ASSESSMENT AND PLAN: 46 y/o man with h/o alcohol abuse, multisubstance abuse, cirrhosis, HCV, SBO s/ p Bowel resection , who presented with AMS. He was found to have acute encephalopathy. # s/p AMS: back to his baseline. due to hepatic encephalopathy with metabolic encephalopathy and alcohol intoxication continue his meds. # Cirrhosis with ascitis : was started on IV antibiotic Cefepime day 4/5 for possible SBP. Treating empirically as he repeatedly refused paracentesis s/p EGD today with varices, banded # RLE cellulitis with infected ulcers: improved on IV Cefepime , on santyl improved , will start him silvadene crm. # Thrombocytopeia: likely due to liver dz # Polysubstance abuse :s/p alcohol detox and methadone detox # Microcytic iron def anemia: cont iron supp , Cont nadolol for variceal bleeding prophylaxis DVT PX : hold heparin due to thrombocytopenia discharge in am.
--- NOTE | 2016-11-23 13:46 | PN ---
Progress Note, Physician History of Present Illness: patient post endoscopy no issues c/o of pain - Current Medication List Current Medications: Active Medications Ascorbic Acid (Vitamin C -) 500 mg PO DAILY [facility] Last Admin: 11/23/16 09:01 Dose: 500 mg Collagenase (Santyl -) 1 applic TP DAILY [facility] Last Admin: 11/22/16 11:38 Dose: Not Given Ferrous Sulfate (Feosol -) 325 mg PO DAILY [facility] Last Admin: 11/23/16 09:01 Dose: 325 mg Folic Acid (Folic Acid -) 1 mg PO DAILY [facility] Last Admin: 11/23/16 09:01 Dose: 1 mg Furosemide (Lasix -) 40 mg PO DAILY [facility] Last Admin: 11/23/16 08:57 Dose: 40 mg Gabapentin (Neurontin -) 100 mg PO TID [facility] Last Admin: 11/23/16 05:46 Dose: 100 mg Cefepime HCl 1 gm/ Dextrose 100 mls @ 200 mls/hr IVPB Q8H-IV [facility] Last Admin: 11/23/16 08:56 Dose: 200 mls/hr Lactulose (Cephulac (Oral Use)) 30 gm PO QID [facility] Last Admin: 11/23/16 08:57 Dose: 30 gm Nadolol (Corgard -) 40 mg PO DAILY [facility] Last Admin: 11/23/16 10:07 Dose: 40 mg Pantoprazole Sodium (Protonix -) 40 mg PO DAILY [facility] Last Admin: 11/23/16 09:01 Dose: 40 mg Rifaximin (Xifaxan -) 550 mg PO BID [facility] Last Admin: 11/23/16 09:00 Dose: 550 mg Spironolactone (Aldactone -) 50 mg PO DAILY [facility] Last Admin: 11/23/16 08:58 Dose: 50 mg Thiamine HCl (Vitamin B1 -) 100 mg PO DAILY [facility] Last Admin: 11/23/16 08:57 Dose: 100 mg - Objective Vital Signs: Vital Signs Temperature 98.7 F 11/23/16 06:00 Pulse Rate 66 11/23/16 06:00 Respiratory Rate 18 11/23/16 06:00 Blood Pressure 104/59 11/23/16 06:00 O2 Sat by Pulse Oximetry (%) 97 11/22/16 20:24 Constitutional: Yes: Calm, Mild Distress Cardiovascular: Yes: Regular Rate and Rhythm Respiratory: Yes: Regular, CTA Bilaterally Gastrointestinal: Yes: Ascites, Distention Musculoskeletal: Yes: WNL Extremities: Yes: Other Wound/Incision: Yes: Dressing Dry and Intact, Other (cellulitis resolved) Labs: CBC, BMP 11/22/16 09:25 11/22/16 09:25 INR, PTT INR 1.83 (0.82-1.09) H 11/21/16 10:48 Assessment/Plan Intoxication #Cellulitis #Hepatic encephalopathy/Cirrhosis #Hypokalemia #Lactic Acidosis oesophageal varices plan patient doing well no new issues should try to do paracentesis i am planning to stop his abx in day or so
[2016-11-23] MEDS: COLLAGENASE CLOSTRIDIUM HIST. 30 GRAMS TUBE TP SCH (18:21)
[2016-11-23] MEDS ORDERED: ACETAMINOPHEN 325 MG TABLET (FP) PO ONE (18:35)
[2016-11-24 00:07] LABS: HEP B SURFACE AB Reactive (.)
[2016-11-24] MEDS ORDERED: DEXTROSE 5%-WATER 100 ML IVPB ONE ×2 (01:29→09:31)
[2016-11-24] MEDS ORDERED: CEFEPIME HCL 1 GM VIAL (RESTRICTED TO ID) ONE ×2 (01:29→09:31)
[2016-11-24] MEDS: CEFEPIME 1 GM in DEXTROSE 5%-WATER 100 ML IVPB SCH ×2 (01:39→09:35)
[2016-11-24] MEDS: GABAPENTIN 100 MG CAPSULE (FP) PO SCH ×2 (05:32→14:40)
[2016-11-24 08:46] LABS: MCH 22.7 pg (25.7-33.7); MCHC 31.2 g/dl (32.0-35.9); MEAN CELL VOLUME 72.9 fl (80-96); MEAN PLT VOLUME 8.4 fl (7.5-11.1); PLATELET COUNT 94 K/MM3 (134-434); RDW 22.1 % (11.9-15.9)
--- NOTE | 2016-11-24 08:59 | PN ---
Progress Note, Physician History of Present Illness: No events overnight - Current Medication List Current Medications: Active Medications Ascorbic Acid (Vitamin C -) 500 mg PO DAILY [facility] Last Admin: 11/23/16 09:01 Dose: 500 mg Ferrous Sulfate (Feosol -) 325 mg PO DAILY [facility] Last Admin: 11/23/16 09:01 Dose: 325 mg Folic Acid (Folic Acid -) 1 mg PO DAILY [facility] Last Admin: 11/23/16 09:01 Dose: 1 mg Furosemide (Lasix -) 40 mg PO DAILY [facility] Last Admin: 11/23/16 21:22 Dose: Not Given Gabapentin (Neurontin -) 100 mg PO TID [facility] Last Admin: 11/24/16 05:32 Dose: 100 mg Cefepime HCl 1 gm/ Dextrose 100 mls @ 200 mls/hr IVPB Q8H-IV [facility] Last Admin: 11/24/16 01:39 Dose: 200 mls/hr Lactulose (Cephulac (Oral Use)) 30 gm PO QID [facility] Last Admin: 11/23/16 21:24 Dose: Not Given Nadolol (Corgard -) 40 mg PO DAILY [facility] Last Admin: 11/23/16 10:07 Dose: 40 mg Pantoprazole Sodium (Protonix -) 40 mg PO DAILY [facility] Last Admin: 11/23/16 09:01 Dose: 40 mg Rifaximin (Xifaxan -) 550 mg PO BID [facility] Last Admin: 11/23/16 21:24 Dose: 550 mg Silver Sulfadiazine (Silvadene -) 1 applic TP DAILY [facility] Spironolactone (Aldactone -) 50 mg PO DAILY [facility] Last Admin: 11/23/16 21:21 Dose: Not Given Thiamine HCl (Vitamin B1 -) 100 mg PO DAILY [facility] Last Admin: 11/23/16 21:22 Dose: Not Given - Objective Vital Signs: Vital Signs Temperature 98.9 F 11/24/16 06:00 Pulse Rate 62 11/24/16 06:00 Respiratory Rate 20 11/24/16 06:00 Blood Pressure 90/52 11/24/16 06:00 O2 Sat by Pulse Oximetry (%) 97 11/23/16 21:00 Constitutional: Yes: No Distress, Calm Eyes: Yes: Conjunctiva Clear Respiratory: Yes: Regular Gastrointestinal: Yes: Normal Bowel Sounds, Soft, Ascites, Distention. No: Melena, Rectal Bleeding, Tenderness, Tenderness, Epigastrium, Tenderness, Rebound Integumentary: No: Jaundice Neurological: Yes: Alert, Lethargy (no changes from baseline) Psychiatric: No: Agitated Labs: INR, PTT INR 1.83 (0.82-1.09) H 11/21/16 10:48 Laboratory Results - last 24 hr 11/22/16 11/24/16 09:25 07:50 WBC 4.0 RBC 3.93 L Hgb 8.9 L Hct 28.6 L MCV 72.9 L MCH 22.7 L MCHC 31.2 L RDW 22.1 H Plt Count 94 L MPV 8.4 D Hep A IgM Ab Confirm Negative Hepatitis A Ab Total Positive H Hep Bs Antigen Negative Hep Bs Antibody Reactive Hep B Core Total Ab Positive H CMP Sodium 137 mmol/L (136-145) 11/22/16 09:25 Potassium 3.8 mmol/L (3.5-5.1) 11/22/16 09:25 Chloride 105 mmol/L (98-107) 11/22/16 09:25 Carbon Dioxide 26 mmol/L (21-32) 11/22/16 09:25 Anion Gap 6 (8-16) L 11/22/16 09:25 BUN 7 mg/dL (7-18) 11/22/16 09:25 Creatinine 0.4 mg/dL (0.7-1.3) L D 11/22/16 09:25 Creat Clearance w eGFR > 60 (>60) 11/19/16 07:25 Random Glucose 76 mg/dL (74-106) 11/22/16 09:25 Specific [place] Cancelled 11/14/16 02:00 Lactic Acid 1.3 mmol/L (0.4-2.0) 11/17/16 17:00 Calcium 7.2 mg/dL (8.5-10.1) L 11/22/16 09:25 Phosphorus 3.4 mg/dL (2.5-4.9) 11/18/16 06:45 Magnesium 1.8 mg/dL (1.8-2.4) 11/18/16 06:45 Iron 15 ug/dL (38-169) L 11/14/16 08:35 TIBC 214 ug/dL (250-450) L 11/14/16 08:35 Iron Saturation 7 % (15-55) L 11/14/16 08:35 Transferrin 188 mg/dL (200-370) L 11/14/16 08:35 Ferritin 17.514 ng/ml (16.4-293.9) 11/15/16 16:10 Total Bilirubin 1.4 mg/dL (0.2-1.0) H 11/19/16 07:25 Direct Bilirubin 0.9 mg/dL (0.0-0.2) H D 11/14/16 17:15 AST 29 U/L (15-37) 11/19/16 07:25 ALT 21 U/L (12-78) 11/19/16 07:25 Alkaline Phosphatase 97 U/L (45-117) 11/19/16 07:25 Ammonia 117.98 umol/L (11-32) H 11/17/16 17:00 Creatine Kinase 298 IU/L (39-308) 11/14/16 02:23 Creatine Kinase Index 0.7 % (0.0-5.0) 11/14/16 02:23 CK-MB (CK-2) 2.140 ng/mL (0.5-3.6) 11/14/16 02:23 Troponin I < 0.02 ng/ml (0.00-0.05) 11/14/16 02:23 Total Protein 5.9 g/dl (6.4-8.2) L 11/19/16 07:25 Albumin 1.6 g/dl (3.4-5.0) L 11/19/16 07:25 Vitamin B12 1016 pg/ml (180-914) H D 11/14/16 08:35 Serum Folate 18 ng/ml (3.1-17.5) H 11/14/16 08:35 Home Medication List Medication Instructions Recorded Confirmed Type Folic Acid 1 mg PO DAILY 11/14/16 11/14/16 History Furosemide [Lasix -] 20 mg PO DAILY 11/14/16 11/14/16 History Lactulose 10 gm PO BID 11/14/16 11/14/16 History Pantoprazole Sodium [Protonix] 40 mg PO DAILY 11/14/16 11/14/16 History Rifaximin [Xifaxan] 550 mg PO BID 11/14/16 11/14/16 History Spironolactone 50 mg PO DAILY 11/14/16 11/14/16 History Thiamine HCl [Vitamin B1] 100 mg NR DAILY 11/14/16 11/14/16 History Active Medications Generic Name Dose Route Start Last Admin Trade Name Rafael PRN Reason Stop Dose Admin Ascorbic Acid 500 mg 11/14/16 10:00 11/23/16 09:01 Vitamin C - PO 500 mg DAILY [facility] Administration Ferrous Sulfate 325 mg 11/16/16 13:30 11/23/16 09:01 Feosol - PO 325 mg DAILY [facility] Administration Folic Acid 1 mg 11/14/16 10:00 11/23/16 09:01 Folic Acid - PO 1 mg DAILY [facility] Administration Furosemide 40 mg 11/22/16 16:46 11/23/16 21:22 Lasix - PO Not Given DAILY [facility] Gabapentin 100 mg 11/17/16 14:00 11/24/16 05:32 Neurontin - PO 100 mg TID [facility] Administration Cefepime HCl 1 gm/ Dextrose 100 mls @ 200 mls/hr 11/20/16 13:30 11/24/16 01:39 IVPB 200 mls/hr Q8H-IV [facility] Administration Lactulose 30 gm 11/16/16 22:00 11/23/16 21:24 Cephulac (Oral Use) PO Not Given QID [facility] Nadolol 40 mg 11/22/16 15:00 11/23/16 10:07 Corgard - PO 40 mg DAILY [facility] Administration Pantoprazole Sodium 40 mg 11/14/16 10:00 11/23/16 09:01 Protonix - PO 40 mg DAILY [facility] Administration Rifaximin 550 mg 11/22/16 11:45 11/23/16 21:24 Xifaxan - PO 550 mg BID [facility] Administration Silver Sulfadiazine 1 applic 11/24/16 10:00 Silvadene - TP DAILY [facility] Spironolactone 50 mg 11/14/16 17:45 11/23/16 21:21 Aldactone - PO Not Given DAILY [facility] Thiamine HCl 100 mg 11/14/16 10:00 11/23/16 21:22 Vitamin B1 - PO Not Given DAILY [facility] Problem List - Problems (1) Ascites due to alcoholic cirrhosis Assessment/Plan: s/p esophageal varices ligation. No immediate complications, No events over night. No odynophagia, or dysphagia. monitor BMs, ectrolytes diet soft, 2 gm salt Continue PPI, Nadolol, lactulose, rifaximine, aldactone and lasix Need to establish outpatient follow up Code(s): K70.31 - ALCOHOLIC CIRRHOSIS OF LIVER WITH ASCITES (2) Portal hypertension with esophageal varices Code(s): K76.6 - PORTAL HYPERTENSION I85.00 - ESOPHAGEAL VARICES WITHOUT BLEEDING (3) Liver cirrhosis Code(s): K74.60 - UNSPECIFIED CIRRHOSIS OF LIVER Qualifiers: Hepatic cirrhosis type: alcoholic cirrhosis (4) Encephalopathy Code(s): G93.40 - ENCEPHALOPATHY, UNSPECIFIED (5) Methadone dependence Code(s): F11.20 - OPIOID DEPENDENCE, UNCOMPLICATED (6) Alcohol abuse Code(s): F10.10 - ALCOHOL ABUSE, UNCOMPLICATED (7) Opioid dependence on agonist therapy Code(s): F11.20 - OPIOID DEPENDENCE, UNCOMPLICATED (8) Ileus, unspecified Assessment/Plan: hab bms yesterday and tolerating po w/o symptoms. Code(s): K56.7 - ILEUS, UNSPECIFIED
[2016-11-24] MEDS ORDERED: PT OWN MED DRAWER 7, Y5N ONE (09:31)
[2016-11-24] MEDS: FOLIC ACID 1 MG TABLET (FP) PO SCH (09:34)
[2016-11-24] MEDS: ASCORBIC ACID 500 MG TABLET (FP) PO SCH (09:34)
[2016-11-24] MEDS: PANTOPRAZOLE 40 MG TABLET (FP) PO SCH (09:34)
[2016-11-24] MEDS: RIFAXIMIN 550 MG TABLET (UD) PO SCH (09:34)
[2016-11-24] MEDS: FERROUS SO4 325 MG TABLET (FP) PO SCH (09:34)
[2016-11-24] MEDS: NADOLOL 40 MG TABLET (FP) PO SCH (09:35)
[2016-11-24] MEDS: FUROSEMIDE 20 MG TABLET (FP) PO SCH (09:35)
[2016-11-24] MEDS: SPIRONOLACTONE 25 MG TABLET (FP) PO SCH (09:35)
[2016-11-24] MEDS: THIAMINE HCL 100 MG TABLET (FP) PO SCH (09:36)
[2016-11-24] MEDS: LACTULOSE 20 GM/30 ML UDC (FOR ORAL USE ONLY) PO SCH ×2 (09:36→13:11)
[2016-11-24] MEDS ORDERED: SILVER SULFADIAZINE 1% TOP CREAM 50 GM JAR TP SCH (10:00)
[2016-11-24 11:05] LABS: ANION GAP 8 (8-16); CALCIUM 7.5 mg/dL (8.5-10.1); CO2 25 mmol/L (21-32); CREATININE 0.5 mg/dL (0.7-1.3); GLUCOSE,RANDOM 73 mg/dL (74-106)
[2016-11-24 12:32] VITALS: BP 105/61; PULSE 64; TEMP 97.9
--- NOTE | 2016-11-24 14:22 | PN ---
Progress Note, Physician History of Present Illness: patient stable no new issues - Current Medication List Current Medications: Active Medications Ascorbic Acid (Vitamin C -) 500 mg PO DAILY [facility] Last Admin: 11/24/16 09:34 Dose: 500 mg Ferrous Sulfate (Feosol -) 325 mg PO DAILY [facility] Last Admin: 11/24/16 09:34 Dose: 325 mg Folic Acid (Folic Acid -) 1 mg PO DAILY [facility] Last Admin: 11/24/16 09:34 Dose: 1 mg Furosemide (Lasix -) 40 mg PO DAILY [facility] Last Admin: 11/24/16 09:35 Dose: 40 mg Gabapentin (Neurontin -) 100 mg PO TID [facility] Last Admin: 11/24/16 05:32 Dose: 100 mg Cefepime HCl 1 gm/ Dextrose 100 mls @ 200 mls/hr IVPB Q8H-IV [facility] Last Admin: 11/24/16 09:35 Dose: 200 mls/hr Lactulose (Cephulac (Oral Use)) 30 gm PO QID [facility] Last Admin: 11/24/16 13:11 Dose: Not Given Nadolol (Corgard -) 40 mg PO DAILY [facility] Last Admin: 11/24/16 09:35 Dose: 40 mg Pantoprazole Sodium (Protonix -) 40 mg PO DAILY [facility] Last Admin: 11/24/16 09:34 Dose: 40 mg Potassium Chloride (K-Dur -) 40 meq PO ONCE ONE Stop: 11/24/16 14:01 Rifaximin (Xifaxan -) 550 mg PO BID [facility] Last Admin: 11/24/16 09:34 Dose: 550 mg Silver Sulfadiazine (Silvadene -) 1 applic TP DAILY [facility] Last Admin: 11/24/16 09:49 Dose: 1 applic Spironolactone (Aldactone -) 50 mg PO DAILY [facility] Last Admin: 11/24/16 09:35 Dose: 50 mg Thiamine HCl (Vitamin B1 -) 100 mg PO DAILY [facility] Last Admin: 11/24/16 09:36 Dose: 100 mg - Objective Vital Signs: Vital Signs Temperature 97.9 F 11/24/16 08:00 Pulse Rate 64 11/24/16 08:00 Respiratory Rate 20 11/24/16 08:00 Blood Pressure 105/61 11/24/16 08:00 O2 Sat by Pulse Oximetry (%) 97 11/24/16 08:00 Constitutional: Yes: No Distress, Calm Cardiovascular: Yes: Regular Rate and Rhythm Respiratory: Yes: Regular, CTA Bilaterally Gastrointestinal: Yes: Soft, Ascites Musculoskeletal: Yes: WNL Extremities: Yes: Other Wound/Incision: Yes: Dressing Dry and Intact Neurological: Yes: Alert, Oriented Psychiatric: Yes: Alert, Oriented Labs: CBC, BMP 11/24/16 07:50 11/24/16 07:50 INR, PTT INR 1.83 (0.82-1.09) H 11/21/16 10:48 Assessment/Plan Intoxication #Cellulitis #Hepatic encephalopathy/Cirrhosis #Hypokalemia #Lactic Acidosis oesophageal varices plan patient doing well no new issues should try to do paracentesis will stop abx wound care
--- NOTE | 2016-11-24 14:24 | PN ---
Teaching Attending Note Name of Resident: Shantia Ying ATTENDING PHYSICIAN STATEMENT I saw and evaluated the patient. I reviewed the resident's note and discussed the case with the resident. I agree with the resident's findings and plan as documented. SUBJECTIVE: Comfortable with no acute distress, no shortness of breath, wants to go home. OBJECTIVE: Vital Signs Temperature 97.9 F 11/24/16 08:00 Pulse Rate 64 11/24/16 08:00 Respiratory Rate 20 11/24/16 08:00 Blood Pressure 105/61 11/24/16 08:00 O2 Sat by Pulse Oximetry (%) 97 11/24/16 08:00 CBCD WBC 4.0 K/mm3 (4.0-10.0) 11/24/16 07:50 RBC 3.93 M/mm3 (4.00-5.60) L 11/24/16 07:50 Hgb 8.9 GM/dL (11.7-16.9) L 11/24/16 07:50 Hct 28.6 % (35.4-49) L 11/24/16 07:50 MCV 72.9 fl (80-96) L 11/24/16 07:50 MCHC 31.2 g/dl (32.0-35.9) L 11/24/16 07:50 RDW 22.1 % (11.9-15.9) H 11/24/16 07:50 Plt Count 94 K/MM3 (134-434) L 11/24/16 07:50 MPV 8.4 fl (7.5-11.1) D 11/24/16 07:50 CMP Sodium 142 mmol/L (136-145) 11/24/16 07:50 Potassium 3.3 mmol/L (3.5-5.1) L 11/24/16 07:50 Chloride 109 mmol/L (98-107) H 11/24/16 07:50 Carbon Dioxide 25 mmol/L (21-32) 11/24/16 07:50 Anion Gap 8 (8-16) 11/24/16 07:50 BUN 4 mg/dL (7-18) L D 11/24/16 07:50 Creatinine 0.5 mg/dL (0.7-1.3) L D 11/24/16 07:50 Creat Clearance w eGFR > 60 (>60) 11/19/16 07:25 Random Glucose 73 mg/dL (74-106) L 11/24/16 07:50 Calcium 7.5 mg/dL (8.5-10.1) L 11/24/16 07:50 Total Bilirubin 1.4 mg/dL (0.2-1.0) H 11/19/16 07:25 AST 29 U/L (15-37) 11/19/16 07:25 ALT 21 U/L (12-78) 11/19/16 07:25 Alkaline Phosphatase 97 U/L (45-117) 11/19/16 07:25 Total Protein 5.9 g/dl (6.4-8.2) L 11/19/16 07:25 Albumin 1.6 g/dl (3.4-5.0) L 11/19/16 07:25 CARDIAC ENZYMES Creatine Kinase 298 IU/L (39-308) 11/14/16 02:23 Troponin I < 0.02 ng/ml (0.00-0.05) 11/14/16 02:23 Current Medications Generic Name Dose Route Start Last Admin Trade Name Freq PRN Reason Stop Dose Admin Ascorbic Acid 500 mg 11/14/16 10:00 11/24/16 09:34 Vitamin C - PO 500 mg DAILY KENDRICK Administration Ferrous Sulfate 325 mg 11/16/16 13:30 11/24/16 09:34 Feosol - PO 325 mg DAILY KENDRICK Administration Folic Acid 1 mg 11/14/16 10:00 11/24/16 09:34 Folic Acid - PO 1 mg DAILY KENDRICK Administration Furosemide 40 mg 11/22/16 16:46 11/24/16 09:35 Lasix - PO 40 mg DAILY KENDRICK Administration Gabapentin 100 mg 11/17/16 14:00 11/24/16 05:32 Neurontin - PO 100 mg TID KENDRICK Administration Lactulose 30 gm 11/16/16 22:00 11/24/16 13:11 Cephulac (Oral Use) PO Not Given QID KENDRICK Nadolol 40 mg 11/22/16 15:00 11/24/16 09:35 Corgard - PO 40 mg DAILY KENDRICK Administration Pantoprazole Sodium 40 mg 11/14/16 10:00 11/24/16 09:34 Protonix - PO 40 mg DAILY KENDRICK Administration Potassium Chloride 40 meq 11/24/16 14:00 K-Dur - PO 11/24/16 14:01 ONCE ONE Rifaximin 550 mg 11/22/16 11:45 11/24/16 09:34 Xifaxan - PO 550 mg BID KENDRICK Administration Silver Sulfadiazine 1 applic 11/24/16 10:00 11/24/16 09:49 Silvadene - TP 1 applic DAILY KENDRICK Administration Spironolactone 50 mg 11/14/16 17:45 11/24/16 09:35 Aldactone - PO 50 mg DAILY KENDRICK Administration Thiamine HCl 100 mg 11/14/16 10:00 11/24/16 09:36 Vitamin B1 - PO 100 mg DAILY KENDRICK Administration Home Medications Medication Instructions Recorded Folic Acid 1 mg PO DAILY 11/14/16 Pantoprazole Sodium [Protonix] 40 mg PO DAILY 11/14/16 Rifaximin [Xifaxan -] 550 mg PO BID 11/14/16 Thiamine HCl [Vitamin B1] 100 mg NR DAILY 11/14/16 Ferrous Sulfate [Feosol] 325 mg PO DAILY #30 tab 11/24/16 Furosemide [Lasix -] 40 mg PO DAILY tablet 11/24/16 Gabapentin [Neurontin -] 100 mg PO TID tab 11/24/16 Lactulose (Oral Use) [Cephulac -] 30 gm PO QID #60 dose 11/24/16 Nadolol [Corgard -] 40 mg PO DAILY #30 tablet 11/24/16 Silver Sulfadiazine 1% Top Cr 1 applic TP DAILY #1 jar 11/24/16 [Silvadene -] Spironolactone [Aldactone -] 50 mg PO DAILY tablet 11/24/16 PE: per resident's note ASSESSMENT AND PLAN: 46 y/o man with h/o alcohol abuse, multisubstance abuse, cirrhosis, HCV, SBO s/ p Bowel resection , who presented with AMS. He was found to have acute encephalopathy. # s/p AMS: back to his baseline. due to hepatic encephalopathy with metabolic encephalopathy and alcohol intoxication continue his meds. # Cirrhosis with ascitis : was started on IV antibiotic Cefepime day 5/5 for possible SBP. s/p EGD today with varices, banded , as per ID patient can go home today off antibiotics # RLE cellulitis with infected ulcers: completed 5 days of IV Cefepime , on santyl improved , will send the patient home on silvadene crm. and Xeroform # Thrombocytopeia: likely due to liver dz # Polysubstance abuse :s/p alcohol detox and methadone detox # Microcytic iron def anemia: cont iron supp , Cont nadolol for variceal bleeding prophylaxis DVT PX : hold heparin due to thrombocytopenia discharge patient home today
[2016-11-24] MEDS ORDERED: POTASSIUM CHLORIDE TABS 20 MEQ TABLET.ER (FP) PO ONE (14:45)
--- NOTE | 2016-11-24 16:28 | DS ---
Physical Exam: SUBJECTIVE: Patient seen and examined. No acute events overnight. Patient offered no new complaints. Denies headache, chest pain, SOB, dizziness. OBJECTIVE: Vital Signs Period Temp Pulse Resp BP Sys/Choi Pulse Ox Last 24 Hr 97.9 F-99.6 F 62-64 18-20 90-105/52-65 97-97 PHYSICAL EXAM GENERAL: mild distress, Alert, oriented x 3 HEAD: Normal with no signs of trauma. EYES: 1mm pupils, minimally reactive ENT: oropharynx clear without exudates, moist mucous membranes. NECK: supple. LUNGS: Breath sounds equal, clear to auscultation bilaterally, no wheezes, no crackles, no accessory muscle use. HEART: Regular rate and rhythm, S1, S2 with 4/6 crescendo-decrescendo murmur ABDOMEN:Soft, Distended , Ascites, normoactive bowel sounds, nontender EXTREMITIES: Dp pulses 2+, RLE ulceration , granulation, dry (improved) SKIN: Warm, dry, normal turgor, no rashes or lesions noted LABS Laboratory Results - last 24 hr 11/22/16 11/24/16 11/24/16 09:25 07:50 07:50 WBC 4.0 RBC 3.93 L Hgb 8.9 L Hct 28.6 L MCV 72.9 L MCH 22.7 L MCHC 31.2 L RDW 22.1 H Plt Count 94 L MPV 8.4 D Sodium 142 Potassium 3.3 L Chloride 109 H Carbon Dioxide 25 Anion Gap 8 BUN 4 L D Creatinine 0.5 L D Random Glucose 73 L Calcium 7.5 L Hep A IgM Ab Confirm Negative Hepatitis A Ab Total Positive H Hep Bs Antigen Negative Hep Bs Antibody Reactive Hep B Core Total Ab Positive H HOSPITAL COURSE: Date of Admission:11/14/16 46yo M with PMH continuous ETOH dependence, Cirrhosis, thrombocytopenia, HCV, SBO s/p resection, polysubstance abuse, noncompliance, presented to the ER with AMS and was found to have acute toxic encephalopathy, right lower extremity cellulitis, and possible SBP. ID was consulted and patient was treated and managed with IV antibiotics. During hospital course, patient refused multiple treatments including paracentesis and was seeking pain medications. Patient also refused rehab and said he wanted to be discharged home. He was followed by Dr. Taylor, and completed detox. He showed no signs of withdrawals during hospital stay. Patient was discharged home once improved and antibiotic course was completed. Patient was instructed to follow up with PCP, GI, Detox and wound care 1 week after admission. Date of Discharge: 11/24/16 Minutes to complete discharge: 35 Discharge Summary Reason For Visit: CELLULITIS OF RIGHT LOWER EXTREMITY,ALTERED Current Active Problems Alcohol abuse (Chronic) Liver failure (Chronic) Condition: Stable - Instructions Diet, Activity, Other Instructions: Please follow up with your primary care physician in 1 week. You will also need to follow up with Dr. Garcia for wound care in 1 week. Please change your leg dressing everyday. Follow up with your GI doctor in [address] Taylor in a week. Quitting alcohol is recommended. It can be very damaging to your liver. Permanent liver damage can lead to . Take your medications as directed and use your walker when needed to prevent falls. If you feel your symptoms are worsening, call your doctor. If its an emergency, call 911. Referrals: Garcia Arteaga [Primary Care Provider] - 1 Week Sen Garcia MD [Staff Physician] - 1 Week Per Taylor MD [Staff Physician] - Disposition: VNS/HOME HEALTH CARE - Home Medications Comprehensive Discharge Medication List: Ambulatory Orders Folic Acid 1 mg PO DAILY 11/14/16 Pantoprazole Sodium [Protonix] 40 mg PO DAILY 11/14/16 Rifaximin [Xifaxan -] 550 mg PO BID 11/14/16 Thiamine HCl [Vitamin B1] 100 mg NR DAILY 11/14/16 Ferrous Sulfate [Feosol] 325 mg PO DAILY #30 tab 11/24/16 Furosemide [Lasix -] 40 mg PO DAILY tablet 11/24/16 Gabapentin [Neurontin -] 100 mg PO TID tab 11/24/16 Lactulose (Oral Use) [Cephulac -] 30 gm PO QID #60 dose 11/24/16 Nadolol [Corgard -] 40 mg PO DAILY #30 tablet 11/24/16 Silver Sulfadiazine 1% Top Cr [Silvadene -] 1 applic TP DAILY #1 jar 11/24/16 Spironolactone [Aldactone -] 50 mg PO DAILY tablet 11/24/16 This patient is new to me today: No Emergency Visit: Yes ED Registration Date: 11/14/16 Care time: The patient presented to the Emergency Department on the above date and was hospitalized for further evaluation of their emergent condition. Critical Care patient: No - Discharge Referral Referred to [facility] No
[2016-11-30 13:47] LABS: HEP D VIRUS TOTAL ANTIBODY Negative (Negative)
== END 2016-11-24 15:26 | disposition home health service (06) | DRG 279 ==
LOC: JER 23:57 → JERBED 11-14 04:15 → J6S 11-14 08:10
PROVIDERS: ADMIT Internal Medicine; ATTEND Internal Medicine
PROC: HZ2ZZZZ Detoxification Services for Substance Abuse Treatment (ICD-10-PCS; 2016-11-15)
PROC: HZ81ZZZ Medication Management for Substance Abuse Treatment, Methadone Maintenance (ICD-10-PCS; 2016-11-15)
PROC: 06L38CZ Occlusion of Esophageal Vein with Extraluminal Device, Via Natural or Artificial Opening Endoscopic (ICD-10-PCS; principal; 2016-11-22 08:00)
DX: K72.00 Acute and subacute hepatic failure without coma (principal); G93.41 Metabolic encephalopathy; L03.115 Cellulitis of right lower limb; E72.20 Disorder of urea cycle metabolism, unspecified; I85.10 Secondary esophageal varices without bleeding; E87.2 Acidosis; K70.31 Alcoholic cirrhosis of liver with ascites; D69.59 Other secondary thrombocytopenia; K76.6 Portal hypertension; L97.829 Non-pressure chronic ulcer of other part of left lower leg with unspecified severity; F11.20 Opioid dependence, uncomplicated; E88.09 Other disorders of plasma-protein metabolism, not elsewhere classified; E83.51 Hypocalcemia; B19.20 Unspecified viral hepatitis C without hepatic coma; Y90.5 Blood alcohol level of 100-119 mg/100 ml; F10.220 Alcohol dependence with intoxication, uncomplicated; Z90.49 Acquired absence of other specified parts of digestive tract; E87.6 Hypokalemia; D50.9 Iron deficiency anemia, unspecified; F14.10 Cocaine abuse, uncomplicated; F13.10 Sedative, hypnotic or anxiolytic abuse, uncomplicated; F17.210 Nicotine dependence, cigarettes, uncomplicated; D63.8 Anemia in other chronic diseases classified elsewhere; Z91.14 Patient's other noncompliance with medication regimen; Z53.29 Procedure and treatment not carried out because of patient's decision for other reasons
CPT/HCPCS: 36415; 71010-TC; 74000-TC; 74020-TC; 74176-TC; 76705-TC; 80048; 80053; 80076; 80307; 81003; 81015; 82140; 82553; 82607; 82728; 82746; 82803; 83540; 83550; 83605; 83735; 84100; 84466; 84484; 85025; 85027; 85610; 85730; 86704; 86706; 86708; 86850; 86900; 86901; 87040; 87086; 87340; 93005; 93010; 93925-TC; 93970-TC; 97116-GP; 97161-GP; 99283-25; J1644; Q9967

== ENCOUNTER 2017-01-09 13:29 | Inpatient (IN) | payer OTHER ==
--- NOTE | 2017-01-09 18:16 | PDOC ---
History of Present Illness - History of Present Illness Initial Comments: 01/09/17 18:27 46 year old male, with PMH of EtOH abuse, cirrhosis, Hep C, ascites, esophageal varices, SBO s/p small bowel resection, who presents to the emergency room today complaining of 3 weeks right inguinal and testicular swelling that significantly increased approximately 2 weeks ago. He also notes that his abdomen has been increasingly distended. The patient was recently at [facility] emergency room where he had a paracentesis. However, after being discharged 2 weeks ago insurance did not approve his liver medications and the patient has been noncompliant. The patient notes that he feels like he is choking especially when lying down. Denies chest pain, SOB. Denies fever, chills, nausea, vomiting. Denies leg swelling. Denies hematuria, dysuria. Allergies: NKA PMD: PTs family states that he is in and out of the hospital and does not follow up with a PMD Mother's contact info - Camryn Cook --Wolof speaking only Sister's contact info (bilingual)- <Mayra Rodriguez - Last Filed: 01/09/17 18:27> <Ann Craft - Last Filed: 01/10/17 00:33> - General History Source: Patient Exam Limitations: No Limitations <Ozzie Faust - Last Filed: 01/16/17 10:11> - General Chief Complaint: Pain Stated Complaint: GROIN PAIN Time Seen by Provider: 01/09/17 15:37 Past History <Mayra Rodriguez - Last Filed: 01/09/17 18:27> <Ann Craft - Last Filed: 01/10/17 00:33> - Past Medical History Anemia: No Asthma: No Cancer: No Cardiac Disorders: No CVA: No COPD: No CHF: No DVT: No Dementia: No Diabetes: No Dialysis: No GI Disorders: Yes (GI BLEED, SBO) Disorders: No HTN: Yes Hypercholesterolemia: No Liver Disease: Yes (HEPATITS C) Seizures: No Thyroid Disease: No - Surgical History Abdominal Surgery: Yes (GI BLEED/HERNIA, Partial SBO resection) Appendectomy: No Cardiac Surgery: No Cholecystectomy: No Lung Surgery: No Neurologic Surgery: Yes Orthopedic Surgery: No - Immunization History Immunization Up to Date: No - Suicide/Smoking/Psychosocial Hx Smoking Status: Yes Smoking History: Never smoked Have you smoked in the past 12 months: No Number of Cigarettes Smoked Daily: 3 If you are a former smoker, when did you quit?: 06/11/2013 Information on smoking cessation initiated: No 'Breaking Loose' booklet given: 07/26/16 Hx Alcohol Use: No Drug/Substance Use Hx: No Substance Use Type: None Hx Substance Use Treatment: (unobtainable) <Ozzie Faust - Last Filed: 01/16/17 10:11> - Past Medical History Allergies/Adverse Reactions: Allergies Allergy/AdvReac Type Severity Reaction Status Date / Time No Known Allergies Allergy Verified 01/09/17 13:49 Home Medications: Ambulatory Orders Rifaximin [Xifaxan -] 550 mg PO BID 11/14/16 Gabapentin 100 mg PO TID #30 capsule 01/10/17 Ferrous Sulfate [Feosol] 325 mg PO DAILY #30 tab 01/12/17 Folic Acid 1 mg PO DAILY #14 tablet 01/12/17 Furosemide [Lasix -] 40 mg PO BID@0600,1400 #28 tablet 01/12/17 Lactulose (Oral Use) [Cephulac -] 30 gm PO QID #60 dose 01/12/17 Nadolol [Corgard -] 40 mg PO DAILY #30 tablet 01/12/17 Pantoprazole Sodium [Protonix] 40 mg PO DAILY #14 tablet. 01/12/17 Spironolactone [Aldactone -] 75 mg PO BID #14 tablet 01/12/17 Review of Systems - Review of Systems Able to Perform ROS?: Yes Comments:: 01/09/17 18:30 GENERAL/CONSTITUTIONAL: No fever or chills. No weakness. HEAD, EYES, EARS, NOSE AND THROAT: No change in vision. No ear pain or discharge. No sore throat. CARDIOVASCULAR: No chest pain or shortness of breath. RESPIRATORY: No cough, wheezing, or hemoptysis. GASTROINTESTINAL: No nausea, vomiting, diarrhea or constipation. GENITOURINARY: No dysuria, frequency, or change in urination. MUSCULOSKELETAL: No joint or muscle swelling or pain. No neck or back pain. SKIN: No rash NEUROLOGIC: No headache, vertigo, loss of consciousness, or change in strength/ sensation. ENDOCRINE: No increased thirst. No abnormal weight change. HEMATOLOGIC/LYMPHATIC: No anemia, easy bleeding, or history of blood clots. ALLERGIC/IMMUNOLOGIC: No hives or skin allergy. <Mayra Rodriguez - Last Filed: 01/09/17 18:27> *Physical Exam - Vital Signs Last Vital Signs Temp Pulse Resp BP Pulse Ox 98 F 82 18 125/72 100 01/09/17 13:47 01/09/17 13:47 01/09/17 13:47 01/09/17 13:47 01/09/17 13:47 - Physical Exam Comments: 01/09/17 18:30 GENERAL: Awake, alert, and fully oriented, in no acute distress HEAD: No signs of trauma EYES: PERRLA, EOMI, sclera anicteric, conjunctiva clear ENT: Auricles normal inspection, hearing grossly normal, nares patent, oropharynx clear without exudates. Moist mucosa NECK: Normal ROM, supple, no lymphadenopathy, JVD, or masses LUNGS: Breath sounds equal, clear to auscultation bilaterally. No wheezes, and no crackles HEART: Regular rate and rhythm, normal S1 and S2, no murmurs, rubs or gallops ABDOMEN: Distended nontender abdomen, +fluid wave, normoactive bowel sounds. No guarding, no rebound. No masses GENITAL: Right scrotal swelling with mild tenderness, not reducible. EXTREMITIES: Normal range of motion, no edema. No clubbing or cyanosis. No cords, erythema, or tenderness NEUROLOGICAL: Cranial nerves II through XII grossly intact. Normal speech, normal gait SKIN: Warm, Dry, normal turgor, no rashes or lesions noted. <LynnerufinaMayra - Last Filed: 01/09/17 18:27> - Vital Signs Last Vital Signs Temp Pulse Resp BP Pulse Ox 98 F 84 16 132/94 99 01/09/17 13:47 01/09/17 23:13 01/09/17 23:13 01/09/17 23:13 01/09/17 23:13 <Ann Craft - Last Filed: 01/10/17 00:33> - Vital Signs Last Vital Signs Temp Pulse Resp BP Pulse Ox 98 F 82 18 125/72 100 01/09/17 13:47 01/09/17 13:47 01/09/17 13:47 01/09/17 13:47 01/09/17 13:47 <Ozzie Faust - Last Filed: 01/16/17 10:11> Heart Score/ECG Review #1 ECG reviewed & interpreted by me at: 19:00 01/09/17 19:20 NSR 86, no std/angela, QTC 519 msec, normal axis, normal intervals <Ozzie Faust - Last Filed: 01/16/17 10:11> ED Treatment Course - LABORATORY CBC & Chemistry Diagram: 01/09/17 19:00 01/09/17 19:00 - ADDITIONAL ORDERS Additional order review: Laboratory Results 01/09/17 01/09/17 01/09/17 19:15 19:00 19:00 PT with INR INR PTT (Actin FS) Sodium 142 Potassium 4.0 D Chloride 111 H Carbon Dioxide 23 Anion Gap 8 BUN 11 D Creatinine 0.7 D Creat Clearance w eGFR > 60 Random Glucose 79 Calcium 7.2 L Magnesium 2.0 Total Bilirubin 1.2 H AST 44 H D ALT 36 D Alkaline Phosphatase 242 H D Ammonia 79.42 H Creatine Kinase 80 Troponin I < 0.02 B-Natriuretic Peptide 33.64 Total Protein 6.7 Albumin 2.1 L D Lipase 539 H Urine Color Morenita Urine Appearance Slcloudy Urine pH 5.0 Ur Specific Warren 1.035 Urine Protein 1+ H Urine Glucose (UA) Negative Urine Ketones Negative Urine Blood Negative Urine Nitrite Negative Urine Bilirubin 2.0 Urine Urobilinogen 2.0 Ur Leukocyte Esterase Negative 01/09/17 19:00 PT with INR 16.90 H INR 1.50 H PTT (Actin FS) 33.4 Sodium Potassium Chloride Carbon Dioxide Anion Gap BUN Creatinine Creat Clearance w eGFR Random Glucose Calcium Magnesium Total Bilirubin AST ALT Alkaline Phosphatase Ammonia Creatine Kinase Troponin I B-Natriuretic Peptide Total Protein Albumin Lipase Urine Color Urine Appearance Urine pH Ur Specific Warren Urine Protein Urine Glucose (UA) Urine Ketones Urine Blood Urine Nitrite Urine Bilirubin Urine Urobilinogen Ur Leukocyte Esterase 01/09/17 19:00 RBC 3.54 L MCV 75.1 L MCHC 32.8 RDW 20.3 H MPV 8.7 Neutrophils % 65.9 Lymphocytes % 15.0 Monocytes % 12.7 H Eosinophils % 5.4 H D Basophils % 1.0 - Medications Given in the ED: ED Medications Discontinued Medications Generic Name Dose Route Start Last Admin Trade Name Rafael PRN Reason Stop Dose Admin Lactulose 20 gm 01/09/17 23:17 01/09/17 23:24 Cephulac (Oral Use) PO 01/09/17 23:18 20 gm ONCE ONE Administration Morphine Sulfate 4 mg 01/09/17 23:17 01/09/17 23:24 Morphine Injection - IVPUSH 01/09/17 23:18 4 mg ONCE ONE Administration <Ann Craft - Last Filed: 01/10/17 00:33> - LABORATORY CBC & Chemistry Diagram: 01/12/17 07:35 01/12/17 07:35 - RADIOLOGY Radiology Studies Ordered: Category Date Time Status ABDOMEN & PELVIS CT WITH CONTR [CT] Stat CT Scan 01/09/17 18:07 Ordered CHEST X-RAY PORTABLE* [RAD] Stat Radiology 01/09/17 18:07 Ordered SCROTUM AND CONTENTS US [US] Stat Ultrasound 01/09/17 18:07 Ordered <Ozzie Faust - Last Filed: 01/16/17 10:11> Medical Decision Making - Medical Decision Making 01/09/17 18:15 A portion of this note was documented by scribe services under my direction. I have reviewed the details of the note, within reason, and agree with the documentation with the following case summary and management plan written by me. Patient treated in the ED. Nursing notes are reviewed and incorporated into the medical decision-making. Vital signs reviewed. Peripheral IV access obtained by the nurse, laboratory studies are drawn and sent, reviewed and interpreted by myself. Vital Signs Temp Pulse Resp BP Pulse Ox 98 F 82 18 125/72 100 01/09/17 13:47 01/09/17 13:47 01/09/17 13:47 01/09/17 13:47 01/09/17 13:47 46 year old male with past medical history of alcohol dependence, cirrhosis, thrombocytopenia, hepatitis C, bowel obstruction status post resection, polysubstance abuse, noncompliance presents with right inguinal and scrotal swelling for 3 weeks. The patient reported that the pain hasn't persistent fall this time but denies any fevers or chills. Has been moving his bowels and eating food. The patient was released last week for liver workup and management. States that he has been given medications from [facility] but insurances rejected his medications. He had told about his right testicle or swelling at [facility] and they were going to perform a CAT scan the head and pelvis but ultimately did not. Family thinks they may have forgotten. I suspect the patient likely has an incarcerated right inguinal hernia. We'll however, the skin for potentially orchitis, versus epididymitis versus scrotal swelling secondary to cirrhosis. We'll obtain a CAT scan abdomen pelvis and scrotal ultrasound. Patient is also complaining about some mild shortness of breath which I suspect is secondary to the ascites. We'll get a chest x-ray. Reassess. Pt signed out to the night physician Dr. Craft for further management. <Ozzie Faust - Last Filed: 01/16/17 10:11> *DC/Admit/Observation/Transfer - Attestations Scribe Attestion: 01/09/17 18:30 Documentation prepared by DANILO Chery, acting as medical clinic manager for Ozzie Faust MD, /DO. <Mayra Rodriguez - Last Filed: 01/09/17 18:27> - Discharge Dispostion Admit: Yes <Ann Craft - Last Filed: 01/10/17 00:33> <Ozzie Faust - Last Filed: 01/16/17 10:11> Diagnosis at time of Disposition: Hyperammonemia, Ascites due to alcoholic cirrhosis Liver cirrhosis Qualifiers: Hepatic cirrhosis type: alcoholic cirrhosis Ascites presence: with ascites Qualified Code(s): K70.31 - Alcoholic cirrhosis of liver with ascites - Discharge Dispostion Disposition: HOME Condition at time of disposition: Stable
[2017-01-09 19:29] LABS: URINE APPEARANCE SLCLOUDY; URINE BLOOD NEGATIVE (NEGATIVE); URINE COLOR AMBER; URINE GLUCOSE (UA) NEGATIVE (NEGATIVE); URINE KETONE NEGATIVE (NEGATIVE); URINE NITRITE NEGATIVE (NEGATIVE)
[2017-01-09 19:31] LABS: INR 1.5 (0.82-1.09); PROTHROMBIN TIME (PATIENT) 16.9 SEC (9.98-11.88)
[2017-01-09 19:33] LABS: URINE PROTEIN 1+ (NEGATIVE)
[2017-01-09 19:34] LABS: ACTIVATED PTT 33.4 SECONDS (26.9-34.4)
[2017-01-09 19:45] LABS: ALBUMIN 2.1 g/dl (3.4-5.0); ANION GAP 8 (8-16); BILIRUBIN,TOTAL 1.2 mg/dL (0.2-1.0); CALCIUM 7.2 mg/dL (8.5-10.1); CO2 23 mmol/L (21-32); CREATININE 0.7 mg/dL (0.7-1.3); EOSINOPHIL 5.4 % (0-4.5); GLUCOSE,RANDOM 79 mg/dL (74-106); MCH 24.6 pg (25.7-33.7); MCHC 32.8 g/dl (32.0-35.9); MEAN CELL VOLUME 75.1 fl (80-96); MEAN PLT VOLUME 8.7 fl (7.5-11.1); NEUTROPHILS 65.9 % (42.8-82.8); PLATELET COUNT 97 K/MM3 (134-434); RDW 20.3 % (11.9-15.9); SGOT/AST 44 U/L (15-37); SGPT/ALT 36 U/L (12-78); TOT PROT 6.7 g/dl (6.4-8.2); WHITE BLOOD COUNT 4.4 K/mm3 (4.0-10.0)
[2017-01-09 19:48] LABS: ALK PHOS 242 U/L (45-117); CPK 80 IU/L (39-308); TROPONIN I < 0.02 ng/ml (0.00-0.05)
[2017-01-09 22:24] LABS: URINE LEUK ESTERASE Negative (NEGATIVE)
[2017-01-09] MEDS ORDERED: LACTULOSE 20 GM/30 ML UDC (FOR ORAL USE ONLY) PO ONE (23:17)
[2017-01-09] MEDS ORDERED: morphine CARPU-JECT 4 MG/1 ML DISP.SYRIN IVPUSH ONE (23:17)
[2017-01-09] MEDS ORDERED: LACTULOSE 20 GM/30 ML UDC (FOR ORAL USE ONLY) ONE (23:19)
[2017-01-09] MEDS ORDERED: morphine SULFATE 4 MG/ML VIAL ONE (23:19)
--- NOTE | 2017-01-10 00:32 | PN ---
Teaching Attending Note Name of Resident: Govind Pepper ATTENDING PHYSICIAN STATEMENT I saw and evaluated the patient. I reviewed the resident's note and discussed the case with the resident. I agree with the resident's findings and plan as documented. SUBJECTIVE: 46 yo M with pmhx. of ETOH abuse, cirrohosis, hep. C, IVDA, chronic wound RLE, SBO s/p partial small bowel resection, facial trauma s/p ORIF with metal plates , HCV who presents from the [facility]. He presented to the [facility] seeking rehab treatment as per chart. As per patient he has not used any substance recently and does not use drugs or alcohol. States he has had right groin/testicular swelling. Notes he has not been able to take his meds, due to financial reasons. No chest pain, pressure or shortness of breath. OBJECTIVE: Physical: VS: Vital Signs Period Temp Pulse Resp BP Sys/Choi Pulse Ox Last 24 Hr 98 F 78-84 16-18 122-132/68-94 96-100 GEN: NAD, Resting in bed, AA0X3 HEENT: NCAT, PERRL, throat without erythema or exudates CARD: RRR S1, S2 RESP: Decreased breath sounds at bases ABD: Distended BSX4, NTD to palpation EXT: RLE with Ulcerations, with drainage of serosanginous fluid, LLE- non- pitting edema R. Scrotum with Edema CBCD WBC 4.4 K/mm3 (4.0-10.0) 01/09/17 19:00 RBC 3.54 M/mm3 (4.00-5.60) L 01/09/17 19:00 Hgb 8.7 GM/dL (11.7-16.9) L 01/09/17 19:00 Hct 26.6 % (35.4-49) L 01/09/17 19:00 MCV 75.1 fl (80-96) L 01/09/17 19:00 MCHC 32.8 g/dl (32.0-35.9) 01/09/17 19:00 RDW 20.3 % (11.9-15.9) H 01/09/17 19:00 Plt Count 97 K/MM3 (134-434) L 01/09/17 19:00 MPV 8.7 fl (7.5-11.1) 01/09/17 19:00 CMP Sodium 142 mmol/L (136-145) 01/09/17 19:00 Potassium 4.0 mmol/L (3.5-5.1) D 01/09/17 19:00 Chloride 111 mmol/L (98-107) H 01/09/17 19:00 Carbon Dioxide 23 mmol/L (21-32) 01/09/17 19:00 Anion Gap 8 (8-16) 01/09/17 19:00 BUN 11 mg/dL (7-18) D 01/09/17 19:00 Creatinine 0.7 mg/dL (0.7-1.3) D 01/09/17 19:00 Creat Clearance w eGFR > 60 (>60) 01/09/17 19:00 Calcium 7.2 mg/dL (8.5-10.1) L 01/09/17 19:00 Total Bilirubin 1.2 mg/dL (0.2-1.0) H 01/09/17 19:00 AST 44 U/L (15-37) H D 01/09/17 19:00 ALT 36 U/L (12-78) D 01/09/17 19:00 Alkaline Phosphatase 242 U/L (45-117) H D 01/09/17 19:00 Total Protein 6.7 g/dl (6.4-8.2) 01/09/17 19:00 Albumin 2.1 g/dl (3.4-5.0) L D 01/09/17 19:00 Home Medications Medication Instructions Recorded Folic Acid 1 mg PO DAILY 11/14/16 Pantoprazole Sodium [Protonix] 40 mg PO DAILY 11/14/16 Rifaximin [Xifaxan -] 550 mg PO BID 11/14/16 Thiamine HCl [Vitamin B1] 100 mg NR DAILY 11/14/16 Ferrous Sulfate [Feosol] 325 mg PO DAILY #30 tab 11/24/16 Furosemide [Lasix -] 40 mg PO DAILY tablet 11/24/16 Gabapentin [Neurontin -] 100 mg PO TID tab 11/24/16 Lactulose (Oral Use) [Cephulac -] 30 gm PO QID #60 dose 11/24/16 Nadolol [Corgard -] 40 mg PO DAILY #30 tablet 10/12/17 Silver Sulfadiazine 1% Top Cr 1 applic TP DAILY #1 jar 11/24/16 [Silvadene -] Spironolactone [Aldactone -] 50 mg PO DAILY tablet 11/24/16 CXR- Shallow ispiration, Small right plueral effusions, bibasilar subsegmental atelectasis CT ABD/Pelvis- Cirrohotic with evidence of portal hypertension, large asictes, extending to scrotum, r. inguinal hernia, increased since 11/17. Diffuse bowel wall thickening of stomach and/or large bowel C/W portal enteropathy, r. plueral effusion and body wall edema. RML nodule 6mm similar to 11/17. Scrotal US- No evidence of testicular torsion or acute epididyomo-orchitis, large fluid collection in region of right inguinal canal corresponds to ascites within right inguinal hernia, which was present on 11/17 CT. ASSESSMENT AND PLAN: 46 yo M with pmhx. of ETOH abuse, cirrohosis, hep. C, IVDA, chronic wound RLE, SBO s/p partial small bowel resection, facial trauma s/p ORIF with metal plates , HCV who presents from [facility] for scrotal swelling. 1.) Right Inguinal Hernia with Ascites - Not incarcerated - Sx. consult if not improvement with decreasing ascites or if worsening edema/ pain 2.) Hx. of Hepatic encephalopathy - C/W lactulose 3.) Cirrhosis - C/W Rifaxamin, nadolol, Aldactone and lasix 4.) Ascites - Low suspicion for SBP as pt. has no fevers, non-tender - Abd. US - Restart home medications, if no improvement or short of breath- consider paracentesis 5.) Polysubstance Abuse, hx. of - U drug tox - C/W Thiamine and Folic A - Detox consult 6.) Prolonged QtC - Monitor - Avoid QT prolonging agents - Chk. Mg 2+ 7.) Thrombocytopenia - Due to Cirrhosis - Monitor 8.) Microcytic Anemia - C/W Fe - Transfuse <7 9.) Dvt ppx - Heparin [address] in Med-Sx
--- NOTE | 2017-01-10 01:24 | MSN ---
Admitting History and Physical - Admission Chief Complaint: Right testicular pain and swelling History of Present Illness: Wilmer Duarte is a 46 year old male with pmhx of Hepatitis C, alcohol abuse, cirrhosis, ascites, esophageal varices, umbilical hernia, s/p small bowel resection, who presents with right testicular pain and swelling, which began 20 days ago. Patient states that the swelling has been increasing. Patient also reports 1 week of SOB when laying down. Patient states that 2 nights ago he had a fever of 102F. He also reports cough, sneezing, and itching on his abdomen. Patient also reports diarrhea and states he has more than 5 bowel movements per day but denies any blood in stool. Patient states he has been compliant with all of his medications except for xifaxan. Patient states he hasn't been taking xifaxan for a week because his insurance won't cover it. Patient states he recently had a paracentesis done in the past month at [facility]. History Source: Patient Limitations to Obtaining History: No Limitations - Past Medical History Gastrointestinal: Yes: Ascites, Esophageal Varices, Other (Hepatitis, umbilical hernia) Hepatobiliary: Yes: Cirrhosis, Hepatitis C Psych: Yes: Addictions (alchohol Current, Heroin revcovery) Rheumatology: No: Fibromyalgia Dermatology: Yes: Other (rt lower extremity cellulitis) - Past Surgical History Past Surgical History: Yes: Colectomy - Smoking History Smoking history: Never smoked Have you smoked in the past 12 months: No Aproximately how many cigarettes per day: 3 If you are a former smoker, when did you quit?: 06/11/2013 - Alcohol/Substance Use Hx Alcohol Use: No Number of Drinks Daily: 3 History of Substance Use: reports: Heroin Date of Last Use: 11/14/16 (see tox report) Home Medications - Allergies Allergies/Adverse Reactions: Allergies Allergy/AdvReac Type Severity Reaction Status Date / Time No Known Allergies Allergy Verified 01/09/17 13:49 - Home Medications Home Medications: Ambulatory Orders Folic Acid 1 mg PO DAILY 11/14/16 Pantoprazole Sodium [Protonix] 40 mg PO DAILY 11/14/16 Rifaximin [Xifaxan -] 550 mg PO BID 11/14/16 Ferrous Sulfate [Feosol] 325 mg PO DAILY #30 tab 11/24/16 Furosemide [Lasix -] 40 mg PO DAILY tablet 11/24/16 Lactulose (Oral Use) [Cephulac -] 30 gm PO QID #60 dose 11/24/16 Nadolol [Corgard -] 40 mg PO DAILY #30 tablet 11/24/16 Spironolactone [Aldactone -] 50 mg PO DAILY tablet 11/24/16 Gabapentin 100 mg PO TID #30 capsule 01/10/17 Review of Systems - Review of Systems Constitutional: reports: Fever Eyes: reports: No Symptoms HENT: reports: No Symptoms Neck: reports: No Symptoms Cardiovascular: reports: No Symptoms Respiratory: reports: SOB Gastrointestinal: reports: Abdominal Pain, Diarrhea, Nausea Genitourinary: reports: Testicular Pain, Testicular Swelling Musculoskeletal: reports: Extremity Pain (right lower extremity cellulitis) Integumentary: reports: Pruritis (Pruritis on his abdomen), Wound (right lower extremity celullitis that's healing well) Physical Examination Vital Signs: Vital Signs Temperature 98 F 01/09/17 13:47 Pulse Rate 84 01/09/17 23:13 Respiratory Rate 16 01/09/17 23:13 Blood Pressure 132/94 01/09/17 23:13 O2 Sat by Pulse Oximetry (%) 99 01/09/17 23:13 Constitutional: Yes: Well Nourished, Calm Eyes: Yes: EOM Intact, PERRL HENT: Yes: Atraumatic, Normocephalic Neck: Yes: Supple, Trachea Midline Cardiovascular: Yes: Regular Rate and Rhythm Respiratory: Yes: Regular, CTA Bilaterally Gastrointestinal: Yes: Ascites, Distention, Hernia, Hyperactive Bowel Sounds, Tenderness (tenderness to palpation in the right groin), Other (surgical scar down the midline, ecchymosis in right lower quadrant) Renal/: Yes: Scrotal Edema (right testicular swelling, +tenderness to palpation) Integumentary: Yes: Other (right lower extremity cellulitis from previous visit that is now healing well, granulation tissue noted, no active bleeding, non- odorous, mild discharge) Wound/Incision: Yes: Other Neurological: Yes: Alert, Oriented Labs: CBC, BMP 01/09/17 19:00 01/09/17 19:00 Assessment/Plan Wilmer Duarte is a 46 year old male with pmhx of hepatitis C, alcohol abuse, cirrhosis, esophageal varices, umbilical hernia, s/p small bowel resection, who presents with right testicular pain, swelling, and SOB. Patient is being admitted for SOB secondary to ascites and cirrhotic liver disease. 1. SOB secondary to ascites and cirrhotic liver disease - Lasix 40 mg PO daily - Spirinolactone 50 mg PO daily 2. Testicular swelling secondary to inguinal hernia and ascites - GI on board- Dr. Rivera - US of the right scrotum showed large fluid collection in the right inguinal canal due to ascites 3. Hyperammonemia - A&Ox3 - Baseline ammonia level ranges from 70 to 130 - Continue Lactulose 30 mg Q6H - Continue Xifaxan 550 mg PO BID 4. Esophageal varices - Nadolol 40 mg PO daily 5. Thrombocytopenia secondary to cirrhosis - Platelet count 97, baseline is 80-100 - Monitor INR 6. Polysubstance abuse - Get Urine toxicology - Continue thiamine and folic acid 7. Right lower extremity cellulitis - Wound healing well - Consult wound care 8. DVT proph - Heparin 5000U SQ Q8H Dispo: Admit patient to Med-Surg
--- NOTE | 2017-01-10 01:33 | HP ---
CHIEF COMPLAINT: right testicular swelling and pain PCP: n/a HISTORY OF PRESENT ILLNESS: Patient is a 46 year old male with PMHx of Hepatitis C, alcohol abuse, cirrhosis, ascites, esophageal varices, umbilical hernia, s/p small bowel resection, because of right testicular swelling and pain that started 20 days ago. Patient is also complaining SOB when laying flat that started 1 week ago. He also associates his SOB with his testicular pain. Patient says he had a subjective fever 2 days ago of 102 but has resolved. Patient is on lactulose and says he has more than 5 loose bowel movements a day. Patient states he has been compliant with his meds except for Xifaxan because of insurance issues. Patient is also complaining of a diffuse pruritic rash on his chest and abdomen, which he says started after receiving many SQ heparin injections. Patient says he recently had a paracentesis a [facility]. He denies chest pain, abdominal pain, headache, nausea, vomiting, and dizziness. ER course was notable for: (1) Right Scrotal U/S- no evidence of testicular torsion, or acue epididymo- orchitis at this time. Large fluid collection in the region of the right inguinal canal most likely corresponds to ascites within a right inguinal hernia. (2) Ammonia 79.42 (3) Labs, EKG, U/A Recent Travel: n/a PAST MEDICAL HISTORY: Hepatitis C, alcohol abuse, cirrhosis, ascites, esophageal varices, umbilical hernia, s/p small bowel resection PAST SURGICAL HISTORY: s/p small bowel resection Social History: Smoking: denies Alcohol: denies Drugs: denies Family History: Allergies No Known Allergies Allergy (Verified 01/09/17 13:49) HOME MEDICATIONS: Home Medications Medication Instructions Recorded Folic Acid 1 mg PO DAILY 11/14/16 Pantoprazole Sodium [Protonix] 40 mg PO DAILY 11/14/16 Rifaximin [Xifaxan -] 550 mg PO BID 11/14/16 Ferrous Sulfate [Feosol] 325 mg PO DAILY #30 tab 11/24/16 Furosemide [Lasix -] 40 mg PO DAILY tablet 11/24/16 Lactulose (Oral Use) [Cephulac -] 30 gm PO QID #60 dose 11/24/16 Nadolol [Corgard -] 40 mg PO DAILY #30 tablet 11/24/16 Spironolactone [Aldactone -] 50 mg PO DAILY tablet 11/24/16 Gabapentin 100 mg PO TID #30 capsule 01/10/17 REVIEW OF SYSTEMS CONSTITUTIONAL: fever Absent: chills, diaphoresis, generalized weakness, malaise HEENT: Absent: throat pain, throat swelling, difficulty swallowing CARDIOVASCULAR: Absent: chest pain, syncope, palpitations, irregular heart rate, lightheadedness , peripheral edema RESPIRATORY: SOB Absent: cough, dyspnea with exertion, orthopnea, wheezing, stridor, hemoptysis GASTROINTESTINAL: Absent: abdominal distension, nausea, vomiting, constipation, melena, hematochezia GENITOURINARY: Absent: dysuria, frequency, urgency, hesitancy, hematuria, flank pain MUSCULOSKELETAL: Absent: myalgia, arthralgia, joint swelling, back pain, neck pain SKIN: rash, itching on abdomen and chest Absent: pallor HEMATOLOGIC/IMMUNOLOGIC: Absent: easy bleeding, easy bruising, lymphadenopathy, frequent infections NEUROLOGIC: Absent: headache, focal weakness or paresthesias, dizziness, unsteady gait, seizure, mental status changes, bladder or bowel incontinence PSYCHIATRIC: Absent: anxiety, depression, suicidal or homicidal ideation, hallucinations. PHYSICAL EXAMINATION Vital Signs - 24 hr 01/09/17 01/09/17 01/09/17 13:47 18:30 23:13 Temperature 98 F Pulse Rate 82 Pulse Rate [ 78 84 Apical] Respiratory 18 16 16 Rate Blood Pressure 125/72 Blood Pressure 122/68 132/94 [Left Arm] O2 Sat by Pulse 100 96 99 Oximetry (%) GENERAL: In no acute distress, A/o x 3 HEAD: Normal with no signs of trauma. EYES: 1mm pupils, minimally reactive, sclera clear. ENT: oropharynx clear without exudates, moist mucous membranes. NECK: supple. LUNGS: Breath sounds equal, clear to auscultation bilaterally, no wheezes, no crackles, no accessory muscle use. HEART: Regular rate and rhythm, S1, S2 with 3/6 LUSB crescendo-decrescendo murmur ABDOMEN: Soft, Distended, nontender, Ascites, hyperactive bowel sounds, mild excoriations due to itching, midline scar, tatoo on abdomen, visible dilated veins. EXTREMITIES: No asterixis, Dp pulses 2+, RLE wound (healing) granulated, with mild serosanguinous discharge, no palmar erythema SKIN: Warm, dry, normal turgor, no rashes or lesions noted : right inguinal hernia, tender to palpation, limited exam due to pain. Laboratory Results - last 24 hr 01/09/17 01/09/17 01/09/17 19:00 19:00 19:00 WBC 4.4 RBC 3.54 L Hgb 8.7 L Hct 26.6 L MCV 75.1 L MCH 24.6 L MCHC 32.8 RDW 20.3 H Plt Count 97 L MPV 8.7 Neutrophils % 65.9 Lymphocytes % 15.0 Monocytes % 12.7 H Eosinophils % 5.4 H D Basophils % 1.0 PT with INR 16.90 H INR 1.50 H PTT (Actin FS) 33.4 Sodium 142 Potassium 4.0 D Chloride 111 H Carbon Dioxide 23 Anion Gap 8 BUN 11 D Creatinine 0.7 D Creat Clearance w eGFR > 60 Random Glucose 79 Calcium 7.2 L Magnesium 2.0 Total Bilirubin 1.2 H AST 44 H D ALT 36 D Alkaline Phosphatase 242 H D Ammonia Creatine Kinase 80 Troponin I < 0.02 B-Natriuretic Peptide 33.64 Total Protein 6.7 Albumin 2.1 L D Lipase 539 H Urine Color Urine Appearance Urine pH Ur Specific [place] Urine Protein Urine Glucose (UA) Urine Ketones Urine Blood Urine Nitrite Urine Bilirubin Urine Urobilinogen Ur Leukocyte Esterase 01/09/17 01/09/17 19:00 19:15 WBC RBC Hgb Hct MCV MCH MCHC RDW Plt Count MPV Neutrophils % Lymphocytes % Monocytes % Eosinophils % Basophils % PT with INR INR PTT (Actin FS) Sodium Potassium Chloride Carbon Dioxide Anion Gap BUN Creatinine Creat Clearance w eGFR Random Glucose Calcium Magnesium Total Bilirubin AST ALT Alkaline Phosphatase Ammonia 79.42 H Creatine Kinase Troponin I B-Natriuretic Peptide Total Protein Albumin Lipase Urine Color [place] Urine Appearance Slcloudy Urine pH 5.0 Ur Specific [place] 1.035 Urine Protein 1+ H Urine Glucose (UA) Negative Urine Ketones Negative Urine Blood Negative Urine Nitrite Negative Urine Bilirubin 2.0 Urine Urobilinogen 2.0 Ur Leukocyte Esterase Negative ASSESSMENT/PLAN: Patient is a 46 year old male with PMHx of Hepatitis C, alcohol abuse, cirrhosis, ascites, esophageal varices, umbilical hernia, s/p small bowel resection, because of right testicular swelling and pain with SOB. #SOB likely secondary to ascites from Cirrhotic liver disease -ascites, distended abdomen -Nadolol PO 40mg -spirolactone PO 50mg -Lasix 40mg PO daily -Lactulose 30mg q6 - rifaximin 550 PO BID -GI consulted Dr Rivera - keep head end elevated #Elevated Ammonia Level -A/o x 3, -Ammonia 79.42 -continue Lactulose 30mg q6, goal to have 3-4 BM a day -continue rifaximin 550 PO BID #Ascites: -recent paracentesis as per patient at [facility] -continue Nadolol -Lasix 40mg PO, spironolactone 50mg daily -Low suspicion for SBP as pt. has no fevers, non-tender -Abdominal U/S #Right Inguinal Hernia - Right Scrotal U/S- no evidence of testicular torsion, or acue epididymo- orchitis at this time. Large fluid collection in the region of the right inguinal canal most likely corresponds to ascites within a right inguinal hernia. - Not incarcerated - If no improvement with decreasing ascites, consult Sx # Hx of Polysubstance abuse -Utox pending. -cont. Thiamine, Folic acid -will monitor for signs of withdrawal #Prolonged Qtc- 519 - Avoid QT prolonging agents - Chk. Mg 2+ #Thrombocytopenia -likely from cirrhosis -baseline 80-90 -will monitor #Microcytic anemia -iron deficiency -monitor H&H -treat if hemoglobin <7 -cont iron supplements # H/o RLL cellulitis with vascular ulcer. improved since last time. #FEN -Not on any fluids -WNL -Sodium restricted diet #DVT PPX -Heparin SQ TID #Dispo: Med-surge Visit type - Emergency Visit Emergency Visit: Yes ED Registration Date: 01/10/17 Care time: The patient presented to the Emergency Department on the above date and was hospitalized for further evaluation of their emergent condition. - New Patient This patient is new to me today: Yes Date on this admission: 01/10/17 - Critical Care Critical Care patient: No
[2017-01-10] MEDS ORDERED: FUROSEMIDE 40 MG TABLET (FP) PO ONE (02:00)
[2017-01-10] MEDS ORDERED: diphenhydrAMINE HCL 25 MG CAPSULE (FP) PO ONE (02:34)
[2017-01-10 03:25] VITALS: BMI 29.7
[2017-01-10] MEDS ORDERED: morphine SULFATE 4 MG/ML VIAL IVPUSH ONE (03:45)
[2017-01-10] MEDS: GABAPENTIN 100 MG CAPSULE (FP) PO SCH ×4 (04:08→22:20)
[2017-01-10] MEDS ORDERED: GABAPENTIN 100 MG CAPSULE (FP) PO SCH (06:00)
[2017-01-10] MEDS ORDERED: PT OWN MED DRAWER 7, Y5N ONE ×4 (06:19→20:00)
[2017-01-10 07:38] LABS: MCH 24.1 pg (25.7-33.7); MCHC 32.1 g/dl (32.0-35.9); MEAN CELL VOLUME 74.9 fl (80-96); MEAN PLT VOLUME 8.3 fl (7.5-11.1); PLATELET COUNT 93 K/MM3 (134-434); RDW 20.7 % (11.9-15.9); WHITE BLOOD COUNT 3.8 K/mm3 (4.0-10.0)
[2017-01-10 07:52] LABS: ALK PHOS 230 U/L (45-117); ANION GAP 5 (8-16); BILIRUBIN,TOTAL 1.1 mg/dL (0.2-1.0); CALCIUM 7.6 mg/dL (8.5-10.1); CO2 27 mmol/L (21-32); CREATININE 0.8 mg/dL (0.7-1.3); GLUCOSE,RANDOM 95 mg/dL (74-106); MAGNESIUM 1.8 mg/dL (1.8-2.4); SGOT/AST 39 U/L (15-37); SGPT/ALT 35 U/L (12-78); TOT PROT 6.3 g/dl (6.4-8.2)
[2017-01-10 08:24] LABS: INR 1.49 (0.82-1.09); PROTHROMBIN TIME (PATIENT) 16.8 SEC (9.98-11.88)
[2017-01-10] MEDS: THIAMINE HCL 100 MG TABLET (FP) PO SCH (09:31)
[2017-01-10] MEDS: FOLIC ACID 1 MG TABLET (FP) PO SCH (09:32)
[2017-01-10] MEDS: FERROUS SO4 325 MG TABLET (FP) PO SCH (09:32)
[2017-01-10] MEDS: PANTOPRAZOLE 40 MG TABLET (FP) PO SCH (09:32)
[2017-01-10] MEDS: LACTULOSE 20 GM/30 ML UDC (FOR ORAL USE ONLY) PO SCH ×2 (09:34→15:16)
[2017-01-10 09:41] LABS: URINE MARIJUANA THC NEGATIVE ng/ml (CUTOFF=50)
[2017-01-10] MEDS ORDERED: RIFAXIMIN 550 MG TABLET (UD) PO SCH (10:00)
[2017-01-10] MEDS ORDERED: SPIRONOLACTONE 25 MG TABLET (FP) PO SCH (10:00)
[2017-01-10] MEDS ORDERED: FUROSEMIDE 40 MG TABLET (FP) PO SCH (10:00)
--- NOTE | 2017-01-10 10:24 | EKG ---
Test Reason : Blood Pressure : / mmHG Vent. Rate : 086 BPM Atrial Rate : 086 BPM P-R Int : 124 ms QRS Dur : 086 ms QT Int : 434 ms P-R-T Axes : 029 003 035 degrees QTc Int : 519 ms NORMAL SINUS RHYTHM WITH SINUS ARRHYTHMIA PROLONGED QT ABNORMAL ECG WHEN COMPARED WITH ECG OF 22-NOV-2016 15:58, QT HAS LENGTHENED Confirmed by TAMIE LLOYD, TOÑO ([id number]) on 01/10/2017 10:23:58 AM Referred By: Confirmed By:TOÑO WILLETT MD
--- NOTE | 2017-01-10 10:55 | CONSULT ---
- Consultation REQUESTING PROVIDER: Isak Reina - General Surgery CONSULT REQUEST: We have been asked to surgically evaluate this patient for right inguinal hernia. PCP: Ángela Lopez HPI: Called to eval 46yo male with PMHX noted below. Admitted to [facility] secondary to SOB (from ascites) and c/o right testicular swelling and pain that started 20 days ago. Had a right Scrotal U/S- no evidence of testicular torsion, epididymoorchitis. CT scan: abd ascites with fluid collection in the region of the right inguinal canal tracking into scrotum (ascites). No bowel content in inguinal canal or scrotum. PMHx: Hepatitis C, alcohol abuse, cirrhosis, ascites, esophageal varices, umbilical hernia PSHx: Small bowel resection, pacracentesis (ascites) Home Meds: Folic Acid 1 mg PO DAILY 11/14/16 Pantoprazole Sodium [Protonix] 40 mg PO DAILY 11/14/16 Rifaximin [Xifaxan -] 550 mg PO BID 11/14/16 Thiamine HCl [Vitamin B1] 100 mg NR DAILY 11/14/16 Ferrous Sulfate [Feosol] 325 mg PO DAILY #30 tab 11/24/16 Furosemide [Lasix -] 40 mg PO DAILY tablet 11/24/16 Gabapentin [Neurontin -] 100 mg PO TID tab 11/24/16 Lactulose (Oral Use) [Cephulac -] 30 gm PO QID #60 dose 11/24/16 Nadolol [Corgard -] 40 mg PO DAILY #30 tablet 11/24/16 Silver Sulfadiazine 1% Top Cr [Silvadene -] 1 applic TP DAILY #1 jar 11/24/16 Spironolactone [Aldactone -] 50 mg PO DAILY tablet 11/24/16 Allergies: NKDA ROS: GENERAL/CONSTITUTIONAL: No fever or chills. No weakness. CARDIOVASCULAR: No chest pain or shortness of breath. RESPIRATORY: No cough, wheezing, or hemoptysis. GASTROINTESTINAL: No nausea, vomiting, diarrhea or constipation. GENITOURINARY: No dysuria, frequency, or change in urination. MUSCULOSKELETAL: No joint or muscle swelling or pain. No neck or back pain. SKIN: No rash NEUROLOGIC: No headache, vertigo, loss of consciousness, or change in strength/ sensation. ENDOCRINE: No increased thirst. No abnormal weight change. HEMATOLOGIC/LYMPHATIC: No anemia, easy bleeding, or history of blood clots. ALLERGIC/IMMUNOLOGIC: No hives or skin allergy. PE: GENERAL: Awake, alert, oriented, nad ABD: Distended non-tender, +fluid wave, normoactive bowel sounds. No guarding, no rebound. No masses GENITAL: Enlarged rt john-scrotum, ascites, no bowel sounds. No erythema, negative phren's sign. Testicles x2 descended Last Vital Signs Temp Pulse Resp BP Pulse Ox 99.1 F 76 20 115/72 100 01/10/17 09:29 01/10/17 09:29 01/10/17 09:29 01/10/17 09:29 01/10/17 02:30 CBC, BMP 01/10/17 06:45 01/10/17 06:45 INR, PTT INR 1.49 (0.82-1.09) H 01/10/17 06:45 Problem List - Problems (1) Ascites due to alcoholic cirrhosis Assessment/Plan: Recommend paracentesis prn Not a true inguinal hernia. Scrotal swelling due to volume within abd that is now tracking into scrotum. Once volume removed in conjunction with scrotal elevation should resolve swelling. Cont medical management No further surgical intervention Above discussed with Dr. Reina and agrees On behalf of Dr. Reina, thank you for the opportunity to participate in your patient's care Code(s): K70.31 - ALCOHOLIC CIRRHOSIS OF LIVER WITH ASCITES Visit type - Case Type Case Type: ED Admission - Emergency Emergency Visit: Yes ED Registration Date: 01/10/17 Care time: The patient presented to the Emergency Department on the above date and was hospitalized for further evaluation of their emergent condition. - New patient This patient is new to me today: Yes Date on this admission: 01/10/17
[2017-01-10] MEDS: morphine SULFATE 4 MG/ML VIAL IVPUSH PRN ×2 (10:56→18:02)
--- NOTE | 2017-01-10 11:13 | CON.GI ---
Consult Consult Specialty:: GI Referred by:: Hospitalist Ashley - History of Present Illness History of Present Illness: 46 year old male, with PMH of EtOH abuse, cirrhosis, Hep C, ascites, esophageal varices s/p banding 11/2016, SBO, s/p small bowel resection, who presents to the emergency room today complaining of 3 weeks right inguinal and testicular swelling that significantly increased approximately 2 weeks ago. He also notes that his abdomen has been increasingly distended. The patient was recently at [facility] emergency room where he had a paracentesis. However, after being discharged 2 weeks ago insurance did not approve his liver medications and the patient has been noncompliant. The patient notes that he feels like he is choking especially when lying down. Deneis fever,chills, nausea, vomiting, melena,hematochezia, dysphagia, odynophagia. Reports tremors, confusion. The patinet was discharged in November on diuretics and to follow up as op for HCV treatment. 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 (encephalopathy) Gastrointestinal: Yes: Ascites, Esophageal Varices, Other (Hepatitis, umbilical hernia) Hepatobiliary: Yes: Cirrhosis, Hepatitis C Psych: Yes: Addictions (alchohol Current, Heroin revcovery) Rheumatology: No: Fibromyalgia Endocrine: Yes: Other (hyponatremia) Dermatology: Yes: Other (rt lower extremity cellulitis) - Past Surgical History Past Surgical History: Yes: Colectomy - Alcohol/Substance Use Hx Alcohol Use: No (history of) Number of Drinks Daily: 3 History of Substance Use: reports: Heroin Date of Last Use: 11/14/16 (see tox report) - Smoking History Smoking history: Never smoked Have you smoked in the past 12 months: No Aproximately how many cigarettes per day: 3 If you are a former smoker, when did you quit?: 06/11/2013 - Social History Usual Living Arrangement: Alone Home Medications - Allergies Allergies/Adverse Reactions: Allergies Allergy/AdvReac Type Severity Reaction Status Date / Time No Known Allergies Allergy Verified 01/09/17 13:49 - Home Medications Home Medications: Ambulatory Orders Folic Acid 1 mg PO DAILY 11/14/16 Pantoprazole Sodium [Protonix] 40 mg PO DAILY 11/14/16 Rifaximin [Xifaxan -] 550 mg PO BID 11/14/16 Ferrous Sulfate [Feosol] 325 mg PO DAILY #30 tab 11/24/16 Furosemide [Lasix -] 40 mg PO DAILY tablet 11/24/16 Lactulose (Oral Use) [Cephulac -] 30 gm PO QID #60 dose 11/24/16 Nadolol [Corgard -] 40 mg PO DAILY #30 tablet 11/24/16 Spironolactone [Aldactone -] 50 mg PO DAILY tablet 11/24/16 Gabapentin 100 mg PO TID #30 capsule 01/10/17 Home Medications (free text): not taking due to lack of insurance coverage Family Disease History - Family Disease History Family History: Unremarkable (non-contributory) Review of Systems Findings/Remarks: please refer to H&P Physical Exam-GI Vital Signs: Vital Signs Temperature 99.1 F 01/10/17 09:29 Pulse Rate 76 01/10/17 09:29 Respiratory Rate 20 01/10/17 09:29 Blood Pressure 115/72 01/10/17 09:29 O2 Sat by Pulse Oximetry (%) 100 01/10/17 02:30 Constitutional: Yes: No Distress, Calm Eyes: Yes: Conjunctiva Clear HENT: Yes: Atraumatic Neck: Yes: Supple Cardiovascular: Yes: Regular Rate and Rhythm Respiratory: Yes: Regular Gastrointestinal Inspection: Yes: Ascites, Distention ...Auscultate: Yes: Normoactive Bowel Sounds ...Palpate: No: Firm/Rigid, Guarding, Tenderness, Tenderness, Epigastium, Tenderness, Rebound Genitourinary: Yes: Scrotal Edema Integumentary: No: Jaundice Neurological: Yes: Oriented (knows year, month, "few days after thanksgi"), Confusion, Lethargy. No: Tremors Labs: CBC, BMP 01/10/17 06:45 01/10/17 06:45 INR, PTT INR 1.49 (0.82-1.09) H 01/10/17 06:45 Laboratory Results - last 24 hr 01/09/17 01/09/17 01/09/17 19:00 19:00 19:00 WBC 4.4 RBC 3.54 L Hgb 8.7 L Hct 26.6 L MCV 75.1 L MCH 24.6 L MCHC 32.8 RDW 20.3 H Plt Count 97 L MPV 8.7 Neutrophils % 65.9 Lymphocytes % 15.0 Monocytes % 12.7 H Eosinophils % 5.4 H D Basophils % 1.0 PT with INR 16.90 H INR 1.50 H PTT (Actin FS) 33.4 Sodium 142 Potassium 4.0 D Chloride 111 H Carbon Dioxide 23 Anion Gap 8 BUN 11 D Creatinine 0.7 D Creat Clearance w eGFR > 60 Random Glucose 79 Calcium 7.2 L Phosphorus Magnesium 2.0 Total Bilirubin 1.2 H AST 44 H D ALT 36 D Alkaline Phosphatase 242 H D Ammonia Creatine Kinase 80 Troponin I < 0.02 B-Natriuretic Peptide 33.64 Total Protein 6.7 Albumin 2.1 L D Lipase 539 H Urine Color Urine Appearance Urine pH Ur Specific [place] Urine Protein Urine Glucose (UA) Urine Ketones Urine Blood Urine Nitrite Urine Bilirubin Urine Urobilinogen Ur Leukocyte Esterase Opiates Screen Methadone Screen Barbiturate Screen Phencyclidine Screen Ur Amphetamines Screen MDMA (Ecstasy) Screen Benzodiazepines Screen Cocaine Screen U Marijuana (THC) Screen 01/09/17 01/09/17 01/10/17 19:00 19:15 06:45 WBC 3.8 L RBC 3.37 L Hgb 8.1 L Hct 25.2 L MCV 74.9 L MCH 24.1 L MCHC 32.1 RDW 20.7 H Plt Count 93 L MPV 8.3 Neutrophils % Lymphocytes % Monocytes % Eosinophils % Basophils % PT with INR INR PTT (Actin FS) Sodium Potassium Chloride Carbon Dioxide Anion Gap BUN Creatinine Creat Clearance w eGFR Random Glucose Calcium Phosphorus Magnesium Total Bilirubin AST ALT Alkaline Phosphatase Ammonia 79.42 H Creatine Kinase Troponin I B-Natriuretic Peptide Total Protein Albumin Lipase Urine Color [place] Urine Appearance Slcloudy Urine pH 5.0 Ur Specific [place] 1.035 Urine Protein 1+ H Urine Glucose (UA) Negative Urine Ketones Negative Urine Blood Negative Urine Nitrite Negative Urine Bilirubin 2.0 Urine Urobilinogen 2.0 Ur Leukocyte Esterase Negative Opiates Screen Methadone Screen Barbiturate Screen Phencyclidine Screen Ur Amphetamines Screen MDMA (Ecstasy) Screen Benzodiazepines Screen Cocaine Screen U Marijuana (THC) Screen 01/10/17 01/10/17 01/10/17 06:45 06:45 08:15 WBC RBC Hgb Hct MCV MCH MCHC RDW Plt Count MPV Neutrophils % Lymphocytes % Monocytes % Eosinophils % Basophils % PT with INR 16.80 H INR 1.49 H PTT (Actin FS) Sodium 141 Potassium 3.5 Chloride 109 H Carbon Dioxide 27 Anion Gap 5 L BUN 9 Creatinine 0.8 Creat Clearance w eGFR > 60 Random Glucose 95 D Calcium 7.6 L Phosphorus 3.0 Magnesium 1.8 Total Bilirubin 1.1 H AST 39 H ALT 35 Alkaline Phosphatase 230 H Ammonia Creatine Kinase Troponin I B-Natriuretic Peptide Total Protein 6.3 L Albumin 2.0 L Lipase Urine Color Urine Appearance Urine pH Ur Specific [place] Urine Protein Urine Glucose (UA) Urine Ketones Urine Blood Urine Nitrite Urine Bilirubin Urine Urobilinogen Ur Leukocyte Esterase Opiates Screen Positive Methadone Screen Negative Barbiturate Screen Negative Phencyclidine Screen Negative Ur Amphetamines Screen Negative MDMA (Ecstasy) Screen Negative Benzodiazepines Screen Negative Cocaine Screen Negative U Marijuana (THC) Screen Negative Imaging - Results Cat Scan: Report Reviewed Ultrasound: Report Reviewed (scrotal) Assessment/Plan A 46 yom with active HCV infection, advanced liver disease, portal hypertension with esophagieal varices and ascites readmitted for worsening ascites and r. scrotal swelling. Likely due to lack of medications. No overt sings of infection , or renal insufficiency. Mild hyponatremia and mild hepatitis with cholestasis on bloodwork. Grade II hepatic encephalopathy Agree with restarting aldactone, Lasix, Nadolol, lactulose and Rifaximin 2 gm Na and fluid (1 qt/day) restriction Case management to evaluate for health insurance/drug coverage options, if any.
[2017-01-10] MEDS: RIFAXIMIN 550 MG TABLET (UD) PO SCH ×2 (12:14→22:20)
[2017-01-10] MEDS: NADOLOL 40 MG TABLET (FP) PO SCH (12:14)
[2017-01-10] MEDS: FUROSEMIDE 40 MG TABLET (FP) PO SCH ×3 (12:15→18:38)
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
--- NOTE | 2017-01-10 15:33 | MSN ---
Progress Note (short form) - Note Progress Note: SUBJECTIVE Pt is a 46 y/o M with PMHx of alcohol abuse, HepC, ascites, cirrhosis, portal HTN, esophogeal varices, umbilical hernia, and RLE cellulitis who presented with R testicular pain and swelling, worsening SOB that began 1 week ago, and reported fever of 102 F 2 nights ago. He noticed the testicular swelling 2 weeks ago and increasing pain prompted him to come to the ED. Described the pain as a sharp, non-radiating, 08/22. Pt endorses worsening dyspnea on exertion (gets out of breathe with walking 2 blocks or 2 flights of stairs) and orthopnea (uses 2-3 pillows to sleep at night). Reports experiencing cold symptoms (cough, sneezing) for the past couple of days, itching of the abdomen, and pain on the R lower extremity. Also states having >5 BM/day. This morning pt denies any CP, SOB, CHOWDHURY, dizziness, fever, chills, nausea, vomiting, constipation, or any urinary symptoms. OBJECTIVE Last Vital Signs Temp Pulse Resp BP Pulse Ox 98.5 F 64 20 100/62 98 01/10/17 15:03 01/10/17 15:03 01/10/17 15:03 01/10/17 15:03 01/10/17 10:00 GEN: AOX3, NAD HEENT: PERRLA, EOMI CV: RRR S1 S2 3/6 systolic murmur LUSB LUNG: bibasilar crackles ABD: hyperactive bowel sounds, firm, distended (ascites), NT, shifting dullness , surgical scar down the midline, echymosis in RLQ, mild TTP RLQ MSK: RLE - cellulitis present on bertrand and lateral aspect - healing well in comparison to previous visit; not actively bleeding; gauze had serosanginous drainage; pulses and sensation intact; tender to palpation; dressing intact : R scrotal swelling, warm and tender to touch NEURO: CN II-XII grossly intact Laboratory Last Values WBC 3.8 K/mm3 (4.0-10.0) L 01/10/17 06:45 RBC 3.37 M/mm3 (4.00-5.60) L 01/10/17 06:45 Hgb 8.1 GM/dL (11.7-16.9) L 01/10/17 06:45 Hct 25.2 % (35.4-49) L 01/10/17 06:45 MCV 74.9 fl (80-96) L 01/10/17 06:45 MCH 24.1 pg (25.7-33.7) L 01/10/17 06:45 MCHC 32.1 g/dl (32.0-35.9) 01/10/17 06:45 RDW 20.7 % (11.9-15.9) H 01/10/17 06:45 Plt Count 93 K/MM3 (134-434) L 01/10/17 06:45 MPV 8.3 fl (7.5-11.1) 01/10/17 06:45 Neutrophils % 65.9 % (42.8-82.8) 01/09/17 19:00 Lymphocytes % 15.0 % (8-40) 01/09/17 19:00 Monocytes % 12.7 % (3.8-10.2) H 01/09/17 19:00 Eosinophils % 5.4 % (0-4.5) H D 01/09/17 19:00 Basophils % 1.0 % (0-2.0) 01/09/17 19:00 PT with INR 16.80 SEC (9.98-11.88) H 01/10/17 06:45 INR 1.49 (0.82-1.09) H 01/10/17 06:45 PTT (Actin FS) 33.4 SECONDS (26.9-34.4) 01/09/17 19:00 Sodium 141 mmol/L (136-145) 01/10/17 06:45 Potassium 3.5 mmol/L (3.5-5.1) 01/10/17 06:45 Chloride 109 mmol/L (98-107) H 01/10/17 06:45 Carbon Dioxide 27 mmol/L (21-32) 01/10/17 06:45 Anion Gap 5 (8-16) L 01/10/17 06:45 BUN 9 mg/dL (7-18) 01/10/17 06:45 Creatinine 0.8 mg/dL (0.7-1.3) 01/10/17 06:45 Creat Clearance w eGFR > 60 (>60) 01/10/17 06:45 Random Glucose 95 mg/dL (74-106) D 01/10/17 06:45 Calcium 7.6 mg/dL (8.5-10.1) L 01/10/17 06:45 Phosphorus 3.0 mg/dL (2.5-4.9) 01/10/17 06:45 Magnesium 1.8 mg/dL (1.8-2.4) 01/10/17 06:45 Total Bilirubin 1.1 mg/dL (0.2-1.0) H 01/10/17 06:45 AST 39 U/L (15-37) H 01/10/17 06:45 ALT 35 U/L (12-78) 01/10/17 06:45 Alkaline Phosphatase 230 U/L (45-117) H 01/10/17 06:45 Ammonia 79.42 umol/L (11-32) H 01/09/17 19:00 Creatine Kinase 80 IU/L (39-308) 01/09/17 19:00 Troponin I < 0.02 ng/ml (0.00-0.05) 01/09/17 19:00 B-Natriuretic Peptide 33.64 pg/ml (5-125) 01/09/17 19:00 Total Protein 6.3 g/dl (6.4-8.2) L 01/10/17 06:45 Albumin 2.0 g/dl (3.4-5.0) L 01/10/17 06:45 Lipase 539 U/L (73-393) H 01/09/17 19:00 Urine Color [place] 01/09/17 19:15 Urine Appearance Slcloudy 01/09/17 19:15 Urine pH 5.0 (5.0-8.0) 01/09/17 19:15 Ur Specific [place] 1.035 (1.001-1.035) 01/09/17 19:15 Urine Protein 1+ (NEGATIVE) H 01/09/17 19:15 Urine Glucose (UA) Negative (NEGATIVE) 01/09/17 19:15 Urine Ketones Negative (NEGATIVE) 01/09/17 19:15 Urine Blood Negative (NEGATIVE) 01/09/17 19:15 Urine Nitrite Negative (NEGATIVE) 01/09/17 19:15 Urine Bilirubin 2.0 (NEGATIVE) 01/09/17 19:15 Urine Urobilinogen 2.0 mg/dL (0.2-1.0) 01/09/17 19:15 Ur Leukocyte Esterase Negative (NEGATIVE) 01/09/17 19:15 Opiates Screen Positive ng/ml (LRJINB=545) 01/10/17 08:15 Methadone Screen Negative ng/ml (GYVJOJ=205) 01/10/17 08:15 Barbiturate Screen Negative ng/ml (XTYDGR=086) 01/10/17 08:15 Phencyclidine Screen Negative ng/ml (CUTOFF=25) 01/10/17 08:15 Ur Amphetamines Screen Negative ng/ml (JWEVOA=004) 01/10/17 08:15 MDMA (Ecstasy) Screen Negative ng/ml (KYISAX=872) 01/10/17 08:15 Benzodiazepines Screen Negative ng/ml (GINUTQ=450) 01/10/17 08:15 Cocaine Screen Negative ng/ml (RATQFF=462) 01/10/17 08:15 U Marijuana (THC) Screen Negative ng/ml (CUTOFF=50) 01/10/17 08:15 Home Medications Medication Instructions Recorded Folic Acid 1 mg PO DAILY 11/14/16 Pantoprazole Sodium [Protonix] 40 mg PO DAILY 11/14/16 Rifaximin [Xifaxan -] 550 mg PO BID 11/14/16 Ferrous Sulfate [Feosol] 325 mg PO DAILY #30 tab 11/24/16 Furosemide [Lasix -] 40 mg PO DAILY tablet 11/24/16 Lactulose (Oral Use) [Cephulac -] 30 gm PO QID #60 dose 11/24/16 Nadolol [Corgard -] 40 mg PO DAILY #30 tablet 11/24/16 Spironolactone [Aldactone -] 50 mg PO DAILY tablet 11/24/16 Gabapentin 100 mg PO TID #30 capsule 01/10/17 AP Pt is a 46 y/o M with PMHx of alcohol abuse, HepC, ascites, cirrhosis, portal HTN, esophogeal varices, umbilical hernia, and RLE cellulitis who presented with R testicular pain and swelling, worsening SOB that began 1 week ago, and reported fever of 102 F 2 nights ago, admitted for inguinal hernia and ascites. 1. Right scrotal swelling -CT abd/pelvis - abdominal ascites with fluid collection in region of R inguinal canal tracking into scrotum; no bowel content in inguinal hernia; diffuse bowel thickening consistent with portal enteropathy; evidence of portal HTN, numerous esophageal/paraesophageal varices -Right scrotal US - no evidence of testicular torsion or acute epidymo- orchitis; large fluid collection in region of R inguinal canal, corresponding to ascites in R inguinal hernia -likely not a true inguinal or incarcerated hernia -pain control with morphine -scrotal elevation as well as paracentesis should help reduce the swelling -IR guided paracentesis; 1025 cc of fluid removed via previous paracentesis done last month at [facility] -surgery consulted 2. SOB 2/2 to ascites and cirrhosis -seems to be better according to pt -continue nadolol, spirinolactone, lasix, rifaximin -therapeutic paracentesis and cell count -GI consulted 3. Diarrhea ->5 loose watery BM/day -hold lactulose to titrate for 2-3 BMs 4. Right Lower extremity cellulitis -vascular surgery consulted to guide dressing changes and wound care 5. Thrombocytopenia -likely due to cirrhosis -baseline 80-90s -continue monitoring 6. Elevated ammonia level -Ammonia 79.42 -AOX3 -continue rifaximin 7. Microcytic anemia -iron deficiency; not actively bleeding -monitor H&H -continue iron supplements 8. FEN -No IVFs -lytes:wnl; replete as necessary -Low Na diet (2gm), fluid restriction (1qt/d) 9. PPx -DVT: Heparin SQ TID -No GI PPx Dispo: Continue monitoring Sagrario Garcia, MS3
--- NOTE | 2017-01-10 16:50 | PN ---
Teaching Attending Note Name of Resident: Bhavesh Mcnamara ATTENDING PHYSICIAN STATEMENT I saw and evaluated the patient. I reviewed the resident's note and discussed the case with the resident. I agree with the resident's findings and plan as documented. SUBJECTIVE:c/o scrotal swelling, states pain is excruciating. also c/o diarrhea (6/day). states he is compliant with meds except rifaxmin due to cost. had paracentesis earlier this month. about 1 L removed. unclear if + SBP. appears to been done for therapeutic reasons OBJECTIVE: Last Vital Signs Temp Pulse Resp BP Pulse Ox 98.5 F 64 20 100/62 98 01/10/17 15:03 01/10/17 15:03 01/10/17 15:03 01/10/17 15:03 01/10/17 10:00 General NAD, A&O x3 Lungs crackles B/L bases no wheezing Abdomen soft distended +tympanic to percussion. normoactive BS Groin tender R scrotum. enlarged and soft. no erythema or warmth not reducible Extremities no pedal edema ASSESSMENT AND PLAN: 46yoM wih PMH HCV and ETOH cirrhosis, esophageal varices, portal HTN and small bowel resection presented to the Er with scrotal swelling 1. Scrotal swelling- likely due to tracking of abdominal fluid into scrotal cavity. imaging reviewed and had surgery evaluate to ensure no bowel or risk of incarcerated hernia intermittently present. elevate scrotum. therapeutic paracentesis. 2. diarrhea- lactulose induced. ammonia level is elevated but clinically does not appear to signs of hepatic encephalopathy. will hold lactulose for now and re-assess. will titrate to 2-3BM daily. 3. Cirrhosis due to HCV and ETOH- claims to be on liver transplant list and sober for 2 months. unable to afford rifaximin. will see if can obtain pre- approval. spirolactone dosing increased to 75mg BID. hepatic f/u as outpatient 4. thrombocytopenia- at baseline. no signs of bleeding 5. esophageal varices- on nadolol 6. DVT ppx SCD. hold pharmacologic in setting of thrombocytopenia
[2017-01-10] MEDS: COLLAGENASE CLOSTRIDIUM HIST. 30 GRAMS TUBE TP SCH (18:39)
--- NOTE | 2017-01-10 21:03 | PN ---
Progress Note (short form) - Note Progress Note: Vascular Surgery Pt seen and examined. Well known to wound care clinic. Very non compliant with visits. RLE wounds look better, with certain areas healed. Open wounds are pink with granulation. Cont santyl and compression with JAVIER . Sen alexander DO
[2017-01-10] MEDS: SPIRONOLACTONE 25 MG TABLET (FP) PO SCH (22:20)
[2017-01-10 23:43] LABS: PERITONEAL FLUID LYMPHOCYTE 93 %; PERITONEAL FLUID MESOTHELIAL 2 %; PERITONEAL FLUID MONOCYTE 2 %; PERITONEAL FLUID NEUTROPHIL 3 %
[2017-01-11] MEDS: morphine SULFATE 4 MG/ML VIAL IVPUSH PRN ×4 (00:24→21:41)
[2017-01-11] MEDS: FUROSEMIDE 40 MG TABLET (FP) PO SCH ×2 (06:05→14:23)
[2017-01-11] MEDS: GABAPENTIN 100 MG CAPSULE (FP) PO SCH ×3 (06:05→21:41)
[2017-01-11 08:44] LABS: BASOPHIL 1.2 % (0-2.0); EOSINOPHIL 6.4 % (0-4.5); MCH 24.1 pg (25.7-33.7); MCHC 32.7 g/dl (32.0-35.9); MEAN CELL VOLUME 73.5 fl (80-96); MEAN PLT VOLUME 8.2 fl (7.5-11.1); NEUTROPHILS 59.4 % (42.8-82.8); PLATELET COUNT 106 K/MM3 (134-434); RDW 20.1 % (11.9-15.9); WHITE BLOOD COUNT 4.3 K/mm3 (4.0-10.0)
[2017-01-11 08:59] LABS: INR 1.64 (0.82-1.09); PROTHROMBIN TIME (PATIENT) 18.5 SEC (9.98-11.88)
[2017-01-11 09:16] LABS: ALBUMIN 1.8 g/dl (3.4-5.0); ANION GAP 8 (8-16); BILIRUBIN,DIRECT 0.5 mg/dL (0.0-0.2); CALCIUM 7.6 mg/dL (8.5-10.1); CO2 26 mmol/L (21-32); GLUCOSE,RANDOM 76 mg/dL (74-106); SGOT/AST 31 U/L (15-37); SGPT/ALT 28 U/L (12-78)
[2017-01-11 09:19] LABS: ALK PHOS 193 U/L (45-117); BILIRUBIN,TOTAL 1.1 mg/dL (0.2-1.0); CREATININE 0.6 mg/dL (0.7-1.3); TOT PROT 5.7 g/dl (6.4-8.2)
[2017-01-11] MEDS ORDERED: CEFTRIAXONE 1 G/50 ML PREMIX 50 ML IVPB ONE ×2 (10:45→14:15)
[2017-01-11] MEDS: FERROUS SO4 325 MG TABLET (FP) PO SCH (10:47)
[2017-01-11] MEDS: PANTOPRAZOLE 40 MG TABLET (FP) PO SCH (10:47)
[2017-01-11] MEDS: FOLIC ACID 1 MG TABLET (FP) PO SCH (10:47)
[2017-01-11] MEDS: THIAMINE HCL 100 MG TABLET (FP) PO SCH (10:47)
[2017-01-11] MEDS: RIFAXIMIN 550 MG TABLET (UD) PO SCH ×2 (10:48→21:43)
--- NOTE | 2017-01-11 11:03 | PN ---
Progress Note, Physician History of Present Illness: S/p therapeutic parasentesis - only ? 1 L removed. WBC 91, Albulmin 0. c/o testicular pain - Current Medication List Current Medications: Active Medications Collagenase (Santyl -) 1 applic TP DAILY [facility] Last Admin: 01/10/17 18:39 Dose: 1 applic Ferrous Sulfate (Feosol -) 325 mg PO DAILY [facility] Last Admin: 01/11/17 10:47 Dose: 325 mg Folic Acid (Folic Acid -) 1 mg PO DAILY [facility] Last Admin: 01/11/17 10:47 Dose: 1 mg Furosemide (Lasix -) 40 mg PO BID@0600,1400 [facility] Last Admin: 01/11/17 06:05 Dose: 40 mg Gabapentin (Neurontin -) 100 mg PO TID [facility] Last Admin: 01/11/17 06:05 Dose: 100 mg CEFTRIAXONE 1 G/50 ML PREMIX (Ceftriaxone 1 Gm-D5w Bag) 50 mls @ 100 mls/hr IVPB ONCE ONE Stop: 01/11/17 11:14 Lactulose (Cephulac (Oral Use)) 30 gm PO QID [facility] Last Admin: 01/10/17 15:16 Dose: Not Given Morphine Sulfate (Morphine Sulfate) 2 mg IVPUSH Q6H PRN PRN Reason: PAIN Last Admin: 01/11/17 08:02 Dose: 2 mg Nadolol (Corgard -) 40 mg PO DAILY [facility] Last Admin: 01/10/17 12:14 Dose: 40 mg Pantoprazole Sodium (Protonix -) 40 mg PO DAILY [facility] Last Admin: 01/11/17 10:47 Dose: 40 mg Rifaximin (Xifaxan -) 550 mg PO BID [facility] Last Admin: 01/11/17 10:48 Dose: 550 mg Spironolactone (Aldactone -) 75 mg PO BID [facility] Last Admin: 01/10/17 22:20 Dose: 75 mg Thiamine HCl (Vitamin B1 -) 100 mg PO DAILY [facility] Last Admin: 01/11/17 10:47 Dose: 100 mg - Objective Vital Signs: Vital Signs Temperature 98.6 F 01/11/17 06:00 Pulse Rate 67 01/11/17 06:00 Respiratory Rate 18 01/11/17 06:00 Blood Pressure 112/67 01/11/17 06:00 O2 Sat by Pulse Oximetry (%) 98 01/10/17 21:00 Constitutional: Yes: No Distress HENT: Yes: Atraumatic Neck: Yes: Supple Cardiovascular: Yes: Regular Rate and Rhythm Gastrointestinal: Yes: Ascites, Distention. No: Melena, Rectal Bleeding, Tenderness, Vomiting Neurological: Yes: Alert, Oriented Labs: CBC, BMP 01/11/17 08:00 01/11/17 08:00 INR, PTT INR 1.64 (0.82-1.09) H 01/11/17 08:00 Laboratory Results - last 24 hr 01/10/17 01/11/17 01/11/17 16:30 08:00 08:00 WBC 4.3 RBC 3.56 L Hgb 8.6 L Hct 26.2 L MCV 73.5 L MCH 24.1 L MCHC 32.7 RDW 20.1 H Plt Count 106 L MPV 8.2 Neutrophils % 59.4 Lymphocytes % 22.2 D Monocytes % 10.8 H Eosinophils % 6.4 H Basophils % 1.2 PT with INR 18.50 H INR 1.64 H Sodium Potassium Chloride Carbon Dioxide Anion Gap BUN Creatinine Creat Clearance w eGFR Random Glucose Calcium Total Bilirubin Direct Bilirubin AST ALT Alkaline Phosphatase Total Protein Albumin Peritoneal WBC 91 Peritoneal RBC 604 Periton Neutrophils 3 Periton Lymphocytes 93 Peritoneal Monocytes 2 Periton Mesothelial 2 Peritoneal Tot Protein 1 Peritoneal Albumin 0 Peritoneal LDH 37 Peritoneal Glucose 103 Peritoneal Amylase 43 01/11/17 08:00 WBC RBC Hgb Hct MCV MCH MCHC RDW Plt Count MPV Neutrophils % Lymphocytes % Monocytes % Eosinophils % Basophils % PT with INR INR Sodium 140 Potassium 3.7 Chloride 106 Carbon Dioxide 26 Anion Gap 8 BUN 9 Creatinine 0.6 L D Creat Clearance w eGFR > 60 Random Glucose 76 Calcium 7.6 L Total Bilirubin 1.1 H Direct Bilirubin 0.5 H D AST 31 D ALT 28 Alkaline Phosphatase 193 H Total Protein 5.7 L Albumin 1.8 L Peritoneal WBC Peritoneal RBC Periton Neutrophils Periton Lymphocytes Peritoneal Monocytes Periton Mesothelial Peritoneal Tot Protein Peritoneal Albumin Peritoneal LDH Peritoneal Glucose Peritoneal Amylase Problem List - Problems (1) Ascites due to alcoholic cirrhosis Code(s): K70.31 - ALCOHOLIC CIRRHOSIS OF LIVER WITH ASCITES (2) Liver cirrhosis Code(s): K74.60 - UNSPECIFIED CIRRHOSIS OF LIVER Qualifiers: Hepatic cirrhosis type: alcoholic cirrhosis Ascites presence: with ascites Qualified Code(s): K70.31 - Alcoholic cirrhosis of liver with ascites (3) Encephalopathy Code(s): G93.40 - ENCEPHALOPATHY, UNSPECIFIED (4) Polysubstance abuse Code(s): F19.10 - OTHER PSYCHOACTIVE SUBSTANCE ABUSE, UNCOMPLICATED Assessment/Plan Aldactone, Lasix increased yesterday to to 150/80 respectively. Monitor BUN, Cr , K Continue Nadalol Lactulose to achive ~ 4 bms/day 2 gm Na and fluid (1 qt/day) restriction Parasentesis PRN, if no access to diuretics, or if diuretics ineffective, or maxed out Case management to evaluate for health insurance/drug coverage options, if any.
[2017-01-11] MEDS: SPIRONOLACTONE 25 MG TABLET (FP) PO SCH ×2 (11:21→21:38)
[2017-01-11] MEDS: NADOLOL 40 MG TABLET (FP) PO SCH (11:21)
--- NOTE | 2017-01-11 13:18 | PN ---
Teaching Attending Note Name of Resident: Bhavesh Mcnamara ATTENDING PHYSICIAN STATEMENT I saw and evaluated the patient. I reviewed the resident's note and discussed the case with the resident. I agree with the resident's findings and plan as documented. SUBJECTIVE:c/o scrotal pain. states no improvement since yesterday. some abdominal relief since paracentesis yesterday. denies Cp, SOB, fever, chills, N/ V/C/D, urinary frequency, dysuria OBJECTIVE: Last Vital Signs Temp Pulse Resp BP Pulse Ox 98.6 F 67 18 112/67 98 01/11/17 06:00 01/11/17 06:00 01/11/17 06:00 01/11/17 06:00 01/10/17 21:00 General NAD, A&O x3 Lungs crackles B/L bases no wheezing Abdomen soft distended. normoactive BS. bandage to RLQ c/d/i Groin swelling R scrotum. enlarged and soft. no erythema or warmth not reducible , not tender Extremities no pedal edema ASSESSMENT AND PLAN: 46yoM wih PMH HCV and ETOH cirrhosis, esophageal varices, portal HTN and small bowel resection presented to the Er with scrotal swelling 1. Scrotal swelling- likely due to tracking of abdominal fluid into scrotal cavity. mild improvement however not resolved. pt is not compliant with scrotal elevation as its "annoying". informed that this may take some time to improve. encouraged to elevate adn comply with recommendations. 2. diarrhea- lactulose induced. only 2 BM yesterday, none today. re-start lactulose. titrate to 3 BM daily. 3. Cirrhosis due to HCV and ETOH- s/p paracentesis with 3L removal. Fluid negative for SBP. lasix increased to BID dosing. cont paracentesis as needed. claims to be on liver transplant list and sober for 2 months. unable to afford rifaximin. will see if can obtain pre-approval. spironlactone dosing increased to 75mg BID. hepatic f/u as outpatient 4. +UCx- pt is asymptomatic. UA negative on presentation. no indication for abx at this time 5. thrombocytopenia- at baseline. no signs of bleeding 6. esophageal varices- on nadolol 7. DVT ppx SCD. hold pharmacologic in setting of thrombocytopenia
--- NOTE | 2017-01-11 14:17 | MSN ---
Progress Note (short form) - Note Progress Note: SUBJECTIVE Pt seen and examined at bedside. Pt complained of a 8/10 non-radiating pressure- like pain in the scrotum and abdominal pain near the paracentesis site. Feels better after the fluid removal but states no improvement with scrotal swelling, likely due to noncompliance with scrotal elevation. States hasn't had a BM sine yesterday afternoon. Denies any CP, palpitations, SOB, CHOW[place]URY, dizziness, nausea, vomiting, constipation, diarrhea or any urinary symptoms. OBJECTIVE Last Vital Signs Temp Pulse Resp BP Pulse Ox 97.7 F 78 18 100/62 98 01/11/17 10:30 01/11/17 10:30 01/11/17 10:30 01/11/17 10:30 01/10/17 21:00 GEN: AOX3, NAD CV: RRR S1 S2 3/6 systolic murmur LUSB LUNG: CTA b/l ABD: normoactive bowel sounds, soft, distended (ascites), TTP RUQ, RLQ, surgical scar down the midline, echymosis in RLQ MSK: RLE - cellulitis present on bertrand and lateral aspect - healing well in comparison to previous visit; not actively bleeding; gauze had serosanginous drainage; pulses and sensation intact; tender to palpation; dressing intact : R scrotal swelling, warm and mildly tender to touch NEURO: CN II-XII grossly intact Laboratory Last Values WBC 4.3 K/mm3 (4.0-10.0) 01/11/17 08:00 RBC 3.56 M/mm3 (4.00-5.60) L 01/11/17 08:00 Hgb 8.6 GM/dL (11.7-16.9) L 01/11/17 08:00 Hct 26.2 % (35.4-49) L 01/11/17 08:00 MCV 73.5 fl (80-96) L 01/11/17 08:00 MCH 24.1 pg (25.7-33.7) L 01/11/17 08:00 MCHC 32.7 g/dl (32.0-35.9) 01/11/17 08:00 RDW 20.1 % (11.9-15.9) H 01/11/17 08:00 Plt Count 106 K/MM3 (134-434) L 01/11/17 08:00 MPV 8.2 fl (7.5-11.1) 01/11/17 08:00 Neutrophils % 59.4 % (42.8-82.8) 01/11/17 08:00 Lymphocytes % 22.2 % (8-40) D 01/11/17 08:00 Monocytes % 10.8 % (3.8-10.2) H 01/11/17 08:00 Eosinophils % 6.4 % (0-4.5) H 01/11/17 08:00 Basophils % 1.2 % (0-2.0) 01/11/17 08:00 PT with INR 18.50 SEC (9.98-11.88) H 01/11/17 08:00 INR 1.64 (0.82-1.09) H 01/11/17 08:00 PTT (Actin FS) 33.4 SECONDS (26.9-34.4) 01/09/17 19:00 Sodium 140 mmol/L (136-145) 01/11/17 08:00 Potassium 3.7 mmol/L (3.5-5.1) 01/11/17 08:00 Chloride 106 mmol/L (98-107) 01/11/17 08:00 Carbon Dioxide 26 mmol/L (21-32) 01/11/17 08:00 Anion Gap 8 (8-16) 01/11/17 08:00 BUN 9 mg/dL (7-18) 01/11/17 08:00 Creatinine 0.6 mg/dL (0.7-1.3) L D 01/11/17 08:00 Creat Clearance w eGFR > 60 (>60) 01/11/17 08:00 Random Glucose 76 mg/dL (74-106) 01/11/17 08:00 Calcium 7.6 mg/dL (8.5-10.1) L 01/11/17 08:00 Phosphorus 3.0 mg/dL (2.5-4.9) 01/10/17 06:45 Magnesium 1.8 mg/dL (1.8-2.4) 01/10/17 06:45 Total Bilirubin 1.1 mg/dL (0.2-1.0) H 01/11/17 08:00 Direct Bilirubin 0.5 mg/dL (0.0-0.2) H D 01/11/17 08:00 AST 31 U/L (15-37) D 01/11/17 08:00 ALT 28 U/L (12-78) 01/11/17 08:00 Alkaline Phosphatase 193 U/L (45-117) H 01/11/17 08:00 Ammonia 79.42 umol/L (11-32) H 01/09/17 19:00 Creatine Kinase 80 IU/L (39-308) 01/09/17 19:00 Troponin I < 0.02 ng/ml (0.00-0.05) 01/09/17 19:00 B-Natriuretic Peptide 33.64 pg/ml (5-125) 01/09/17 19:00 Total Protein 5.7 g/dl (6.4-8.2) L 01/11/17 08:00 Albumin 1.8 g/dl (3.4-5.0) L 01/11/17 08:00 Lipase 539 U/L (73-393) H 01/09/17 19:00 Urine Color [place] 01/09/17 19:15 Urine Appearance Slcloudy 01/09/17 19:15 Urine pH 5.0 (5.0-8.0) 01/09/17 19:15 Ur Specific [place] 1.035 (1.001-1.035) 01/09/17 19:15 Urine Protein 1+ (NEGATIVE) H 01/09/17 19:15 Urine Glucose (UA) Negative (NEGATIVE) 01/09/17 19:15 Urine Ketones Negative (NEGATIVE) 01/09/17 19:15 Urine Blood Negative (NEGATIVE) 01/09/17 19:15 Urine Nitrite Negative (NEGATIVE) 01/09/17 19:15 Urine Bilirubin 2.0 (NEGATIVE) 01/09/17 19:15 Urine Urobilinogen 2.0 mg/dL (0.2-1.0) 01/09/17 19:15 Ur Leukocyte Esterase Negative (NEGATIVE) 01/09/17 19:15 Peritoneal WBC 91 /mm3 01/10/17 16:30 Peritoneal RBC 604 /mm3 01/10/17 16:30 Periton Neutrophils 3 % 01/10/17 16:30 Periton Lymphocytes 93 % 01/10/17 16:30 Peritoneal Monocytes 2 % 01/10/17 16:30 Periton Mesothelial 2 % 01/10/17 16:30 Peritoneal Tot Protein 1 gm/dL 01/10/17 16:30 Peritoneal Albumin 0 g/dL 01/10/17 16:30 Peritoneal LDH 37 IU/L 01/10/17 16:30 Peritoneal Glucose 103 mg/dL 01/10/17 16:30 Peritoneal Amylase 43 U/L 01/10/17 16:30 Opiates Screen Positive ng/ml (LFTXKD=224) 01/10/17 08:15 Methadone Screen Negative ng/ml (WMIQLH=206) 01/10/17 08:15 Barbiturate Screen Negative ng/ml (GKOKIR=777) 01/10/17 08:15 Phencyclidine Screen Negative ng/ml (CUTOFF=25) 01/10/17 08:15 Ur Amphetamines Screen Negative ng/ml (BWPOHY=818) 01/10/17 08:15 MDMA (Ecstasy) Screen Negative ng/ml (VDPBDB=479) 01/10/17 08:15 Benzodiazepines Screen Negative ng/ml (GWLTCJ=688) 01/10/17 08:15 Cocaine Screen Negative ng/ml (PAGLBV=404) 01/10/17 08:15 U Marijuana (THC) Screen Negative ng/ml (CUTOFF=50) 01/10/17 08:15 Home Medications Medication Instructions Recorded Folic Acid 1 mg PO DAILY 11/14/16 Pantoprazole Sodium [Protonix] 40 mg PO DAILY 11/14/16 Rifaximin [Xifaxan -] 550 mg PO BID 11/14/16 Ferrous Sulfate [Feosol] 325 mg PO DAILY #30 tab 11/24/16 Furosemide [Lasix -] 40 mg PO DAILY tablet 11/24/16 Lactulose (Oral Use) [Cephulac -] 30 gm PO QID #60 dose 11/24/16 Nadolol [Corgard -] 40 mg PO DAILY #30 tablet 11/24/16 Spironolactone [Aldactone -] 50 mg PO DAILY tablet 11/24/16 Gabapentin 100 mg PO TID #30 capsule 01/10/17 Microbiology 01/09/17 19:15 Urine - Urine Clean Catch Urine Culture - Preliminary Lactose Fermenting Neg Bacilli 01/10/17 16:30 Peritoneal Fluid EVA Preparation - Preliminary 01/10/17 16:30 Peritoneal Fluid Fungal Culture - Preliminary 01/10/17 16:30 Peritoneal Fluid AFB Smear Concentration - Preliminary 01/10/17 16:30 Peritoneal Fluid Mycobacterial Culture - Preliminary AP Pt is a 46 y/o M with PMHx of alcohol abuse, HepC, ascites, cirrhosis, portal HTN, esophogeal varices, umbilical hernia, and RLE cellulitis who presented with R testicular pain and swelling, worsening SOB that began 1 week ago, and reported fever of 102 F 2 nights ago, admitted for inguinal hernia and ascites. 1. Right scrotal swelling -likely due to abdominal ascites tracking into scrotum; no bowel content in inguinal hernia; no evidence of testicular torsion or acute epidymo-orchitis; likely not a true inguinal or incarcerated hernia -continue scrotal elevation; pt noncompliant with scrotal elevation -pain control with morphine -IR guided paracentesis; 3000 cc of serous fluid removed -surgery consulted 2. SOB 2/2 to ascites -resolved -IR guided paracentesis; 3000 cc of serous fluid removed; no signs of SBP as peritoneal PMN count <250, stable WBC, and no fever 3. Cirrhosis 2/2 to HepC and alcohol abuse -continue spirinolactone, rifaximin, lactulose, and lasix -per GI: paracentesis PRN if no access to diuretics, diuretics ineffective or maxed out 4. Diarrhea -resolved; has not had a BM since yesterday afternoon -restart lactulose; titrate for 2-3 BMs 5. Positive Urine cx ->100,000 CFU lactose fermenting neg bacilli -pt denied any urinary symptoms and UA neg on admission -no antibiotics needed at this time 6. Right Lower extremity cellulitis -per vascular surgery, healing well; continue santyl and JAVIER compressions 7. Thrombocytopenia -likely due to cirrhosis -baseline 80-90s -continue monitoring 8. Microcytic anemia -not actively bleeding -monitor H&H -continue iron supplements 9. FEN -No IVFs -lytes:wnl; replete as necessary -Low Na diet (2gm), fluid restriction (1qt/d) 10. PPx -DVT: SCDs -No GI PPx Dispo: Can be likely discharged tomorrow Sagrario Garcia, MS3
[2017-01-11] MEDS: LACTULOSE 20 GM/30 ML UDC (FOR ORAL USE ONLY) PO SCH ×3 (14:23→21:40)
--- NOTE | 2017-01-11 14:57 | PN ---
Physical Exam: SUBJECTIVE: Patient seen and examined at bedside. He states that he does not understand why his swelling has not yet decreased. He still complains of pain in his R testicle and on the R side of his abdomen near where he received paracentesis earlier. OBJECTIVE: Vital Signs Period Temp Pulse Resp BP Sys/Choi Pulse Ox Last 24 Hr 97.7 F-99.5 F 64-80 18-20 100-112/52-74 98-98 GENERAL: The patient is awake, alert, and fully oriented, in no acute distress. Patient is very agitated. HEAD: Normal with no signs of trauma. EYES: PERRL, extraocular movements intact, sclera anicteric, conjunctiva clear. No ptosis. ENT: Ears normal, nares patent, oropharynx clear without exudates, moist mucous membranes. NECK: Trachea midline, full range of motion, supple. LUNGS: Breath sounds equal, clear to auscultation bilaterally, no wheezes, no crackles, no accessory muscle use. HEART: Regular rate and rhythm, S1, S2 without murmur, rub or gallop. ABDOMEN: Soft, tender in the R side of the abdomen, distended, normoactive bowel sounds, no guarding, no rebound, no hepatosplenomegaly, no masses. EXTREMITIES: 2+ pulses, warm, well-perfused, no edema. NEUROLOGICAL: Cranial nerves II through XII grossly intact. Normal speech, gait not observed. PSYCH: agitated mood SKIN: Warm, dry, normal turgor, no rashes or lesions noted Laboratory Results - last 24 hr 01/10/17 01/11/17 01/11/17 16:30 08:00 08:00 WBC 4.3 RBC 3.56 L Hgb 8.6 L Hct 26.2 L MCV 73.5 L MCH 24.1 L MCHC 32.7 RDW 20.1 H Plt Count 106 L MPV 8.2 Neutrophils % 59.4 Lymphocytes % 22.2 D Monocytes % 10.8 H Eosinophils % 6.4 H Basophils % 1.2 PT with INR 18.50 H INR 1.64 H Sodium Potassium Chloride Carbon Dioxide Anion Gap BUN Creatinine Creat Clearance w eGFR Random Glucose Calcium Total Bilirubin Direct Bilirubin AST ALT Alkaline Phosphatase Total Protein Albumin Peritoneal WBC 91 Peritoneal RBC 604 Periton Neutrophils 3 Periton Lymphocytes 93 Peritoneal Monocytes 2 Periton Mesothelial 2 Peritoneal Tot Protein 1 Peritoneal Albumin 0 Peritoneal LDH 37 Peritoneal Glucose 103 Peritoneal Amylase 43 01/11/17 08:00 WBC RBC Hgb Hct MCV MCH MCHC RDW Plt Count MPV Neutrophils % Lymphocytes % Monocytes % Eosinophils % Basophils % PT with INR INR Sodium 140 Potassium 3.7 Chloride 106 Carbon Dioxide 26 Anion Gap 8 BUN 9 Creatinine 0.6 L D Creat Clearance w eGFR > 60 Random Glucose 76 Calcium 7.6 L Total Bilirubin 1.1 H Direct Bilirubin 0.5 H D AST 31 D ALT 28 Alkaline Phosphatase 193 H Total Protein 5.7 L Albumin 1.8 L Peritoneal WBC Peritoneal RBC Periton Neutrophils Periton Lymphocytes Peritoneal Monocytes Periton Mesothelial Peritoneal Tot Protein Peritoneal Albumin Peritoneal LDH Peritoneal Glucose Peritoneal Amylase Active Medications Generic Name Dose Route Start Last Admin Trade Name Freq PRN Reason Stop Dose Admin Collagenase 1 applic 01/10/17 15:30 01/10/17 18:39 Santyl - TP 1 applic DAILY KENDRICK Administration Ferrous Sulfate 325 mg 01/10/17 10:00 01/11/17 10:47 Feosol - PO 325 mg DAILY KENDRICK Administration Folic Acid 1 mg 01/10/17 10:00 01/11/17 10:47 Folic Acid - PO 1 mg DAILY KENDRICK Administration Furosemide 40 mg 01/10/17 11:30 01/11/17 14:23 Lasix - PO 40 mg BID@0600,1400 KENDRICK Administration Gabapentin 100 mg 01/10/17 03:45 01/11/17 14:22 Neurontin - PO 100 mg TID KENDRICK Administration Lactulose 30 gm 01/10/17 10:00 01/11/17 14:23 Cephulac (Oral Use) PO 30 gm QID KENDRICK Administration Morphine Sulfate 2 mg 01/10/17 10:25 01/11/17 08:02 Morphine Sulfate IVPUSH 2 mg Q6H PRN Administration PAIN Nadolol 40 mg 01/10/17 10:00 01/11/17 11:21 Corgard - PO 40 mg DAILY KENDRICK Administration Pantoprazole Sodium 40 mg 01/10/17 10:00 01/11/17 10:47 Protonix - PO 40 mg DAILY KENDRICK Administration Rifaximin 550 mg 01/10/17 10:00 01/11/17 10:48 Xifaxan - PO 550 mg BID KENDRICK Administration Spironolactone 75 mg 01/10/17 11:28 01/11/17 11:21 Aldactone - PO 75 mg BID KENDRICK Administration Thiamine HCl 100 mg 01/10/17 10:00 01/11/17 10:47 Vitamin B1 - PO 100 mg DAILY KENDRICK Administration ASSESSMENT/PLAN: Patient is a 46 year old male with PMHx of Hepatitis C, alcohol abuse, cirrhosis , ascites, esophageal varices, umbilical hernia, s/p small bowel resection, admitted to the hospital because of inguinal hernia and cirrhotic ascites. #Ascites from Cirrhotic liver disease: SOB has improved, still has pain in his R testicle -pt is s/p paracentesis with 3000mL removed -continue nadolol PO 40mg -continue spirolactone PO 50mg -continue lasix 40mg PO daily -resume lactulose 30mg q6 today due to increased bowel movements, restart tomorrow -continue rifaximin 550 PO BID -need to do therapeutic paracentesis and obtain cell count -low suspicion for SBP -GI consulted Dr Rivera appreciated -keep head end elevated -spoke to watch case polisher, patient is unable to receive rifaximin at home due to insurance status. Stated the need to choose another medication and see if pharmacy would approve it. #Scrotal Swelling: due to inguinal hernia with fluid in the inguinal canal entering the scrotum, patient states it is very painful -not an incarcerated hernia -continue rifaximin -will need to elevate the scrotum -paracentesis will likely decrease the fluid load and decrease the swelling -appreciate surgical consult Dr. Isak Reina #UTI: patient grew lactose fermenting gram (-) bacilli -patient was approached with diagnosis, but he stated he does not have an infection -agreed to treatment to ceftriaxone, got one dose #Vascular Ulcer on RLE: -patient brought home medication santyl with him to the hospital -resume santyl treatment and routine wound care #Elevated Ammonia Level -A/o x 3, -Ammonia 79.42 -continue Lactulose 30mg q6, goal to have 3-4 BM a day -continue rifaximin 550 PO BID # Hx of Polysubstance abuse -Utox positive for opiate use -continue Thiamine, Folic acid #Prolonged Qtc- 519 -Avoid QT prolonging agents -follow up with magnesium in the AM #Thrombocytopenia: this is near patient's baseline -likely from cirrhosis -will monitor #Microcytic anemia -iron deficiency -monitor H&H -transfuse if hemoglobin <7 -cont iron supplements #FEN -No standing fluids -replete electrolytes as necessary in the AM -Sodium restricted diet #DVT PPX -Heparin SQ TID #Dispo: Continue to monitor on Med-surge discharge planning for tomorrow Full code Visit type - Emergency Visit Emergency Visit: No - New Patient This patient is new to me today: No - Critical Care Critical Care patient: No
[2017-01-11] MEDS: COLLAGENASE CLOSTRIDIUM HIST. 30 GRAMS TUBE TP SCH (15:52)
[2017-01-11] MEDS ORDERED: PT OWN MED DRAWER 7, Y5N ONE (21:42)
[2017-01-12] MEDS: morphine SULFATE 4 MG/ML VIAL IVPUSH PRN (04:34)
[2017-01-12] MEDS: FUROSEMIDE 40 MG TABLET (FP) PO SCH (06:07)
[2017-01-12] MEDS: GABAPENTIN 100 MG CAPSULE (FP) PO SCH (06:07)
[2017-01-12 08:44] LABS: BASOPHIL 1.3 % (0-2.0); EOSINOPHIL 4.8 % (0-4.5); MCH 24.1 pg (25.7-33.7); MCHC 32.8 g/dl (32.0-35.9); MEAN CELL VOLUME 73.5 fl (80-96); MEAN PLT VOLUME 6.9 fl (7.5-11.1); NEUTROPHILS 58.5 % (42.8-82.8); PLATELET COUNT 107 K/MM3 (134-434); RDW 20.6 % (11.9-15.9); WHITE BLOOD COUNT 4.2 K/mm3 (4.0-10.0)
[2017-01-12 08:46] LABS: INR 1.53 (0.82-1.09); PROTHROMBIN TIME (PATIENT) 17.3 SEC (9.98-11.88)
[2017-01-12 08:58] LABS: ALBUMIN 1.8 g/dl (3.4-5.0); ANION GAP 6 (8-16); CALCIUM 7.5 mg/dL (8.5-10.1); CO2 27 mmol/L (21-32); GLUCOSE,RANDOM 79 mg/dL (74-106)
--- NOTE | 2017-01-12 09:00 | PN ---
Progress Note, Physician History of Present Illness: No events overnight. - Current Medication List Current Medications: Active Medications Collagenase (Santyl -) 1 applic TP DAILY [facility] Last Admin: 01/11/17 15:52 Dose: 1 applic Ferrous Sulfate (Feosol -) 325 mg PO DAILY [facility] Last Admin: 01/11/17 10:47 Dose: 325 mg Folic Acid (Folic Acid -) 1 mg PO DAILY [facility] Last Admin: 01/11/17 10:47 Dose: 1 mg Furosemide (Lasix -) 40 mg PO BID@0600,1400 [facility] Last Admin: 01/12/17 06:07 Dose: 40 mg Gabapentin (Neurontin -) 100 mg PO TID [facility] Last Admin: 01/12/17 06:07 Dose: 100 mg Lactulose (Cephulac (Oral Use)) 30 gm PO QID [facility] Last Admin: 01/11/17 21:40 Dose: 30 gm Nadolol (Corgard -) 40 mg PO DAILY [facility] Last Admin: 01/11/17 11:21 Dose: 40 mg Pantoprazole Sodium (Protonix -) 40 mg PO DAILY [facility] Last Admin: 01/11/17 10:47 Dose: 40 mg Rifaximin (Xifaxan -) 550 mg PO BID [facility] Last Admin: 01/11/17 21:43 Dose: 550 mg Spironolactone (Aldactone -) 75 mg PO BID [facility] Last Admin: 01/11/17 21:38 Dose: 75 mg Thiamine HCl (Vitamin B1 -) 100 mg PO DAILY [facility] Last Admin: 01/11/17 10:47 Dose: 100 mg - Objective Vital Signs: Vital Signs Temperature 99.0 F 01/12/17 06:00 Pulse Rate 74 01/12/17 06:00 Respiratory Rate 18 01/12/17 06:00 Blood Pressure 104/58 01/12/17 06:00 O2 Sat by Pulse Oximetry (%) 99 01/11/17 21:00 Constitutional: Yes: No Distress Eyes: Yes: Conjunctiva Clear HENT: Yes: Atraumatic Neck: Yes: Supple Cardiovascular: Yes: Regular Rate and Rhythm Respiratory: Yes: Regular Neurological: Yes: Alert, Oriented Labs: CBC, BMP 01/12/17 07:35 INR, PTT INR 1.53 (0.82-1.09) H 01/12/17 07:35 CBCD WBC 4.2 K/mm3 (4.0-10.0) 01/12/17 07:35 RBC 3.41 M/mm3 (4.00-5.60) L 01/12/17 07:35 Hgb 8.2 GM/dL (11.7-16.9) L 01/12/17 07:35 Hct 25.1 % (35.4-49) L 01/12/17 07:35 MCV 73.5 fl (80-96) L 01/12/17 07:35 MCHC 32.8 g/dl (32.0-35.9) 01/12/17 07:35 RDW 20.6 % (11.9-15.9) H 01/12/17 07:35 Plt Count 107 K/MM3 (134-434) L 01/12/17 07:35 MPV 6.9 fl (7.5-11.1) L D 01/12/17 07:35 CMP Sodium 140 mmol/L (136-145) 01/11/17 08:00 Potassium 3.7 mmol/L (3.5-5.1) 01/11/17 08:00 Chloride 106 mmol/L (98-107) 01/11/17 08:00 Carbon Dioxide 26 mmol/L (21-32) 01/11/17 08:00 Anion Gap 8 (8-16) 01/11/17 08:00 BUN 9 mg/dL (7-18) 01/11/17 08:00 Creatinine 0.6 mg/dL (0.7-1.3) L D 01/11/17 08:00 Creat Clearance w eGFR > 60 (>60) 01/11/17 08:00 Calcium 7.6 mg/dL (8.5-10.1) L 01/11/17 08:00 Total Bilirubin 1.1 mg/dL (0.2-1.0) H 01/11/17 08:00 AST 31 U/L (15-37) D 01/11/17 08:00 ALT 28 U/L (12-78) 01/11/17 08:00 Alkaline Phosphatase 193 U/L (45-117) H 01/11/17 08:00 Total Protein 5.7 g/dl (6.4-8.2) L 01/11/17 08:00 Albumin 1.8 g/dl (3.4-5.0) L 01/11/17 08:00 Problem List - Problems (1) Ascites due to alcoholic cirrhosis Code(s): K70.31 - ALCOHOLIC CIRRHOSIS OF LIVER WITH ASCITES Assessment/Plan aldactone, Lasix, Nadolol, lactulose and Rifaximin 2 gm Na and fluid (1 qt/day) restriction Case management to evaluate for health insurance/drug coverage options, if any Diet as tolerated
[2017-01-12 09:03] LABS: ALK PHOS 181 U/L (45-117); BILIRUBIN,DIRECT 0.5 mg/dL (0.0-0.2); CREATININE 0.6 mg/dL (0.7-1.3); SGOT/AST 29 U/L (15-37); SGPT/ALT 28 U/L (12-78); TOT PROT 5.7 g/dl (6.4-8.2)
[2017-01-12] MEDS ORDERED: PT OWN MED DRAWER 7, Y5N ONE (09:21)
[2017-01-12] MEDS: NADOLOL 40 MG TABLET (FP) PO SCH (09:25)
[2017-01-12] MEDS: THIAMINE HCL 100 MG TABLET (FP) PO SCH (09:25)
[2017-01-12] MEDS: FERROUS SO4 325 MG TABLET (FP) PO SCH (09:25)
[2017-01-12] MEDS: PANTOPRAZOLE 40 MG TABLET (FP) PO SCH (09:25)
[2017-01-12] MEDS: FOLIC ACID 1 MG TABLET (FP) PO SCH (09:25)
[2017-01-12] MEDS: SPIRONOLACTONE 25 MG TABLET (FP) PO SCH (09:25)
[2017-01-12] MEDS: LACTULOSE 20 GM/30 ML UDC (FOR ORAL USE ONLY) PO SCH (09:25)
[2017-01-12] MEDS: RIFAXIMIN 550 MG TABLET (UD) PO SCH (09:26)
[2017-01-12] MEDS ORDERED: oxyCODONE HCL 5 MG TABLET PO ONE (10:15)
[2017-01-12 10:20] VITALS: BP 98/60; PULSE 72
[2017-01-12 10:41] VITALS: TEMP 99.6
[2017-01-12] MEDS: COLLAGENASE CLOSTRIDIUM HIST. 30 GRAMS TUBE TP SCH (11:48)
--- NOTE | 2017-01-12 16:28 | PATH ---
Cytology Non-Gynecological Report Patient Name: JAMESON CARTER [facility]. Rec. #: [id number] /Age/Gender: 1970 (Age: 46) / M Account: [id number] Location: [address] [place] [address] Taken: 01/10/2017 Received: 01/11/2017 Reported: 01/12/2017 Physicians: Ángela Lopez M.D. Specimen(s) Received A: PERITONEAL FLUID B: PERITONEAL FLUID Clinical History Ascites, RLQ Final Diagnosis A. ABDOMINAL FLUID, RLQ, PARACENTESIS: SATISFACTORY FOR EVALUATION NO MALIGNANT CELLS IDENTIFIED. MESOTHELIAL CELLS AND LYMPHOCYTES PRESENT. B. ABDOMINAL FLUID, RLQ, PARACENTESIS: SATISFACTORY FOR EVALUATION NO MALIGNANT CELLS IDENTIFIED. MESOTHELIAL CELLS AND LYMPHOCYTES PRESENT. Electronically Signed Camryn Edwards M.D. Gross Description A. Approximately 50 cc of yellow fluid received fixed in 50% alcohol. Two cytofunnels and one cellblock prepared. B. [id number] cc of yellow fluid received fresh. Two cytofunnels and one cellblock prepared.
--- NOTE | 2017-01-12 20:06 | DS ---
Physical Exam: SUBJECTIVE: Patient seen and examined at bedside. Patient is mildly agitated and states that he is in pain. Requesting pain medications very frequently. Patient has been clinically improving over the course of 2 days and his pain is not reflected on his physical exam. OBJECTIVE: Vital Signs Period Temp Pulse Resp BP Sys/Choi Pulse Ox Last 24 Hr 99.0 F-99.6 F 72-76 18-20 90-105/50-62 99-100 PHYSICAL EXAM GENERAL: The patient is awake, alert, and fully oriented, in no acute distress. HEAD: Normal with no signs of trauma. EYES: PERRL, extraocular movements intact, sclera anicteric, conjunctiva clear. No ptosis. ENT: Ears normal, nares patent, oropharynx clear without exudates, moist mucous membranes. NECK: Trachea midline, full range of motion, supple. LUNGS: Breath sounds equal, clear to auscultation bilaterally, no wheezes, no crackles, no accessory muscle use. HEART: Regular rate and rhythm, S1, S2 without murmur, rub or gallop. ABDOMEN: Soft, nontender in the R side of the abdomen as compared to yesterday, distended, normoactive bowel sounds, no guarding, no rebound, no hepatosplenomegaly, no masses. Large midline scar from previous abdominal surgery noted. EXTREMITIES: 2+ pulses, warm, well-perfused, no edema. NEUROLOGICAL: Cranial nerves II through XII grossly intact. Normal speech, gait not observed. PSYCH: agitated mood SKIN: Warm, dry, normal turgor, no rashes or lesions noted : R testicle is mildly swollen and tender, improved from yesterday LABS Laboratory Results - last 24 hr 01/12/17 01/12/17 01/12/17 07:35 07:35 07:35 WBC 4.2 RBC 3.41 L Hgb 8.2 L Hct 25.1 L MCV 73.5 L MCH 24.1 L MCHC 32.8 RDW 20.6 H Plt Count 107 L MPV 6.9 L D Neutrophils % 58.5 Lymphocytes % 22.7 Monocytes % 12.7 H Eosinophils % 4.8 H Basophils % 1.3 PT with INR 17.30 H INR 1.53 H Sodium 140 Potassium 3.4 L Chloride 107 Carbon Dioxide 27 Anion Gap 6 L BUN 9 Creatinine 0.6 L Creat Clearance w eGFR > 60 Random Glucose 79 Calcium 7.5 L Total Bilirubin 1.0 Direct Bilirubin 0.5 H AST 29 ALT 28 Alkaline Phosphatase 181 H Total Protein 5.7 L Albumin 1.8 L HOSPITAL COURSE: Date of Admission:01/10/17 46 year old male with a past medical history of hepatitis C, alcohol abuse, cirrhosis, ascites, esophageal varices, umbilical hernia, s/p small bowel resection is admitted to the hospital for evaluation of swollen and tender R testicle. Patient has had ascites for quite some time and was recently admitted to [facility] for paracentesis 20 days prior to admission here at [facility]. Patient was found in the ED to have a very distended, nontender abdomen. Patient was treated with his home medications nadolol, spironolactone, lasix, lactulose, and rifaximin. Patient informed the team that he is unable to take rifaximin at home because his insurance company would not cover it. Patient was found to have an inguinal hernia on the right side on CT scan with ascitic fluid collecting in his R scrotum. A paracentesis was performed that removed 3L of fluid from his abdomen and the patient's testicles were elevated to assist in drainage of the fluid back into the abdomen. Over the course of the next couple of days, patient still had tenderness and swelling had improved. During the hospital stay, patient was found to have a UTI growing gram negative lactose fermenting bacilli, and the patient was treated with one dose of ceftriaxone IV. In addition, the patient came to the hospital with a RLE ulcer on the lateral side of his distal leg. Patient has been non-compliant with wound care appointments. Patient has been seen by vascular surgery and patient was treated with santyl and tesfaye bandages. Patient was discharged on 01/12 with recommendations to see a primary care physician for followup and a referral for gastroenterology. Date of Discharge: 01/12/17 Minutes to complete discharge: 30 Discharge Summary Reason For Visit: ASCITES DUE TO ETOH CIRRHOSIS HYPERAMMON Condition: Stable - Instructions Diet, Activity, Other Instructions: You were treated in the hospital for ascites due to liver cirrhosis and resultant testicular swelling from the fluid in your abdomen. You should continue to elevate your scrotum, especially when sitting or laying down to prevent the fluid from accumulating there. This is due to a chronic scarring of your liver that keeps fluid accumulating in your abdomen. What YOU can do to prevent further damage to your liver: -Avoid alcohol -Talk to your doctor before you start taking any new medicines, including pain killers such as ibuprofen (sample brand names: Advil, Motrin), naproxen ( sample brand name: Aleve), or acetaminophen (tylenol) -Get vaccinated for hepatitis A and B if you have not had the infections before and have not been previously vaccinated. What you can do to help treat the fluid build-up in your abdomen -Eat a low-salt/low-sodium diet. Reducing sodium in your diet will reduce the accumulation of fluid in your abdomen and lower your blood pressure. Limit your fluid intake to less than 1 liter daily. -Foods to avoid: biscuits, salt crackers and snack foods, macaroni and cheese; Salted, smoked, canned, spiced, and cured meat; canned vegetables and vegetable juices; prepared salad dressings, rodriguez, salt pork, Softened water; carbonated beverages with sodium or salt added, and condiments: Table salt, lite salt, bouillon cubes, meat extract, taco seasoning, Worcestershire sauce, tartar sauce, ketchup, chili sauce, cooking luigi and wine, onion salt, mustard , garlic salt, soy sauce. Medical Recommendations: -It is really important that you take your home medications as prescribed: -Spironolactone has been increased to 75mg by mouth daily -Pantoprazole 40mg by mouth daily -Nadolol 40mg by mouth daily -Lactulose 30gm by mouth four times a day (can try reducing to 3 times a day if you have more than three bowel movements a day) -Furosemide 40mg has been increased to twice a daily -Folic acid 1 mg by mouth daily -Ferrous sulfate 325mg by mouth daily -Gabapentin 100mg by mouth 3 times a day Referrals: (Make an appointment with the following doctors) 1. Dr. Rivera (Gastroenterology) within 1 month of discharge 2. Your primary care physician within 1 week of discharge. If you don't have a primary care physician, you can follow with us at [address] [place] [address] Referrals: Joseluis Rivera MD [Staff Physician] - Disposition: HOME - Home Medications Comprehensive Discharge Medication List: Ambulatory Orders Rifaximin [Xifaxan -] 550 mg PO BID 11/14/16 Gabapentin 100 mg PO TID #30 capsule 01/10/17 Ferrous Sulfate [Feosol] 325 mg PO DAILY #30 tab 01/12/17 Folic Acid 1 mg PO DAILY #14 tablet 01/12/17 Furosemide [Lasix -] 40 mg PO BID@0600,1400 #28 tablet 01/12/17 Lactulose (Oral Use) [Cephulac -] 30 gm PO QID #60 dose 01/12/17 Nadolol [Corgard -] 40 mg PO DAILY #30 tablet 01/12/17 Pantoprazole Sodium [Protonix] 40 mg PO DAILY #14 tablet.dr 01/12/17 Spironolactone [Aldactone -] 75 mg PO BID #14 tablet 01/12/17 This patient is new to me today: No Emergency Visit: No Critical Care patient: No - Discharge Referral Referred to [facility] Med [facility] No
== END 2017-01-12 14:14 | disposition home or self-care (01) | DRG 264 ==
LOC: JERFT 13:29 → J5S 01-10 00:35 → JERBED 01-10 01:00 → UNDOADMIN 01-10 01:00 → JERBED 01-10 02:11 → J5S 01-10 02:11
PROVIDERS: ADMIT Internal Medicine; ATTEND Internal Medicine
PROC: 0W9G3ZX Drainage of Peritoneal Cavity, Percutaneous Approach, Diagnostic (ICD-10-PCS; principal; 2017-01-10)
DX: K70.31 Alcoholic cirrhosis of liver with ascites (principal); K70.40 Alcoholic hepatic failure without coma; Z76.82 Awaiting organ transplant status; J90 Pleural effusion, not elsewhere classified; E72.20 Disorder of urea cycle metabolism, unspecified; K52.1 Toxic gastroenteritis and colitis; K76.6 Portal hypertension; D69.59 Other secondary thrombocytopenia; F10.29 Alcohol dependence with unspecified alcohol-induced disorder; L03.115 Cellulitis of right lower limb; E87.1 Hypo-osmolality and hyponatremia; N39.0 Urinary tract infection, site not specified; L97.819 Non-pressure chronic ulcer of other part of right lower leg with unspecified severity; I85.10 Secondary esophageal varices without bleeding; Z91.19 Patient's noncompliance with other medical treatment and regimen; I10 Essential (primary) hypertension; B19.20 Unspecified viral hepatitis C without hepatic coma; F11.10 Opioid abuse, uncomplicated; Z87.891 Personal history of nicotine dependence; Z90.49 Acquired absence of other specified parts of digestive tract; J98.11 Atelectasis; I45.81 Long QT syndrome; D50.9 Iron deficiency anemia, unspecified; T47.3X5A Adverse effect of saline and osmotic laxatives, initial encounter; B96.89 Other specified bacterial agents as the cause of diseases classified elsewhere; D64.9 Anemia, unspecified; N50.89 Other specified disorders of the male genital organs
CPT/HCPCS: 36415; 71010-TC; 74177-TC; 76700-TC; 76870-TC; 76942-TC; 80053; 80307; 81003; 81015; 82042; 82140; 82150; 82248; 82550; 82945; 83615; 83690; 83735; 83880; 84100; 84157; 84484; 85025; 85027; 85610; 85730; 87070; 87075; 87086; 87102; 87116; 87186; 87205; 87206; 87210; 88108; 88305-TC; 89051; 93005; 93010; 99282-25; Q9967

== ENCOUNTER 2017-02-08 11:12 | Inpatient (IN) | payer OTHER ==
[2017-02-08 11:53] VITALS: BMI 35.4
[2017-02-08] MEDS ORDERED: morphine CARPU-JECT 4 MG/1 ML DISP.SYRIN IVPUSH ONE (13:56)
--- NOTE | 2017-02-08 14:05 | PDOC ---
Attending Attestation - Resident Resident Name: Celso Dc - ED Attending Attestation I have performed the following: I have examined & evaluated the patient, The case was reviewed & discussed with the resident, I agree w/resident's findings & plan, Exceptions are as noted - HPI HPI: 02/08/17 14:02 46y M hx of etoh abuse, hcv cirrosis, ascites, esophageal varicies, sbo s/p sb resection present with complaint of abd pain increased abdominal pain and distension. pt s/p apracentesis approx 1 month ago. pt endorses orthopnea, no assoicated cp, sob, f/c, n/v, urinary sypmtoms, or diarrhea. on exam pt has a large distended abdomen that is diffusely tender to palpation he is also warm to the touch vitals noted for low grade fever ddx includes sbp, uti, intraobdlimainl infectious process such as appendicitis, cholycisitis will ck labs sepsis orderset peritoneal tap ua - Physicial Exam PE: 02/10/17 20:07 see above - Medical Decision Making 02/08/17 17:18 labs reviewed ua noted for nitrite + urine >+UTI peritoneal tap results pending will start ctx if sbp pt will be admitted for further mgmt
[2017-02-08] MEDS ORDERED: morphine CARPU-JECT 10 MG/1 ML DISP.SYRIN ONE (14:50)
[2017-02-08] MEDS ORDERED: LIDOCAINE HCL 1%, 10 MG/ML (20ML VIAL) ONE (14:54)
[2017-02-08 14:55] LABS: BASO % 0.2 % (0-2.0); EOS % 0.1 % (0-4.5); HEMATOCRIT 30.8 % (35.4-49); HEMOGLOBIN 9.7 GM/dL (11.7-16.9); LYMPH % 2.8 % (8-40); MCH 25.4 pg (25.7-33.7); MCHC 31.6 g/dl (32.0-35.9); MEAN CELL VOLUME 80.2 fl (80-96); MEAN PLT VOLUME 7.6 fl (7.5-11.1); MONO % 7.1 % (3.8-10.2); NEUT % 89.8 % (42.8-82.8); PLATELET COUNT 113 K/MM3 (134-434); RBC 3.84 M/mm3 (4.00-5.60); RDW 22.8 % (11.9-15.9); WHITE BLOOD COUNT 8.7 K/mm3 (4.0-10.0)
[2017-02-08] MEDS ORDERED: ACETAMINOPHEN 325 MG TABLET (FP) PO ONE (15:06)
[2017-02-08 15:20] LABS: ANION GAP 9 (8-16); BLOOD UREA NITROGEN 7 mg/dL (7-18); CHLORIDE 105 mmol/L (98-107); CO2 24 mmol/L (21-32); CREATININE 0.7 mg/dL (0.7-1.3); GLUCOSE,RANDOM 113 mg/dL (74-106); LIPASE 173 U/L (73-393); SGPT/ALT 44 U/L (12-78); SODIUM 138 mmol/L (136-145)
[2017-02-08 15:22] LABS: ALK PHOS 201 U/L (45-117); BILIRUBIN,TOTAL 1.2 mg/dL (0.2-1.0); TOT PROT 7.1 g/dl (6.4-8.2)
[2017-02-08] MEDS ORDERED: PIPERACILLIN/TAZOB 4.5 GM/100 ML PRE-DOCKED IVPB ONE (15:42)
[2017-02-08 15:43] LABS: SGOT/AST 117 U/L (15-37)
[2017-02-08] MEDS ORDERED: VANCOMYCIN 1,000 MG in DEXTROSE 5%-WATER - 250 ML IVPB ONE (15:43)
[2017-02-08 15:53] LABS: ADD RBC MORPHOLOGY YES
[2017-02-08] MEDS ORDERED: ACETAMINOPHEN 325 MG TABLET (FP) ONE (15:53)
[2017-02-08] MEDS ORDERED: VANCOMYCIN 1 GRAM (PRE-DOCKED) 1,000 MG/250 ML BAG IVPB ONE (15:53)
[2017-02-08] MEDS ORDERED: PIPERACILLIN/TAZOB 3.375 GM 3.375 GM/50 ML BAG IVPB ONE (15:53)
[2017-02-08 15:54] LABS: INR 1.42 (0.82-1.09)
--- NOTE | 2017-02-08 16:05 | PDOC ---
History of Present Illness - General Chief Complaint: Pain, Acute Stated Complaint: PAIN (CIRRHOSIS) Time Seen by Provider: 02/08/17 13:41 History Source: Patient Exam Limitations: No Limitations - History of Present Illness Initial Comments: 02/08/17 15:47 Patient is 46M with history of HCV, etoh abuse, cirrhosis, ascites, esophageal varices, umbilical hernia, s/p small bowel resection, and chronic right leg wound here today complaining of abdominal pain for the past 3 days. He also complains of associated fever, chills and increased abdominal swelling. He has a chronic wound on his right leg, which he says has been improving. He describes the pain as a generalized pain across his belly. Last bowel movement was last night. He says he has associated shortness of breath. Past History - Past Medical History Allergies/Adverse Reactions: Allergies Allergy/AdvReac Type Severity Reaction Status Date / Time No Known Allergies Allergy Verified 02/08/17 11:45 Home Medications: Ambulatory Orders Ferrous Sulfate [Feosol] 325 mg PO DAILY #30 tab 01/12/17 Folic Acid 1 mg PO DAILY #14 tablet 01/12/17 Furosemide [Lasix -] 40 mg PO BID@0600,1400 #28 tablet 01/12/17 Lactulose (Oral Use) [Cephulac -] 30 gm PO QID #60 dose 01/12/17 Nadolol [Corgard -] 40 mg PO DAILY #30 tablet 01/12/17 Pantoprazole Sodium [Protonix] 40 mg PO DAILY #14 tablet.dr 01/12/17 Spironolactone [Aldactone -] 75 mg PO BID #14 tablet 01/12/17 Lactobacillus Combination No.4 [Probiotic] 1 each PO DAILY 02/08/17 Pantoprazole Sodium [Protonix] 40 mg PO DAILY 02/08/17 Tamsulosin HCl [Flomax] 0.4 mg PO HS 02/08/17 Anemia: No Asthma: No Cancer: No Cardiac Disorders: No CVA: No COPD: No CHF: No DVT: No Dementia: No Diabetes: No Dialysis: No GI Disorders: Yes (GI BLEED, SBO) Disorders: No HTN: Yes Hypercholesterolemia: No Liver Disease: Yes (HEPATITS C) Psychiatric Problems: Yes (anxiety) Seizures: No Thyroid Disease: No - Surgical History Abdominal Surgery: Yes (GI BLEED/HERNIA, Partial SBO resection) Appendectomy: No Cardiac Surgery: No Cholecystectomy: No Lung Surgery: No Neurologic Surgery: Yes Orthopedic Surgery: No - Immunization History Immunization Up to Date: Yes - Suicide/Smoking/Psychosocial Hx Smoking Status: Yes Smoking History: Never smoked Have you smoked in the past 12 months: No Number of Cigarettes Smoked Daily: 3 If you are a former smoker, when did you quit?: 10yrs Information on smoking cessation initiated: No 'Breaking Loose' booklet given: 07/26/16 Hx Alcohol Use: No Drug/Substance Use Hx: No Substance Use Type: None Hx Substance Use Treatment: (unobtainable) Review of Systems - Review of Systems Comments:: 02/08/17 16:05 GENERAL/CONSTITUTIONAL: Positive for fever, chills, diffuse weakness HEAD, EYES, EARS, NOSE AND THROAT: No change in vision. No sore throat. CARDIOVASCULAR: No chest pain. Positive for shortness of breath. RESPIRATORY: No cough, wheezing, or hemoptysis. GASTROINTESTINAL: No nausea, vomiting, diarrhea or constipation. GENITOURINARY: No dysuria, frequency, or change in urination. MUSCULOSKELETAL: Positive for back pain. NEUROLOGIC: No headache, vertigo, loss of consciousness, or change in strength/ sensation. HEMATOLOGIC/LYMPHATIC: No anemia, easy bleeding, or history of blood clots. ALLERGIC/IMMUNOLOGIC: No hives or skin allergy. *Physical Exam - Vital Signs Last Vital Signs Temp Pulse Resp BP Pulse Ox 100.8 F H 93 H 20 125/52 98 02/08/17 15:05 02/08/17 15:05 02/08/17 15:05 02/08/17 15:05 02/08/17 15:05 - Physical Exam Comments: 02/08/17 16:13 GENERAL: Awake, alert, and fully oriented HEAD: No signs of trauma, normocephalic, atraumatic EYES: PERRLA, EOMI, sclera anicteric, conjunctiva clear ENT: Auricles normal inspection, hearing grossly normal, nares patent, oropharynx clear without exudates. Moist mucosa NECK: Normal ROM, supple, no lymphadenopathy, JVD, or masses LUNGS: No distress, speaks full sentences, clear to auscultation bilaterally HEART: Regular rate and rhythm, normal S1 and S2, no murmurs, rubs or gallops, peripheral pulses normal and equal bilaterally. ABDOMEN: Distended, warm to touch, diffusely tender, positive fluid wave. EXTREMITIES: 7x5cm ulcer with extension to deeper soft tissue, malodorous, well bandaged. NEUROLOGICAL: Cranial nerves II through XII grossly intact. Normal speech, no focal sensorimotor deficits ED Treatment Course - LABORATORY CBC & Chemistry Diagram: 02/08/17 14:49 02/08/17 14:49 - ADDITIONAL ORDERS Additional order review: Laboratory Results 02/08/17 14:49 Sodium 138 Potassium 5.0 D Chloride 105 Carbon Dioxide 24 Anion Gap 9 BUN 7 D Creatinine 0.7 Creat Clearance w eGFR > 60 Random Glucose 113 H D Calcium 8.0 L Total Bilirubin 1.2 H AST 117 H D ALT 44 D Alkaline Phosphatase 201 H Total Protein 7.1 D Albumin 2.0 L Lipase 173 - RADIOLOGY Radiology Studies Ordered: Category Date Time Status CXRPORT [CHEST X-RAY PORTABLE*] [RAD] Stat Radiology 02/08/17 14:05 Completed - Medications Given in the ED: ED Medications Discontinued Medications Generic Name Dose Route Start Last Admin Trade Name Freq PRN Reason Stop Dose Admin Morphine Sulfate 4 mg 02/08/17 13:56 02/08/17 15:00 Morphine Injection - IVPUSH 02/08/17 13:57 4 mg ONCE ONE Administration Medical Decision Making - Medical Decision Making 02/08/17 16:19 46M with history of HCV, etoh abuse, cirrhosis, ascites, esophageal varices, umbilical hernia, s/p small bowel resection, and chronic right leg wound here today with abdominal pain and chronic leg wound. Vital signs notable for fever. Differential for sources includes, but is not limited to: SBP, soft tissue infection, UTI. Will evaluate with cbc, cmp, lactate, blood cultures, coags, ua , urine cultures, cxr, ekg, and paracentesis fluid labs. After collection of ascites fluid will treat empirically with vanc and zosyn to cover soft tissue and sbp sources. 02/08/17 16:22 Paracentesis performed, verbal consent obtained. Patient's INR elevated to 1.4, but highly suspect SBP and need specimen before empiric treatment. Fluid pocket identified with ultrasound, 60cc of yellow tinged fluid drawn. Labs and cultures sent. Antibiotics started. 02/08/17 16:24 Laboratory Tests 02/08/17 02/08/17 02/08/17 14:49 14:49 14:49 WBC 8.7 D Hgb 9.7 L D Hct 30.8 L D Plt Count 113 L Neutrophils % 89.8 H D PT with INR INR Lactic Acid 2.8 H* Total Bilirubin 1.2 H AST 117 H D ALT 44 D Alkaline Phosphatase 201 H 02/08/17 14:49 WBC Hgb Hct Plt Count Neutrophils % PT with INR 16.00 H INR 1.42 H Lactic Acid Total Bilirubin AST ALT Alkaline Phosphatase CBC shows no white count, 90% neutrophils. Lactic acid 2.8. Bili elevated, ast elevated. INR 1.42. Pending SBP labs. Will give 500ml fluids, but will limit future fluids due to abdominal distention. 02/08/17 19:[address] Hdz. Pending PMN count. CT if negative. *DC/Admit/Observation/Transfer Diagnosis at time of Disposition: Abdominal pain - Discharge Dispostion Condition at time of disposition: Stable - Referrals Referrals: Garcia Arteaga [Primary Care Provider] - - Patient Instructions - Post Discharge Activity
[2017-02-08 16:18] LABS: TOTAL PROTEIN,PERITONEAL FLUID 1 gm/dL
[2017-02-08 16:27] LABS: URINE APPEARANCE SLCLOUDY; URINE BILIRUBIN NEGATIVE (NEGATIVE); URINE BLOOD NEGATIVE (NEGATIVE); URINE COLOR AMBER; URINE GLUCOSE (UA) NEGATIVE (NEGATIVE); URINE KETONE TRACE (NEGATIVE); URINE LEUK ESTERASE NEGATIVE (NEGATIVE); URINE NITRITE POSITIVE (NEGATIVE); URINE UROBILINOGEN 4.0 E.U/dl mg/dL (0.2-1.0)
[2017-02-08 16:40] LABS: URINE PROTEIN 1+ (NEGATIVE)
[2017-02-08] MEDS ORDERED: ALBUTEROL SO4 2.5/IPRATROPIUM 0.5 INH SOL 3 ML VIAL.NEB. NEB ONE ×2 (16:47→16:52)
[2017-02-08] MEDS ORDERED: ACETAMINOPHEN INJECTION 100 ML IVPB ONE (16:52)
[2017-02-08] MEDS ORDERED: ACETAMINOPHEN 1000 MG/100 ML VIAL (NON FORMULARY) IVPB ONE (16:53)
[2017-02-08] MEDS ORDERED: SODIUM CHLORIDE 500 ML IV STA (16:53)
[2017-02-08] MEDS ORDERED: IBUPROFEN 800 MG/8 ML IJ IVPB ONE ×2 (16:58→17:05)
[2017-02-08 18:55] LABS: PERITONEAL RBC 918 /mm3
--- NOTE | 2017-02-08 19:29 | PDOC ---
*Physical Exam - Vital Signs Last Vital Signs Temp Pulse Resp BP Pulse Ox 101.8 F H 104 H 20 132/74 95 02/08/17 19:11 02/08/17 19:11 02/08/17 19:11 02/08/17 19:11 02/08/17 19:11 ED Treatment Course - LABORATORY CBC & Chemistry Diagram: 02/08/17 14:49 02/08/17 14:49 - ADDITIONAL ORDERS Additional order review: Laboratory Results 02/08/17 02/08/17 02/08/17 16:10 15:33 15:33 PT with INR INR Sodium Potassium Chloride Carbon Dioxide Anion Gap BUN Creatinine Creat Clearance w eGFR Random Glucose Lactic Acid Calcium Total Bilirubin AST ALT Alkaline Phosphatase Total Protein Albumin Lipase Urine Color More[place] Urine Appearance Slcloudy Urine pH 6.0 Ur Specific Welcome 1.031 Urine Protein 1+ H Urine Glucose (UA) Negative Urine Ketones Trace H Urine Blood Negative Urine Nitrite Positive Urine Bilirubin Negative Urine Urobilinogen 4.0 e.u/dl Peritoneal WBC 345 Peritoneal RBC 918 Peritoneal Tot Protein 1 Peritoneal Albumin 0 Peritoneal LDH 75 Peritoneal Glucose 152 Peritoneal Amylase 26 02/08/17 02/08/17 02/08/17 15:23 14:49 14:49 PT with INR 16.00 H INR 1.42 H Sodium Potassium Chloride Carbon Dioxide Anion Gap BUN Creatinine Creat Clearance w eGFR Random Glucose Lactic Acid 2.8 H* Calcium Total Bilirubin 0.2 D AST ALT Alkaline Phosphatase Total Protein Albumin Lipase Urine Color Urine Appearance Urine pH Ur Specific Welcome Urine Protein Urine Glucose (UA) Urine Ketones Urine Blood Urine Nitrite Urine Bilirubin Urine Urobilinogen Peritoneal WBC Peritoneal RBC Peritoneal Tot Protein Peritoneal Albumin Peritoneal LDH Peritoneal Glucose Peritoneal Amylase 02/08/17 14:49 PT with INR INR Sodium 138 Potassium 5.0 D Chloride 105 Carbon Dioxide 24 Anion Gap 9 BUN 7 D Creatinine 0.7 Creat Clearance w eGFR > 60 Random Glucose 113 H D Lactic Acid Calcium 8.0 L Total Bilirubin 1.2 H AST 117 H D ALT 44 D Alkaline Phosphatase 201 H Total Protein 7.1 D Albumin 2.0 L Lipase 173 Urine Color Urine Appearance Urine pH Ur Specific Welcome Urine Protein Urine Glucose (UA) Urine Ketones Urine Blood Urine Nitrite Urine Bilirubin Urine Urobilinogen Peritoneal WBC Peritoneal RBC Peritoneal Tot Protein Peritoneal Albumin Peritoneal LDH Peritoneal Glucose Peritoneal Amylase 02/08/17 14:49 RBC 3.84 L MCV 80.2 D MCHC 31.6 L RDW 22.8 H D MPV 7.6 D Neutrophils % 89.8 H D Lymphocytes % 2.8 L D Monocytes % 7.1 Eosinophils % 0.1 D Basophils % 0.2 - Medications Given in the ED: ED Medications Discontinued Medications Generic Name Dose Route Start Last Admin Trade Name Rafael PRN Reason Stop Dose Admin Acetaminophen 650 mg 02/08/17 15:06 02/08/17 15:53 Tylenol - PO 02/08/17 15:07 650 mg ONCE ONE Administration Albuterol/Ipratropium 1 amp 02/08/17 16:47 02/08/17 16:57 Duoneb - NEB 02/08/17 16:48 1 amp ONCE ONE Administration Vancomycin HCl 1,000 mg/ 250 mls @ 250 mls/hr 02/08/17 15:43 02/08/17 16:59 Dextrose IVPB 02/08/17 16:42 250 mls/hr ONCE ONE Administration Protocol Sodium Chloride 500 mls @ 500 mls/hr 02/08/17 16:53 02/08/17 16:57 Normal Saline - IV 02/08/17 17:52 500 mls/hr ASDIR STA Administration Ibuprofen 800 mg 02/08/17 16:58 02/08/17 17:51 Caldolor Injection - IVPB 02/08/17 16:59 800 mg ONCE ONE Administration Morphine Sulfate 4 mg 02/08/17 13:56 02/08/17 15:00 Morphine Injection - IVPUSH 02/08/17 13:57 4 mg ONCE ONE Administration Piperacillin Sod/Tazobactam Sod 4.5 gm 02/08/17 15:42 02/08/17 16:17 Zosyn 4.5gm Ivpb (Pre-Docked) IVPB 02/08/17 15:43 4.5 gm NOW ONE Administration Medical Decision Making - Medical Decision Making 02/08/17 19:27 The patient is a 46M with a PMH of HCV, etoh abuse, cirrhosis, ascites, esophageal varices, umbilical hernia, s/p small bowel resection, and chronic right leg wound here today complaining of abdominal pain. Pending paracentesis of abdominal fluid labs. CT if neutrophil negative. 02/08/17 20:35 Hospitalist paged for admission. 02/08/17 20:39 Dr. Tapia accepts admission to a med-surg bed. *DC/Admit/Observation/Transfer Diagnosis at time of Disposition: Abdominal pain Qualifiers: Abdominal location: generalized Qualified Code(s): R10.84 - Generalized abdominal pain - Discharge Dispostion Condition at time of disposition: Stable Admit: Yes - Referrals Referrals: Garcia Arteaga [Primary Care Provider] - - Patient Instructions - Post Discharge Activity
[2017-02-08 19:48] LABS: EPI CELLS RARE /HPF (FEW); URINE BACTERIA MODERATE /hpf (NONE SEEN); URINE MUCUS MANY
[2017-02-08] MEDS ORDERED: CEFOTAXIME SODIUM 2,000 MG in DEXTROSE 5%-WATER - 50 ML IVPB ONE (20:37)
--- NOTE | 2017-02-08 21:09 | PN ---
Teaching Attending Note Name of Resident: Chele Crabtree ATTENDING PHYSICIAN STATEMENT I saw and evaluated the patient. I reviewed the resident's note and discussed the case with the resident. I agree with the resident's findings and plan as documented. SUBJECTIVE: 46 M with pmhx. of ETOH abuse, cirrhosis, Hep. C, IVDA, Chronic RLE wound, SBO s /p partial small bowel resection, facial trauma s/p ORIF with metal plates, who presents with increased abdominal distension and abdominal pain. Also, notes associated back pain. No chest pain, pressure or shortness of breath. Has not felt febrile, no chills. ED COURSE: Diagnostic Paracentesis done and fluid cx's set OBJECTIVE: Physical: VS: Vital Signs Period Temp Pulse Resp BP Sys/Choi Pulse Ox Last 24 Hr 99.3 F-103.7 F 79-106 17-25 108-149/52-95 89-98 GEN: NAD, Resting in bed, AA0X3 HEENT: NCAT, PERRL, throat without erythema or exudates CARD: RRR S1, S2 RESP:CTAB ABD: Distended, BS present, Mild TTP diffuse EXT: RLE bandaged (pt. refused to let me examine), LLE - C/C/E CBCD WBC 8.7 K/mm3 (4.0-10.0) D 02/08/17 14:49 RBC 3.84 M/mm3 (4.00-5.60) L 02/08/17 14:49 Hgb 9.7 GM/dL (11.7-16.9) L D 02/08/17 14:49 Hct 30.8 % (35.4-49) L D 02/08/17 14:49 MCV 80.2 fl (80-96) D 02/08/17 14:49 MCHC 31.6 g/dl (32.0-35.9) L 02/08/17 14:49 RDW 22.8 % (11.9-15.9) H D 02/08/17 14:49 Plt Count 113 K/MM3 (134-434) L 02/08/17 14:49 MPV 7.6 fl (7.5-11.1) D 02/08/17 14:49 CMP Sodium 138 mmol/L (136-145) 02/08/17 14:49 Potassium 5.0 mmol/L (3.5-5.1) D 02/08/17 14:49 Chloride 105 mmol/L (98-107) 02/08/17 14:49 Carbon Dioxide 24 mmol/L (21-32) 02/08/17 14:49 Anion Gap 9 (8-16) 02/08/17 14:49 BUN 7 mg/dL (7-18) D 02/08/17 14:49 Creatinine 0.7 mg/dL (0.7-1.3) 02/08/17 14:49 Creat Clearance w eGFR > 60 (>60) 02/08/17 14:49 Random Glucose 113 mg/dL (74-106) H D 02/08/17 14:49 Calcium 8.0 mg/dL (8.5-10.1) L 02/08/17 14:49 Total Bilirubin 0.2 mg/dL (0.2-1.0) D 02/08/17 15:23 AST 117 U/L (15-37) H D 02/08/17 14:49 ALT 44 U/L (12-78) D 02/08/17 14:49 Alkaline Phosphatase 201 U/L (45-117) H 02/08/17 14:49 Total Protein 7.1 g/dl (6.4-8.2) D 02/08/17 14:49 Albumin 2.0 g/dl (3.4-5.0) L 02/08/17 14:49 Ambulatory Orders Ferrous Sulfate [Feosol] 325 mg PO DAILY #30 tab 01/12/17 Folic Acid 1 mg PO DAILY #14 tablet 01/12/17 Furosemide [Lasix -] 40 mg PO BID@0600,1400 #28 tablet 01/12/17 Lactulose (Oral Use) [Cephulac -] 30 gm PO QID #60 dose 01/12/17 Nadolol [Corgard -] 40 mg PO DAILY #30 tablet 01/12/17 Pantoprazole Sodium [Protonix] 40 mg PO DAILY #14 tablet. 01/12/17 Spironolactone [Aldactone -] 75 mg PO BID #14 tablet 01/12/17 Lactobacillus Combination No.4 [Probiotic] 1 each PO DAILY 02/08/17 Pantoprazole Sodium [Protonix] 40 mg PO DAILY 02/08/17 Tamsulosin HCl [Flomax] 0.4 mg PO HS 02/08/17 ASSESSMENT AND PLAN: 46 M with pmhx. of ETOH abuse, cirrhosis, Hep. C, IVDA, Chronic RLE wound, SBO s /p partial small bowel resection, facial trauma s/p ORIF with metal plates who presents with abdominal pain, he is being admitted for Sepsis most likley due to SBP. 1.) Sepsis - Most Likely due to Spontaneous Bacterial Peritonitis - Await Final Fluid studies - Start Cefotaxime, If no Cefotaxime then can due Ceftriaxone 2gm - ID consult - Carbajal Cx - Repeat LA - GI consult - Needs theraputic Paracentesis, when pt. willing and able - D/C BB - FU cell count 2.) Ascites from Cirhhosis of livrt - C/W Rifaxamin, aldactone, and lasix, lactulose - Na/Fluid Restrict 3.) RLE Wound - Unable to examine, due to pt. - C/W wound care 4.) Hx. OF Polysubstance Abuse - C/W Thiamine and Folic A 5.) Thrombocytopenia - At baseline - Monitor - Most likely due to liver dz 6.) Dvt Ppx - Heparin 5000 q8 - Monitor Plts Place in Med-sx
[2017-02-08] MEDS ORDERED: CEFTRIAXONE 1 GM in DEXTROSE 5%-WATER - 50 ML IVPB ONE (21:18)
[2017-02-08] MEDS ORDERED: CEFTRIAXONE 1 GM/50 ML BAG ONE ×2 (21:25→21:41)
[2017-02-08] MEDS ORDERED: CEFTRIAXONE 2 GM in DEXTROSE 5%-WATER - 100 ML IVPB ONE (21:32)
--- NOTE | 2017-02-08 21:37 | HP ---
CHIEF COMPLAINT: Abdominal pain, distension PCP: Dr. Arteaga HISTORY OF PRESENT ILLNESS: 46 yo w/ pmh of Hep C, cirrhosis, ascites, esophageal varices w/ bleeding ( banding on 11/29), chronic R leg ulcer and small bowel resection, who presents with 3-4 days of worsening abdominal distension and pain with subjective fevers and chills. Abdominal distension and discomfort occurred progressively, w/ pt now endorsing diffuse mild tenderness as well as pain in lower back and upper thighs, worsened by deep inspiration and changes in position. Pt endorses have a "few drinks" at a [employer] around the same time as onset of symptoms. Pt with hx of recurrent ascites requiring multiple therapeutic paracenteses, however no hx of SBP. Pt denies any lightheadness/vision changes, fever, cough, CP, N/V, decreased PO intake, constipation, dysuria, rashes or new neuro symptoms. He does endorse occasional nonbloody diarrhea and BL LE edema. Pt does not follow with a GI doctor, however was referred to Dr. Rivera during last admission one month ago. Of note, pt with Klebsiella UTI on last admission, treated with ceftriaxone. 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 Prior bleed two years ago, requiring EGD and banding umbilical hernia s/p small bowel resection HTN PAST SURGICAL HISTORY: Bowel resection for SBO Facial ORIF Social History: Smoking: "Social smoker" -> 3 cigs/day Alcohol: Prior alcohol abuse, multiple drinks/night, Drugs: IVDU. Stopped 7 years ago. Family History: Mother with diabetes Brother with diabetes Brother w/ liver dz 2/2 to presumed Hepatitis from IVDU, x2 transplants Allergies No Known Allergies Allergy (Verified 02/08/17 11:45) HOME MEDICATIONS: Home Medications Medication Instructions Recorded Ferrous Sulfate [Feosol] 325 mg PO DAILY #30 tab 01/12/17 Folic Acid 1 mg PO DAILY #14 tablet 01/12/17 Furosemide [Lasix -] 40 mg PO BID@0600,1400 #28 tablet 01/12/17 Lactulose (Oral Use) [Cephulac -] 30 gm PO QID #60 dose 01/12/17 Nadolol [Corgard -] 40 mg PO DAILY #30 tablet 01/12/17 Pantoprazole Sodium [Protonix] 40 mg PO DAILY #14 tablet. 01/12/17 Spironolactone [Aldactone -] 75 mg PO BID #14 tablet 01/12/17 Lactobacillus Combination No.4 1 each PO DAILY 02/08/17 [Probiotic] Pantoprazole Sodium [Protonix] 40 mg PO DAILY 02/08/17 Tamsulosin HCl [Flomax] 0.4 mg PO HS 02/08/17 REVIEW OF SYSTEMS CONSTITUTIONAL: fever, chills, diaphoresis, malaise, Absent: generalized weakness, loss of appetite, weight change HEENT: Absent: rhinorrhea, nasal congestion, throat pain, throat swelling, difficulty swallowing, mouth swelling, ear pain, eye pain, visual changes CARDIOVASCULAR: Absent: chest pain, syncope, palpitations, irregular heart rate, lightheadedness , peripheral edema RESPIRATORY: shortness of breath, Absent: cough, dyspnea with exertion, orthopnea, wheezing, stridor, hemoptysis GASTROINTESTINAL: abdominal pain, abdominal distension, Absent: nausea, vomiting, diarrhea, constipation, melena, hematochezia GENITOURINARY: Absent: dysuria, frequency, urgency, hesitancy, hematuria, flank pain, genital pain MUSCULOSKELETAL: back pain, Absent: myalgia, arthralgia, joint swelling, neck pain SKIN: Ulcer on R lateral bertrand Absent: rash, itching, pallor HEMATOLOGIC/IMMUNOLOGIC: Absent: easy bleeding, easy bruising, lymphadenopathy, frequent infections ENDOCRINE: Absent: unexplained weight gain, unexplained weight loss, heat intolerance, cold intolerance NEUROLOGIC: Absent: headache, focal weakness or paresthesias, dizziness, unsteady gait, seizure, mental status changes, bladder or bowel incontinence PSYCHIATRIC: anxiety, Absent: depression, suicidal or homicidal ideation, hallucinations. PHYSICAL EXAMINATION Vital Signs - 24 hr 02/08/17 02/08/17 02/08/17 11:48 14:20 15:05 Temperature 99.3 F 100.8 F H Pulse Rate 94 H Pulse Rate [ 79 93 H Apical] Respiratory 17 25 H 20 Rate Blood Pressure 130/60 Blood Pressure 108/61 125/52 [Left Arm] O2 Sat by Pulse 92 L 89 L 98 Oximetry (%) 02/08/17 02/08/17 02/08/17 16:51 17:15 19:11 Temperature 103.7 F H 101.8 F H Pulse Rate Pulse Rate [ 106 H 104 H Apical] Respiratory 22 20 Rate Blood Pressure Blood Pressure 149/95 132/74 [Left Arm] O2 Sat by Pulse 98 95 Oximetry (%) GENERAL: A&Ox3, delayed mentation, poor concentration HEAD: Normal with no signs of trauma. EYES: Pupils equal, round and reactive to light, extraocular movements intact, sclera anicteric, conjunctiva clear. No lid lag. EARS, NOSE, THROAT: Ears normal, nares patent, oropharynx clear without exudates. Moist mucous membranes. NECK: Normal range of motion, supple without lymphadenopathy, JVD, or masses. LUNGS: Decreased breath sounds at bases. No wheezes, and no crackles. No accessory muscle use. HEART: 2/6 systolic ejection murmur best heard at RUSB. Regular rate and rhythm , normal S1 and S2 ABDOMEN: Severely distended. Mildly tender to palpation in LLQ. Negative rebound , murphys. +Fluid wave, shifting dullness. Unable to assess organomegaly. Midline lapartomy scar. Ventral abdominal hernia. MUSCULOSKELETAL: Normal range of motion at all joints. No bony deformities or tenderness. Mild CVA tenderness BL. UPPER EXTREMITIES: 2+ pulses, warm, well-perfused. No cyanosis. No clubbing. No peripheral edema. LOWER EXTREMITIES: 1+ pitting edema BL to knees. L lower leg bandaged, stasis dermatitis noted on L shank, pt refused further examination. 2+ pulses, warm, well-perfused. No calf tenderness. NEUROLOGICAL: Cranial nerves II-XII intact. Delayed speech. Gait not assessed. 5/5 strength in all extremities, sensation to light touch preserved. 2+ biceps, patellar reflexes. +asterixis PSYCHIATRIC: Cooperative. Depressed affect. Poor attention, concentration. Laboratory Results - last 24 hr CBC, BMP 02/08/17 14:49 02/08/17 14:49 02/08/17 02/08/17 02/08/17 14:49 14:49 14:49 WBC 8.7 D RBC 3.84 L Hgb 9.7 L D Hct 30.8 L D MCV 80.2 D MCH 25.4 L MCHC 31.6 L RDW 22.8 H D Plt Count 113 L MPV 7.6 D Neutrophils % 89.8 H D Lymphocytes % 2.8 L D Monocytes % 7.1 Eosinophils % 0.1 D Basophils % 0.2 PT with INR INR Sodium 138 Potassium 5.0 D Chloride 105 Carbon Dioxide 24 Anion Gap 9 BUN 7 D Creatinine 0.7 Creat Clearance w eGFR > 60 Random Glucose 113 H D Lactic Acid 2.8 H* Calcium 8.0 L Total Bilirubin 1.2 H AST 117 H D ALT 44 D Alkaline Phosphatase 201 H Total Protein 7.1 D Albumin 2.0 L Lipase 173 Urine Color Urine Appearance Urine pH Ur Specific [place] Urine Protein Urine Glucose (UA) Urine Ketones Urine Blood Urine Nitrite Urine Bilirubin Urine Urobilinogen Ur Leukocyte Esterase Peritoneal WBC Peritoneal RBC Peritoneal Tot Protein Peritoneal Albumin Peritoneal LDH Peritoneal Glucose Peritoneal Amylase 02/08/17 02/08/17 02/08/17 14:49 15:23 15:33 WBC RBC Hgb Hct MCV MCH MCHC RDW Plt Count MPV Neutrophils % Lymphocytes % Monocytes % Eosinophils % Basophils % PT with INR 16.00 H INR 1.42 H Sodium Potassium Chloride Carbon Dioxide Anion Gap BUN Creatinine Creat Clearance w eGFR Random Glucose Lactic Acid Calcium Total Bilirubin 0.2 D AST ALT Alkaline Phosphatase Total Protein Albumin Lipase Urine Color Urine Appearance Urine pH Ur Specific [place] Urine Protein Urine Glucose (UA) Urine Ketones Urine Blood Urine Nitrite Urine Bilirubin Urine Urobilinogen Ur Leukocyte Esterase Peritoneal WBC Peritoneal RBC Peritoneal Tot Protein 1 Peritoneal Albumin 0 Peritoneal LDH 75 Peritoneal Glucose 152 Peritoneal Amylase 26 02/08/17 02/08/17 02/08/17 15:33 16:10 19:40 WBC RBC Hgb Hct MCV MCH MCHC RDW Plt Count MPV Neutrophils % Lymphocytes % Monocytes % Eosinophils % Basophils % PT with INR INR Sodium Potassium Chloride Carbon Dioxide Anion Gap BUN Creatinine Creat Clearance w eGFR Random Glucose Lactic Acid 3.0 H* Calcium Total Bilirubin AST ALT Alkaline Phosphatase Total Protein Albumin Lipase Urine Color [place] Urine Appearance Slcloudy Urine pH 6.0 Ur Specific [place] 1.031 Urine Protein 1+ H Urine Glucose (UA) Negative Urine Ketones Trace H Urine Blood Negative Urine Nitrite Positive Urine Bilirubin Negative Urine Urobilinogen 4.0 e.u/dl Ur Leukocyte Esterase Negative Peritoneal WBC 345 Peritoneal RBC 918 Peritoneal Tot Protein Peritoneal Albumin Peritoneal LDH Peritoneal Glucose Peritoneal Amylase CXR 02/08 - Shallow inspiration with low lung volumes with no definite airspace consolidation or pleural effusion. EKG 02/08 - NAD, Sinus tachy, rate 100, QTc 441 ASSESSMENT/PLAN: 46 yo w/ pmh of Hep C, cirrhosis, ascites, esophageal varices w/ bleeding ( banding on 11/29), chronic R leg ulcer and small bowel resection, who presents with 3-4 days of worsening abdominal distension and pain with subjective fevers and chills. #Sepsis secondary to possible SBP vs. another source (cellulitis, UTI, PNA..) - Lactate 2.8 on admission, fever to 103.7, tachy to 106 - ID consulted, recs appreciated - f/u all cultures (urine, blood, ascites) - Trend lactate - Ceftriaxone 2gm, as no cefotaxime available - F/u fluid studies to determine PMN count - Trend fever, WBC #Ascites - prior tx tap 1 month ago per pt; has never had SBP before - GI consulted, recs appreciated - Therapeutic para by IR when pt amenable - Pt does not meet criteria for albumin infusion - Cont rifaximin, lactulose - Sodium restricted diet #R leg chronic ulcer - Pt has been seen by Dr. Garcia - Consider vascular consult - Pt refused examination - Will require outpt wound care #PSA - pt currently abstinent of IVDU, alcohol - In[employer] on alcohol cessation - Cont home thiamine/folic acid #Hep C - GI consulted - Will require outpt f/u for management #Thrombocytopenia - likely secondary to liver disease; baseline 50s-100s over past year - trend plts - Monitor for signs of occult bleed, petechial bleeding PPX Heparin subQ TID Protonix FEN PO hydration Daily BMPs Sodium restricted diet Plan discussed with attending, Dr. Willie Crabtree, PGY1 Visit type - Emergency Visit Emergency Visit: Yes ED Registration Date: 02/08/17 Care time: The patient presented to the Emergency Department on the above date and was hospitalized for further evaluation of their emergent condition. - New Patient This patient is new to me today: Yes Date on this admission: 02/09/17 - Critical Care Critical Care patient: No
[2017-02-08 22:09] LABS: PERITONEAL FLUID LYMPHOCYTE 29 %; PERITONEAL FLUID NEUTROPHIL 16 %
[2017-02-08 22:10] LABS: PERITONEAL FLUID MACROPHAGE 29 %; PERITONEAL FLUID MESOTHELIAL 21 %
[2017-02-08 23:26] LABS: ANISOCYTOSIS 1+; PLATELET ESTIMATE DECREASED
[2017-02-08] MEDS: morphine SULFATE 4 MG/ML VIAL IVPUSH PRN (23:27)
[2017-02-09] MEDS: HEPARIN NA (PORCINE) 5,000 UNITS/ML 1ML VIAL SQ SCH ×2 (05:54→14:00)
[2017-02-09] MEDS: morphine SULFATE 4 MG/ML VIAL IVPUSH PRN (07:14)
[2017-02-09] MEDS: FUROSEMIDE 40 MG TABLET (FP) PO SCH ×2 (07:14→16:13)
[2017-02-09 08:26] LABS: BASO % 0.1 % (0-2.0); EOS % 0.6 % (0-4.5); HEMATOCRIT 27.6 % (35.4-49); HEMOGLOBIN 8.8 GM/dL (11.7-16.9); LYMPH % 3.9 % (8-40); MCH 25.7 pg (25.7-33.7); MCHC 31.9 g/dl (32.0-35.9); MEAN CELL VOLUME 80.3 fl (80-96); MEAN PLT VOLUME 8.2 fl (7.5-11.1); MONO % 9.2 % (3.8-10.2); NEUT % 86.2 % (42.8-82.8); PLATELET COUNT 59 K/MM3 (134-434); RBC 3.44 M/mm3 (4.00-5.60); RDW 23.4 % (11.9-15.9); WHITE BLOOD COUNT 9.5 K/mm3 (4.0-10.0)
[2017-02-09 08:35] LABS: ADD RBC MORPHOLOGY YES
[2017-02-09 08:47] LABS: INR 1.96 (0.82-1.09); PROTHROMBIN TIME (PATIENT) 22.1 SEC (9.98-11.88)
[2017-02-09 08:51] LABS: ALBUMIN 1.6 g/dl (3.4-5.0); ANION GAP 9 (8-16); BLOOD UREA NITROGEN 12 mg/dL (7-18); CALCIUM 7.7 mg/dL (8.5-10.1); CHLORIDE 108 mmol/L (98-107); CO2 24 mmol/L (21-32); CREATININE 0.9 mg/dL (0.7-1.3); GLUCOSE,RANDOM 111 mg/dL (74-106); MAGNESIUM 2.1 mg/dL (1.8-2.4); PHOSPHOROUS 2.8 mg/dL (2.5-4.9); POTASSIUM 3.4 mmol/L (3.5-5.1); SGOT/AST 53 U/L (15-37); SGPT/ALT 33 U/L (12-78); SODIUM 141 mmol/L (136-145)
[2017-02-09 08:53] LABS: ALK PHOS 147 U/L (45-117); BILIRUBIN,TOTAL 1.3 mg/dL (0.2-1.0); TOT PROT 5.5 g/dl (6.4-8.2)
[2017-02-09] MEDS ORDERED: CEFTRIAXONE 2 GM in DEXTROSE 5%-WATER - 100 ML IVPB ONE (09:00)
[2017-02-09] MEDS: PANTOPRAZOLE 40 MG TABLET (FP) PO SCH (10:09)
[2017-02-09] MEDS: SPIRONOLACTONE 25 MG TABLET (FP) PO SCH ×2 (10:09→21:10)
[2017-02-09] MEDS: LACTOBACILLUS ACIDOPHILUS 1 EACH TAB (FP) PO SCH (10:10)
[2017-02-09] MEDS: FOLIC ACID 1 MG TABLET (FP) PO SCH (10:10)
[2017-02-09] MEDS: FERROUS SO4 325 MG TABLET (FP) PO SCH (10:10)
[2017-02-09] MEDS: LACTULOSE 20 GM/30 ML UDC (FOR ORAL USE ONLY) PO SCH ×4 (10:15→21:17)
[2017-02-09 11:15] LABS: ANISOCYTOSIS 2+; PLATELET ESTIMATE DECREASED
[2017-02-09] MEDS: morphine CARPU-JECT 10 MG/1 ML DISP.SYRIN IVPUSH PRN ×3 (12:59→20:53)
--- NOTE | 2017-02-09 13:08 | EKG ---
Test Reason : Blood Pressure : / mmHG Vent. Rate : 100 BPM Atrial Rate : 100 BPM P-R Int : 120 ms QRS Dur : 070 ms QT Int : 342 ms P-R-T Axes : 055 017 029 degrees QTc Int : 441 ms NORMAL SINUS RHYTHM NORMAL ECG WHEN COMPARED WITH ECG OF 09-JAN-2017 19:02, QT HAS SHORTENED Confirmed by KENN WEBB MD ([id number]) on 02/09/2017 1:08:36 PM Referred By: Confirmed By:KENN WEBB MD
--- NOTE | 2017-02-09 14:19 | PN ---
Teaching Attending Note Name of Resident: Marian Monsivais ATTENDING PHYSICIAN STATEMENT I saw and evaluated the patient. I reviewed the resident's note and discussed the case with the resident. I agree with the resident's findings and plan as documented. SUBJECTIVE:c/o low back pain. requesting for large volume paracentesis as his abdomen is uncomfortable. claims medication compliance. denies Cp, SOb, fever, chills, N/V/C/D OBJECTIVE: Last Vital Signs Temp Pulse Resp BP Pulse Ox 97.9 F 68 18 114/61 97 02/09/17 10:00 02/09/17 10:00 02/09/17 10:00 02/09/17 10:00 02/09/17 02:08 General NAD, warm Abdomen soft +distended. +diffuse tenderness refused examination of back ASSESSMENT AND PLAN: 46yo M with PMH Hepatitis C, alcohol abuse, cirrhosis, ascites, esophageal varices, umbilical hernia, s/p small bowel resection, admitted to the hospital for severe sepsis. 1. Severe sepsis due to bactermia- Tm 103.7. on arrival concern for SBP and diagnostic paracentesis done and was negative. BCx now with organism. received Ceftriaxone and vanco in the ER. ID consulted and awaiting recommendations. give additional Vanco x1. cont IVF. repeat lactic acid. 2. Low back pain- check XR of the back. Check ESR/CRP as with bactermia concern for OM or discitis. pain control 3. Hypokalmia- KCl po 4. HCV 5. thrombocytopenia- due to cirrhosis. no active bleeding. does not require platelt tranfusion as no planned procedures at this time 6. ETOH cirrhosis- will do large volume paracentesis once medically optimized as not emergent. cont lactulose, spirolactone, lasix 7. Esophageal varices- no bleeding noted. Hgb at baseline. cont nadolol 8. DVT ppx- will stop heparin sq in setting of thrombocytopenia. place SCD
[2017-02-09] MEDS ORDERED: VANCOMYCIN 1,500 MG in DEXTROSE 5%-WATER - 500 ML IVPB ONE (16:00)
[2017-02-09 16:52] LABS: HEMOGLOBIN 9.8 GM/dL (11.7-16.9); MCH 26.2 pg (25.7-33.7); MCHC 32.5 g/dl (32.0-35.9); MEAN CELL VOLUME 80.6 fl (80-96); MEAN PLT VOLUME 8.6 fl (7.5-11.1); PLATELET COUNT 73 K/MM3 (134-434); RBC 3.73 M/mm3 (4.00-5.60); RDW 22.9 % (11.9-15.9)
[2017-02-09] MEDS ORDERED: POTASSIUM CHLORIDE TABS 20 MEQ TABLET.ER (FP) PO ONE (17:45)
--- NOTE | 2017-02-09 19:11 | CON.ID ---
Consult Consult Specialty:: infectious diseases Reason for Consultation:: fever,postive blood cx - History of Present Illness Chief Complaint: pain all over the body History of Present Illness: 6 yo w/ pmh of Hep C, cirrhosis, ascites, esophageal varices w/ bleeding ( banding on 11/29), chronic R leg ulcer and small bowel resection, who presents with 3-4 days of worsening abdominal distension and pain with subjective fevers and chills. Abdominal distension and discomfort occurred progressively, w/ pt now endorsing diffuse mild tenderness as well as pain in lower back and upper thighs, worsened by deep inspiration and changes in position. Pt endorses have a "few drinks" at a [employer] around the same time as onset of symptoms. Pt with hx of recurrent ascites requiring multiple therapeutic paracenteses, however no hx of SBP. Pt denies any lightheadness/vision changes, fever, cough, CP, N/V, decreased PO intake, constipation, dysuria, rashes or new neuro symptoms. He does endorse occasional nonbloody diarrhea and BL LE edema. Pt does not follow with a GI doctor, however was referred to Dr. Rivera during last admission one month ago. 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) Gastrointestinal: Yes: Ascites, Esophageal Varices, Other (Hepatitis, umbilical hernia) Hepatobiliary: Yes: Cirrhosis, Hepatitis C Psych: Yes: Addictions (alchohol Current, Heroin revcovery) Rheumatology: No: Fibromyalgia Endocrine: Yes: Other (hyponatremia) Dermatology: Yes: Other (rt lower extremity cellulitis) - Past Surgical History Past Surgical History: Yes: Colectomy - Alcohol/Substance Use Hx Alcohol Use: Yes Number of Drinks Daily: 3 History of Substance Use: reports: Heroin Date of Last Use: 11/14/16 (see tox report) - Smoking History Smoking history: Never smoked Have you smoked in the past 12 months: No Aproximately how many cigarettes per day: 3 If you are a former smoker, when did you quit?: 10yrs - Social History Usual Living Arrangement: Alone Home Medications - Allergies Allergies/Adverse Reactions: Allergies Allergy/AdvReac Type Severity Reaction Status Date / Time No Known Allergies Allergy Verified 02/08/17 11:45 - Home Medications Home Medications: Ambulatory Orders Ferrous Sulfate [Feosol] 325 mg PO DAILY #30 tab 01/12/17 Folic Acid 1 mg PO DAILY #14 tablet 01/12/17 Furosemide [Lasix -] 40 mg PO BID@0600,1400 #28 tablet 01/12/17 Lactulose (Oral Use) [Cephulac -] 30 gm PO QID #60 dose 01/12/17 Nadolol [Corgard -] 40 mg PO DAILY #30 tablet 01/12/17 Pantoprazole Sodium [Protonix] 40 mg PO DAILY #14 tablet.dr 01/12/17 Spironolactone [Aldactone -] 75 mg PO BID #14 tablet 01/12/17 Lactobacillus Combination No.4 [Probiotic] 1 each PO DAILY 02/08/17 Pantoprazole Sodium [Protonix] 40 mg PO DAILY 02/08/17 Tamsulosin HCl [Flomax] 0.4 mg PO HS 02/08/17 Albuterol Sulfate Inhaler - [Ventolin HFA Inhaler -] 2 puff Q4H PRN 02/09/17 Fluticasone/Salmeterol [Advair Hfa 230-21 Mcg Inhaler] 2 puff BID 02/09/17 Review of Systems - Review of Systems Constitutional: reports: Fever, Weakness Eyes: reports: No Symptoms HENT: reports: No Symptoms Neck: reports: No Symptoms Cardiovascular: reports: No Symptoms Respiratory: reports: No Symptoms Gastrointestinal: reports: Abdominal Pain, Other Genitourinary: reports: No Symptoms Musculoskeletal: reports: Back Pain Integumentary: reports: No Symptoms Neurological: reports: No Symptoms Endocrine: reports: No Symptoms Hematology/Lymphatic: reports: No Symptoms Psychiatric: reports: No Symptoms Physical Exam Vital Signs: Vital Signs Temperature 99.9 F H 02/09/17 14:00 Pulse Rate 84 02/09/17 14:00 Respiratory Rate 18 02/09/17 14:00 Blood Pressure 116/73 02/09/17 14:00 O2 Sat by Pulse Oximetry (%) 100 02/09/17 09:00 Constitutional: Yes: Well Nourished, Anxious, Moderate Distress Eyes: Yes: Conjunctiva Clear Cardiovascular: Yes: Regular Rate and Rhythm Respiratory: Yes: Regular, Poor Air Entry (bases) Gastrointestinal: Yes: Ascites, Distention, Tenderness Musculoskeletal: Yes: WNL Extremities: Yes: Other (chronic wound) Wound/Incision: Yes: Dressing Dry and Intact Neurological: Yes: Alert, Oriented Psychiatric: Yes: Alert, Oriented Labs: CBC, BMP 02/09/17 15:00 02/09/17 07:40 Imaging - Results Chest X-ray: Report Reviewed, Image Reviewed X-ray: Report Reviewed, Image Reviewed Assessment/Plan sepsis bacteremia ascites chr leg wound fever plan abd tap abx await for blood cx final reports rest continue as per primary team
[2017-02-09] MEDS ORDERED: PIPERACILLIN/TAZOB 3.375 GM 50 ML IVPB SCH (19:15)
[2017-02-09] MEDS: PIPERACILLIN/TAZOB 3.375 GM 3.375 GM in DEXTROSE 5%-WATER - 100 ML IVPB SCH (21:10)
[2017-02-09] MEDS: TAMSULOSIN HCL 0.4 MG CAP.ER.24H (FP) PO SCH (21:13)
--- NOTE | 2017-02-09 21:40 | PN ---
Physical Exam: SUBJECTIVE: Patient seen and examined. Pt c/o low back pain and requesting large volume therapeutic paracentesis. Pt denies chest pain, sob, fever, chills , nausea, vomiting, constipation, diarrhea. OBJECTIVE: Vital Signs Period Temp Pulse Resp BP Sys/Choi Pulse Ox Last 24 Hr 97.9 F-99.9 F 68-84 16-18 99-161/53-73 97-100 GENERAL: The patient is awake, alert, and fully oriented, in no acute distress. HEAD: Normal with no signs of trauma. LUNGS: Breath sounds equal, clear to auscultation bilaterally, no wheezes, no crackles, no accessory muscle use. HEART: Regular rate and rhythm, +S1/S2. ABDOMEN: Soft, +diffuse tenderness, +distended, no guarding. EXTREMITIES: Warm, well-perfused, no edema. Right LE vascular ulcer. PSYCH: Normal mood, normal affect. SKIN: Warm, dry, normal turgor, no rashes Laboratory Results - last 24 hr 02/08/17 02/08/17 02/08/17 14:49 15:33 16:10 WBC RBC Hgb Hct MCV MCH MCHC RDW Plt Count MPV Neutrophils % Lymphocytes % Monocytes % Eosinophils % Basophils % Hypochromia 1+ Platelet Estimate Decreased Platelet Comment No clotting detected Polychromasia Poikilocytosis 1+ Anisocytosis 1+ Microcytosis ESR PT with INR INR Sodium Potassium Chloride Carbon Dioxide Anion Gap BUN Creatinine Creat Clearance w eGFR Random Glucose Lactic Acid Calcium Phosphorus Magnesium Total Bilirubin AST ALT Alkaline Phosphatase Ammonia C-Reactive Protein Total Protein Albumin Urine WBC (Auto) 8 Urine RBC (Auto) 6 Ur Epithelial Cells Rare Urine Bacteria Moderate Urine Mucus Many Periton Neutrophils 16 Periton Lymphocytes 29 Periton Mesothelial 21 Periton Macrophages 29 Peritoneal Diff Commnt 02/08/17 02/09/17 02/09/17 19:40 01:20 07:40 WBC RBC Hgb Hct MCV MCH MCHC RDW Plt Count MPV Neutrophils % Lymphocytes % Monocytes % Eosinophils % Basophils % Hypochromia Platelet Estimate Platelet Comment Polychromasia Poikilocytosis Anisocytosis Microcytosis ESR PT with INR INR Sodium Potassium Chloride Carbon Dioxide Anion Gap BUN Creatinine Creat Clearance w eGFR Random Glucose Lactic Acid 3.0 H* 2.4 H* Calcium Phosphorus Magnesium Total Bilirubin AST ALT Alkaline Phosphatase Ammonia 74.44 H C-Reactive Protein Total Protein Albumin Urine WBC (Auto) Urine RBC (Auto) Ur Epithelial Cells Urine Bacteria Urine Mucus Periton Neutrophils Periton Lymphocytes Periton Mesothelial Periton Macrophages Peritoneal Diff Commnt 02/09/17 02/09/17 02/09/17 07:40 07:40 07:40 WBC 9.5 RBC 3.44 L Hgb 8.8 L Hct 27.6 L MCV 80.3 MCH 25.7 MCHC 31.9 L RDW 23.4 H Plt Count 59 L D MPV 8.2 Neutrophils % 86.2 H Lymphocytes % 3.9 L D Monocytes % 9.2 Eosinophils % 0.6 D Basophils % 0.1 Hypochromia Platelet Estimate Decreased Platelet Comment Polychromasia 1+ Poikilocytosis Anisocytosis 2+ Microcytosis 1+ ESR PT with INR 22.10 H INR 1.96 H D Sodium 141 Potassium 3.4 L D Chloride 108 H Carbon Dioxide 24 Anion Gap 9 BUN 12 D Creatinine 0.9 D Creat Clearance w eGFR > 60 Random Glucose 111 H Lactic Acid Calcium 7.7 L Phosphorus 2.8 Magnesium 2.1 Total Bilirubin 1.3 H D AST 53 H D ALT 33 D Alkaline Phosphatase 147 H D Ammonia C-Reactive Protein 5.4 H D Total Protein 5.5 L D Albumin 1.6 L Urine WBC (Auto) Urine RBC (Auto) Ur Epithelial Cells Urine Bacteria Urine Mucus Periton Neutrophils Periton Lymphocytes Periton Mesothelial Periton Macrophages Peritoneal Diff Commnt 02/09/17 02/09/17 02/09/17 15:00 15:00 15:00 WBC 9.0 RBC 3.73 L Hgb 9.8 L D Hct 30.0 L MCV 80.6 MCH 26.2 MCHC 32.5 RDW 22.9 H Plt Count 73 L D MPV 8.6 Neutrophils % Lymphocytes % Monocytes % Eosinophils % Basophils % Hypochromia Platelet Estimate Platelet Comment Polychromasia Poikilocytosis Anisocytosis Microcytosis ESR 25 H PT with INR INR Sodium Potassium Chloride Carbon Dioxide Anion Gap BUN Creatinine Creat Clearance w eGFR Random Glucose Lactic Acid 2.6 H* Calcium Phosphorus Magnesium Total Bilirubin AST ALT Alkaline Phosphatase Ammonia C-Reactive Protein Total Protein Albumin Urine WBC (Auto) Urine RBC (Auto) Ur Epithelial Cells Urine Bacteria Urine Mucus Periton Neutrophils Periton Lymphocytes Periton Mesothelial Periton Macrophages Peritoneal Diff Commnt Active Medications Generic Name Dose Route Start Last Admin Trade Name Freq PRN Reason Stop Dose Admin Acetaminophen 650 mg 12/27/17 21:52 Tylenol - PO Q6H PRN FEVER OR PAIN Ferrous Sulfate 325 mg 02/09/17 10:00 02/09/17 10:10 Feosol - PO 325 mg DAILY [facility] Administration Folic Acid 1 mg 02/09/17 10:00 02/09/17 10:10 Folic Acid - PO 1 mg DAILY [facility] Administration Furosemide 40 mg 02/09/17 06:00 02/09/17 16:13 Lasix - PO 40 mg BID@0600,1400 [facility] Administration Piperacillin Sod/Tazobactam 100 mls @ 200 mls/hr 02/09/17 20:00 Sod 3.375 gm/ Dextrose IVPB Q8H-IV [facility] Lactobacillus Acidophilus 1 tab 02/09/17 10:00 02/09/17 10:10 Bacid - PO 1 tab DAILY [facility] Administration Lactulose 30 gm 02/09/17 10:00 02/09/17 18:25 Cephulac (Oral Use) PO Not Given QID [facility] Morphine Sulfate 1 mg 02/09/17 12:39 02/09/17 20:53 Morphine Injection - IVPUSH 1 mg Q4H PRN Administration PAIN Pantoprazole Sodium 40 mg 02/09/17 10:00 02/09/17 10:09 Protonix - PO 40 mg DAILY [facility] Administration Spironolactone 75 mg 02/09/17 10:00 02/09/17 10:09 Aldactone - PO 75 mg BID [facility] Administration Tamsulosin HCl 0.4 mg 02/09/17 22:00 Flomax - PO HS [facility] IMAGIN02/08/17 CXR -> no definite air space consolidation or pleural effusion 02/09/17 lumbosacral xray -> no compression fracture. Degenerative posterior facet hypertrophy @ L4-L5 and L5-S1. ASSESSMENT/PLAN: 46M with PMH of of Hep C, cirrhosis, ascites, esophageal varices w/ bleeding ( banding on 11/2016), hx of etoh abuse, s/p small bowel resection, presents with worsening abdominal distension and pain, admitted for severe sepsis. # severe sepsis 2/2 bacteremia - febrile, tachycardia, blood culture with organism pending - Vanc and Ceftriaxone given in the ER - Zosyn 3.375g q8hr IVPB (Day 1) - ID Consult - diagnostic paracentesis (-) for SBP - f/u blood and urine cultures - trend lactate # ascites - likely 2/2 liver disease - continue Spironolactone and Lasix - low Na+ diet - continue Lactulose - large volume therapeutic paracentesis once medically optimized # thrombocytopenia - likely 2/2 liver disease - monitor for overt signs of bleeding - trend platelets # low back pain - lumbosacral xray (-) for acute bony abnormalities - pain control with morphine 1gm IVpush q4hr prn # Right LE chronic vascular ulcer - f/u with Vascular Surgeon (Dr. Garcia) for outpt wound care # polysubstance abuse - continue home folic acid - monitor for s/s of withdrawal # esophageal varices - hbg stable - continue Nadolol # Hep C - f/u as outpt # hypokalemia - repleted with Kdur 40meq # FEN - Fluids: po - Electrolytes: continue to monitor - Nutrition: low sodium diet # Prophylaxis - DVT ppx with phillip SCDs, hold pharmacologic ppx 2/2 thrombocytopenia - GI ppx with Protonix Visit type - Emergency Visit Emergency Visit: Yes ED Registration Date: 02/08/17 Care time: The patient presented to the Emergency Department on the above date and was hospitalized for further evaluation of their emergent condition. - New Patient This patient is new to me today: Yes Date on this admission: 02/09/17 - Critical Care Critical Care patient: No
[2017-02-09] MEDS ORDERED: ALPRAZolam 0.25 MG TABLET PO ONE (23:00)
[2017-02-10] MEDS: morphine CARPU-JECT 10 MG/1 ML DISP.SYRIN IVPUSH PRN ×4 (01:01→23:00)
[2017-02-10] MEDS: PIPERACILLIN/TAZOB 3.375 GM 3.375 GM in DEXTROSE 5%-WATER - 100 ML IVPB SCH ×4 (01:01→18:05)
[2017-02-10] MEDS: FUROSEMIDE 40 MG TABLET (FP) PO SCH ×2 (05:21→14:51)
[2017-02-10 08:47] LABS: HEMATOCRIT 30.3 % (35.4-49); HEMOGLOBIN 9.7 GM/dL (11.7-16.9); MCH 25.4 pg (25.7-33.7); MEAN CELL VOLUME 79.6 fl (80-96); MEAN PLT VOLUME 7.7 fl (7.5-11.1); PLATELET COUNT 77 K/MM3 (134-434); RBC 3.81 M/mm3 (4.00-5.60); RDW 23.2 % (11.9-15.9); WHITE BLOOD COUNT 8.8 K/mm3 (4.0-10.0)
[2017-02-10 09:17] LABS: ALBUMIN 1.8 g/dl (3.4-5.0); ANION GAP 6 (8-16); BLOOD UREA NITROGEN 8 mg/dL (7-18); CALCIUM 7.3 mg/dL (8.5-10.1); CHLORIDE 103 mmol/L (98-107); CO2 28 mmol/L (21-32); GLUCOSE,RANDOM 78 mg/dL (74-106); POTASSIUM 3.2 mmol/L (3.5-5.1); SODIUM 137 mmol/L (136-145)
[2017-02-10 09:20] LABS: ALK PHOS 152 U/L (45-117); BILIRUBIN,TOTAL 1.6 mg/dL (0.2-1.0); CREATININE 0.6 mg/dL (0.7-1.3); SGOT/AST 39 U/L (15-37); SGPT/ALT 32 U/L (12-78); TOT PROT 5.9 g/dl (6.4-8.2)
[2017-02-10] MEDS ORDERED: PT OWN MED DRAWER 7, Y5N ONE ×2 (10:04→17:50)
[2017-02-10] MEDS: FERROUS SO4 325 MG TABLET (FP) PO SCH (10:07)
[2017-02-10] MEDS: PANTOPRAZOLE 40 MG TABLET (FP) PO SCH (10:07)
[2017-02-10] MEDS: LACTOBACILLUS ACIDOPHILUS 1 EACH TAB (FP) PO SCH (10:07)
[2017-02-10] MEDS: FOLIC ACID 1 MG TABLET (FP) PO SCH (10:07)
[2017-02-10] MEDS: LACTULOSE 20 GM/30 ML UDC (FOR ORAL USE ONLY) PO SCH ×5 (10:15→21:13)
[2017-02-10] MEDS: POTASSIUM CHLORIDE TABS 20 MEQ TABLET.ER (FP) PO SCH ×2 (11:45→21:10)
[2017-02-10] MEDS: SPIRONOLACTONE 25 MG TABLET (FP) PO SCH ×2 (11:45→21:09)
--- NOTE | 2017-02-10 13:06 | PN ---
Progress Note, Physician History of Present Illness: pain main issue plan to work up his spine remaining afebrile for now tap done results noted - Current Medication List Current Medications: Active Medications Acetaminophen (Tylenol -) 650 mg PO Q6H PRN PRN Reason: FEVER OR PAIN Ferrous Sulfate (Feosol -) 325 mg PO DAILY [facility] Last Admin: 02/10/17 10:07 Dose: 325 mg Folic Acid (Folic Acid -) 1 mg PO DAILY [facility] Last Admin: 02/10/17 10:07 Dose: 1 mg Furosemide (Lasix -) 40 mg PO BID@0600,1400 [facility] Last Admin: 02/10/17 05:21 Dose: 40 mg Piperacillin Sod/Tazobactam (Sod 3.375 gm/ Dextrose) 100 mls @ 200 mls/hr IVPB Q8H-IV [facility] Last Admin: 02/10/17 10:08 Dose: 200 mls/hr Lactobacillus Acidophilus (Bacid -) 1 tab PO DAILY [facility] Last Admin: 02/10/17 10:07 Dose: 1 tab Lactulose (Cephulac (Oral Use)) 30 gm PO QID [facility] Last Admin: 02/10/17 10:15 Dose: Not Given Morphine Sulfate (Morphine Injection -) 1 mg IVPUSH Q4H PRN PRN Reason: PAIN Last Admin: 02/10/17 09:54 Dose: 1 mg Pantoprazole Sodium (Protonix -) 40 mg PO DAILY [facility] Last Admin: 02/10/17 10:07 Dose: 40 mg Potassium Chloride (K-Dur -) 20 meq PO BID [facility] Stop: 02/10/17 23:59 Last Admin: 02/10/17 11:45 Dose: 20 meq Spironolactone (Aldactone -) 75 mg PO BID [facility] Last Admin: 02/10/17 11:45 Dose: 75 mg Tamsulosin HCl (Flomax -) 0.4 mg PO HS [facility] Last Admin: 02/09/17 21:13 Dose: 0.4 mg - Objective Vital Signs: Vital Signs Temperature 99.1 F 02/10/17 08:44 Pulse Rate 86 02/10/17 11:43 Respiratory Rate 24 02/10/17 11:43 Blood Pressure 122/73 02/10/17 11:43 O2 Sat by Pulse Oximetry (%) 100 02/09/17 21:00 Constitutional: Yes: Calm, Moderate Distress Eyes: Yes: Conjunctiva Clear Cardiovascular: Yes: Regular Rate and Rhythm Respiratory: Yes: Regular, CTA Bilaterally Gastrointestinal: Yes: Ascites, Distention Musculoskeletal: Yes: WNL Extremities: Yes: Other Wound/Incision: Yes: Dressing Dry and Intact Neurological: Yes: Alert, Oriented Psychiatric: Yes: Alert Labs: CBC, BMP 02/10/17 08:11 02/10/17 08:11 INR, PTT INR 1.96 (0.82-1.09) H D 02/09/17 07:40 Assessment/Plan sepsis bacteremia ascites chr leg wound fever uti plan for mri of the back patien refused today plan abd tap abx await for blood cx final reports rest continue as per primary team repeat blood cx
[2017-02-10] MEDS ORDERED: morphine CARPU-JECT 10 MG/1 ML DISP.SYRIN IVPUSH PRN (13:50)
--- NOTE | 2017-02-10 14:08 | PN ---
Teaching Attending Note Name of Resident: Marian Monsivais ATTENDING PHYSICIAN STATEMENT I saw and evaluated the patient. I reviewed the resident's note and discussed the case with the resident. I agree with the resident's findings and plan as documented. SUBJECTIVE:c/o back pain not relieved with pain medications. refuses to move with pain. dnies Cp, SOB,fever, chills, N/v/C/D OBJECTIVE: Last Vital Signs Temp Pulse Resp BP Pulse Ox 99.1 F 86 24 122/73 95 02/10/17 08:44 02/10/17 11:43 02/10/17 11:43 02/10/17 11:43 02/10/17 10:00 General NAD, CV S1 S2 + no murmur Abdomen soft +distended. +diffuse tenderness extremities no asterxis refused examination of back ASSESSMENT AND PLAN: 46yo M with PMH Hepatitis C, alcohol abuse, cirrhosis, ascites, esophageal varices, umbilical hernia, s/p small bowel resection, admitted to the hospital for severe sepsis. 1. Severe sepsis due to GBS bacteremia- afebrile. lactic acidosis resolved. continues to have back pain. MRI spine. check Echo to r/o endocarditis. on zosyn day 2. will d/w ID about abx regimen. 2. Low back pain-concern for OM and discitis. awaiting MRI 3. Hypokalmia- KCl po 4. HCV 5. thrombocytopenia- due to cirrhosis. no active bleeding. does not require platelet tranfusion as no planned procedures at this time 6. ETOH cirrhosis- will do large volume paracentesis once medically optimized as not emergent. cont lactulose, spirolactone, lasix 7. Esophageal varices- no bleeding noted. Hgb at baseline. cont nadolol 8. DVT ppx- will stop heparin sq in setting of thrombocytopenia. place SCD
[2017-02-10] MEDS ORDERED: ALPRAZolam 0.25 MG TABLET PO ONE (14:30)
--- NOTE | 2017-02-10 17:07 | PN ---
Physical Exam: SUBJECTIVE: Patient seen and examined. Pt c/o back pain that is not relieved with medications, morphine increased to 2mg IVpush q4hr. Pt refuses to move 2/ 2 pain. Pt also c/o anxiety. Pt denies nausea, vomiting, diarrhea, chest pain , sob, abdominal pain. OBJECTIVE: Vital Signs Period Temp Pulse Resp BP Sys/Choi Pulse Ox Last 24 Hr 98.7 F-99.3 F 79-91 18-24 116-133/72-76 95-100 GENERAL: The patient is awake, alert, and fully oriented, in no acute distress. LUNGS: Breath sounds equal, clear to auscultation bilaterally, no wheezes, no crackles, no accessory muscle use. HEART: Regular rate and rhythm, +S1/S2. ABDOMEN: Soft, +diffuse tenderness, +distended, +fluid wave, normoactive bowel sounds, +caput medusae, no guarding. EXTREMITIES: Warm, well-perfused, no edema. Right LE vascular ulcer. SKIN: Warm, dry, normal turgor, no rashes Laboratory Results - last 24 hr 02/09/17 02/09/17 02/09/17 07:40 15:00 15:00 WBC RBC Hgb Hct MCV MCH MCHC RDW Plt Count MPV ESR 25 H Sodium Potassium Chloride Carbon Dioxide Anion Gap BUN Creatinine Creat Clearance w eGFR Random Glucose Lactic Acid 2.6 H* Calcium Total Bilirubin AST ALT Alkaline Phosphatase C-Reactive Protein 5.4 H D Total Protein Albumin 02/09/17 02/10/17 02/10/17 15:00 08:11 08:11 WBC 9.0 8.8 RBC 3.73 L 3.81 L Hgb 9.8 L D 9.7 L Hct 30.0 L 30.3 L MCV 80.6 79.6 L MCH 26.2 25.4 L MCHC 32.5 32.0 RDW 22.9 H 23.2 H Plt Count 73 L D 77 L MPV 8.6 7.7 D ESR Sodium Potassium Chloride Carbon Dioxide Anion Gap BUN Creatinine Creat Clearance w eGFR Random Glucose Lactic Acid 1.2 Calcium Total Bilirubin AST ALT Alkaline Phosphatase C-Reactive Protein Total Protein Albumin 02/10/17 08:11 WBC RBC Hgb Hct MCV MCH MCHC RDW Plt Count MPV ESR Sodium 137 Potassium 3.2 L Chloride 103 Carbon Dioxide 28 Anion Gap 6 L BUN 8 D Creatinine 0.6 L D Creat Clearance w eGFR > 60 Random Glucose 78 D Lactic Acid Calcium 7.3 L Total Bilirubin 1.6 H D AST 39 H D ALT 32 Alkaline Phosphatase 152 H C-Reactive Protein Total Protein 5.9 L Albumin 1.8 L Active Medications Generic Name Dose Route Start Last Admin Trade Name Freq PRN Reason Stop Dose Admin Acetaminophen 650 mg 02/08/17 21:52 Tylenol - PO Q6H PRN FEVER OR PAIN Alprazolam 1 mg 02/10/17 14:30 Xanax - PO 02/10/17 14:31 ONCE ONE Ferrous Sulfate 325 mg 02/09/17 10:00 02/10/17 10:07 Feosol - PO 325 mg DAILY [facility] Administration Folic Acid 1 mg 02/09/17 10:00 02/10/17 10:07 Folic Acid - PO 1 mg DAILY [facility] Administration Furosemide 40 mg 02/09/17 06:00 02/10/17 14:51 Lasix - PO 40 mg BID@0600,1400 [facility] Administration Piperacillin Sod/Tazobactam 100 mls @ 200 mls/hr 02/09/17 20:00 02/10/17 10: 08 Sod 3.375 gm/ Dextrose IVPB 200 mls/hr Q8H-IV [facility] Administration Lactobacillus Acidophilus 1 tab 02/09/17 10:00 02/10/17 10:07 Bacid - PO 1 tab DAILY [facility] Administration Lactulose 30 gm 02/09/17 10:00 02/10/17 15:20 Cephulac (Oral Use) PO 30 gm QID [facility] Administration Morphine Sulfate 2 mg 02/10/17 13:50 02/10/17 14:45 Morphine Injection - IVPUSH 2 mg Q4H PRN Administration PAIN Pantoprazole Sodium 40 mg 02/09/17 10:00 02/10/17 10:07 Protonix - PO 40 mg DAILY [facility] Administration Potassium Chloride 20 meq 02/10/17 10:30 02/10/17 11:45 K-Dur - PO 02/10/17 23:59 20 meq BID [facility] Administration Spironolactone 75 mg 02/09/17 10:00 02/10/17 11:45 Aldactone - PO 75 mg BID [facility] Administration Tamsulosin HCl 0.4 mg 02/09/17 22:00 02/09/17 21:13 Flomax - PO 0.4 mg HS [facility] Administration IMAGIN02/10/17 Echo -> Left ventricular systolic function normal. Mild MR and TR. No pericardial effusion. ASSESSMENT/PLAN: 46M with PMH of of Hep C, cirrhosis, ascites, esophageal varices w/ bleeding ( banding on 11/2016), hx of etoh abuse, s/p small bowel resection, presents with worsening abdominal distension and pain, admitted for severe sepsis. # severe sepsis 2/2 bacteremia - blood culture (+) for Strep Agalactiae Group B - Zosyn 3.375g q8hr IVPB (Day 2) - ID Consult - urine culture growing lactose fermenting (-) bacilli - lactic acidosis resolved - Echo (-) for endocarditis # low back pain - f/u lumbar MRI to assess for osteomyelitis and discitis - morphine increased to 3gm IVpush q4hr prn - ativan prn added for anxiety # thrombocytopenia - likely 2/2 liver disease - slightly improved today - monitor for overt signs of bleeding - trend platelets - hold heparin in setting of thrombocytopenia # ascites - likely 2/2 liver disease - continue Spironolactone and Lasix - low Na+ diet - continue Lactulose - large volume therapeutic paracentesis once medically optimized # Right LE chronic vascular ulcer - f/u with Vascular Surgeon (Dr. Garcia) for outpt wound care # polysubstance abuse - continue home folic acid - monitor for s/s of withdrawal # esophageal varices - hbg stable - continue Nadolol # hypokalemia - repleted with Kdur 20meq BID x 2 doses # FEN - Fluids: po - Electrolytes: continue to monitor - Nutrition: low sodium diet # Prophylaxis - DVT ppx with phillip SCDs, hold pharmacologic ppx 2/2 thrombocytopenia - GI ppx with Protonix Visit type - Emergency Visit Emergency Visit: Yes ED Registration Date: 02/08/17 Care time: The patient presented to the Emergency Department on the above date and was hospitalized for further evaluation of their emergent condition. - New Patient This patient is new to me today: No - Critical Care Critical Care patient: No
[2017-02-10] MEDS: LORazepam 1 MG TABLET PO PRN (17:44)
[2017-02-10] MEDS ORDERED: morphine CARPU-JECT 10 MG/1 ML DISP.SYRIN IVPUSH ONE (18:30)
[2017-02-10] MEDS: TAMSULOSIN HCL 0.4 MG CAP.ER.24H (FP) PO SCH (21:09)
[2017-02-11] MEDS: PIPERACILLIN/TAZOB 3.375 GM 3.375 GM in DEXTROSE 5%-WATER - 100 ML IVPB SCH ×3 (01:45→17:43)
[2017-02-11] MEDS: LORazepam 1 MG TABLET PO PRN ×3 (02:04→22:34)
[2017-02-11] MEDS: morphine CARPU-JECT 10 MG/1 ML DISP.SYRIN IVPUSH PRN ×5 (03:15→20:37)
[2017-02-11] MEDS: FUROSEMIDE 40 MG TABLET (FP) PO SCH ×2 (06:12→14:03)
[2017-02-11 08:42] LABS: ANION GAP 9 (8-16); BLOOD UREA NITROGEN 6 mg/dL (7-18); CALCIUM 7.1 mg/dL (8.5-10.1); CHLORIDE 102 mmol/L (98-107); CO2 26 mmol/L (21-32); CREATININE 0.5 mg/dL (0.7-1.3); GLUCOSE,RANDOM 100 mg/dL (74-106); POTASSIUM 3.3 mmol/L (3.5-5.1); SODIUM 137 mmol/L (136-145)
[2017-02-11 08:49] LABS: HEMATOCRIT 29.7 % (35.4-49); HEMOGLOBIN 9.5 GM/dL (11.7-16.9); MCH 25.4 pg (25.7-33.7); MCHC 32.1 g/dl (32.0-35.9); MEAN CELL VOLUME 79.1 fl (80-96); MEAN PLT VOLUME 8.3 fl (7.5-11.1); PLATELET COUNT 88 K/MM3 (134-434); RBC 3.75 M/mm3 (4.00-5.60); RDW 22.4 % (11.9-15.9); WHITE BLOOD COUNT 8.3 K/mm3 (4.0-10.0)
[2017-02-11] MEDS ORDERED: PT OWN MED DRAWER 7, Y5N ONE ×2 (11:24→17:34)
[2017-02-11] MEDS: SPIRONOLACTONE 25 MG TABLET (FP) PO SCH ×2 (11:27→22:22)
[2017-02-11] MEDS: FOLIC ACID 1 MG TABLET (FP) PO SCH (11:27)
[2017-02-11] MEDS: FERROUS SO4 325 MG TABLET (FP) PO SCH (11:27)
[2017-02-11] MEDS: LACTULOSE 20 GM/30 ML UDC (FOR ORAL USE ONLY) PO SCH ×5 (11:27→22:25)
[2017-02-11] MEDS: LACTOBACILLUS ACIDOPHILUS 1 EACH TAB (FP) PO SCH (11:28)
[2017-02-11] MEDS: PANTOPRAZOLE 40 MG TABLET (FP) PO SCH (11:28)
--- NOTE | 2017-02-11 13:59 | PN ---
Progress Note (short form) - Note Progress Note: c/o back pain., unable to walk due to the pain. dnies CP, SOB, fever, chills, N/ V/C/D Current Medications Generic Name Dose Route Start Last Admin Trade Name Freq PRN Reason Stop Dose Admin Acetaminophen 650 mg 02/08/17 21:52 Tylenol - PO Q6H PRN FEVER OR PAIN Ferrous Sulfate 325 mg 02/09/17 10:00 02/11/17 11:27 Feosol - PO 325 mg DAILY [facility] Administration Folic Acid 1 mg 02/09/17 10:00 02/11/17 11:27 Folic Acid - PO 1 mg DAILY [facility] Administration Furosemide 40 mg 02/09/17 06:00 02/11/17 06:12 Lasix - PO 40 mg BID@0600,1400 [facility] Administration Piperacillin Sod/Tazobactam 100 mls @ 200 mls/hr 02/09/17 20:00 02/11/17 11: 29 Sod 3.375 gm/ Dextrose IVPB 200 mls/hr Q8H-IV [facility] Administration Lactobacillus Acidophilus 1 tab 02/09/17 10:00 02/11/17 11:28 Bacid - PO 1 tab DAILY [facility] Administration Lactulose 30 gm 02/09/17 10:00 02/11/17 11:27 Cephulac (Oral Use) PO 30 gm QID [facility] Administration Lorazepam 2 mg 02/10/17 17:29 02/11/17 02:04 Ativan - PO 2 mg TID PRN Administration ANXIETY Morphine Sulfate 3 mg 02/10/17 17:12 02/11/17 11:28 Morphine Injection - IVPUSH 3 mg Q4H PRN Administration PAIN Pantoprazole Sodium 40 mg 02/09/17 10:00 02/11/17 11:28 Protonix - PO 40 mg DAILY [facility] Administration Spironolactone 75 mg 02/09/17 10:00 02/11/17 11:27 Aldactone - PO 75 mg BID [facility] Administration Tamsulosin HCl 0.4 mg 02/09/17 22:00 02/10/17 21:09 Flomax - PO 0.4 mg HS [facility] Administration Last Vital Signs Temp Pulse Resp BP Pulse Ox 99.1 F 102 H 20 133/73 95 02/11/17 06:00 02/11/17 06:00 02/11/17 06:00 02/11/17 06:00 02/10/17 21:00 General NAD, CV S1 S2 + no murmur Abdomen soft +distended. +diffuse tenderness extremities no asterxis refused examination of back CBCD WBC 8.3 K/mm3 (4.0-10.0) 02/11/17 07:30 RBC 3.75 M/mm3 (4.00-5.60) L 02/11/17 07:30 Hgb 9.5 GM/dL (11.7-16.9) L 02/11/17 07:30 Hct 29.7 % (35.4-49) L 02/11/17 07:30 MCV 79.1 fl (80-96) L 02/11/17 07:30 MCHC 32.1 g/dl (32.0-35.9) 02/11/17 07:30 RDW 22.4 % (11.9-15.9) H 02/11/17 07:30 Plt Count 88 K/MM3 (134-434) L 02/11/17 07:30 MPV 8.3 fl (7.5-11.1) 02/11/17 07:30 CMP Sodium 137 mmol/L (136-145) 02/11/17 07:30 Potassium 3.3 mmol/L (3.5-5.1) L 02/11/17 07:30 Chloride 102 mmol/L (98-107) 02/11/17 07:30 Carbon Dioxide 26 mmol/L (21-32) 02/11/17 07:30 Anion Gap 9 (8-16) 02/11/17 07:30 BUN 6 mg/dL (7-18) L D 02/11/17 07:30 Creatinine 0.5 mg/dL (0.7-1.3) L 02/11/17 07:30 Creat Clearance w eGFR > 60 (>60) 02/10/17 08:11 Calcium 7.1 mg/dL (8.5-10.1) L 02/11/17 07:30 Total Bilirubin 1.6 mg/dL (0.2-1.0) H D 02/10/17 08:11 AST 39 U/L (15-37) H D 02/10/17 08:11 ALT 32 U/L (12-78) 02/10/17 08:11 Alkaline Phosphatase 152 U/L (45-117) H 02/10/17 08:11 Total Protein 5.9 g/dl (6.4-8.2) L 02/10/17 08:11 Albumin 1.8 g/dl (3.4-5.0) L 02/10/17 08:11 Microbiology 02/08/17 14:49 Blood Culture - Preliminary Blood - Peripheral Venous Strep Agalactiae Group B 02/08/17 15:33 Gram Stain - Final Paracentesis Body Fluid Culture - Final NO GROWTH OF AEROBIC ORGANISMS AFTER 48 HOURS INCUBATION Anaerobic Culture - Final NO ANAEROBES WERE ISOLATED 02/08/17 16:10 Urine Culture - Final Urine - Urine Clean Catch Klebsiella Pneumoniae ASSESSMENT AND PLAN: 46yo M with PMH Hepatitis C, alcohol abuse, cirrhosis, ascites, esophageal varices, umbilical hernia, s/p small bowel resection, admitted to the hospital for severe sepsis. 1. Severe sepsis due to GBS bacteremia- afebrile. lactic acidosis resolved. continues to have back pain. MRI spine. echo negative for endocarditis. on zosyn day 3. will cont for 2 more days. 2. Kelbsiella UTI- on zosyn. 3. Low back pain-concern for OM and discitis. awaiting MRI 4. Hypokalmia- KCl po 5. HCV 6. thrombocytopenia- due to cirrhosis. no active bleeding. does not require platelet tranfusion as no planned procedures at this time 7. ETOH cirrhosis- will do large volume paracentesis once medically optimized as not emergent. cont lactulose, spirolactone, lasix 8. Esophageal varices- no bleeding noted. Hgb at baseline. cont nadolol 9. DVT ppx- will stop heparin sq in setting of thrombocytopenia. on SCD Visit type - Emergency Visit Emergency Visit: Yes ED Registration Date: 02/08/17 Care time: The patient presented to the Emergency Department on the above date and was hospitalized for further evaluation of their emergent condition. - New Patient This patient is new to me today: No - Critical Care Critical Care patient: No - Discharge Referral Referred to [facility] No
[2017-02-11] MEDS ORDERED: KCL 10 MEQ IVPB 10 MEQ/100 ML INFUS.BAG IVPB SCH (14:00)
[2017-02-11] MEDS ORDERED: POTASSIUM CHLORIDE 20 MEQ in SODIUM CHLORIDE 250 ML IVPB ONE (14:15)
--- NOTE | 2017-02-11 15:11 | PN ---
Progress Note, Physician History of Present Illness: stable still c/o of back pain low grade fever - Current Medication List Current Medications: Active Medications Acetaminophen (Tylenol -) 650 mg PO Q6H PRN PRN Reason: FEVER OR PAIN Ferrous Sulfate (Feosol -) 325 mg PO DAILY [facility] Last Admin: 02/11/17 11:27 Dose: 325 mg Folic Acid (Folic Acid -) 1 mg PO DAILY [facility] Last Admin: 02/11/17 11:27 Dose: 1 mg Furosemide (Lasix -) 40 mg PO BID@0600,1400 [facility] Last Admin: 02/11/17 14:03 Dose: 40 mg Piperacillin Sod/Tazobactam (Sod 3.375 gm/ Dextrose) 100 mls @ 200 mls/hr IVPB Q8H-IV [facility] Last Admin: 02/11/17 11:29 Dose: 200 mls/hr Potassium Chloride 20 meq/ (Sodium Chloride) 260 mls @ 130 mls/hr IVPB ONCE ONE Stop: 02/11/17 16:14 Lactobacillus Acidophilus (Bacid -) 1 tab PO DAILY [facility] Last Admin: 02/11/17 11:28 Dose: 1 tab Lactulose (Cephulac (Oral Use)) 30 gm PO QID [facility] Last Admin: 02/11/17 14:01 Dose: 30 gm Lorazepam (Ativan -) 2 mg PO TID PRN PRN Reason: ANXIETY Last Admin: 02/11/17 14:03 Dose: 2 mg Morphine Sulfate (Morphine Injection -) 3 mg IVPUSH Q4H PRN PRN Reason: PAIN Last Admin: 02/11/17 11:28 Dose: 3 mg Pantoprazole Sodium (Protonix -) 40 mg PO DAILY [facility] Last Admin: 02/11/17 11:28 Dose: 40 mg Potassium Chloride (K-Dur -) 20 meq PO DAILY [facility] Spironolactone (Aldactone -) 75 mg PO BID [facility] Last Admin: 02/11/17 11:27 Dose: 75 mg Tamsulosin HCl (Flomax -) 0.4 mg PO HS [facility] Last Admin: 02/10/17 21:09 Dose: 0.4 mg - Objective Vital Signs: Vital Signs Temperature 99.1 F 02/11/17 06:00 Pulse Rate 102 H 02/11/17 06:00 Respiratory Rate 20 02/11/17 06:00 Blood Pressure 133/73 02/11/17 06:00 O2 Sat by Pulse Oximetry (%) 95 02/10/17 21:00 Constitutional: Yes: Moderate Distress Eyes: Yes: Conjunctiva Clear Cardiovascular: Yes: Regular Rate and Rhythm Respiratory: Yes: Regular, CTA Bilaterally Gastrointestinal: Yes: Soft, Ascites, Distention Musculoskeletal: Yes: WNL Extremities: Yes: Other Neurological: Yes: Alert, Oriented Psychiatric: Yes: Alert, Oriented Labs: CBC, BMP 02/11/17 07:30 02/11/17 07:30 INR, PTT INR 1.96 (0.82-1.09) H D 02/09/17 07:40 Assessment/Plan sepsis bacteremia ascites chr leg wound fever uti plan for mri of the back patient refused today plan abd tap abx await for blood cx final reports rest continue as per primary team repeat blood cx
[2017-02-11] MEDS: POTASSIUM CHLORIDE TABS 20 MEQ TABLET.ER (FP) PO SCH (17:43)
[2017-02-11] MEDS: TAMSULOSIN HCL 0.4 MG CAP.ER.24H (FP) PO SCH (22:21)
[2017-02-12] MEDS: PIPERACILLIN/TAZOB 3.375 GM 3.375 GM in DEXTROSE 5%-WATER - 100 ML IVPB SCH ×3 (02:21→17:00)
[2017-02-12] MEDS: morphine CARPU-JECT 10 MG/1 ML DISP.SYRIN IVPUSH PRN ×4 (03:12→18:14)
[2017-02-12] MEDS: FUROSEMIDE 40 MG TABLET (FP) PO SCH ×2 (05:52→13:53)
[2017-02-12 08:13] LABS: ANION GAP 7 (8-16); BLOOD UREA NITROGEN 5 mg/dL (7-18); CHLORIDE 101 mmol/L (98-107); CO2 27 mmol/L (21-32); CREATININE 0.5 mg/dL (0.7-1.3); GLUCOSE,RANDOM 82 mg/dL (74-106); MAGNESIUM 1.7 mg/dL (1.8-2.4); POTASSIUM 3.7 mmol/L (3.5-5.1); SODIUM 135 mmol/L (136-145)
[2017-02-12 08:21] LABS: CALCIUM 7.6 mg/dL (8.5-10.1)
[2017-02-12] MEDS ORDERED: PT OWN MED DRAWER 7, Y5N ONE ×3 (08:49→18:01)
[2017-02-12] MEDS: FOLIC ACID 1 MG TABLET (FP) PO SCH (09:00)
[2017-02-12] MEDS: POTASSIUM CHLORIDE TABS 20 MEQ TABLET.ER (FP) PO SCH (09:00)
[2017-02-12] MEDS: FERROUS SO4 325 MG TABLET (FP) PO SCH (09:00)
[2017-02-12] MEDS: PANTOPRAZOLE 40 MG TABLET (FP) PO SCH (09:00)
[2017-02-12] MEDS: SPIRONOLACTONE 25 MG TABLET (FP) PO SCH ×2 (09:00→22:50)
[2017-02-12] MEDS: LACTOBACILLUS ACIDOPHILUS 1 EACH TAB (FP) PO SCH (09:00)
[2017-02-12] MEDS: LACTULOSE 20 GM/30 ML UDC (FOR ORAL USE ONLY) PO SCH ×4 (09:00→22:50)
[2017-02-12] MEDS ORDERED: MAGNESIUM OXIDE 400 MG TABLET (FP) PO ONE ×2 (10:16→13:45)
[2017-02-12] MEDS: LORazepam 1 MG TABLET PO PRN ×2 (13:53→16:57)
--- NOTE | 2017-02-12 15:00 | PN ---
Teaching Attending Note Name of Resident: Marian Monsivais ATTENDING PHYSICIAN STATEMENT I saw and evaluated the patient. I reviewed the resident's note and discussed the case with the resident. I agree with the resident's findings and plan as documented. SUBJECTIVE:pt is sleeping comfortable when entering room, on awakening him c/o severe back pain unable to move or sleep OBJECTIVE: Last Vital Signs Temp Pulse Resp BP Pulse Ox 98.5 F 96 H 18 129/75 99 02/12/17 10:00 02/12/17 10:00 02/12/17 10:00 02/12/17 10:00 02/12/17 09:00 General NAD Abdomen soft +distended. not tender ASSESSMENT AND PLAN: 46yo M with PMH Hepatitis C, alcohol abuse, cirrhosis, ascites, esophageal varices, umbilical hernia, s/p small bowel resection, admitted to the hospital for severe sepsis. 1. Severe sepsis due to GBS bacteremia- afebrile. lactic acidosis resolved. continues to have back pain. MRI spine reading pending. echo negative for endocarditis. repeat BCx negative. pt state pain medications not helping however on my observation pt is always sleeping comfortable throughout the day. discussed with pt that his pain can not be so severe if he is constantly sleeping. addressed concern of drug forming habits. encouraged to get OOB to chair. reduce morphine. on day 4. ID on board. PT assessment on Monday ( no one here for holiday weekend) 2. Kelbsiella UTI- on sy. 3. Low back pain-concern for OM and discitis. awaiting MRI 4. Hypokalmia- Kcl po standing 5. hypomagnesemi- Mg 800mg 6. HCV 7. thrombocytopenia- due to cirrhosis. no active bleeding. does not require platelet tranfusion as no planned procedures at this time 8. ETOH cirrhosis- will do large volume paracentesis once medically optimized as not emergent. cont lactulose, spirolactone, lasix 9. Esophageal varices- no bleeding noted. Hgb at baseline. cont nadolol 10. DVT ppx- will stop heparin sq in setting of thrombocytopenia. on SCD 11. awaiting PT assessment. agreeable to [facility] placement
--- NOTE | 2017-02-12 15:08 | PN ---
Progress Note, Physician History of Present Illness: stable pain main complaints mri done results awaited - Current Medication List Current Medications: Active Medications Acetaminophen (Tylenol -) 650 mg PO Q6H PRN PRN Reason: FEVER OR PAIN Ferrous Sulfate (Feosol -) 325 mg PO DAILY [facility] Last Admin: 02/12/17 09:00 Dose: 325 mg Folic Acid (Folic Acid -) 1 mg PO DAILY [facility] Last Admin: 02/12/17 09:00 Dose: 1 mg Furosemide (Lasix -) 40 mg PO BID@0600,1400 [facility] Last Admin: 02/12/17 13:53 Dose: 40 mg Piperacillin Sod/Tazobactam (Sod 3.375 gm/ Dextrose) 100 mls @ 200 mls/hr IVPB Q8H-IV [facility] Last Admin: 02/12/17 09:00 Dose: 200 mls/hr Lactobacillus Acidophilus (Bacid -) 1 tab PO DAILY [facility] Last Admin: 02/12/17 09:00 Dose: 1 tab Lactulose (Cephulac (Oral Use)) 30 gm PO QID [facility] Last Admin: 02/12/17 13:53 Dose: 30 gm Lorazepam (Ativan -) 2 mg PO TID PRN PRN Reason: ANXIETY Last Admin: 02/12/17 13:53 Dose: 2 mg Morphine Sulfate (Morphine Injection -) 3 mg IVPUSH Q4H PRN PRN Reason: PAIN Last Admin: 02/12/17 14:04 Dose: 3 mg Pantoprazole Sodium (Protonix -) 40 mg PO DAILY [facility] Last Admin: 02/12/17 09:00 Dose: 40 mg Potassium Chloride (K-Dur -) 20 meq PO DAILY [facility] Last Admin: 02/12/17 09:00 Dose: 20 meq Spironolactone (Aldactone -) 75 mg PO BID [facility] Last Admin: 02/12/17 09:00 Dose: 75 mg Tamsulosin HCl (Flomax -) 0.4 mg PO HS [facility] Last Admin: 02/11/17 22:21 Dose: 0.4 mg - Objective Vital Signs: Vital Signs Temperature 98.5 F 02/12/17 10:00 Pulse Rate 96 H 02/12/17 10:00 Respiratory Rate 18 02/12/17 10:00 Blood Pressure 129/75 02/12/17 10:00 O2 Sat by Pulse Oximetry (%) 99 02/12/17 09:00 Constitutional: Yes: Mild Distress Cardiovascular: Yes: Regular Rate and Rhythm Respiratory: Yes: Regular, Poor Air Entry Gastrointestinal: Yes: Ascites, Distention Musculoskeletal: Yes: Back Pain Extremities: Yes: Other Neurological: Yes: Alert, Oriented Psychiatric: Yes: Alert Labs: CBC, BMP 02/11/17 07:30 02/12/17 06:45 INR, PTT INR 1.96 (0.82-1.09) H D 02/09/17 07:40 Assessment/Plan sepsis bacteremia ascites chr leg wound fever uti plan for mri of the back patient refused today plan await for repat cx if repeat cx negative tomorrow and mri negative will switch to oral abx rest as per primary team
--- NOTE | 2017-02-12 16:36 | PN ---
Physical Exam: SUBJECTIVE: Patient seen and examined. Pt resting comfortably, upon awakening ( even before opening his eyes) pt c/o severe back pain and reports he is unable to move or sleep. No fevers, chills. OBJECTIVE: Vital Signs Period Temp Pulse Resp BP Sys/Choi Pulse Ox Last 24 Hr 98.4 F-100.3 F 7-106 18-22 119-129/67-78 96-99 GENERAL: The patient is awake, alert, and fully oriented, in no acute distress. LUNGS: Breath sounds equal, clear to auscultation bilaterally, no wheezes, no crackles, no accessory muscle use. HEART: Regular rate and rhythm, +S1/S2. ABDOMEN: Soft, nontender, +distended, +fluid wave. EXTREMITIES: Warm, well-perfused, no edema. Right LE vascular ulcer with dressing. SKIN: Warm, dry, normal turgor, no rashes Laboratory Results - last 24 hr 02/12/17 06:45 Sodium 135 L Potassium 3.7 Chloride 101 Carbon Dioxide 27 Anion Gap 7 L BUN 5 L Creatinine 0.5 L Random Glucose 82 Calcium 7.6 L Magnesium 1.7 L Active Medications Generic Name Dose Route Start Last Admin Trade Name Freq PRN Reason Stop Dose Admin Acetaminophen 650 mg 02/08/17 21:52 Tylenol - PO Q6H PRN FEVER OR PAIN Ferrous Sulfate 325 mg 02/09/17 10:00 02/12/17 09:00 Feosol - PO 325 mg DAILY [facility] Administration Folic Acid 1 mg 02/09/17 10:00 02/12/17 09:00 Folic Acid - PO 1 mg DAILY [facility] Administration Furosemide 40 mg 02/09/17 06:00 02/12/17 13:53 Lasix - PO 40 mg BID@0600,1400 [facility] Administration Piperacillin Sod/Tazobactam 100 mls @ 200 mls/hr 02/09/17 20:00 02/12/17 09: 00 Sod 3.375 gm/ Dextrose IVPB 200 mls/hr Q8H-IV [facility] Administration Lactobacillus Acidophilus 1 tab 02/09/17 10:00 02/12/17 09:00 Bacid - PO 1 tab DAILY [facility] Administration Lactulose 30 gm 02/09/17 10:00 02/12/17 13:53 Cephulac (Oral Use) PO 30 gm QID [facility] Administration Lorazepam 2 mg 02/10/17 17:29 02/12/17 13:53 Ativan - PO 2 mg TID PRN Administration ANXIETY Morphine Sulfate 2 mg 02/12/17 15:40 Morphine Injection - IVPUSH Q4H PRN PAIN Pantoprazole Sodium 40 mg 02/09/17 10:00 02/12/17 09:00 Protonix - PO 40 mg DAILY [facility] Administration Potassium Chloride 20 meq 02/11/17 14:00 02/12/17 09:00 K-Dur - PO 20 meq DAILY [facility] Administration Spironolactone 75 mg 02/09/17 10:00 02/12/17 09:00 Aldactone - PO 75 mg BID [facility] Administration Tamsulosin HCl 0.4 mg 02/09/17 22:00 02/11/17 22:21 Flomax - PO 0.4 mg HS [facility] Administration ASSESSMENT/PLAN: 46M with PMH of of Hep C, cirrhosis, ascites, esophageal varices w/ bleeding ( banding on 11/2016), hx of etoh abuse, s/p small bowel resection, presents with worsening abdominal distension and pain, admitted for severe sepsis. # severe sepsis 2/2 bacteremia and UTI - blood culture (+) for Strep Agalactiae Group B - Day 4 of IV Zosyn - ID (Dr. Beebe) recs appreciated: if repeat cultures (-) and if Lumbar MRI ( -), then will switch to po abx - urine culture (+) for Klebsiella - repeat blood culture 02/01/17 (-) x 24 hrs - pt consistently c/o severe pain, though appears comfortable. Concern that morphine can form habits addressed, and morphine reduced to 2mg IVpush q4hr prn. Pt encouraged to get OOB to chair. # low back pain - f/u lumbar MRI to assess for osteomyelitis and discitis - morphine prn for pain control - continue ativan prn for anxiety # thrombocytopenia - likely 2/2 liver disease - trending up - monitor for overt signs of bleeding - hold heparin in setting of thrombocytopenia # ascites - likely 2/2 liver disease - continue Spironolactone and Lasix - low Na+ diet - continue Lactulose - large volume therapeutic paracentesis once medically optimized # Right LE chronic vascular ulcer - f/u with Vascular Surgeon (Dr. Garcia) for outpt wound care # polysubstance abuse - continue home folic acid - monitor for s/s of withdrawal # esophageal varices - hbg stable - continue Nadolol # hypomagnesemia - repleted with Mag Ox 400mg po # FEN - Fluids: po - Electrolytes: continue to monitor - Nutrition: low sodium diet # Prophylaxis - DVT ppx with phillip SCDs, hold pharmacologic ppx 2/2 thrombocytopenia - GI ppx with Protonix Visit type - Emergency Visit Emergency Visit: Yes ED Registration Date: 02/08/17 Care time: The patient presented to the Emergency Department on the above date and was hospitalized for further evaluation of their emergent condition. - New Patient This patient is new to me today: No - Critical Care Critical Care patient: No
[2017-02-12] MEDS: TAMSULOSIN HCL 0.4 MG CAP.ER.24H (FP) PO SCH (22:50)
[2017-02-12] MEDS: ACETAMINOPHEN 325 MG TABLET (FP) PO PRN (23:05)
[2017-02-13] MEDS: PIPERACILLIN/TAZOB 3.375 GM 3.375 GM in DEXTROSE 5%-WATER - 100 ML IVPB SCH ×5 (01:24→18:36)
[2017-02-13] MEDS: LORazepam 1 MG TABLET PO PRN ×2 (01:24→22:33)
[2017-02-13] MEDS: morphine CARPU-JECT 10 MG/1 ML DISP.SYRIN IVPUSH PRN ×5 (02:28→19:55)
[2017-02-13] MEDS: FUROSEMIDE 40 MG TABLET (FP) PO SCH ×2 (06:07→14:51)
[2017-02-13 09:11] LABS: INR 1.61 (0.82-1.09); PROTHROMBIN TIME (PATIENT) 18.2 SEC (9.98-11.88)
[2017-02-13 09:25] LABS: ANION GAP 8 (8-16); BLOOD UREA NITROGEN 7 mg/dL (7-18); CALCIUM 7.6 mg/dL (8.5-10.1); CHLORIDE 100 mmol/L (98-107); CO2 28 mmol/L (21-32); CREATININE 0.4 mg/dL (0.7-1.3); GLUCOSE,RANDOM 91 mg/dL (74-106); MAGNESIUM 1.8 mg/dL (1.8-2.4); POTASSIUM 3.8 mmol/L (3.5-5.1); SODIUM 136 mmol/L (136-145)
[2017-02-13] MEDS ORDERED: PT OWN MED DRAWER 7, Y5N ONE ×3 (10:53→18:31)
[2017-02-13] MEDS: LACTOBACILLUS ACIDOPHILUS 1 EACH TAB (FP) PO SCH (10:54)
[2017-02-13] MEDS: FERROUS SO4 325 MG TABLET (FP) PO SCH (10:54)
[2017-02-13] MEDS: LACTULOSE 20 GM/30 ML UDC (FOR ORAL USE ONLY) PO SCH ×4 (10:54→22:33)
[2017-02-13] MEDS: SPIRONOLACTONE 25 MG TABLET (FP) PO SCH ×2 (10:54→22:33)
[2017-02-13] MEDS: PANTOPRAZOLE 40 MG TABLET (FP) PO SCH (10:54)
[2017-02-13] MEDS: POTASSIUM CHLORIDE TABS 20 MEQ TABLET.ER (FP) PO SCH (10:54)
[2017-02-13] MEDS: FOLIC ACID 1 MG TABLET (FP) PO SCH (10:54)
--- NOTE | 2017-02-13 13:21 | PN ---
Progress Note (short form) - Note Progress Note: pt was sleeping comfortable upon entering the room. did not respond to verbal stimuli. easily arrousable. as soon as pt was awaked he started screaming how severe his back pain is. pain is so bad he even experiences while he is sleeping. denies CP or SOB Current Medications Generic Name Dose Route Start Last Admin Trade Name Freq PRN Reason Stop Dose Admin Acetaminophen 650 mg 02/08/17 21:52 02/12/17 23:05 Tylenol - PO 650 mg Q6H PRN Administration FEVER OR PAIN Ferrous Sulfate 325 mg 02/09/17 10:00 02/13/17 10:54 Feosol - PO 325 mg DAILY [facility] Administration Folic Acid 1 mg 02/09/17 10:00 02/13/17 10:54 Folic Acid - PO 1 mg DAILY [facility] Administration Furosemide 40 mg 02/09/17 06:00 02/13/17 06:07 Lasix - PO 40 mg BID@0600,1400 [facility] Administration Piperacillin Sod/Tazobactam 100 mls @ 200 mls/hr 02/09/17 20:00 02/13/17 11: 13 Sod 3.375 gm/ Dextrose IVPB 200 mls/hr Q8H-IV [facility] Administration Lactobacillus Acidophilus 1 tab 02/09/17 10:00 02/13/17 10:54 Bacid - PO 1 tab DAILY [facility] Administration Lactulose 30 gm 02/09/17 10:00 02/13/17 10:54 Cephulac (Oral Use) PO 30 gm QID [facility] Administration Lorazepam 2 mg 02/10/17 17:29 02/13/17 01:24 Ativan - PO 2 mg TID PRN Administration ANXIETY Morphine Sulfate 2 mg 02/12/17 15:40 02/13/17 11:08 Morphine Injection - IVPUSH 2 mg Q4H PRN Administration PAIN Pantoprazole Sodium 40 mg 02/09/17 10:00 02/13/17 10:54 Protonix - PO 40 mg DAILY [facility] Administration Potassium Chloride 20 meq 02/11/17 14:00 02/13/17 10:54 K-Dur - PO 20 meq DAILY [facility] Administration Spironolactone 75 mg 02/09/17 10:00 02/13/17 10:54 Aldactone - PO 75 mg BID [facility] Administration Tamsulosin HCl 0.4 mg 02/09/17 22:00 02/12/17 22:50 Flomax - PO 0.4 mg HS [facility] Administration Last Vital Signs Temp Pulse Resp BP Pulse Ox 98.5 F 98 H 20 110/70 98 02/13/17 10:41 02/13/17 10:41 02/13/17 10:41 02/13/17 10:41 02/12/17 21:00 General NAD Abdomen soft +distended. not tender refuses to move so back can be examined CBCD WBC 8.3 K/mm3 (4.0-10.0) 02/11/17 07:30 RBC 3.75 M/mm3 (4.00-5.60) L 02/11/17 07:30 Hgb 9.5 GM/dL (11.7-16.9) L 02/11/17 07:30 Hct 29.7 % (35.4-49) L 02/11/17 07:30 MCV 79.1 fl (80-96) L 02/11/17 07:30 MCHC 32.1 g/dl (32.0-35.9) 02/11/17 07:30 RDW 22.4 % (11.9-15.9) H 02/11/17 07:30 Plt Count 88 K/MM3 (134-434) L 02/11/17 07:30 MPV 8.3 fl (7.5-11.1) 02/11/17 07:30 CMP Sodium 136 mmol/L (136-145) 02/13/17 08:25 Potassium 3.8 mmol/L (3.5-5.1) 02/13/17 08:25 Chloride 100 mmol/L (98-107) 02/13/17 08:25 Carbon Dioxide 28 mmol/L (21-32) 02/13/17 08:25 Anion Gap 8 (8-16) 02/13/17 08:25 BUN 7 mg/dL (7-18) D 02/13/17 08:25 Creatinine 0.4 mg/dL (0.7-1.3) L 02/13/17 08:25 Creat Clearance w eGFR > 60 (>60) 02/10/17 08:11 Calcium 7.6 mg/dL (8.5-10.1) L 02/13/17 08:25 Total Bilirubin 1.6 mg/dL (0.2-1.0) H D 02/10/17 08:11 AST 39 U/L (15-37) H D 02/10/17 08:11 ALT 32 U/L (12-78) 02/10/17 08:11 Alkaline Phosphatase 152 U/L (45-117) H 02/10/17 08:11 Total Protein 5.9 g/dl (6.4-8.2) L 02/10/17 08:11 Albumin 1.8 g/dl (3.4-5.0) L 02/10/17 08:11 ASSESSMENT AND PLAN: 46yo M with PMH Hepatitis C, alcohol abuse, cirrhosis, ascites, esophageal varices, umbilical hernia, s/p small bowel resection, admitted to the hospital for severe sepsis. 1. Severe sepsis due to GBS bacteremia- afebrile. lactic acidosis resolved. continues to have back pain. MRI negative for discitis or OM. on Zosyn day 5. can likely d/c and switch to po. repeat BCx negative. will d/w ID 2. Kelbsiella UTI- on zosyn. 3. Low back pain-concern for OM and discitis.MRI showing small L4-L5 L5-S1 disc herniation which may be cause of pain. informed will not adjust his pain medications as he is always sleeping throughout the day. start lidoderm patch to back. will not adjust morphine due to sedating effects as he is sleeping all day and does not appear to be in pain. as per RN request pain meds and is fast asleep by the time they return with medication. will need PT assessment. may benefit from [facility] 4. Hypokalmia- resolved. d/c potassium 5. hypomagnesemi- resolved 6. HCV 7. thrombocytopenia- due to cirrhosis. no active bleeding. does not require platelet tranfusion as no planned procedures at this time 8. ETOH cirrhosis- consider large volume paracentesis once medically optimized as not emergent. cont lactulose, spirolactone, lasix 9. Esophageal varices- no bleeding noted. Hgb at baseline. cont nadolol 10. DVT ppx- will stop heparin sq in setting of thrombocytopenia. on SCD 11. can likely be d/c tomorrow pending PT assessment. not available today due to holiday. agreeable to [facility] placement Visit type - Emergency Visit Emergency Visit: Yes ED Registration Date: 02/08/17 Care time: The patient presented to the Emergency Department on the above date and was hospitalized for further evaluation of their emergent condition. - New Patient This patient is new to me today: No - Critical Care Critical Care patient: No - Discharge Referral Referred to [facility] Med P.C.: No
--- NOTE | 2017-02-13 15:22 | PN ---
Progress Note, Physician History of Present Illness: doing well pain main issues back pain - Current Medication List Current Medications: Active Medications Acetaminophen (Tylenol -) 650 mg PO Q6H PRN PRN Reason: FEVER OR PAIN Last Admin: 02/12/17 23:05 Dose: 650 mg Ferrous Sulfate (Feosol -) 325 mg PO DAILY [facility] Last Admin: 02/13/17 10:54 Dose: 325 mg Folic Acid (Folic Acid -) 1 mg PO DAILY [facility] Last Admin: 02/13/17 10:54 Dose: 1 mg Furosemide (Lasix -) 40 mg PO BID@0600,1400 [facility] Last Admin: 02/13/17 14:51 Dose: 40 mg Piperacillin Sod/Tazobactam (Sod 3.375 gm/ Dextrose) 100 mls @ 200 mls/hr IVPB Q8H-IV [facility] Last Admin: 02/13/17 11:13 Dose: 200 mls/hr Lactobacillus Acidophilus (Bacid -) 1 tab PO DAILY [facility] Last Admin: 02/13/17 10:54 Dose: 1 tab Lactulose (Cephulac (Oral Use)) 30 gm PO QID [facility] Last Admin: 02/13/17 14:51 Dose: 30 gm Lidocaine (Lidoderm Patch -) 1 patch TP DAILY [facility] Lorazepam (Ativan -) 2 mg PO TID PRN PRN Reason: ANXIETY Last Admin: 02/13/17 01:24 Dose: 2 mg Miscellaneous (Lidoderm Patch Removal) 1 each [facility] DAILY@2200 [facility] Morphine Sulfate (Morphine Injection -) 2 mg IVPUSH Q4H PRN PRN Reason: PAIN Last Admin: 02/13/17 11:08 Dose: 2 mg Pantoprazole Sodium (Protonix -) 40 mg PO DAILY [facility] Last Admin: 02/13/17 10:54 Dose: 40 mg Potassium Chloride (K-Dur -) 20 meq PO DAILY [facility] Last Admin: 02/13/17 10:54 Dose: 20 meq Spironolactone (Aldactone -) 75 mg PO BID [facility] Last Admin: 02/13/17 10:54 Dose: 75 mg Tamsulosin HCl (Flomax -) 0.4 mg PO HS [facility] Last Admin: 02/12/17 22:50 Dose: 0.4 mg - Objective Vital Signs: Vital Signs Temperature 98.5 F 02/13/17 10:41 Pulse Rate 100 H 02/13/17 14:41 Respiratory Rate 20 02/13/17 14:41 Blood Pressure 102/60 02/13/17 14:41 O2 Sat by Pulse Oximetry (%) 98 02/12/17 21:00 Constitutional: Yes: Calm, Mild Distress Neck: Yes: Supple Cardiovascular: Yes: Regular Rate and Rhythm Gastrointestinal: Yes: Normal Bowel Sounds, Soft, Ascites Musculoskeletal: Yes: Other Extremities: Yes: Other Wound/Incision: Yes: Dressing Removed Neurological: Yes: Alert, Oriented Labs: CBC, BMP 02/11/17 07:30 02/13/17 08:25 INR, PTT INR 1.61 (0.82-1.09) H 02/13/17 08:25 - ....Imaging MRI: Image Reviewed (report awaited) Assessment/Plan sepsis bacteremia ascites chr leg wound fever uti plan if mri negative will stop abx patient stable rest continue current mgmt as per primary team
[2017-02-13] MEDS: LIDOCAINE 5% TOPICAL PATCH TP SCH (15:37)
[2017-02-13] MEDS: ACETAMINOPHEN 325 MG TABLET (FP) PO PRN (19:59)
[2017-02-13] MEDS: TAMSULOSIN HCL 0.4 MG CAP.ER.24H (FP) PO SCH (22:33)
[2017-02-13] MEDS: LIDOCAINE PATCH REMOVAL MC SCH (22:34)
[2017-02-14] MEDS: morphine CARPU-JECT 10 MG/1 ML DISP.SYRIN IVPUSH PRN ×5 (01:49→22:34)
[2017-02-14] MEDS: PIPERACILLIN/TAZOB 3.375 GM 3.375 GM in DEXTROSE 5%-WATER - 100 ML IVPB SCH ×2 (01:49→10:27)
[2017-02-14] MEDS: FUROSEMIDE 40 MG TABLET (FP) PO SCH ×2 (05:56→15:08)
[2017-02-14] MEDS ORDERED: PT OWN MED DRAWER 7, Y5N ONE (09:58)
[2017-02-14] MEDS: LACTOBACILLUS ACIDOPHILUS 1 EACH TAB (FP) PO SCH (10:27)
[2017-02-14] MEDS: POTASSIUM CHLORIDE TABS 20 MEQ TABLET.ER (FP) PO SCH (10:27)
[2017-02-14] MEDS: FOLIC ACID 1 MG TABLET (FP) PO SCH (10:27)
[2017-02-14] MEDS: SPIRONOLACTONE 25 MG TABLET (FP) PO SCH ×2 (10:27→21:37)
[2017-02-14] MEDS: FERROUS SO4 325 MG TABLET (FP) PO SCH (10:27)
[2017-02-14] MEDS: PANTOPRAZOLE 40 MG TABLET (FP) PO SCH (10:28)
[2017-02-14] MEDS: LIDOCAINE 5% TOPICAL PATCH TP SCH (10:28)
[2017-02-14] MEDS: LACTULOSE 20 GM/30 ML UDC (FOR ORAL USE ONLY) PO SCH ×4 (10:31→21:38)
[2017-02-14 12:30] LABS: HEMATOCRIT 31.4 % (35.4-49); HEMOGLOBIN 9.9 GM/dL (11.7-16.9); MCH 25.4 pg (25.7-33.7); MCHC 31.7 g/dl (32.0-35.9); MEAN CELL VOLUME 80.2 fl (80-96); MEAN PLT VOLUME 7.1 fl (7.5-11.1); PLATELET COUNT 109 K/MM3 (134-434); RBC 3.91 M/mm3 (4.00-5.60); RDW 21.6 % (11.9-15.9); WHITE BLOOD COUNT 5.4 K/mm3 (4.0-10.0)
[2017-02-14 12:54] LABS: ALBUMIN 1.8 g/dl (3.4-5.0); ANION GAP 6 (8-16); BLOOD UREA NITROGEN 6 mg/dL (7-18); CALCIUM 7.7 mg/dL (8.5-10.1); CHLORIDE 100 mmol/L (98-107); CO2 28 mmol/L (21-32); CREATININE 0.5 mg/dL (0.7-1.3); GLUCOSE,RANDOM 98 mg/dL (74-106); POTASSIUM 3.6 mmol/L (3.5-5.1); SGOT/AST 66 U/L (15-37); SGPT/ALT 38 U/L (12-78); SODIUM 134 mmol/L (136-145); TOT PROT 6.6 g/dl (6.4-8.2)
[2017-02-14 12:55] LABS: ALK PHOS 275 U/L (45-117)
[2017-02-14 13:08] LABS: INR 1.59 (0.82-1.09)
--- NOTE | 2017-02-14 13:13 | PN ---
Progress Note, Physician History of Present Illness: back pain otherwise stable anxious - Current Medication List Current Medications: Active Medications Acetaminophen (Tylenol -) 650 mg PO Q6H PRN PRN Reason: FEVER OR PAIN Last Admin: 02/13/17 19:59 Dose: 650 mg Ferrous Sulfate (Feosol -) 325 mg PO DAILY [facility] Last Admin: 02/14/17 10:27 Dose: 325 mg Folic Acid (Folic Acid -) 1 mg PO DAILY [facility] Last Admin: 02/14/17 10:27 Dose: 1 mg Furosemide (Lasix -) 40 mg PO BID@0600,1400 [facility] Last Admin: 02/14/17 05:56 Dose: 40 mg Piperacillin Sod/Tazobactam (Sod 3.375 gm/ Dextrose) 100 mls @ 200 mls/hr IVPB Q8H-IV [facility] Last Admin: 02/14/17 10:27 Dose: 200 mls/hr Lactobacillus Acidophilus (Bacid -) 1 tab PO DAILY [facility] Last Admin: 02/14/17 10:27 Dose: 1 tab Lactulose (Cephulac (Oral Use)) 30 gm PO QID [facility] Last Admin: 02/14/17 10:31 Dose: 30 gm Lidocaine (Lidoderm Patch -) 1 patch TP DAILY [facility] Last Admin: 02/14/17 10:28 Dose: 1 patch Miscellaneous (Lidoderm Patch Removal) 1 each MC DAILY@2200 [facility] Last Admin: 02/13/17 22:34 Dose: 1 each Morphine Sulfate (Morphine Injection -) 2 mg IVPUSH Q4H PRN PRN Reason: PAIN Last Admin: 02/14/17 10:19 Dose: 2 mg Pantoprazole Sodium (Protonix -) 40 mg PO DAILY [facility] Last Admin: 02/14/17 10:28 Dose: 40 mg Potassium Chloride (K-Dur -) 20 meq PO DAILY [facility] Last Admin: 02/14/17 10:27 Dose: 20 meq Spironolactone (Aldactone -) 75 mg PO BID [facility] Last Admin: 02/14/17 10:27 Dose: 75 mg Tamsulosin HCl (Flomax -) 0.4 mg PO HS [facility] Last Admin: 02/13/17 22:33 Dose: 0.4 mg - Objective Vital Signs: Vital Signs Temperature 99 F 02/14/17 08:57 Pulse Rate 90 02/14/17 10:14 Respiratory Rate 20 02/14/17 10:14 Blood Pressure 118/67 02/14/17 10:14 O2 Sat by Pulse Oximetry (%) 96 02/13/17 21:00 Constitutional: Yes: No Distress, Calm Cardiovascular: Yes: Regular Rate and Rhythm Respiratory: Yes: Regular, CTA Bilaterally Gastrointestinal: Yes: Normal Bowel Sounds, Soft Musculoskeletal: Yes: WNL Extremities: Yes: Other Wound/Incision: Yes: Dressing Removed Neurological: Yes: Alert, Oriented Labs: CBC, BMP 02/14/17 12:00 02/14/17 12:00 INR, PTT INR 1.59 (0.82-1.09) H 02/14/17 12:00 - ....Imaging MRI: Report Reviewed, Image Reviewed Assessment/Plan sepsis bacteremia ascites chr leg wound fever uti all cx negative all imaging studies negative plan will stop all abx and watch wound care pain mgmt rest as per primary team
--- NOTE | 2017-02-14 19:40 | PN ---
Teaching Attending Note Name of Resident: Marian Monsivais ATTENDING PHYSICIAN STATEMENT time of evaluation: 11;46 AM I saw and evaluated the patient. I reviewed the resident's note and discussed the case with the resident. I agree with the resident's findings and plan as documented. SUBJECTIVE: patient seen and examined, no complaints currently, tolerating diet well. OBJECTIVE: Vital Signs Period Temp Pulse Resp BP Sys/Choi Pulse Ox Last 24 Hr 98.7 F-100.4 F 70-98 20-22 104-118/64-69 96 Intake & Output 02/11/17 02/12/17 02/13/17 02/14/17 23:59 23:59 23:59 23:59 Intake Total 880 1530 2060 1165 Balance 880 1530 2060 1165 general: lying in bed in no acute distress CVS;S1s2 regular Chest: decreased breath sounds right base Abdomen: soft, distended, non tender throughout Home Medication List Medication Instructions Recorded Confirmed Type Lactobacillus Combination No.4 1 each PO DAILY 02/08/17 02/08/17 History [Probiotic] Pantoprazole Sodium [Protonix] 40 mg PO DAILY 02/08/17 02/08/17 History Tamsulosin HCl [Flomax] 0.4 mg PO HS 02/08/17 02/08/17 History Albuterol Sulfate Inhaler - 2 puff Q4H PRN 02/09/17 02/09/17 History [Ventolin HFA Inhaler -] Fluticasone/Salmeterol [Advair Hfa 2 puff BID 02/09/17 02/09/17 History 230-21 Mcg Inhaler] Active Medications Generic Name Dose Route Start Last Admin Trade Name Freq PRN Reason Stop Dose Admin Acetaminophen 650 mg 02/08/17 21:52 02/13/17 19:59 Tylenol - PO 650 mg Q6H PRN Administration FEVER OR PAIN Ferrous Sulfate 325 mg 02/09/17 10:00 02/14/17 10:27 Feosol - PO 325 mg DAILY KENDRICK Administration Folic Acid 1 mg 02/09/17 10:00 02/14/17 10:27 Folic Acid - PO 1 mg DAILY KENDRICK Administration Furosemide 40 mg 02/09/17 06:00 02/14/17 15:08 Lasix - PO 40 mg BID@0600,1400 KENDRICK Administration Lactobacillus Acidophilus 1 tab 02/09/17 10:00 02/14/17 10:27 Bacid - PO 1 tab DAILY KENDRICK Administration Lactulose 30 gm 02/09/17 10:00 02/14/17 18:03 Cephulac (Oral Use) PO 30 gm QID KENDRICK Administration Lidocaine 1 patch 02/13/17 15:15 02/14/17 10:28 Lidoderm Patch - TP 1 patch DAILY KENDRICK Administration Miscellaneous 1 each 02/13/17 22:00 02/13/17 22:34 Lidoderm Patch Removal MC 1 each DAILY@2200 KENDRICK Administration Morphine Sulfate 2 mg 02/12/17 15:40 02/14/17 18:01 Morphine Injection - IVPUSH 2 mg Q4H PRN Administration PAIN Pantoprazole Sodium 40 mg 02/09/17 10:00 02/14/17 10:28 Protonix - PO 40 mg DAILY KENDRICK Administration Potassium Chloride 20 meq 02/11/17 14:00 02/14/17 10:27 K-Dur - PO 20 meq DAILY KENDRICK Administration Spironolactone 75 mg 02/09/17 10:00 02/14/17 10:27 Aldactone - PO 75 mg BID KENDRICK Administration Tamsulosin HCl 0.4 mg 02/09/17 22:00 02/13/17 22:33 Flomax - PO 0.4 mg HS KENDRICK Administration Laboratory Results - last 24 hr 02/14/17 02/14/17 02/14/17 12:00 12:00 12:00 WBC 5.4 D RBC 3.91 L Hgb 9.9 L Hct 31.4 L MCV 80.2 MCH 25.4 L MCHC 31.7 L RDW 21.6 H Plt Count 109 L D MPV 7.1 L D PT with INR 18.00 H INR 1.59 H Sodium 134 L Potassium 3.6 Chloride 100 Carbon Dioxide 28 Anion Gap 6 L BUN 6 L Creatinine 0.5 L D Creat Clearance w eGFR > 60 Random Glucose 98 Calcium 7.7 L Total Bilirubin 2.0 H D AST 66 H D ALT 38 Alkaline Phosphatase 275 H D Total Protein 6.6 Albumin 1.8 L Microbiology 02/11/17 15:05 Blood - Peripheral Venous Blood Culture - Preliminary NO GROWTH OBTAINED AFTER 72 HOURS, INCUBATION TO CONTINUE FOR 2 DAYS. 02/11/17 15:00 Blood - Peripheral Venous Blood Culture - Preliminary NO GROWTH OBTAINED AFTER 72 HOURS, INCUBATION TO CONTINUE FOR 2 DAYS. 02/08/17 14:49 Blood - Peripheral Venous Blood Culture - Preliminary Strep Agalactiae Group B 02/08/17 15:33 Paracentesis Gram Stain - Final 02/08/17 15:33 Paracentesis Body Fluid Culture - Final NO GROWTH OF AEROBIC ORGANISMS AFTER 48 HOURS INCUBATION 02/08/17 15:33 Paracentesis Anaerobic Culture - Final NO ANAEROBES WERE ISOLATED 02/08/17 16:10 Urine - Urine Clean Catch Urine Culture - Final Klebsiella Pneumoniae 02/08/17 14:49 Blood - Peripheral Venous Blood Culture - Final Strep Agalactiae Group B ASSESSMENT AND PLAN: 46yo M with PMH Hepatitis C, alcohol abuse, cirrhosis, ascites, esophageal varices, umbilical hernia, s/p small bowel resection, admitted to the hospital for severe sepsis. 1. Severe sepsis due to GBS bacteremia- afebrile. lactic acidosis resolved. continues to have back pain. MRI negative for discitis or OM. on Zosyn day 7.repeat blood cultures neg, Antibiotics d/c ed by ID. 2. Kelbsiella UTI- s/p 7 days of zosyn 3. Low back pain-concern for OM and discitis.MRI showing small L4-L5 L5-S1 disc herniation which may be cause of pain.no concerns on exam, Lidoderm patch, d/c morphine in 24 hours. PT eval. 4. Hypokalmia- resolved. 5. hypomagnesemi- resolved 6. HCV 7. thrombocytopenia- due to cirrhosis. no active bleeding. does not require platelet tranfusion as no planned procedures at this time 8. ETOH cirrhosis- consider large volume paracentesis once medically optimized as not emergent. cont lactulose, spirolactone, lasix 9. Esophageal varices- no bleeding noted. Hgb at baseline. cont nadolol 10. Ascitis - improved with diuretics. Still significant. IR guided paracentesis today 11. DVT ppx- will stop heparin sq in setting of thrombocytopenia. on SCD 12. PT eval noted, followu p repeat eval and dispo planning tomorrow.
--- NOTE | 2017-02-14 20:44 | PN ---
Physical Exam: SUBJECTIVE: Patient seen and examined. Pt reports abdominal pain and distention have improved. No fevers, chills. OBJECTIVE: Vital Signs Period Temp Pulse Resp BP Sys/Choi Pulse Ox Last 24 Hr 98.7 F-100.4 F 70-98 20-22 104-118/64-69 96 GENERAL: The patient is awake, alert, and fully oriented, in no acute distress. LUNGS: Breath sounds equal, clear to auscultation bilaterally, no wheezes, no crackles, no accessory muscle use. HEART: Regular rate and rhythm, +S1/S2. ABDOMEN: Soft, nontender, +distended, +fluid wave. EXTREMITIES: Warm, well-perfused, no edema. Right LE vascular ulcer with granulation tissue at base. SKIN: Warm, dry, normal turgor, no rashes Laboratory Results - last 24 hr 02/14/17 02/14/17 02/14/17 12:00 12:00 12:00 WBC 5.4 D RBC 3.91 L Hgb 9.9 L Hct 31.4 L MCV 80.2 MCH 25.4 L MCHC 31.7 L RDW 21.6 H Plt Count 109 L D MPV 7.1 L D PT with INR 18.00 H INR 1.59 H Sodium 134 L Potassium 3.6 Chloride 100 Carbon Dioxide 28 Anion Gap 6 L BUN 6 L Creatinine 0.5 L D Creat Clearance w eGFR > 60 Random Glucose 98 Calcium 7.7 L Total Bilirubin 2.0 H D AST 66 H D ALT 38 Alkaline Phosphatase 275 H D Total Protein 6.6 Albumin 1.8 L Active Medications Generic Name Dose Route Start Last Admin Trade Name Freq PRN Reason Stop Dose Admin Acetaminophen 650 mg 02/08/17 21:52 02/13/17 19:59 Tylenol - PO 650 mg Q6H PRN Administration FEVER OR PAIN Ferrous Sulfate 325 mg 02/09/17 10:00 02/14/17 10:27 Feosol - PO 325 mg DAILY KENDRICK Administration Folic Acid 1 mg 02/09/17 10:00 02/14/17 10:27 Folic Acid - PO 1 mg DAILY KENDRICK Administration Furosemide 40 mg 02/09/17 06:00 02/14/17 15:08 Lasix - PO 40 mg BID@0600,1400 KENDRICK Administration Lactobacillus Acidophilus 1 tab 02/09/17 10:00 02/14/17 10:27 Bacid - PO 1 tab DAILY KENDRICK Administration Lactulose 30 gm 02/09/17 10:00 02/14/17 18:03 Cephulac (Oral Use) PO 30 gm QID KENDRICK Administration Lidocaine 1 patch 02/13/17 15:15 02/14/17 10:28 Lidoderm Patch - TP 1 patch DAILY KENDRICK Administration Miscellaneous 1 each 02/13/17 22:00 02/13/17 22:34 Lidoderm Patch Removal MC 1 each DAILY@2200 KENDRICK Administration Morphine Sulfate 2 mg 02/12/17 15:40 02/14/17 18:01 Morphine Injection - IVPUSH 2 mg Q4H PRN Administration PAIN Pantoprazole Sodium 40 mg 02/09/17 10:00 02/14/17 10:28 Protonix - PO 40 mg DAILY KENDRICK Administration Potassium Chloride 20 meq 02/11/17 14:00 02/14/17 10:27 K-Dur - PO 20 meq DAILY KENDRICK Administration Spironolactone 75 mg 02/09/17 10:00 02/14/17 10:27 Aldactone - PO 75 mg BID KENDRICK Administration Tamsulosin HCl 0.4 mg 02/09/17 22:00 02/13/17 22:33 Flomax - PO 0.4 mg HS KENDRICK Administration ASSESSMENT/PLAN: 46M with PMH of of Hep C, cirrhosis, ascites, esophageal varices w/ bleeding ( banding on 11/2016), hx of etoh abuse, s/p small bowel resection, presents with worsening abdominal distension and pain, admitted for severe sepsis. # severe sepsis 2/2 bacteremia and UTI - ID (Dr. Beebe) recs appreciated: antibiotics D/Jose - repeat blood culture 02/01/17 (-) x 72 hrs # low back pain - Lumbar MRI (-) for osteomyelitis and discitis. MRI does show small L4-L5 and L5-S1 disc herniation which may be cause of pain, although no concerns on exam. - pain control with Lidoderm patch and Morphine prn # thrombocytopenia - likely 2/2 liver disease - trending up - monitor for overt signs of bleeding - hold heparin in setting of thrombocytopenia # ascites - likely 2/2 liver disease - continue Spironolactone and Lasix - low Na+ diet - continue Lactulose - s/p therapeutic paracentesis today # Right LE chronic vascular ulcer - f/u with Vascular Surgeon (Dr. Garcia) for outpt wound care # polysubstance abuse - continue home folic acid - monitor for s/s of withdrawal # esophageal varices - hbg stable - continue Nadolol # FEN - Fluids: po - Electrolytes: continue to monitor - Nutrition: low sodium diet # Prophylaxis - DVT ppx with phillip SCDs, hold pharmacologic ppx 2/2 thrombocytopenia - GI ppx with Protonix Visit type - Emergency Visit Emergency Visit: Yes ED Registration Date: 02/08/17 Care time: The patient presented to the Emergency Department on the above date and was hospitalized for further evaluation of their emergent condition. - New Patient This patient is new to me today: No - Critical Care Critical Care patient: No
[2017-02-14] MEDS: ACETAMINOPHEN 325 MG TABLET (FP) PO PRN (21:37)
[2017-02-14] MEDS: TAMSULOSIN HCL 0.4 MG CAP.ER.24H (FP) PO SCH (21:38)
[2017-02-14] MEDS: LIDOCAINE PATCH REMOVAL MC SCH (21:40)
[2017-02-15] MEDS: morphine CARPU-JECT 10 MG/1 ML DISP.SYRIN IVPUSH PRN (03:49)
[2017-02-15] MEDS: FUROSEMIDE 40 MG TABLET (FP) PO SCH ×2 (06:14→15:43)
[2017-02-15] MEDS: ACETAMINOPHEN 325 MG TABLET (FP) PO PRN ×2 (07:18→19:04)
[2017-02-15 09:30] LABS: HEMATOCRIT 27.7 % (35.4-49); HEMOGLOBIN 8.9 GM/dL (11.7-16.9); MCH 25.5 pg (25.7-33.7); MCHC 32.1 g/dl (32.0-35.9); MEAN CELL VOLUME 79.6 fl (80-96); MEAN PLT VOLUME 7.3 fl (7.5-11.1); PLATELET COUNT 108 K/MM3 (134-434); RBC 3.47 M/mm3 (4.00-5.60); RDW 21.5 % (11.9-15.9); WHITE BLOOD COUNT 4.9 K/mm3 (4.0-10.0)
[2017-02-15 09:40] LABS: CHLORIDE 105 mmol/L (98-107); POTASSIUM 3.5 mmol/L (3.5-5.1); SODIUM 138 mmol/L (136-145)
[2017-02-15 09:52] LABS: ALBUMIN 1.6 g/dl (3.4-5.0); ALK PHOS 258 U/L (45-117); ANION GAP 6 (8-16); BILIRUBIN,TOTAL 1.4 mg/dL (0.2-1.0); BLOOD UREA NITROGEN 8 mg/dL (7-18); CALCIUM 7.1 mg/dL (8.5-10.1); CO2 27 mmol/L (21-32); CREATININE 0.5 mg/dL (0.7-1.3); GLUCOSE,RANDOM 91 mg/dL (74-106); SGOT/AST 54 U/L (15-37); SGPT/ALT 32 U/L (12-78); TOT PROT 5.7 g/dl (6.4-8.2)
[2017-02-15] MEDS: LACTULOSE 20 GM/30 ML UDC (FOR ORAL USE ONLY) PO SCH ×4 (11:24→22:44)
[2017-02-15] MEDS: PANTOPRAZOLE 40 MG TABLET (FP) PO SCH (11:25)
[2017-02-15] MEDS: POTASSIUM CHLORIDE TABS 20 MEQ TABLET.ER (FP) PO SCH (11:25)
[2017-02-15] MEDS: LIDOCAINE 5% TOPICAL PATCH TP SCH (11:25)
[2017-02-15] MEDS: LACTOBACILLUS ACIDOPHILUS 1 EACH TAB (FP) PO SCH (11:25)
[2017-02-15] MEDS: FOLIC ACID 1 MG TABLET (FP) PO SCH (11:26)
[2017-02-15] MEDS: FERROUS SO4 325 MG TABLET (FP) PO SCH (11:26)
[2017-02-15] MEDS: SPIRONOLACTONE 25 MG TABLET (FP) PO SCH ×2 (12:59→22:44)
--- NOTE | 2017-02-15 18:16 | PN ---
Progress Note, Physician History of Present Illness: pain main issues no other issues stable all work up negative now - Current Medication List Current Medications: Active Medications Acetaminophen (Tylenol -) 650 mg PO Q6H PRN PRN Reason: FEVER OR PAIN Last Admin: 02/15/17 07:18 Dose: 650 mg Ferrous Sulfate (Feosol -) 325 mg PO DAILY [facility] Last Admin: 02/15/17 11:26 Dose: 325 mg Folic Acid (Folic Acid -) 1 mg PO DAILY [facility] Last Admin: 02/15/17 11:26 Dose: 1 mg Furosemide (Lasix -) 40 mg PO BID@0600,1400 [facility] Last Admin: 02/15/17 15:43 Dose: Not Given Lactobacillus Acidophilus (Bacid -) 1 tab PO DAILY [facility] Last Admin: 02/15/17 11:25 Dose: 1 tab Lactulose (Cephulac (Oral Use)) 30 gm PO QID [facility] Last Admin: 02/15/17 17:07 Dose: Not Given Lidocaine (Lidoderm Patch -) 1 patch TP DAILY [facility] Last Admin: 02/15/17 11:25 Dose: 1 patch Miscellaneous (Lidoderm Patch Removal) 1 each MC DAILY@2200 [facility] Last Admin: 02/14/17 21:40 Dose: 1 each Pantoprazole Sodium (Protonix -) 40 mg PO DAILY [facility] Last Admin: 02/15/17 11:25 Dose: 40 mg Potassium Chloride (K-Dur -) 20 meq PO DAILY [facility] Last Admin: 02/15/17 11:25 Dose: 20 meq Spironolactone (Aldactone -) 75 mg PO BID [facility] Last Admin: 02/15/17 12:59 Dose: Not Given Tamsulosin HCl (Flomax -) 0.4 mg PO [facility] Last Admin: 02/14/17 21:38 Dose: 0.4 mg - Objective Vital Signs: Vital Signs Temperature 97.6 F 02/15/17 14:21 Pulse Rate 101 H 02/15/17 14:21 Respiratory Rate 20 02/15/17 14:21 Blood Pressure 121/67 02/15/17 14:21 O2 Sat by Pulse Oximetry (%) 95 02/14/17 21:00 Constitutional: Yes: Calm, Mild Distress Cardiovascular: Yes: Regular Rate and Rhythm Respiratory: Yes: Regular, CTA Bilaterally Gastrointestinal: Yes: Normal Bowel Sounds, Soft, Ascites Musculoskeletal: Yes: Other Extremities: Yes: Other Wound/Incision: Yes: Dressing Dry and Intact Neurological: Yes: Alert, Oriented Psychiatric: Yes: Alert Labs: CBC, BMP 02/15/17 06:00 02/15/17 06:00 INR, PTT INR 1.59 (0.82-1.09) H 02/14/17 12:00 Assessment/Plan sepsis bacteremia ascites chr leg wound fever uti all cx negative all imaging studies negative plan stable off of abx wound care pain mgmt rest as per primary team
--- NOTE | 2017-02-15 18:30 | PN ---
Teaching Attending Note Name of Resident: Marian Monsivais ATTENDING PHYSICIAN STATEMENT Time of evaluation: 10:45 AM I saw and evaluated the patient. I reviewed the resident's note and discussed the case with the resident. I agree with the resident's findings and plan as documented. SUBJECTIVE: Patient seen and examined. No abdominal pain or fevers. reports back pain but then asking to leave. OBJECTIVE: Vital Signs Period Temp Pulse Resp BP Sys/Choi Pulse Ox Last 24 Hr 97.6 F-100.6 F 84-101 18-20 104-121/58-67 95-96 Intake & Output 02/12/17 02/13/17 02/14/17 02/15/17 23:59 23:59 23:59 23:59 Intake Total 1530 2060 1165 300 Balance 1530 0 1165 300 Weight 193 lb 12.8 oz 174 lb 9.6 oz General: sitting in bed in no acute distress Abdomen: less distended today, NT, Extremities: no edema Neuro AAOX3, no asterexis Musculoskeletal: no spinal point tenderness Active Medications Generic Name Dose Route Start Last Admin Trade Name Freq PRN Reason Stop Dose Admin Acetaminophen 650 mg 02/08/17 21:52 02/15/17 07:18 Tylenol - PO 650 mg Q6H PRN Administration FEVER OR PAIN Ferrous Sulfate 325 mg 02/09/17 10:00 02/15/17 11:26 Feosol - PO 325 mg DAILY KENDRICK Administration Folic Acid 1 mg 02/09/17 10:00 02/15/17 11:26 Folic Acid - PO 1 mg DAILY KENDRICK Administration Furosemide 40 mg 02/09/17 06:00 02/15/17 15:43 Lasix - PO Not Given BID@0600,1400 KENDRICK Lactobacillus Acidophilus 1 tab 02/09/17 10:00 02/15/17 11:25 Bacid - PO 1 tab DAILY KENDRICK Administration Lactulose 30 gm 02/09/17 10:00 02/15/17 17:07 Cephulac (Oral Use) PO Not Given QID KENDRICK Lidocaine 1 patch 02/13/17 15:15 02/15/17 11:25 Lidoderm Patch - TP 1 patch DAILY KENDRICK Administration Miscellaneous 1 each 02/13/17 22:00 02/14/17 21:40 Lidoderm Patch Removal MC 1 each DAILY@2200 KENDRICK Administration Pantoprazole Sodium 40 mg 02/09/17 10:00 02/15/17 11:25 Protonix - PO 40 mg DAILY KENDRICK Administration Potassium Chloride 20 meq 02/11/17 14:00 02/15/17 11:25 K-Dur - PO 20 meq DAILY KENDRICK Administration Spironolactone 75 mg 02/09/17 10:00 02/15/17 12:59 Aldactone - PO Not Given BID KENDRICK Tamsulosin HCl 0.4 mg 02/09/17 22:00 02/14/17 21:38 Flomax - PO 0.4 mg HS KENDRICK Administration Laboratory Results - last 24 hr 02/15/17 02/15/17 06:00 06:00 WBC 4.9 RBC 3.47 L Hgb 8.9 L D Hct 27.7 L MCV 79.6 L MCH 25.5 L MCHC 32.1 RDW 21.5 H Plt Count 108 L MPV 7.3 L Sodium 138 Potassium 3.5 Chloride 105 Carbon Dioxide 27 Anion Gap 6 L BUN 8 D Creatinine 0.5 L Creat Clearance w eGFR > 60 Random Glucose 91 Calcium 7.1 L Total Bilirubin 1.4 H D AST 54 H ALT 32 Alkaline Phosphatase 258 H Total Protein 5.7 L Albumin 1.6 L Microbiology 02/11/17 15:05 Blood - Peripheral Venous Blood Culture - Preliminary NO GROWTH OBTAINED AFTER 96 HOURS, INCUBATION TO CONTINUE FOR 1 DAYS. 02/11/17 15:00 Blood - Peripheral Venous Blood Culture - Preliminary NO GROWTH OBTAINED AFTER 96 HOURS, INCUBATION TO CONTINUE FOR 1 DAYS. 02/08/17 14:49 Blood - Peripheral Venous Blood Culture - Preliminary Strep Agalactiae Group B 02/08/17 15:33 Paracentesis Gram Stain - Final 02/08/17 15:33 Paracentesis Body Fluid Culture - Final NO GROWTH OF AEROBIC ORGANISMS AFTER 48 HOURS INCUBATION 02/08/17 15:33 Paracentesis Anaerobic Culture - Final NO ANAEROBES WERE ISOLATED 02/08/17 16:10 Urine - Urine Clean Catch Urine Culture - Final Klebsiella Pneumoniae 02/08/17 14:49 Blood - Peripheral Venous Blood Culture - Final Strep Agalactiae Group B ASSESSMENT AND PLAN: 46yo M with PMH Hepatitis C, alcohol abuse, cirrhosis, ascites, esophageal varices, umbilical hernia, s/p small bowel resection, admitted to the hospital for severe sepsis. -Severe sepsis due to KLebsiella UTI/ Also with Strep B Agalactie bacteremia -Low back -Decompensated alcoholic cirrhosis with ascitis, esophageal varices -HCT -Thrombocytopenia, from cirrhoss -Hypokalemia -Hypomagnesemia Plan: lactic acidosis resolved. continues to have back pain. s/p 7 days of zosyn, antibiotics d/kenna after 02/14. No new concerns, monitor for now. .MRI showing small L4-L5 L5-S1 disc herniation which may be cause of pain.no concerns on exam, Lidoderm patch, d/c morphine . PT eval. s/p 3 liters therapeutic paracentesis on 02/14. Continue lasix/aldactone, PPI, KCL supplementation Outpatient GI follow up. D.c in 24 hours pending PT input and disposition arranged.
--- NOTE | 2017-02-15 19:47 | PN ---
Physical Exam: SUBJECTIVE: Patient seen and examined. Pt reports abdominal pain and distention have improved, but c/o back pain. Pt wanting to leave AMA, but then changed his mind. Tmax 100.6 yesterday evening, afebrile all day. Pt s/p therapeutic paracentesis in which 3L was removed per pt. OBJECTIVE: Vital Signs Period Temp Pulse Resp BP Sys/Choi Pulse Ox Last 24 Hr 97.6 F-100.6 F 84-101 18-20 104-121/58-67 95-96 GENERAL: The patient is awake, alert, and fully oriented, in no acute distress. LUNGS: Breath sounds equal, clear to auscultation bilaterally, no wheezes, no crackles, no accessory muscle use. HEART: Regular rate and rhythm, +S1/S2. ABDOMEN: Soft, nontender, less distended today. MS: No spinal point tenderness. EXTREMITIES: Warm, well-perfused, no edema. Right LE vascular ulcer with dressing CDI. SKIN: Warm, dry, normal turgor, no rashes Laboratory Results - last 24 hr 02/15/17 02/15/17 06:00 06:00 WBC 4.9 RBC 3.47 L Hgb 8.9 L D Hct 27.7 L MCV 79.6 L MCH 25.5 L MCHC 32.1 RDW 21.5 H Plt Count 108 L MPV 7.3 L Sodium 138 Potassium 3.5 Chloride 105 Carbon Dioxide 27 Anion Gap 6 L BUN 8 D Creatinine 0.5 L Creat Clearance w eGFR > 60 Random Glucose 91 Calcium 7.1 L Total Bilirubin 1.4 H D AST 54 H ALT 32 Alkaline Phosphatase 258 H Total Protein 5.7 L Albumin 1.6 L Active Medications Generic Name Dose Route Start Last Admin Trade Name Freq PRN Reason Stop Dose Admin Acetaminophen 650 mg 02/08/17 21:52 02/15/17 19:04 Tylenol - PO 650 mg Q6H PRN Administration FEVER OR PAIN Ferrous Sulfate 325 mg 02/09/17 10:00 02/15/17 11:26 Feosol - PO 325 mg DAILY KENDRICK Administration Folic Acid 1 mg 02/09/17 10:00 02/15/17 11:26 Folic Acid - PO 1 mg DAILY KENDRICK Administration Furosemide 40 mg 02/09/17 06:00 02/15/17 15:43 Lasix - PO Not Given BID@0600,1400 KENDRICK Lactobacillus Acidophilus 1 tab 02/09/17 10:00 02/15/17 11:25 Bacid - PO 1 tab DAILY KENDRICK Administration Lactulose 30 gm 02/09/17 10:00 02/15/17 17:07 Cephulac (Oral Use) PO Not Given QID KENDRICK Lidocaine 1 patch 02/13/17 15:15 02/15/17 11:25 Lidoderm Patch - TP 1 patch DAILY KENDRICK Administration Miscellaneous 1 each 02/13/17 22:00 02/14/17 21:40 Lidoderm Patch Removal MC 1 each DAILY@2200 KENDRICK Administration Pantoprazole Sodium 40 mg 02/09/17 10:00 02/15/17 11:25 Protonix - PO 40 mg DAILY KENDRICK Administration Potassium Chloride 20 meq 02/11/17 14:00 02/15/17 11:25 K-Dur - PO 20 meq DAILY KENDRICK Administration Spironolactone 75 mg 02/09/17 10:00 02/15/17 12:59 Aldactone - PO Not Given BID KENDRICK Tamsulosin HCl 0.4 mg 02/09/17 22:00 02/14/17 21:38 Flomax - PO 0.4 mg HS KENDRICK Administration ASSESSMENT/PLAN: 46M with PMH of of Hep C, cirrhosis, ascites, esophageal varices w/ bleeding ( banding on 11/2016), hx of etoh abuse, s/p small bowel resection, presents with worsening abdominal distension and pain, admitted for severe sepsis. # severe sepsis 2/2 bacteremia and UTI - s/p 7 day course of IV Zosyn - repeat blood culture 02/11/17 (-) x 96 hrs # low back pain - Lumbar MRI (-) for osteomyelitis and discitis. MRI does show small L4-L5 and L5-S1 disc herniation which may be cause of pain, although no concerns on exam. - pain control with Lidoderm patch and Tylenol prn - pt encouraged to participate with PT # thrombocytopenia - likely 2/2 liver disease - stable - monitor for overt signs of bleeding - hold heparin in setting of thrombocytopenia # ascites - likely 2/2 liver disease - continue Spironolactone, Lasix and K-dur supplement - low Na+ diet - continue Lactulose - s/p therapeutic paracentesis today - 3L removed per pt - f/u with GI as outpt # Right LE chronic vascular ulcer - f/u with Vascular Surgeon (Dr. Garcia) for outpt wound care # polysubstance abuse - continue home folic acid - monitor for s/s of withdrawal # FEN - Fluids: po - Electrolytes: continue to monitor - Nutrition: low sodium diet # Prophylaxis - DVT ppx with phillip SCDs, hold pharmacologic ppx 2/2 thrombocytopenia - GI ppx with Protonix Visit type - Emergency Visit Emergency Visit: Yes ED Registration Date: 02/08/17 Care time: The patient presented to the Emergency Department on the above date and was hospitalized for further evaluation of their emergent condition. - New Patient This patient is new to me today: No - Critical Care Critical Care patient: No
[2017-02-15] MEDS: LIDOCAINE PATCH REMOVAL MC SCH (22:44)
[2017-02-15] MEDS: TAMSULOSIN HCL 0.4 MG CAP.ER.24H (FP) PO SCH (22:44)
[2017-02-16] MEDS: ACETAMINOPHEN 325 MG TABLET (FP) PO PRN ×4 (01:36→21:16)
[2017-02-16] MEDS: FUROSEMIDE 40 MG TABLET (FP) PO SCH ×2 (06:15→15:03)
[2017-02-16 07:16] LABS: HEMATOCRIT 31.7 % (35.4-49); HEMOGLOBIN 9.9 GM/dL (11.7-16.9); MCH 25.3 pg (25.7-33.7); MCHC 31.3 g/dl (32.0-35.9); MEAN CELL VOLUME 80.8 fl (80-96); MEAN PLT VOLUME 7.1 fl (7.5-11.1); PLATELET COUNT 126 K/MM3 (134-434); RBC 3.92 M/mm3 (4.00-5.60); RDW 21.2 % (11.9-15.9); WHITE BLOOD COUNT 5.4 K/mm3 (4.0-10.0)
[2017-02-16 08:11] LABS: ALBUMIN 1.7 g/dl (3.4-5.0); ANION GAP 8 (8-16); BILIRUBIN,TOTAL 1.7 mg/dL (0.2-1.0); BLOOD UREA NITROGEN 9 mg/dL (7-18); CALCIUM 7.4 mg/dL (8.5-10.1); CHLORIDE 105 mmol/L (98-107); CO2 25 mmol/L (21-32); CREATININE 0.4 mg/dL (0.7-1.3); GLUCOSE,RANDOM 106 mg/dL (74-106); POTASSIUM 3.3 mmol/L (3.5-5.1); SGOT/AST 52 U/L (15-37); SGPT/ALT 35 U/L (12-78); SODIUM 138 mmol/L (136-145)
[2017-02-16 08:12] LABS: ALK PHOS 247 U/L (45-117); TOT PROT 6.5 g/dl (6.4-8.2)
[2017-02-16] MEDS ORDERED: PT OWN MED DRAWER 7, Y5N ONE (09:02)
[2017-02-16] MEDS: LACTOBACILLUS ACIDOPHILUS 1 EACH TAB (FP) PO SCH (09:04)
[2017-02-16] MEDS: FOLIC ACID 1 MG TABLET (FP) PO SCH (09:04)
[2017-02-16] MEDS: SPIRONOLACTONE 25 MG TABLET (FP) PO SCH ×2 (09:04→23:05)
[2017-02-16] MEDS: POTASSIUM CHLORIDE TABS 20 MEQ TABLET.ER (FP) PO SCH (09:04)
[2017-02-16] MEDS: FERROUS SO4 325 MG TABLET (FP) PO SCH (09:04)
[2017-02-16] MEDS: LIDOCAINE 5% TOPICAL PATCH TP SCH (09:04)
[2017-02-16] MEDS: PANTOPRAZOLE 40 MG TABLET (FP) PO SCH (09:04)
[2017-02-16] MEDS: LACTULOSE 20 GM/30 ML UDC (FOR ORAL USE ONLY) PO SCH ×4 (09:05→21:15)
[2017-02-16] MEDS ORDERED: ACETAMINOPHEN 325 MG TABLET (FP) PO PRN (10:16)
[2017-02-16] MEDS: oxyCODONE HCL 5 MG TABLET PO PRN ×2 (10:19→16:38)
--- NOTE | 2017-02-16 11:40 | CON.PSY ---
Psychiatry Consult Chief Complaint: Patient seen for capacity, he is demanding top sign out AMA. $ 6 yr old male with a history of Alcohol abuse and dependence, Cirrhosis of liver. Patient also is homeless at this time. No p[sych history or self damaging behaviour. Symptoms: reports: Conduct Problems, Oppositionalism - Previous Psychiatric Treatment Outpatient: None Inpatient: None - Previous Substance Abuse Treatment Outpatient: None Inpatient: None - Current Medications Current Medications: Active Medications Acetaminophen (Tylenol -) 650 mg PO Q6H PRN PRN Reason: FEVER OR PAIN Last Admin: 02/16/17 09:04 Dose: 650 mg Acetaminophen (Tylenol -) 650 mg PO Q6H PRN PRN Reason: PAIN Ferrous Sulfate (Feosol -) 325 mg PO DAILY [facility] Last Admin: 02/16/17 09:04 Dose: 325 mg Folic Acid (Folic Acid -) 1 mg PO DAILY [facility] Last Admin: 02/16/17 09:04 Dose: 1 mg Furosemide (Lasix -) 40 mg PO BID@0600,1400 [facility] Last Admin: 02/16/17 06:15 Dose: Not Given Lactobacillus Acidophilus (Bacid -) 1 tab PO DAILY [facility] Last Admin: 02/16/17 09:04 Dose: 1 tab Lactulose (Cephulac (Oral Use)) 30 gm PO QID [facility] Last Admin: 02/16/17 09:05 Dose: Not Given Lidocaine (Lidoderm Patch -) 1 patch TP DAILY [facility] Last Admin: 02/16/17 09:04 Dose: 1 patch Miscellaneous (Lidoderm Patch Removal) 1 each MC DAILY@2200 [facility] Last Admin: 02/15/17 22:44 Dose: 1 each Oxycodone HCl (Roxicodone -) 10 mg PO Q6H PRN PRN Reason: PAIN Last Admin: 02/16/17 10:19 Dose: 10 mg Pantoprazole Sodium (Protonix -) 40 mg PO DAILY [facility] Last Admin: 02/16/17 09:04 Dose: 40 mg Potassium Chloride (K-Dur -) 20 meq PO DAILY [facility] Last Admin: 02/16/17 09:04 Dose: 20 meq Spironolactone (Aldactone -) 75 mg PO BID [facility] Last Admin: 02/16/17 09:04 Dose: 75 mg Tamsulosin HCl (Flomax -) 0.4 mg PO HS [facility] Last Admin: 02/15/17 22:44 Dose: Not Given - Allergies Allergies: Allergies Allergy/AdvReac Type Severity Reaction Status Date / Time No Known Allergies Allergy Verified 02/08/17 11:45 - Current Living Status Usual Living Arrangement: Alone - Current Mental Status Evaluation Appearance: Well Groomed Attitude: Uncooperative - Affect Affect: Constrictive Appropriateness: Appropriate to Content - Mood Mood: Euthymic - Speech/Language Expressive: Coherent - Psychomotor Activity Psychomotor Activity: Slowed - Thought Process Thought Process: Intact - Thought Content Hallucinations: Absent Delusions: Absent - Self Perception Self Perception: No Impairment - Cognition Attention: Alert Orientation: Time Memory, Immediate Recall: Intact Memory, Short Term: 2/3 Memory, Remote with Promptin/3 - Concentration Serial Sevens Intact: No Simple Calculations Intact: No - Abstraction Proverb Interpretation: Intact Judgement: Minimally Impaired - Insight Insight: Intact - Impulse Control Impulse Control: Minimally Impaired - Suicidal Ideation Suicidal Ideation: No - Homicidal Ideation Homicidal Ideation: No Assessment/Plan 1) Patient has the functional capacity to make decisions at this time. 2) However, Patient is homeless and manipulative seeking [pain meds. 3) Patient can leave in care of his family if he chooses because of incliment weather.
--- NOTE | 2017-02-16 17:12 | PN ---
Teaching Attending Note Name of Resident: Marian Monsivais ATTENDING PHYSICIAN STATEMENT Time of evaluation: 10:15 AM I saw and evaluated the patient. I reviewed the resident's note and discussed the case with the resident. I agree with the resident's findings and plan as documented. SUBJECTIVE: patient seen and examined, initially wanted to leave, reports will go to his brother's place but no plan in place. No nausea, vomiting, abdominal pain or diarrhea. Stated back pain earlier, didnt walk to PT yesterday, but was able to walk down to the lobby with cane today. Asking for pain meds from different providers and asking for sleeping pills from the psychiatrist, witnessed currently. OBJECTIVE: Vital Signs Period Temp Pulse Resp BP Sys/Choi Pulse Ox Last 24 Hr 97.8 F-98.6 F 85-90 20-22 106-148/60-111 96 Intake & Output 02/13/17 02/14/17 02/15/17 02/16/17 23:59 23:59 23:59 23:59 Intake Total 2059 1165 655 685 Balance 2059 1165 655 685 Weight 193 lb 12.8 oz 174 lb 9.6 oz General: sitting in bed in no acute distress Chest: CTAB, no rales or wheezing abdomen: improved distension, soft, NT throughout extremities: no edema Musculoskeletal: no spinal tenderness Active Medications Generic Name Dose Route Start Last Admin Trade Name Freq PRN Reason Stop Dose Admin Acetaminophen 650 mg 02/08/17 21:52 02/16/17 15:03 Tylenol - PO 650 mg Q6H PRN Administration FEVER OR PAIN Acetaminophen 650 mg 02/16/17 10:16 Tylenol - PO Q6H PRN PAIN Ferrous Sulfate 325 mg 02/09/17 10:00 02/16/17 09:04 Feosol - PO 325 mg DAILY [facility] Administration Folic Acid 1 mg 02/09/17 10:00 02/16/17 09:04 Folic Acid - PO 1 mg DAILY [facility] Administration Furosemide 40 mg 02/09/17 06:00 02/16/17 15:03 Lasix - PO 40 mg BID@0600,1400 [facility] Administration Lactobacillus Acidophilus 1 tab 02/09/17 10:00 02/16/17 09:04 Bacid - PO 1 tab DAILY [facility] Administration Lactulose 30 gm 02/09/17 10:00 02/16/17 15:04 Cephulac (Oral Use) PO 30 gm QID [facility] Administration Lidocaine 1 patch 02/13/17 15:15 02/16/17 09:04 Lidoderm Patch - TP 1 patch DAILY [facility] Administration Miscellaneous 1 each 02/13/17 22:00 02/15/17 22:44 Lidoderm Patch Removal MC 1 each DAILY@2200 [facility] Administration Pantoprazole Sodium 40 mg 02/09/17 10:00 02/16/17 09:04 Protonix - PO 40 mg DAILY [facility] Administration Potassium Chloride 20 meq 02/11/17 14:00 02/16/17 09:04 K-Dur - PO 20 meq DAILY [facility] Administration Spironolactone 75 mg 02/09/17 10:00 02/16/17 09:04 Aldactone - PO 75 mg BID [facility] Administration Tamsulosin HCl 0.4 mg 02/09/17 22:00 02/15/17 22:44 Flomax - PO Not Given HS [facility] Laboratory Results - last 24 hr 02/16/17 02/16/17 07:05 07:05 WBC 5.4 RBC 3.92 L Hgb 9.9 L D Hct 31.7 L MCV 80.8 MCH 25.3 L MCHC 31.3 L RDW 21.2 H Plt Count 126 L MPV 7.1 L Sodium 138 Potassium 3.3 L Chloride 105 Carbon Dioxide 25 Anion Gap 8 BUN 9 Creatinine 0.4 L Creat Clearance w eGFR > 60 Random Glucose 106 Calcium 7.4 L Total Bilirubin 1.7 H D AST 52 H ALT 35 Alkaline Phosphatase 247 H Total Protein 6.5 Albumin 1.7 L Microbiology 02/11/17 15:05 Blood - Peripheral Venous Blood Culture - Final NO GROWTH AFTER 5 DAYS INCUBATION 02/11/17 15:00 Blood - Peripheral Venous Blood Culture - Final NO GROWTH AFTER 5 DAYS INCUBATION 02/08/17 14:49 Blood - Peripheral Venous Blood Culture - Preliminary Strep Agalactiae Group B 02/08/17 15:33 Paracentesis Gram Stain - Final 02/08/17 15:33 Paracentesis Body Fluid Culture - Final NO GROWTH OF AEROBIC ORGANISMS AFTER 48 HOURS INCUBATION 02/08/17 15:33 Paracentesis Anaerobic Culture - Final NO ANAEROBES WERE ISOLATED 02/08/17 16:10 Urine - Urine Clean Catch Urine Culture - Final Klebsiella Pneumoniae 12/27/17 14:49 Blood - Peripheral Venous Blood Culture - Final Strep Agalactiae Group B ASSESSMENT AND PLAN: 46yo M with PMH Hepatitis C, alcohol abuse, cirrhosis, ascites, esophageal varices, umbilical hernia, s/p small bowel resection, admitted to the hospital for severe sepsis. -Severe sepsis due to KLebsiella UTI/ Also with Strep B Agalactie bacteremia -Low back -Decompensated alcoholic cirrhosis with ascitis, esophageal varices -HCT -Thrombocytopenia, from cirrhoss -Hypokalemia -Hypomagnesemia Plan: lactic acidosis resolved. continues to have back pain. s/p 7 days of zosyn, antibiotics d/kenna 02/15. No new concerns, monitor for now. .MRI showing small L4-L5 L5-S1 disc herniation which may be cause of pain.no concerns on exam, Lidoderm patch, avoid narcotics . PT eval. Patient declined being able to walk with PT yesterday, however, was noted walking down with cane to the lobby today. Asking for pain medications and sleeping pills from different providers. Avoid narcotics for now as has been ambulating and no concerns on MRI spine. s/p 3 liters therapeutic paracentesis on 02/14. Continue lasix/aldactone, PPI, KCL supplementation Outpatient GI follow up. Psych input appreciated. PT eval noted. Social work input for dispositon assistance. D/c in 24 hours if no new events noted.
[2017-02-16] MEDS ORDERED: POTASSIUM CHLORIDE TABS 20 MEQ TABLET.ER (FP) PO ONE (17:31)
--- NOTE | 2017-02-16 17:43 | PN ---
Physical Exam: SUBJECTIVE: Patient seen and examined. Pt reports abdominal pain and distention have improved. Pt wanting to leave AMA, but then changed his mind. No events overnight. OBJECTIVE: Vital Signs Period Temp Pulse Resp BP Sys/Choi Pulse Ox Last 24 Hr 97.8 F-98.6 F 85-90 20-22 106-148/60-111 96 GENERAL: The patient is awake, alert, and fully oriented, in no acute distress. LUNGS: Breath sounds equal, clear to auscultation bilaterally, no wheezes, no crackles, no accessory muscle use. HEART: Regular rate and rhythm, +S1/S2. ABDOMEN: Soft, nontender, less distended today. EXTREMITIES: Warm, well-perfused, no edema. Right LE vascular ulcer with dressing CDI. SKIN: Warm, dry, normal turgor, no rashes Laboratory Results - last 24 hr 02/16/17 02/16/17 07:05 07:05 WBC 5.4 RBC 3.92 L Hgb 9.9 L D Hct 31.7 L MCV 80.8 MCH 25.3 L MCHC 31.3 L RDW 21.2 H Plt Count 126 L MPV 7.1 L Sodium 138 Potassium 3.3 L Chloride 105 Carbon Dioxide 25 Anion Gap 8 BUN 9 Creatinine 0.4 L Creat Clearance w eGFR > 60 Random Glucose 106 Calcium 7.4 L Total Bilirubin 1.7 H D AST 52 H ALT 35 Alkaline Phosphatase 247 H Total Protein 6.5 Albumin 1.7 L Active Medications Generic Name Dose Route Start Last Admin Trade Name Freq PRN Reason Stop Dose Admin Acetaminophen 650 mg 02/08/17 21:52 02/16/17 15:03 Tylenol - PO 650 mg Q6H PRN Administration FEVER OR PAIN Acetaminophen 650 mg 02/16/17 10:16 Tylenol - PO Q6H PRN PAIN Ferrous Sulfate 325 mg 02/09/17 10:00 02/16/17 09:04 Feosol - PO 325 mg DAILY [facility] Administration Folic Acid 1 mg 02/09/17 10:00 02/16/17 09:04 Folic Acid - PO 1 mg DAILY [facility] Administration Furosemide 40 mg 02/09/17 06:00 02/16/17 15:03 Lasix - PO 40 mg BID@0600,1400 [facility] Administration Lactobacillus Acidophilus 1 tab 02/09/17 10:00 02/16/17 09:04 Bacid - PO 1 tab DAILY [facility] Administration Lactulose 30 gm 02/09/17 10:00 02/16/17 15:04 Cephulac (Oral Use) PO 30 gm QID [facility] Administration Lidocaine 1 patch 02/13/17 15:15 02/16/17 09:04 Lidoderm Patch - TP 1 patch DAILY [facility] Administration Miscellaneous 1 each 02/13/17 22:00 02/15/17 22:44 Lidoderm Patch Removal MC 1 each DAILY@2200 [facility] Administration Pantoprazole Sodium 40 mg 02/09/17 10:00 02/16/17 09:04 Protonix - PO 40 mg DAILY [facility] Administration Potassium Chloride 20 meq 02/11/17 14:00 02/16/17 09:04 K-Dur - PO 20 meq DAILY [facility] Administration Spironolactone 75 mg 02/09/17 10:00 02/16/17 09:04 Aldactone - PO 75 mg BID [facility] Administration Tamsulosin HCl 0.4 mg 02/09/17 22:00 02/15/17 22:44 Flomax - PO Not Given HS [facility] ASSESSMENT/PLAN: 46M with PMH of of Hep C, cirrhosis, ascites, esophageal varices w/ bleeding ( banding on 11/2016), hx of etoh abuse, s/p small bowel resection, presents with worsening abdominal distension and pain, admitted for severe sepsis. # severe sepsis 2/2 bacteremia and UTI - s/p 7 day course of IV Zosyn - repeat blood culture 02/11/17 (-) x 5 days # low back pain - Lumbar MRI (-) for osteomyelitis and discitis. MRI does show small L4-L5 and L5-S1 disc herniation which may be cause of pain, although no concerns on exam. - pain control with Lidoderm patch and Tylenol prn - pt encouraged to participate with PT # thrombocytopenia - likely 2/2 liver disease - stable - monitor for overt signs of bleeding - hold heparin in setting of thrombocytopenia # ascites - likely 2/2 liver disease - continue Spironolactone, Lasix and K-dur supplement - low Na+ diet - continue Lactulose - s/p therapeutic paracentesis today - 3L removed per pt - f/u with GI as outpt # Right LE chronic vascular ulcer - f/u with Vascular Surgeon (Dr. Garcia) for outpt wound care # polysubstance abuse - continue home folic acid - monitor for s/s of withdrawal # FEN - Fluids: po - Electrolytes: continue to monitor - Nutrition: low sodium diet # Prophylaxis - DVT ppx with phillip SCDs, hold pharmacologic ppx 2/2 thrombocytopenia - GI ppx with Protonix - deconditioning ppx with PT # dispo - pt walked down to lobby with cane, attempting to leave AMA, but changed mind - Psych (Dr. Villalba) recs appreciated: pt has functional capacity to make decisions - pt medically optimized for discharge tomorrow - Social work input for dispositon assistance appreciated Visit type - Emergency Visit Emergency Visit: Yes ED Registration Date: 02/08/17 Care time: The patient presented to the Emergency Department on the above date and was hospitalized for further evaluation of their emergent condition. - New Patient This patient is new to me today: No - Critical Care Critical Care patient: No
[2017-02-16] MEDS: LIDOCAINE PATCH REMOVAL MC SCH (21:15)
[2017-02-16] MEDS: TAMSULOSIN HCL 0.4 MG CAP.ER.24H (FP) PO SCH (21:15)
[2017-02-16] MEDS ORDERED: MELATONIN 5 MG TABLETS PO PRN (22:00)
[2017-02-17] MEDS: FUROSEMIDE 40 MG TABLET (FP) PO SCH ×2 (06:11→14:11)
[2017-02-17] MEDS: ACETAMINOPHEN 325 MG TABLET (FP) PO PRN ×2 (06:12→13:05)
[2017-02-17 08:29] LABS: HEMATOCRIT 30.5 % (35.4-49); HEMOGLOBIN 9.9 GM/dL (11.7-16.9); MCH 26.2 pg (25.7-33.7); MCHC 32.3 g/dl (32.0-35.9); MEAN CELL VOLUME 80.9 fl (80-96); MEAN PLT VOLUME 6.9 fl (7.5-11.1); PLATELET COUNT 125 K/MM3 (134-434); RBC 3.77 M/mm3 (4.00-5.60); RDW 21.4 % (11.9-15.9); WHITE BLOOD COUNT 5.3 K/mm3 (4.0-10.0)
--- NOTE | 2017-02-17 08:50 | PN ---
Teaching Attending Note Name of Resident: Marian Monsivais ATTENDING PHYSICIAN STATEMENT Time of evaluation: I saw and evaluated the patient. I reviewed the resident's note and discussed the case with the resident. I agree with the resident's findings and plan as documented. SUBJECTIVE: patient seen and examined. back pain but complaints otherwise, has been ambulating. no urinary or bowel symptoms, no nasuea, vomitting or abdominal pain , fevers or chills. OBJECTIVE: Vital Signs Period Temp Pulse Resp BP Sys/Choi Pulse Ox Last 24 Hr 97.8 F-99.2 F 81-92 18-22 119-148/59-111 Intake & Output 02/14/17 02/15/17 02/16/17 02/17/17 23:59 23:59 23:59 23:59 Intake Total 8890 597 1168 120 Balance 2124 646 8458 120 Weight 193 lb 12.8 oz 174 lb 9.6 oz General: sitting in bed in no acute distress Abdomen: soft, some distension, non tender throughout, no voluntary or involuntary guarding or rigidity Chest: CTAB, no rales or wheezing extremities: no edema Musculoskeletal: no spinal tenderness Active Medications Generic Name Dose Route Start Last Admin Trade Name Freq PRN Reason Stop Dose Admin Acetaminophen 650 mg 02/08/17 21:52 02/17/17 06:12 Tylenol - PO 650 mg Q6H PRN Administration FEVER OR PAIN Acetaminophen 650 mg 02/16/17 10:16 Tylenol - PO Q6H PRN PAIN Ferrous Sulfate 325 mg 02/09/17 10:00 02/16/17 09:04 Feosol - PO 325 mg DAILY [facility] Administration Folic Acid 1 mg 02/09/17 10:00 02/16/17 09:04 Folic Acid - PO 1 mg DAILY [facility] Administration Furosemide 40 mg 02/09/17 06:00 02/17/17 06:11 Lasix - PO 40 mg BID@0600,1400 [facility] Administration Lactobacillus Acidophilus 1 tab 02/09/17 10:00 02/16/17 09:04 Bacid - PO 1 tab DAILY [facility] Administration Lactulose 30 gm 02/09/17 10:00 02/16/17 21:15 Cephulac (Oral Use) PO Not Given QID [facility] Lidocaine 1 patch 02/13/17 15:15 02/16/17 09:04 Lidoderm Patch - TP 1 patch DAILY [facility] Administration Melatonin 5 mg 02/16/17 22:00 02/16/17 23:06 Melatonin PO 5 mg HS PRN Administration INSOMNIA Miscellaneous 1 each 02/13/17 22:00 02/16/17 21:15 Lidoderm Patch Removal MC 1 each DAILY@2200 [facility] Administration Pantoprazole Sodium 40 mg 02/09/17 10:00 02/16/17 09:04 Protonix - PO 40 mg DAILY [facility] Administration Potassium Chloride 20 meq 02/11/17 14:00 02/16/17 09:04 K-Dur - PO 20 meq DAILY [facility] Administration Spironolactone 75 mg 02/09/17 10:00 02/16/17 23:05 Aldactone - PO 75 mg BID [facility] Administration Tamsulosin HCl 0.4 mg 02/09/17 22:00 02/16/17 21:15 Flomax - PO 0.4 mg HS [facility] Administration Microbiology 02/11/17 15:05 Blood - Peripheral Venous Blood Culture - Final NO GROWTH AFTER 5 DAYS INCUBATION 02/11/17 15:00 Blood - Peripheral Venous Blood Culture - Final NO GROWTH AFTER 5 DAYS INCUBATION 02/08/17 14:49 Blood - Peripheral Venous Blood Culture - Preliminary Strep Agalactiae Group B 02/08/17 15:33 Paracentesis Gram Stain - Final 02/08/17 15:33 Paracentesis Body Fluid Culture - Final NO GROWTH OF AEROBIC ORGANISMS AFTER 48 HOURS INCUBATION 02/08/17 15:33 Paracentesis Anaerobic Culture - Final NO ANAEROBES WERE ISOLATED 02/08/17 16:10 Urine - Urine Clean Catch Urine Culture - Final Klebsiella Pneumoniae 02/08/17 14:49 Blood - Peripheral Venous Blood Culture - Final Strep Agalactiae Group B MRI spine results reviewed ASSESSMENT AND PLAN: 46yo M with PMH Hepatitis C, alcohol abuse, cirrhosis, ascites, esophageal varices, umbilical hernia, s/p small bowel resection, admitted to the hospital for severe sepsis. -Severe sepsis due to KLebsiella UTI/ Also with Strep B Agalactie bacteremia -Low back -Decompensated alcoholic cirrhosis with ascitis, esophageal varices -Abdominal pain -HCT -Thrombocytopenia, from cirrhoss -Hypokalemia -Hypomagnesemia Plan: lactic acidosis resolved. continues to have back pain. s/p 7 days of zosyn, antibiotics d/kenna 02/15. No new concerns, monitor for now. Discussed with Dr. Beebe, no further needs for antibiotics. .MRI showing small L4-L5 L5-S1 disc herniation which may be cause of pain.no concerns on exam, Lidoderm patch, avoid narcotics . PT nicolette noted, patient ambulated, also was noted ambulating with cane when walked down to the lobby with no concerns. . s/p 3 liters therapeutic paracentesis on 02/14. No new abdominal concerns. Continue lasix/aldactone, PPI, KCL supplementation Outpatient GI follow up. Psych input appreciated. PT nicolette noted. Discussed with social work, patient did fairly well with PT, however, if interested could be arranged for SNF. Discussed in detail with patient offered if would want to go to SNF. However, patient declined the same and wanted to go back in the community, open to custodial options discussion with social work. Advised importance of close follow up, continuation of his medications as directed, and risks of non compliance including sepsis, falls, fractures and even . Patient able to relay full understanding of the same. Outpatient follow up at the medical clinic arranged for 02/24. Social work to provide information on custodial resources. d/c home today. Prescriptions provided,outpatient follow up arranged, plan discussed in detail with the patient and all questions answered.
[2017-02-17 09:15] LABS: ALK PHOS 218 U/L (45-117); CHLORIDE 108 mmol/L (98-107); POTASSIUM 4.2 mmol/L (3.5-5.1); SODIUM 137 mmol/L (136-145)
[2017-02-17 09:26] LABS: ALBUMIN 1.8 g/dl (3.4-5.0); ANION GAP 7 (8-16); BILIRUBIN,TOTAL 2.3 mg/dL (0.2-1.0); BLOOD UREA NITROGEN 11 mg/dL (7-18); CALCIUM 7.7 mg/dL (8.5-10.1); CO2 22 mmol/L (21-32); CREATININE 0.5 mg/dL (0.7-1.3); GLUCOSE,RANDOM 74 mg/dL (74-106); SGOT/AST 47 U/L (15-37); SGPT/ALT 33 U/L (12-78); TOT PROT 6.3 g/dl (6.4-8.2)
[2017-02-17] MEDS: LIDOCAINE 5% TOPICAL PATCH TP SCH (10:31)
[2017-02-17] MEDS: FERROUS SO4 325 MG TABLET (FP) PO SCH (10:31)
[2017-02-17] MEDS: LACTOBACILLUS ACIDOPHILUS 1 EACH TAB (FP) PO SCH (10:31)
[2017-02-17] MEDS: PANTOPRAZOLE 40 MG TABLET (FP) PO SCH (10:31)
[2017-02-17] MEDS: FOLIC ACID 1 MG TABLET (FP) PO SCH (10:31)
[2017-02-17] MEDS: POTASSIUM CHLORIDE TABS 20 MEQ TABLET.ER (FP) PO SCH (10:32)
[2017-02-17] MEDS: LACTULOSE 20 GM/30 ML UDC (FOR ORAL USE ONLY) PO SCH ×4 (10:32→14:11)
[2017-02-17] MEDS: SPIRONOLACTONE 25 MG TABLET (FP) PO SCH ×2 (10:33→10:41)
[2017-02-17] MEDS ORDERED: morphine CARPU-JECT 10 MG/1 ML DISP.SYRIN IVPUSH ONE (11:23)
--- NOTE | 2017-02-17 12:02 | PN ---
Progress Note, Physician History of Present Illness: stable pain complaint - Current Medication List Current Medications: Active Medications Acetaminophen (Tylenol -) 650 mg PO Q6H PRN PRN Reason: FEVER OR PAIN Last Admin: 02/17/17 06:12 Dose: 650 mg Acetaminophen (Tylenol -) 650 mg PO Q6H PRN PRN Reason: PAIN Ferrous Sulfate (Feosol -) 325 mg PO DAILY [facility] Last Admin: 02/17/17 10:31 Dose: 325 mg Folic Acid (Folic Acid -) 1 mg PO DAILY [facility] Last Admin: 02/17/17 10:31 Dose: 1 mg Furosemide (Lasix -) 40 mg PO BID@0600,1400 [facility] Last Admin: 02/17/17 06:11 Dose: 40 mg Lactobacillus Acidophilus (Bacid -) 1 tab PO DAILY [facility] Last Admin: 02/17/17 10:31 Dose: 1 tab Lactulose (Cephulac (Oral Use)) 30 gm PO QID [facility] Last Admin: 02/17/17 10:40 Dose: Not Given Lidocaine (Lidoderm Patch -) 1 patch TP DAILY [facility] Last Admin: 02/17/17 10:31 Dose: 1 patch Melatonin (Melatonin) 5 mg PO HS PRN PRN Reason: INSOMNIA Last Admin: 02/16/17 23:06 Dose: 5 mg Miscellaneous (Lidoderm Patch Removal) 1 each MC DAILY@2200 [facility] Last Admin: 02/16/17 21:15 Dose: 1 each Pantoprazole Sodium (Protonix -) 40 mg PO DAILY [facility] Last Admin: 02/17/17 10:31 Dose: 40 mg Potassium Chloride (K-Dur -) 20 meq PO DAILY [facility] Last Admin: 02/17/17 10:32 Dose: 20 meq Spironolactone (Aldactone -) 75 mg PO BID [facility] Last Admin: 02/17/17 10:41 Dose: 75 mg Tamsulosin HCl (Flomax -) 0.4 mg PO HS [facility] Last Admin: 02/16/17 21:15 Dose: 0.4 mg - Objective Vital Signs: Vital Signs Temperature 98.4 F 02/17/17 10:23 Pulse Rate 76 02/17/17 10:23 Respiratory Rate 20 02/17/17 10:23 Blood Pressure 118/57 02/17/17 10:23 O2 Sat by Pulse Oximetry (%) 96 02/17/17 10:17 Constitutional: Yes: Calm, Mild Distress Cardiovascular: Yes: Regular Rate and Rhythm Respiratory: Yes: Regular, CTA Bilaterally Musculoskeletal: Yes: Back Pain Extremities: Yes: Other Wound/Incision: Yes: Dressing Dry and Intact Neurological: Yes: Alert, Oriented Psychiatric: Yes: Alert, Oriented Labs: CBC, BMP 02/17/17 07:05 02/17/17 07:05 INR, PTT INR 1.59 (0.82-1.09) H 02/14/17 12:00 Assessment/Plan sepsis bacteremia ascites chr leg wound fever uti all cx negative all imaging studies negative plan stable off of abx wound care pain mgmt rest as per primary team
[2017-02-17 14:11] VITALS: BP 126/73; PULSE 91; TEMP 98.2
--- NOTE | 2017-02-17 17:12 | DS ---
Physical Exam: SUBJECTIVE: Patient seen and examined. Pt continues to c/o back pain. No fevers, chills. OBJECTIVE: Vital Signs Period Temp Pulse Resp BP Sys/Choi Pulse Ox Last 24 Hr 98.2 F-99.2 F 76-92 18-20 118-126/57-77 96 PHYSICAL EXAM GENERAL: The patient is awake, alert, and fully oriented, in no acute distress. LUNGS: Breath sounds equal, clear to auscultation bilaterally, no wheezes, no crackles, no accessory muscle use. HEART: Regular rate and rhythm, +S1/S2. ABDOMEN: Soft, nontender, +distention. MS: no spinal tenderness EXTREMITIES: Warm, well-perfused, no edema. Right LE vascular ulcer with dressing CDI. SKIN: Warm, dry, normal turgor, no rashes LABS Laboratory Results - last 24 hr 02/17/17 02/17/17 07:05 07:05 WBC 5.3 RBC 3.77 L Hgb 9.9 L Hct 30.5 L MCV 80.9 MCH 26.2 MCHC 32.3 RDW 21.4 H Plt Count 125 L MPV 6.9 L Sodium 137 Potassium 4.2 D Chloride 108 H Carbon Dioxide 22 Anion Gap 7 L BUN 11 D Creatinine 0.5 L D Creat Clearance w eGFR > 60 Random Glucose 74 D Calcium 7.7 L Total Bilirubin 2.3 H D AST 47 H ALT 33 Alkaline Phosphatase 218 H Total Protein 6.3 L Albumin 1.8 L HOSPITAL COURSE: Date of Admission:02/08/17 Date of Discharge: 02/17/17 46M with PMH of of Hep C, cirrhosis, ascites, esophageal varices w/ bleeding ( banding on 11/2016), hx of etoh abuse, s/p small bowel resection, presents with worsening abdominal distension and pain, admitted for severe sepsis. Pt received therapeutic paracentesis. Pt completed course of IV antibiotics for sepsis 2/2 bacteremia. Pt encouraged to participate in PT for back pain. Pt [facility] Right [facility] chronic vascular ulcer. 02/08/17 CXR -> no definite air space consolidation or pleural effusion 02/09/17 lumbosacral xray -> no compression fracture. Degenerative posterior facet hypertrophy @ L4-L5 and L5-S1. 02/11/17 Lumbar MRI -> small central L4-L5, L5-S1 disc herniations noted. No osteomyelitis/discitis. 02/10/17 Echo -> Left ventricular systolic function normal. Mild MR and TR. No pericardial effusion. Microbiology 02/11/17 15:05 Blood - Peripheral Venous Blood Culture - Final NO GROWTH AFTER 5 DAYS INCUBATION 02/11/17 15:00 Blood - Peripheral Venous Blood Culture - Final NO GROWTH AFTER 5 DAYS INCUBATION 02/08/17 14:49 Blood - Peripheral Venous Blood Culture - Preliminary Strep Agalactiae Group B 02/08/17 15:33 Paracentesis Gram Stain - Final 02/08/17 15:33 Paracentesis Body Fluid Culture - Final NO GROWTH OF AEROBIC ORGANISMS AFTER 48 HOURS INCUBATION 02/08/17 15:33 Paracentesis Anaerobic Culture - Final NO ANAEROBES WERE ISOLATED 02/08/17 16:10 Urine - Urine Clean Catch Urine Culture - Final Klebsiella Pneumoniae 02/08/17 14:49 Blood - Peripheral Venous Blood Culture - Final Strep Agalactiae Group B Pt walked 50 ft with PT on 02/16/17. Pt medically stable for discharge. Minutes to complete discharge: 40 Discharge Summary Reason For Visit: OPEN WOUND/POLY SUCS/ABDOMINAL PAIN Condition: Improved - Instructions Diet, Activity, Other Instructions: You were treated for infection in your blood, abdominal distention and pain. You received IV antibiotics. Your new medications include: a Lidoderm patch for pain to be applied topically once daily, and a potassium supplement (K-dur) once daily. Please continue your other home medications as prescribed. Follow-ups: - with your Primary Care Physician (Garcia Arteaga) on Monday (02/24/17) at 1pm. - with a GI doctor (Dr. Rivera) to care for your liver disease. -With Dr. Garcia for routine wound care for your leg Return to the hospital immediately if you experience persistent or increased abdominal pain, difficulty breathing, progressive belly distension, fevers, bleeding or for any medical emergency. Referrals: Garcia Arteaga [Primary Care Provider] - 02/24/17 1:00 pm Joseluis Rivera MD [Staff Physician] - Disposition: HOME - Home Medications Comprehensive Discharge Medication List: Ambulatory Orders Albuterol Sulfate Inhaler - [Ventolin HFA Inhaler -] 2 puff IH Q4H PRN #1 inhaler 02/15/17 Ferrous Sulfate [Feosol] 325 mg PO DAILY #30 tab 02/15/17 Fluticasone/Salmeterol [Advair Hfa 230-21 Mcg Inhaler] 2 puff IH BID #1 hfa.aer.ad 02/15/17 Folic Acid 1 mg PO DAILY #30 tablet 02/15/17 Furosemide [Lasix -] 40 mg PO BID@0600,1400 #60 tablet 02/15/17 Lactobacillus Combination No.4 [Probiotic] 1 each PO DAILY #30 capsule 02/15/17 Lactulose (Oral Use) [Cephulac -] 30 gm PO QID #120 dose 02/15/17 Lidocaine 5% Patch [Lidoderm Patch -] 1 patch TP DAILY #5 patch 02/15/17 Nadolol [Corgard -] 40 mg PO DAILY #30 tablet 02/15/17 Pantoprazole Sodium [Protonix] 40 mg PO DAILY #30 tablet.dr 02/15/17 Potassium Chloride [K-Dur -] 20 meq PO DAILY #3 tablet.er 02/15/17 Spironolactone [Aldactone -] 75 mg PO BID #60 tablet 02/15/17 Tamsulosin HCl [Flomax] 0.4 mg PO HS #30 cap.er.24h 02/15/17 This patient is new to me today: No Emergency Visit: Yes ED Registration Date: 02/08/17 Care time: The patient presented to the Emergency Department on the above date and was hospitalized for further evaluation of their emergent condition. Critical Care patient: No - Discharge Referral Referred to [facility] Med P.C.: No
== END 2017-02-17 14:42 | disposition home or self-care (01) | DRG 710 ==
LOC: JER 11:12 → JERBED 20:40 → J5S 23:00
PROVIDERS: ADMIT Internal Medicine; ATTEND Hospitalist
PROC: 0W9G3ZX Drainage of Peritoneal Cavity, Percutaneous Approach, Diagnostic (ICD-10-PCS; principal; 2017-02-14)
DX: A41.89 Other specified sepsis (principal); R00.0 Tachycardia, unspecified; L97.818 Non-pressure chronic ulcer of other part of right lower leg with other specified severity; K72.90 Hepatic failure, unspecified without coma; K42.9 Umbilical hernia without obstruction or gangrene; I10 Essential (primary) hypertension; D69.6 Thrombocytopenia, unspecified; B18.2 Chronic viral hepatitis C; M54.5 Low back pain; E87.6 Hypokalemia; K70.31 Alcoholic cirrhosis of liver with ascites; I85.00 Esophageal varices without bleeding; N39.0 Urinary tract infection, site not specified; F19.20 Other psychoactive substance dependence, uncomplicated; B96.1 Klebsiella pneumoniae [K. pneumoniae] as the cause of diseases classified elsewhere; E83.42 Hypomagnesemia; E87.2 Acidosis; R10.84 Generalized abdominal pain; F41.8 Other specified anxiety disorders
CPT/HCPCS: 36415; 71010-TC; 72100-TC; 72148-TC; 76942-TC; 80048; 80053; 81003; 81015; 82042; 82140; 82150; 82247; 82945; 83605; 83615; 83690; 83735; 84100; 84157; 85025; 85027; 85610; 85651; 86140; 87040; 87070; 87075; 87086; 87186; 87205; 89051; 93005; 93010; 93306-TC; 97116-GP; 97161-GP; 99285-25; J1644

== ENCOUNTER 2017-09-24 17:18 | Inpatient (IN) | payer OTHER ==
--- NOTE | 2017-09-24 18:07 | PDOC ---
History of Present Illness - General Chief Complaint: Edema Stated Complaint: BACK/LEG PAIN History Source: Patient - History of Present Illness Initial Comments: 09/24/17 18:17 Patient is a 47 year old male with a significant PMH of cirhosis w/associated ascites and esophageal varices 2/2 to ETOH abuse, umbilical hernia s/p repair, small bowel resection and chronic RLE wounds who presents c/o back pain, RLE pain and testicular swelling. Notes all of these problems are chronic but he became especially concerned about his R leg because of burning pain over the last 48 hours. Daily dressing changes @ home. Evaluation at [facility] 2-3 months previous with debridement. Uncertain if he was started on any antibiotic therapy. Scrotal swelling is chronic and @ baseline but is c/o some itching and throbbing pain. Sister @ bedside notes daily alcohol use - both patient and sister denies any h/o DT's or alcoholic withdrawal seizures. Denies abdominal pain, chest pain, shortness of breath. Denies fevers/chills. Denies dysuria/hematuria. As per EMR, patient was last evaluated in our facility in May 2017 for alcohol intoxication. Prior evaluations in 2017 included GI and general surgery consults which noted scrotal swelling 2/2 to ascites as well as an admission for sepsis 2/2 to spontaneous bacterial peritonitis. NKDA Surgical: denies Social: daily alcohol, denies recreational drug use. Past History - Past Medical History Allergies/Adverse Reactions: Allergies Allergy/AdvReac Type Severity Reaction Status Date / Time No Known Allergies Allergy Verified 09/24/17 17:19 Home Medications: Ambulatory Orders Albuterol Sulfate Inhaler - [Ventolin HFA Inhaler -] 2 puff IH Q4H PRN #1 inhaler 02/15/17 Ferrous Sulfate [Feosol] 325 mg PO DAILY #30 tab 02/15/17 Fluticasone/Salmeterol [Advair Hfa 230-21 Mcg Inhaler] 2 puff IH BID #1 hfa.aer.ad 02/15/17 Folic Acid 1 mg PO DAILY #30 tablet 02/15/17 Furosemide [Lasix -] 40 mg PO BID@0600,1400 #60 tablet 02/15/17 Lactobacillus Combination No.4 [Probiotic] 1 each PO DAILY #30 capsule 02/15/17 Lactulose (Oral Use) [Cephulac -] 30 gm PO QID #120 dose 02/15/17 Lidocaine 5% Patch [Lidoderm Patch -] 1 patch TP DAILY #5 patch 02/15/17 Nadolol [Corgard -] 40 mg PO DAILY #30 tablet 02/15/17 Pantoprazole Sodium [Protonix] 40 mg PO DAILY #30 tablet. 02/15/17 Potassium Chloride [K-Dur -] 20 meq PO DAILY #3 tablet.er 02/15/17 Spironolactone [Aldactone -] 75 mg PO BID #60 tablet 02/15/17 Tamsulosin HCl [Flomax] 0.4 mg PO HS #30 cap.er.24h 02/15/17 Anemia: No Asthma: No Cancer: No Cardiac Disorders: No CVA: No COPD: No CHF: No DVT: No Dementia: No Diabetes: No Dialysis: No GI Disorders: Yes (GI BLEED, SBO) Disorders: No HTN: Yes Hypercholesterolemia: No Liver Disease: Yes (HEPATITS C,cirrhosis) Psychiatric Problems: Yes (anxiety) Seizures: No Thyroid Disease: No - Surgical History Abdominal Surgery: Yes (GI BLEED/HERNIA, Partial SBO resection) Appendectomy: No Cardiac Surgery: No Cholecystectomy: No Lung Surgery: No Neurologic Surgery: Yes Orthopedic Surgery: No - Immunization History Immunization Up to Date: Yes - Suicide/Smoking/Psychosocial Hx Smoking Status: Yes Smoking History: Never smoked Have you smoked in the past 12 months: No Number of Cigarettes Smoked Daily: 3 If you are a former smoker, when did you quit?: 10yrs Information on smoking cessation initiated: Yes 'Breaking Loose' booklet given: 09/24/17 Hx Alcohol Use: No Drug/Substance Use Hx: No Substance Use Type: Alcohol, Heroin Hx Substance Use Treatment: (unobtainable) Review of Systems - Review of Systems Constitutional: No: Chills, Fever Respiratory: No: Cough, Shortness of Breath, Stridor, Wheezing Cardiac (ROS): Yes: Edema. No: Chest Pain, Lightheadedness, Palpitations, Syncope ABD/GI: No: Constipated, Diarrhea, Nausea, Vomiting, Abdominal cramping : No: Burning, Dysuria Integumentary: Yes: Lesions *Physical Exam - Vital Signs Last Vital Signs Temp Pulse Resp BP Pulse Ox 98.4 F 97 H 18 132/77 100 09/24/17 17:20 09/24/17 17:20 09/24/17 17:20 09/24/17 17:20 09/24/17 17:20 - Physical Exam Comments: 09/24/17 22:08 Alert, obese, verbal S1/S2, Lungs CLTA B/L RLE erythema, multiple ulcers, weeping, purulent malodorus discharge, 2+ DP pulses - B/L Distended, ascitic abdomen, w/caput medusae Unilateral R sided testicular edema with palpaple fluid collection, non-tender, no erythema Extremity: positive: Other (Multiple RLE weeping ulcers, Stage III ulcer measuring 7x7 cm on R medial-dorsal surface with purulent discharge) Heart Score/ECG Review - Electrocardiogram EKG: Normal - Age Age: 45-65 - Risk Factors Risk Factors Heart Score: Yes Smoking History, Yes Hx Obesity Based on the list above the patient has:: 1-2 risk factors - ECG Intrepretation Rhythm: Regular Rhythm - [place]: Normal - ECG Impressions Normal ECG: Yes Non-specific ST Elevation: No Ischemic Changes: No ED Treatment Course - LABORATORY CBC & Chemistry Diagram: 09/24/17 18:15 09/24/17 18:15 Medical Decision Making - Medical Decision Making 09/24/17 19:50 47 year old male presents with unilateral testicular edema and RLE wound. Intermittently tachycardic, other VS stable. Malodorous, purulent wound + ascitic abdomen on PE. Suspect pseudomonas infection. Will obtain scrotal U/S , RLE wound culture. Likely disposition admission. Awaiting wound culture but given clinical presentation strong suspicion for Pseudomonas. Will start patient on Vanc/Zoysn. K+ 2.9 Mg pending Wet read of scrotal U/S shows hypoechoic fluid collection of R john-scrotum. Good flow- no likely torsion Formal U/S read negative for hydrocele, shows large fluid filled collection from right inguinal canal 09/24/17 22:36 Mg 2.0 - patient declining IV replacement. Will give PO replacement and recheck K+ 09/24/17 22:40 Patient admitted to inpatient medicine service for further evaluation. Patient counseled on POC. Amenable to admission. *DC/Admit/Observation/Transfer Diagnosis at time of Disposition: Ascites - Discharge Dispostion Condition at time of disposition: Fair Decision to Admit order: Yes - Referrals - Patient Instructions - Post Discharge Activity
[2017-09-24 18:23] LABS: BASO % 0.5 % (0-2.0); EOS % 1.2 % (0-4.5); HEMATOCRIT 24.2 % (35.4-49); HEMOGLOBIN 8.1 GM/dL (11.7-16.9); LYMPH % 11.4 % (8-40); MCH 26.7 pg (25.7-33.7); MCHC 33.4 g/dl (32.0-35.9); MEAN CELL VOLUME 80.1 fl (80-96); MEAN PLT VOLUME 6.7 fl (7.5-11.1); MONO % 10.4 % (3.8-10.2); NEUT % 76.5 % (42.8-82.8); RBC 3.02 M/mm3 (4.00-5.60); RDW 17.7 % (11.9-15.9); WHITE BLOOD COUNT 7.1 K/mm3 (4.0-10.0)
[2017-09-24 18:51] LABS: ALBUMIN 2.4 g/dl (3.4-5.0); ALK PHOS 176 U/L (45-117); ANION GAP 8 (8-16); BILIRUBIN,TOTAL 2.7 mg/dL (0.2-1.0); BLOOD UREA NITROGEN 5 mg/dL (7-18); CALCIUM 7.6 mg/dL (8.5-10.1); CHLORIDE 104 mmol/L (98-107); CO2 30 mmol/L (21-32); CREATININE 0.6 mg/dL (0.7-1.3); GLUCOSE,RANDOM 112 mg/dL (74-106); SGOT/AST 46 U/L (15-37); SGPT/ALT 22 U/L (12-78); SODIUM 142 mmol/L (136-145); TOT PROT 7.2 g/dl (6.4-8.2)
[2017-09-24 18:53] LABS: POTASSIUM 2.9 mmol/L (3.5-5.1)
[2017-09-24] MEDS ORDERED: VANCOMYCIN 1,000 MG in DEXTROSE 5%-WATER - 250 ML IVPB ONE (19:12)
[2017-09-24] MEDS ORDERED: PIPERACILLIN/TAZOB 4.5 GM 4.5 GM in DEXTROSE 5%-WATER 100 ML IVPB ONE (19:12)
[2017-09-24 19:15] LABS: PLATELET COUNT 39 K/MM3 (134-434); PLATELET ESTIMATE DECREASED
--- NOTE | 2017-09-24 19:31 | PDOC ---
Attending Attestation - Resident Resident Name: AngelIza - ED Attending Attestation I have performed the following: I have examined & evaluated the patient, The case was reviewed & discussed with the resident, I agree w/resident's findings & plan, Exceptions are as noted - HPI HPI: 09/24/17 19:27 The patient is a 47 year old male, with a significant past medical history of alcohol abuse, cirrhosis, ascites, esophageal varices, umbilical hernia s/p small bowel resection, and chronic right leg wound, who presents to the emergency department with, right lower extremity pain and testicular swelling. As per patient, he has an ulcer on his right lower extremity which was treated at [facility] a month ago with unknown medications. He describes his scrotal swelling to be similar to his baseline but, now has associated itching and a burning pain. Pt is a poor historian. He denies any recent fevers, chills, headache or dizziness. He denies any recent nausea, vomit, diarrhea or constipation. He denies any recent chest pain or shortness of breath. He denies any recent dysuria, frequency, urgency or hematuria. Allergies: NKA Past surgical history: None reported. Social History: Alcohol abuse. Smoker. Denies recreational drug use. - Physicial Exam PE: 09/24/17 19:29 agree with resident exam - Medical Decision Making 09/24/17 19:29 47yo M hx etoh abuse, chronic RLE wound presents with scrotal edema and RLE pain. RLE with multiple malodorous ulcers that appear infected. Pt was on outpt PO abx which he has failed. Will cover with Vanc/Zosyn. Scrotal edema likely 2/ 2 ESLD cirrhosis. Pt will need admission for management of infected wounds. 09/24/17 19:56 Potassium 2.9. Mg normal. KCl ordered IV US pending Pt covered with van/zosyn Pt signed out to overnight attending for further mgmt Heart Score/ECG Review #1 09/24/17 19:36 Twelve-lead EKG was performed and reviewed by me. Normal sinus rhythm, rate 76. Normal axis and intervals. No ST elevations.
[2017-09-24] MEDS ORDERED: KCL 10 MEQ IVPB 10 MEQ/100 ML INFUS.BAG IVPB ONE (20:05)
[2017-09-24] MEDS ORDERED: PIPERACILLIN/TAZOB 4.5 GM 4.5 GM/100 ML BAG IVPB ONE (20:06)
[2017-09-24] MEDS ORDERED: VANCOMYCIN 1 GRAM (PRE-DOCKED) 1,000 MG/250 ML BAG IVPB ONE (20:07)
[2017-09-24] MEDS: KCL 10 MEQ IVPB 10 MEQ/100 ML INFUS.BAG IVPB SCH ×2 (20:58→22:51)
[2017-09-24] MEDS ORDERED: IBUPROFEN 800 MG/8 ML IJ IVPB ONE ×2 (21:12→21:21)
[2017-09-24] MEDS ORDERED: oxyCODONE HCL 5 MG TABLET PO ONE (21:25)
[2017-09-24] MEDS ORDERED: oxyCODONE HCL 5 MG TABLET ONE (21:27)
[2017-09-24] MEDS ORDERED: POTASSIUM CHLORIDE TABS 20 MEQ TABLET.ER (FP) PO ONE ×2 (22:06→22:31)
--- NOTE | 2017-09-24 22:16 | PN ---
Teaching Attending Note Name of Resident: Benita Shepard ATTENDING PHYSICIAN STATEMENT I saw and evaluated the patient. I reviewed the resident's note and discussed the case with the resident. I agree with the resident's findings and plan as documented. SUBJECTIVE: Patient is a 47 year old man with a PMH of liver cirrhosis, ascites, hepatitis C disease, tobacco use and esophageal varices due to ETOH abuse, umbilical hernia s/p repair, small bowel resection and chronic RLE wounds who presents with complaints of back pain, RLE pain and testicular swelling. Says all of these problems are chronic but he became especially concerned about his R leg because of burning pain over the last 48 hours. Does daily dressing changes at home. Evaluation at [facility] 2-3 months previous with debridement. OBJECTIVE: Alert. Vital Signs Period Temp Pulse Resp BP Sys/Choi Pulse Ox Last 24 Hr 98.1 F-98.5 F 92-116 18-20 120-132/77-84 97-100 HEENT: No Jaundice, eye redness or discharge, PERRLA, EOMI. Normocephalic, atraumatic. External ears are normal and hearing is grossly intact. No nasal discharge. Neck: Supple, nontender. No palpable adenopathy or thyromegaly. No JVD Chest: Good effort. Clear to auscultation and percussion. Heart: Regular. No S3, rub or murmur Abdomen: Distended - ascites with prominent veins; soft, nontender and no HSM. No rebound or guarding. Normoactive bowel sounds. Ext: Peripheral pulses intact. Right leg ulcers with foul smelling discharge. Scrotal edema - nontender. Leg edema. Skin: Warm and dry. No petechiae, rash or ecchymosis. Neuro: Alert. Oriented x3. CN 2-12 grossly intact. No tremors or asterexis; Sensation grossly intact in all four extremities and DTR are symmetric. Current Medications Generic Name Dose Route Start Last Admin Trade Name Freq PRN Reason Stop Dose Admin Potassium Chloride 10 meq in 100 mls @ 100 mls/hr 09/24/17 19:45 09/24/17 20: 58 Potassium Chloride 10 Meq Premix Ivpb - IVPB 09/24/17 22:44 Not Given Q60M [facility] Home Medications Medication Instructions Recorded Albuterol Sulfate Inhaler - 2 puff IH Q4H PRN #1 inhaler 02/15/17 [Ventolin HFA Inhaler -] Ferrous Sulfate [Feosol] 325 mg PO DAILY #30 tab 02/15/17 Fluticasone/Salmeterol [Advair Hfa 2 puff IH BID #1 hfa.aer.ad 02/15/17 230-21 Mcg Inhaler] Folic Acid 1 mg PO DAILY #30 tablet 02/15/17 Furosemide [Lasix -] 40 mg PO BID@0600,1400 #60 tablet 02/15/17 Lactobacillus Combination No.4 1 each PO DAILY #30 capsule 02/15/17 [Probiotic] Lactulose (Oral Use) [Cephulac -] 30 gm PO QID #120 dose 02/15/17 Lidocaine 5% Patch [Lidoderm Patch 1 patch TP DAILY #5 patch 02/15/17 -] Nadolol [Corgard -] 40 mg PO DAILY #30 tablet 02/15/17 Pantoprazole Sodium [Protonix] 40 mg PO DAILY #30 tablet.dr 02/15/17 Potassium Chloride [K-Dur -] 20 meq PO DAILY #3 tablet.er 02/15/17 Spironolactone [Aldactone -] 75 mg PO BID #60 tablet 02/15/17 Tamsulosin HCl [Flomax] 0.4 mg PO HS #30 cap.er.24h 02/15/17 Abnormal Lab Results 09/24/17 09/24/17 18:15 18:15 RBC 3.02 L Hgb 8.1 L Hct 24.2 L D RDW 17.7 H Plt Count 39 L D MPV 6.7 L Monocytes % 10.4 H Potassium 2.9 L* D BUN 5 L Creatinine 0.6 L Random Glucose 112 H D Calcium 7.6 L Total Bilirubin 2.7 H AST 46 H Alkaline Phosphatase 176 H Albumin 2.4 L ASSESSMENT AND PLAN: 1. Chronic liver disease with cirrhosis and ascites - Likely due to ETOH though he also has hep C disease. Anemia, low platelets, evidence of malnutrition, elevated LFTs appear, and ascites appear to be sequelae of chronic liver disease. Low K may signal poor intake and renal wasting common in alcoholism. No evidence of peritonitis and paracentesis is not indicated at this time. Will replenis K orally and IV and avoid all factors that may precipitate hepatic encephalopathy. NH3 is high - will continue lactulose and add rifaximin. Trend LFTs. Low back pain is chronic. Will review lumbosacral xray and use small dose of oxycodone for pain control 2. Right leg ulcers - Will get wound cultures, consult wound care and treat with IV vancomycin. 3. Scrotal swelling - May be due to fluid retention related to liver disease. Results of sonogram pending. Scrotal elevation and urology consult. 4. Hypoalbuminemia - Possibly due to combined effects of malnutrition, liver disease and inflammation associated with comorbid chronic conditions. Will ensure adequate dietary protein intake, rule out proteinuria and consult tree care foreman. 5. Anemia - Likely multifactorial. Will do basic anemia work up including serial stool guaiacs, reticulocyte count and iron studies. Would benefit from Procrit therapy once iron replete. 6. Obesity - Will provide patient all the necessary assistance , counseling and positive reinforcement to facilitate weight loss. Consult tree care foreman. 7. Alcohol abuse - Implement [facility] alcohol withdrawal protocol and fall precautions. Treat with thiamine and folic acid and monitor electrolytes (Ca,Mg, K,P). Beef Pluck Trimmer patient about abstaining from alcohol and refer to alcohol detox upon discharge. 8. DVT prophylaxis - Heparin 5000u sq tid. 9. Advance directives - Full code
--- NOTE | 2017-09-24 23:13 | HP ---
CHIEF COMPLAINT:right lower leg pain, low back pain PCP: HISTORY OF PRESENT ILLNESS: Patient is a 47 year old male with past medical history of cirrhosis, ascites and esophageal varices secondary to Alcohol abuse, umbilical hernia s/p small bowel resection, and chronic right leg wound, presented with gradual worsening of the right leg wound and low back pain. Patient has been complaining of low back pain for the past 3 months, he has been taking oxycodone regularly for pain. Three days ago, patient ran out of oxycodone and noted pain to have worsened. The chronic leg wound was known to have started a year ago. Two months prior, patient noted wound to have worsened, was admitted at our institution and given IV antibiotics. Three days prior, patient noted to have worsened leg pain as well. Patient also complains of abdominal swelling. During his last admission, paracentesis was done which relieved the swelling, and patient was given Lasix and Spironolactone as take home medications. Two weeks prior, patient noted abdomen to be swelling again. ER course was notable for: (1)Hgb 8.1, Plt 39 (2)K 2.9, GGT 633, albumin 2.4, (3)Ammonia 74.44 Recent Travel:denies any recent travel PAST MEDICAL HISTORY: Cirrhosis Ascites Esophageal varices Alcohol abuse Umbilical hernia PAST SURGICAL HISTORY: Small bowel resection Social History: Smokin stick per day Alcohol:multiple drinks/day Drugs: previous IVDU; stopped 8 years ago Family History: Allergies No Known Allergies Allergy (Verified 09/24/17 17:19) HOME MEDICATIONS: Home Medications Medication Instructions Recorded Albuterol Sulfate Inhaler - 2 puff IH Q4H PRN #1 inhaler 02/15/17 [Ventolin HFA Inhaler -] Ferrous Sulfate [Feosol] 325 mg PO DAILY #30 tab 02/15/17 Fluticasone/Salmeterol [Advair Hfa 2 puff IH BID #1 hfa.aer.ad 02/15/17 230-21 Mcg Inhaler] Folic Acid 1 mg PO DAILY #30 tablet 02/15/17 Furosemide [Lasix -] 40 mg PO BID@0600,1400 #60 tablet 02/15/17 Lactobacillus Combination No.4 1 each PO DAILY #30 capsule 02/15/17 [Probiotic] Lactulose (Oral Use) [Cephulac -] 30 gm PO QID #120 dose 02/15/17 Lidocaine 5% Patch [Lidoderm Patch 1 patch TP DAILY #5 patch 02/15/17 -] Nadolol [Corgard -] 40 mg PO DAILY #30 tablet 02/15/17 Pantoprazole Sodium [Protonix] 40 mg PO DAILY #30 tablet.dr 02/15/17 Potassium Chloride [K-Dur -] 20 meq PO DAILY #3 tablet.er 02/15/17 Spironolactone [Aldactone -] 75 mg PO BID #60 tablet 02/15/17 Tamsulosin HCl [Flomax] 0.4 mg PO HS #30 cap.er.24h 02/15/17 REVIEW OF SYSTEMS CONSTITUTIONAL: Absent: fever, chills, diaphoresis, generalized weakness, malaise, loss of appetite, weight change HEENT: Absent: rhinorrhea, nasal congestion, throat pain, throat swelling, difficulty swallowing, mouth swelling, ear pain, eye pain, visual changes CARDIOVASCULAR: Absent: chest pain, syncope, palpitations, irregular heart rate, lightheadedness , peripheral edema RESPIRATORY: Absent: cough, shortness of breath, dyspnea with exertion, orthopnea, wheezing, stridor, hemoptysis GASTROINTESTINAL:+abdominal pain, abdominal distension Absent: nausea, vomiting, diarrhea, constipation, melena, hematochezia GENITOURINARY: Absent: dysuria, frequency, urgency, hesitancy, hematuria, flank pain, genital pain MUSCULOSKELETAL: +back pain, +leg pain, R Absent: myalgia, arthralgia, joint swelling, neck pain SKIN: Absent: rash, itching, pallor HEMATOLOGIC/IMMUNOLOGIC: Absent: easy bleeding, easy bruising, lymphadenopathy, frequent infections ENDOCRINE: Absent: unexplained weight gain, unexplained weight loss, heat intolerance, cold intolerance NEUROLOGIC: Absent: headache, focal weakness or paresthesias, dizziness, unsteady gait, seizure, mental status changes, bladder or bowel incontinence PSYCHIATRIC: Absent: anxiety, depression, suicidal or homicidal ideation, hallucinations. PHYSICAL EXAMINATION Vital Signs - 24 hr 09/24/17 09/24/17 09/24/17 17:20 21:03 21:33 Temperature 98.4 F 98.5 F 98.1 F Pulse Rate 97 H Pulse Rate [ 92 H 116 H Apical] Respiratory 18 20 18 Rate Blood Pressure 132/77 Blood Pressure 132/84 120/82 [Right Arm] O2 Sat by Pulse 100 97 Oximetry (%) 09/24/17 22:55 Temperature 98 F Pulse Rate Pulse Rate [ 72 Apical] Respiratory 16 Rate Blood Pressure Blood Pressure 130/73 [Right Arm] O2 Sat by Pulse 99 Oximetry (%) GENERAL: Awake, alert, and fully oriented, in no acute distress. HEAD: Normal with no signs of trauma. EYES: PERRLA, EOMI, sclera anicteric, conjunctiva clear. EARS, NOSE, THROAT: Ears normal, nares patent, oropharynx clear without exudates. Moist mucous membranes. NECK: Normal range of motion, supple without lymphadenopathy, JVD, or masses. LUNGS: Breath sounds equal, clear to auscultation bilaterally. HEART: Regular rate and rhythm, normal S1 and S2 without murmur, rub or gallop. ABDOMEN: Soft, NABS, +tenderness on RUQ/RLQ, +distended, +caput medusae, + midline hernia surgical scar MUSCULOSKELETAL: Normal range of motion at all joints. No bony deformities or tenderness. No CVA tenderness. UPPER EXTREMITIES: 2+ pulses, warm, well-perfused. No cyanosis. No clubbing. No peripheral edema. LOWER EXTREMITIES: 2+ pulses, warm, well-perfused. No calf tenderness. No peripheral edema. NEUROLOGICAL: Cranial nerves II-XII intact. Normal speech. Normal gait. PSYCHIATRIC: Cooperative. Good eye contact. Appropriate mood and affect. SKIN: LLE - Warm, dry, normal turgor; RLE - +erythema, multiple ulcers, weeping , purulent malodorus discharge, 2+ DP pulses - B/L Laboratory Results - last 24 hr 09/24/17 09/24/17 09/24/17 18:15 18:15 18:15 WBC 7.1 RBC 3.02 L Hgb 8.1 L Hct 24.2 L D MCV 80.1 MCH 26.7 MCHC 33.4 RDW 17.7 H Plt Count 39 L D MPV 6.7 L Absolute Neuts (auto) 5.5 Neutrophils % 76.5 Lymphocytes % 11.4 D Monocytes % 10.4 H Eosinophils % 1.2 D Basophils % 0.5 D Nucleated RBC % 0 Platelet Estimate Decreased Platelet Comment No clumping noted Sodium 142 Potassium 2.9 L* D Chloride 104 Carbon Dioxide 30 D Anion Gap 8 BUN 5 L Creatinine 0.6 L Creat Clearance w eGFR > 60 Random Glucose 112 H D Calcium 7.6 L Magnesium 2.0 Total Bilirubin 2.7 H AST 46 H ALT 22 D Alkaline Phosphatase 176 H Total Protein 7.2 Albumin 2.4 L CBC, BMP 09/24/17 18:15 09/25/17 01:45 ASSESSMENT/PLAN: Patient is a 47 year old male with past medical history of cirrhosis, ascites and esophageal secondary to Alcohol abuse, umbilical hernia s/p small bowel resection, and chronic right leg wound, presented with gradual worsening of the right leg wound and low back pain. #Chronic Liver Disease: Secondary to alcohol abuse; Patient has history of ascites, cirrhosis and esophageal varices -Patient has HCV, anemia, low platelet count, elevated LFTs, ascites. -Sodium and fluid intake restriction -Will continue Spironolactone and start Furosemide 40 mg IV -Ammonia at 74.44. Will continue Lactulose and add Rifaximin 550mg BID. #Chronic R leg wound: RLE - +erythema, multiple ulcers, weeping, purulent malodorus discharge, 2+ DP pulses - B/L -wound culture pending -IV vancomycin started pending culture. -Proper wound care. #Alcohol abuse -CIWA protocol -Ativan protocol started. -Fall precaution. #Hypokalemia: K 2.9; may be secondary to alcoholism -KCl 40 meq PO BID x 4 doses started. -will monitor K #Low back pain -Lumbosacral Xray ordered. -Given Oxycodone 5mg q6h PRN for pain and Tylenol 650 mg q6 PRN. #Scrotal swelling -probably related to chronic liver disease. -Scrotal ultrasound pending. -Dr. Mancuso consult appreciated. #FEN -Not on any standing fluids -hypokalemia, KCl 40 meq BIDx4 doses given, routine bmp monitoring -sodium restricted diet #Prophylaxis -Heparin 5000 units sq tid #Disposition -admit to med-surg -full code Visit type - Emergency Visit Emergency Visit: Yes ED Registration Date: 09/24/17 Care time: The patient presented to the Emergency Department on the above date and was hospitalized for further evaluation of their emergent condition. - New Patient This patient is new to me today: Yes Date on this admission: 09/25/17 - Critical Care Critical Care patient: No Hospitalist Screening - Colonoscopy Questionnaire Colonoscopy Questionnaire: Colonoscopy Questionnaire - Patient: 50 - 75 years old and never had a screening colonoscopy: Unknown History of colon or rectal polyps, or CA: Unknown History of IBD, Crohn's disease or UC: Unknown History of abdominal radiation therapy as a child: Unknown - Relative: 1 with colon or rectal CA, or polyps at age 60 or younger: Unknown Colon or rectal CA diagnosed at age 45 or younger: Unknown Multiple relatives with colon or rectal CA: Unknown - Outcome: Screening Result: Negative Screen
[2017-09-25] MEDS ORDERED: ALBUTEROL SO4 8 GM HFA INHALER IH PRN (00:05)
[2017-09-25] MEDS: oxyCODONE HCL 5 MG TABLET PO PRN ×4 (00:17→19:37)
[2017-09-25 00:40] VITALS: BMI 31.0
[2017-09-25] MEDS ORDERED: chlordiazePOXIDE HCL 25 MG CAPSULE PO PRN ×2 (02:10→09:14)
[2017-09-25] MEDS ORDERED: VANCOMYCIN 1,250 MG in DEXTROSE 5%-WATER - 250 ML IVPB SCH (02:30)
[2017-09-25] MEDS ORDERED: chlordiazePOXIDE HCL 25 MG CAPSULE PO SCH (05:00)
[2017-09-25] MEDS: ACETAMINOPHEN 325 MG TABLET (FP) PO PRN ×2 (05:58→12:50)
[2017-09-25] MEDS ORDERED: HEPARIN NA (PORCINE) 5,000 UNITS/ML 1ML VIAL SQ SCH (06:00)
[2017-09-25 07:32] LABS: HEMATOCRIT 22.5 % (35.4-49); HEMOGLOBIN 7.6 GM/dL (11.7-16.9); MCHC 33.6 g/dl (32.0-35.9); MEAN CELL VOLUME 80.5 fl (80-96); MEAN PLT VOLUME 7.4 fl (7.5-11.1); PLATELET COUNT 37 K/MM3 (134-434); RDW 18.3 % (11.9-15.9); WHITE BLOOD COUNT 4.5 K/mm3 (4.0-10.0)
[2017-09-25 08:06] LABS: CHLORIDE 105 mmol/L (98-107); POTASSIUM 3.2 mmol/L (3.5-5.1); SODIUM 141 mmol/L (136-145)
[2017-09-25 08:11] LABS: ANION GAP 8 (8-16); BLOOD UREA NITROGEN 5 mg/dL (7-18); CALCIUM 7.7 mg/dL (8.5-10.1); CO2 28 mmol/L (21-32); CREATININE 0.4 mg/dL (0.7-1.3); GLUCOSE,RANDOM 99 mg/dL (74-106); PHOSPHOROUS 2.6 mg/dL (2.5-4.9)
--- NOTE | 2017-09-25 09:21 | PN ---
Physical Exam: SUBJECTIVE: Patient seen and examined at the bedside. Awake, alert. States he drinks 4 beers per day. OBJECTIVE: exam findings mild odor from right leg noted - dressing to be removed start on librium: suspect pt will go into acute w/drawal very soon. mild tremors at rest, smells of alcohol, agitated/uncooperative CIWA:9 Vital Signs Period Temp Pulse Resp BP Sys/Choi Pulse Ox Last 24 Hr 98 F-99.6 F 72-116 16-22 118-134/69-89 97-100 GENERAL: The patient is awake, alert-agitated HEAD: Normal with no signs of trauma. EYES: PERRL, extraocular movements intact, sclera anicteric, conjunctiva clear. No ptosis. ENT: Ears normal, nares patent, oropharynx clear without exudates, moist mucous membranes. NECK: Trachea midline, full range of motion, supple. LUNGS: Breath sounds equal, clear to auscultation bilaterally HEART: Regular rate and rhythm ABDOMEN: large obese abdomen, hx of ascites, had multiple procedures of fluid removal 2/2 ascites EXTREMITIES: right leg cellulitis with purulent drainage-odorous, leg red and inflammed, smells of psudamonas, ulcers with purulent drainage. NEUROLOGICAL: Normal speech PSYCH: Normal mood, normal affect. SKIN: Warm, dry, normal turgor, no rashes or lesions noted Laboratory Results - last 24 hr 09/24/17 09/24/17 09/24/17 18:15 18:15 18:15 WBC 7.1 RBC 3.02 L Hgb 8.1 L Hct 24.2 L D MCV 80.1 MCH 26.7 MCHC 33.4 RDW 17.7 H Plt Count 39 L D MPV 6.7 L Absolute Neuts (auto) 5.5 Neutrophils % 76.5 Lymphocytes % 11.4 D Monocytes % 10.4 H Eosinophils % 1.2 D Basophils % 0.5 D Nucleated RBC % 0 Platelet Estimate Decreased Platelet Comment No clumping noted Sodium 142 Potassium 2.9 L* D Chloride 104 Carbon Dioxide 30 D Anion Gap 8 BUN 5 L Creatinine 0.6 L Creat Clearance w eGFR > 60 Random Glucose 112 H D Calcium 7.6 L Phosphorus Magnesium 2.0 Total Bilirubin 2.7 H AST 46 H ALT 22 D Alkaline Phosphatase 176 H Total Protein 7.2 Albumin 2.4 L 09/25/17 09/25/17 09/25/17 01:45 06:15 06:15 WBC 4.5 RBC 2.80 L Hgb 7.6 L Hct 22.5 L MCV 80.5 MCH 27.0 MCHC 33.6 RDW 18.3 H Plt Count 37 L MPV 7.4 L D Absolute Neuts (auto) Neutrophils % Lymphocytes % Monocytes % Eosinophils % Basophils % Nucleated RBC % Platelet Estimate Platelet Comment Sodium 141 Potassium 3.1 L 3.2 L Chloride 105 Carbon Dioxide 28 Anion Gap 8 BUN 5 L Creatinine 0.4 L Creat Clearance w eGFR > 60 Random Glucose 99 Calcium 7.7 L Phosphorus 2.6 Magnesium 2.0 Total Bilirubin AST ALT Alkaline Phosphatase Total Protein Albumin Active Medications Generic Name Dose Route Start Last Admin Trade Name Freq PRN Reason Stop Dose Admin Acetaminophen 650 mg 09/25/17 05:49 09/25/17 05:58 Tylenol - PO 650 mg Q6H PRN Administration Fever Or Pain Albuterol Sulfate 2 puff 09/25/17 00:05 Ventolin Hfa Inhaler - IH Q4H PRN Dyspnea Chlordiazepoxide HCl 50 mg 09/25/17 11:00 Librium - PO 09/26/17 05:01 [id number] KENDRICK Chlordiazepoxide HCl 25 mg 09/26/17 11:00 Librium - PO 09/27/17 05:01 [id number] KENDRICK Chlordiazepoxide HCl 15 mg 09/27/17 11:00 Librium - PO 09/28/17 05:01 [id number] KENDRICK Chlordiazepoxide HCl 25 mg 09/25/17 09:14 Librium - PO 09/28/17 09:13 Q4H PRN WITHDRAWAL(CONT SUBST) Chlordiazepoxide HCl 10 mg 09/28/17 11:00 Librium - PO 09/29/17 05:01 [id number] KENDRICK Ferrous Sulfate 325 mg 09/25/17 10:00 Feosol - PO DAILY [facility] Folic Acid 1 mg 09/25/17 10:00 Folic Acid - PO DAILY [facility] Furosemide 40 mg 09/25/17 10:00 Lasix Injection - IVPB DAILY [facility] Vancomycin HCl 1,250 mg/ 250 mls @ 166.667 mls/hr 09/25/17 02:30 Dextrose IVPB Q12H [facility] Protocol Vancomycin HCl 1,250 mg/ 250 mls @ 166.667 mls/hr 09/25/17 10:00 Dextrose IVPB 09/25/17 11:29 ONCE ONE Lactobacillus Acidophilus 1 tab 09/25/17 10:00 Bacid - PO DAILY [facility] Lactulose 30 gm 09/25/17 10:00 Cephulac (Oral Use) PO QID KENDRICK Lidocaine 1 patch 09/25/17 10:00 Lidoderm Patch - TP DAILY [facility] Miscellaneous 1 each 09/25/17 22:00 Lidoderm Patch Removal MC DAILY@2200 KENDRICK Nadolol 40 mg 09/25/17 10:00 Corgard - PO DAILY [facility] Non-Formulary Medication 2 puff 09/25/17 10:00 Fluticasone/Salmeterol [Advair Hfa 230-21 Mcg Inhaler] IH BID [facility] Oxycodone HCl 5 mg 09/25/17 00:07 09/25/17 05:39 Roxicodone - PO 5 mg Q6H PRN Administration PAIN LEVEL 6-10 Pantoprazole Sodium 40 mg 09/25/17 10:00 Protonix - PO DAILY [facility] Potassium Chloride 40 meq 09/25/17 10:00 K-Dur - PO 09/26/17 22:01 BID [facility] Rifaximin 550 mg 09/25/17 10:00 Xifaxan - PO BID [facility]EN[facility] Spironolactone 75 mg 09/25/17 10:00 Aldactone - PO BID [facility] Tamsulosin HCl 0.4 mg 09/25/17 22:00 Flomax - PO [facility] ASSESSMENT/PLAN: Patient is a 46 year old male with a significant past medical history of chronic ETOH abuse, heroin abuse, esophageal varicies, liver cirrhosis, small bowel obstruction, hepatitis C and right leg cellulitis for a chronic non healing wound. He was admitted on 09/24/17 for altered mental status and right leg wound infection with purulent drainage and worsening burning pain over the last 48 hours. He is also noted to have scrotal swelling. Patient admits to drinking approximately 4-5 beers every night with heroin use~ 5 bags. Imaging: Scrotal u/s no torsion/acute process seen Psyche: Alcohol abuse: Started on Librium protocol. History of ETOH abuse with elevated CIWA score. Methadone started by detox physician. 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 History of ascites with multiple paracentesis. IR consulted for possible paracentesis, however platelets are 37 currently. On Lasix IV 40mg, Spironolactone. Corgard, Rifaximin, Lactulose. Hyperammonemia: elevated ammonia levels on admission at 74.44. ON Lactulose, Rifaximin 550mg BID. Repeat ammonia levels in a.m. Vascular Right leg wound: Odorous, painful right lower extremity with multiple open ulcerations. Wound culture pending. IV antibiotics per ID. Daily wound care. Electrolyte imbalance: Hypokalemia: repleted, likely in the setting of chronic ETOH use. Monitor and replete. Back Pain: Back lumbar xray ordered, back pain likely secondary to heroin use and acute withdrawal. : Scrotal Swelling, ultrasound w/o evidence of torsion. urology consulted. Hematology: Anemia: monitor in the setting of abstinence of ETOH. Thrombocytopenia: bleeding risk, no anticoagulation. Monitor in the setting of abstinence for ETOH. F.E.N. Fluids: none needed, tolerating PO Electrolytes: hypok repleted, monitor daily BMP Nutrition; low sodium diet Prophylaxis: DVT: no a/c 2/2 low platelets GI: Protonix Disposition: Pt currently requires inpatient management of his emergent condition and expected LOS is greater than 2 MN Visit type - Emergency Visit Emergency Visit: Yes ED Registration Date: 09/24/17 Care time: The patient presented to the Emergency Department on the above date and was hospitalized for further evaluation of their emergent condition. - New Patient This patient is new to me today: Yes Date on this admission: 09/25/17 - Critical Care Critical Care patient: No - Discharge Referral Referred to [facility] Med P.C.: No
[2017-09-25] MEDS ORDERED: NADOLOL 20 MG TABLET (FP) ONE (09:58)
[2017-09-25] MEDS ORDERED: POTASSIUM CHLORIDE TABS 20 MEQ TABLET.ER (FP) PO SCH (10:00)
[2017-09-25] MEDS ORDERED: LIDOCAINE 5% TOPICAL PATCH TP SCH (10:00)
[2017-09-25] MEDS ORDERED: VANCOMYCIN 1,250 MG in DEXTROSE 5%-WATER - 250 ML IVPB ONE (10:00)
[2017-09-25] MEDS: LACTULOSE 20 GM/30 ML UDC (FOR ORAL USE ONLY) PO SCH ×5 (10:03→22:07)
[2017-09-25] MEDS: FUROSEMIDE 40 MG/4 ML INJECTABLE VIAL IVPB SCH (10:04)
[2017-09-25] MEDS: LACTOBACILLUS ACIDOPHILUS 1 TABLET PO SCH (10:04)
[2017-09-25] MEDS: POTASSIUM CHLORIDE TABS 20 MEQ TABLET.ER (FP) PO SCH ×2 (10:04→22:04)
[2017-09-25] MEDS: LIDOCAINE 5% TOPICAL PATCH TP SCH (10:04)
[2017-09-25] MEDS: FOLIC ACID 1 MG TABLET (FP) PO SCH (10:04)
[2017-09-25] MEDS: SPIRONOLACTONE 25 MG TABLET (FP) PO SCH ×2 (10:04→22:05)
[2017-09-25] MEDS: FERROUS SO4 325 MG TABLET (FP) PO SCH (10:04)
[2017-09-25] MEDS: NADOLOL 40 MG TABLET (FP) PO SCH (10:05)
[2017-09-25] MEDS: RIFAXIMIN 550 MG TABLET (UD) PO SCH ×2 (10:05→22:04)
[2017-09-25] MEDS: PANTOPRAZOLE 40 MG TABLET (FP) PO SCH (10:05)
[2017-09-25] MEDS: chlordiazePOXIDE HCL 25 MG CAPSULE PO SCH ×3 (10:59→22:11)
[2017-09-25] MEDS ORDERED: LORazepam 2 MG/ML SDV VIAL IVPUSH SCH (11:00)
--- NOTE | 2017-09-25 13:09 | CON.ID ---
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) Gastrointestinal: Yes: Ascites, Esophageal Varices, Other (Hepatitis, umbilical hernia) Hepatobiliary: Yes: Cirrhosis, Hepatitis C Psych: Yes: Addictions (alchohol Current, Heroin revcovery) Rheumatology: No: Fibromyalgia Endocrine: Yes: Other (hyponatremia) Dermatology: Yes: Other (rt lower extremity cellulitis) - Past Surgical History Past Surgical History: Yes: Colectomy - Alcohol/Substance Use Hx Alcohol Use: No Number of Drinks Daily: 3 History of Substance Use: reports: Heroin Date of Last Use: 11/14/16 (see tox report) - Smoking History Smoking history: Never smoked Have you smoked in the past 12 months: No Aproximately how many cigarettes per day: 3 If you are a former smoker, when did you quit?: 10yrs - Social History Usual Living Arrangement: Alone Home Medications - Allergies Allergies/Adverse Reactions: Allergies Allergy/AdvReac Type Severity Reaction Status Date / Time morphine Allergy Unverified 09/24/17 23:58 - Home Medications Home Medications: Ambulatory Orders Albuterol Sulfate Inhaler - [Ventolin HFA Inhaler -] 2 puff IH Q4H PRN #1 inhaler 02/15/17 Ferrous Sulfate [Feosol] 325 mg PO DAILY #30 tab 02/15/17 Fluticasone/Salmeterol [Advair Hfa 230-21 Mcg Inhaler] 2 puff IH BID #1 hfa.aer.ad 02/15/17 Folic Acid 1 mg PO DAILY #30 tablet 02/15/17 Furosemide [Lasix -] 40 mg PO BID@0600,1400 #60 tablet 02/15/17 Lactobacillus Combination No.4 [Probiotic] 1 each PO DAILY #30 capsule 02/15/17 Lactulose (Oral Use) [Cephulac -] 30 gm PO QID #120 dose 02/15/17 Lidocaine 5% Patch [Lidoderm Patch -] 1 patch TP DAILY #5 patch 02/15/17 Nadolol [Corgard -] 40 mg PO DAILY #30 tablet 02/15/17 Pantoprazole Sodium [Protonix] 40 mg PO DAILY #30 tablet. 02/15/17 Potassium Chloride [K-Dur -] 20 meq PO DAILY #3 tablet.er 02/15/17 Spironolactone [Aldactone -] 75 mg PO BID #60 tablet 02/15/17 Tamsulosin HCl [Flomax] 0.4 mg PO HS #30 cap.er.24h 02/15/17 Review of Systems - Review of Systems Constitutional: reports: Fever, Other HENT: reports: No Symptoms Neck: reports: No Symptoms Cardiovascular: reports: No Symptoms Respiratory: reports: No Symptoms Gastrointestinal: reports: No Symptoms Genitourinary: reports: No Symptoms Musculoskeletal: reports: Other Integumentary: reports: No Symptoms Neurological: reports: No Symptoms Endocrine: reports: No Symptoms Hematology/Lymphatic: reports: No Symptoms Psychiatric: reports: No Symptoms Physical Exam Vital Signs: Vital Signs Temperature 99.6 F 09/25/17 07:05 Pulse Rate 90 09/25/17 07:05 Respiratory Rate 20 09/25/17 07:05 Blood Pressure 118/69 09/25/17 07:05 O2 Sat by Pulse Oximetry (%) 99 09/25/17 05:00 Constitutional: Yes: Calm, Mild Distress Eyes: Yes: Conjunctiva Clear Cardiovascular: Yes: Regular Rate and Rhythm Respiratory: Yes: Regular, CTA Bilaterally Gastrointestinal: Yes: Soft, Ascites, Other Renal/: Yes: Scrotal Edema, Other Musculoskeletal: Yes: WNL Extremities: Yes: Other (wound infection) Wound/Incision: Yes: Dressing Removed Neurological: Yes: Alert, Oriented Psychiatric: Yes: Alert, Oriented Labs: CBC, BMP 09/25/17 06:15 09/25/17 06:15 Imaging - Results Chest X-ray: Report Reviewed, Image Reviewed Ultrasound: Report Reviewed, Image Reviewed Assessment/Plan Patient is a 46 year old male with a significant past medical history of chronic ETOH abuse, heroin abuse, esophageal varicies, liver cirrhosis, small bowel obstruction, hepatitis C and right leg cellulitis for a chronic non healing wound. He was admitted on 09/24/17 for altered mental status and right leg wound infection with purulent drainage and worsening burning pain over the last 48 hours. He is also noted to have scrotal swelling. Patient admits to drinking approximately 4-5 beers every night with heroin use~ 5 bags. plan scrotal u/s noted wound infection noted on the leg plan will start patient on abx wound care rest as per the team
[2017-09-25] MEDS ORDERED: oxyCODONE HCL 5 MG TABLET PO ONE (13:45)
--- NOTE | 2017-09-25 14:01 | EKG ---
Test Reason : Blood Pressure : / mmHG Vent. Rate : 076 BPM Atrial Rate : 076 BPM P-R Int : 130 ms QRS Dur : 092 ms QT Int : 422 ms P-R-T Axes : 017 059 037 degrees QTc Int : 474 ms NORMAL SINUS RHYTHM NORMAL ECG WHEN COMPARED WITH ECG OF 08-FEB-2017 15:37, QRS DURATION HAS INCREASED Confirmed by BEATRIZ PEÑA MD ([id number]) on 09/25/2017 2:01:29 PM Referred By: Confirmed By:BEATRIZ PEÑA MD
[2017-09-25] MEDS: CEFEPIME HCL/D5W 1 GM/50 ML BAG IVPB SCH ×2 (14:58→17:32)
--- NOTE | 2017-09-25 15:14 | CONSULT ---
Consult Detox [facility] Reason for Current Admission/Consult: alcohol use history - History History of Present Illness: Pt is admitted with cellulitis of lower extremity, "PMH of cirhosis w/ associated ascites and esophageal varices 2/2 to ETOH abuse, small bowel resection". Pt states he drinks about 4-5 beers a day- no h/o seizures or DT's, has had complications of alcohol use as noted above. Pt also states that he has been using 3-4 bags of heroin- inhalation- per day. Says he feels like he is in withdrawal now. States has been in [facility] methadone program in the past and would like to restart methadone treatment after discharge. 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) Gastrointestinal: Yes: Ascites, Esophageal Varices, Other (Hepatitis, umbilical hernia) Hepatobiliary: Yes: Cirrhosis, Hepatitis C Psych: Yes: Addictions (alchohol Current, Heroin revcovery) Rheumatology: No: Fibromyalgia Endocrine: Yes: Other (hyponatremia) Dermatology: Yes: Other (rt lower extremity cellulitis) - Past Surgical History Past Surgical History: Yes: Colectomy - Significant Medical Findings: pt with cellulitis and wound of lower extremity COWS - Scale Resting Pulse: 1= MO 81-100 Sweatin= Chills/Flushing Restless Observation: 1= Difficult to Sit Still Pupil Size: 1= Pupils >than Normal Bone or Joint Aches: 1= Mild Discomfort Runny Nose/ Eye Tearin= Runny Nose/Eyes GI Upset > 30mins: 1= Stomach Cramp Tremor Observation: 2= Slight Tremor Visible Yawning Observation: 0= None Anxiety or Irritability: 2=Irritable/Anxious Goose Flesh Skin: 0=Smooth Skin COWS Score: 12 CIWA Score - CIWA Score Nausea/Vomitin-No Nausea/No Vomiting Muscle Tremors: 2 Anxiety: 2 Agitation: 1-Slight > Activity Paroxysmal Sweats: 1-Minimal Palms Moist Orientation: 0-Oriented Tacttile Disturbances: 0-None Auditory Disturbances: 0-None Visual Disturbances: 0-None Headache: 0-None Present CIWA-Ar Total Score: 6 Assessment Plan - Diagnosis (1) Chronic alcoholism Status: Chronic (2) Opioid dependence Status: Chronic Qualifiers: Substance use status: uncomplicated Qualified Code(s): F11.20 - Opioid dependence, uncomplicated - Plan Plan: pt is on librium detox protocol for alcohol use. Pt has been using heroin and feels like he is in withdrawal now. Will start methadone detox protocol. As soon as there is an anticipated discharge date, please have call- to set up an appointment at the [facility]- methadone program for admission there. pt is aware of this plan and is agreeable and has been at the program earlier. Pt was placed on vistaril and other prn meds, if needed for withdrawal Sx - Medication Detox Regimen/Protocol: Methadone/Librium
[2017-09-25] MEDS ORDERED: MAGNESIUM HYDROX 2400MG/30ML ORAL SUSPENSION 30 ML CUP PO PRN (15:17)
[2017-09-25] MEDS ORDERED: hydrOXYzine PAMOATE 50 MG CAPSULE (FP) PO PRN (15:17)
[2017-09-25] MEDS ORDERED: METHADONE HCL 10 MG TABLET (FOR DETOX USE ONLY) PO ONE (16:15)
[2017-09-25] MEDS ORDERED: METHADONE HCL 10 MG TABLET PO ONE ×2 (16:30→23:00)
[2017-09-25 17:14] LABS: INR 1.67 (0.83-1.09); PROTHROMBIN TIME (PATIENT) 18.9 SEC (9.7-13.0)
[2017-09-25] MEDS: CLINDAMYCIN HCL 150 MG CAPSULE (FP) PO SCH ×2 (17:32→23:16)
[2017-09-25] MEDS ORDERED: LORazepam 1 MG TABLET PO ONE (20:30)
[2017-09-25] MEDS ORDERED: PT OWN MED DRAWER 7, Y5N ONE (21:04)
[2017-09-25] MEDS ORDERED: MELATONIN 5 MG TABLETS PO PRN (22:00)
[2017-09-25] MEDS: TAMSULOSIN HCL 0.4 MG CAP.ER.24H (FP) PO SCH (22:04)
[2017-09-25] MEDS: THIAMINE HCL 100 MG TABLET (FP) PO SCH (22:05)
[2017-09-25] MEDS: LIDOCAINE PATCH REMOVAL MC SCH (22:08)
[2017-09-26] MEDS ORDERED: LORazepam 1 MG TABLET PO ONE (01:00)
[2017-09-26] MEDS: CEFEPIME HCL/D5W 1 GM/50 ML BAG IVPB SCH ×3 (01:09→17:53)
[2017-09-26] MEDS: oxyCODONE HCL 5 MG TABLET PO PRN ×5 (01:33→23:30)
[2017-09-26] MEDS ORDERED: chlordiazePOXIDE HCL 25 MG CAPSULE PO SCH (05:00)
[2017-09-26] MEDS: ACETAMINOPHEN 325 MG TABLET (FP) PO PRN ×2 (05:35→17:18)
[2017-09-26] MEDS: CLINDAMYCIN HCL 150 MG CAPSULE (FP) PO SCH ×4 (05:35→23:29)
[2017-09-26] MEDS: chlordiazePOXIDE HCL 25 MG CAPSULE PO SCH ×4 (05:35→22:41)
[2017-09-26] MEDS ORDERED: NADOLOL 20 MG TABLET (FP) ONE (08:59)
[2017-09-26] MEDS ORDERED: PT OWN MED DRAWER 7, Y5N ONE ×2 (09:00→22:21)
[2017-09-26] MEDS: PANTOPRAZOLE 40 MG TABLET (FP) PO SCH (09:04)
[2017-09-26] MEDS: FOLIC ACID 1 MG TABLET (FP) PO SCH (09:04)
[2017-09-26] MEDS: FERROUS SO4 325 MG TABLET (FP) PO SCH (09:04)
[2017-09-26] MEDS: POTASSIUM CHLORIDE TABS 20 MEQ TABLET.ER (FP) PO SCH ×2 (09:05→22:43)
[2017-09-26] MEDS: NADOLOL 40 MG TABLET (FP) PO SCH (09:05)
[2017-09-26] MEDS: LACTULOSE 20 GM/30 ML UDC (FOR ORAL USE ONLY) PO SCH ×5 (09:05→22:43)
[2017-09-26] MEDS: SPIRONOLACTONE 25 MG TABLET (FP) PO SCH ×2 (09:06→22:43)
[2017-09-26] MEDS: RIFAXIMIN 550 MG TABLET (UD) PO SCH ×2 (09:06→22:44)
[2017-09-26] MEDS: LACTOBACILLUS ACIDOPHILUS 1 TABLET PO SCH (09:06)
[2017-09-26] MEDS: FUROSEMIDE 40 MG/4 ML INJECTABLE VIAL IVPB SCH (09:06)
[2017-09-26] MEDS: LIDOCAINE 5% TOPICAL PATCH TP SCH (09:06)
[2017-09-26 09:54] LABS: BASO % 0.7 % (0-2.0); EOS % 2.7 % (0-4.5); HEMOGLOBIN 8.5 GM/dL (11.7-16.9); LYMPH % 12.9 % (8-40); MCH 26.7 pg (25.7-33.7); MCHC 32.6 g/dl (32.0-35.9); MEAN CELL VOLUME 81.8 fl (80-96); MEAN PLT VOLUME 7.3 fl (7.5-11.1); MONO % 13.3 % (3.8-10.2); NEUT % 70.4 % (42.8-82.8); PLATELET COUNT 39 K/MM3 (134-434); RBC 3.17 M/mm3 (4.00-5.60); RDW 18.4 % (11.9-15.9); WHITE BLOOD COUNT 4.1 K/mm3 (4.0-10.0)
[2017-09-26] MEDS ORDERED: METHADONE HCL 10 MG TABLET PO ONE (10:00)
[2017-09-26 10:18] LABS: ALBUMIN 2.2 g/dl (3.4-5.0); ANION GAP 7 (8-16); BILIRUBIN,TOTAL 2.5 mg/dL (0.2-1.0); BLOOD UREA NITROGEN 8 mg/dL (7-18); CHLORIDE 105 mmol/L (98-107); CO2 28 mmol/L (21-32); CREATININE 0.5 mg/dL (0.7-1.3); GLUCOSE,RANDOM 84 mg/dL (74-106); MAGNESIUM 1.9 mg/dL (1.8-2.4); POTASSIUM 3.3 mmol/L (3.5-5.1); SGOT/AST 41 U/L (15-37); SGPT/ALT 18 U/L (12-78); SODIUM 140 mmol/L (136-145); TOT PROT 6.6 g/dl (6.4-8.2)
[2017-09-26 10:19] LABS: ALK PHOS 152 U/L (45-117)
--- NOTE | 2017-09-26 11:50 | CONSULT ---
Consult - text type - Consultation Consultation Note: 47 yo male w cirrhosis and ascities w left hemiscrotal swelling Pt c/o leg pain no scrotal pain MARCI C/W hernia no abscess Follow prn rec gen surgery consult posssible hernia repair
--- NOTE | 2017-09-26 12:32 | PN ---
Progress Note, Physician History of Present Illness: calm no new issues pain is the main complaint - Current Medication List Current Medications: Active Medications Acetaminophen (Tylenol -) 650 mg PO Q6H PRN PRN Reason: Fever Or Pain Last Admin: 09/26/17 05:35 Dose: 650 mg Albuterol Sulfate (Ventolin Hfa Inhaler -) 2 puff IH Q4H PRN PRN Reason: Dyspnea Chlordiazepoxide HCl (Librium -) 25 mg PO [id number] KENDRICK Stop: 09/27/17 05:01 Last Admin: 09/26/17 11:23 Dose: 25 mg Chlordiazepoxide HCl (Librium -) 15 mg PO [id number] KENDRICK Stop: 09/28/17 05:01 Chlordiazepoxide HCl (Librium -) 25 mg PO Q4H PRN PRN Reason: WITHDRAWAL(CONT SUBST) Stop: 09/28/17 09:13 Chlordiazepoxide HCl (Librium -) 10 mg PO [id number] KENDRICK Stop: 09/29/17 05:01 Clindamycin HCl (Cleocin -) 300 mg PO Q6HPO KENDRICK Last Admin: 09/26/17 11:23 Dose: 300 mg Ferrous Sulfate (Feosol -) 325 mg PO DAILY [facility] Last Admin: 09/26/17 09:04 Dose: 325 mg Folic Acid (Folic Acid -) 1 mg PO DAILY [facility] Last Admin: 09/26/17 09:04 Dose: 1 mg Furosemide (Lasix Injection -) 40 mg IVPB DAILY [facility] Last Admin: 09/26/17 09:06 Dose: 40 mg Hydroxyzine Pamoate (Vistaril -) 50 mg PO Q4H PRN PRN Reason: AGITATION Cefepime HCl (Maxipime 1 Gm Premix Ivpb) 1 gm in 50 mls @ 100 mls/hr IVPB Q8H- IV KENDRICK; Protocol Last Admin: 09/26/17 09:14 Dose: 100 mls/hr Lactobacillus Acidophilus (Bacid -) 1 tab PO DAILY [facility] Last Admin: 09/26/17 09:06 Dose: 1 tab Lactulose (Cephulac (Oral Use)) 30 gm PO QID [facility] Last Admin: 09/26/17 09:05 Dose: Not Given Lidocaine (Lidoderm Patch -) 1 patch TP DAILY [facility] Last Admin: 09/26/17 09:06 Dose: 1 patch Magnesium Hydroxide (Milk Of Magnesia -) 30 ml PO DAILY PRN PRN Reason: CONSTIPATION Melatonin (Melatonin) 5 mg PO HS PRN PRN Reason: INSOMNIA Methadone HCl (Dolophine -) 15 mg PO ONCE ONE Stop: 09/27/17 23:59 Methadone HCl (Dolophine -) 5 mg PO ONCE@0600 ONE Stop: 09/30/17 23:59 Methadone HCl (Dolophine -) 15 mg PO ONCE ONE Stop: 09/28/17 23:59 Methadone HCl (Dolophine -) 10 mg PO ONCE ONE Stop: 09/29/17 10:01 Miscellaneous (Lidoderm Patch Removal) 1 each MC DAILY@2200 [facility] Last Admin: 09/25/17 22:08 Dose: 1 each Nadolol (Corgard -) 40 mg PO DAILY [facility] Last Admin: 09/26/17 09:05 Dose: 40 mg Non-Formulary Medication (Fluticasone/Salmeterol [Advair Hfa 230-21 Mcg Inhaler] ) 2 puff IH BID [facility] Oxycodone HCl (Roxicodone -) 10 mg PO Q6H PRN PRN Reason: PAIN LEVEL 6-10 Last Admin: 09/26/17 11:36 Dose: 10 mg Pantoprazole Sodium (Protonix -) 40 mg PO DAILY [facility] Last Admin: 09/26/17 09:04 Dose: 40 mg Potassium Chloride (K-Dur -) 40 meq PO BID [facility] Stop: 09/26/17 22:01 Last Admin: 09/26/17 09:05 Dose: 40 meq Rifaximin (Xifaxan -) 550 mg PO BID [facility] Last Admin: 09/26/17 09:06 Dose: 550 mg Spironolactone (Aldactone -) 75 mg PO BID [facility] Last Admin: 09/26/17 09:06 Dose: 75 mg Tamsulosin HCl (Flomax -) 0.4 mg PO [facility] Last Admin: 09/25/17 22:04 Dose: Not Given Thiamine HCl (Vitamin B1 -) 100 mg PO HS [facility] Last Admin: 09/25/17 22:05 Dose: 100 mg - Objective Vital Signs: Vital Signs Temperature 99.6 F 09/26/17 05:43 Pulse Rate 82 09/26/17 05:43 Respiratory Rate 22 09/26/17 09:00 Blood Pressure 105/67 09/26/17 05:43 O2 Sat by Pulse Oximetry (%) 93 L 09/26/17 09:00 Constitutional: Yes: Calm, Mild Distress Neck: Yes: Supple Cardiovascular: Yes: Regular Rate and Rhythm Respiratory: Yes: Regular, CTA Bilaterally Gastrointestinal: Yes: Normal Bowel Sounds, Soft, Ascites, Other Musculoskeletal: Yes: WNL Extremities: Yes: Other (rt sided cellulitits) Wound/Incision: Yes: Dressing Dry and Intact Psychiatric: Yes: Alert Labs: CBC, BMP 09/26/17 09:15 09/26/17 09:15 INR, PTT INR 1.67 (0.83-1.09) H 09/25/17 16:22 Assessment/Plan Patient is a 46 year old male with a significant past medical history of chronic ETOH abuse, heroin abuse, esophageal varicies, liver cirrhosis, small bowel obstruction, hepatitis C and right leg cellulitis for a chronic non healing wound. He was admitted on 09/24/17 for altered mental status and right leg wound infection with purulent drainage and worsening burning pain over the last 48 hours. He is also noted to have scrotal swelling. Patient admits to drinking approximately 4-5 beers every night with heroin use~ 5 bags. plan scrotal u/s noted wound infection noted on the leg plan abx consider tapping rest as per the team
--- NOTE | 2017-09-26 12:39 | PN ---
Physical Exam: SUBJECTIVE: Patient seen and examined at the bedside. Right leg pain with dressing changes. Reports feeling better after starting Librium. OBJECTIVE: Vital Signs Period Temp Pulse Resp BP Sys/Choi Pulse Ox Last 24 Hr 98.9 F-99.6 F 78-82 18-22 105-140/67-81 93-93 GENERAL: The patient is awake, alert-less agitated HEAD: Normal with no signs of trauma. EYES: PERRL, extraocular movements intact, sclera anicteric, conjunctiva clear. No ptosis. ENT: Ears normal, nares patent, oropharynx clear without exudates, moist mucous membranes. NECK: Trachea midline, full range of motion, supple. LUNGS: Breath sounds equal, clear to auscultation bilaterally HEART: Regular rate and rhythm ABDOMEN: large obese abdomen, hx of ascites, had multiple procedures of fluid removal 2/2 ascites EXTREMITIES: right leg cellulitis with purulent drainage-odorous, leg red and inflammed, smells of psudamonas, ulcers with purulent drainage. NEUROLOGICAL: Normal speech PSYCH: Normal mood, normal affect. SKIN: Warm, dry, normal turgor, no rashes or lesions noted Laboratory Results - last 24 hr 09/25/17 09/25/17 09/25/17 06:15 13:30 16:22 WBC RBC Hgb Hct MCV MCH MCHC RDW Plt Count MPV Absolute Neuts (auto) Neutrophils % Lymphocytes % Monocytes % Eosinophils % Basophils % Nucleated RBC % PT with INR 18.90 H INR 1.67 H Sodium Potassium Chloride Carbon Dioxide Anion Gap BUN Creatinine Creat Clearance w eGFR Random Glucose Calcium Magnesium Iron 18 L Total Bilirubin AST ALT Alkaline Phosphatase Ammonia Total Protein Albumin Stool Occult Blood Negative 09/26/17 09/26/17 09/26/17 09:15 09:15 09:15 WBC 4.1 RBC 3.17 L Hgb 8.5 L Hct 26.0 L D MCV 81.8 MCH 26.7 MCHC 32.6 RDW 18.4 H Plt Count 39 L MPV 7.3 L Absolute Neuts (auto) 2.9 Neutrophils % 70.4 Lymphocytes % 12.9 Monocytes % 13.3 H Eosinophils % 2.7 D Basophils % 0.7 Nucleated RBC % 0 PT with INR INR Sodium 140 Potassium 3.3 L Chloride 105 Carbon Dioxide 28 Anion Gap 7 L BUN 8 Creatinine 0.5 L Creat Clearance w eGFR > 60 Random Glucose 84 Calcium 8.0 L Magnesium 1.9 Iron Total Bilirubin 2.5 H AST 41 H ALT 18 Alkaline Phosphatase 152 H D Ammonia 82.88 H Total Protein 6.6 Albumin 2.2 L Stool Occult Blood Active Medications Generic Name Dose Route Start Last Admin Trade Name Freq PRN Reason Stop Dose Admin Acetaminophen 650 mg 09/25/17 05:49 09/26/17 05:35 Tylenol - PO 650 mg Q6H PRN Administration Fever Or Pain Albuterol Sulfate 2 puff 09/25/17 00:05 Ventolin Hfa Inhaler - IH Q4H PRN Dyspnea Chlordiazepoxide HCl 25 mg 09/26/17 11:00 09/26/17 11:23 Librium - PO 09/27/17 05:01 25 mg [id number] KENDRICK Administration Chlordiazepoxide HCl 15 mg 09/27/17 11:00 Librium - PO 09/28/17 05:01 [id number] KENDRICK Chlordiazepoxide HCl 25 mg 09/25/17 09:14 Librium - PO 09/28/17 09:13 Q4H PRN WITHDRAWAL(CONT SUBST) Chlordiazepoxide HCl 10 mg 09/28/17 11:00 Librium - PO 09/29/17 05:01 [id number] KENDRICK Clindamycin HCl 300 mg 09/25/17 18:00 09/26/17 11:23 Cleocin - PO 300 mg Q6HPO KENDRICK Administration Ferrous Sulfate 325 mg 09/25/17 10:00 09/26/17 09:04 Feosol - PO 325 mg DAILY KENDRICK Administration Folic Acid 1 mg 09/25/17 10:00 09/26/17 09:04 Folic Acid - PO 1 mg DAILY KENDRICK Administration Furosemide 40 mg 09/25/17 10:00 09/26/17 09:06 Lasix Injection - IVPB 40 mg DAILY KENDRICK Administration Hydroxyzine Pamoate 50 mg 09/25/17 15:17 Vistaril - PO Q4H PRN AGITATION Cefepime HCl 1 gm in 50 mls @ 100 mls/hr 09/25/17 13:30 09/26/17 09:14 Maxipime 1 Gm Premix Ivpb IVPB 100 mls/hr Q8H-IV KENDRICK Administration Protocol Lactobacillus Acidophilus 1 tab 09/25/17 10:00 09/26/17 09:06 Bacid - PO 1 tab DAILY KENDRICK Administration Lactulose 30 gm 09/25/17 10:00 09/26/17 09:05 Cephulac (Oral Use) PO Not Given QID KENDRICK Lidocaine 1 patch 09/25/17 10:00 09/26/17 09:06 Lidoderm Patch - TP 1 patch DAILY KENDRICK Administration Magnesium Hydroxide 30 ml 09/25/17 15:17 Milk Of Magnesia - PO DAILY PRN CONSTIPATION Melatonin 5 mg 09/25/17 22:00 Melatonin PO HS PRN INSOMNIA Methadone HCl 15 mg 09/27/17 10:00 Dolophine - PO 09/27/17 23:59 ONCE ONE Methadone HCl 5 mg 09/30/17 06:00 Dolophine - PO 09/30/17 23:59 ONCE@0600 ONE Methadone HCl 15 mg 09/28/17 10:00 Dolophine - PO 09/28/17 23:59 ONCE ONE Methadone HCl 10 mg 09/29/17 10:00 Dolophine - PO 09/29/17 10:01 ONCE ONE Miscellaneous 1 each 09/25/17 22:00 09/25/17 22:08 Lidoderm Patch Removal MC 1 each DAILY@2200 KENDRICK Administration Nadolol 40 mg 09/25/17 10:00 09/26/17 09:05 Corgard - PO 40 mg DAILY KENDRICK Administration Non-Formulary Medication 2 puff 09/25/17 10:00 Fluticasone/Salmeterol [Advair Hfa 230-21 Mcg Inhaler] IH BID KENDRICK Oxycodone HCl 10 mg 09/26/17 10:59 09/26/17 11:36 Roxicodone - PO 10 mg Q6H PRN Administration PAIN LEVEL 6-10 Pantoprazole Sodium 40 mg 09/25/17 10:00 09/26/17 09:04 Protonix - PO 40 mg DAILY KENDRICK Administration Potassium Chloride 40 meq 09/25/17 10:00 09/26/17 09:05 K-Dur - PO 09/26/17 22:01 40 meq BID KENDRICK Administration Rifaximin 550 mg 09/25/17 10:00 09/26/17 09:06 Xifaxan - PO 550 mg BID KENDRICK Administration Spironolactone 75 mg 09/25/17 10:00 09/26/17 09:06 Aldactone - PO 75 mg BID KENDRICK Administration Tamsulosin HCl 0.4 mg 09/25/17 22:00 09/25/17 22:04 Flomax - PO Not Given HS KENDRICK Thiamine HCl 100 mg 09/25/17 22:00 09/25/17 22:05 Vitamin B1 - PO 100 mg HS KENDRICK Administration ASSESSMENT/PLAN: Patient is a 46 year old male with a significant past medical history of chronic ETOH abuse, heroin abuse, esophageal varicies, liver cirrhosis, small bowel obstruction, hepatitis C and right leg cellulitis for a chronic non healing wound. He was admitted on 09/24/17 for altered mental status and right leg wound infection with purulent drainage and worsening burning pain over the last 48 hours. He is also noted to have scrotal swelling. Patient admits to drinking approximately 4-5 beers every night with heroin use~ 5 bags. Imaging: Scrotal u/s: no torsion/acute process seen-large right inguinal hernia containing ascites. Vascular Study r/o dvt: evaluation of the right leg limited, in that the posterior tibial veins could not be visualized. The remaining right leg deep veins are visualized and intact.correlation with follow up sono is suggested in apx 2-3 days unless otherwise clinically indicted. ------ Psyche: Alcohol abuse: Started on Librium protocol. History of ETOH abuse with elevated CIWA score. Methadone started by detox physician. 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 History of ascites with multiple paracentesis. IR consulted for possible paracentesis, however platelets are 39 currently. On Lasix IV 40mg, Spironolactone. Corgard, Rifaximin, Lactulose. Hyperammonemia: elevated ammonia levels on admission at 74.44. ON Lactulose, Rifaximin 550mg BID. Repeat ammonia levels show rise, patient has been refusing Lactulose. Large hernia with surrounding ascites: surgical consult. Vascular Right leg wound: Odorous, painful right lower extremity with multiple open ulcerations. Wound culture pending. IV antibiotics per ID. Daily wound care. V Electrolyte imbalance: Hypokalemia: on standing 40meqkcl. Monitor and replete. Back Pain: Back lumbar xray ordered, back pain likely secondary to heroin use and acute withdrawal. : Scrotal Swelling, ultrasound w/o evidence of torsion. urology consulted. Hematology: Anemia: monitor in the setting of abstinence of ETOH. Thrombocytopenia: bleeding risk, no anticoagulation. Monitor in the setting of abstinence fm ETOH. F.E.N. Fluids: none needed, tolerating PO Electrolytes: hypok repleted, monitor daily BMP Nutrition; low sodium diet Prophylaxis: DVT: no a/c 2/2 low platelets GI: Protonix Disposition: Pt currently requires inpatient management of his emergent condition and expected LOS is greater than 2 MN Visit type - Emergency Visit Emergency Visit: Yes ED Registration Date: 09/24/17 Care time: The patient presented to the Emergency Department on the above date and was hospitalized for further evaluation of their emergent condition. - New Patient This patient is new to me today: No - Critical Care Critical Care patient: No - Discharge Referral Referred to [facility] Med P.C.: No
--- NOTE | 2017-09-26 14:48 | CON.GI ---
Consult Consult Specialty:: GI:For Dr. Morrison who resumes care 09/27 Referred by:: Hospitalist Service Reason for Consultation:: Liver disease - History of Present Illness Chief Complaint: scrotal pain, leg wounds History of Present Illness: 47M admitted for evaluation of scrotal pain and leg pain. Asked to evaluate given h/o liver disease. In review of [facility] he was evaluated by Dr. Rivera . It appears at that time Mr. Duarte underwent paracentesis and adjustment of diuretics.n It is unclear if he has followed with anyone regarding his liver disease since that time. Prior to that he was seen as an inpatient by Dr. Alegria in [address] Simpson in 2013. Mr. Duarte alludes to having had a variceal bleed about 4 years ago at [facility] at which time he underwent endoscopy. he also believes that he may have had a colonoscopy as well that was "OK". He denies overt bleeding or melena. He alludes to being treated "a few months ago in the [place]" for hepatitis C. He underwent 3200cc paracentesis 03/02 by interventional radiology. Seen by urology this admission who recommended general surgey consult for hernia repair. 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 bowel resection) - Alcohol/Substance Use Hx Alcohol Use: Yes ( a 6pk per day. more at times) Number of Drinks Daily: 3 History of Substance Use: reports: Heroin Date of Last Use: 11/14/16 (see tox report) - Smoking History Smoking history: Current some day smoker Have you smoked in the past 12 months: Yes Aproximately how many cigarettes per day: 3 - Social History Usual Living Arrangement: Alone Place of : Other ([place]: Came to [place] age 6 months) History of Recent Travel: No Home Medications - Allergies Allergies/Adverse Reactions: Allergies Allergy/AdvReac Type Severity Reaction Status Date / Time morphine Allergy Unverified 09/24/17 23:58 - Home Medications Home Medications: Ambulatory Orders Albuterol Sulfate Inhaler - [Ventolin HFA Inhaler -] 2 puff IH Q4H PRN #1 inhaler 02/15/17 Ferrous Sulfate [Feosol] 325 mg PO DAILY #30 tab 02/15/17 Fluticasone/Salmeterol [Advair Hfa 230-21 Mcg Inhaler] 2 puff IH BID #1 hfa.aer.ad 02/15/17 Folic Acid 1 mg PO DAILY #30 tablet 02/15/17 Furosemide [Lasix -] 40 mg PO BID@0600,1400 #60 tablet 02/15/17 Lactobacillus Combination No.4 [Probiotic] 1 each PO DAILY #30 capsule 02/15/17 Lactulose (Oral Use) [Cephulac -] 30 gm PO QID #120 dose 02/15/17 Lidocaine 5% Patch [Lidoderm Patch -] 1 patch TP DAILY #5 patch 02/15/17 Nadolol [Corgard -] 40 mg PO DAILY #30 tablet 02/15/17 Pantoprazole Sodium [Protonix] 40 mg PO DAILY #30 tablet.dr 02/15/17 Potassium Chloride [K-Dur -] 20 meq PO DAILY #3 tablet.er 02/15/17 Spironolactone [Aldactone -] 75 mg PO BID #60 tablet 02/15/17 Tamsulosin HCl [Flomax] 0.4 mg PO HS #30 cap.er.24h 02/15/17 Family Disease History - Family Disease History Family Disease History: Other: Father (Killed age 29), Mother (alive), Son (2, healthy), Daughter (1, healthy) Other Family History: 10 siblings: 3 , 1 from meningitis, 1 from ? complication from medical problem, 1 ? cancer Review of Systems - Review of Systems Constitutional: reports: Lethargy. denies: Fever, Unintentional Wgt. Loss Cardiovascular: denies: Chest Pain Respiratory: denies: SOB Gastrointestinal: reports: Bloating. denies: Abdominal Pain Physical Exam-GI Vital Signs: Vital Signs Temperature 99.8 F H 09/26/17 14:00 Pulse Rate 77 09/26/17 14:00 Respiratory Rate 20 09/26/17 14:00 Blood Pressure 108/67 09/26/17 14:00 O2 Sat by Pulse Oximetry (%) 93 L 09/26/17 09:00 Constitutional: Yes: Calm Eyes: No: Sclera Icterus Cardiovascular: Yes: Regular Rate and Rhythm, Murmur Respiratory: Yes: Diminished (at bases bilaterally) Gastrointestinal Inspection: Yes: Ascites, Distention, Scars (midline vertical surgical scar) ...Auscultate: Yes: Normoactive Bowel Sounds ...Palpate: No: Tenderness ...Percussion: No: Tympanitic ...Rectal Exam: Yes: Deferred (refused by patient) Genitourinary: Yes: Other (scrotal edema) Extremities: Yes: Other (dressing on right lower extremity) Edema: Yes Neurological: Yes: Alert, [facility]ix[facility] Labs: CBC, BMP 09/26/17 09:15 09/26/17 09:15 INR, PTT INR 1.67 (0.83-1.09) H 09/25/17 16:22 Hepatic Panel Total Bilirubin 2.5 mg/dL (0.2-1.0) H 09/26/17 09:15 AST 41 U/L (15-37) H 09/26/17 09:15 ALT 18 U/L (12-78) 09/26/17 09:15 Alkaline Phosphatase 152 U/L (45-117) H D 09/26/17 09:15 Albumin 2.2 g/dl (3.4-5.0) L 09/26/17 09:15 MELD: 16 Child Class C Imaging - Results Ultrasound: Report Reviewed (scrotal US = large right ascites filled inguinal hernia) Problem List - Problems (1) Liver cirrhosis Assessment/Plan: Child Class C / MELD 16 Multifactorial etiology: continued alcohol abuse, also w/ h/o Hepatitis C Surgery can evaluate the patient given symptomatic fluid filled direct inguinal hernia however he is high rish for surgery given the severity of his liver disease. If the [facility] Transplant team is still seeing inpatients, a consultation could be requested to obtain their opinion re any interventions. Also, Continue to titrate diuretics Therapeutic paracentesis Lactulose: titrate to 4-5 loose BM's per day, rifaximin 550mg PO BID If ascites refractory, consideration may be needed to consider stopping beta marcos Discussed the need for complete alcohol abstinence with Mr. Duarte Q 6 month hepatic US and AFP to screen for HCC Code(s): K74.60 - UNSPECIFIED CIRRHOSIS OF LIVER
[2017-09-26] MEDS: PATIENT'S OWN MEDICATION (NON-FORMULARY) (Fluticasone/Salmeterol [Advair Hfa 230-21 Mcg In IH SCH (16:26)
--- NOTE | 2017-09-26 17:44 | CONSULT ---
Consult Consult Specialty:: general surgery Reason for Consultation:: left inguinal hernia - History of Present Illness Chief Complaint: left inguinal hernia History of Present Illness: 47 yo male with PMH cirrhosis (Child's C, MELD 16), moderate to severe ascites and esophageal varices secondary to Alcohol abuse, umbilical hernia s/p small bowel resection, and chronic right leg wound, presented with gradual worsening of the right leg wound and low back pain. Patient has been complaining of low back pain for the past 3 months, he has been taking oxycodone regularly for pain. Three days ago, patient ran out of oxycodone and noted pain to have worsened. The chronic leg wound was known to have started a year ago. Two months prior, patient noted wound to have worsened, was admitted at our institution and given IV antibiotics. Three days prior, patient noted to have worsened leg pain as well. Patient also complains of abdominal swelling. During his last admission, paracentesis was done which relieved the swelling, and patient was given Lasix and Spironolactone as take home medications. Two weeks prior, patient noted abdomen to be swelling again. We were asked to assess - History Source History Provided By: Patient, Medical Record Limitations to Obtaining History: No Limitations - Past Medical History [employer]: Yes: Other (encephalopathy) Gastrointestinal: Yes: Ascites, Esophageal Varices, Other (Hepatitis, umbilical hernia) Hepatobiliary: Yes: Cirrhosis, Hepatitis C Psych: Yes: Addictions (alchohol Current, Heroin revcovery) Rheumatology: No: Fibromyalgia Endocrine: Yes: Other (hyponatremia) Dermatology: Yes: Other (rt lower extremity cellulitis) - Past Surgical History Past Surgical History: Yes: Hernia Repair (ventral hernia repair with ? bowel resection) - Alcohol/Substance Use Hx Alcohol Use: Yes ( a 6pk per day. more at times) Number of Drinks Daily: 3 History of Substance Use: reports: Heroin Date of Last Use: 11/14/16 (see tox report) - Smoking History Smoking history: Current some day smoker Have you smoked in the past 12 months: Yes Aproximately how many cigarettes per day: 3 If you are a former smoker, when did you quit?: 10yrs - Social History Usual Living Arrangement: Alone History of Recent Travel: No Home Medications - Allergies Allergies/Adverse Reactions: Allergies Allergy/AdvReac Type Severity Reaction Status Date / Time morphine Allergy Unverified 09/24/17 23:58 - Home Medications Home Medications: Ambulatory Orders Albuterol Sulfate Inhaler - [Ventolin HFA Inhaler -] 2 puff IH Q4H PRN #1 inhaler 02/15/17 Ferrous Sulfate [Feosol] 325 mg PO DAILY #30 tab 02/15/17 Fluticasone/Salmeterol [Advair Hfa 230-21 Mcg Inhaler] 2 puff IH BID #1 hfa.aer.ad 02/15/17 Folic Acid 1 mg PO DAILY #30 tablet 02/15/17 Furosemide [Lasix -] 40 mg PO BID@0600,1400 #60 tablet 02/15/17 Lactobacillus Combination No.4 [Probiotic] 1 each PO DAILY #30 capsule 02/15/17 Lactulose (Oral Use) [Cephulac -] 30 gm PO QID #120 dose 02/15/17 Lidocaine 5% Patch [Lidoderm Patch -] 1 patch TP DAILY #5 patch 02/15/17 Nadolol [Corgard -] 40 mg PO DAILY #30 tablet 02/15/17 Pantoprazole Sodium [Protonix] 40 mg PO DAILY #30 tablet.dr 02/15/17 Potassium Chloride [K-Dur -] 20 meq PO DAILY #3 tablet.er 02/15/17 Spironolactone [Aldactone -] 75 mg PO BID #60 tablet 02/15/17 Tamsulosin HCl [Flomax] 0.4 mg PO HS #30 cap.er.24h 02/15/17 Family Disease History - Family Disease History Family Disease History: Other: Father (Killed age 29), Mother (alive), Son (2, healthy), Daughter (1, healthy) Other Family History: 10 siblings: 3 , 1 from meningitis, 1 from ? complication from medical problem, 1 ? cancer Review of Systems - Review of Systems Constitutional: denies: Chills, Fever Eyes: denies: Blind Spots, Recent Change in Vision HENT: denies: Difficult Swallowing Neck: denies: Pain on Movement, Tenderness Cardiovascular: denies: Chest Pain, Palpitations Respiratory: denies: Cough, SOB Gastrointestinal: reports: Abdominal Pain, Bloating Genitourinary: reports: Other (large inguinal hernias). denies: Discharge, Dysuria Breasts: reports: No Symptoms Reported. denies: Pain Musculoskeletal: reports: Back Pain, Muscle Weakness. denies: Muscle Pain Integumentary: denies: Lump, Pruritis, Rash Neurological: reports: Confusion. denies: Seizure, Syncope Endocrine: denies: Unexplained Weight Gain, Unexplained Weight Loss Hematology/Lymphatic: denies: Easily Bruised, Excessive Bleeding Psychiatric: denies: Anxiety, Depression Physical Exam Vital Signs: Vital Signs Temperature 100.9 F H 09/26/17 16:50 Pulse Rate 79 09/26/17 16:50 Respiratory Rate 18 09/26/17 16:50 Blood Pressure 105/56 09/26/17 16:50 O2 Sat by Pulse Oximetry (%) 93 L 09/26/17 09:00 Constitutional: Yes: No Distress, Calm, Cachectic, Thin Eyes: Yes: Conjunctiva Clear, EOM Intact HENT: Yes: Atraumatic, Normocephalic Neck: Yes: Supple, Trachea Midline Cardiovascular: Yes: Regular Rate and Rhythm, S1, S2 Respiratory: Yes: Regular, CTA Bilaterally Gastrointestinal: Yes: Normal Bowel Sounds, Soft, Ascites, Distention, Hernia ( healed midline abdominal scar.), Other (caput [place]). No: Tenderness, Tenderness, Epigastrium, Tenderness, Rebound ...Rectal Exam: Yes: Deferred Renal/: No: CVA Tenderness - Left, CVA Tenderness - Right Extremities: No: Cool, Cyanosis Edema: Yes Edema: LLE: 2+, RLE: 2+ Wound/Incision: Yes: Clean/Dry, Well Approximated Neurological: Yes: Alert, Confusion Psychiatric: No: Alert, Oriented Labs: CBC, BMP 09/26/17 09:15 09/26/17 09:15 Imaging - Results Chest X-ray: Report Reviewed, Image Reviewed Ultrasound: Report Reviewed, Image Reviewed Problem List - Problems (1) Scrotal swelling Assessment/Plan: 47 yo male with PMH cirrhosis (Child's C, MELD 16), moderate to severe ascites and esophageal varices secondary to Alcohol abuse, umbilical hernia s/p small bowel resection, Large uncomfortable scrotal ascites. There is no role for surgical intervention is this patient outside of a strangulated segment of intestines. The patinet shows no sign of this. No surgical intervention Management per primary team scrotal support Treat ascites with paracentsis as deemed appropriate Thank you for the opportunity to participate in the care of this patient. Code(s): N50.89 - OTHER SPECIFIED DISORDERS OF THE MALE GENITAL ORGANS (2) Ascites Code(s): R18.8 - OTHER ASCITES Qualifiers: Ascites type: due to alcoholic cirrhosis Qualified Code(s): K70.31 - Alcoholic cirrhosis of liver with ascites (3) Ascites due to alcoholic cirrhosis Code(s): K70.31 - ALCOHOLIC CIRRHOSIS OF LIVER WITH ASCITES (4) Cellulitis of right leg Code(s): L03.115 - CELLULITIS OF RIGHT LOWER LIMB (5) Alcohol abuse Code(s): F10.10 - ALCOHOL ABUSE, UNCOMPLICATED (6) Bilateral leg edema Code(s): R60.0 - LOCALIZED EDEMA (7) Opioid dependence Code(s): F11.20 - OPIOID DEPENDENCE, UNCOMPLICATED Qualifiers: Substance use status: uncomplicated Qualified Code(s): F11.20 - Opioid dependence, uncomplicated (8) Opioid dependence on agonist therapy Code(s): F11.20 - OPIOID DEPENDENCE, UNCOMPLICATED (9) Portal hypertension with esophageal varices Code(s): K76.6 - PORTAL HYPERTENSION; I85.00 - ESOPHAGEAL VARICES WITHOUT BLEEDING (10) Thrombocytopenia concurrent with and due to alcoholism Code(s): D69.59 - OTHER SECONDARY THROMBOCYTOPENIA; F10.20 - ALCOHOL DEPENDENCE , UNCOMPLICATED
[2017-09-26] MEDS: BUDESONIDE/FORMETEROL FUMARATE 160/4.5 mcg INHALER IH SCH (22:43)
[2017-09-26] MEDS: TAMSULOSIN HCL 0.4 MG CAP.ER.24H (FP) PO SCH (22:43)
[2017-09-26] MEDS: LIDOCAINE PATCH REMOVAL MC SCH ×2 (22:44→22:49)
[2017-09-26] MEDS: THIAMINE HCL 100 MG TABLET (FP) PO SCH (22:44)
[2017-09-27] MEDS ORDERED: PT OWN MED DRAWER 7, Y5N ONE ×4 (01:37→20:35)
[2017-09-27] MEDS: CEFEPIME HCL/D5W 1 GM/50 ML BAG IVPB SCH ×3 (02:06→17:03)
[2017-09-27] MEDS ORDERED: chlordiazePOXIDE 5 MG CAPSULE PO SCH (05:00)
[2017-09-27] MEDS: CLINDAMYCIN HCL 150 MG CAPSULE (FP) PO SCH ×4 (05:29→23:00)
[2017-09-27] MEDS: oxyCODONE HCL 5 MG TABLET PO PRN ×4 (05:29→23:25)
[2017-09-27] MEDS: chlordiazePOXIDE HCL 25 MG CAPSULE PO SCH (05:29)
[2017-09-27] MEDS ORDERED: METHADONE HCL 5 MG TABLET PO SCH (10:00)
[2017-09-27] MEDS ORDERED: METHADONE HCL 5 MG TABLET PO ONE ×2 (10:00→12:15)
[2017-09-27] MEDS ORDERED: NADOLOL 20 MG TABLET (FP) ONE (10:28)
[2017-09-27] MEDS: RIFAXIMIN 550 MG TABLET (UD) PO SCH ×2 (10:42→23:05)
[2017-09-27] MEDS: FOLIC ACID 1 MG TABLET (FP) PO SCH (10:42)
[2017-09-27] MEDS: PANTOPRAZOLE 40 MG TABLET (FP) PO SCH (10:42)
[2017-09-27] MEDS: LACTOBACILLUS ACIDOPHILUS 1 TABLET PO SCH (10:42)
[2017-09-27] MEDS: chlordiazePOXIDE 5 MG CAPSULE PO SCH ×3 (10:42→23:57)
[2017-09-27] MEDS: FERROUS SO4 325 MG TABLET (FP) PO SCH (10:42)
[2017-09-27] MEDS: NADOLOL 40 MG TABLET (FP) PO SCH (10:43)
[2017-09-27] MEDS: LACTULOSE 20 GM/30 ML UDC (FOR ORAL USE ONLY) PO SCH ×4 (10:43→22:59)
[2017-09-27] MEDS: BUDESONIDE/FORMETEROL FUMARATE 160/4.5 mcg INHALER IH SCH ×2 (10:43→23:05)
[2017-09-27] MEDS: SPIRONOLACTONE 25 MG TABLET (FP) PO SCH ×2 (10:44→23:04)
[2017-09-27] MEDS: LIDOCAINE 5% TOPICAL PATCH TP SCH (10:57)
[2017-09-27 11:09] LABS: BASO % 1.2 % (0-2.0); HEMATOCRIT 27.9 % (35.4-49); HEMOGLOBIN 8.9 GM/dL (11.7-16.9); LYMPH % 16.9 % (8-40); MCH 26.6 pg (25.7-33.7); MEAN PLT VOLUME 7.9 fl (7.5-11.1); MONO % 13.1 % (3.8-10.2); NEUT % 64.8 % (42.8-82.8); PLATELET COUNT 51 K/MM3 (134-434); RBC 3.36 M/mm3 (4.00-5.60); RDW 18.6 % (11.9-15.9); WHITE BLOOD COUNT 4.1 K/mm3 (4.0-10.0)
--- NOTE | 2017-09-27 11:17 | PN ---
Progress Note, Physician History of Present Illness: spiked fever still with abd pain - Current Medication List Current Medications: Active Medications Acetaminophen (Tylenol -) 650 mg PO Q6H PRN PRN Reason: Fever Or Pain Last Admin: 09/26/17 17:18 Dose: 650 mg Albuterol Sulfate (Ventolin Hfa Inhaler -) 2 puff IH Q4H PRN PRN Reason: Dyspnea Budesonide/Formoterol Fumarate (Symbicort 160/4.5mcg -) 2 puff IH BID [facility] Last Admin: 09/27/17 10:43 Dose: 2 puff Chlordiazepoxide HCl (Librium -) 15 mg PO [id number] KENDRICK Stop: 09/28/17 05:01 Last Admin: 09/27/17 10:42 Dose: 15 mg Chlordiazepoxide HCl (Librium -) 25 mg PO Q4H PRN PRN Reason: WITHDRAWAL(CONT SUBST) Stop: 09/28/17 09:13 Chlordiazepoxide HCl (Librium -) 10 mg PO [id number] [facility] Stop: 09/29/17 05:01 Clindamycin HCl (Cleocin -) 300 mg PO Q6HPO KENDRICK Last Admin: 09/27/17 05:29 Dose: 300 mg Ferrous Sulfate (Feosol -) 325 mg PO DAILY [facility] Last Admin: 09/27/17 10:42 Dose: 325 mg Folic Acid (Folic Acid -) 1 mg PO DAILY [facility] Last Admin: 09/27/17 10:42 Dose: 1 mg Furosemide (Lasix Injection -) 40 mg IVPB DAILY [facility] Last Admin: 09/26/17 09:06 Dose: 40 mg Hydroxyzine Pamoate (Vistaril -) 50 mg PO Q4H PRN PRN Reason: AGITATION Last Admin: 09/26/17 22:41 Dose: 50 mg Cefepime HCl (Maxipime 1 Gm Premix Ivpb) 1 gm in 50 mls @ 100 mls/hr IVPB Q8H- IV KENDRICK; Protocol Last Admin: 09/27/17 02:06 Dose: 100 mls/hr Lactobacillus Acidophilus (Bacid -) 1 tab PO DAILY KENDRICK Last Admin: 09/27/17 10:42 Dose: 1 tab Lactulose (Cephulac (Oral Use)) 30 gm PO QID [facility] Last Admin: 09/27/17 10:43 Dose: 30 gm Lidocaine (Lidoderm Patch -) 1 patch TP DAILY [facility] Last Admin: 09/27/17 10:57 Dose: Not Given Magnesium Hydroxide (Milk Of Magnesia -) 30 ml PO DAILY PRN PRN Reason: CONSTIPATION Melatonin (Melatonin) 5 mg PO HS PRN PRN Reason: INSOMNIA Methadone HCl (Dolophine -) 15 mg PO ONCE ONE Stop: 09/27/17 23:59 Methadone HCl (Dolophine -) 5 mg PO ONCE@0600 ONE Stop: 09/30/17 23:59 Methadone HCl (Dolophine -) 15 mg PO ONCE ONE Stop: 09/28/17 23:59 Methadone HCl (Dolophine -) 10 mg PO ONCE ONE Stop: 09/29/17 10:01 Miscellaneous (Lidoderm Patch Removal) 1 each MC DAILY@2200 [facility] Last Admin: 09/26/17 22:49 Dose: Not Given Nadolol (Corgard -) 40 mg PO DAILY [facility] Last Admin: 09/27/17 10:43 Dose: 40 mg Oxycodone HCl (Roxicodone -) 10 mg PO Q6H PRN PRN Reason: PAIN LEVEL 6-10 Last Admin: 09/27/17 05:29 Dose: 10 mg Pantoprazole Sodium (Protonix -) 40 mg PO DAILY [facility] Last Admin: 09/27/17 10:42 Dose: 40 mg Rifaximin (Xifaxan -) 550 mg PO BID [facility] Last Admin: 09/27/17 10:42 Dose: 550 mg Spironolactone (Aldactone -) 75 mg PO BID [facility] Last Admin: 09/27/17 10:44 Dose: 75 mg Tamsulosin HCl (Flomax -) 0.4 mg PO [facility] Last Admin: 09/26/17 22:43 Dose: Not Given Thiamine HCl (Vitamin B1 -) 100 mg PO HS [facility] Last Admin: 09/26/17 22:44 Dose: 100 mg - Objective Vital Signs: Vital Signs Temperature 99.1 F 09/27/17 06:00 Pulse Rate 84 09/27/17 06:00 Respiratory Rate 22 09/27/17 06:00 Blood Pressure 101/61 09/27/17 06:00 O2 Sat by Pulse Oximetry (%) 91 L 09/26/17 21:00 Constitutional: Yes: Calm, Other Cardiovascular: Yes: Regular Rate and Rhythm Respiratory: Yes: Regular, CTA Bilaterally Gastrointestinal: Yes: Normal Bowel Sounds, Ascites Musculoskeletal: Yes: Other Wound/Incision: Yes: Dressing Dry and Intact Neurological: Yes: Alert, Other Labs: INR, PTT INR 1.67 (0.83-1.09) H 09/25/17 16:22 Assessment/Plan Patient is a 46 year old male with a significant past medical history of chronic ETOH abuse, heroin abuse, esophageal varicies, liver cirrhosis, small bowel obstruction, hepatitis C and right leg cellulitis for a chronic non healing wound. He was admitted on 09/24/17 for altered mental status and right leg wound infection with purulent drainage and worsening burning pain over the last 48 hours. He is also noted to have scrotal swelling. Patient admits to drinking approximately 4-5 beers every night with heroin use~ 5 bags. plan scrotal u/s noted wound infection noted on the leg plan abx consider tapping rest as per the team continue abx monitoring
[2017-09-27 11:35] LABS: ALBUMIN 2.3 g/dl (3.4-5.0); ANION GAP 6 (8-16); BILIRUBIN,TOTAL 2.1 mg/dL (0.2-1.0); BLOOD UREA NITROGEN 10 mg/dL (7-18); CALCIUM 8.1 mg/dL (8.5-10.1); CHLORIDE 104 mmol/L (98-107); CO2 29 mmol/L (21-32); CREATININE 0.6 mg/dL (0.7-1.3); GLUCOSE,RANDOM 82 mg/dL (74-106); POTASSIUM 3.4 mmol/L (3.5-5.1); SGOT/AST 43 U/L (15-37); SGPT/ALT 21 U/L (12-78); SODIUM 139 mmol/L (136-145); TOT PROT 7.2 g/dl (6.4-8.2)
[2017-09-27 11:36] LABS: ALK PHOS 176 U/L (45-117)
--- NOTE | 2017-09-27 12:22 | PN ---
Progress Note (short form) - Note Progress Note: [facility] Pt seen in wound care clinic long time back. Poor followup. Right lower extremity wound. Dressing changed. Wound has slough. Will start santyl. Question of possible transfer [facility]. Sen Garcia DO
[2017-09-27] MEDS: FUROSEMIDE 40 MG/4 ML INJECTABLE VIAL IVPB SCH (12:40)
--- NOTE | 2017-09-27 14:52 | PN ---
Progress Note (short form) - Note Progress Note: Subjective: The patient was seen and examined at the bedside, he has multiple complaints and is refusing almost all medications and procedures. Had paracentesis today with IR, 3L fluid removed Discussed case with Dr. Rios Toledo who will discuss possible transfer to [facility] with Dr. Fletcher Current Medications Generic Name Dose Route Start Last Admin Trade Name Freq PRN Reason Stop Dose Admin Acetaminophen 650 mg 09/25/17 05:49 09/26/17 17:18 Tylenol - PO 650 mg Q6H PRN Administration Fever Or Pain Albuterol Sulfate 2 puff 09/25/17 00:05 Ventolin Hfa Inhaler - IH Q4H PRN Dyspnea Budesonide/Formoterol Fumarate 2 puff 09/26/17 22:00 09/27/17 10:43 Symbicort 160/4.5mcg - IH 2 puff BID KENDRICK Administration Chlordiazepoxide HCl 15 mg 09/27/17 11:00 09/27/17 10:42 Librium - PO 09/28/17 05:01 15 mg [id number] KENDRICK Administration Chlordiazepoxide HCl 25 mg 09/25/17 09:14 Librium - PO 09/28/17 09:13 Q4H PRN WITHDRAWAL(CONT SUBST) Chlordiazepoxide HCl 10 mg 09/28/17 11:00 Librium - PO 09/29/17 05:01 [id number] KENDRICK Clindamycin HCl 300 mg 09/25/17 18:00 09/27/17 12:13 Cleocin - PO 300 mg Q6HPO KENDRICK Administration Collagenase 1 applic 09/27/17 12:30 Santyl - TP DAILY KENDRICK Protocol Ferrous Sulfate 325 mg 09/25/17 10:00 09/27/17 10:42 Feosol - PO 325 mg DAILY KENDRICK Administration Folic Acid 1 mg 09/25/17 10:00 09/27/17 10:42 Folic Acid - PO 1 mg DAILY KENDRICK Administration Furosemide 40 mg 09/25/17 10:00 09/27/17 12:40 Lasix Injection - IVPB Not Given DAILY KENDRICK Hydroxyzine Pamoate 50 mg 09/25/17 15:17 09/26/17 22:41 Vistaril - PO 50 mg Q4H PRN Administration AGITATION Cefepime HCl 1 gm in 50 mls @ 100 mls/hr 09/25/17 13:30 09/27/17 12:40 Maxipime 1 Gm Premix Ivpb IVPB Not Given Q8H-IV KENDRICK Protocol Lactobacillus Acidophilus 1 tab 09/25/17 10:00 09/27/17 10:42 Bacid - PO 1 tab DAILY KENDRICK Administration Lactulose 30 gm 09/25/17 10:00 09/27/17 10:43 Cephulac (Oral Use) PO 30 gm QID KENDRICK Administration Lidocaine 1 patch 09/25/17 10:00 09/27/17 10:57 Lidoderm Patch - TP Not Given DAILY KENDRICK Magnesium Hydroxide 30 ml 09/25/17 15:17 Milk Of Magnesia - PO DAILY PRN CONSTIPATION Melatonin 5 mg 09/25/17 22:00 Melatonin PO HS PRN INSOMNIA Methadone HCl 5 mg 09/30/17 06:00 Dolophine - PO 09/30/17 23:59 ONCE@0600 ONE Methadone HCl 15 mg 09/28/17 10:00 Dolophine - PO 09/28/17 23:59 ONCE ONE Methadone HCl 10 mg 09/29/17 10:00 Dolophine - PO 09/29/17 10:01 ONCE ONE Methadone HCl 15 mg 09/27/17 12:15 09/27/17 12:13 Dolophine - PO 09/27/17 23:59 15 mg ONCE ONE Administration Miscellaneous 1 each 09/25/17 22:00 09/26/17 22:49 Lidoderm Patch Removal MC Not Given DAILY@2200 KENDRICK Nadolol 40 mg 09/25/17 10:00 09/27/17 10:43 Corgard - PO 40 mg DAILY KENDRICK Administration Oxycodone HCl 10 mg 09/26/17 10:59 09/27/17 11:40 Roxicodone - PO 10 mg Q6H PRN Administration PAIN LEVEL 6-10 Pantoprazole Sodium 40 mg 09/25/17 10:00 09/27/17 10:42 Protonix - PO 40 mg DAILY KENDRICK Administration Rifaximin 550 mg 09/25/17 10:00 09/27/17 10:42 Xifaxan - PO 550 mg BID KENDRICK Administration Spironolactone 75 mg 09/25/17 10:00 09/27/17 10:44 Aldactone - PO 75 mg BID KENDRICK Administration Tamsulosin HCl 0.4 mg 09/25/17 22:00 09/26/17 22:43 Flomax - PO Not Given HS KENDRICK Thiamine HCl 100 mg 09/25/17 22:00 09/26/17 22:44 Vitamin B1 - PO 100 mg HS KENDRICK Administration Objective: Vital Signs Period Temp Pulse Resp BP Sys/Choi Pulse Ox Last 24 Hr 98.9 F-100.9 F 79-86 18-22 92-105/46-61 91-95 Physical Exam: General: NAD, jaundice, aggravated Lungs: Patient refused Heart: Patient refused Abd: Grossly distended. Midline scar Ext: RLE with dress, purulent drainage on dressing CBCD WBC 4.1 K/mm3 (4.0-10.0) 09/27/17 10:10 RBC 3.36 M/mm3 (4.00-5.60) L 09/27/17 10:10 Hgb 8.9 GM/dL (11.7-16.9) L 09/27/17 10:10 Hct 27.9 % (35.4-49) L 09/27/17 10:10 MCV 83.0 fl (80-96) 09/27/17 10:10 MCHC 32.0 g/dl (32.0-35.9) 09/27/17 10:10 RDW 18.6 % (11.9-15.9) H 09/27/17 10:10 Plt Count 51 K/MM3 (134-434) L D 09/27/17 10:10 MPV 7.9 fl (7.5-11.1) 09/27/17 10:10 CMP Sodium 139 mmol/L (136-145) 09/27/17 10:10 Potassium 3.4 mmol/L (3.5-5.1) L 09/27/17 10:10 Chloride 104 mmol/L (98-107) 09/27/17 10:10 Carbon Dioxide 29 mmol/L (21-32) 09/27/17 10:10 Anion Gap 6 (8-16) L 09/27/17 10:10 BUN 10 mg/dL (7-18) 09/27/17 10:10 Creatinine 0.6 mg/dL (0.7-1.3) L 09/27/17 10:10 Creat Clearance w eGFR > 60 (>60) 09/27/17 10:10 Random Glucose 82 mg/dL (74-106) 09/27/17 10:10 Calcium 8.1 mg/dL (8.5-10.1) L 09/27/17 10:10 Total Bilirubin 2.1 mg/dL (0.2-1.0) H 09/27/17 10:10 AST 43 U/L (15-37) H 09/27/17 10:10 ALT 21 U/L (12-78) 09/27/17 10:10 Alkaline Phosphatase 176 U/L (45-117) H D 09/27/17 10:10 Total Protein 7.2 g/dl (6.4-8.2) 09/27/17 10:10 Albumin 2.3 g/dl (3.4-5.0) L 09/27/17 10:10 Microbiology 09/24/17 18:11 Leg - Right Lower Gram Stain - Final 09/24/17 18:11 Leg - Right Lower Wound Culture - Preliminary Proteus Mirabilus - Esbl Produ Lactose Fermenting Neg Bacilli Non Lactose Fermenting Gnb Pending Organism Pending Organism#2 Assessment: This is a 47 year old male with PMHx ETOH abuse, heroin abuse, esophageal varices, liver cirrhosis, SBO, HCV, right leg cellulitis, who presented to the ED with AMS and right leg wound. Plan: 1) Right leg wound - Tmax 100.9 - F/u blood cultures - Continue Cefepime - Santyl: patient refusing - Appreciate vascular consult - Appreciate ID consult 2) Scrotal ascites - Scrotal support: patient has been refusing - Appreciate surgery consult 3) Liver cirrhosis with hepatic encephalopathy - Child Class C, Meld 16 - Paracetesis today, 3L removed - Discussed with Dr. Rios Toledo (liver transplant team at [facility]), possible transfer to [facility] for decompensated liver cirrhosis. Dr. Toledo to discuss with Dr. Fletcher - Elevated ammonia, downtrending, continue lactulose (patient has been refusing) - Continue Rifaximin - Discussed with patient alcohol abstinence - Appreciate GI consult 4) Chronic Thrombocytopenia - Platelets 51 today - Continue to trend 5) Acute alcohol and heroin withdrawal - Continue Methadone detox - Continue Libirum taper - Continue folic acid - Continue thiamine 6) F/E/N: - Sodium controlled diet - Hypokalemia: replete 7) Prophylaxis: - Hold all chemical DVT prophylaxis 2/2 thrombocytopenia 8) Dispo: - Patient accepted for transfer to [facility] under Dr. Henry. All information provided to Dr. Toledo. CODE STATUS: FULL CODE Visit type - Emergency Visit Emergency Visit: Yes ED Registration Date: 09/24/17 Care time: The patient presented to the Emergency Department on the above date and was hospitalized for further evaluation of their emergent condition. - New Patient This patient is new to me today: Yes Date on this admission: 09/27/17 - Critical Care Critical Care patient: No
[2017-09-27 16:09] LABS: TOTAL PROTEIN,PERITONEAL FLUID 2 gm/dL
[2017-09-27 16:40] LABS: PERITONEAL RBC 879 /mm3
[2017-09-27] MEDS: COLLAGENASE CLOSTRIDIUM HIST. 30 GRAMS TUBE TP SCH (16:41)
[2017-09-27 17:27] LABS: PERITONEAL FLUID EOSINOPHIL 4 %; PERITONEAL FLUID LYMPHOCYTE 22 %; PERITONEAL FLUID MACROPHAGE 40 %; PERITONEAL FLUID MESOTHELIAL 2 %; PERITONEAL FLUID MONOCYTE 27 %; PERITONEAL FLUID NEUTROPHIL 5 %
--- NOTE | 2017-09-27 18:17 | DS ---
Physical Examination Vital Signs: Vital Signs Temperature 100.1 F H 09/27/17 17:58 Pulse Rate 85 09/27/17 17:58 Respiratory Rate 18 09/27/17 17:58 Blood Pressure 116/55 09/27/17 17:58 O2 Sat by Pulse Oximetry (%) 95 09/27/17 10:40 Findings/Remarks: Physical Exam: General: NAD, jaundice, aggravated Lungs: Patient refused Heart: Patient refused Abd: Grossly distended. Midline scar Ext: RLE with dress, purulent drainage on dressing Labs: CBC, BMP 09/27/17 10:10 09/27/17 10:10 Discharge Summary Reason For Visit: HEPATIC CIRRHOSIS Current Active Problems Ascites (Acute) Hospital Course: This is a 47 year old male with PMHx ETOH abuse, heroin abuse, esophageal varices, liver cirrhosis, SBO, HCV, right leg cellulitis, who presented to the ED with AMS and right leg wound. Plan: 1) Right leg wound - Tmax 100.9 - F/u blood cultures - Continue Cefepime - Santyl: patient refusing - Appreciate vascular consult - Appreciate ID consult 2) Scrotal ascites - Scrotal support: patient has been refusing - Appreciate surgery consult 3) Liver cirrhosis with hepatic encephalopathy - Child Class C, Meld 16 - Paracetesis today, 3L removed - Discussed with Dr. Rios Toledo (liver transplant team at [facility]), possible transfer to [facility] for decompensated liver cirrhosis. Dr. Toledo to discuss with Dr. Fletcher - Elevated ammonia, downtrending, continue lactulose (patient has been refusing) - Continue Rifaximin - Continue Nadolol - Continue Spironolactone - Discussed with patient alcohol abstinence - Appreciate GI consult 4) Chronic Thrombocytopenia - Platelets 51 today - Continue to trend 5) Acute alcohol and heroin withdrawal - Continue Methadone detox - Continue Libirum taper - Continue folic acid - Continue thiamine The patient was accepted for transfer to [facility] under the care of liver transplant specialist Dr. Henry. Condition: Stable - Instructions Diet, Activity, Other Instructions: You are being transferred to [facility] under the care of Dr. Henry. Disposition: TRANSFER ACUTE CARE/OTHER HOSP - Home Medications Comprehensive Discharge Medication List: Ambulatory Orders Albuterol Sulfate Inhaler - [Ventolin HFA Inhaler -] 2 puff IH Q4H PRN #1 inhaler 02/15/17 Ferrous Sulfate [Feosol] 325 mg PO DAILY #30 tab 02/15/17 Fluticasone/Salmeterol [Advair Hfa 230-21 Mcg Inhaler] 2 puff IH BID #1 hfa.aer.ad 02/15/17 Folic Acid 1 mg PO DAILY #30 tablet 02/15/17 Furosemide [Lasix -] 40 mg PO BID@0600,1400 #60 tablet 02/15/17 Lactobacillus Combination No.4 [Probiotic] 1 each PO DAILY #30 capsule 02/15/17 Lactulose (Oral Use) [Cephulac -] 30 gm PO QID #120 dose 02/15/17 Lidocaine 5% Patch [Lidoderm Patch -] 1 patch TP DAILY #5 patch 02/15/17 Nadolol [Corgard -] 40 mg PO DAILY #30 tablet 02/15/17 Pantoprazole Sodium [Protonix] 40 mg PO DAILY #30 tablet.dr 02/15/17 Potassium Chloride [K-Dur -] 20 meq PO DAILY #3 tablet.er 02/15/17 Spironolactone [Aldactone -] 75 mg PO BID #60 tablet 02/15/17 Tamsulosin HCl [Flomax] 0.4 mg PO HS #30 cap.er.24h 02/15/17 This patient is new to me today: Yes Date on this admission: 09/27/17 Emergency Visit: Yes ED Registration Date: 09/24/17 Care time: The patient presented to the Emergency Department on the above date and was hospitalized for further evaluation of their emergent condition. Critical Care patient: No - Discharge Referral Referred to [facility] Med P.C.: No
[2017-09-27] MEDS ORDERED: POTASSIUM CHLORIDE TABS 20 MEQ TABLET.ER (FP) PO ONE (18:25)
[2017-09-27] MEDS: TAMSULOSIN HCL 0.4 MG CAP.ER.24H (FP) PO SCH (23:04)
[2017-09-27] MEDS: LIDOCAINE PATCH REMOVAL MC SCH (23:05)
[2017-09-27] MEDS: THIAMINE HCL 100 MG TABLET (FP) PO SCH (23:05)
[2017-09-28] MEDS: CEFEPIME HCL/D5W 1 GM/50 ML BAG IVPB SCH ×3 (02:51→17:13)
[2017-09-28] MEDS ORDERED: ACETAMINOPHEN 325 MG TABLET (FP) PO PRN (03:49)
[2017-09-28] MEDS ORDERED: chlordiazePOXIDE HCL 10 MG CAPSULE PO SCH (05:00)
[2017-09-28] MEDS: oxyCODONE HCL 5 MG TABLET PO PRN ×3 (05:26→17:37)
[2017-09-28] MEDS: CLINDAMYCIN HCL 150 MG CAPSULE (FP) PO SCH ×3 (05:27→17:18)
[2017-09-28] MEDS: chlordiazePOXIDE 5 MG CAPSULE PO SCH ×4 (05:59→22:55)
--- NOTE | 2017-09-28 08:50 | PN ---
Progress Note, Physician History of Present Illness: patient no new issues he has been c/o of pain distension of abd ascites liver failure fevers - Current Medication List Current Medications: Active Medications Acetaminophen (Tylenol -) 650 mg PO Q6H PRN PRN Reason: FEVER OR PAIN LEVEL 1-5 Albuterol Sulfate (Ventolin Hfa Inhaler -) 2 puff IH Q4H PRN PRN Reason: Dyspnea Budesonide/Formoterol Fumarate (Symbicort 160/4.5mcg -) 2 puff IH BID KENDRICK Last Admin: 09/27/17 23:05 Dose: Not Given Chlordiazepoxide HCl (Librium -) 25 mg PO Q4H PRN PRN Reason: WITHDRAWAL(CONT SUBST) Stop: 09/28/17 09:13 Chlordiazepoxide HCl (Librium -) 10 mg PO [id number] KENDRICK Stop: 09/29/17 05:01 Clindamycin HCl (Cleocin -) 300 mg PO Q6HPO KENDRICK Last Admin: 09/28/17 05:27 Dose: 300 mg Collagenase (Santyl -) 1 applic TP DAILY KENDRICK; Protocol Last Admin: 09/27/17 16:41 Dose: Not Given Ferrous Sulfate (Feosol -) 325 mg PO DAILY KENDRICK Last Admin: 09/27/17 10:42 Dose: 325 mg Folic Acid (Folic Acid -) 1 mg PO DAILY KENDRICK Last Admin: 09/27/17 10:42 Dose: 1 mg Furosemide (Lasix Injection -) 40 mg IVPB DAILY KENDRICK Last Admin: 09/27/17 12:40 Dose: Not Given Hydroxyzine Pamoate (Vistaril -) 50 mg PO Q4H PRN PRN Reason: AGITATION Last Admin: 09/26/17 22:41 Dose: 50 mg Cefepime HCl (Maxipime 1 Gm Premix Ivpb) 1 gm in 50 mls @ 100 mls/hr IVPB Q8H- IV KENDRICK; Protocol Last Admin: 09/28/17 02:51 Dose: 100 mls/hr Lactobacillus Acidophilus (Bacid -) 1 tab PO DAILY KENDRICK Last Admin: 09/27/17 10:42 Dose: 1 tab Lactulose (Cephulac (Oral Use)) 30 gm PO QID KENDRICK Last Admin: 09/27/17 22:59 Dose: Not Given Lidocaine (Lidoderm Patch -) 1 patch TP DAILY KENDRICK Last Admin: 09/27/17 10:57 Dose: Not Given Magnesium Hydroxide (Milk Of Magnesia -) 30 ml PO DAILY PRN PRN Reason: CONSTIPATION Melatonin (Melatonin) 5 mg PO HS PRN PRN Reason: INSOMNIA Methadone HCl (Dolophine -) 5 mg PO ONCE@0600 ONE Stop: 09/30/17 23:59 Methadone HCl (Dolophine -) 15 mg PO ONCE ONE Stop: 09/28/17 23:59 Methadone HCl (Dolophine -) 10 mg PO ONCE ONE Stop: 09/29/17 10:01 Methadone HCl (Dolophine -) 15 mg PO ONCE ONE Stop: 09/27/17 23:59 Last Admin: 09/27/17 12:13 Dose: 15 mg Miscellaneous (Lidoderm Patch Removal) 1 each MC DAILY@2200 [facility] Last Admin: 09/27/17 23:05 Dose: Not Given Nadolol (Corgard -) 40 mg PO DAILY [facility] Last Admin: 09/27/17 10:43 Dose: 40 mg Oxycodone HCl (Roxicodone -) 10 mg PO Q6H PRN PRN Reason: PAIN LEVEL 6-10 Last Admin: 09/28/17 05:26 Dose: 10 mg Pantoprazole Sodium (Protonix -) 40 mg PO DAILY [facility] Last Admin: 09/27/17 10:42 Dose: 40 mg Rifaximin (Xifaxan -) 550 mg PO BID [facility] Last Admin: 09/27/17 23:05 Dose: Not Given Spironolactone (Aldactone -) 75 mg PO BID [facility] Last Admin: 09/27/17 23:04 Dose: Not Given Tamsulosin HCl (Flomax -) 0.4 mg PO [facility] Last Admin: 09/27/17 23:04 Dose: Not Given Thiamine HCl (Vitamin B1 -) 100 mg PO [facility] Last Admin: 09/27/17 23:05 Dose: Not Given - Objective Vital Signs: Vital Signs Temperature 97.6 F 09/28/17 06:05 Pulse Rate 82 09/28/17 06:05 Respiratory Rate 16 09/28/17 06:05 Blood Pressure 93/55 09/28/17 06:05 O2 Sat by Pulse Oximetry (%) 95 09/27/17 21:00 Constitutional: Yes: Calm, Mild Distress Cardiovascular: Yes: Regular Rate and Rhythm Respiratory: Yes: Regular, Poor Air Entry Gastrointestinal: Yes: Ascites, Other (distenion) Genitourinary: Yes: Scrotal Edema, Other Musculoskeletal: Yes: WNL Extremities: Yes: Other Neurological: Yes: Alert Psychiatric: Yes: Alert Labs: CBC, BMP 09/27/17 10:10 09/27/17 10:10 INR, PTT INR 1.67 (0.83-1.09) H 09/25/17 16:22 Assessment/Plan Patient is a 46 year old male with a significant past medical history of chronic ETOH abuse, heroin abuse, esophageal varicies, liver cirrhosis, small bowel obstruction, hepatitis C and right leg cellulitis for a chronic non healing wound. He was admitted on 09/24/17 for altered mental status and right leg wound infection with purulent drainage and worsening burning pain over the last 48 hours. He is also noted to have scrotal swelling. plan scrotal u/s noted wound infection noted on the leg ascites liver failure pain plan wound cx noted if patient does not get txed to [facility] will change abx patient has been accepted under liver txp surgery team wound care rest continue current mgmt
[2017-09-28 08:56] LABS: BASO % 0.6 % (0-2.0); EOS % 3.7 % (0-4.5); HEMATOCRIT 24.8 % (35.4-49); HEMOGLOBIN 8.2 GM/dL (11.7-16.9); LYMPH % 19.2 % (8-40); MCH 27.2 pg (25.7-33.7); MCHC 33.1 g/dl (32.0-35.9); MEAN PLT VOLUME 7.4 fl (7.5-11.1); NEUT % 61.5 % (42.8-82.8); PLATELET COUNT 54 K/MM3 (134-434); RBC 3.02 M/mm3 (4.00-5.60); RDW 18.8 % (11.9-15.9); WHITE BLOOD COUNT 4.5 K/mm3 (4.0-10.0)
[2017-09-28 09:08] LABS: INR 1.73 (0.83-1.09); PROTHROMBIN TIME (PATIENT) 19.6 SEC (9.7-13.0)
[2017-09-28] MEDS ORDERED: NADOLOL 20 MG TABLET (FP) ONE (09:28)
[2017-09-28] MEDS ORDERED: PT OWN MED DRAWER 7, Y5N ONE (09:30)
[2017-09-28 09:41] LABS: ANION GAP 8 (8-16); BLOOD UREA NITROGEN 11 mg/dL (7-18); CALCIUM 7.7 mg/dL (8.5-10.1); CHLORIDE 108 mmol/L (98-107); CO2 27 mmol/L (21-32); CREATININE 0.7 mg/dL (0.7-1.3); GLUCOSE,RANDOM 74 mg/dL (74-106); POTASSIUM 3.9 mmol/L (3.5-5.1); SGOT/AST 37 U/L (15-37); SGPT/ALT 17 U/L (12-78); SODIUM 143 mmol/L (136-145)
[2017-09-28 09:43] LABS: ALK PHOS 142 U/L (45-117); BILIRUBIN,TOTAL 1.7 mg/dL (0.2-1.0); TOT PROT 6.5 g/dl (6.4-8.2)
[2017-09-28] MEDS ORDERED: METHADONE HCL 5 MG TABLET PO ONE ×3 (10:00→18:10)
--- NOTE | 2017-09-28 10:56 | PN ---
Progress Note (short form) - Note Progress Note: Subjective: The patient was seen and examined at the bedside, he has complaints of wanting cereal. Awaiting bed for transfer to [facility] Current Medications Generic Name Dose Route Start Last Admin Trade Name Freq PRN Reason Stop Dose Admin Acetaminophen 650 mg 09/28/17 03:49 Tylenol - PO Q6H PRN FEVER OR PAIN LEVEL 1-5 Albuterol Sulfate 2 puff 09/25/17 00:05 Ventolin Hfa Inhaler - IH Q4H PRN Dyspnea Budesonide/Formoterol Fumarate 2 puff 09/26/17 22:00 09/27/17 23:05 Symbicort 160/4.5mcg - IH Not Given BID KENDRICK Chlordiazepoxide HCl 10 mg 09/28/17 11:00 Librium - PO 09/29/17 05:01 [id number] KENDRICK Clindamycin HCl 300 mg 09/25/17 18:00 09/28/17 05:27 Cleocin - PO 300 mg Q6HPO KENDRICK Administration Collagenase 1 applic 09/27/17 12:30 09/27/17 16:41 Santyl - TP Not Given DAILY KENDRICK Protocol Ferrous Sulfate 325 mg 09/25/17 10:00 09/27/17 10:42 Feosol - PO 325 mg DAILY KENDRICK Administration Folic Acid 1 mg 09/25/17 10:00 09/27/17 10:42 Folic Acid - PO 1 mg DAILY KENDRICK Administration Furosemide 40 mg 09/25/17 10:00 09/27/17 12:40 Lasix Injection - IVPB Not Given DAILY KENDRICK Hydroxyzine Pamoate 50 mg 09/25/17 15:17 09/26/17 22:41 Vistaril - PO 50 mg Q4H PRN Administration AGITATION Cefepime HCl 1 gm in 50 mls @ 100 mls/hr 09/25/17 13:30 09/28/17 02:51 Maxipime 1 Gm Premix Ivpb IVPB 100 mls/hr Q8H-IV KENDRICK Administration Protocol Lactobacillus Acidophilus 1 tab 09/25/17 10:00 09/27/17 10:42 Bacid - PO 1 tab DAILY KENDRICK Administration Lactulose 30 gm 09/25/17 10:00 09/27/17 22:59 Cephulac (Oral Use) PO Not Given QID KENDRICK Lidocaine 1 patch 09/25/17 10:00 09/27/17 10:57 Lidoderm Patch - TP Not Given DAILY KENDRICK Magnesium Hydroxide 30 ml 09/25/17 15:17 Milk Of Magnesia - PO DAILY PRN CONSTIPATION Melatonin 5 mg 09/25/17 22:00 Melatonin PO HS PRN INSOMNIA Methadone HCl 5 mg 09/30/17 06:00 Dolophine - PO 09/30/17 23:59 ONCE@0600 ONE Methadone HCl 15 mg 09/28/17 10:00 Dolophine - PO 09/28/17 23:59 ONCE ONE Methadone HCl 10 mg 09/29/17 10:00 Dolophine - PO 09/29/17 10:01 ONCE ONE Methadone HCl 15 mg 09/27/17 12:15 09/27/17 12:13 Dolophine - PO 09/27/17 23:59 15 mg ONCE ONE Administration Miscellaneous 1 each 09/25/17 22:00 09/27/17 23:05 Lidoderm Patch Removal MC Not Given DAILY@2200 KENDRICK Nadolol 40 mg 09/25/17 10:00 09/27/17 10:43 Corgard - PO 40 mg DAILY KENDRICK Administration Oxycodone HCl 10 mg 09/26/17 10:59 09/28/17 05:26 Roxicodone - PO 10 mg Q6H PRN Administration PAIN LEVEL 6-10 Pantoprazole Sodium 40 mg 09/25/17 10:00 09/27/17 10:42 Protonix - PO 40 mg DAILY KENDRICK Administration Rifaximin 550 mg 09/25/17 10:00 09/27/17 23:05 Xifaxan - PO Not Given BID [facility] Spironolactone 75 mg 09/25/17 10:00 09/27/17 23:04 Aldactone - PO Not Given BID KENDRICK Tamsulosin HCl 0.4 mg 09/25/17 22:00 09/27/17 23:04 Flomax - PO Not Given HS [facility] Thiamine HCl 100 mg 09/25/17 22:00 09/27/17 23:05 Vitamin B1 - PO Not Given HS [facility] Objective: Vital Signs Period Temp Pulse Resp BP Sys/Choi Pulse Ox Last 24 Hr 97.6 F-100.1 F 79-88 16-22 93-116/52-68 95 Physical Exam: General: NAD, jaundice, aggravated Lungs: Patient refused Heart: Patient refused Abd: Slightly less distended than yesterday. Dressing c/d/i. Midline scar Ext: RLE with dress, c/d/i CBCD WBC 4.5 K/mm3 (4.0-10.0) 09/28/17 08:36 RBC 3.02 M/mm3 (4.00-5.60) L 09/28/17 08:36 Hgb 8.2 GM/dL (11.7-16.9) L 09/28/17 08:36 Hct 24.8 % (35.4-49) L 09/28/17 08:36 MCV 82.0 fl (80-96) 09/28/17 08:36 MCHC 33.1 g/dl (32.0-35.9) 09/28/17 08:36 RDW 18.8 % (11.9-15.9) H 09/28/17 08:36 Plt Count 54 K/MM3 (134-434) L 09/28/17 08:36 MPV 7.4 fl (7.5-11.1) L 09/28/17 08:36 CMP Sodium 143 mmol/L (136-145) 09/28/17 08:36 Potassium 3.9 mmol/L (3.5-5.1) 09/28/17 08:36 Chloride 108 mmol/L (98-107) H 09/28/17 08:36 Carbon Dioxide 27 mmol/L (21-32) 09/28/17 08:36 Anion Gap 8 (8-16) 09/28/17 08:36 BUN 11 mg/dL (7-18) 09/28/17 08:36 Creatinine 0.7 mg/dL (0.7-1.3) 09/28/17 08:36 Creat Clearance w eGFR > 60 (>60) 09/28/17 08:36 Random Glucose 74 mg/dL (74-106) 09/28/17 08:36 Calcium 7.7 mg/dL (8.5-10.1) L 09/28/17 08:36 Total Bilirubin 1.7 mg/dL (0.2-1.0) H 09/28/17 08:36 AST 37 U/L (15-37) 09/28/17 08:36 ALT 17 U/L (12-78) 09/28/17 08:36 Alkaline Phosphatase 142 U/L (45-117) H D 09/28/17 08:36 Total Protein 6.5 g/dl (6.4-8.2) 09/28/17 08:36 Albumin 2.0 g/dl (3.4-5.0) L 09/28/17 08:36 Microbiology 09/27/17 15:30 Peritoneal Fluid EVA Preparation - Preliminary 09/27/17 15:30 Peritoneal Fluid Fungal Culture - Preliminary 09/27/17 15:30 Peritoneal Fluid AFB Smear Concentration - Preliminary 09/27/17 15:30 Peritoneal Fluid Mycobacterial Culture - Preliminary 09/24/17 18:11 Leg - Right Lower Gram Stain - Final 09/24/17 18:11 Leg - Right Lower Wound Culture - Preliminary Proteus Mirabilus - Esbl Produ Lactose Fermenting Neg Bacilli Non Lactose Fermenting Gnb Diphtheroid/Corynebacterium Pending Organism#2 Assessment: This is a 47 year old male with PMHx ETOH abuse, heroin abuse, esophageal varices, liver cirrhosis, SBO, HCV, right leg cellulitis, who presented to the ED with AMS and right leg wound. Plan: 1) Right leg wound - Tmax 100.1 - F/u blood cultures (obtained on 09/27) - Continue Cefepime and Clindamycin - Santyl: patient refusing - Appreciate vascular consult - Appreciate ID consult 2) Scrotal ascites - Scrotal support: patient has been refusing - Appreciate surgery consult 3) Liver cirrhosis with hepatic encephalopathy - Child Class C, Meld 16 - Paracetesis today, 3L removed - Elevated ammonia, downtrending, continue lactulose (patient has been refusing) - Continue Rifaximin - Discussed with patient alcohol abstinence - Appreciate GI consult: Dr. Rivera aware of transfer 4) Chronic Thrombocytopenia - Platelets stable - Continue to trend 5) Acute alcohol and heroin withdrawal - Continue Methadone detox - Continue Libirum taper - Continue folic acid - Continue thiamine 6) F/E/N: - Sodium controlled diet - Hypokalemia: resolved 7) Prophylaxis: - Hold all chemical DVT prophylaxis 2/2 thrombocytopenia 8) Dispo: - Patient accepted for transfer to [facility] under Dr. Henry. All information provided to Dr. Toledo. CODE STATUS: FULL CODE Visit type - Emergency Visit Emergency Visit: Yes ED Registration Date: 09/24/17 Care time: The patient presented to the Emergency Department on the above date and was hospitalized for further evaluation of their emergent condition. - New Patient This patient is new to me today: No - Critical Care Critical Care patient: No
[2017-09-28] MEDS: LIDOCAINE 5% TOPICAL PATCH TP SCH (11:15)
[2017-09-28] MEDS: FUROSEMIDE 40 MG/4 ML INJECTABLE VIAL IVPB SCH ×2 (11:16→13:36)
[2017-09-28] MEDS: SPIRONOLACTONE 25 MG TABLET (FP) PO SCH ×3 (11:17→22:52)
[2017-09-28] MEDS: LACTOBACILLUS ACIDOPHILUS 1 TABLET PO SCH (11:17)
[2017-09-28] MEDS: LACTULOSE 20 GM/30 ML UDC (FOR ORAL USE ONLY) PO SCH ×4 (11:18→22:53)
[2017-09-28] MEDS: FOLIC ACID 1 MG TABLET (FP) PO SCH (11:19)
[2017-09-28] MEDS: FERROUS SO4 325 MG TABLET (FP) PO SCH (11:19)
[2017-09-28] MEDS: NADOLOL 40 MG TABLET (FP) PO SCH ×2 (11:28→13:36)
[2017-09-28] MEDS: PANTOPRAZOLE 40 MG TABLET (FP) PO SCH (11:29)
[2017-09-28] MEDS: RIFAXIMIN 550 MG TABLET (UD) PO SCH ×2 (11:31→22:54)
[2017-09-28] MEDS: BUDESONIDE/FORMETEROL FUMARATE 160/4.5 mcg INHALER IH SCH ×2 (11:31→22:53)
[2017-09-28 17:36] VITALS: TEMP 98.5
[2017-09-28] MEDS: COLLAGENASE CLOSTRIDIUM HIST. 30 GRAMS TUBE TP SCH (17:50)
[2017-09-28] MEDS: TAMSULOSIN HCL 0.4 MG CAP.ER.24H (FP) PO SCH (22:51)
[2017-09-28] MEDS: THIAMINE HCL 100 MG TABLET (FP) PO SCH (22:51)
[2017-09-28] MEDS: LIDOCAINE PATCH REMOVAL MC SCH (22:53)
[2017-09-29 01:22] VITALS: BP 107/67; PULSE 75
[2017-09-29] MEDS ORDERED: METHADONE HCL 10 MG TABLET PO ONE (10:00)
--- NOTE | 2017-09-29 16:56 | PATH ---
Cytology Non-Gynecological Report Patient Name: JAMESON CARTER [facility]. Rec. #: [id number] /Age/Gender: 1970 (Age: 47) / M Account: [id number] Location: [facility] MED/SURG Taken: 09/27/2017 Received: 09/29/2017 Reported: 09/29/2017 Physicians: Aurora Petit F.N.P. Specimen(s) Received PERITONEAL FLUID Clinical History Cirrhosis, ascites Final Diagnosis ABDOMINAL FLUID, RIGHT LOWER QUADRANT, PARACENTESIS: SATISFACTORY FOR EVALUATION. NO MALIGNANT CELLS IDENTIFIED. MESOTHELIAL CELLS AND LYMPHOCYTES PRESENT. Comment: Prior cytology is noted. Electronically Signed Camryn Edwards M.D. Gross Description Approximately 50 cc of brown fluid received fixed in 50% alcohol. Approximately 3000 cc of brown fluid received fresh. Two cytofunnels and one cellblock prepared.
[2017-09-30] MEDS ORDERED: METHADONE HCL 5 MG TABLET PO ONE (06:00)
== END 2017-09-28 23:20 | disposition short-term general hospital (02) | DRG 264 ==
LOC: JER 17:18 → JERBED 21:44 → UNDOADMIN 22:18 → J7W 23:39
PROVIDERS: ADMIT Internal Medicine; ATTEND Registered Nurse
PROC: HZ2ZZZZ Detoxification Services for Substance Abuse Treatment (ICD-10-PCS; 2017-09-25)
PROC: HZ81ZZZ Medication Management for Substance Abuse Treatment, Methadone Maintenance (ICD-10-PCS; 2017-09-25)
PROC: 0W9G3ZX Drainage of Peritoneal Cavity, Percutaneous Approach, Diagnostic (ICD-10-PCS; principal; 2017-09-27)
DX: K70.40 Alcoholic hepatic failure without coma (principal); K70.31 Alcoholic cirrhosis of liver with ascites; E46 Unspecified protein-calorie malnutrition; R64 Cachexia; L89.893 Pressure ulcer of other site, stage 3; K76.6 Portal hypertension; D69.59 Other secondary thrombocytopenia; L03.115 Cellulitis of right lower limb; E87.5 Hyperkalemia; E88.09 Other disorders of plasma-protein metabolism, not elsewhere classified; K70.11 Alcoholic hepatitis with ascites; I85.10 Secondary esophageal varices without bleeding; B96.4 Proteus (mirabilis) (morganii) as the cause of diseases classified elsewhere; F10.239 Alcohol dependence with withdrawal, unspecified; F11.23 Opioid dependence with withdrawal; E87.6 Hypokalemia; E66.9 Obesity, unspecified; Z68.31 Body mass index [BMI] 31.0-31.9, adult; R74.0 Nonspecific elevation of levels of transaminase and lactic acid dehydrogenase [LDH]; D64.9 Anemia, unspecified; N44.8 Other noninflammatory disorders of the testis; Z90.49 Acquired absence of other specified parts of digestive tract; K40.90 Unilateral inguinal hernia, without obstruction or gangrene, not specified as recurrent; I10 Essential (primary) hypertension; I86.8 Varicose veins of other specified sites; Z87.891 Personal history of nicotine dependence
CPT/HCPCS: 36415; 71045-TC-FY; 76705-TC; 76870-TC; 76942-TC; 80048; 80053; 82042; 82140; 82150; 82272; 82945; 83540; 83615; 83735; 84100; 84132; 84157; 85025; 85027; 85044; 85610; 87040; 87070; 87075; 87102; 87116; 87186; 87205; 87206; 87210; 88108; 88305-TC; 89051; 93005; 93010; 93970-TC; 99284-25; J1644

== ENCOUNTER 2018-07-22 21:22 | Inpatient (IN) | payer OTHER ==
[2018-07-22 21:33] VITALS: BMI 28.0
--- NOTE | 2018-07-22 21:59 | PDOC ---
History of Present Illness - General Chief Complaint: Pain, Acute Stated Complaint: ABD/PAIN Time Seen by Provider: 07/22/18 21:43 - History of Present Illness Initial Comments: 07/22/18 22:12 The patient is a 48 year old male with a PMH of HTN, Hep C, Liver Cirrhosis, ETOH abuse, Opioid abuse, SBOs, Acities, Chronic right lower extremity wound who presents for evaluation of abdominal pain. History is limited as the patient is a poor historian on exam. He reports a 2 week history of poorly described diffuse abdominal pain and increasing abdominal distension prompting his presentation to the ED for further evaluation. He reports generalized fatigue and weakness as well as nausea and vomiting. He reports subjective fevers and otherwise denies chills, SOB, chest pain, or changes with urination or bowel movements. Past History - Past Medical History Allergies/Adverse Reactions: Allergies Allergy/AdvReac Type Severity Reaction Status Date / Time morphine Allergy Verified 07/22/18 21:33 Home Medications: Ambulatory Orders Albuterol Sulfate Inhaler - [Ventolin HFA Inhaler -] 2 puff IH Q4H PRN #1 inhaler 02/15/17 Ferrous Sulfate [Feosol] 325 mg PO DAILY #30 tab 02/15/17 Fluticasone/Salmeterol [Advair Hfa 230-21 Mcg Inhaler] 2 puff IH BID #1 hfa.aer.ad 02/15/17 Folic Acid 1 mg PO DAILY #30 tablet 02/15/17 Furosemide [Lasix -] 40 mg PO BID@0600,1400 #60 tablet 02/15/17 Lactobacillus Combination No.4 [Probiotic] 1 each PO DAILY #30 capsule 02/15/17 Lactulose (Oral Use) [Cephulac -] 30 gm PO QID #120 dose 02/15/17 Lidocaine 5% Patch [Lidoderm Patch -] 1 patch TP DAILY #5 patch 02/15/17 Nadolol [Corgard -] 40 mg PO DAILY #30 tablet 02/15/17 Pantoprazole Sodium [Protonix] 40 mg PO DAILY #30 tablet. 02/15/17 Potassium Chloride [K-Dur -] 20 meq PO DAILY #3 tablet.er 02/15/17 Spironolactone [Aldactone -] 75 mg PO BID #60 tablet 02/15/17 Tamsulosin HCl [Flomax] 0.4 mg PO HS #30 cap.er.24h 02/15/17 Budesonide/Formeterol Fumarate [SYMBICORT 160/4.5mcg -] 2 puff IH BID inhaler 09/27/17 Chlordiazepoxide [Librium -] 10 mg PO [id number] capsule MDD 225mg 09/27/17 Chlordiazepoxide [Librium -] 15 mg PO [id number] capsule MDD 225mg 09/27/17 Chlordiazepoxide [Librium -] 25 mg PO Q4H PRN capsule MDD 225mg 09/27/17 Clindamycin [Cleocin -] 300 mg PO Q6HPO capsule 09/27/17 Furosemide Injection [Lasix Injection -] 40 mg IVPB DAILY vial 09/27/17 Lidocaine 5% Patch [Lidoderm -] 1 patch TP DAILY patch 09/27/17 Methadone [Dolophine -] 0 mg PO DAILY #1 tablet MDD see taper 09/27/17 Rifaximin [Xifaxan -] 550 mg PO BID tablet 09/27/17 Thiamine HCl [Vitamin B1 -] 100 mg PO HS tablet 09/27/17 hydrOXYzine PAMOATE [Vistaril -] 50 mg PO Q4H PRN capsule 09/27/17 oxyCODONE HCL [Roxicodone -] 10 mg PO Q6H PRN tablet MDD 40mg 09/27/17 Anemia: No Asthma: No Cancer: No Cardiac Disorders: No CVA: No COPD: No CHF: No DVT: No Dementia: No Diabetes: No Dialysis: No GI Disorders: Yes (GI BLEED, SBO) Disorders: No HTN: Yes Hypercholesterolemia: No Liver Disease: Yes (HEPATITS C,cirrhosis) Psychiatric Problems: Yes (anxiety) Seizures: No Thyroid Disease: No - Surgical History Abdominal Surgery: Yes (GI BLEED/HERNIA, Partial SBO resection) Appendectomy: No Cardiac Surgery: No Cholecystectomy: No Lung Surgery: No Neurologic Surgery: Yes Orthopedic Surgery: No - Immunization History Immunization Up to Date: Yes - Suicide/Smoking/Psychosocial Hx Smoking Status: Yes Smoking History: Unknown if ever smoked Have you smoked in the past 12 months: No Number of Cigarettes Smoked Daily: 3 If you are a former smoker, when did you quit?: 10yrs Information on smoking cessation initiated: No 'Breaking Loose' booklet given: 09/24/17 Hx Alcohol Use: Yes Drug/Substance Use Hx: No Substance Use Type: Alcohol, Heroin Hx Substance Use Treatment: (unobtainable) Review of Systems - Review of Systems Comments:: 07/22/18 22:16 Constitutional: Fevers, fatigue, generalized weakness. No chills, malaise HEENT: No Rhinorrhea, nasal congestion, visual changes Cardiovascular: No chest pain, syncope, palpitations, lightheadedness Respiratory: No Cough, SOB, Hemoptysis, Gastrointestinal: Abdominal pain, Nausea, Vomiting. No Constipation, Diarrhea, Melena Genitourinary: No Dysuria, Frequency, Urgency, Hesitancy, Hematuria, Flank pain Musculoskeletal: No Myalgia, arthralgia Skin: No rashes, itching, bruising, pallor Neurologic: No Headache, Dizziness, Numbness, Weakness, or Tingling Psychiatric: No Hallucinations. No SI or HI *Physical Exam - Vital Signs Last Vital Signs Temp Pulse Resp BP Pulse Ox 98.8 F 125 H 16 117/65 100 07/22/18 21:29 07/22/18 21:29 07/22/18 21:29 07/22/18 21:29 07/22/18 21:29 - Physical Exam Comments: 07/22/18 22:17 General Appearance: Nourished. Warm to the touch. In Moderate Apparent Distress HEENT: EOMI, REN. No Pharyngeal Erythema, Tonsillar Exudate, Tonsillar Erythema Neck: No Cervical Lymphadenopathy Respiratory/Chest: Lungs Clear, Normal Breath Sounds. No Crackles, Rales, Rhonchi, Wheezing Cardiovascular: Regular Rhythm, Regular Rate. No Murmur, Gallops, Rubs Gastrointestinal/Abdominal: Normal Bowel Sounds, Distended abdomen with fluid wave and diffuse discomfort with palpation. Cape medusum noted on abdomen. No Guarding, Rebound, Musculoskeletal: No CVA Tenderness Extremity: Right lower extremity wound with surrounding erythema and area of ulceration noted. 2+ pitting edema noted. Normal Capillary Refill Integumentary: Normal Color, Dry, Warm Neurologic: Fully Oriented, Alert, Normal Mood/Affect, Normal Response, ED Treatment Course - LABORATORY CBC & Chemistry Diagram: 07/22/18 22:30 07/22/18 22:30 Medical Decision Making - Medical Decision Making 07/22/18 22:19 The patient is a 48 year old male with a PMH of HTN, Hep C, Liver Cirrhosis, ETOH abuse, Opioid abuse, SBOs, Acities, Chronic right lower extremity wound who presents for evaluation of abdominal pain. Differential includes but is not limited to: SBP, Sepsis, Cellulitis, Infectious, Metabolic Derangement. Given the patient's history and physical exam, we will obtain a cbc, cmp, coags , ua, lipase, troponin, alcohol level, blood cultures, urine cultures, chest plain film, Urine tox to evaluate further. We will treat with iv tylenol, vanc and zosyn and continue to monitor and reassess while here in the ED. 07/22/18 23:18 cbc demonstrates a hgb of 7.8. Coags demonstrates an INR to 1.66. CMP is unremarkable. Lactate is elevated to 4.0. Chest plain film is unremarkable. We will defer performing a diagnostic parencentesis due to the patient's elevated INR and history of thrombocytopenia at this time. The patient will require admission for further monitoring and management. 07/22/18 23:59 We discussed the case with the admitting team who accepted the patient for admission. *DC/Admit/Observation/Transfer Diagnosis at time of Disposition: Cellulitis Qualifiers: Site of cellulitis: unspecified site Qualified Code(s): L03.90 - Cellulitis, unspecified Sepsis Qualifiers: Sepsis type: sepsis due to unspecified organism Qualified Code(s): A41.9 - Sepsis, unspecified organism - Discharge Dispostion Condition at time of disposition: Stable Decision to Admit order: Yes - Referrals - Patient Instructions - Post Discharge Activity
[2018-07-22 22:42] LABS: VENOUS PC02 36.2 mmHg (41-51); VENOUS PH 7.37 (7.31-7.41); VENOUS PO2 37.3 mmHg (30-40)
[2018-07-22 22:43] LABS: BASO % 0.8 % (0-2.0); EOS % 0.3 % (0-4.5); HEMATOCRIT 22.4 % (35.4-49); HEMOGLOBIN 7.8 GM/dL (11.7-16.9); LYMPH % 7.6 % (8-40); MCH 32.4 pg (25.7-33.7); MCHC 34.6 g/dl (32.0-35.9); MEAN CELL VOLUME 93.5 fl (80-96); MEAN PLT VOLUME 6.7 fl (7.5-11.1); MONO % 14.4 % (3.8-10.2); NEUT % 76.9 % (42.8-82.8); RDW 21.2 % (11.9-15.9); WHITE BLOOD COUNT 6.2 K/mm3 (4.0-10.0)
[2018-07-22] MEDS ORDERED: ACETAMINOPHEN 1000 MG/100 ML VIAL (NON FORMULARY) IVPB ONE (22:43)
[2018-07-22] MEDS ORDERED: VANCOMYCIN 1 GM in D5W (PRE-DOCKED) 1,000 MG/250 ML IVPB ONE (22:43)
[2018-07-22] MEDS ORDERED: PIPERACILLIN/TAZOB 4.5 GM 4.5 GM in DEXTROSE 5%-WATER 100 ML IVPB ONE (22:43)
[2018-07-22 22:55] LABS: INR 1.66 (0.83-1.09); PROTHROMBIN TIME (PATIENT) 19.7 SEC (9.7-13.0)
[2018-07-22 22:58] LABS: ACTIVATED PTT 36.9 SECONDS (25.2-36.5)
[2018-07-22] MEDS ORDERED: PIPERACILLIN/TAZOB 4.5 GM 4.5 GM/100 ML BAG IVPB ONE (22:59)
[2018-07-22] MEDS ORDERED: VANCOMYCIN 1 GRAM (PRE-DOCKED) 1,000 MG/250 ML BAG IVPB ONE (22:59)
[2018-07-22] MEDS ORDERED: ACETAMINOPHEN INJECTION 100 ML IVPB ONE (22:59)
[2018-07-22 23:11] LABS: BILIRUBIN,TOTAL 2.9 mg/dL (0.2-1); BLOOD UREA NITROGEN 24.4 mg/dL (7-18); CALCIUM 7.7 mg/dL (8.5-10.1); CREATININE 0.7 mg/dL (0.55-1.3); POTASSIUM 5.1 mmol/L (3.5-5.1); TOT PROT 5.5 g/dl (6.4-8.2)
[2018-07-22] MEDS ORDERED: SODIUM CHLORIDE 1,000 ML IV STA (23:13)
--- NOTE | 2018-07-22 23:25 | PN ---
Teaching Attending Note Name of Resident: Jesus Hoang ATTENDING PHYSICIAN STATEMENT I saw and evaluated the patient. I reviewed the resident's note and discussed the case with the resident. I agree with the resident's findings and plan as documented. SUBJECTIVE: The patient is a 48 year old male with a PMH of HTN, Hep C, Liver Cirrhosis, ETOH abuse, polysubstance abuse, SBOs, Ascites, Chronic right lower extremity wound who presents for evaluation of abdominal pain. History is limited as the patient is a poor historian on exam. He reports a 2 week history of poorly described diffuse abdominal pain and increasing abdominal distension prompting his presentation to the ED for further evaluation. He reports generalized fatigue and weakness as well as nausea and vomiting. He reports subjective fevers and otherwise denies chills, SOB, chest pain, or changes with urination or bowel movements. OBJECTIVE: Somnolent but readily arousable Vital Signs Period Temp Pulse Resp BP Sys/Choi Pulse Ox Last 24 Hr 98.8 F-99.0 F 119-125 16 112-117/65-82 97-100 HEENT: Tinge of jaundice, eye redness or discharge, PERRLA, EOMI. Normocephalic , atraumatic. External ears are normal and hearing is grossly intact. No nasal discharge. Neck: Supple, nontender. No palpable adenopathy or thyromegaly. No JVD Chest: Good effort. Clear to auscultation and percussion. Heart: Tachycardia. No S3, rub or murmur Abdomen: Distended, soft, nontender and no HSM. No rebound or guarding. Normal bowel sounds. Ext: Peripheral pulses intact. Right leg ulcer with circumferencial erythema. Leg edema. Right inguinal hernia and large Scrotam - nontender. Skin: Warm and dry. No petechiae, rash or ecchymosis. Neuro: Somnolent but arousable. Unable to consistently keep his eyes open. Unable to follow commands - can't raise hands to check for asterexis or tremors. Moving all limbs. DTR are symmetric. Plantar reflexes are flexor. Gait not tested for safety reasons. Psych: Appropriate affect. Poor insight. Current Medications Generic Name Dose Route Start Last Admin Trade Name Freq PRN Reason Stop Dose Admin Sodium Chloride 1,000 mls @ 1,000 mls/hr 07/22/18 23:13 07/22/18 23:23 Normal Saline - IV 07/23/18 00:12 1,000 mls/hr ASDIR STA Administration Home Medications Medication Instructions Recorded Albuterol Sulfate Inhaler - 2 puff IH Q4H PRN #1 inhaler 02/15/17 [Ventolin HFA Inhaler -] Ferrous Sulfate [Feosol] 325 mg PO DAILY #30 tab 02/15/17 Fluticasone/Salmeterol [Advair Hfa 2 puff IH BID #1 hfa.aer.ad 02/15/17 230-21 Mcg Inhaler] Folic Acid 1 mg PO DAILY #30 tablet 02/15/17 Furosemide [Lasix -] 40 mg PO BID@0600,1400 #60 tablet 02/15/17 Lactobacillus Combination No.4 1 each PO DAILY #30 capsule 02/15/17 [Probiotic] Lactulose (Oral Use) [Cephulac -] 30 gm PO QID #120 dose 02/15/17 Lidocaine 5% Patch [Lidoderm Patch 1 patch TP DAILY #5 patch 02/15/17 -] Nadolol [Corgard -] 40 mg PO DAILY #30 tablet 02/15/17 Pantoprazole Sodium [Protonix] 40 mg PO DAILY #30 tablet.dr 02/15/17 Potassium Chloride [K-Dur -] 20 meq PO DAILY #3 tablet.er 02/15/17 Spironolactone [Aldactone -] 75 mg PO BID #60 tablet 02/15/17 Tamsulosin HCl [Flomax] 0.4 mg PO HS #30 cap.er.24h 02/15/17 Budesonide/Formeterol Fumarate 2 puff IH BID inhaler 09/27/17 [SYMBICORT 160/4.5mcg -] Chlordiazepoxide [Librium -] 10 mg PO [id number] capsule MDD 225mg 09/27/17 Chlordiazepoxide [Librium -] 15 mg PO [id number] capsule MDD 225mg 09/27/17 Chlordiazepoxide [Librium -] 25 mg PO Q4H PRN capsule MDD 225mg 09/27/17 Clindamycin [Cleocin -] 300 mg PO Q6HPO capsule 09/27/17 Furosemide Injection [Lasix 40 mg IVPB DAILY vial 09/27/17 Injection -] Lidocaine 5% Patch [Lidoderm -] 1 patch TP DAILY patch 09/27/17 Methadone [Dolophine -] 0 mg PO DAILY #1 tablet MDD see 09/27/17 taper Rifaximin [Xifaxan -] 550 mg PO BID tablet 09/27/17 Thiamine HCl [Vitamin B1 -] 100 mg PO HS tablet 09/27/17 hydrOXYzine PAMOATE [Vistaril -] 50 mg PO Q4H PRN capsule 09/27/17 oxyCODONE HCL [Roxicodone -] 10 mg PO Q6H PRN tablet MDD 40mg 09/27/17 Abnormal Lab Results 07/22/18 07/22/18 07/22/18 22:30 22:30 22:30 RBC 2.40 L Hgb 7.8 L Hct 22.4 L RDW 21.2 H MPV 6.7 L Lymphocytes % 7.6 L D Monocytes % 14.4 H PT with INR 19.70 H INR 1.66 H PTT (Actin FS) 36.9 H POC VBG pCO2 36.2 L VBG HCO3 20.6 L VBG O2 Sat (Michael) 60.5 L VBG Base Excess -3.6 L Chloride Anion Gap BUN Lactic Acid Calcium Total Bilirubin AST Alkaline Phosphatase Total Protein Albumin 07/22/18 07/22/18 22:30 22:30 RBC Hgb Hct RDW MPV Lymphocytes % Monocytes % PT with INR INR PTT (Actin FS) POC VBG pCO2 VBG HCO3 VBG O2 Sat (Michael) VBG Base Excess Chloride 108 H Anion Gap 6 L BUN 24.4 H Lactic Acid 4.0 H* Calcium 7.7 L Total Bilirubin 2.9 H AST 110 H Alkaline Phosphatase 170 H Total Protein 5.5 L Albumin 2.0 L ASSESSMENT AND PLAN: 1. AMS/Hepatic encephalopathy - Hepatic encephalopathy is the most likely primary reason for his AMS, with other contributing factors like illicit drugs, sepsis and anemia. He denies abdominal pain - peritonitis less likely and he may have type B lactic acidosis. Sepsis work up done and he was started on Vancomycin and Zosyn in the ER. CXR shows lower lobe haziness and EKG is sinus tachycardia with no significant ST-T wave changes. Will commence treatment with lactulose and rifaximin and give one dose of Narcan. If he is unable to swallow lactulose then will give per rectum. Continue IV fluids and trend lactic acid level, platelets and LFTs. Will get head/chest/abd/pelvis CT, ammonia level, urinalysis, urine toxicology screen, scrotal sonogram, wound culture of right leg wound and type&hold PRBC. Consult IR for diagnostic paracentesis and consult GI. Consult Wound Care for right leg ulcer and continue daily wound care. 2. Hypoalbuminemia - Possibly due to combined effects of malnutrition and inflammation associated with comorbid chronic conditions. 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 3. Anemia - Likely multifactorial. Will exclude acute GI bleeding. Do basic anemia work up including serial stool guaiacs, reticulocyte count and iron studies. Type and hold PRBC. 4. Alcohol/Polysubstance abuse - Monitor closely for drug withdrawal. Implement BRNADONWA ativan alcohol withdrawal protocol and do neurochecks. Implement seizure, fall and aspiration precautions. Treat with thiamine and folic acid and monitor electrolytes (Ca,Mg,K,P). Counseled patient about abstaining from alcohol and illicit drug use. Will consult energy specialist and refer to alcohol/drug detox upon discharge. 5. DVT prophylaxis - Lovenox 40 mg SQ q 24 hours. 6. Advance directives - Full code
[2018-07-22 23:39] LABS: PLATELET COUNT 107 K/MM3 (134-434)
[2018-07-22 23:40] LABS: PLATELET ESTIMATE DECREASED
[2018-07-22 23:41] LABS: ANISOCYTOSIS 1+
[2018-07-23] MEDS ORDERED: LACTULOSE 20 GM/30 ML UDC (FOR ORAL USE ONLY) PO SCH (00:45)
--- NOTE | 2018-07-23 01:43 | HP ---
CHIEF COMPLAINT: Abdominal Pain PCP: HISTORY OF PRESENT ILLNESS: Pt. is a 48 y.o. M w/ PMHx. of HTN, Hep C (treated in the [place]?), Cirrhosis, Polysubstance abuse (Cocaine, EtOH, Heroin- IV and inhalation), ascites, chronic RLE wound presenting for altered mental status. Pt. is a poor historian. Pt. states that he has been having abdominal pain for 2 weeks but does not know why he is here. He states that his sister told him to come to the ED because he had been having abdominal pain. Pt. state that he took 2 Advil each day for the last few days because of the pain and denies the possibility of taking any more pain medications. Pt. states he vomited earlier today but denies the presence of blood. He endorses picking his nose and having some blood come out. Pt. endorses some shortness of breath but denies chest pain or cough at this time. Pt. states he is compliant with his medications and takes it everyday as prescribed. Pt. states that he took his lactulose and had 3 or 4 BMs yesterday. ER course was notable for: (1)BCx. WCx., Vanc, Zosyn, (2)IV Tylenol, 1L NS (3) Recent Travel: No PAST MEDICAL HISTORY: As above. PAST SURGICAL HISTORY: Hernia Repair Social History: Smoking: Denies Alcohol: Denies currently, did not specify how much and refusing to answer when was last drink Drugs: Heroin-IV and inhalation, cocaine, and benzos (from chart review) Family History: Did not ask. Allergies morphine Allergy (Verified 07/22/18 21:33) HOME MEDICATIONS: Home Medications Medication Instructions Recorded Albuterol Sulfate Inhaler - 2 puff IH Q4H PRN #1 inhaler 02/15/17 [Ventolin HFA Inhaler -] Ferrous Sulfate [Feosol] 325 mg PO DAILY #30 tab 02/15/17 Fluticasone/Salmeterol [Advair Hfa 2 puff IH BID #1 hfa.aer.ad 02/15/17 230-21 Mcg Inhaler] Folic Acid 1 mg PO DAILY #30 tablet 02/15/17 Furosemide [Lasix -] 40 mg PO BID@0600,1400 #60 tablet 02/15/17 Lactobacillus Combination No.4 1 each PO DAILY #30 capsule 02/15/17 [Probiotic] Lactulose (Oral Use) [Cephulac -] 30 gm PO QID #120 dose 02/15/17 Lidocaine 5% Patch [Lidoderm Patch 1 patch TP DAILY #5 patch 02/15/17 -] Nadolol [Corgard -] 40 mg PO DAILY #30 tablet 02/15/17 Pantoprazole Sodium [Protonix] 40 mg PO DAILY #30 tablet.dr 02/15/17 Potassium Chloride [K-Dur -] 20 meq PO DAILY #3 tablet.er 02/15/17 Spironolactone [Aldactone -] 75 mg PO BID #60 tablet 02/15/17 Tamsulosin HCl [Flomax] 0.4 mg PO HS #30 cap.er.24h 02/15/17 Budesonide/Formeterol Fumarate 2 puff IH BID inhaler 09/27/17 [SYMBICORT 160/4.5mcg -] Chlordiazepoxide [Librium -] 10 mg PO [id number] capsule MDD 225mg 09/27/17 Chlordiazepoxide [Librium -] 15 mg PO [id number] capsule MDD 225mg 09/27/17 Chlordiazepoxide [Librium -] 25 mg PO Q4H PRN capsule MDD 225mg 09/27/17 Clindamycin [Cleocin -] 300 mg PO Q6HPO capsule 09/27/17 Furosemide Injection [Lasix 40 mg IVPB DAILY vial 09/27/17 Injection -] Lidocaine 5% Patch [Lidoderm -] 1 patch TP DAILY patch 09/27/17 Methadone [Dolophine -] 0 mg PO DAILY #1 tablet MDD see 09/27/17 taper Rifaximin [Xifaxan -] 550 mg PO BID tablet 09/27/17 Thiamine HCl [Vitamin B1 -] 100 mg PO HS tablet 09/27/17 hydrOXYzine PAMOATE [Vistaril -] 50 mg PO Q4H PRN capsule 09/27/17 oxyCODONE HCL [Roxicodone -] 10 mg PO Q6H PRN tablet MDD 40mg 09/27/17 REVIEW OF SYSTEMS As above PHYSICAL EXAMINATION Vital Signs - 24 hr 07/22/18 07/22/18 07/22/18 21:29 21:33 21:55 Temperature 98.8 F 99.0 F Pulse Rate 125 H Pulse Rate [ 119 H Right Radial] Respiratory 16 Rate Blood Pressure 117/65 Blood Pressure 112/82 [Right Arm] O2 Sat by Pulse 100 97 98 Oximetry (%) GENERAL: Somnolent, and oriented to name only, in mild distress. HEAD: Normal with no signs of trauma. EYES: Pupils equal, round and reactive to light, extraocular movements intact, sclera anicteric, conjunctiva clear. EARS, NOSE, THROAT: Ears normal, nares patent, oropharynx clear without exudates. Moist mucous membranes. LUNGS: Breath sounds equal, clear to auscultation bilaterally. No wheezes, and no crackles. No accessory muscle use. HEART: Regular rate and rhythm, normal S1 and S2 without murmur ABDOMEN: Soft, nontender, distended, surgical scar midline, normoactive bowel sounds, no guarding, no rebound, no masses. MUSCULOSKELETAL: Normal range of motion at all joints. No bony deformities or tenderness. No CVA tenderness. UPPER EXTREMITIES: 1+ radial pulses, warm, well-perfused. No cyanosis. No clubbing. No peripheral edema. [place] + LOWER EXTREMITIES: 2+ pulses, warm, well-perfused. No calf tenderness. 3+ b/l edema. RLE ulcer- erythematous, non-draining NEUROLOGICAL: Pt. states that he said something hen asked questions, defensive PSYCHIATRIC: Uncooperative. Agitated, SKIN: Warm, dry Laboratory Results - last 24 hr 07/22/18 07/22/18 07/22/18 22:30 22:30 22:30 WBC 6.2 RBC 2.40 L Hgb 7.8 L Hct 22.4 L MCV 93.5 MCH 32.4 D MCHC 34.6 RDW 21.2 H Plt Count 107 L D MPV 6.7 L Absolute Neuts (auto) 4.7 Neutrophils % 76.9 D Lymphocytes % 7.6 L D Monocytes % 14.4 H Eosinophils % 0.3 D Basophils % 0.8 Nucleated RBC % 0 Platelet Estimate Decreased Platelet Comment No clumping noted Anisocytosis 1+ PT with INR 19.70 H INR 1.66 H PTT (Actin FS) 36.9 H VBG pH 7.37 POC VBG pCO2 36.2 L POC VBG pO2 37.3 VBG HCO3 20.6 L VBG O2 Sat (Michael) 60.5 L VBG Base Excess -3.6 L Sodium Potassium Chloride Carbon Dioxide Anion Gap BUN Creatinine Est GFR (CKD-EPI)AfAm Est GFR (CKD-EPI)NonAf Random Glucose Lactic Acid Calcium Total Bilirubin AST ALT Alkaline Phosphatase LD Total Troponin I Total Protein Albumin Lipase Alcohol, Quantitative 07/22/18 07/22/18 07/22/18 22:30 22:30 22:30 WBC RBC Hgb Hct MCV MCH MCHC RDW Plt Count MPV Absolute Neuts (auto) Neutrophils % Lymphocytes % Monocytes % Eosinophils % Basophils % Nucleated RBC % Platelet Estimate Platelet Comment Anisocytosis PT with INR INR PTT (Actin FS) VBG pH POC VBG pCO2 POC VBG pO2 VBG HCO3 VBG O2 Sat (Michael) VBG Base Excess Sodium 136 Potassium 5.1 Chloride 108 H Carbon Dioxide 22 Anion Gap 6 L BUN 24.4 H Creatinine 0.7 Est GFR (CKD-EPI)AfAm 130.25 Est GFR (CKD-EPI)NonAf 112.38 Random Glucose 89 Lactic Acid 4.0 H* Calcium 7.7 L Total Bilirubin 2.9 H AST 110 H ALT 43 Alkaline Phosphatase 170 H LD Total Troponin I 0.03 Total Protein 5.5 L Albumin 2.0 L Lipase Alcohol, Quantitative 07/22/18 07/22/18 23:45 23:45 WBC RBC Hgb Hct MCV MCH MCHC RDW Plt Count MPV Absolute Neuts (auto) Neutrophils % Lymphocytes % Monocytes % Eosinophils % Basophils % Nucleated RBC % Platelet Estimate Platelet Comment Anisocytosis PT with INR INR PTT (Actin FS) VBG pH POC VBG pCO2 POC VBG pO2 VBG HCO3 VBG O2 Sat (Michael) VBG Base Excess Sodium Potassium Chloride Carbon Dioxide Anion Gap BUN Creatinine Est GFR (CKD-EPI)AfAm Est GFR (CKD-EPI)NonAf Random Glucose Lactic Acid Calcium Total Bilirubin AST ALT Alkaline Phosphatase LD Total 345 H Troponin I Total Protein Albumin Lipase 153 Alcohol, Quantitative 7.6 H ASSESSMENT/PLAN: Pt. is a 48 y.o. M w/ PMHx. of HTN, Hep C (treated in the [place]?), Cirrhosis, Polysubstance abuse (Cocaine, EtOH, Heroin- IV and inhalation), ascites, chronic RLE wound presenting for altered mental status. #Acute Hepatic Encephalopathy c/w Rifaximin 550mg BID Increased Lactulose to 30ml Q6H to achieve 4-5 BMs f/u CT Head, Chest, Abdomen and Pelvis MELD: 17; MADDREY: 38.3 --> may benefit from steroids however Pt. appears poorly compliant and we cannot rule out a GI bleed at this time. CIWA: 17; will continue to monitor components of exam may be due to encephalopathy EtOH level: 7.6, AST: 110, ALT: 43 BUN: 24.4 NH3: 194 LDH: 345 #Liver Cirrhosis w/ ascites, esophageal varices, lower extremity edema and scrotal swelling c/w Thiamine and Folic Acid c/w Lasix 40mg BID c/w Aldactone and Nadolol Albumin: 2.0 ID consult appreciated for RLE wound, given Vanc and Zosyn in ED, however Pt. does not appear to be septic at this time, would consider discontinuing. #Hemolytic? Anemia vs. Anemia of chronic Disease Elevated BUN and T Bili HgB: 7.8, normal transfusion threshold Partially 2/2 hepatorenal syndrome and partially 2/2 to UGI bleed, as Pt. endorses taking advil for a few days at home and vomiting at home Pt. had ?coffee ground vs. bilious emesis in the ED. f/u Rpt. CBC #FEN no IVF, given fluid retention would be cautious with hydration. Limit fluids to 1 liter per day. monitor electrolytes and treat as needed NPO for tonight can start Na restricted diet in AM #DVT Ppx. Hold AC, given suspicion for GI bleed, may resum in AM pending results. Visit type - Emergency Visit Emergency Visit: Yes ED Registration Date: 07/22/18 Care time: The patient presented to the Emergency Department on the above date and was hospitalized for further evaluation of their emergent condition. - New Patient This patient is new to me today: Yes Date on this admission: 07/23/18 - Critical Care Critical Care patient: No
[2018-07-23] MEDS ORDERED: ISOSORBIDE MONONITRATE 60 MG TAB.SR.24H (FP) PO ONE (01:51)
[2018-07-23] MEDS ORDERED: PANTOPRAZOLE SODIUM 40 MG VIAL IVPB ONE (03:35)
--- NOTE | 2018-07-23 05:45 | PDOC ---
Documentation entered by Denny Gandhi SCRIBE, acting as scribe for Jocelyn Mason MD. Jocelyn Mason MD: This documentation has been prepared by the Hiram clarke Daniel, SCRIBE, under my direction and personally reviewed by me in its entirety. I confirm that the documentation accurately reflects all work, treatment, procedures, and medical decision making performed by me. Attending Attestation - Resident Resident Name: Denny Johnson - ED Attending Attestation I have performed the following: I have examined & evaluated the patient, The case was reviewed & discussed with the resident, I agree w/resident's findings & plan - HPI HPI: 07/22/18 22:20 The patient is a 48 year old male with a past medical history of HTN, cirrhosis , alcohol abuse, ascites, esophageal varices, and Hepatitis C here today for evaluation of abdominal pain. Patient is a poor historian and was not able to provide many details. He reports 2 weeks of diffuse abdominal pain and distention. He also notes nausea and vomiting. Patient also has a chronic right lower extremity wound. Patient denies headache, lightheadedness. Denies chills. Denies chest pain, shortness of breath. Denies diarrhea. Allergies: morphine - Physicial Exam PE: 07/22/18 23:05 GENERAL: +febrile to touch. Somnolent but arousable in no acute distress HEAD: No signs of trauma EYES: PERRLA, EOMI, sclera anicteric, conjunctiva clear ENT: Auricles normal inspection, hearing grossly normal, nares patent, oropharynx clear without exudates. Moist mucosa NECK: Normal ROM, supple, no lymphadenopathy, JVD, or masses LUNGS: Breath sounds equal, clear to auscultation bilaterally. No wheezes, and no crackles HEART: Regular rate and rhythm, normal S1 and S2, no murmurs, rubs or gallops ABDOMEN: +increased bowel sounds. +distention. Soft, nontender. No guarding, no rebound. No masses GENITOURINARY: +right inguinal hernia. +testicles size of grapefruits. EXTREMITIES: +right lower leg has various stages of healing of chronic wounds, worst is 10x8 cm L shaped wound. +10x8 cm L shaped ulcerated wound on lateral aspect of right lower leg with thickened skin. Normal range of motion. No clubbing or cyanosis. NEUROLOGICAL: Cranial nerves II through XII grossly intact. Normal speech, normal gait SKIN: +secondary skin changes of liver failure on chest and abdomen. +anasarca. Warm, Dry, normal turgor - Medical Decision Making 07/23/18 02:33 Patient Name: JAMESON CARTER THIS IS A PRELIMINARY REPORT FROM [facility] [facility] [facility] DATE OF SERVICE: 2018-07-23 01:15:14 IMAGES: 29 EXAM: Ultrasound testicles and testicular duplex HISTORY: Edema COMPARISON: None. FINDINGS: Ultrasound testicles:The right testicle measures 2.7 x 2.0 x 2.5 cm, appears normal and demonstrates normal flow. Normal right epididymis. No hydrocoele or varicocoele. 07/23/18 02:47 Lactic acid went from 4.0 to 2.8 07/23/18 05:42 Pt will be admitted to telemetry.
[2018-07-23] MEDS: OCTREOTIDE ACETATE 200 MCG, OCTREOTIDE ACETATE 1,000 MCG in DEXTROSE 5%-WATER - 496 ML IVPB SCH (05:52)
[2018-07-23] MEDS: LACTULOSE 20 GM/30 ML UDC (FOR ORAL USE ONLY) PO SCH ×4 (06:55→19:06)
[2018-07-23 07:01] LABS: BASO % 1.1 % (0-2.0); EOS % 0.4 % (0-4.5); HEMATOCRIT 22.3 % (35.4-49); HEMOGLOBIN 7.8 GM/dL (11.7-16.9); LYMPH % 12.1 % (8-40); MCH 32.6 pg (25.7-33.7); MEAN CELL VOLUME 93.1 fl (80-96); MONO % 19.2 % (3.8-10.2); NEUT % 67.2 % (42.8-82.8); PLATELET COUNT 94 K/MM3 (134-434); RDW 21.9 % (11.9-15.9); WHITE BLOOD COUNT 6.1 K/mm3 (4.0-10.0)
[2018-07-23 07:50] LABS: CALCIUM 7.3 mg/dL (8.5-10.1); CREATININE 0.7 mg/dL (0.55-1.3); MAGNESIUM 2.3 mg/dL (1.8-2.4); POTASSIUM 5.1 mmol/L (3.5-5.1)
[2018-07-23 09:09] LABS: URINE APPEARANCE CLEAR; URINE BILIRUBIN NEGATIVE (NEGATIVE); URINE COLOR DK YELLOW; URINE GLUCOSE (UA) NEGATIVE (NEGATIVE); URINE KETONE TRACE (NEGATIVE); URINE LEUK ESTERASE NEGATIVE (NEGATIVE); URINE NITRITE NEGATIVE (NEGATIVE); URINE PROTEIN NEGATIVE (NEGATIVE); URINE UROBILINOGEN 0.2 mg/dL (0.2-1.0)
[2018-07-23 09:23] LABS: COCAINE, UR NEGATIVE ng/ml (CUTOFF=300); METHADONE, UR NEGATIVE ng/ml (CUTOFF=300); PHENCYCLIDINE,URINE NEGATIVE ng/ml (CUTOFF=25); URINE AMPHETAMINES NEGATIVE ng/ml (CUTOFF=500); URINE BARBITURATES NEGATIVE ng/ml (CUTOFF=200); URINE BENZODIAZEPINES NEGATIVE ng/ml (CUTOFF=200)
[2018-07-23 09:42] LABS: OPIATES, URI POSITIVE ng/ml (CUTOFF=300)
[2018-07-23] MEDS ORDERED: SODIUM PHOSPHATE - 0 MM in DEXTROSE 5%-WATER - 250 ML IVPB ONE (09:42)
[2018-07-23] MEDS ORDERED: SODIUM PHOSPHATE - 30 MM in DEXTROSE 5%-WATER - 500 ML IVPB ONE ×2 (09:52→10:00)
[2018-07-23] MEDS ORDERED: HEPARIN NA (PORCINE) 5,000 UNITS/ML 1ML VIAL SQ SCH (10:00)
[2018-07-23] MEDS ORDERED: PT OWN MED DRAWER 7, Y5N ONE ×4 (10:51→21:34)
--- NOTE | 2018-07-23 11:39 | EKG ---
Test Reason : Blood Pressure : / mmHG Vent. Rate : 120 BPM Atrial Rate : 120 BPM P-R Int : 126 ms QRS Dur : 068 ms QT Int : 324 ms P-R-T Axes : 054 011 026 degrees QTc Int : 457 ms SINUS TACHYCARDIA OTHERWISE NORMAL ECG WHEN COMPARED WITH ECG OF 24-SEP-2017 18:33, VENT. RATE HAS INCREASED BY 44 BPM Confirmed by PAPI JOSHI MD ([id number]) on 07/23/2018 11:39:04 AM Referred By: Confirmed By:PAPI JOSHI MD
[2018-07-23] MEDS: NADOLOL 40 MG TABLET (FP) PO SCH (12:55)
[2018-07-23] MEDS: FOLIC ACID 1 MG TABLET (FP) PO SCH (12:59)
[2018-07-23] MEDS: RIFAXIMIN 550 MG TABLET (UD) PO SCH ×2 (12:59→22:19)
[2018-07-23] MEDS: PANTOPRAZOLE SODIUM 40 MG VIAL IVPUSH SCH (12:59)
--- NOTE | 2018-07-23 13:35 | PN ---
Physical Exam: SUBJECTIVE: Patient seen and examined at bedside. Frankly encephalopathic, alternately lethargic and combative. OBJECTIVE: Vital Signs Period Temp Pulse Resp BP Sys/Choi Pulse Ox Last 24 Hr 98.0 F-99.0 F 92-125 16-20 104-117/65-82 97-100 GENERAL: Lethargic, combative when aroused, oriented to name, city but not specific location HEENT: NC/AT, sluggish pupils, MMM NECK: Trachea midline, full range of motion, supple. LUNGS: CTA b/l HEART: RRR no m/r/g ABDOMEN: midline surgical scar, pronounced distention, +fluid wave, spider angiomata, non-tender EXTREMITIES: 2+ pulses, wwp, chronic RLE wound showing granulation tissue and scant blood, no drainage NEUROLOGICAL: limited exam, +asterixis, moving 4 extremities spontaneously PSYCH: Encephalopathic, combative SKIN: Warm, dry, normal turgor, no jaundice RADHA: adamantly refused Laboratory Results - last 24 hr 07/22/18 07/22/18 07/22/18 08:30 08:30 22:30 WBC 6.2 RBC 2.40 L Hgb 7.8 L Hct 22.4 L MCV 93.5 MCH 32.4 D MCHC 34.6 RDW 21.2 H Plt Count 107 L D MPV 6.7 L Absolute Neuts (auto) 4.7 Neutrophils % 76.9 D Lymphocytes % 7.6 L D Monocytes % 14.4 H Eosinophils % 0.3 D Basophils % 0.8 Nucleated RBC % 0 Platelet Estimate Decreased Platelet Comment No clumping noted Anisocytosis 1+ PT with INR INR PTT (Actin FS) VBG pH POC VBG pCO2 POC VBG pO2 VBG HCO3 VBG O2 Sat (Michael) VBG Base Excess Sodium Potassium Chloride Carbon Dioxide Anion Gap BUN Creatinine Est GFR (CKD-EPI)AfAm Est GFR (CKD-EPI)NonAf Random Glucose Lactic Acid Calcium Phosphorus Magnesium Total Bilirubin AST ALT Alkaline Phosphatase Ammonia LD Total Troponin I Total Protein Albumin Lipase Urine Color Dk yellow Urine Appearance Clear Urine pH 6.0 Ur Specific Robertson 1.036 H Urine Protein Negative Urine Glucose (UA) Negative Urine Ketones Trace H Urine Blood Negative Urine Nitrite Negative Urine Bilirubin Negative Urine Urobilinogen 0.2 Ur Leukocyte Esterase Negative Opiates Screen Positive A* Methadone Screen Negative Barbiturate Screen Negative Phencyclidine Screen Negative Ur Amphetamines Screen Negative MDMA (Ecstasy) Screen Negative Benzodiazepines Screen Negative Cocaine Screen Negative U Marijuana (THC) Screen Negative Alcohol, Quantitative Blood Type Antibody Screen 07/22/18 07/22/18 07/22/18 22:30 22:30 22:30 WBC RBC Hgb Hct MCV MCH MCHC RDW Plt Count MPV Absolute Neuts (auto) Neutrophils % Lymphocytes % Monocytes % Eosinophils % Basophils % Nucleated RBC % Platelet Estimate Platelet Comment Anisocytosis PT with INR 19.70 H INR 1.66 H PTT (Actin FS) 36.9 H VBG pH 7.37 POC VBG pCO2 36.2 L POC VBG pO2 37.3 VBG HCO3 20.6 L VBG O2 Sat (Michael) 60.5 L VBG Base Excess -3.6 L Sodium 136 Potassium 5.1 Chloride 108 H Carbon Dioxide 22 Anion Gap 6 L BUN 24.4 H Creatinine 0.7 Est GFR (CKD-EPI)AfAm 130.25 Est GFR (CKD-EPI)NonAf 112.38 Random Glucose 89 Lactic Acid Calcium 7.7 L Phosphorus Magnesium Total Bilirubin 2.9 H AST 110 H ALT 43 Alkaline Phosphatase 170 H Ammonia LD Total Troponin I Total Protein 5.5 L Albumin 2.0 L Lipase Urine Color Urine Appearance Urine pH Ur Specific Robertson Urine Protein Urine Glucose (UA) Urine Ketones Urine Blood Urine Nitrite Urine Bilirubin Urine Urobilinogen Ur Leukocyte Esterase Opiates Screen Methadone Screen Barbiturate Screen Phencyclidine Screen Ur Amphetamines Screen MDMA (Ecstasy) Screen Benzodiazepines Screen Cocaine Screen U Marijuana (THC) Screen Alcohol, Quantitative Blood Type Antibody Screen 07/22/18 07/22/18 07/22/18 22:30 22:30 23:45 WBC RBC Hgb Hct MCV MCH MCHC RDW Plt Count MPV Absolute Neuts (auto) Neutrophils % Lymphocytes % Monocytes % Eosinophils % Basophils % Nucleated RBC % Platelet Estimate Platelet Comment Anisocytosis PT with INR INR PTT (Actin FS) VBG pH POC VBG pCO2 POC VBG pO2 VBG HCO3 VBG O2 Sat (Michael) VBG Base Excess Sodium Potassium Chloride Carbon Dioxide Anion Gap BUN Creatinine Est GFR (CKD-EPI)AfAm Est GFR (CKD-EPI)NonAf Random Glucose Lactic Acid 4.0 H* Calcium Phosphorus Magnesium Total Bilirubin AST ALT Alkaline Phosphatase Ammonia LD Total Troponin I 0.03 Total Protein Albumin Lipase 153 Urine Color Urine Appearance Urine pH Ur Specific Robertson Urine Protein Urine Glucose (UA) Urine Ketones Urine Blood Urine Nitrite Urine Bilirubin Urine Urobilinogen Ur Leukocyte Esterase Opiates Screen Methadone Screen Barbiturate Screen Phencyclidine Screen Ur Amphetamines Screen MDMA (Ecstasy) Screen Benzodiazepines Screen Cocaine Screen U Marijuana (THC) Screen Alcohol, Quantitative Blood Type Antibody Screen 07/22/18 07/23/18 07/23/18 23:45 01:46 02:29 WBC RBC Hgb Hct MCV MCH MCHC RDW Plt Count MPV Absolute Neuts (auto) Neutrophils % Lymphocytes % Monocytes % Eosinophils % Basophils % Nucleated RBC % Platelet Estimate Platelet Comment Anisocytosis PT with INR INR PTT (Actin FS) VBG pH POC VBG pCO2 POC VBG pO2 VBG HCO3 VBG O2 Sat (Michael) VBG Base Excess Sodium Potassium Chloride Carbon Dioxide Anion Gap BUN Creatinine Est GFR (CKD-EPI)AfAm Est GFR (CKD-EPI)NonAf Random Glucose Lactic Acid 2.8 H* Calcium Phosphorus Magnesium Total Bilirubin AST ALT Alkaline Phosphatase Ammonia 194.20 H LD Total 345 H Troponin I Total Protein Albumin Lipase Urine Color Urine Appearance Urine pH Ur Specific Robertson Urine Protein Urine Glucose (UA) Urine Ketones Urine Blood Urine Nitrite Urine Bilirubin Urine Urobilinogen Ur Leukocyte Esterase Opiates Screen Methadone Screen Barbiturate Screen Phencyclidine Screen Ur Amphetamines Screen MDMA (Ecstasy) Screen Benzodiazepines Screen Cocaine Screen U Marijuana (THC) Screen Alcohol, Quantitative 7.6 H Blood Type Antibody Screen 07/23/18 07/23/18 07/23/18 02:29 06:30 06:30 WBC 6.1 RBC 2.40 L Hgb 7.8 L Hct 22.3 L MCV 93.1 MCH 32.6 MCHC 35.0 RDW 21.9 H Plt Count 94 L MPV 7.0 L Absolute Neuts (auto) 4.1 Neutrophils % 67.2 Lymphocytes % 12.1 D Monocytes % 19.2 H Eosinophils % 0.4 Basophils % 1.1 Nucleated RBC % 0 Platelet Estimate Platelet Comment Anisocytosis PT with INR INR PTT (Actin FS) VBG pH POC VBG pCO2 POC VBG pO2 VBG HCO3 VBG O2 Sat (Michael) VBG Base Excess Sodium 138 Potassium 5.1 Chloride 109 H Carbon Dioxide 24 Anion Gap 5 L BUN 30.0 H Creatinine 0.7 Est GFR (CKD-EPI)AfAm 130.25 Est GFR (CKD-EPI)NonAf 112.38 Random Glucose 108 H Lactic Acid Calcium 7.3 L Phosphorus 2.0 L Magnesium 2.3 Total Bilirubin AST ALT Alkaline Phosphatase Ammonia LD Total Troponin I Total Protein Albumin Lipase Urine Color Urine Appearance Urine pH Ur Specific Robertson Urine Protein Urine Glucose (UA) Urine Ketones Urine Blood Urine Nitrite Urine Bilirubin Urine Urobilinogen Ur Leukocyte Esterase Opiates Screen Methadone Screen Barbiturate Screen Phencyclidine Screen Ur Amphetamines Screen MDMA (Ecstasy) Screen Benzodiazepines Screen Cocaine Screen U Marijuana (THC) Screen Alcohol, Quantitative Blood Type B NEGATIVE Antibody Screen Negative Active Medications Generic Name Dose Route Start Last Admin Trade Name Freq PRN Reason Stop Dose Admin Folic Acid 1 mg 07/23/18 10:00 07/23/18 12:59 Folic Acid - PO 1 mg DAILY KENDRICK Administration Octreotide Acetate 200 mcg/ 500 mls @ 20.833 mls/hr 07/23/18 04:00 07/23/18 05:52 Octreotide Acetate 1,000 mcg/ IVPB 20.833 mls/hr Dextrose ASDIR KENDRICK Administration Sodium Phosphate 30 mm/ 510 mls @ 62.5 mls/hr 07/23/18 10:00 Dextrose IVPB 07/23/18 18:09 ONCE ONE Lactulose 30 gm 07/23/18 01:37 07/23/18 06:55 Cephulac (Oral Use) PO 30 gm Q6HPO KENDRICK Administration Nadolol 40 mg 07/23/18 10:00 07/23/18 12:55 Corgard - PO Not Given DAILY KENDRICK Pantoprazole Sodium 40 mg 07/23/18 10:00 07/23/18 12:59 Protonix Iv IVPUSH 40 mg DAILY KENDRICK Administration Rifaximin 550 mg 07/23/18 10:00 07/23/18 12:59 Xifaxan - PO 550 mg BID KENDRICK Administration Tamsulosin HCl 0.4 mg 07/23/18 22:00 Flomax - PO HS KENDRICK ASSESSMENT/PLAN: 48 y/o M w/ PMHx HTN, Hep C, cirrhosis, polysubstance abuse, ascites, chronic RLE wound, reports esophageal banding at [facility] within past year (will confirm records), p/w AMS, abdominal pain, coffee ground emesis #hepatic encephalopathy -GI consulted -cont lactulose, rifaximin -per GI, infectious workup including paracentesis (ordered under IR guidance) #cirrhosis -cont Nadolol, folate -likely will need diuretics #anemia -reports coffee ground emesis -FOBT ordered -rectal exam refused -may require EGD -octreotide gtt, IV PTX #RLE wound -received vanc/zosyn in ED -ID consulted #FEN -no IVF -monitor and replete -NPO pending GI clearance #PPx -no pharmacologic AC w/ possible bleed -PTX #code -full #dispo -monitor on med/surg Visit type - Emergency Visit Emergency Visit: No - New Patient This patient is new to me today: Yes Date on this admission: 07/23/18 - Critical Care Critical Care patient: No
--- NOTE | 2018-07-23 13:42 | CON.GI ---
Consult Consult Specialty:: GI Referred by:: Medicine Reason for Consultation:: "UGIB" - History of Present Illness Chief Complaint: abdominal pain/increasing girth History of Present Illness: 48M decompensated HCV/alcoholic cirrhosis, decompensated with ascites, EBV 2017 s/p band ligation, PSE, substance abuse, presenting for the evaluation of abdominal pain and increasing girth x2 weeks. Patient refused to cooperate with much of interview, but per patient: has never had pain like this before. Denies fever/chills. Requesting abdominal paracentesis. Unclear if he knows or is taking diuretics or nadolol. Reports an episode of brown emesis x1 in ED yesterday. Last BM was yesterday and was normal. hgb on d/c from [facility] 2018 was 8.1 so stable compared to now. Per [facility] chart review - several admissions, 09/2017, 12/2017, 03/2018. Had hematemesis w hgb 4 in 09/2017, had EGD with grade 1 esophageal varices with white nipple sign on varix at 30cm, 2 bands placed on this site. Deemed not a TIPS candidate due to high MELD and bili and hx of PSE. Did not follow up for surveillance EGD, and on admit 03/2018, signed out AMA prior to EGD being done. 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: Other (encephalopathy) Gastrointestinal: Yes: Ascites, Esophageal Varices, Other (Hepatitis, umbilical hernia) Hepatobiliary: Yes: Cirrhosis, Hepatitis C Psych: Yes: Addictions (alchohol Current, Heroin revcovery) Rheumatology: No: Fibromyalgia Endocrine: Yes: Other (hyponatremia) Dermatology: Yes: Other (rt lower extremity cellulitis) - Past Surgical History Past Surgical History: Yes: Colectomy, Hernia Repair - Alcohol/Substance Use Hx Alcohol Use: Yes Number of Drinks Daily: 3 History of Substance Use: reports: Heroin Date of Last Use: 11/14/16 (see tox report) - Smoking History Smoking history: Unknown if ever smoked Have you smoked in the past 12 months: No Aproximately how many cigarettes per day: 3 If you are a former smoker, when did you quit?: 10yrs - Social History Usual Living Arrangement: Alone History of Recent Travel: No Home Medications - Allergies Allergies/Adverse Reactions: Allergies Allergy/AdvReac Type Severity Reaction Status Date / Time morphine Allergy Verified 07/22/18 21:33 - Home Medications Home Medications: Ambulatory Orders Albuterol Sulfate Inhaler - [Ventolin HFA Inhaler -] 2 puff IH Q4H PRN #1 inhaler 02/15/17 Pantoprazole Sodium [Protonix] 40 mg PO DAILY #30 tablet. 02/15/17 Spironolactone [Aldactone -] 75 mg PO BID #60 tablet 02/15/17 Thiamine HCl [Vitamin B1 -] 100 mg PO HS tablet 09/27/17 Nadolol 80 mg PO DAILY 07/23/18 Quetiapine Fumarate [Seroquel -] 25 mg PO BID 07/23/18 Family Disease History - Family Disease History Family Disease History: Other: Father (Killed age 29), Mother (alive), Son (2, healthy), Daughter (1, healthy) Review of Systems - Review of Systems Constitutional: reports: No Symptoms Eyes: reports: No Symptoms HENT: reports: No Symptoms Neck: reports: No Symptoms Cardiovascular: reports: No Symptoms Respiratory: reports: No Symptoms Gastrointestinal: reports: Abdominal Pain, Bloating Genitourinary: reports: No Symptoms Musculoskeletal: reports: No Symptoms Integumentary: reports: No Symptoms Neurological: reports: No Symptoms Endocrine: reports: No Symptoms Physical Exam-GI Vital Signs: Vital Signs Temperature 98.0 F 07/23/18 11:34 Pulse Rate 100 H 07/23/18 11:34 Respiratory Rate 18 07/23/18 11:34 Blood Pressure 104/71 07/23/18 11:34 O2 Sat by Pulse Oximetry (%) 98 07/23/18 11:34 Constitutional: Yes: Well Nourished, No Distress, Calm Eyes: Yes: Conjunctiva Clear, EOM Intact HENT: Yes: WNL Neck: Yes: WNL Cardiovascular: Yes: Regular Rate and Rhythm Respiratory: Yes: CTA Bilaterally Gastrointestinal Inspection: Yes: Ascites ...Percussion: Yes: Fluid Wave (Distended but nontender, +caput; healed surgical scar) ...Rectal Exam: Yes: Deferred Edema: Yes Edema: LLE: 3+, RLE: 3+ Neurological: Yes: Alert, Oriented (x2; said year 1918), Asterixis Labs: CBC, BMP 07/23/18 06:30 07/23/18 06:30 INR, PTT INR 1.66 (0.83-1.09) H 07/22/18 22:30 Hepatic Panel Total Bilirubin 2.9 mg/dL (0.2-1) H 07/22/18 22:30 AST 110 U/L (15-37) H 07/22/18 22:30 ALT 43 U/L (13-61) 07/22/18 22:30 Alkaline Phosphatase 170 U/L (45-117) H 07/22/18 22:30 Albumin 2.0 g/dl (3.4-5.0) L 07/22/18 22:30 Assessment/Plan Decompensated HCV/ETOH cirrhosis; still active drinking. With worsening PSE. Regarding PSE: - must rule out infection: diagnostic and therapeutic tap with albumin replacement for cell count and cx, blood cx x2, UA/Ucx, CXR - continue lactulose and rifaximin Ascites: - hold diuretics for now, can resume after infection ruled out and paracentesis performed - low salt diet h/o EVB, no evidence of bleeding currently - can d/c octreotide drip - trend hgb - Will need EGD for surveillance/banding to eradication prior to d/c
--- NOTE | 2018-07-23 14:50 | CON.ID ---
Consult Consult Specialty:: infectious diseases Referred by:: hospitalist Reason for Consultation:: sepsis,abd pain - History of Present Illness Chief Complaint: abd pain History of Present Illness: this patient with multiple admissions who is a very poor historian 8 year old male with a PMH of HTN, Hep C, Liver Cirrhosis, ETOH abuse, Opioid abuse, SBOs, Acities, Chronic right lower extremity wound who presents for evaluation of abdominal pain. History is limited as the patient is a poor historian on exam. He reports a 2 week history of poorly described diffuse abdominal pain and increasing abdominal distension prompting his presentation to the ED for further evaluation. He reports generalized fatigue and weakness as well as nausea and vomiting. He reports subjective fevers and otherwise denies chills, SOB, chest pain, or changes with urination or bowel movements. 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) Gastrointestinal: Yes: Ascites, Esophageal Varices, Other (Hepatitis, umbilical hernia) Hepatobiliary: Yes: Cirrhosis, Hepatitis C Psych: Yes: Addictions (alchohol Current, Heroin revcovery) Rheumatology: No: Fibromyalgia Endocrine: Yes: Other (hyponatremia) Dermatology: Yes: Other (rt lower extremity cellulitis) - Past Surgical History Past Surgical History: Yes: Colectomy, Hernia Repair - Alcohol/Substance Use Hx Alcohol Use: Yes Number of Drinks Daily: 3 History of Substance Use: reports: Heroin Date of Last Use: 11/14/16 (see tox report) - Smoking History Smoking history: Unknown if ever smoked Have you smoked in the past 12 months: No Aproximately how many cigarettes per day: 3 If you are a former smoker, when did you quit?: 10yrs - Social History Usual Living Arrangement: Alone History of Recent Travel: No Home Medications - Allergies Allergies/Adverse Reactions: Allergies Allergy/AdvReac Type Severity Reaction Status Date / Time morphine Allergy Verified 07/22/18 21:33 - Home Medications Home Medications: Ambulatory Orders Albuterol Sulfate Inhaler - [Ventolin HFA Inhaler -] 2 puff IH Q4H PRN #1 inhaler 02/15/17 Pantoprazole Sodium [Protonix] 40 mg PO DAILY #30 tablet. 02/15/17 Spironolactone [Aldactone -] 75 mg PO BID #60 tablet 02/15/17 Thiamine HCl [Vitamin B1 -] 100 mg PO HS tablet 09/27/17 Nadolol 80 mg PO DAILY 07/23/18 Quetiapine Fumarate [Seroquel -] 25 mg PO BID 07/23/18 Family Disease History - Family Disease History Family Disease History: Other: Father (Killed age 29), Mother (alive), Son (2, healthy), Daughter (1, healthy) Review of Systems - Review of Systems Constitutional: reports: No Symptoms Eyes: reports: No Symptoms HENT: reports: No Symptoms Neck: reports: No Symptoms Cardiovascular: reports: No Symptoms Respiratory: reports: No Symptoms Gastrointestinal: reports: Abdominal Pain Genitourinary: reports: No Symptoms Musculoskeletal: reports: No Symptoms Integumentary: reports: No Symptoms Neurological: reports: No Symptoms Endocrine: reports: No Symptoms Hematology/Lymphatic: reports: No Symptoms Psychiatric: reports: No Symptoms Physical Exam Vital Signs: Vital Signs Temperature 98.0 F 07/23/18 11:34 Pulse Rate 100 H 07/23/18 11:34 Respiratory Rate 18 07/23/18 11:34 Blood Pressure 104/71 07/23/18 11:34 O2 Sat by Pulse Oximetry (%) 98 07/23/18 11:34 Constitutional: Yes: No Distress, Calm HENT: Yes: Atraumatic Cardiovascular: Yes: Regular Rate and Rhythm Respiratory: Yes: Regular, CTA Bilaterally Gastrointestinal: Yes: Normal Bowel Sounds, Soft, Ascites Musculoskeletal: Yes: WNL Extremities: Yes: Other Wound/Incision: Yes: Other (wound looks infected) Neurological: Yes: Alert Psychiatric: Yes: Alert Labs: CBC, BMP 07/23/18 06:30 07/23/18 06:30 Imaging - Results Chest X-ray: Report Reviewed, Image Reviewed Assessment/Plan Pt. is a 48 y.o. M w/ PMHx. of HTN, Hep C , Cirrhosis, Polysubstance abuse ( Cocaine, EtOH, Heroin- IV and inhalation), ascites, chronic RLE wound presenting for altered mental status. Acute Hepatic Encephalopathy Liver Cirrhosis w/ ascites, esophageal varices, lower extremity edema and scrotal swelling Hemolytic? Anemia vs. Anemia of chronic Disease wound infection plan patient needs tap to r/o sbp continue abx await for wound cx rest as per the team
--- NOTE | 2018-07-23 15:30 | PN ---
Teaching Attending Note Name of Resident: Denny Nicolas ATTENDING PHYSICIAN STATEMENT I saw and evaluated the patient. I reviewed the resident's note and discussed the case with the resident. I agree with the resident's findings and plan as documented. SUBJECTIVE: Patient is lying in bed agitated,asking for pain medication. OBJECTIVE: Vital Signs Temperature 98.0 F 07/23/18 11:34 Pulse Rate 100 H 07/23/18 11:34 Respiratory Rate 18 07/23/18 11:34 Blood Pressure 104/71 07/23/18 11:34 O2 Sat by Pulse Oximetry (%) 98 07/23/18 11:34 GENERAL: lying in bed with no aute distress. HEENT: NC/AT, MMM, EOMI NECK: Trachea midline, full range of motion, supple. LUNGS: CTA b/l, HEART: RRR no m/r/g ABDOMEN: midline surgical scar, positive for distention, spider angiomata, non- tender EXTREMITIES: 2+ pulses, wrapped LE due to chronic changes , no drainage, no discharge NEUROLOGICAL: CN 2-12 grossly intact, positive for asterixis. PSYCH: Encephalopathic, combative SKIN: Warm, dry, normal turgor, no jaundice rectal exam: refused CBCD WBC 6.1 K/mm3 (4.0-10.0) 07/23/18 06:30 RBC 2.40 M/mm3 (4.00-5.60) L 07/23/18 06:30 Hgb 7.8 GM/dL (11.7-16.9) L 07/23/18 06:30 Hct 22.3 % (35.4-49) L 07/23/18 06:30 MCV 93.1 fl (80-96) 07/23/18 06:30 MCHC 35.0 g/dl (32.0-35.9) 07/23/18 06:30 RDW 21.9 % (11.9-15.9) H 07/23/18 06:30 Plt Count 94 K/MM3 (134-434) L 07/23/18 06:30 MPV 7.0 fl (7.5-11.1) L 07/23/18 06:30 CMP Sodium 138 mmol/L (136-145) 07/23/18 06:30 Potassium 5.1 mmol/L (3.5-5.1) 07/23/18 06:30 Chloride 109 mmol/L (98-107) H 07/23/18 06:30 Carbon Dioxide 24 mmol/L (21-32) 07/23/18 06:30 Anion Gap 5 MMOL/L (8-16) L 07/23/18 06:30 BUN 30.0 mg/dL (7-18) H 07/23/18 06:30 Creatinine 0.7 mg/dL (0.55-1.3) 07/23/18 06:30 Random Glucose 108 mg/dL (74-106) H 07/23/18 06:30 Calcium 7.3 mg/dL (8.5-10.1) L 07/23/18 06:30 Total Bilirubin 2.9 mg/dL (0.2-1) H 07/22/18 22:30 AST 110 U/L (15-37) H 07/22/18 22:30 ALT 43 U/L (13-61) 07/22/18 22:30 Alkaline Phosphatase 170 U/L (45-117) H 07/22/18 22:30 Total Protein 5.5 g/dl (6.4-8.2) L 07/22/18 22:30 Albumin 2.0 g/dl (3.4-5.0) L 07/22/18 22:30 CARDIAC ENZYMES Troponin I 0.03 ng/ml (0.00-0.05) 07/22/18 22:30 Current Medications Generic Name Dose Route Start Last Admin Trade Name Freq PRN Reason Stop Dose Admin Folic Acid 1 mg 07/23/18 10:00 07/23/18 12:59 Folic Acid - PO 1 mg DAILY KENDRICK Administration Octreotide Acetate 200 mcg/ 500 mls @ 20.833 mls/hr 07/23/18 04:00 07/23/18 05:52 Octreotide Acetate 1,000 mcg/ IVPB 20.833 mls/hr Dextrose ASDIR KENDRICK Administration Sodium Phosphate 30 mm/ 510 mls @ 62.5 mls/hr 07/23/18 10:00 Dextrose IVPB 07/23/18 18:09 ONCE ONE Lactulose 30 gm 07/23/18 01:37 07/23/18 15:27 Cephulac (Oral Use) PO Not Given Q6HPO KENDRICK Nadolol 40 mg 07/23/18 10:00 07/23/18 12:55 Corgard - PO Not Given DAILY KENDRICK Pantoprazole Sodium 40 mg 07/23/18 10:00 07/23/18 12:59 Protonix Iv IVPUSH 40 mg DAILY KENDRICK Administration Rifaximin 550 mg 07/23/18 10:00 07/23/18 12:59 Xifaxan - PO 550 mg BID KENDRICK Administration Tamsulosin HCl 0.4 mg 07/23/18 22:00 Flomax - PO HS [facility] Home Medications Medication Instructions Recorded Albuterol Sulfate Inhaler - 2 puff IH Q4H PRN #1 inhaler 02/15/17 [Ventolin HFA Inhaler -] Pantoprazole Sodium [Protonix] 40 mg PO DAILY #30 tablet. 02/15/17 Spironolactone [Aldactone -] 75 mg PO BID #60 tablet 02/15/17 Thiamine HCl [Vitamin B1 -] 100 mg PO HS tablet 09/27/17 Nadolol 80 mg PO DAILY 07/23/18 Quetiapine Fumarate [Seroquel -] 25 mg PO BID 07/23/18 Laboratory Tests 07/22/18 07/23/18 23:45 02:29 Ammonia 194.20 H LD Total 345 H Microbiology 07/22/18 21:50 Cellulitis Gram Stain - Final ASSESSMENT AND PLAN: Patient is a 48yo male with PMHx of HTN, Hep C, cirrhosis, polysubstance abuse , ascites, chronic RLE wound, reports esophageal banding at [facility] within past year presented with AMS due to hepatic encephalopathy , abdominal pain, coffee ground emesis # Acute change of mental status due to hepatic encephalopathy with ammonia level of 345-->194 today , on lactulose and rifaximin, GI consult ordered IR guided paracentesis for diagnostic and therapeutic tap with albumin replacement for cell count and cx, blood cx x2, UA/Ucx, CXR need to r/o SBP, no evidence of bleeding currently can d/c octreotide drip # Liver cirrhosis with ascites cont Nadolol, folate, hold diuretics for now. low salt diet, #anemia reports coffee ground emesis on octreotide gtt, IV PTX #RLE wound s/p vanc/zosyn in ED, chronic changes DVT px: cannot Ac since patient reports coffee ground emesis
[2018-07-23] MEDS ORDERED: oxyCODONE HCL 5 MG TABLET PO ONE (18:36)
[2018-07-23] MEDS: TAMSULOSIN HCL 0.4 MG CAP PO SCH (22:19)
[2018-07-24] MEDS: LACTULOSE 20 GM/30 ML UDC (FOR ORAL USE ONLY) PO SCH ×4 (00:48→17:37)
[2018-07-24] MEDS: OCTREOTIDE ACETATE 200 MCG, OCTREOTIDE ACETATE 1,000 MCG in DEXTROSE 5%-WATER - 496 ML IVPB SCH (05:21)
[2018-07-24] MEDS ORDERED: oxyCODONE HCL 5 MG TABLET PO ONE ×2 (07:52→18:33)
[2018-07-24 08:18] LABS: INR 1.47 (0.83-1.09); PROTHROMBIN TIME (PATIENT) 17.4 SEC (9.7-13.0)
[2018-07-24 08:23] LABS: BLOOD UREA NITROGEN 25.7 mg/dL (7-18); CALCIUM 7.7 mg/dL (8.5-10.1); CREATININE 0.9 mg/dL (0.55-1.3); MAGNESIUM 2.2 mg/dL (1.8-2.4); PHOSPHOROUS 2.5 mg/dL (2.5-4.9); POTASSIUM 4.2 mmol/L (3.5-5.1)
[2018-07-24] MEDS ORDERED: LORazepam 1 MG TABLET PO PRN (08:39)
--- NOTE | 2018-07-24 08:39 | PN ---
[facility] Progress Note (SOAP) Subjective: pt referred for consultation for etoh abuse , reports " not that much " claims 2-3 beers/ day , denies w/d seizures / tremors/ blackouts if not drinking . pt c/o feeling hungry , NPO P paracentesis PMHX : liver cirrhosis , HTN, alcohol abuse, ascites, esophageal varices, and Hepatitis C , paracentesis Active Medications Folic Acid (Folic Acid -) 1 mg PO DAILY [facility] Last Admin: 07/23/18 12:59 Dose: 1 mg Octreotide Acetate 200 mcg/Octreotide Acetate 1,000 mcg/Dextrose 500 mls @ 20.833 mls/hr IVPB ASDIR [facility] Last Admin: 07/24/18 05:21 Dose: Not Given Lactulose (Cephulac (Oral Use)) 30 gm PO Q6HPO [facility] Last Admin: 07/24/18 05:22 Dose: Not Given Nadolol (Corgard -) 40 mg PO DAILY [facility] Last Admin: 07/23/18 12:55 Dose: Not Given Pantoprazole Sodium (Protonix Iv) 40 mg IVPUSH DAILY [facility] Last Admin: 07/23/18 12:59 Dose: 40 mg Rifaximin (Xifaxan -) 550 mg PO BID [facility] Last Admin: 07/23/18 22:19 Dose: 550 mg Tamsulosin HCl (Flomax -) 0.4 mg PO HS [facility] Last Admin: 07/23/18 22:19 Dose: 0.4 mg Objective: pt combative , difficult to re- direct 07/24/18 08:38 CBC, BMP 07/24/18 07:30 Abnormal Lab Results 07/22/18 07/22/18 07/23/18 08:30 08:30 06:30 Plt Count 94 L PT with INR INR Chloride Anion Gap BUN Calcium Ur Specific [place] 1.036 H Urine Ketones Trace H Opiates Screen Positive A* 07/24/18 07/24/18 07:30 07:30 Plt Count PT with INR 17.40 H INR 1.47 H Chloride 111 H Anion Gap 5 L BUN 25.7 H Calcium 7.7 L Ur Specific [place] Urine Ketones Opiates Screen Vital Signs - 24 hr 07/23/18 07/23/18 07/23/18 11:34 18:00 22:00 Temperature 98.0 F 98.1 F 97.8 F Pulse Rate 100 H 96 H 86 Respiratory 18 18 18 Rate Blood Pressure 104/71 101/72 87/65 L O2 Sat by Pulse 98 98 Oximetry (%) 07/24/18 07/24/18 02:00 05:51 Temperature 98.2 F 97.7 F Pulse Rate 76 78 Respiratory 20 20 Rate Blood Pressure 102/70 106/60 O2 Sat by Pulse Oximetry (%) 07/24/18 20:00 Assessment: 07/24/18 08:39 alcohol dependence / abuse by history Plan: prn Ativan
[2018-07-24 08:43] LABS: BASO % 1.4 % (0-2.0); EOS % 0.5 % (0-4.5); HEMATOCRIT 20.3 % (35.4-49); LYMPH % 16.9 % (8-40); MCHC 34.1 g/dl (32.0-35.9); MEAN CELL VOLUME 96.6 fl (80-96); MONO % 12.7 % (3.8-10.2); NEUT % 68.5 % (42.8-82.8); PLATELET COUNT 73 K/MM3 (134-434)
[2018-07-24] MEDS ORDERED: PT OWN MED DRAWER 7, Y5N ONE ×2 (09:43→19:32)
[2018-07-24] MEDS: FOLIC ACID 1 MG TABLET (FP) PO SCH (09:50)
[2018-07-24] MEDS: RIFAXIMIN 550 MG TABLET (UD) PO SCH ×2 (09:50→21:44)
[2018-07-24 09:55] LABS: HEMOGLOBIN 6.9 GM/dL (11.7-16.9)
--- NOTE | 2018-07-24 10:52 | ECHO ---
Version: 1 Name: JAMESON CARTER Exam: Adult Echocardiogram Study Date: 07/24/2018, 7:37 AM Age: 48 Years MMode/2D Measurements & Calculations IVSd: 1.02 cm LVIDs: 2.6 cm LVIDd: 4.2 cm LVPWd: 0.78 cm LAV (MOD-bp): 64.2 ml LVOT diam: 2.00 cm Ao root diam: 2.6 cm LA dimension: 2.9 cm Doppler Measurements & Calculations MV E max farhat: 108.0 cm/sec Med E/e': 14.2 MV A max farhat: 120.3 cm/sec Med Peak E' Farhat: 7.6 cm/sec MV E/A: 0.90 Lat E/e': 8.3 Lat Peak E' [place]hat: 13.1 cm/sec MR max P.3 mmHg Ao max P.2 mmHg Ao V2 max: 175.0 cm/sec TR max farhat: 257.6 cm/sec TR max P.7 mmHg Procedure A complete two-dimensional transthoracic echocardiogram was performed (2D, M-mode, Doppler and color flow Doppler). The patient was in normal sinus rhythm during the exam. Left Ventricle The left ventricular size, thickness and function are normal. Ejection Fraction = 65%. E/A reversal consistent with but not diagnostic of poor LV compliance. The left ventricular wall motion is normal . Right Ventricle The right ventricle is normal in size and function. Atria Normal left and right atrial size and function. Mitral Valve The mitral valve is normal in structure and function. There is trace to mild mitral regurgitation. Tricuspid Valve Right ventricular systolic pressure is 26 mmhg. There is Trace to mild tricuspid regurgitation. Aortic Valve There is mild to moderate aortic sclerosis.;. Pulmonic Valve The pulmonic valve is not well visualized. Great Vessels The aortic root is normal size. Pericardium/Pleura There is no pericardial effusion. There is no pleural effusion. Summary Statements The left ventricular size, thickness and function are normal Ejection Fraction = 65%. The right ventricle is normal in size and function. There is trace to mild mitral regurgitation. There is Trace to mild tricuspid regurgitation. Right ventricular systolic pressure is 26 mmhg. There is mild to moderate aortic sclerosis.; MD Neno Mcfarland 07/24/2018, 9:52 AM Ordering Physician: JOHN EVANS Performed By: Karin Rios
--- NOTE | 2018-07-24 11:02 | PN ---
Physical Exam: SUBJECTIVE: Patient seen and examined at bedside. Improved coherence, continues refusing lactulose. C/o diffuse pain. OBJECTIVE: Vital Signs Period Temp Pulse Resp BP Sys/Choi Pulse Ox Last 24 Hr 97.7 F-98.2 F 76-100 18-20 87-106/60-72 98-98 GENERAL: Alert, oriented to self/place/time however overall confused HEENT: NC/AT, sluggish pupils, MMM NECK: Trachea midline, full range of motion, supple. LUNGS: CTA b/l HEART: RRR no m/r/g ABDOMEN: midline surgical scar, pronounced distention, +fluid wave, spider angiomata, non-tender EXTREMITIES: 2+ pulses, wwp, chronic RLE wound showing granulation tissue and scant blood, no drainage NEUROLOGICAL: limited exam, +asterixis, moving 4 extremities spontaneously PSYCH: improved coherence and attention SKIN: Warm, dry, normal turgor, no jaundice RADHA: adamantly refused Laboratory Results - last 24 hr 07/23/18 07/23/18 07/24/18 02:29 06:30 07:30 WBC 3.0 L RBC 2.10 L Hgb 6.9 L* Hct 20.3 L MCV 96.6 H MCH 33.0 MCHC 34.1 RDW 22.0 H Plt Count 94 L 73 L D MPV 7.0 L Absolute Neuts (auto) 2.1 Neutrophils % 68.5 Lymphocytes % 16.9 D Monocytes % 12.7 H Eosinophils % 0.5 Basophils % 1.4 Nucleated RBC % 0 PT with INR INR Sodium Potassium Chloride Carbon Dioxide Anion Gap BUN Creatinine Est GFR (CKD-EPI)AfAm Est GFR (CKD-EPI)NonAf Random Glucose Calcium Phosphorus Magnesium Crossmatch See Detail 07/24/18 07/24/18 07:30 07:30 WBC RBC Hgb Hct MCV MCH MCHC RDW Plt Count MPV Absolute Neuts (auto) Neutrophils % Lymphocytes % Monocytes % Eosinophils % Basophils % Nucleated RBC % PT with INR 17.40 H INR 1.47 H Sodium 139 Potassium 4.2 Chloride 111 H Carbon Dioxide 23 Anion Gap 5 L BUN 25.7 H Creatinine 0.9 Est GFR (CKD-EPI)AfAm 117.47 Est GFR (CKD-EPI)NonAf 101.35 Random Glucose 76 Calcium 7.7 L Phosphorus 2.5 Magnesium 2.2 Crossmatch Active Medications Generic Name Dose Route Start Last Admin Trade Name Rafael PRN Reason Stop Dose Admin Folic Acid 1 mg 07/23/18 10:00 07/24/18 09:50 Folic Acid - PO 1 mg DAILY [facility] Administration Octreotide Acetate 200 mcg/ 500 mls @ 20.833 mls/hr 07/23/18 04:00 07/24/18 05:21 Octreotide Acetate 1,000 mcg/ IVPB Not Given Dextrose ASDIR [facility] Lactulose 30 gm 07/23/18 01:37 07/24/18 05:22 Cephulac (Oral Use) PO Not Given Q6HPO [facility] Lorazepam 0.5 mg 07/26/18 11:00 Ativan - PO 07/27/18 10:59 Q4H PRN Symptoms of Withdrawal Lorazepam 1 mg 07/24/18 08:39 Ativan - PO 07/25/18 08:38 Q4H PRN Symptoms of Withdrawal Nadolol 40 mg 07/23/18 10:00 07/23/18 12:55 Corgard - PO Not Given DAILY [facility] Pantoprazole Sodium 40 mg 07/23/18 10:00 07/23/18 12:59 Protonix Iv IVPUSH 40 mg DAILY [facility] Administration Rifaximin 550 mg 07/23/18 10:00 07/24/18 09:50 Xifaxan - PO 550 mg BID [facility] Administration Tamsulosin HCl 0.4 mg 07/23/18 22:00 07/23/18 22:19 Flomax - PO 0.4 mg HS [facility] Administration ASSESSMENT/PLAN: 48 y/o M w/ PMHx HTN, Hep C, cirrhosis, polysubstance abuse, ascites, chronic RLE wound, reports esophageal banding at [facility] within past year (will confirm records), p/w AMS, abdominal pain, coffee ground emesis #hepatic encephalopathy -GI consulted -cont lactulose, rifaximin -per GI, infectious workup including paracentesis (ordered under IR guidance) #cirrhosis -cont Nadolol, folate -likely will need diuretics #anemia -reports coffee ground emesis -FOBT ordered -rectal exam refused -may require EGD -octreotide gtt, IV PTX -Hb dropped to 6.9, transfusing 1U PRBCs #RLE wound -received vanc/zosyn in ED -wound Cx growing Proteus/Enterococcus spp. -ID following #FEN -no IVF -monitor and replete -NPO pending paracentesis #PPx -no pharmacologic AC w/ possible bleed -PTX #code -full #dispo -monitor on med/surg Visit type - Emergency Visit Emergency Visit: No - New Patient This patient is new to me today: No - Critical Care Critical Care patient: No
[2018-07-24] MEDS: NADOLOL 40 MG TABLET (FP) PO SCH (12:32)
[2018-07-24] MEDS: PANTOPRAZOLE SODIUM 40 MG VIAL IVPUSH SCH (12:32)
[2018-07-24 12:42] LABS: ALBUMIN 2.1 g/dl (3.4-5.0); BILIRUBIN,DIRECT 1.2 mg/dL (0.0-0.2); BILIRUBIN,TOTAL 2.6 mg/dL (0.2-1); TOT PROT 5.5 g/dl (6.4-8.2)
--- NOTE | 2018-07-24 13:28 | PN ---
Progress Note, Physician History of Present Illness: stable no new issue mostly sleeping - Current Medication List Current Medications: Active Medications Folic Acid (Folic Acid -) 1 mg PO DAILY [facility] Last Admin: 07/24/18 09:50 Dose: 1 mg Octreotide Acetate 200 mcg/Octreotide Acetate 1,000 mcg/Dextrose 500 mls @ 20.833 mls/hr IVPB ASDIR [facility] Last Admin: 07/24/18 05:21 Dose: Not Given Lactulose (Cephulac (Oral Use)) 30 gm PO Q6HPO [facility] Last Admin: 07/24/18 13:15 Dose: 30 gm Lorazepam (Ativan -) 0.5 mg PO Q4H PRN PRN Reason: Symptoms of Withdrawal Stop: 07/27/18 10:59 Lorazepam (Ativan -) 1 mg PO Q4H PRN PRN Reason: Symptoms of Withdrawal Stop: 07/25/18 08:38 Nadolol (Corgard -) 40 mg PO DAILY [facility] Last Admin: 07/24/18 12:32 Dose: Not Given Pantoprazole Sodium (Protonix Iv) 40 mg IVPUSH DAILY [facility] Last Admin: 07/24/18 12:32 Dose: Not Given Rifaximin (Xifaxan -) 550 mg PO BID [facility] Last Admin: 07/24/18 09:50 Dose: 550 mg Tamsulosin HCl (Flomax -) 0.4 mg PO HS [facility] Last Admin: 07/23/18 22:19 Dose: 0.4 mg - Objective Vital Signs: Vital Signs Temperature 97.8 F 07/24/18 10:00 Pulse Rate 75 07/24/18 10:00 Respiratory Rate 19 07/24/18 10:00 Blood Pressure 103/57 L 07/24/18 10:00 O2 Sat by Pulse Oximetry (%) 97 07/24/18 09:00 Constitutional: Yes: No Distress, Calm Cardiovascular: Yes: S1, S2 Respiratory: Yes: Regular, CTA Bilaterally Gastrointestinal: Yes: Soft, Ascites Musculoskeletal: Yes: WNL Extremities: Yes: Other Wound/Incision: Yes: Dressing Dry and Intact Neurological: Yes: Alert, Oriented Psychiatric: Yes: Alert, Oriented Labs: CBC, BMP 07/24/18 07:30 07/24/18 07:30 INR, PTT INR 1.47 (0.83-1.09) H 07/24/18 07:30 Assessment/Plan Pt. is a 48 y.o. M w/ PMHx. of HTN, Hep C , Cirrhosis, Polysubstance abuse ( Cocaine, EtOH, Heroin- IV and inhalation), ascites, chronic RLE wound presenting for altered mental status. Acute Hepatic Encephalopathy Liver Cirrhosis w/ ascites, esophageal varices, lower extremity edema and scrotal swelling Hemolytic? Anemia vs. Anemia of chronic Disease wound infection plan continue abx await for identification of the bacteri and sensitivities rest as per the team wound care gi on board
--- NOTE | 2018-07-24 14:04 | PN.GI ---
GI Progress Note Subjective: S/P 6 L paracentesis States feeling well No abdominal pain - Objective Vital Signs: Vital Signs Temperature 97.8 F 07/24/18 10:00 Pulse Rate 75 07/24/18 10:00 Respiratory Rate 07/24/18 10:00 Blood Pressure 103/57 L 07/24/18 10:00 O2 Sat by Pulse Oximetry (%) 97 07/24/18 09:00 Constitutional: Calm Eyes: Yes: Sclera Icterus Cardiovascular: Yes: Regular Rate and Rhythm, Murmur Respiratory: Yes: Diminished (at bases bilaterally with poor insp effort) Gastrointestinal Inspection: Yes: Distention, Scars (vertical midline pelvic surgical scar) ...Auscultate: Yes: Normoactive Bowel Sounds ...Palpate: No: Tenderness ...Percussion: No: Tympanitic Edema: Yes Neurological: Yes: Alert. No: Asterixis Labs: CBC, BMP 07/24/18 07:30 07/24/18 07:30 INR, PTT INR 1.47 (0.83-1.09) H 07/24/18 07:30 Problem List - Problems (1) Alcoholic cirrhosis of liver Assessment/Plan: Alc/CHC Cirrhosis: Decompensated with poor follow-up and poor compliance with alcohol cessation (last drink 3 days ago). Await peritoneal fluid analysis Discussed upper endoscopy for surveillance of esophageal varices in setting of prior variceal bleed. Dicussed potential risks of the procedure like but not limited to bleeding, perforation requiring surgery to repair, infection, sedation medication effects all of which could be potentially life threatening. He has agreed to the procedure. Consent obtained. On zosyn. Continue until after EGD. 2g low Na diet Advised need for complete alcohol cessation Q 6 month hepatic US to screen for HCC Needs to be connected back to liver center. Can make arrangements to see if he can be followed at the [facility] GI clinic. Will need diuresis. Restart once SBP excluded. Aldactone 100mg daily, Lasix 40mg daily. Daily weights / I's and O's Follow-up fluid analysis and make sure cytology was sent as well Code(s): K70.30 - ALCOHOLIC CIRRHOSIS OF LIVER WITHOUT ASCITES
[2018-07-24 14:07] LABS: BF WBC & OTHER NUCLEATED CELLS 61 /mm3
[2018-07-24 14:27] LABS: BODY FLUID MONOCYTE 30 %
--- NOTE | 2018-07-24 14:33 | PROC ---
Procedure Note Procedure: Called by patient's RN as they are having difficulty in obtaining a peripheral IV larger than 22ga. At least a 20ga needed as patient is to receive PRBCs. Patient placed in trendelenburg. Right neck prepped w/ chlorhexidine. Right EJ accessed with 20ga angiocath. Aspirates and flushes easily. Occlusive dressing applied. Ok to use line. Patient tolerated procedure well.
[2018-07-24] MEDS ORDERED: PIPERACILLIN/TAZOBACTAM 3.375 GM VIAL IVPB ONE ×2 (14:53→21:33)
[2018-07-24] MEDS ORDERED: DEXTROSE 5%-WATER - 50 ML IVPB ONE ×2 (14:53→21:33)
[2018-07-24] MEDS: PIPERACILLIN/TAZOB 3.375 GM 3.375 GM in DEXTROSE 5%-WATER - 50 ML IVPB SCH ×2 (15:14→17:43)
--- NOTE | 2018-07-24 20:59 | PN ---
Teaching Attending Note Name of Resident: Denny Nicolas ATTENDING PHYSICIAN STATEMENT I saw and evaluated the patient. I reviewed the resident's note and discussed the case with the resident. I agree with the resident's findings and plan as documented. SUBJECTIVE: Patient is comfortable.No fever or chills.feels well s/p 6 L paracentesis, No abdominal pain OBJECTIVE: Vital Signs Temperature 98.7 F 07/24/18 18:45 Pulse Rate 88 07/24/18 18:45 Respiratory Rate 18 07/24/18 18:45 Blood Pressure 119/79 07/24/18 18:45 O2 Sat by Pulse Oximetry (%) 97 07/24/18 09:00 GENERAL: lying in bed with no aute distress. HEENT: NC/AT, MMM, EOMI NECK: Trachea midline, full range of motion, supple. LUNGS: CTA b/l, HEART: RRR no m/r/g ABDOMEN: midline surgical scar, soft, NT, s/p paracentesis EXTREMITIES: 2+ pulses, wrapped LE due to chronic changes , no drainage, no discharge NEUROLOGICAL: CN 2-12 grossly intact, positive for asterixis. SKIN: Warm, dry, normal turgor, no jaundice WBC 3.0 K/mm3 (4.0-10.0) L 07/24/18 07:30 RBC 2.10 M/mm3 (4.00-5.60) L 07/24/18 07:30 Hgb 6.9 GM/dL (11.7-16.9) L* 07/24/18 07:30 Hct 20.3 % (35.4-49) L 07/24/18 07:30 MCV 96.6 fl (80-96) H 07/24/18 07:30 MCHC 34.1 g/dl (32.0-35.9) 07/24/18 07:30 RDW 22.0 % (11.9-15.9) H 07/24/18 07:30 Plt Count 73 K/MM3 (134-434) L D 07/24/18 07:30 MPV 7.0 fl (7.5-11.1) L 07/24/18 07:30 CMP Sodium 139 mmol/L (136-145) 07/24/18 07:30 Potassium 4.2 mmol/L (3.5-5.1) 07/24/18 07:30 Chloride 111 mmol/L (98-107) H 07/24/18 07:30 Carbon Dioxide 23 mmol/L (21-32) 07/24/18 07:30 Anion Gap 5 MMOL/L (8-16) L 07/24/18 07:30 BUN 25.7 mg/dL (7-18) H 07/24/18 07:30 Creatinine 0.9 mg/dL (0.55-1.3) 07/24/18 07:30 Random Glucose 76 mg/dL (74-106) 07/24/18 07:30 Calcium 7.7 mg/dL (8.5-10.1) L 07/24/18 07:30 Total Bilirubin 2.6 mg/dL (0.2-1) H 07/24/18 07:30 AST 118 U/L (15-37) H 07/24/18 07:30 ALT 47 U/L (13-61) 07/24/18 07:30 Alkaline Phosphatase 128 U/L (45-117) H 07/24/18 07:30 Total Protein 5.5 g/dl (6.4-8.2) L 07/24/18 07:30 Albumin 2.1 g/dl (3.4-5.0) L 07/24/18 07:30 CARDIAC ENZYMES Troponin I 0.03 ng/ml (0.00-0.05) 07/22/18 22:30 Current Medications Generic Name Dose Route Start Last Admin Trade Name Freq PRN Reason Stop Dose Admin Folic Acid 1 mg 07/23/18 10:00 07/24/18 09:50 Folic Acid - PO 1 mg DAILY [facility] Administration Octreotide Acetate 200 mcg/ 500 mls @ 20.833 mls/hr 07/23/18 04:00 07/24/18 05:21 Octreotide Acetate 1,000 mcg/ IVPB Not Given Dextrose ASDIR [facility] Piperacillin Sod/Tazobactam 50 mls @ 100 mls/hr 07/24/18 13:45 07/24/18 17:43 Sod 3.375 gm/ Dextrose IVPB Not Given Q8H-IV [facility] Protocol Piperacillin Sod/Tazobactam 50 mls @ 100 mls/hr 07/24/18 21:00 Sod 3.375 gm/ Dextrose IVPB 07/24/18 21:29 ONCE ONE Lactulose 30 gm 07/23/18 01:37 07/24/18 17:37 Cephulac (Oral Use) PO 30 gm Q6HPO [facility] Administration Lorazepam 0.5 mg 07/26/18 11:00 Ativan - PO 07/27/18 10:59 Q4H PRN Symptoms of Withdrawal Lorazepam 1 mg 07/24/18 08:39 Ativan - PO 07/25/18 08:38 Q4H PRN Symptoms of Withdrawal Nadolol 40 mg 07/23/18 10:00 07/24/18 12:32 Corgard - PO Not Given DAILY [facility] Pantoprazole Sodium 40 mg 07/23/18 10:00 07/24/18 12:32 Protonix Iv IVPUSH Not Given DAILY [facility] Rifaximin 550 mg 07/23/18 10:00 07/24/18 09:50 Xifaxan - PO 550 mg BID K[facility]ICK Administration Tamsulosin HCl 0.4 mg 07/23/18 22:00 07/23/18 22:19 Flomax - PO 0.4 mg HS [facility] Administration Home Medications Medication Instructions Recorded Albuterol Sulfate Inhaler - 2 puff IH Q4H PRN #1 inhaler 02/15/17 [Ventolin HFA Inhaler -] Pantoprazole Sodium [Protonix] 40 mg PO DAILY #30 tablet. 02/15/17 Spironolactone [Aldactone -] 75 mg PO BID #60 tablet 02/15/17 Thiamine HCl [Vitamin B1 -] 100 mg PO HS tablet 09/27/17 Nadolol 80 mg PO DAILY 07/23/18 Quetiapine Fumarate [Seroquel -] 25 mg PO BID 07/23/18 07/22/18 21:50 Cellulitis Gram Stain - Final ASSESSMENT AND PLAN: Patient is a 48yo male with PMHx of HTN, Hep C, cirrhosis, polysubstance abuse , ascites, chronic RLE wound, reports esophageal banding at [facility] within past year presented with AMS due to hepatic encephalopathy , abdominal pain, coffee ground emesis # Alcoholic liver cirrhosis with ascites s/p 6 liter of paracentesis on IV antibiotic, cont Nadolol, folate, hold diuretics for now. low salt diet continue, further w/u by GI, EGD for surveillance of esophageal varices in setting of prior variceal bleed. as per GI patient agreed for EGD , Consent obtained by GI. On zosyn. Continue until after EGD as per GI. advised need for complete alcohol cessation, Q 6 month hepatic US to screen for HCC # Acute change of mental status due to hepatic encephalopathy with ammonia level of 345-->194 today , on lactulose and rifaximin, GI consult ordered IR guided paracentesis for diagnostic and therapeutic tap with albumin replacement for cell count and cx, blood cx x2, UA/Ucx, CXR need to r/o SBP, no evidence of bleeding currently can d/c octreotide drip #anemia reports coffee ground emesis on octreotide gtt, IV PTX #RLE wound s/p vanc/zosyn in ED, chronic changes DVT px: cannot Ac since patient reports coffee ground emesis As per GI: Patient needs to be connected back to liver center. Can make arrangements to see if he can be followed at the [facility] GI clinic. Will need diuresis. Restart once SBP excluded. Aldactone 100mg daily, Lasix 40mg daily. Daily weights / I's and O's Follow-up fluid analysis and f/u cytology
[2018-07-24] MEDS ORDERED: PIPERACILLIN/TAZOB 3.375 GM 3.375 GM in DEXTROSE 5%-WATER - 50 ML IVPB ONE (21:00)
[2018-07-24] MEDS: TAMSULOSIN HCL 0.4 MG CAP PO SCH (21:44)
[2018-07-25] MEDS: LACTULOSE 20 GM/30 ML UDC (FOR ORAL USE ONLY) PO SCH ×3 (00:10→13:17)
[2018-07-25] MEDS ORDERED: PIPERACILLIN/TAZOBACTAM 3.375 GM VIAL IVPB ONE ×2 (02:35→09:12)
[2018-07-25] MEDS ORDERED: DEXTROSE 5%-WATER - 50 ML IVPB ONE ×2 (02:35→09:12)
[2018-07-25] MEDS: PIPERACILLIN/TAZOB 3.375 GM 3.375 GM in DEXTROSE 5%-WATER - 50 ML IVPB SCH ×2 (02:40→12:46)
[2018-07-25] MEDS ORDERED: MAG HYDROX/AL HYDROX/SIMETH 30 ML UNIT-DOSE CUP PO ONE (04:03)
[2018-07-25] MEDS: OCTREOTIDE ACETATE 200 MCG, OCTREOTIDE ACETATE 1,000 MCG in DEXTROSE 5%-WATER - 496 ML IVPB SCH (04:21)
[2018-07-25 06:56] LABS: INR 1.5 (0.83-1.09); PROTHROMBIN TIME (PATIENT) 17.8 SEC (9.7-13.0)
[2018-07-25 06:57] LABS: BASO % 1.5 % (0-2.0); EOS % 0.6 % (0-4.5); HEMATOCRIT 22.6 % (35.4-49); HEMOGLOBIN 7.9 GM/dL (11.7-16.9); LYMPH % 20.8 % (8-40); MCHC 34.9 g/dl (32.0-35.9); MEAN CELL VOLUME 94.3 fl (80-96); MEAN PLT VOLUME 6.7 fl (7.5-11.1); MONO % 14.5 % (3.8-10.2); NEUT % 62.6 % (42.8-82.8); PLATELET COUNT 59 K/MM3 (134-434); RBC 2.39 M/mm3 (4.00-5.60); RDW 21.5 % (11.9-15.9)
[2018-07-25 07:04] LABS: ALBUMIN 1.9 g/dl (3.4-5.0); BILIRUBIN,TOTAL 2.2 mg/dL (0.2-1); BLOOD UREA NITROGEN 16.2 mg/dL (7-18); CALCIUM 7.3 mg/dL (8.5-10.1); CREATININE 0.8 mg/dL (0.55-1.3); PHOSPHOROUS 2.8 mg/dL (2.5-4.9); POTASSIUM 3.6 mmol/L (3.5-5.1); TOT PROT 5.4 g/dl (6.4-8.2)
[2018-07-25] MEDS ORDERED: PT OWN MED DRAWER 7, Y5N ONE (09:12)
[2018-07-25] MEDS: FOLIC ACID 1 MG TABLET (FP) PO SCH (09:19)
[2018-07-25] MEDS: RIFAXIMIN 550 MG TABLET (UD) PO SCH (09:19)
[2018-07-25] MEDS: PANTOPRAZOLE SODIUM 40 MG VIAL IVPUSH SCH (09:19)
[2018-07-25] MEDS: NADOLOL 40 MG TABLET (FP) PO SCH (09:20)
[2018-07-25] MEDS ORDERED: MEROPENEM 1 GM in DEXTROSE 5%-WATER 100 ML IVPB SCH (12:45)
[2018-07-25] MEDS ORDERED: AMPICILLIN - 1 GM in SODIUM CHLORIDE 100 ML IVPB SCH (12:45)
--- NOTE | 2018-07-25 12:55 | PN ---
Progress Note, Physician History of Present Illness: patient went for endoscopy as h and h was low cx results noted - Current Medication List Current Medications: Active Medications Folic Acid (Folic Acid -) 1 mg PO DAILY [facility]S [facility] BEDS AT THE [facility] Last Admin: 07/25/18 09:19 Dose: 1 mg Octreotide Acetate 200 mcg/Octreotide Acetate 1,000 mcg/Dextrose 500 mls @ 20.833 mls/hr IVPB ASDIR [facility] Last Admin: 07/25/18 04:21 Dose: Not Given Ampicillin Sodium 1 gm/ Sodium (Chloride) 100 mls @ 200 mls/hr IVPB Q8H-IV [facility] ; Protocol Meropenem 1 gm/ Dextrose 100 mls @ 200 mls/hr IVPB Q8H-IV [facility] Lactulose (Cephulac (Oral Use)) 30 gm PO Q6HPO COUNTS INCLUDE 234 BEDS AT THE [facility] Last Admin: 07/25/18 06:22 Dose: Not Given Lorazepam (Ativan -) 0.5 mg PO Q4H PRN PRN Reason: Symptoms of Withdrawal Stop: 07/27/18 10:59 Nadolol (Corgard -) 40 mg PO DAILY [facility]CLUDE 234 BEDS AT [facility] Last Admin: 07/25/18 09:20 Dose: 40 mg Pantoprazole Sodium (Protonix Iv) 40 mg IVPUSH DAILY [facility]S [facility]CLUDE 234 BEDS AT THE [facility] Last Admin: 07/25/18 09:19 Dose: 40 mg Rifaximin (Xifaxan -) 550 mg PO BID [facility]S [facility]CLUDE 234 BEDS AT THE [facility] Last Admin: 07/25/18 09:19 Dose: 550 mg Tamsulosin HCl (Flomax -) 0.4 mg PO HS [facility]S INCLUDE 234 BEDS AT THE [facility] Last Admin: 07/24/18 21:44 Dose: 0.4 mg - Objective Vital Signs: Vital Signs Temperature 97.7 F 07/25/18 12:04 Pulse Rate 62 07/25/18 12:19 Respiratory Rate 20 07/25/18 12:19 Blood Pressure 96/91 07/25/18 12:19 O2 Sat by Pulse Oximetry (%) 100 07/25/18 12:19 Constitutional: Yes: No Distress, Calm Cardiovascular: Yes: S1, S2 Respiratory: Yes: Regular, CTA Bilaterally Gastrointestinal: Yes: Ascites Musculoskeletal: Yes: WNL Extremities: Yes: Other Wound/Incision: Yes: Dressing Dry and Intact Neurological: Yes: Alert Labs: CBC, BMP 07/25/18 05:15 07/25/18 05:15 INR, PTT INR 1.50 (0.83-1.09) H 07/25/18 05:15 Assessment/Plan Pt. is a 48 y.o. M w/ PMHx. of HTN, Hep C , Cirrhosis, Polysubstance abuse ( Cocaine, EtOH, Heroin- IV and inhalation), ascites, chronic RLE wound presenting for altered mental status. Acute Hepatic Encephalopathy Liver Cirrhosis w/ ascites, esophageal varices, lower extremity edema and scrotal swelling Hemolytic? Anemia vs. Anemia of chronic Disease wound infection plan continue abx will change abx to amp and rest as per the team wound care gi on board
[2018-07-25] MEDS ORDERED: MEROPENEM 1 GM VIAL (RESTRICTED TO ID) IVPB ONE ×2 (13:07→17:09)
[2018-07-25] MEDS ORDERED: DEXTROSE 5%-WATER 100 ML IVPB ONE ×2 (13:07→17:10)
[2018-07-25] MEDS ORDERED: oxyCODONE HCL 5 MG TABLET PO ONE (13:55)
[2018-07-25 15:12] LABS: BODY FLUID ALBUMIN 0.4 g/dL (.)
--- NOTE | 2018-07-25 16:11 | PATH ---
Cytology Non-Gynecological Report Patient Name: JAMESON CARTER [facility]. Rec. #: [id number] /Age/Gender: 1970 (Age: 48) / M Account: [id number] Location: [facility] PEDS/ADOL Taken: 07/24/2018 Received: 07/24/2018 Reported: 07/25/2018 Physicians: Charo Morocho MD Specimen(s) Received A: ABDOMINAL FLUID B: ABDOMINAL FLUID Clinical History Ascites Final Diagnosis A-B. ABDOMINAL FLUID, PARACENTESIS: SATISFACTORY FOR EVALUATION. NO MALIGNANT CELLS IDENTIFIED. MESOTHELIAL CELLS AND LYMPHOCYTES PRESENT. Comment: Recommend correlation with clinical findings and follow up as clinically indicated. Electronically Signed Camryn Edwards M.D. Gross Description A. Approximately 50 cc of yellow fluid received fixed in 50% alcohol. One cytofunnel prepared and Pap stained. One cellblock prepared. B. Approximately 6000 cc of yellow fluid received fresh. One cytofunnel prepared and Pap stained. One cellblock prepared.
--- NOTE | 2018-07-25 17:45 | PN ---
Teaching Attending Note Name of Resident: Abhishek Hahn ATTENDING PHYSICIAN STATEMENT I saw and evaluated the patient. I reviewed the resident's note and discussed the case with the resident. I agree with the resident's findings and plan as documented. SUBJECTIVE: No fever or chills. No CHOWDHURY . no SOB. no bleeding today. has generalized aches OBJECTIVE: awake, alert oriented x 3. aware of his medical condition CV: RRR, possible murmur in LUSB Lungs: rales on L base Abd: distended. NT, mid line surgical scar. Ext : declined unwrapping R leg to evaluate the wounds ASSESSMENT AND PLAN: 46 y/o man with h/o alcohol abuse, multisubstance abuse, anemia, cirrhosis, HCV , SBO s/p Bowel resection ,variceal banding in [facility] recently, Ascitis, chronic RLE wound, who presented AMS and was found to have hepatic encephalopathy and anemia 1- Acute hepatic encephalopathy: resolved now 2- acute on chronic iron def anemia 3- Ascitis s/p 6 L removal with paracentesis 4- RLE cellulitis 5- Alcohol abuse . No signs of withdrawal 6- H/O polysubstance abuse plan : - EGD report reviewed. - cont PPI - monitor Hb for need to transfuse - start lasix and aldactone as there is no signs of SBP - cont lactulose and rifaximine - wound cx reviewed. Abx changed by ID - 6L were removed yesterday , but no Albumin was given. No point form giving today - monitor renal function and HB - plan to f/u with [facility] liver [facility] - need EGD in 2-3 weeks for banding - need US q 6 months patient wants to leave AMA. he is awake, and oriented x 3, and understands his medical conditions and capable of making decisions. Risks including bleeding, sepsis, syncope, falls, and even were explained to him. He acknowledged and still wants to leave AMA . papers signed. Resident to remove EJ.
[2018-07-25 17:49] VITALS: BP 110/64; PULSE 56; TEMP 97.9
[2018-07-26] MEDS ORDERED: SPIRONOLACTONE 25 MG TABLET (FP) PO SCH (10:00)
[2018-07-26] MEDS ORDERED: FUROSEMIDE 40 MG TABLET (FP) PO SCH (10:00)
[2018-07-26] MEDS ORDERED: LORazepam 0.5 MG TABLET PO PRN (11:00)
--- NOTE | 2018-07-28 13:46 | DS ---
Physical Exam: HOSPITAL COURSE: MICROBIOLOGY: UCx 07/22: NG Wound Cx 07/22: Pseudomonas, VRE, Proteus, coag- Staph BCx 07/22: NG Ascites Cx 07/24: negative IMAGING: CXR 07/22: "A single AP view of the chest has been submitted. There is a weak aspiration with chin artifact and congestive changes with prominent mediastinum. Follow-up recommended." Scrotum US 07/23: "Markedly limited study with a large right-sided hydrocele and no evidence of right testicular torsion. Clinical correlation and follow-up recommended. Please see above discussion." Abd US 07/25: "1. Large amount of ascites. 2. Shrunken and heterogeneous liver consistent with cirrhosis. There is no evidence of an hepatic mass or acute abnormalities." Date of Admission:07/22/18 Patient is a 48 y/o M w/ PMHx HTN, Hep C, cirrhosis, polysubstance abuse, ascites, chronic RLE wound, s/p esophageal banding at [facility] in 2017 p/w AMS, abdominal pain, coffee ground emesis. He was found to be anemic. With a RLE wound suspicious for cellulitis. Microbiology was as above. He was treated for hepatic encephalopathy medically. GI and ID were consulted. He underwent diagnostic paracentesis for evaluation of ascitic fluid. He underwent EGD with GI which found banded varices and small GE junction ulcers. Repeat endoscopic evaluation was recommended. On 07/25/18, the patient elected to leave AMA. The risks of doing so including permanent injury and , were explained to him at length. He demonstrated capacity and understanding. Date of Discharge: 07/25/18 Minutes to complete discharge: 40 Discharge Summary Reason For Visit: CELLULITIS,SEPSIS Condition: Stable - Instructions Disposition: AGAINST MEDICAL ADVICE - Home Medications Comprehensive Discharge Medication List: Ambulatory Orders Albuterol Sulfate Inhaler - [Ventolin HFA Inhaler -] 2 puff IH Q4H PRN #1 inhaler 02/15/17 Pantoprazole Sodium [Protonix] 40 mg PO DAILY #30 tablet. 02/15/17 Spironolactone [Aldactone -] 75 mg PO BID #60 tablet 02/15/17 Thiamine HCl [Vitamin B1 -] 100 mg PO HS tablet 09/27/17 Nadolol 80 mg PO DAILY 07/23/18 Quetiapine Fumarate [Seroquel -] 25 mg PO BID 07/23/18 This patient is new to me today: No Emergency Visit: No Critical Care patient: No - Discharge Referral Referred to [facility] No
== END 2018-07-25 18:21 | disposition left against medical advice (07) | DRG 264 ==
LOC: JER 21:22 → JERBED 23:21 → J4S 07-23 06:02
PROVIDERS: ADMIT Internal Medicine; ATTEND Internal Medicine
PROC: 0W9G3ZX Drainage of Peritoneal Cavity, Percutaneous Approach, Diagnostic (ICD-10-PCS; principal; 2018-07-24)
PROC: 30233N1 Transfusion of Nonautologous Red Blood Cells into Peripheral Vein, Percutaneous Approach (ICD-10-PCS; 2018-07-24)
DX: K72.00 Acute and subacute hepatic failure without coma (principal); K70.31 Alcoholic cirrhosis of liver with ascites; I10 Essential (primary) hypertension; R60.9 Edema, unspecified; N50.89 Other specified disorders of the male genital organs; F10.10 Alcohol abuse, uncomplicated; F11.10 Opioid abuse, uncomplicated; E88.09 Other disorders of plasma-protein metabolism, not elsewhere classified; I85.00 Esophageal varices without bleeding; D50.9 Iron deficiency anemia, unspecified; L03.115 Cellulitis of right lower limb
CPT/HCPCS: 36415; 36430; 36511; 71045-TC-FY; 76705-TC; 76870-TC; 76942-TC; 80048; 80053; 80076; 80307; 81003; 82042; 82140; 82150; 82465; 82803; 82945; 83605; 83615; 83690; 83735; 83986; 84100; 84157; 84478; 84484; 85025; 85610; 85730; 86850; 86900; 86901; 86922; 87040; 87070; 87075; 87077; 87086; 87102; 87116; 87186; 87205; 87206; 87210; 88108; 88305-TC; 93005; 93010; 93306-TC; 97116-GP; 97161-GP; 99285-25; J0131; J7030; P9038; P9058

== ENCOUNTER 2018-08-04 15:21 | Inpatient (IN) | payer OTHER ==
[2018-08-04 15:30] VITALS: BMI 32.8
--- NOTE | 2018-08-04 15:41 | PDOC ---
History of Present Illness - General History Source: Patient Exam Limitations: No Limitations - History of Present Illness Initial Comments: 08/04/18 15:52 48 year old male with PMH liver cirrhosis, ETOH abuse, polysubstance abuse, HCV , SBO, esophageal varices s/p banding, GIB, ascites, chronic RLE wound, hepatic encephalopathy brought to ED via EMS for LLQ pain and chronic RLE wound. Pt reported he has been having intermittent LLQ abdominal pain with abdominal distension for the last few days. Pt reported last BM today, was normal, no blood. Pt denied nausea/vomiting/diarrhea. Pt admitted to chills. Pt also stated that his chronic RLE wound has been worsening and it has been increasingly difficult for him to ambulate. Pt reported his mother and sister take care of his wound, he has no wound care. Allergies: morphine <Danielle Jean-Baptiste - Last Filed: 08/06/18 07:48> <Camryn Galarza - Last Filed: 08/06/18 10:35> - General Chief Complaint: Wound Stated Complaint: PAIN Time Seen by Provider: 08/04/18 15:41 Past History - Past Medical History Anemia: No Asthma: No Cancer: No Cardiac Disorders: No CVA: No COPD: No CHF: No DVT: No Dementia: No Diabetes: No Dialysis: No GI Disorders: Yes (GI BLEED, SBO) Disorders: No HTN: Yes Hypercholesterolemia: No Liver Disease: Yes (HEPATITS C,cirrhosis) Psychiatric Problems: Yes (anxiety) Seizures: No Thyroid Disease: No - Surgical History Abdominal Surgery: Yes (GI BLEED/HERNIA, Partial SBO resection) Appendectomy: No Cardiac Surgery: No Cholecystectomy: No Lung Surgery: No Neurologic Surgery: Yes Orthopedic Surgery: No - Immunization History Immunization Up to Date: Yes - Suicide/Smoking/Psychosocial Hx Smoking Status: Yes Smoking History: Unknown if ever smoked Have you smoked in the past 12 months: No Number of Cigarettes Smoked Daily: 3 If you are a former smoker, when did you quit?: 10yrs Information on smoking cessation initiated: No 'Breaking Loose' booklet given: 09/24/17 Hx Alcohol Use: No Drug/Substance Use Hx: No Substance Use Type: Alcohol, Heroin Hx Substance Use Treatment: (unobtainable) <Danielle Jean-Baptiste - Last Filed: 08/06/18 07:48> <Camryn Galarza - Last Filed: 08/06/18 10:35> - Past Medical History Allergies/Adverse Reactions: Allergies Allergy/AdvReac Type Severity Reaction Status Date / Time morphine Allergy Verified 08/04/18 15:30 Home Medications: Ambulatory Orders Albuterol Sulfate Inhaler - [Ventolin HFA Inhaler -] 2 puff IH Q4H PRN #1 inhaler 02/15/17 Pantoprazole Sodium [Protonix] 40 mg PO DAILY #30 tablet. 02/15/17 Spironolactone [Aldactone -] 75 mg PO BID #60 tablet 02/15/17 Thiamine HCl [Vitamin B1 -] 100 mg PO HS tablet 09/27/17 Nadolol 80 mg PO DAILY 07/23/18 Quetiapine Fumarate [Seroquel -] 25 mg PO BID 07/23/18 Review of Systems - Review of Systems Able to Perform ROS?: Yes Comments:: 08/04/18 15:53 General: denied fever, chills, generalized weakness. HEENT: denied sore throat, rhinorrhea, ear pain. Heart: denied chest pain, palpitations, syncope, diaphoresis. Respiratory: denied shortness of breath, cough, sputum production, hemoptysis. Abdomen: admitted to abdominal pain, abdominal distension. denied nausea, vomiting, diarrhea, constipation, blood in stool. : denied dysuria, increased urinary frequency, hematuria, urinary incontinence , flank pain. Back: denied back pain. Musculoskeletal: denied joint pain, muscle pain, joint swelling. Neurological: denied headache, dizziness, numbness, tingling, weakness. Skin: admitted to RLE wound. denied rash, laceration, abrasion. <Danielle Jean-Baptiste - Last Filed: 08/06/18 07:48> *Physical Exam - Vital Signs Last Vital Signs Temp Pulse Resp BP Pulse Ox 99.4 F 112 H 18 116/78 99 08/04/18 15:26 08/04/18 15:26 08/04/18 15:26 08/04/18 15:26 08/04/18 15:26 - Physical Exam Comments: 08/04/18 15:53 Constitutional: Well-nourished, Well-developed, appearing stated age. HEENT: head is normocephalic, atraumatic. EOMI. PERRLA. Neck: supple. Full ROM. Heart: regular rhythm. no murmurs, rubs or gallops. Lungs: clear to auscultation bilaterally. no crackles, rhonchi or wheezing. no stridor. Abdomen: soft, distended, pitting edema. tenderness to palpation of LLQ. increased bowel sounds. no rebound, guarding, masses. Extremities: peripheral pulses intact. 4+ pitting edema bilaterally. Neurological: CN 2-12 grossly intact. moves all four extremities. Psych: awake, alert, oriented x3. follows commands. answers questions appropriately. Skin: RLE ulcer with circumferential erythema/edema. Genital: sctrotal swelling <Danielle Jean-Baptiste - Last Filed: 08/06/18 07:48> - Vital Signs Last Vital Signs Temp Pulse Resp BP Pulse Ox 98.3 F 111 H 18 126/64 98 08/05/18 10:29 08/05/18 10:29 08/05/18 10:29 08/05/18 10:29 08/05/18 10:29 <Camryn Galarza - Last Filed: 08/06/18 10:35> Procedures - Additional Procedures Additional Procedures: other Progress: 08/06/18 10:32 The indication for the paracentesis is abdominal pain and fever, +ascites. Consent (verbal and/or written) was obtained from the patient after the risks and benefits were discussed. PROCEDURE: Diagnostic & Therapeutic Paracentesis, U/S guided to identify most accessible fluid pocket. Sterile technique including mask, gown, and gloves were used. The area of the LEFT abdomen was prepped and draped in a sterile fashion using chlorhexidine scrub. 1% lidocaine was used to anesthetize the region. The 20 gauge paracentesis catheter was inserted and advanced with negative pressure under ultrasound guidance. No blood was aspirated. Catheter threaded through needle. Clear yellow peritoneal fluid was retrieved and collected. 200 ml peritoneal fluid was collected and sent for laboratory analysis, catheter removed. The catheter was removed, Gauze was placed where the procedure was performed for compression. no leaking was noted. The patient tolerated the procedure well. I was present for the entire procedure and there were no complications <Camryn Galarza - Last Filed: 08/06/18 10:35> ED Treatment Course - LABORATORY CBC & Chemistry Diagram: 08/04/18 16:10 08/04/18 16:10 <Danielle Jean-Baptiste - Last Filed: 08/06/18 07:48> - LABORATORY CBC & Chemistry Diagram: 08/04/18 16:10 08/04/18 16:10 - ADDITIONAL ORDERS Additional order review: 08/04/18 19:02 Gram Stain - Final Peritoneal Fluid Body Fluid Culture - Preliminary NO AEROBIC GROWTH, 24 HRS 08/04/18 16:13 Gram Stain - Final Leg - Right Lower Wound Culture - Preliminary Proteus Species Non Lactose Fermenting Gnb Non Lactose Fermenting Gnb#2 Lactose Fermenting Neg Bacilli Lactose Fermenting Neg Bacilli#2 Group D Strep Or Entero Coccus 08/04/18 16:10 Blood Culture - Preliminary Blood - Peripheral Venous Alpha Hemolytic Streptococcus 08/04/18 16:04 Blood Culture - Preliminary Blood - Peripheral Venous NO GROWTH OBTAINED AFTER 24 HOURS, INCUBATION TO CONTINUE FOR 4 DAYS. 08/04/18 19:02 Gram Stain - Final Paracentesis 08/04/18 16:10 RBC 2.95 L MCV 95.1 MCHC 34.0 RDW 20.6 H MPV 6.3 L Neutrophils % 73.8 Lymphocytes % 7.9 L D Monocytes % 17.6 H Eosinophils % 0.3 Basophils % 0.4 - Medications Given in the ED: ED Medications Discontinued Medications Generic Name Dose Route Start Last Admin Trade Name Freq PRN Reason Stop Dose Admin Haloperidol 5 mg 08/04/18 20:15 08/04/18 20:25 Haldol Injection (Fast Acting) - IM 08/04/18 20:16 5 mg ONCE ONE Administration Hydromorphone HCl 2 mg 08/04/18 17:36 08/04/18 18:08 Dilaudid Injection - IVPUSH 08/04/18 17:37 2 mg ONCE ONE Administration Hydromorphone HCl 0.5 mg 08/05/18 09:45 08/05/18 10:33 Dilaudid Vial - IVPB 0.5 mg Q3H PRN Administration PAIN LEVEL 6-10 Vancomycin HCl 1,000 mg/ 250 mls @ 166.667 mls/hr 08/04/18 16:25 08/04/18 17: 04 Dextrose IVPB 08/04/18 17:54 166.667 mls/hr ONCE ONE Administration Protocol Piperacillin Sod/Tazobactam 100 mls @ 200 mls/hr 08/04/18 16:25 08/04/18 16: 45 Sod 4.5 gm/ Dextrose IVPB 08/04/18 16:54 200 mls/hr ONCE ONE Administration Protocol Sodium Chloride 1,000 mls @ 1,000 mls/hr 08/04/18 17:14 08/04/18 17:33 Normal Saline - IV 08/04/18 18:13 Not Given ASDIR STA Piperacillin Sod/Tazobactam 50 mls @ 100 mls/hr 08/05/18 08:00 08/05/18 08:39 Sod 3.375 gm/ Dextrose IVPB 08/06/18 00:29 100 mls/hr Q8H KENDRICK Administration Lactated Ringer's 500 ml 08/04/18 17:36 08/04/18 18:06 Lactated Ringers Solution IV 08/04/18 17:37 500 ml ONCE ONE Administration Lactulose 30 gm 08/05/18 01:30 08/05/18 06:54 Cephulac (Oral Use) PO Not Given Q6HPO KENDRICK Nadolol 80 mg 08/05/18 10:00 08/05/18 10:33 Corgard - PO 80 mg DAILY KENDRICK Administration Pantoprazole Sodium 40 mg 08/05/18 10:00 08/05/18 10:33 Protonix - PO 40 mg DAILY KENDRICK Administration Rifaximin 550 mg 08/05/18 01:30 08/05/18 10:36 Xifaxan - PO Not Given BID KENDRICK <Camryn Galarza - Last Filed: 08/06/18 10:35> Medical Decision Making - Medical Decision Making 08/04/18 15:54 48 year old male with above PMH BIBA to ED for lower extremity wounds, was found on the street. Chart review: Recent admission for hepatic encephalopathy -Admitted 07/22/18 -Paracentesis performed for ascites -Pt signed out AMA 07/25/18 Initial Vital Signs Temp Pulse Resp BP Pulse Ox 99.4 F 112 H 18 116/78 99 08/04/18 15:26 08/04/18 15:26 08/04/18 15:26 08/04/18 15:26 08/04/18 15:26 Afebrile. Tachycardic. No tachypnea. No hypotension. No hypoxia on room air. Labs ordered: CBC, CMP, lactate, blood cultures, lipase Imaging ordered: CT abdomen/pelvis with IV contrast Medications ordered: normal saline bolus 1000 cc, vancomycin, zosyn EKG performed at 1701: rate 111, regular rhythm, normal axis, normal intervals, no acute ST changes. 08/04/18 17:06 CBC WBC 7.1 K/mm3 (4.0-10.0) 08/04/18 16:10 RBC 2.95 M/mm3 (4.00-5.60) L 08/04/18 16:10 Hgb 9.5 GM/dL (11.7-16.9) L 08/04/18 16:10 Hct 28.0 % (35.4-49) L D 08/04/18 16:10 MCV 95.1 fl (80-96) 08/04/18 16:10 MCH 32.3 pg (25.7-33.7) 08/04/18 16:10 MCHC 34.0 g/dl (32.0-35.9) 08/04/18 16:10 RDW 20.6 % (11.9-15.9) H 08/04/18 16:10 Plt Count 147 K/MM3 (134-434) D 08/04/18 16:10 MPV 6.3 fl (7.5-11.1) L 08/04/18 16:10 Absolute Neuts (auto) 5.2 K/mm3 (1.5-8.0) 08/04/18 16:10 Neutrophils % 73.8 % (42.8-82.8) 08/04/18 16:10 Lymphocytes % 7.9 % (8-40) L D 08/04/18 16:10 Monocytes % 17.6 % (3.8-10.2) H 08/04/18 16:10 Eosinophils % 0.3 % (0-4.5) 08/04/18 16:10 Basophils % 0.4 % (0-2.0) 08/04/18 16:10 Nucleated RBC % 0 % (0-0) 08/04/18 16:10 No leuckocytosis. Normocytic anemia - at baseline. No thrombocytopenia. 08/04/18 17:15 CMP Sodium 133 mmol/L (136-145) L 08/04/18 16:10 Potassium 4.9 mmol/L (3.5-5.1) 08/04/18 16:10 Chloride 105 mmol/L (98-107) 08/04/18 16:10 Carbon Dioxide 19 mmol/L (21-32) L 08/04/18 16:10 Anion Gap 9 MMOL/L (8-16) 08/04/18 16:10 BUN 9.3 mg/dL (7-18) 08/04/18 16:10 Creatinine 0.6 mg/dL (0.55-1.3) 08/04/18 16:10 Est GFR (CKD-EPI)AfAm 138.77 08/04/18 16:10 Est GFR (CKD-EPI)NonAf 119.73 08/04/18 16:10 Random Glucose 101 mg/dL (74-106) 08/04/18 16:10 Calcium 7.8 mg/dL (8.5-10.1) L 08/04/18 16:10 Total Bilirubin 3.1 mg/dL (0.2-1) H 08/04/18 16:10 AST 129 U/L (15-37) H 08/04/18 16:10 ALT 75 U/L (13-61) H 08/04/18 16:10 Alkaline Phosphatase 220 U/L (45-117) H 08/04/18 16:10 Troponin I 0.02 ng/ml (0.00-0.05) 08/04/18 16:10 Total Protein 6.1 g/dl (6.4-8.2) L 08/04/18 16:10 Albumin 2.0 g/dl (3.4-5.0) L 08/04/18 16:10 Lipase 941 U/L (73-393) H 08/04/18 16:10 Mild hyponatremia Transamintis with elevated bilirubin Lipase 3X normal Lactate 2.5 Pancreatitis with transaminitis. Medications ordered: LR bolus 500 cc 08/04/18 17:37 Bedside ultrasound showed large amount of ascities, small cirrhotic liver. Pt needs diagnostic tap for SBP rule out. Pt informed of risks/benefit of paracentesis. Pt signed consent. 08/04/18 17:44 Stool for blood negative 06/22/19 18:27 Diagnostic Paracentesis was performed without difficulty. See procedure note. Labs ordered. Pending CT abdomen/pelvis. 08/04/18 19:03 Pt signed out to Dr. Early. -Pending imaging -Pending disposition <Dnaielle Jean-Baptiste - Last Filed: 08/06/18 07:48> *DC/Admit/Observation/Transfer - Discharge Dispostion Decision to Admit order: Yes <Danielle Jean-Baptiste - Last Filed: 08/06/18 07:48> - Discharge Dispostion Decision to Admit order: Yes <Camryn Galarza - Last Filed: 08/06/18 10:35> Diagnosis at time of Disposition: Transaminitis, Pancreatitis, Abdominal distension, Lactic acidosis - Discharge Dispostion Condition at time of disposition: Guarded
[2018-08-04] MEDS ORDERED: PIPERACILLIN/TAZOB 4.5 GM 4.5 GM in DEXTROSE 5%-WATER 100 ML IVPB ONE (16:25)
[2018-08-04] MEDS ORDERED: VANCOMYCIN 1,000 MG in DEXTROSE 5%-WATER - 250 ML IVPB ONE (16:25)
[2018-08-04] MEDS ORDERED: PIPERACILLIN/TAZOB 4.5 GM 4.5 GM/100 ML BAG IVPB ONE (16:33)
[2018-08-04] MEDS ORDERED: VANCOMYCIN 1 GRAM (PRE-DOCKED) 1,000 MG/250 ML BAG IVPB ONE (16:33)
[2018-08-04 16:36] LABS: BASO % 0.4 % (0-2.0); EOS % 0.3 % (0-4.5); HEMOGLOBIN 9.5 GM/dL (11.7-16.9); LYMPH % 7.9 % (8-40); MCH 32.3 pg (25.7-33.7); MEAN CELL VOLUME 95.1 fl (80-96); MEAN PLT VOLUME 6.3 fl (7.5-11.1); MONO % 17.6 % (3.8-10.2); NEUT % 73.8 % (42.8-82.8); PLATELET COUNT 147 K/MM3 (134-434); RBC 2.95 M/mm3 (4.00-5.60); RDW 20.6 % (11.9-15.9); WHITE BLOOD COUNT 7.1 K/mm3 (4.0-10.0)
--- NOTE | 2018-08-04 16:55 | PDOC ---
Documentation entered by Mari Neves SCRIBE, acting as scribe for Camryn Galarza MD. Camryn Galarza MD: This documentation has been prepared by the Edinson clarke Mackenzie, SCRIBE, under my direction and personally reviewed by me in its entirety. I confirm that the documentation accurately reflects all work , treatment, procedures, and medical decision making performed by me. Attending Attestation - Resident Resident Name: Danielle Jean-Baptiste - ED Attending Attestation I have performed the following: I have examined & evaluated the patient, The case was reviewed & discussed with the resident, I agree w/resident's findings & plan - HPI HPI: Patient is a 48 year old male with a significant past medical history of HTN, liver cirrhosis, ETOH abuse, polysubstance abuse, SBO, HCV, anemia, esophageal varices s/p banding, ascites, GIB, hepatic encephalopathy, and a chronic right lower extremity wound BIBA presenting to the ED with lower extremity wounds and abdominal pain. Patient states having a chronic RLE wound, he notes his mother periodically cleans the wound however it has gotten progressively worse over the past few days. Patient states having sharp lower abdominal pain for the past two days. Patient states LBM was this morning and normal. Patient also notes diffuse swelling and chills. Patient was admitted at [facility] on 07/22/18 with similar complaints and left AMA on 07/25/18. Denies fever, chest pain, SOB, palpitation, dizziness, weakness, N, V, D, bladder and bowel problems. No sick contacts or travel. No new changes in medications. Allergies: Morphine Past Medical History: As per resident note Social history: ETOH abuse Surgical history: As per resident note. Meds: as documented in EMR PMD: Dr. Jacki Morocho 08/04/18 16:36 - Physicial Exam PE: 08/04/18 16:51 Agree with the resident's HPI and PE as documented in the electronic medical record. NAD, sleeping, EOMI, PERRL, dry membranes, poor dentition, nl conjunctiva, anicteric; neck supple. lungs clear, +tachycardic, abdomen soft very protuberant and tense, diffusely tender. +scrotal edema. 4+ pitting peripheral edema bilaterally. LEONARDO x4, no focal neuro deficits. normal color for ethnicity , warm to touch. RLE with circumferential skin erosions and breakdown, with very large, irregularly bordered ulcer in distal aspect, serosanguinous drainage. - Medical Decision Making 08/04/18 16:52 See HPI for details. Prior notes reviewed, including admissions, discharges and consultations. Vital signs reviewed, +tachycardia and low grade fever. 99 temp rectally. DDX SBP, bacteremia, electrolyte/metabolic derangements, leg wounds, cellulitis , abscess, nec fasciitis, sepsis. intra abdominal infection. laboratory results and imaging reviewed, basic labs and lytes wnl, notable for anemia, no wbc ct. LFTs/lipase_elevated, with lipase to 940, highest compared to prior and approx 3X higher than ULN, [place] with pancreatitis. platelets normal today. lactic elevated, unclear if poor clearance from hepatic disease vs dehydration/ hypoperfusion vs infection/sepsis. EKG sinus tachycardia, 111 bpm, no interval abnormalities, narrow QRS, ST and T wave segments and morphology normal. Nonspecific T wave abnormalities in III only ED course -interventions: IV fluids with LR, gentle fluids given portal hypertension/very overloaded state, analgesia, IV vancomycin/zosyn for wound infection, acute on chronic with comorbidities and baseline hepatic disease/IC state, also for suspected SBP and intra abdominal infection. - bedside sono with large volume ascites, diagnostic and therapeutic tap given his fluid overloaded state and LGF with pain, need to eval for SBP and send off cultures, ascitic fluid studies, gram stain. signed consent form informed of risks and indications, pt amenable. performed and supervised resident, see separate note clear ascitic fluid removed, samples sent for cell count, body fluid chemistries , gram stain, cultures, removed total 200 ml, uncomplicated, no bleeding. - analgesia, dilaudid. morphine allergy, reaction is primarily "high blood pressure" - IV abx given - CT a/p to eval for intra abdominal complication, acute abdomen, infection. - admit for pancreatitis, acute on chronic leg wound and infection - abx covered , NPO, bowel rest, hydration, LR, pain control admit to overnight hospitalist service may also need therapeutic paracentesis by IR for large volume removal, as we performed primarily diagnostic. 08/04/18 18:55 Heart Score/ECG Review #1 ECG reviewed & interpreted by me at: 17:00 General ECG Interpretation: Sinus Rhythm, Normal Intervals Compared to previous ECG there are: Changes noted 08/04/18 17:22 EKG sinus tachycardia, 111 bpm, no interval abnormalities, narrow QRS, ST and T wave segments and morphology normal. Nonspecific T wave abnormalities in III only
[2018-08-04 17:11] LABS: INR 1.32 (0.83-1.09); PROTHROMBIN TIME (PATIENT) 15.6 SEC (9.7-13.0)
[2018-08-04 17:12] LABS: BILIRUBIN,TOTAL 3.1 mg/dL (0.2-1); BLOOD UREA NITROGEN 9.3 mg/dL (7-18); CALCIUM 7.8 mg/dL (8.5-10.1); CREATININE 0.6 mg/dL (0.55-1.3); POTASSIUM 4.9 mmol/L (3.5-5.1); TOT PROT 6.1 g/dl (6.4-8.2)
[2018-08-04 17:14] LABS: ACTIVATED PTT 29.7 SECONDS (25.2-36.5)
[2018-08-04] MEDS ORDERED: SODIUM CHLORIDE 1,000 ML IV STA (17:14)
[2018-08-04] MEDS ORDERED: HYDROmorphone HCL CARPU-JECT 2 MG/1 ML DISP.SYRIN IVPUSH ONE (17:36)
[2018-08-04] MEDS ORDERED: LACTATED RINGERS SOLUTION 1000 ML INFUS.BAG IV ONE (17:36)
[2018-08-04] MEDS ORDERED: HYDROmorphone HCl 2 MG/ML VIAL ONE (18:07)
[2018-08-04 18:23] LABS: ANISOCYTOSIS 2+
[2018-08-04 18:30] LABS: PLATELET ESTIMATE DECREASED
--- NOTE | 2018-08-04 19:56 | PDOC ---
*Physical Exam - Vital Signs Last Vital Signs Temp Pulse Resp BP Pulse Ox 99.5 F 112 H 18 116/78 99 08/04/18 17:38 08/04/18 15:26 08/04/18 15:26 08/04/18 15:26 08/04/18 15:26 ED Treatment Course - LABORATORY CBC & Chemistry Diagram: 08/04/18 16:10 08/04/18 16:10 - ADDITIONAL ORDERS Additional order review: Laboratory Results 08/04/18 08/04/18 08/04/18 17:26 16:10 16:10 PT with INR INR PTT (Actin FS) Sodium Potassium Chloride Carbon Dioxide Anion Gap BUN Creatinine Est GFR (CKD-EPI)AfAm Est GFR (CKD-EPI)NonAf Random Glucose Lactic Acid 2.5 H* Calcium Total Bilirubin AST ALT Alkaline Phosphatase Troponin I 0.02 Total Protein Albumin Lipase Stool Occult Blood Negative 08/04/18 08/04/18 16:10 16:10 PT with INR 15.60 H INR 1.32 H PTT (Actin FS) 29.7 Sodium 133 L Potassium 4.9 Chloride 105 Carbon Dioxide 19 L Anion Gap 9 BUN 9.3 Creatinine 0.6 Est GFR (CKD-EPI)AfAm 138.77 Est GFR (CKD-EPI)NonAf 119.73 Random Glucose 101 Lactic Acid Calcium 7.8 L Total Bilirubin 3.1 H AST 129 H ALT 75 H Alkaline Phosphatase 220 H Troponin I Total Protein 6.1 L Albumin 2.0 L Lipase 941 H Stool Occult Blood 08/04/18 16:10 RBC 2.95 L MCV 95.1 MCHC 34.0 RDW 20.6 H MPV 6.3 L Neutrophils % 73.8 Lymphocytes % 7.9 L D Monocytes % 17.6 H Eosinophils % 0.3 Basophils % 0.4 - RADIOLOGY Radiology Studies Ordered: Category Date Time Status ABDOMEN & PELVIS CT W/O CONTR [CT] Stat CT Scan 08/04/18 19:55 Ordered - Medications Given in the ED: ED Medications Discontinued Medications Generic Name Dose Route Start Last Admin Trade Name Freq PRN Reason Stop Dose Admin Hydromorphone HCl 2 mg 08/04/18 17:36 08/04/18 18:08 Dilaudid Injection - IVPUSH 08/04/18 17:37 2 mg ONCE ONE Administration Vancomycin HCl 1,000 mg/ 250 mls @ 166.667 mls/hr 08/04/18 16:25 08/04/18 17: 04 Dextrose IVPB 08/04/18 17:54 166.667 mls/hr ONCE ONE Administration Protocol Piperacillin Sod/Tazobactam 100 mls @ 200 mls/hr 08/04/18 16:25 08/04/18 16: 45 Sod 4.5 gm/ Dextrose IVPB 08/04/18 16:54 200 mls/hr ONCE ONE Administration Protocol Sodium Chloride 1,000 mls @ 1,000 mls/hr 08/04/18 17:14 08/04/18 17:33 Normal Saline - IV 08/04/18 18:13 Not Given ASDIR STA Lactated Ringer's 500 ml 08/04/18 17:36 08/04/18 18:06 Lactated Ringers Solution IV 08/04/18 17:37 500 ml ONCE ONE Administration Medical Decision Making - Medical Decision Making 08/04/18 19:[address] with contrast "they killed my brother with contrast". Ct reordered without contrast. 08/04/18 20:16 Patient is refusing to lay flat for the scan, belligerent with staff. Will give him haldol as it is metabolized by the kidney and not the liver and try the scan again. 08/04/18 23:52 Ct read: There is scarring in the left lower lobe. The visualized lung bases are otherwise clear Right posterior diaphragmatic hernia containing fluid Gynecomastia There is soft tissue thickening about the distal esophagus suspected to be large periesophageal varices. These are difficult to distinguish the absence of intravenous contrast Gastrohepatic and peripancreatic varices Small cirrhotic liver The spleen is not enlarged. The pancreas, right adrenal gland and kidneys are without gross abnormality allowing for lack of intravenous contrast There is a 2 cm left adrenal nodule which is nonspecific for an adenoma. Consider further evaluation with MRI to better characterize Large amount of simple ascites throughout the abdomen and pelvis as well as mesenteric edema. No intra-abdominal free air No bowel distention. Normal appendix Colonic diverticulosis, primarily sigmoid colon. The presence of ascites and mesenteric edema limits assessment for pericolonic inflammatory changes of acute diverticulitis There is a right inguinal hernia containing ascites fluid Extensive anasarca in the body wall soft tissues predominantly in the left lower chest and left abdomen as well as the pelvis and visualized upper thighs Will admit to hospitalist. 08/05/18 01:02 Admitted to hospitalist. *DC/Admit/Observation/Transfer Diagnosis at time of Disposition: Transaminitis, Pancreatitis, Abdominal distension, Lactic acidosis - Discharge Dispostion Condition at time of disposition: Stable - Referrals - Patient Instructions - Post Discharge Activity
[2018-08-04] MEDS ORDERED: HALOPERIDOL LACTATE 5 MG/ML IM ONE ×2 (20:15→20:22)
[2018-08-04 20:31] LABS: PERITONEAL FLUID LYMPHOCYTE 24 %; PERITONEAL FLUID MACROPHAGE 28 %; PERITONEAL FLUID MESOTHELIAL 8 %; PERITONEAL FLUID MONOCYTE 30 %; PERITONEAL FLUID NEUTROPHIL 10 %; PERITONEAL RBC 493 /mm3
--- NOTE | 2018-08-04 23:54 | PDOC ---
*Physical Exam - Vital Signs Last Vital Signs Temp Pulse Resp BP Pulse Ox 99.5 F 112 H 18 116/78 99 08/04/18 17:38 08/04/18 15:26 08/04/18 15:26 08/04/18 15:26 08/04/18 15:26 ED Treatment Course - LABORATORY CBC & Chemistry Diagram: 08/04/18 16:10 08/04/18 16:10 - ADDITIONAL ORDERS Additional order review: Laboratory Results 08/04/18 08/04/18 08/04/18 19:40 19:02 17:26 PT with INR INR PTT (Actin FS) Sodium Potassium Chloride Carbon Dioxide Anion Gap BUN Creatinine Est GFR (CKD-EPI)AfAm Est GFR (CKD-EPI)NonAf Random Glucose Lactic Acid 1.8 Calcium Total Bilirubin AST ALT Alkaline Phosphatase Troponin I Total Protein Albumin Lipase Peritoneal WBC 42 Peritoneal RBC 493 Periton Neutrophils 10 Periton Lymphocytes 24 Peritoneal Monocytes 30 Periton Mesothelial 8 Periton Macrophages 28 Stool Occult Blood Negative 08/04/18 08/04/18 08/04/18 16:10 16:10 16:10 PT with INR INR PTT (Actin FS) Sodium 133 L Potassium 4.9 Chloride 105 Carbon Dioxide 19 L Anion Gap 9 BUN 9.3 Creatinine 0.6 Est GFR (CKD-EPI)AfAm 138.77 Est GFR (CKD-EPI)NonAf 119.73 Random Glucose 101 Lactic Acid 2.5 H* Calcium 7.8 L Total Bilirubin 3.1 H AST 129 H ALT 75 H Alkaline Phosphatase 220 H Troponin I 0.02 Total Protein 6.1 L Albumin 2.0 L Lipase 941 H Peritoneal WBC Peritoneal RBC Periton Neutrophils Periton Lymphocytes Peritoneal Monocytes Periton Mesothelial Periton Macrophages Stool Occult Blood 08/04/18 16:10 PT with INR 15.60 H INR 1.32 H PTT (Actin FS) 29.7 Sodium Potassium Chloride Carbon Dioxide Anion Gap BUN Creatinine Est GFR (CKD-EPI)AfAm Est GFR (CKD-EPI)NonAf Random Glucose Lactic Acid Calcium Total Bilirubin AST ALT Alkaline Phosphatase Troponin I Total Protein Albumin Lipase Peritoneal WBC Peritoneal RBC Periton Neutrophils Periton Lymphocytes Peritoneal Monocytes Periton Mesothelial Periton Macrophages Stool Occult Blood 08/04/18 19:02 Gram Stain - Final Paracentesis 08/04/18 16:10 RBC 2.95 L MCV 95.1 MCHC 34.0 RDW 20.6 H MPV 6.3 L Neutrophils % 73.8 Lymphocytes % 7.9 L D Monocytes % 17.6 H Eosinophils % 0.3 Basophils % 0.4 - Medications Given in the ED: ED Medications Discontinued Medications Generic Name Dose Route Start Last Admin Trade Name Rafael PRN Reason Stop Dose Admin Hydromorphone HCl 2 mg 08/04/18 17:36 08/04/18 18:08 Dilaudid Injection - IVPUSH 08/04/18 17:37 2 mg ONCE ONE Administration Vancomycin HCl 1,000 mg/ 250 mls @ 166.667 mls/hr 08/04/18 16:25 08/04/18 17: 04 Dextrose IVPB 08/04/18 17:54 166.667 mls/hr ONCE ONE Administration Protocol Piperacillin Sod/Tazobactam 100 mls @ 200 mls/hr 08/04/18 16:25 08/04/18 16: 45 Sod 4.5 gm/ Dextrose IVPB 08/04/18 16:54 200 mls/hr ONCE ONE Administration Protocol Sodium Chloride 1,000 mls @ 1,000 mls/hr 08/04/18 17:14 08/04/18 17:33 Normal Saline - IV 08/04/18 18:13 Not Given ASDIR STA Lactated Ringer's 500 ml 08/04/18 17:36 08/04/18 18:06 Lactated Ringers Solution IV 08/04/18 17:37 500 ml ONCE ONE Administration Medical Decision Making - Medical Decision Making 08/04/18 23:54 Patient Name: JAMESON CARTER THIS IS A PRELIMINARY REPORT FROM [facility] DATE OF SERVICE: 2018-08-04 22:33:39 IMAGES: [id number] EXAM: ABDOMEN \T\ PELVIS CT W/O CONTR HISTORY: Ascites. HCV COMPARISON: None. FINDINGS: There is scarring in the left lower lobe. The visualized lung bases are otherwise clear Right posterior diaphragmatic hernia containing fluid Gynecomastia There is soft tissue thickening about the distal esophagus suspected to be large periesophageal varices. These are difficult to distinguish the absence of intravenous contrast Gastrohepatic and peripancreatic varices Small cirrhotic liver The spleen is not enlarged. The pancreas, right adrenal gland and kidneys are without gross abnormality allowing for lack of intravenous contrast There is a 2 cm left adrenal nodule which is nonspecific for an adenoma. Consider further evaluation with MRI to better characterize Large amount of simple ascites throughout the abdomen and pelvis as well as mesenteric edema. No intra-abdominal free air No bowel distention. Normal appendix Colonic diverticulosis, primarily sigmoid colon. The presence of ascites and mesenteric edema limits assessment for pericolonic inflammatory changes of acute diverticulitis There is a right inguinal hernia containing ascites fluid Extensive anasarca in the body wall soft tissues predominantly in the left lower chest and left abdomen as well as the pelvis and visualized upper thighs *DC/Admit/Observation/Transfer Diagnosis at time of Disposition: Transaminitis, Pancreatitis, Abdominal distension, Lactic acidosis - Discharge Dispostion Condition at time of disposition: Stable - Referrals Referrals: Jacki Morocho MD [Primary Care Provider] - - Patient Instructions - Post Discharge Activity
--- NOTE | 2018-08-05 00:10 | PN ---
Teaching Attending Note Name of Resident: Qian Vogel ATTENDING PHYSICIAN STATEMENT I saw and evaluated the patient. I reviewed the resident's note and discussed the case with the resident. I agree with the resident's findings and plan as documented. SUBJECTIVE: Patient is a 48 year old man with a PMH of HTN, Liver cirrhosis, Alcohol abuse, Polysubstance abuse, SBO, Hepatitis C disease, Anemia, Esophageal varices (s/p banding), Ascites, GI bleeding, Hepatic encephalopathy and Chronic right lower extremity wound who present to the ER with lower extremity wounds and abdominal pain. Chronic RLE wound has gotten progressively worse over the past few days. Patient has been having sharp lower abdominal pain for the past two days. Says that last bowel movement was this morning and it was normal. Patient also notes diffuse swelling and chills. Patient was admitted at [facility] on 07/22/18 with similar complaints and left AMA on 07/25/18. He denies fever, chest pain, SOB, palpitation, dizziness, weakness, nausea, vomiting, diarrhea or dysuria. Has no sick contacts, recent travel or recent changes in medications. No recent intake of unusual or street food. Became somnolent after getting dilaudid before CT abdomen/pelvis. OBJECTIVE: Somnolent but arousable Vital Signs Period Temp Pulse Resp BP Sys/Choi Pulse Ox Last 24 Hr 99.4 F-99.5 F 112 18 116/78 99 HEENT: +Jaundice; No eye redness or discharge, PERRLA, EOMI. Normocephalic, atraumatic. External ears are normal and hearing is grossly intact. No nasal discharge. Neck: Supple, nontender. No palpable adenopathy or thyromegaly. No JVD Chest: Good effort. Clear to auscultation and percussion. Heart: Regular. No S3, rub or murmur Abdomen: Distended, tense ascites; diffuse tenderness and no HSM. No rebound or guarding. Normal bowel sounds. Ext: Peripheral pulses intact. Leg edema and scrotal edema. Right leg skin erosions and ulcer in distal aspect with serosanguinous drainage - surrounded by erythema Skin: Warm and dry. No petechiae, rash or ecchymosis. Neuro: Somnolent but arousable. No tremors or asterexis. Oriented to person. Moves all limbs. Plantar reflexes are flexor. Gait cannot be tested for safety reasons. Sensation grossly intact in all four extremities and DTR are symmetric. Psych: Appropriate mood and affect. Home Medications Medication Instructions Recorded Albuterol Sulfate Inhaler - 2 puff IH Q4H PRN #1 inhaler 02/15/17 [Ventolin HFA Inhaler -] Pantoprazole Sodium [Protonix] 40 mg PO DAILY #30 tablet. 02/15/17 Spironolactone [Aldactone -] 75 mg PO BID #60 tablet 02/15/17 Thiamine HCl [Vitamin B1 -] 100 mg PO HS tablet 09/27/17 Nadolol 80 mg PO DAILY 07/23/18 Quetiapine Fumarate [Seroquel -] 25 mg PO BID 07/23/18 Abnormal Lab Results 08/04/18 08/04/18 08/04/18 16:10 16:10 16:10 RBC 2.95 L Hgb 9.5 L Hct 28.0 L D RDW 20.6 H MPV 6.3 L Lymphocytes % 7.9 L D Monocytes % 17.6 H PT with INR 15.60 H INR 1.32 H Sodium 133 L Carbon Dioxide 19 L Lactic Acid Calcium 7.8 L Total Bilirubin 3.1 H AST 129 H ALT 75 H Alkaline Phosphatase 220 H Total Protein 6.1 L Albumin 2.0 L Lipase 941 H 08/04/18 16:10 RBC Hgb Hct RDW MPV Lymphocytes % Monocytes % PT with INR INR Sodium Carbon Dioxide Lactic Acid 2.5 H* Calcium Total Bilirubin AST ALT Alkaline Phosphatase Total Protein Albumin Lipase ASSESSMENT AND PLAN: 1. Abdominal pain syndrome/Hepatic encephalopathy - Peritonitis or pancreatitis may explain abdominal pain. Results of ascitic fluid analysis is pending. His LFTs are higher than levels from prior admissions; lipase is significantly elevated but preliminary noncontrast CT abdomen and pelvis report "normal" pancreas with no comment about the gallbladder. Will do sepsis workup, repeat right leg wound culture, get RUQ sonogram, provide wound care, consult wound care service and trend lactic acid and LFTs. Lactic acidosis likely type B. Get urinalysis and ammonia level STAT and treat with IV Zosyn, lactulose and rifaximin and consult ID and GI. Get urine toxicology and CXR. EKG shows sinus tachycardia, normal ST-T wave segments and T wave inversion in lead III - no interval abnormalities. Consult IR for therapeutic paracentesis since we cannot confirm how much ascitic fluid that was removed by ER staff. Will continue comprehensive care of all his comorbid conditions including scrotal elevation with sling. 2. Hypoalbuminemia - Possibly due to combined effects of malnutrition and inflammation associated with comorbid chronic conditions and liver disease. Will ensure adequate dietary protein intake and also consult lean engineer. 3. Anemia - Likely chiefly due to chronic liver disease and it's sequelae. Will do basic anemia work up including serial stool guaiacs, reticulocyte count and iron studies. 4. Obesity Edema fluid may be contributing to his "obesity". Counseled on the risks associated with obesity. Will provide patient all the necessary assistance , counseling and positive reinforcement to facilitate weight loss. Consult lean engineer. 5. Alcohol abuse - Implement CIWA ativan alcohol withdrawal protocol and do neurochecks. Implement seizure, fall and aspiration precautions. Treat with thiamine and folic acid and monitor electrolytes (Ca,Mg,K,P). Counseled patient about abstaining from alcohol. Will consult medical reception specialist and refer to alcohol detox upon discharge. 6. Hypertension - Restart suitable outpatient antihypertensive drugs when clinically appropriate. Revise regimen to ensure good BP control. Nonpharmacologic measures to control hypertension like weight loss, salt restriction and exercise discussed. 7. DVT prophylaxis - Lovenox 40 mg SQ q 24 hours. 8. Advance directives - Full code
[2018-08-05] MEDS ORDERED: HYDROmorphone HCL CARPU-JECT 2 MG/1 ML DISP.SYRIN IVPUSH ONE (00:16)
[2018-08-05] MEDS ORDERED: HYDROmorphone HCl 2 MG/ML VIAL ONE ×2 (00:39→10:19)
--- NOTE | 2018-08-05 01:27 | HP ---
CHIEF COMPLAINT: abdominal pain, LE wounds PCP: HISTORY OF PRESENT ILLNESS: 48 y/o M with PMH HTN, liver cirrhosis, ETOH abuse, polysubstance abuse, SBO, HCV, anemia, esophageal varices s/p banding, ascites, GIB, hepatic encephalopathy, chronic right lower extremity wound who was brought to the ED d/ t worsening RLE wound and abdominal pain. Upon my exam, pt lethargic after receiving haldol and dilaudid. As per ED staff, pt had described sharp lower quadrant pain x 2 days, as well as worsening RLE wound. Periodically cleaned by mother. Pt also with last BM this AM, without change in characteristic. Endorsed anasarca and chills during this time. Full ROS unable to be obtained d/ t pt mental status. While in the ED, pt had paracentesis done and fluid studies were sent. Pt was seen at [facility] recently in July, when he AMA'd. At this time, he was tx for hepatic encephalopathy. Diagnostic para was done at the time which revealed (-) fluid cx. 6L were drawn. Pt was to follow at [facility] liver clinic. ER course was notable for: (1) dilaudid, haldol (2) refusal of CTAP w/contrast. w/o contrast done (3) paracentesis; no documentation of amount drawn (4) LR 500 cc (5) nevaeh tate Recent Travel: denies PAST MEDICAL HISTORY: as above PAST SURGICAL HISTORY: as above Social History: Smoking: denies Alcohol: denies Drugs: Heroin-IV and inhalation, cocaine, and benzos (from chart) Family History: would not discuss Allergies morphine Allergy (Verified 08/04/18 15:30) HOME MEDICATIONS: Home Medications Medication Instructions Recorded Albuterol Sulfate Inhaler - 2 puff IH Q4H PRN #1 inhaler 02/15/17 [Ventolin HFA Inhaler -] Pantoprazole Sodium [Protonix] 40 mg PO DAILY #30 tablet. 02/15/17 Spironolactone [Aldactone -] 75 mg PO BID #60 tablet 02/15/17 Thiamine HCl [Vitamin B1 -] 100 mg PO HS tablet 09/27/17 Nadolol 80 mg PO DAILY 07/23/18 Quetiapine Fumarate [Seroquel -] 25 mg PO BID 07/23/18 meds need to be verified with pharmacy and pt when less lethargic REVIEW OF SYSTEMS CONSTITUTIONAL: Absent: fever, chills, diaphoresis, generalized weakness, malaise, loss of appetite, weight change HEENT: Absent: rhinorrhea, nasal congestion, throat pain, throat swelling, difficulty swallowing, mouth swelling, ear pain, eye pain, visual changes CARDIOVASCULAR: Absent: chest pain, syncope, palpitations, irregular heart rate, lightheadedness , peripheral edema RESPIRATORY: Absent: cough, shortness of breath, dyspnea with exertion, orthopnea, wheezing, stridor, hemoptysis GASTROINTESTINAL: Absent: abdominal pain, abdominal distension, nausea, vomiting, diarrhea, constipation, melena, hematochezia GENITOURINARY: Absent: dysuria, frequency, urgency, hesitancy, hematuria, flank pain, genital pain MUSCULOSKELETAL: Absent: myalgia, arthralgia, joint swelling, back pain, neck pain SKIN: ulceration Absent: rash, itching, pallor HEMATOLOGIC/IMMUNOLOGIC: Absent: easy bleeding, easy bruising, lymphadenopathy, frequent infections ENDOCRINE: Absent: unexplained weight gain, unexplained weight loss, heat intolerance, cold intolerance NEUROLOGIC: Absent: headache, focal weakness or paresthesias, dizziness, unsteady gait, seizure, mental status changes, bladder or bowel incontinence PSYCHIATRIC: Absent: anxiety, depression, suicidal or homicidal ideation, hallucinations. PHYSICAL EXAMINATION Vital Signs - 24 hr 08/04/18 08/04/18 15:26 17:38 Temperature 99.4 F 99.5 F Pulse Rate 112 H Respiratory 18 Rate Blood Pressure 116/78 O2 Sat by Pulse 99 Oximetry (%) GENERAL: Lethargic. Barely arousable to sternal rub HEAD: Normal with no signs of trauma. EYES: Pupils equal, round and reactive to light, extraocular movements intact, sclera anicteric, conjunctiva clear. EARS, NOSE, THROAT: Ears normal, nares patent, oropharynx clear without exudates. Moist mucous membranes. NECK: Normal range of motion, supple LUNGS: Breath sounds equal, clear to auscultation bilaterally. No wheezes, and no crackles. No accessory muscle use. HEART: +tachycardic rate and rhythm, normal S1 and S2 without murmur, rub or gallop. ABDOMEN: Soft, +distended, nontender, no guarding, no rebound. +significant anasarca LOWER EXTREMITIES: +RLE circumferential ulcer, malodorous NEUROLOGICAL: pt too lethargic to participate Laboratory Results 08/04/18 08/04/18 08/04/18 16:10 16:10 16:10 WBC 7.1 Hgb 9.5 L Hct 28.0 L D Plt Count 147 D PT with INR 15.60 H INR 1.32 H Sodium 133 L Potassium 4.9 Carbon Dioxide 19 L BUN 9.3 Creatinine 0.6 Total Bilirubin 3.1 H AST 129 H ALT 75 H Alkaline Phosphatase 220 H Albumin 2.0 L Lipase 941 H POC Fluid pH 08/04/18 08/04/18 08/04/18 17:26 19:02 19:02 Alkaline Phosphatase POC Fluid pH Pending Fluid Glucose Pending Fluid Albumin Pending Body Fluid LDH Source Pending Fluid Amylase Pending Fluid Triglycerides Pending Peritoneal WBC 42 Peritoneal RBC 493 Periton Neutrophils 10 Periton Lymphocytes 24 Peritoneal Monocytes 30 Periton Mesothelial 8 Periton Macrophages 28 Stool Occult Blood Negative CTAP w/o contrast prelim: 1. scarring L lower lobe 2. R posterior diaphragmatic hernia w/ fluid 3. large periesophageal varices, gastrohepatic, peripancreatic varices 4. large amt simple ascites throughout abdomen and pelvis, mesenteric edema 5. colonic diverticulosis, primarily sigmoid colon 6. R inguinal hernia w/ ascites fluid 7. extensive anasarca in body wall soft tissues in L lower chest, L abdomen, pelvis, upper thighs. 8. 2cm L adrenal nodule. poss adenoma 9. does not comment on GB, pancreas WNL however study w/o contrast. EKG: +sinus tach, rate 111bpm. qtc 443ms. no st-t wave changes ASSESSMENT/PLAN: 48 y/o M with PMH HTN, liver cirrhosis, ETOH abuse, polysubstance abuse, SBO, HCV, anemia, esophageal varices s/p banding, ascites, GIB, hepatic encephalopathy, chronic right lower extremity wound who was brought to the ED d/ t worsening RLE wound and abdominal pain. #Suspected pancreatitis 2/2 alcohol, possible stones -without evidence on CTAP however w/o contrast. w/ elevated lipase, abdom pain -keep NPO -w/elev LFTs (129, 75), t bili (3.1) - f/u abd sono to check for stones, CBD dilation -tx with zosyn for now to cover in case of cholangitis -will avoid IVF at this time as w/significant ascites, anasarca -GI consult: Dr. Bird #Hepatic encephalopathy -f/u ammonia -start w/ lactulose 30gm q6h titrate to 3-4 BMs -rifaximin 550mg BID -f/u UA, utox -will avoid ativan in setting of HE -reassess mental status #Decompensated liver failure -MELD 17. 6% 3 mo mortality -hold lasix and aldactone for now resume after infection r/o #R/o SBP -f/u peritoneal fluid studies -on zosyn #RLE wound -f/u blood cx, wound cx -s/p vanc, zosyn in ED -cont'd on zosyn -wound care -ID consult: Dr. Porras #hx esophageal varices s/p banding -c/w nadolol w/ holding parameters #2cm L adrenal nodule -poss adenoma. outpt f/u #F/E/N no IVF at this time continue to follow lytes npo #PPX SCD's. hx anemia , varices #Dispo admit to tele needs close monitoring Visit type - Emergency Visit Emergency Visit: Yes ED Registration Date: 08/04/18 Care time: The patient presented to the Emergency Department on the above date and was hospitalized for further evaluation of their emergent condition. - New Patient This patient is new to me today: Yes Date on this admission: 08/05/18 - Critical Care Critical Care patient: No
[2018-08-05] MEDS ORDERED: PIPERACILLIN/TAZOB 3.375 GM 3.375 GM in DEXTROSE 5%-WATER - 50 ML IVPB SCH ×3 (01:30→12:30)
[2018-08-05] MEDS ORDERED: LACTULOSE 20 GM/30 ML UDC (FOR ORAL USE ONLY) ONE (06:51)
[2018-08-05] MEDS: LACTULOSE 20 GM/30 ML UDC (FOR ORAL USE ONLY) PO SCH ×2 (06:52→06:54)
--- NOTE | 2018-08-05 08:22 | PN ---
Physical Exam: SUBJECTIVE: Patient seen and examined at bedside. no acute events since admission. OBJECTIVE: Vital Signs Period Temp Pulse Resp BP Sys/Choi Pulse Ox Last 24 Hr 98.0 F-99.5 F 106-112 18-18 110-118/69-78 98-99 GENERAL: Lethargic. Barely arousable to sternal rub HEAD: Normal with no signs of trauma. EYES: Pupils equal, round and reactive to light, extraocular movements intact, sclera anicteric, conjunctiva clear. EARS, NOSE, THROAT: Ears normal, nares patent, oropharynx clear without exudates. Moist mucous membranes. NECK: Normal range of motion, supple LUNGS: Breath sounds equal, clear to auscultation bilaterally. No wheezes, and no crackles. No accessory muscle use. HEART: +tachycardic rate and rhythm, normal S1 and S2 without murmur, rub or gallop. ABDOMEN: Soft, +distended, nontender, no guarding, no rebound. +significant anasarca LOWER EXTREMITIES: +RLE circumferential ulcer, malodorous NEUROLOGICAL: pt too lethargic to participate Laboratory Results - last 24 hr 08/04/18 08/04/18 08/04/18 16:10 16:10 16:10 WBC 7.1 RBC 2.95 L Hgb 9.5 L Hct 28.0 L D MCV 95.1 MCH 32.3 MCHC 34.0 RDW 20.6 H Plt Count 147 D MPV 6.3 L Absolute Neuts (auto) 5.2 Neutrophils % 73.8 Lymphocytes % 7.9 L D Monocytes % 17.6 H Eosinophils % 0.3 Basophils % 0.4 Nucleated RBC % 0 Hypochromia 2+ Platelet Estimate Decreased Polychromasia 1+ Anisocytosis 2+ Microcytosis 2+ PT with INR 15.60 H INR 1.32 H PTT (Actin FS) 29.7 Sodium 133 L Potassium 4.9 Chloride 105 Carbon Dioxide 19 L Anion Gap 9 BUN 9.3 Creatinine 0.6 Est GFR (CKD-EPI)AfAm 138.77 Est GFR (CKD-EPI)NonAf 119.73 Random Glucose 101 Lactic Acid Calcium 7.8 L Total Bilirubin 3.1 H AST 129 H ALT 75 H Alkaline Phosphatase 220 H Troponin I Total Protein 6.1 L Albumin 2.0 L Lipase 941 H Peritoneal WBC Peritoneal RBC Periton Neutrophils Periton Lymphocytes Peritoneal Monocytes Periton Mesothelial Periton Macrophages Stool Occult Blood 08/04/18 08/04/18 08/04/18 16:10 16:10 17:26 WBC RBC Hgb Hct MCV MCH MCHC RDW Plt Count MPV Absolute Neuts (auto) Neutrophils % Lymphocytes % Monocytes % Eosinophils % Basophils % Nucleated RBC % Hypochromia Platelet Estimate Polychromasia Anisocytosis Microcytosis PT with INR INR PTT (Actin FS) Sodium Potassium Chloride Carbon Dioxide Anion Gap BUN Creatinine Est GFR (CKD-EPI)AfAm Est GFR (CKD-EPI)NonAf Random Glucose Lactic Acid 2.5 H* Calcium Total Bilirubin AST ALT Alkaline Phosphatase Troponin I 0.02 Total Protein Albumin Lipase Peritoneal WBC Peritoneal RBC Periton Neutrophils Periton Lymphocytes Peritoneal Monocytes Periton Mesothelial Periton Macrophages Stool Occult Blood Negative 08/04/18 08/04/18 19:02 19:40 WBC RBC Hgb Hct MCV MCH MCHC RDW Plt Count MPV Absolute Neuts (auto) Neutrophils % Lymphocytes % Monocytes % Eosinophils % Basophils % Nucleated RBC % Hypochromia Platelet Estimate Polychromasia Anisocytosis Microcytosis PT with INR INR PTT (Actin FS) Sodium Potassium Chloride Carbon Dioxide Anion Gap BUN Creatinine Est GFR (CKD-EPI)AfAm Est GFR (CKD-EPI)NonAf Random Glucose Lactic Acid 1.8 Calcium Total Bilirubin AST ALT Alkaline Phosphatase Troponin I Total Protein Albumin Lipase Peritoneal WBC 42 Peritoneal RBC 493 Periton Neutrophils 10 Periton Lymphocytes 24 Peritoneal Monocytes 30 Periton Mesothelial 8 Periton Macrophages 28 Stool Occult Blood Active Medications Generic Name Dose Route Start Last Admin Trade Name Freq PRN Reason Stop Dose Admin Piperacillin Sod/Tazobactam 50 mls @ 100 mls/hr 08/05/18 12:30 Sod 3.375 gm/ Dextrose IVPB Q8H-IV KENDRICK Protocol Piperacillin Sod/Tazobactam 50 mls @ 100 mls/hr 08/05/18 08:00 Sod 3.375 gm/ Dextrose IVPB 08/06/18 00:29 Q8H KENDRICK Lactulose 30 gm 08/05/18 01:30 08/05/18 06:54 Cephulac (Oral Use) PO Not Given Q6HPO KENDRICK Nadolol 80 mg 08/05/18 10:00 Corgard - PO DAILY KENDRICK Pantoprazole Sodium 40 mg 08/05/18 10:00 Protonix - PO DAILY [facility] Rifaximin 550 mg 08/05/18 01:30 Xifaxan - PO BID KENDRICK CTAP w/o contrast prelim: 1. scarring L lower lobe 2. R posterior diaphragmatic hernia w/ fluid 3. large periesophageal varices, gastrohepatic, peripancreatic varices 4. large amt simple ascites throughout abdomen and pelvis, mesenteric edema 5. colonic diverticulosis, primarily sigmoid colon 6. R inguinal hernia w/ ascites fluid 7. extensive anasarca in body wall soft tissues in L lower chest, L abdomen, pelvis, upper thighs. 8. 2cm L adrenal nodule. poss adenoma 9. does not comment on GB, pancreas WNL however study w/o contrast. EKG: +sinus tach, rate 111bpm. qtc 443ms. no st-t wave changes ASSESSMENT/PLAN: 48 y/o M with PMH HTN, liver cirrhosis, ETOH abuse, polysubstance abuse, SBO, HCV, anemia, esophageal varices s/p banding, ascites, GIB, hepatic encephalopathy, chronic right lower extremity wound who was brought to the ED d/ t worsening RLE wound and abdominal pain. #Suspected pancreatitis 2/2 alcohol, possible stones -without evidence on CTAP however w/o contrast. w/ elevated lipase, abdom pain -keep NPO -w/elev LFTs (129, 75), t bili (3.1) - f/u abd sono to check for stones, CBD dilation -tx with zosyn for now to cover in case of cholangitis -will avoid IVF at this time as w/significant ascites, anasarca -GI consult: Dr. Bird #Hepatic encephalopathy -f/u ammonia -start w/ lactulose 30gm q6h titrate to 3-4 BMs -rifaximin 550mg BID -f/u UA, utox -will avoid ativan in setting of HE -reassess mental status #Decompensated liver failure -MELD 17. 6% 3 mo mortality -hold lasix and aldactone for now resume after infection r/o #R/o SBP -f/u peritoneal fluid studies -on zosyn #RLE wound -f/u blood cx, wound cx -s/p vanc, zosyn in ED -cont'd on zosyn -wound care -ID consult: Dr. Porras #hx esophageal varices s/p banding -c/w nadolol w/ holding parameters #2cm L adrenal nodule -poss adenoma. outpt f/u #F/E/N no IVF at this time continue to follow lytes npo #PPX SCD's. hx anemia , varices #Dispo admit to tele needs close monitoring
[2018-08-05] MEDS ORDERED: HYDROmorphone HCl 2 MG/ML VIAL IVPB PRN (09:45)
[2018-08-05] MEDS ORDERED: NADOLOL 40 MG TABLET (FP) PO SCH (10:00)
[2018-08-05] MEDS ORDERED: PANTOPRAZOLE 40 MG TABLET (FP) PO SCH (10:00)
[2018-08-05 10:32] VITALS: BP 126/64; PULSE 111; TEMP 98.3
[2018-08-05] MEDS: RIFAXIMIN 550 MG TABLET (UD) PO SCH ×2 (10:32→10:36)
--- NOTE | 2018-08-05 11:53 | DS ---
Physical Exam: SUBJECTIVE: Patient seen and examined at bedside this AM. no acute events overnight. pt c/o pain. later in the afternoon pt eloped OBJECTIVE: Vital Signs Period Temp Pulse Resp BP Sys/Choi Pulse Ox Last 24 Hr 98.0 F-99.5 F 106-112 18-18 110-126/64-78 98-99 PHYSICAL EXAM GENERAL: AOX3 HEAD: Normal with no signs of trauma. EYES: Pupils equal, round and reactive to light, extraocular movements intact, sclera anicteric, conjunctiva clear. EARS, NOSE, THROAT: nares patent, oropharynx clear without exudates. Moist mucous membranes. NECK: Normal range of motion, supple LUNGS: Breath sounds equal, clear to auscultation bilaterally. No wheezes, and no crackles. No accessory muscle use. HEART: +tachycardic rate and rhythm, normal S1 and S2 without murmur, rub or gallop. ABDOMEN: Soft, +distended, nontender, no guarding, no rebound. +significant anasarca LOWER EXTREMITIES: +RLE circumferential ulcer, malodorous NEUROLOGICAL: pt too lethargic to participate LABS Laboratory Results - last 24 hr 08/04/18 08/04/18 08/04/18 16:10 16:10 16:10 WBC 7.1 RBC 2.95 L Hgb 9.5 L Hct 28.0 L D MCV 95.1 MCH 32.3 MCHC 34.0 RDW 20.6 H Plt Count 147 D MPV 6.3 L Absolute Neuts (auto) 5.2 Neutrophils % 73.8 Lymphocytes % 7.9 L D Monocytes % 17.6 H Eosinophils % 0.3 Basophils % 0.4 Nucleated RBC % 0 Hypochromia 2+ Platelet Estimate Decreased Polychromasia 1+ Anisocytosis 2+ Microcytosis 2+ PT with INR 15.60 H INR 1.32 H PTT (Actin FS) 29.7 Sodium 133 L Potassium 4.9 Chloride 105 Carbon Dioxide 19 L Anion Gap 9 BUN 9.3 Creatinine 0.6 Est GFR (CKD-EPI)AfAm 138.77 Est GFR (CKD-EPI)NonAf 119.73 Random Glucose 101 Lactic Acid Calcium 7.8 L Total Bilirubin 3.1 H AST 129 H ALT 75 H Alkaline Phosphatase 220 H Troponin I Total Protein 6.1 L Albumin 2.0 L Lipase 941 H Peritoneal WBC Peritoneal RBC Periton Neutrophils Periton Lymphocytes Peritoneal Monocytes Periton Mesothelial Periton Macrophages Stool Occult Blood 08/04/18 08/04/18 08/04/18 16:10 16:10 17:26 WBC RBC Hgb Hct MCV MCH MCHC RDW Plt Count MPV Absolute Neuts (auto) Neutrophils % Lymphocytes % Monocytes % Eosinophils % Basophils % Nucleated RBC % Hypochromia Platelet Estimate Polychromasia Anisocytosis Microcytosis PT with INR INR PTT (Actin FS) Sodium Potassium Chloride Carbon Dioxide Anion Gap BUN Creatinine Est GFR (CKD-EPI)AfAm Est GFR (CKD-EPI)NonAf Random Glucose Lactic Acid 2.5 H* Calcium Total Bilirubin AST ALT Alkaline Phosphatase Troponin I 0.02 Total Protein Albumin Lipase Peritoneal WBC Peritoneal RBC Periton Neutrophils Periton Lymphocytes Peritoneal Monocytes Periton Mesothelial Periton Macrophages Stool Occult Blood Negative 08/04/18 08/04/18 19:02 19:40 WBC RBC Hgb Hct MCV MCH MCHC RDW Plt Count MPV Absolute Neuts (auto) Neutrophils % Lymphocytes % Monocytes % Eosinophils % Basophils % Nucleated RBC % Hypochromia Platelet Estimate Polychromasia Anisocytosis Microcytosis PT with INR INR PTT (Actin FS) Sodium Potassium Chloride Carbon Dioxide Anion Gap BUN Creatinine Est GFR (CKD-EPI)AfAm Est GFR (CKD-EPI)NonAf Random Glucose Lactic Acid 1.8 Calcium Total Bilirubin AST ALT Alkaline Phosphatase Troponin I Total Protein Albumin Lipase Peritoneal WBC 42 Peritoneal RBC 493 Periton Neutrophils 10 Periton Lymphocytes 24 Peritoneal Monocytes 30 Periton Mesothelial 8 Periton Macrophages 28 Stool Occult Blood CTAP w/o contrast prelim: 1. scarring L lower lobe 2. R posterior diaphragmatic hernia w/ fluid 3. large periesophageal varices, gastrohepatic, peripancreatic varices 4. large amt simple ascites throughout abdomen and pelvis, mesenteric edema 5. colonic diverticulosis, primarily sigmoid colon 6. R inguinal hernia w/ ascites fluid 7. extensive anasarca in body wall soft tissues in L lower chest, L abdomen, pelvis, upper thighs. 8. 2cm L adrenal nodule. poss adenoma 9. does not comment on GB, pancreas WNL however study w/o contrast. EKG: +sinus tach, rate 111bpm. qtc 443ms. no st-t wave changes HOSPITAL COURSE: Date of Admission:08/04/18 Date of Discharge: 08/05/18 48 y/o M with PMH HTN, liver cirrhosis, ETOH abuse, polysubstance abuse, SBO, HCV, anemia, esophageal varices s/p banding, ascites, GIB, hepatic encephalopathy, chronic right lower extremity wound who was brought to the ED d/ t worsening RLE wound and abdominal pain. Admitted for Suspected pancreatitis 2/2 alcohol, possible stones and worsening RLE wound/possible sepsis along w/R/o SBP - lipase 900s, afebrile no white count , tachycardia, abdominal ascites. +lactic acid, now resolved w/ abx and IVF. -s/p vanc, zosyn in ED -f/u blood cx, wound cx -f/u peritoneal fluid studies, pt was tapped in ED -without evidence on CTAP however w/o contrast. w/ elevated lipase, abdom pain -pt made NPO -w/elev LFTs (129, 75), t bili (3.1) - abd sono ordered to check for stones, CBD dilation, report not back -s/p zosyn for to cover in case of cholangitis -avoided any more IVF at this time as w/significant ascites, anasarca -GI consult: Dr. Bird -wound care -ID consult: Dr. Porras #Hepatic encephalopathy -f/u ammonia -started w/ lactulose 30gm q6h titrate to 3-4 BMs -rifaximin 550mg BID was given #Decompensated liver failure -MELD 17. 6% 3 mo mortality -held lasix and aldactone in setting of possible sepsis #hx esophageal varices s/p banding -c/w nadolol w/ holding parameters #2cm L adrenal nodule -poss adenoma. outpt f/u pt was seen by me in the AM but then subsequently eloped in the afternoon Minutes to complete discharge: 37 Discharge Summary Reason For Visit: ELEVATED TRANSAMINASE MEASUREMENT/ABDOMINAL DISTEN Condition: Guarded - Instructions Disposition: ELOPED - Home Medications Comprehensive Discharge Medication List: Ambulatory Orders Albuterol Sulfate Inhaler - [Ventolin HFA Inhaler -] 2 puff IH Q4H PRN #1 inhaler 02/15/17 Pantoprazole Sodium [Protonix] 40 mg PO DAILY #30 tablet. 02/15/17 Spironolactone [Aldactone -] 75 mg PO BID #60 tablet 02/15/17 Thiamine HCl [Vitamin B1 -] 100 mg PO HS tablet 09/27/17 Nadolol 80 mg PO DAILY 06/10/19 Quetiapine Fumarate [Seroquel -] 25 mg PO BID 07/23/18 This patient is new to me today: Yes Date on this admission: 08/05/18 Emergency Visit: Yes ED Registration Date: 08/04/18 Care time: The patient presented to the Emergency Department on the above date and was hospitalized for further evaluation of their emergent condition. Critical Care patient: No - Discharge Referral Referred to [facility] Med P.C.: No
--- NOTE | 2018-08-05 13:11 | EKG ---
Test Reason : Blood Pressure : / mmHG Vent. Rate : 111 BPM Atrial Rate : 111 BPM P-R Int : 112 ms QRS Dur : 082 ms QT Int : 326 ms P-R-T Axes : 046 002 018 degrees QTc Int : 443 ms SINUS TACHYCARDIA WHEN COMPARED WITH ECG OF 22-JUL-2018 22:42, NO SIGNIFICANT CHANGE WAS FOUND Confirmed by CARLOS CALLES MD ([id number]) on 08/05/2018 1:11:04 PM Referred By: Confirmed By:CARLOS CALLES MD
--- NOTE | 2018-08-05 16:45 | PN ---
Teaching Attending Note Name of Resident: Wilian Love ATTENDING PHYSICIAN STATEMENT I saw and evaluated the patient. I reviewed the resident's note and discussed the case with the resident. I agree with the resident's findings and plan as documented. SUBJECTIVE: Patient is c/o having abdominal pain. Asking for continuous pain medication. OBJECTIVE: Vital Signs Temperature 98.3 F 08/05/18 10:29 Pulse Rate 111 H 08/05/18 10:29 Respiratory Rate 18 08/05/18 10:29 Blood Pressure 126/64 08/05/18 10:29 O2 Sat by Pulse Oximetry (%) 98 08/05/18 10:29 Initial Vital Signs Temp Pulse Resp BP Pulse Ox 99.4 F 112 H 18 116/78 99 08/04/18 15:26 08/04/18 15:26 08/04/18 15:26 08/04/18 15:26 08/04/18 15:26 GENERAL: The patient is awake, alert, and fully oriented, in no acute distress. HEAD: Normal with no signs of trauma. EYES: PERRL, extraocular movements intact, sclera anicteric, conjunctiva clear. ENT: Ears normal, oropharynx clear without exudates, moist mucous membranes. NECK: Trachea midline, full range of motion, supple. LUNGS: Breath sounds equal, clear to auscultation bilaterally, no wheezes, no crackles, no accessory muscle use. HEART: tachycardic rate of 111, S1, S2 without murmur, rub or gallop. ABDOMEN: soft, distended, normoactive bowel sounds, no guarding, no rebound, positive for hepatomegaly. positive for anasarca EXTREMITIES: 2+ pulses, +RLE circumferential ulcer, malodorous NEUROLOGICAL: Cranial nerves II through XII grossly intact. Normal speech, gait not observed. PSYCH: Normal mood. SKIN: Warm, dry, CBCD WBC 7.1 K/mm3 (4.0-10.0) 08/04/18 16:10 RBC 2.95 M/mm3 (4.00-5.60) L 08/04/18 16:10 Hgb 9.5 GM/dL (11.7-16.9) L 08/04/18 16:10 Hct 28.0 % (35.4-49) L D 08/04/18 16:10 MCV 95.1 fl (80-96) 08/04/18 16:10 MCHC 34.0 g/dl (32.0-35.9) 08/04/18 16:10 RDW 20.6 % (11.9-15.9) H 08/04/18 16:10 Plt Count 147 K/MM3 (134-434) D 08/04/18 16:10 MPV 6.3 fl (7.5-11.1) L 08/04/18 16:10 CMP Sodium 133 mmol/L (136-145) L 08/04/18 16:10 Potassium 4.9 mmol/L (3.5-5.1) 08/04/18 16:10 Chloride 105 mmol/L (98-107) 08/04/18 16:10 Carbon Dioxide 19 mmol/L (21-32) L 08/04/18 16:10 Anion Gap 9 MMOL/L (8-16) 08/04/18 16:10 BUN 9.3 mg/dL (7-18) 08/04/18 16:10 Creatinine 0.6 mg/dL (0.55-1.3) 08/04/18 16:10 Random Glucose 101 mg/dL (74-106) 08/04/18 16:10 Calcium 7.8 mg/dL (8.5-10.1) L 08/04/18 16:10 Total Bilirubin 3.1 mg/dL (0.2-1) H 08/04/18 16:10 AST 129 U/L (15-37) H 08/04/18 16:10 ALT 75 U/L (13-61) H 08/04/18 16:10 Alkaline Phosphatase 220 U/L (45-117) H 08/04/18 16:10 Total Protein 6.1 g/dl (6.4-8.2) L 08/04/18 16:10 Albumin 2.0 g/dl (3.4-5.0) L 08/04/18 16:10 CARDIAC ENZYMES Troponin I 0.02 ng/ml (0.00-0.05) 08/04/18 16:10 Home Medications Medication Instructions Recorded Albuterol Sulfate Inhaler - 2 puff IH Q4H PRN #1 inhaler 02/15/17 [Ventolin HFA Inhaler -] Pantoprazole Sodium [Protonix] 40 mg PO DAILY #30 tablet. 02/15/17 Spironolactone [Aldactone -] 75 mg PO BID #60 tablet 02/15/17 Thiamine HCl [Vitamin B1 -] 100 mg PO HS tablet 09/27/17 Nadolol 80 mg PO DAILY 07/23/18 Quetiapine Fumarate [Seroquel -] 25 mg PO BID 07/23/18 Microbiology 08/04/18 16:04 Blood - Peripheral Venous Blood Culture - Preliminary NO GROWTH OBTAINED AFTER 24 HOURS, INCUBATION TO CONTINUE FOR 4 DAYS. 08/04/18 19:02 Peritoneal Fluid Gram Stain - Final 08/04/18 16:13 Leg - Right Lower Gram Stain - Final 08/04/18 16:10 Blood - Peripheral Venous Blood Culture - Preliminary Pending Organism 08/04/18 19:02 Paracentesis Gram Stain - Final EKG: +sinus tach, rate 111bpm. qtc 443ms. no st-t wave changes ASSESSMENT AND PLAN: Patient is a 48yo male with PMHx HTN, liver cirrhosis, ETOH abuse, polysubstance abuse, SBO, HCV, anemia, esophageal varices s/p banding, ascites, GIB, hepatic encephalopathy, chronic right lower extremity wound who was brought to the ED with worsening RLE wound and abdominal pain. #Suspected pancreatitis due to alcohol dependency #ANasarca #Hepatic encephalopathy # hepatic liver cirrhosis on lactulose 30gm q6h and rifaximin 550mg BID # SBP coverage with Zosyn GI consult: Dr. iBrd f/u peritoneal fluid studies #RLE wound f/u blood cx, wound cx, s/p vanc, zosyn in ED, wound care -ID consult: Dr. Porras #hx esophageal varices s/p banding continue nadolol w/ holding parameters #2cm L adrenal nodule poss adenoma. outpt f/u npo #PPX: SCD's. hx anemia , varices patient elopped from the ED.
[2018-08-06 14:13] LABS: BODY FLUID ALBUMIN <0.2 g/dL (.)
== END 2018-08-05 11:47 | disposition left against medical advice (07) | DRG 282 ==
LOC: JER 15:21 → JERBED 19:03
PROVIDERS: ADMIT Internal Medicine; ATTEND Internal Medicine
DX: K85.20 Alcohol induced acute pancreatitis without necrosis or infection (principal); K72.90 Hepatic failure, unspecified without coma; K74.60 Unspecified cirrhosis of liver; I10 Essential (primary) hypertension; R00.0 Tachycardia, unspecified; R18.8 Other ascites; E87.2 Acidosis; E46 Unspecified protein-calorie malnutrition; R17 Unspecified jaundice; E88.09 Other disorders of plasma-protein metabolism, not elsewhere classified; B19.20 Unspecified viral hepatitis C without hepatic coma; F10.10 Alcohol abuse, uncomplicated; D64.9 Anemia, unspecified; R60.1 Generalized edema
CPT/HCPCS: 36415; 74176-TC; 76705-TC; 80053; 82042; 82150; 82272; 82945; 83605; 83615; 83690; 83986; 84478; 84484; 85025; 85610; 85730; 87040; 87070; 87075; 87077; 87186; 87205; 89051; 93005; 93010; 99285-25

== ENCOUNTER 2018-10-17 11:55 | Emergency (ER) | payer OTHER ==
[2018-10-17 12:08] VITALS: BP 132/71; PULSE 89; TEMP 98.5; BMI 30.1
--- NOTE | 2018-10-17 13:43 | PDOC ---
History of Present Illness - General Chief Complaint: Pain, Acute Stated Complaint: WOUND CARE Time Seen by Provider: 10/17/18 13:05 - History of Present Illness Initial Comments: Wilmer Duarte is a 48yo man with a PMH of HTN, alcohol abuse, polysubstance abuse, hepC, Zak class C cirrhosis with ascites, h/o hepatic encephgalopathy, esophageal varices s/p banding (2018), anemia, chronic RLE wound who presents to the ED reporting severe pressure in his abdomen as well as RLE pain. Mr Duarte reports that his symptoms have been unchanged for weeks. He is most concerned about his right leg but states that his leg always hurts; his mother helps change his dressings at times, but it is unclear how often the dressings are changed. Mr Duarte also reports that he needs to have his ascites drained. He reports that he was at [facility] about a month or two ago and had the ascites drained at that time, but he reports that he has never seen GI as an outpatient. He says that he was never told to see anyone outside of the hospital, and he does not recall ever having seen a specialist while in the hospital. He states that he has a diuretic at home, though he is unclear how often he takes it, and he reports not having any other medications at home. He says that he came to the hospital today due to persistent feeling of abdominal pressure and discomfort as well as RLE pain. He additionally says that he ran out of dressing supplies for his leg wounds. Past History - Past Medical History Allergies/Adverse Reactions: Allergies Allergy/AdvReac Type Severity Reaction Status Date / Time morphine Allergy Verified 10/17/18 12:08 Home Medications: Ambulatory Orders Albuterol Sulfate Inhaler - [Ventolin HFA Inhaler -] 2 puff IH Q4H PRN #1 inhaler 02/15/17 Pantoprazole Sodium [Protonix] 40 mg PO DAILY #30 tablet. 02/15/17 Spironolactone [Aldactone -] 75 mg PO BID #60 tablet 02/15/17 Thiamine HCl [Vitamin B1 -] 100 mg PO HS tablet 09/27/17 Nadolol 80 mg PO DAILY 07/23/18 Quetiapine Fumarate [Seroquel -] 25 mg PO BID 07/23/18 Anemia: No Asthma: No Cancer: No Cardiac Disorders: No CVA: No COPD: No CHF: No DVT: No Dementia: No Diabetes: No Dialysis: No GI Disorders: Yes (GI BLEED, SBO) Disorders: No HTN: Yes Hypercholesterolemia: No Liver Disease: Yes (HEPATITS C,cirrhosis) Psychiatric Problems: Yes (anxiety) Seizures: No Thyroid Disease: No - Surgical History Abdominal Surgery: Yes (GI BLEED/HERNIA, Partial SBO resection) Appendectomy: No Cardiac Surgery: No Cholecystectomy: No Lung Surgery: No Neurologic Surgery: Yes Orthopedic Surgery: No - Immunization History Immunization Up to Date: Yes - Suicide/Smoking/Psychosocial Hx Smoking Status: Yes Smoking History: Never smoked Have you smoked in the past 12 months: No Number of Cigarettes Smoked Daily: 3 If you are a former smoker, when did you quit?: 10yrs 'Breaking Loose' booklet given: 09/24/17 Hx Alcohol Use: Yes (DAILY) Drug/Substance Use Hx: No Substance Use Type: Alcohol, Heroin Hx Substance Use Treatment: (unobtainable) Review of Systems - Review of Systems Comments:: General: No fevers, no chills, no weight or appetite change, + malaise HEENT: No changes in vision, no changes in hearing, no congestion, no sore throat CV: No chest pain, no palpitations, no LE edema Pulm: + SOB, no cough, no wheezing GI: See HPI : No frequency, no urgency, no dysuria Musc: No back pain, no joint swelling, no recent injury Skin: Chronic RLE wounds, see HPI Endo: No excessive thirst, no heat/cold intolerance Heme: No unusual bruising or bleeding, no swollen glands Neuro: No syncope, no numbness/tingling, no focal weakness Vasc: No claudication Psych: No recent change in mood, no SI or HI *Physical Exam - Vital Signs Last Vital Signs Temp Pulse Resp BP Pulse Ox 98.5 F 89 16 132/71 97 10/17/18 12:05 10/17/18 12:05 10/17/18 12:05 10/17/18 12:05 10/17/18 12:05 - Physical Exam Comments: General: Comfortable, no acute distress HEENT: PERRL, EOMI, MMM, voice normal, normal neck ROM, no LAD Cards: RRR, no murmur appreciated Pulm: Comfortable on room air, clear to auscultation bilaterally Abd: Soft, discomfort w/ palpation. Grossly distended. : Markedly edematous, enlarged scrotum Ext: 3+ BLE edema w/ numerous circumferential RLE ulcerations on distal extremity. Wounds with saturated ABD pads and kerlix dressing; serous fluid, no malodor or purulence appreciated. Skin macerated under bandaging. Vasc: Extremities WWP. Neuro: A&Ox3, CN grossly intact, normal speech, motor/sensory grossly intact and symmetric Psych: Mood appropriate to situation ED Treatment Course - LABORATORY CBC & Chemistry Diagram: 10/17/18 14:21 10/17/18 14:21 - RADIOLOGY Radiology Studies Ordered: Category Date Time Status CHEST PA & LAT [RAD] Stat Radiology 10/17/18 13:34 Ordered Medical Decision Making - Medical Decision Making 10/17/18 13:42 Wilmer Duarte is a 48yo man with a PMH of HTN, alcohol abuse, polysubstance abuse, hepC, Zak class C cirrhosis with ascites, h/o hepatic encephgalopathy, esophageal varices s/p banding (2018), anemia, chronic RLE wound who presents to the ED reporting severe pressure in his abdomen as well as RLE pain. He indicates that his symptoms are chronic and is unable to state how or whether they are worse today. - Significant ascites. Needs paracentisis, but no fever or abdominal pain on exam suggestive of SBP. Ascites most likely due to medication and follow up noncompliance - CBC, CMP, BNP, ammonia - CXR, EKG, UA - May need additional imaging if labs indicate concerning abnormalities or are suggestive of infection 10/17/18 15:30 - Labs completed, reviewed. No significant changes from baseline - CXR unremarkable - Will request ED US team to complete ultrasound 10/17/18 15:48 - Abdominal POCUS completed by Dr Mchugh and Dr . Shows large volume ascites, significantly shrunken liver, gallbladder wall thickening w/o stones. Pt uncomfortable during US; concerning for possible SBP - Coags ordered for possible tap - Ceftriaxone 1g IV - Oxycodone for pain 10/17/18 17:23 - Patient upset about receiving 5mg oxycodone as he states he always takes 10mg at home. Explained to pt that if his pain is not controlled, additional medication may be ordered. - Patient also upset that he did not feel his wound was properly dressed. Requested xeroform, ABD, kerlix. Pt's mother had wrapped wound with 4x4 gauze, covered entirely by plastic tape with tape stuck directly to the wounds. Attempted to remove some tape, explaining to pt that skin was macerated due to previously saturated dressing and should dry prior to re-wrapping to prevent additional skin breakdown. Patient would not allow any tape to be removed. - Patient now stating that he is going to a different hospital as we "want him to get worse" here. Attempted to explain to Mr Duarte that he needs appropriate wound care, removal of ascites, and may have SBP. Advised regarding possible complications of SBP including sepsis and . Discussed at length. Mr Duarte continues to state that he does not wish to stay at [facility] and will go elsewhere as his wound was not wrapped to his satisfaction. - Will AMA, but will complete ceftriaxone prior per pt request 10/17/18 18:01 - Went to remove IV and have patient complete AMA paperwork; patient gone from his bed. Nearby patients reported that he left ~10 minutes ago. - IV examined. Tubing was apparently disconnected but IV catheter not located - Attempt made by nurse Maame to call the patient's mother, who hung up on her after answering the phone. Voicemail left - Will contact the police to return patient to the ED Discussed with Dr Bey. Felicia Greer PGY2 *DC/Admit/Observation/Transfer Diagnosis at time of Disposition: Ascites due to alcoholic cirrhosis, Scrotal swelling Edema Qualifiers: Edema type: unspecified Qualified Code(s): R60.9 - Edema, unspecified Venous stasis ulcer Qualifiers: Venous stasis ulcer site: other part of lower leg Varicose vein presence: unspecified whether present Laterality: right Non-pressure ulcer stage: unspecified non-pressure ulcer stage Qualified Code(s): I83.018 - Varicose veins of right lower extremity with ulcer other part of lower leg - Discharge Dispostion Disposition: AGAINST MEDICAL ADVICE - Referrals Referrals: Jacki Morocho MD [Primary Care Provider] - Dustin Fletcher DO [Staff Physician] - - Patient Instructions Printed Discharge Instructions: DI for Ascites, DI for Cirrhosis Additional Instructions: Discharge Instructions: You were seen in the emergency department for ascites, leg swelling, and chronic leg wounds. Your blood tests were not significantly changed from your baseline. You declined additional treatment in the ED or hospital. Please make an appointment to follow up with a gastroenterology (GI) specialist as soon as possible. You have been given contact information for Dr Fletcher - the GI doctor that you saw previously in the hospital. Try to call and make an appointment within the next 1-2 days or as soon as possible. Seek immediate care for any severe or worsening abdominal pain, fever, shivering , yellowing of your skin, coughing or vomiting blood, inability to eat or drink , or any other medical emergency. - Post Discharge Activity
[2018-10-17 14:44] LABS: BASO % 0.7 % (0-2.0); EOS % 2.2 % (0-4.5); HEMATOCRIT 25.4 % (35.4-49); HEMOGLOBIN 8.4 GM/dL (11.7-16.9); LYMPH % 11.6 % (8-40); MCH 29.3 pg (25.7-33.7); MCHC 32.9 g/dl (32.0-35.9); MEAN CELL VOLUME 89.1 fl (80-96); MEAN PLT VOLUME 6.9 fl (7.5-11.1); MONO % 13.9 % (3.8-10.2); NEUT % 71.6 % (42.8-82.8); PLATELET COUNT 86 K/MM3 (134-434); RBC 2.86 M/mm3 (4.00-5.60); RDW 20.5 % (11.9-15.9); WHITE BLOOD COUNT 3.7 K/mm3 (4.0-10.0)
[2018-10-17 15:10] LABS: N-TERMINAL BNP 74.4 pg/ml (5-125); PHOSPHOROUS 2.4 mg/dL (2.5-4.9)
[2018-10-17 15:12] LABS: ALBUMIN 2.8 g/dl (3.4-5.0); BILIRUBIN,TOTAL 3.6 mg/dL (0.2-1); BLOOD UREA NITROGEN 8.7 mg/dL (7-18); CALCIUM 8.1 mg/dL (8.5-10.1); CREATININE 0.6 mg/dL (0.55-1.3); MAGNESIUM 2.2 mg/dL (1.8-2.4); POTASSIUM 4.1 mmol/L (3.5-5.1)
[2018-10-17 15:29] LABS: ANISOCYTOSIS 1+; MACROCYTOSIS 1+; OVALOCYTE 1+; PLATELET ESTIMATE DECREASED
[2018-10-17] MEDS ORDERED: CEFTRIAXONE 1,000 MG in DEXTROSE 5%-WATER - 50 ML IVPB ONE (15:43)
[2018-10-17] MEDS ORDERED: oxyCODONE HCL 5 MG TABLET PO ONE (15:43)
[2018-10-17] MEDS ORDERED: oxyCODONE HCL 5 MG TABLET ONE (16:17)
[2018-10-17] MEDS ORDERED: CEFTRIAXONE 1 GM/50 ML BAG ONE (16:17)
[2018-10-17 17:06] LABS: EPI CELLS 5.3 /HPF (0-5/HPF); HYALINE CASTS 22 /lpf (0-8); URINE APPEARANCE Error; URINE BACTERIA 40.8 /hpf (NEGATIVE); URINE BILIRUBIN 2+ (NEGATIVE); URINE COLOR DK YELLOW; URINE GLUCOSE (UA) NEGATIVE (NEGATIVE); URINE KETONE TRACE (NEGATIVE); URINE LEUK ESTERASE TRACE (NEGATIVE); URINE NITRITE POSITIVE (NEGATIVE); URINE PROTEIN 1+ (NEGATIVE); URINE RBC 6 /hpf (0-4); URINE WBC 3 /hpf (0-5)
--- NOTE | 2018-10-17 17:25 | PDOC ---
Documentation entered by Denny Gandhi SCRIBE, acting as scribe for Devon Bey MD. Devon Bey MD: This documentation has been prepared by the Hiram clarke Daniel, SCRIBE, under my direction and personally reviewed by me in its entirety. I confirm that the documentation accurately reflects all work, treatment, procedures, and medical decision making performed by me. Attending Attestation - Resident Resident Name: Felicia Greer - ED Attending Attestation I have performed the following: I have examined & evaluated the patient, The case was reviewed & discussed with the resident, I agree w/resident's findings & plan, Exceptions are as noted - HPI HPI: 10/17/18 14:59 The patient is a 48 year old male with a past medical history of hepatitis C, polysubstance abuse, chronic right lower extremity wounds, Zak class C cirrhosis with ascites, hepatic encephalopathy, esophageal varices (s/p banding 2018), and anemia here today for evaluation of abdominal pressure and right lower extremity pain. The patient reports that he has had abdominal pressure for weeks and reports that he needs his ascites drained, stating that is was last drained at [facility] a month or two ago. He also notes right lower extremity pain and wounds which he states are chronic. Allergies: morphine PCP: Jacki Morocho - Physicial Exam PE: 10/17/18 14:59 agree with resident exam - Medical Decision Making 10/17/18 17:17 48yo M hx liver failure, chronic LE wounds presents to the ED accompanied by his mom for abd pain and pain to LE wounds for weeks With regards to abd pain, no abd ttp, but large ascites on bedside sono so can not r/o SBP Pt refusing diagnostic para in ED w/o more pain medications Pt awake, alert, oriented, and in my clinical judgement, has the capacity to make decision pt given ceftriaxone empirically and also home pain medications Will reattempt para Labs thus far with elevated bilirubin consistent with progressive liver failure Anticipate admission pending remaining w/u 10/17/18 18:00 Pt requesting to leave AMA WHile Dr. Greer prepared AMA paperwork, pt eloped with IV while ceftriaxone was running Listed number called, pt's mother picked up and hung up the phone on RN [employer] was called and notified of elopement with IV
[2018-10-17 19:13] LABS: URINE CRYSTALS MANY /hpf
--- NOTE | 2018-10-17 21:18 | EKG ---
Test Reason : Blood Pressure : / mmHG Vent. Rate : 083 BPM Atrial Rate : 083 BPM P-R Int : 124 ms QRS Dur : 086 ms QT Int : 422 ms P-R-T Axes : 029 -03 016 degrees QTc Int : 495 ms SINUS RHYTHM WITH PREMATURE ATRIAL COMPLEXES PROLONGED QT ABNORMAL ECG WHEN COMPARED WITH ECG OF 04-AUG-2018 17:01, PREMATURE ATRIAL COMPLEXES ARE NOW PRESENT Confirmed by TAMIE LLOYD, TOÑO ([id number]) on 10/17/2018 9:18:23 PM Referred By: Confirmed By:TOÑO WILLETT MD
== END 2018-10-17 20:03 | disposition left against medical advice (07) ==
LOC: JER 11:55
DX: K70.31 Alcoholic cirrhosis of liver with ascites (principal); I83.018 Varicose veins of right lower extremity with ulcer other part of lower leg; L97.811 Non-pressure chronic ulcer of other part of right lower leg limited to breakdown of skin; N50.89 Other specified disorders of the male genital organs; I10 Essential (primary) hypertension; B19.20 Unspecified viral hepatitis C without hepatic coma; F10.10 Alcohol abuse, uncomplicated; F19.10 Other psychoactive substance abuse, uncomplicated
CPT/HCPCS: 36415; 71046-TC-FY; 80053; 81003; 82140; 83735; 83880; 84100; 85025; 93005; 93010; 99283-25

== ENCOUNTER 2018-10-25 23:26 | Emergency (ER) | payer OTHER ==
--- NOTE | 2018-10-26 00:56 | PDOC ---
History of Present Illness - General Stated Complaint: MRSA Time Seen by Provider: 10/26/18 00:18 History Source: Patient Exam Limitations: No Limitations - History of Present Illness Initial Comments: 10/26/18 00:56 48 yo male pmh HTN, alcohol abuse, polysubstance abuse, hepC, Zak class C cirrhosis with ascites, h/o hepatic encephgalopathy, esophageal varices s/p banding (2018), anemia, chronic RLE wound who presents to the ED with diffuse abdominal pain. Pt seen in the ED 10/17/2018, as per note, pt has possible SBP, paracentesis offered pt AMA after receiving ceftriaxone. Pt complains of diffuse abdominal pain and chronic RLE non healing ulcer with pain unchanged since last ED visit. Last paracentesis 7 months ago, reports normal fluid analysis. Pt states he require drainage of his ascites today which has helped him in the past. Pt never seen GI as an outpatient. He says that he was never told to see anyone outside of the hospital, and he does not recall ever having seen a specialist while in the hospital. Past History - Past Medical History Allergies/Adverse Reactions: Allergies Allergy/AdvReac Type Severity Reaction Status Date / Time morphine Allergy Verified 10/17/18 12:08 Home Medications: Ambulatory Orders Albuterol Sulfate Inhaler - [Ventolin HFA Inhaler -] 2 puff IH Q4H PRN #1 inhaler 02/15/17 Pantoprazole Sodium [Protonix] 40 mg PO DAILY #30 tablet. 02/15/17 Spironolactone [Aldactone -] 75 mg PO BID #60 tablet 02/15/17 Thiamine HCl [Vitamin B1 -] 100 mg PO HS tablet 09/27/17 Nadolol 80 mg PO DAILY 07/23/18 Quetiapine Fumarate [Seroquel -] 25 mg PO BID 07/23/18 Anemia: No Asthma: No Cancer: No Cardiac Disorders: No CVA: No COPD: No CHF: No DVT: No Dementia: No Diabetes: No Dialysis: No GI Disorders: Yes (GI BLEED, SBO) Disorders: No HTN: Yes Hypercholesterolemia: No Liver Disease: Yes (HEPATITS C,cirrhosis) Psychiatric Problems: Yes (anxiety) Seizures: No Thyroid Disease: No - Surgical History Abdominal Surgery: Yes (GI BLEED/HERNIA, Partial SBO resection) Appendectomy: No Cardiac Surgery: No Cholecystectomy: No Lung Surgery: No Neurologic Surgery: Yes Orthopedic Surgery: No - Immunization History Immunization Up to Date: Yes - Suicide/Smoking/Psychosocial Hx Smoking Status: Yes Smoking History: Never smoked Have you smoked in the past 12 months: No Number of Cigarettes Smoked Daily: 3 If you are a former smoker, when did you quit?: 10yrs 'Breaking Loose' booklet given: 09/24/17 Hx Alcohol Use: Yes (DAILY) Drug/Substance Use Hx: No Substance Use Type: Alcohol, Heroin Hx Substance Use Treatment: (unobtainable) Review of Systems - Review of Systems Constitutional: No: Chills, Fever HEENTM: No: Blurred Vision, Double Vision Respiratory: No: Shortness of Breath Cardiac (ROS): No: Chest Pain ABD/GI: Yes: Other (diffuse abdominal pain). No: Constipated, Diarrhea, Nausea , Vomiting : No: Burning, Dysuria, Discharge, Frequency, Flank Pain, Hematuria Musculoskeletal: No: Back Pain Integumentary: Yes: Other (RLE non healing ulcer) Neurological: No: Headache, Numbness, Paresthesia, Weakness *Physical Exam - Physical Exam General Appearance: Yes: Nourished, Appropriately Dressed, Apparent Distress ( distended abdomen with redness and tenderness) HEENT: positive: EOMI, REN Neck: positive: Supple. negative: Carotid bruit Respiratory/Chest: positive: Lungs Clear, Normal Breath Sounds. negative: Respiratory Distress, Accessory Muscle Use, Crackles, Rales, Rhonchi, Stridor, Wheezing Cardiovascular: positive: Regular Rhythm, S1, S2, Edema, Tachycardia. negative : JVD, Murmur Vascular Pulses: Dorsalis-Pedis (R): 2+, Doralis-Pedis (L): 2+ Gastrointestinal/Abdominal: positive: Normal Bowel Sounds, Flat, Soft, Distended , Tenderness (diffuse). negative: Pulsatile Mass, Guarding, Rebound Musculoskeletal: negative: CVA Tenderness Extremity: positive: Normal Capillary Refill, Other (chronic non healing RLE ulcer with drainage and pain) Integumentary: positive: Dry, Warm, Other (patchy erythema over abdomen ) Neurologic: positive: factorer II-XII NML intact, Fully Oriented, Alert, Normal Mood/ Affect, Normal Response, Motor Strength 06/17 ED Treatment Course - LABORATORY CBC & Chemistry Diagram: 10/26/18 01:50 10/26/18 01:50 Medical Decision Making - Medical Decision Making 10/26/18 07:57 48 yo male pmh HTN, alcohol abuse, polysubstance abuse, hepC, Zak class C cirrhosis with ascites, h/o hepatic encephgalopathy, esophageal varices s/p banding (2018), anemia, chronic RLE wound who presents to the ED with diffuse abdominal pain. Pt seen in the ED 10/17/2018, as per note, pt has possible SBP, paracentesis offered pt AMA after receiving ceftriaxone. Pt complains of diffuse abdominal pain and chronic RLE non healing ulcer with pain unchanged since last ED visit. Last paracentesis 7 months ago, reports normal fluid analysis. Pt states he require drainage of his ascites today which has helped him in the past. Pt never seen GI as an outpatient. He says that he was never told to see anyone outside of the hospital, and he does not recall ever having seen a specialist while in the hospital. Pt covered with vanc and zosyn Paracentesis LLQ done, fluid pocket visualized. Procedure done sterile with local lido for pain control. 60 cc of dark red fluid drained appearing to be blood. Concerns for possible abdominal hemorrhage at this time especially with low platelets and high INR along with diffuse abdominal tenderness. Sample of fluid sent to r/o SBP Pt refused contrast for APCT due to concerns about affect on his health. Explained need for contrast and risks and benefits, pt refuses, dry scan ordered Pending results of APCT, S/O to day team for further care and admission *DC/Admit/Observation/Transfer Diagnosis at time of Disposition: Ascites - Referrals - Patient Instructions - Post Discharge Activity
[2018-10-26] MEDS ORDERED: VANCOMYCIN 1 GM in D5W (PRE-DOCKED) 1,000 MG/250 ML IVPB ONE (02:09)
[2018-10-26] MEDS ORDERED: PIPERACILLIN/TAZOB 4.5 GM 4.5 GM in DEXTROSE 5%-WATER 100 ML IVPB ONE (02:10)
[2018-10-26 02:16] VITALS: BMI 30.1
[2018-10-26] MEDS ORDERED: VANCOMYCIN 1 GRAM (PRE-DOCKED) 1,000 MG/250 ML BAG IVPB ONE (02:34)
[2018-10-26] MEDS ORDERED: PIPERACILLIN/TAZOB 4.5 GM 4.5 GM/100 ML BAG IVPB ONE (02:34)
[2018-10-26] MEDS ORDERED: KETOROLAC TROMETHAMINE 15 MG/ML VIAL IVPUSH ONE (02:45)
[2018-10-26] MEDS ORDERED: KETOROLAC TROMETHAMINE 15 MG/ML VIAL ONE (02:45)
[2018-10-26 02:46] LABS: BASO % 1.3 % (0-2.0); EOS % 2.2 % (0-4.5); HEMATOCRIT 23.9 % (35.4-49); HEMOGLOBIN 7.7 GM/dL (11.7-16.9); INR 1.93 (0.83-1.09); LYMPH % 3.9 % (8-40); MCH 29.4 pg (25.7-33.7); MCHC 32.1 g/dl (32.0-35.9); MEAN CELL VOLUME 91.7 fl (80-96); MEAN PLT VOLUME 7.4 fl (7.5-11.1); MONO % 9.4 % (3.8-10.2); NEUT % 83.2 % (42.8-82.8); PLATELET COUNT 54 K/MM3 (134-434); PROTHROMBIN TIME (PATIENT) 22.9 SEC (9.7-13.0); RBC 2.61 M/mm3 (4.00-5.60); RDW 22.5 % (11.9-15.9); WHITE BLOOD COUNT 11.7 K/mm3 (4.0-10.0)
[2018-10-26 03:01] LABS: ALBUMIN 2.3 g/dl (3.4-5.0); BILIRUBIN,TOTAL 11.6 mg/dL (0.2-1); BLOOD UREA NITROGEN 22.9 mg/dL (7-18); CALCIUM 7.9 mg/dL (8.5-10.1); CREATININE 1.2 mg/dL (0.55-1.3); POTASSIUM 4.5 mmol/L (3.5-5.1); TOT PROT 6.4 g/dl (6.4-8.2)
--- NOTE | 2018-10-26 03:12 | PDOC ---
Attending Attestation - Resident Resident Name: Cl Bourne - ED Attending Attestation I have performed the following: I have examined & evaluated the patient, The case was reviewed & discussed with the resident, I agree w/resident's findings & plan, Exceptions are as noted - HPI HPI: 10/26/18 02:40 48 M with h/o HTN, ETOH, polysubstance abuse, HCV, cirrhosis, hepatic encephalopathy, esophageal varices s/p banding, chronic RLE wound, presenting to ED with abdominal pain and RLE pain. Pt states that he feels his abdomen is distended and needs to have his ascites drained. Pt last had it drained a month ago at [facility]. Pt denies F/C. Endorses diffuse pain. Pt was seen here 1 week ago for similar complaints. However, pt eloped prior to completion of care. - Physicial Exam PE: 10/26/18 03:16 Agree with resident exam - Medical Decision Making 10/26/18 03:16 48 M with cirrhosis, presenting with abdominal pain and distention. Low suspicion for SBP as pt afebrile, but will evaluate with paracentesis. Pt also with likely infected RLE wound. - Labs - paracentesis - Abx - Admit Pt signed out to day team at 7AM, pending labwork and admission to hospital
[2018-10-26] MEDS ORDERED: SODIUM CHLORIDE 1,000 ML IV STA (04:00)
[2018-10-26 07:04] VITALS: TEMP 98.8
[2018-10-26 08:22] LABS: ANISOCYTOSIS 2+
[2018-10-26 08:23] LABS: PLATELET ESTIMATE DECREASED
[2018-10-26 08:46] LABS: BASO % 0.1 % (0-2.0); EOS % 2.4 % (0-4.5); HEMATOCRIT 22.9 % (35.4-49); HEMOGLOBIN 7.6 GM/dL (11.7-16.9); MCH 29.9 pg (25.7-33.7); MCHC 33.3 g/dl (32.0-35.9); MEAN CELL VOLUME 89.8 fl (80-96); MEAN PLT VOLUME 7.4 fl (7.5-11.1); MONO % 10.2 % (3.8-10.2); NEUT % 84.3 % (42.8-82.8); PLATELET COUNT 59 K/MM3 (134-434); RBC 2.55 M/mm3 (4.00-5.60); WHITE BLOOD COUNT 10.6 K/mm3 (4.0-10.0)
[2018-10-26 10:18] LABS: BILIRUBIN,DIRECT 6.3 mg/dL (0.0-0.2)
[2018-10-26 10:28] LABS: PERITONEAL RBC 95248 /mm3
[2018-10-26 10:34] VITALS: BP 123/67; PULSE 97
[2018-10-26 13:18] LABS: ANISOCYTOSIS 1+; MACROCYTOSIS 0; OVALOCYTE 1+; PLATELET ESTIMATE DECREASED; TEAR DROP CELLS 1+; TOXIC GRANULATION 1+
--- NOTE | 2018-10-26 13:59 | EKG ---
Test Reason : Blood Pressure : / mmHG Vent. Rate : 115 BPM Atrial Rate : 115 BPM P-R Int : 130 ms QRS Dur : 086 ms QT Int : 354 ms P-R-T Axes : 048 015 029 degrees QTc Int : 489 ms SINUS TACHYCARDIA OTHERWISE NORMAL ECG WHEN COMPARED WITH ECG OF 17-OCT-2018 12:50, PREMATURE ATRIAL COMPLEXES ARE NO LONGER PRESENT Confirmed by CARLOS CALLES MD ([id number]) on 10/26/2018 1:59:08 PM Referred By: Confirmed By:CARLOS CALLES MD
[2018-10-26 14:36] LABS: PERITONEAL FLUID LYMPHOCYTE 23 %; PERITONEAL FLUID MACROPHAGE 37 %; PERITONEAL FLUID MESOTHELIAL 7 %; PERITONEAL FLUID MONOCYTE 5 %; PERITONEAL FLUID NEUTROPHIL 28 %
--- NOTE | 2018-10-26 18:48 | PDOC ---
*Physical Exam - Vital Signs Last Vital Signs Temp Pulse Resp BP Pulse Ox 98.8 F 97 H 18 123/67 99 10/26/18 10:41 10/26/18 10:41 10/26/18 10:41 10/26/18 10:41 10/26/18 10:33 - Physical Exam General Appearance: Yes: Disheveled HEENT: positive: Symmetrical Neck: positive: Trachea midline, Supple Respiratory/Chest: positive: Lungs Clear, Normal Breath Sounds Cardiovascular: positive: Regular Rhythm, Regular Rate, S1, S2 Gastrointestinal/Abdominal: positive: Tender (diffuse tenderness to palpation), Soft Extremity: positive: Other (RLE with nonhealing ulcer and drainage) Integumentary: positive: Dry ED Treatment Course - LABORATORY CBC & Chemistry Diagram: 10/26/18 08:40 10/26/18 01:50 - ADDITIONAL ORDERS Additional order review: Laboratory Results 10/26/18 10/26/18 10/26/18 07:40 07:40 01:50 Sodium 132 L Potassium 4.5 Chloride 104 Carbon Dioxide 23 Anion Gap 5 L BUN 22.9 H Creatinine 1.2 Est GFR (CKD-EPI)AfAm 82.96 Est GFR (CKD-EPI)NonAf 71.58 Random Glucose 76 Calcium 7.9 L Total Bilirubin 11.6 H D Direct Bilirubin 6.3 H AST 102 H ALT 24 Alkaline Phosphatase 122 H LD Total Cancelled 606 H Total Protein 6.4 Albumin Cancelled 2.3 L Peritoneal WBC 94 Peritoneal RBC 41564 Periton Neutrophils 28 Periton Lymphocytes 23 Peritoneal Monocytes 5 Periton Mesothelial 7 Periton Macrophages 37 Peritoneal Diff Commnt Very bloody fluid 10/26/18 01:50 Gram Stain - Final Cellulitis 10/26/18 07:40 Gram Stain - Final Paracentesis 10/26/18 10/26/18 08:40 01:50 RBC 2.55 L 2.61 L MCV 89.8 91.7 MCHC 33.3 32.1 RDW 22.0 H 22.5 H MPV 7.4 L 7.4 L Neutrophils % 84.3 H 83.2 H Lymphocytes % 3.0 L D 3.9 L D Monocytes % 10.2 9.4 Eosinophils % 2.4 2.2 Basophils % 0.1 1.3 - Medications Given in the ED: ED Medications Discontinued Medications Generic Name Dose Route Start Last Admin Trade Name Freq PRN Reason Stop Dose Admin Piperacillin Sod/Tazobactam 100 mls @ 200 mls/hr 10/26/18 02:10 10/26/18 02: 38 Sod 4.5 gm/ Dextrose IVPB 10/26/18 02:39 200 mls/hr ONCE ONE Administration Protocol Sodium Chloride 1,000 mls @ 1,000 mls/hr 10/26/18 04:00 10/26/18 05:00 Normal Saline - IV 10/26/18 04:59 1,000 mls/hr ASDIR STA Administration Ketorolac Tromethamine 15 mg 10/26/18 02:45 10/26/18 02:52 Toradol Injection - IVPUSH 10/26/18 02:46 15 mg ONCE ONE Administration Vancomycin HCl 1,000 mg 10/26/18 02:09 10/26/18 03:05 Vancomycin (Pre-Docked) IVPB 10/26/18 02:10 1,000 mg ONCE ONE Administration Protocol Medical Decision Making - Medical Decision Making 10/27/18 12:10 Patient signed out by night team. Patient was uncooperative with interview when seen at bedside. Patient came in for diffuse abdominal tenderness with distension and RLE extremity pain. Patient was requesting drainage of ascites. As per night team, fluid was drained under ultrasound guidance with drainage of red fluid. Patient was pending labs and CT abd&pelvis scan at time of signout. Patient denied CT scan with contrast due to health concerns as he had a family member who had a reaction to contrast scan. CT scan showed possible splenic artery aneurysm, need contrast scan study to confirm, cirrhosis, ascites, anasarca, splenomegaly with collateral vessels. Hospitalist service was microblogged to discuss admission into hospital. Hospitalist service had concerns about management of patient due to possible hepatic encephalopathy and possible need for liver transplant. GI was consulted and recommended transfer. [facility] was called and accepted patient for transfer. Patient was transferred to [facility]. *DC/Admit/Observation/Transfer Diagnosis at time of Disposition: Ascites - Discharge Dispostion Disposition: TRANSFER ACUTE CARE/OTHER HOSP Condition at time of disposition: Fair Decision to Admit order Date/Time: Decision to Admit Order Category Date Time Status Decision to Admit to Hospital Routine Admission 10/26/18 09:20 Active - Referrals - Patient Instructions - Post Discharge Activity
[2018-10-29 15:07] LABS: BODY FLUID ALBUMIN 0.6 g/dL (.)
== END 2018-10-26 11:05 | disposition short-term general hospital (02) ==
LOC: JER 23:26
PROC: 3E0333Z Introduction of Anti-inflammatory into Peripheral Vein, Percutaneous Approach (ICD-10-PCS; principal; 2018-10-25)
PROC: 3E03329 Introduction of Other Anti-infective into Peripheral Vein, Percutaneous Approach (ICD-10-PCS; 2018-10-25)
PROC: 3E0337Z Introduction of Electrolytic and Water Balance Substance into Peripheral Vein, Percutaneous Approach (ICD-10-PCS; 2018-10-25)
DX: R18.8 Other ascites (principal); B19.20 Unspecified viral hepatitis C without hepatic coma; I10 Essential (primary) hypertension; F10.10 Alcohol abuse, uncomplicated; I85.00 Esophageal varices without bleeding
CPT/HCPCS: 36415; 71045-TC-FY; 73590-TC-RT-FY; 74176-TC; 80053; 82042; 82140; 82248; 83605; 83615; 85025; 85610; 87040; 87070; 87075; 87077; 87186; 87205; 89051; 93005; 93010; 99285-25; J7030